=== PATIENT | female | born 1975 | race Caucasian/White ===

== ENCOUNTER 2022-09-03 08:05 | Outpatient (OUT) | payer BC, SELFPAY ==
[2022-09-03 10:10] LABS: Alanine Aminotransferase 31 U/L (14-59); Albumin Globulin Ratio 1.3; Albumin Level 4.2 g/dL (3.4-5.0); Alkaline Phosphatase 63 U/L (46-116); Anion Gap 9.4; Aspartate Amino Transferase 16 U/L (15-37); BUN Creatinine Ratio 23.2; Bilirubin Total 0.4 mg/dL (0.2-1.0); Calcium 9.5 mg/dL (8.5-10.1); Carbon Dioxide 31.5 mmol/L (21.0-32.0); Chloride 104 mmol/L (98-107); Chol HDL Ratio 3.8; Cholesterol 158 mg/dL (<=200); Estimated GFR (African America >60 (>=60); Estimated GFR (Non-African Ame >60 (>=60); Globulin 3.3 g/dL; Glucose 113 mg/dL (74-106); HDL Cholesterol 42 mg/dL (40-60); Potassium 3.9 mmol/L (3.5-5.1); Sodium 141 mmol/L (136-145); Total Protein 7.5 g/dL (6.4-8.2); Triglycerides 85 mg/dL (<=150)
[2022-09-08 22:06] LABS: Free Testosterone(Direct) 1.3 pg/mL (0.0-4.2); Testosterone 22 ng/dL (4-50)
== END 2022-09-03 08:06 | disposition home or self-care (01) ==
PROVIDERS: PCP Nurse Practitioner; Visit Provider Nurse Practitioner
DX: E28.39 Other primary ovarian failure (principal); E78.5 Hyperlipidemia, unspecified; R79.89 Other specified abnormal findings of blood chemistry
CPT/HCPCS: 36415; 80053; 80061; 82306; 82533; 82627; 84402; 84403

== ENCOUNTER 2023-05-12 07:32 | Outpatient (OUT) | payer BC, SELFPAY ==
--- NOTE | 2023-05-12 07:36 | MM_ITS ---
Patient Name: AUDREY MUÑOZ MR#: [id number] : 1975 Exam Date: 05/12/2023 Ordering Doctor: VANCE Nickerson CNP RADIOLOGY REPORT PROCEDURE: MM TOMOSYNTHESIS SCREENING BI COMPARISON: MG MAMM RT DIAG FU, 04/08/2016. MG MAMM SCREEN 3D DIEGO CAD, 01/11/2022. INDICATIONS: Screening Calculator Name NCI Breast Cancer Risk Assessment Tool 5 Year Breast Cancer Risk 1.50% Lifetime Breast Cancer Risk 11.70% Personal Breast Cancer No Personal Ovarian Cancer No Treatments None Family Cancers Grandmother-maternal with breast cancer at age ~78; Grandfather-maternal with brain cancer at age ~55; Grandmother-paternal with leukemia cancer at age ~72. LOCATION: [facility] BREAST COMPOSITION: Heterogeneously dense,which may obscure small masses. FINDINGS: DIAGNOSTIC CATEGORY 2--BENIGN FINDING. NO CHANGE FROM COMPARISON. Scattered benign-appearing nodules are present. Scattered benign-appearing calcifications are present. Scattered benign-appearing lymph nodes are present. RIGHT BREAST: No significant suspicious finding. LEFT BREAST: No significant suspicious finding. RECOMMENDATIONS: ROUTINE MAMMOGRAM AND CLINICAL EVALUATION IN 12 MONTHS. PLEASE NOTE: A NORMAL MAMMOGRAM DOES NOT EXCLUDE THE POSSIBILITY OF BREAST CANCER. A CLINICALLY SUSPICIOUS PALPABLE LUMP SHOULD BE BIOPSIED. Dictated by: Gabe Gutierrez MD on 05/12/2023 at 08:45 Approved by: Gabe Gutierrez MD on 05/12/2023 at 08:48
[2023-05-13 04:07] LABS: Estradiol 5.7 pg/mL (.); Progesterone 0.2 ng/mL (.)
[2023-05-14 21:08] LABS: Free Testosterone(Direct) 0.6 pg/mL (0.0-4.2); Testosterone 10 ng/dL (4-50)
[2023-05-17 16:09] LABS: Estrogens, Total 70 pg/mL (.)
== END 2023-05-12 07:33 | disposition home or self-care (01) ==
LOC: MAMMO 07:32
PROVIDERS: PCP Nurse Practitioner; Visit Provider Nurse Practitioner
DX: Z12.31 Encounter for screening mammogram for malignant neoplasm of breast (principal); Z78.0 Asymptomatic menopausal state; Z80.3 Family history of malignant neoplasm of breast; Z80.6 Family history of leukemia; Z80.8 Family history of malignant neoplasm of other organs or systems
CPT/HCPCS: 36415; 77063; 77067; 82306; 82627; 82670; 82672; 84140; 84144; 84402; 84403

== ENCOUNTER 2023-08-19 08:04 | Outpatient (OUT) | payer BC, SELFPAY ==
--- NOTE | 2023-08-19 08:11 | VEIN_ITS ---
Patient Name: AUDREY MUÑOZ MR#: [id number] : 1975 Exam Date: 08/19/2023 Ordering Doctor: VANCE TAYLOR CNP RADIOLOGY REPORT PROCEDURE: [facility] - OFFICE VISIT INITIAL COMPARISON: None. PROGRESS NOTES: [age] year old female who presents with a 1 year history of bilateral leg pain, spasm, and edema. The patient's leg symptoms are symmetric bilaterally. There has been a progression of symptoms over time. This increases with prolonged leg dependency. The patient describes an improvement with rest, elevation, and exercise. The patient denies any signs and symptoms to suggest arterial ischemia. The patient describes a family history varicose veins on maternal and paternal side. The patient has drinking and smoking history of occasional alcohol consumption; daily smoker. Patient has a past medical history significant for hypertension, hypercholesterolemia, endometriosis. The patient denies a history of deep venous thrombus or pulmonary embolus. See separate history and physical for medication list. No prior treatment for varicose or spider veins. Current use of compression stockings. After review of nurse notes, history and physical exam I discussed at length the pathophysiology of venous hypertension and possible treatments, therapies and strategies available. We discussed at length the importance of elevating the lower extremities above the level of the heart, increased physical activity and compression stocking use. Ultrasound venous reflux study performed today was discussed at length with the patient. The report demonstrates abnormally dilated and incompetent right great saphenous vein with associated branch saphenous varicosities. PHYSICAL EXAM: The right leg demonstrates a few varicosities, multiple reticular and spider spider veins, no ulceration, mild edema, no skin discoloration. The left leg demonstrates no significant varicosities, multiple reticular and spider veins, no ulceration, mild edema, no skin discoloration. Both thighs, legs and feet were symmetrically warm to the touch. Good posterior tibial and dorsalis pedis pulses were present bilaterally. VEIN/VC Facility EST Comprehensive IMPRESSION: 1. Right greater than left lower extremity venous insufficiency 2. Right lower extremity varicose veins 3. Mild bilateral lower extremity subcutaneous edema 4. No flow significant arterial disease 5. CEAP: C3, EC, , LA PLAN: 1. Continued use of compression stockings 2. Elevated legs and increased physical activity symptomatic relief 3. Endovenous laser ablation of right great saphenous vein. 4. Microfoam chemical ablation of lower extremity incompetent branch saphenous varicosities. 5. Sclerotherapy of multiple reticular and spider veins of lower extremities. Nurse notes, history and physical were reviewed and confirmed, see attached forms. The nurse was present throughout the physical exam and consultation Dictated by: Ben Hollingsworth M.D. on 08/19/2023 at 12:43 Approved by: Ben Hollingsworth M.D. on 08/19/2023 at 12:51
--- NOTE | 2023-08-19 08:11 | VEIN_ITS ---
Patient Name: AUDREY MUÑOZ MR#: [id number] : 1975 Exam Date: 08/19/2023 Ordering Doctor: VANCE TAYLOR CNP RADIOLOGY REPORT PROCEDURE: VC EXT VENOUS REFLUX DIEGO LMTD COMPARISON: None. INDICATIONS: Pain due to varicose veins of bilateral legs I83.813 TECHNIQUE: Duplex imaging of the lower extremity to assess the deep and superficial venous system for the presence of deep or superficial venous incompetence and to document the location and severity of disease. The study includes evaluation of the great saphenous vein (GSV), anterior accessory saphenous vein (AASV) and small saphenous vein (SSV). Patient scanned in reverse Trendelenburg and standing. FINDINGS: RIGHT LOWER EXTREMITY: Saphenofemoral Junction Reflux: Yes 11.0mm 1.8 sec GSV: Diam (mm) Reflux/ Time (sec) Proximal Thigh 7.8 Yes 1.9 Mid Thigh 5.4 Yes 1.5 Distal Thigh 4.3 No Prox Calf 3.6 Yes 0.9 Mid Calf 3.8 No Saphenopopliteal Junction Reflux: 3.5mm Yes 0.5 SSV: Proximal Calf 2.4 No Mid Calf N/A AASV: Proximal Thigh 4.2 Yes 0.6 Mid Thigh 3.3 No Distal Thigh Thrombi: No acute or chronic thrombus visualized Compressibility: Normal Flow: Normal Preforator: Dist/med calf 3.2mm with 1.0s reflux. Tech Note: Incompetent GSV. Patent varicose vein dist/med calf 3.8mm with 2.0s reflux. Patent varicose vein mid/med calf 3.7mm with 0.7s reflux. Patent varicose vein mid/med thigh 4.7mm with 1.2s reflux. LEFT LOWER EXTREMITY: Saphenofemoral Junction Reflux: Yes 7.9 mm 2.8 sec GSV: Diam (mm) Reflux/Time (sec) Proximal Thigh 5.6 Yes 2.1 Mid Thigh 1.4 No Distal Thigh 1.5 No Prox Calf 1.2 No Mid Calf 1.2 No Saphenopopliteal Junction Relux: 4.3 mm Yes 0.6 SSV: Proximal Calf 4.5 No Mid Calf 2.4 No AASV: Proximal Thigh 3.7 No Mid Thigh 1.8 No Distal Thigh Thrombi: No acute or chronic thrombus visualized Compressibility: Normal Flow: Normal [employer]: Dist/med calf 2.3mm with 0s reflux. Tech Note: Incompetent GSV. GSV is extrafascial from mid thigh to mid calf. No varicose veins visualized. CONCLUSION: 1. Abnormally dilated and incompetent right great saphenous vein with associated incompetent branch saphenous varicosities. Dictated by: Ben Hollingsworth M.D. on 08/19/2023 at 09:36 Approved by: Ben Hollingsworth M.D. on 08/19/2023 at 09:45
--- NOTE | 2023-08-19 08:27 | VEINCLINIC_ITS ---
Vital Signs 3 08/19/23 08:58 Height 5 ft 9 in Weight 103.419 kg BMI 33.7 BP 104/72 BP Location Right Brachial BP Position Supine BP Cuff Size Adult BP Source Manual Cuff Respiration 16 Pulse 53 L Pulse Oximetry (%) 98 Varicose Veins Patient states symptoms in legs are equal bilaterally. thigh: bilateral, knee: bilateral, calf: bilateral, ankle: bilateral and simmons: bilateral aching, cramping, sharp and intermittent 8 1 year Worsened in recent months: Yes other (denies) other (daily anti-inflammatory) Reports muscle spasms of leg, limb pain and leg edema (pitting) History of lower extremity trauma: No Superficial thrombophlebitis: No Family history of varicose veins: yes (mother and father) Has patient had previous lower extremity venous surgery: No Patient has previously received the following treatment(s) for lower extremity varicose veins: Reports none Does patient have a history of : yes (grav 3 para 2) Does patient intend to have future pregnancies: no Has patient had lower extremity venous scan with relux testing: Yes Support hose used: Yes (6 months) Prescribed by provider: No Problems walking or doing physical activity: No Do you walk much: Yes Do you stand much: Yes Medication compliance: good Large amounts of Vitamin K: No Review of Systems 2 ROS0 Narrative I,Ben Hollingsworth MD personally performed the services described in this documentation, as scribed by Kelsi Sal RN in my presence and it is both accurate and complete. IKelsi RN, am scribing for, and in the presence of, Dr. Ben Hollingsworth and in the presence of the patient. 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 - Non-Hodgkin lymphoma, unspecified, lymph nodes of axilla and upper limb (ICD-10) Hemorrhage following tonsillectomy and adenoidectomy ?J95.830 - Postprocedural hemorrhage of a respiratory system organ or structure following a respiratory system procedure (ICD-10) Encounter for cholecystectomy ?Z76.89 - Persons encountering health services in other specified circumstances (ICD-10) Lymphedema ?I89.0 - Lymphedema, not elsewhere classified (ICD-10) Migraines ?G43.909 - Migraine, unspecified, not intractable, without status migrainosus (ICD-10) Gastroesophageal reflux ?K21.9 - Gastro-esophageal reflux disease without esophagitis (ICD-10) Varicose veins of bilateral lower extremities with pain ?I83.813 - Varicose veins of bilateral lower extremities with pain (ICD-10) Hypertension ?I10 - Essential (primary) hypertension (ICD-10) Hypercholesteremia ?E78.00 - Pure hypercholesterolemia, unspecified (ICD-10) Endometriosis ?N80.9 - Endometriosis, unspecified (ICD-10) Surgical History (Updated 08/19/23 @ 10:02 by Kelsi Sal RN) H/O hernia repair ?Z98.890 - Other specified postprocedural states (ICD-10) ?Z87.19 - Personal history of other diseases of the digestive system (ICD-10) H/O arthroscopy of knee ?Z98.890 - Other specified postprocedural states (ICD-10) H/O: hysterectomy ?Z90.710 - Acquired absence of both cervix and uterus (ICD-10) Family History (Updated 08/19/23 @ 10:03 by Kelsi Sal, RN) Mother Family history of cancer Varicose veins of bilateral lower extremities with pain Grandmother Family history of diabetes mellitus Father Family history of hypertension Varicose veins of bilateral lower extremities with pain Son Family history of hypertension Grandfather Family history of stroke Social History (Updated 08/19/23 @ 08:47 by Kelsi Sal, RN) Within the past year, how often did you have a drink containing alcohol: monthly or less Smoking status: Current every day smoker Do you use any of these nicotine containing products: vaping products Non-prescribed substance use: denies use Meds Home Medications and Allergies Home Medications ?Medication ?Instructions ?Recorded ?Confirmed ?Type alprazolam 0.25 mg tablet (Xanax) 0.25 mg PO PRN 08/19/23 08/19/23 History atorvastatin 10 mg tablet 10 mg PO QPM 08/19/23 08/19/23 History hormonal cream 08/19/23 History hydrochlorothiazide 12.5 mg tablet 25 mg PO DAILY 08/19/23 08/19/23 History meloxicam 15 mg tablet 15 mg PO DAILY 08/19/23 08/19/23 History omeprazole 20 mg capsule,delayed 20 mg PO DAILY 08/19/23 08/19/23 History release Allergies Allergy/AdvReac Type Severity Reaction Status Date / Time rofecoxib [From Vioxx] Allergy Unknown Unknown Unverified 08/19/23 08:53 amoxicillin Allergy rash Unverified 08/19/23 08:53 iodine Allergy Rash Unverified 08/19/23 09:58 methylprednisolone Allergy itching Unverified 08/19/23 10:18 paroxetine [From Paxil] Allergy Unknown Unverified 08/19/23 08:53 sertraline [From Zoloft] Allergy Unknown Unverified 08/19/23 08:53 Exam Narrative Exam Narrative: IBen MD personally performed the services described in this documentation, as scribed by Kelsi Sal RN in my presence and it is both accurate and complete. Kelsi Zeng RN, am scribing for, and in the presence of, Dr. Ben Hollingsworth and in the presence of the patient. Constitutional Documenting provider has reviewed patient's vital signs: yes Common normals: oriented x3 Nutritional appearance: overweight Lymph Lymphatic: no lymphedema noted Cardio Peripheral pulses: posterior tibial pulses present and dorsalis pedis pulses present Extremity General: calf tenderness, edema and other findings (thigh cramps) Right lower extremity: lower leg Right lower leg: inspection (varicose veins visualized) and palpation (mild edema ) Left lower extremity: lower leg Left lower leg: inspection (varicose veins visualized) and palpation (mild edema) Extremity image (front): 2 1. variose veins 2. varicose veins Extremity image (back): 2 1. spider veins 2. spider veins Neuro Common normals: oriented x3 Results Imaging Venous US: Radiologist's impression: Incompetent right side GSV with mild varicosities Assessment and Plan Assessment and Plan (1) Varicose veins of bilateral lower extremities with pain: Plan Explained vein anatomy and physiology to patient. Explained the development of varicose veins to patient.? Explained varicose vein treatments to patient, including laser ablation, microfoam chemical ablation (Varithena), injection sclerotherapy and microphlebectomy.? Explained potential risks and benefits of varicose vein treatments.? Patient verbalizes understanding and wants to pursue varicose vein treatment.? Dr. Hollingsworth examines patient and reviews results of bilateral leg reflux u/s.?Dr. Hollingsworth and patient create plan of care. Patient also agrees to purchase bilateral thigh high compression stockings and wear them as educated.? Patient also educated on exercise and rest elevation of bilateral legs. Plan is for EVLT of right GSV, right varithena and right sclerotherapy. IBen MD personally performed the services described in this documentation, as scribed by Kelsi Sal RN in my presence and it is both accurate and complete. IKelsi RN, am scribing for, and in the presence of, Dr. Ben Hollingsworth and in the presence of the patient.
[2023-08-19 08:58] VITALS: BP 104/72; PULSE 53; O2SAT 98; BMI 33.7
--- NOTE | 2023-08-19 10:24 | W.VEIN ---
Discharge Plan Discharge Disposition: Home, Self-Care Outpatient Diagnostics: VC Endovenous Ablation 1VeinRT (Routine) Timeframe: 20231019 Facility: [facility] - Location: [facility] Ordered By: Ben Hollingsworth Follow Up Appointments: Patient will call in the fall to schedule. Patient Instructions: Venous Insufficiency (GEN) Print Language: Frisian Discharge Date/Time: 08/19/23 10:26
--- NOTE | 2023-08-19 14:16 | V.VEINS.HP ---
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 - Non-Hodgkin lymphoma, unspecified, lymph nodes of axilla and upper limb (ICD-10) Hemorrhage following tonsillectomy and adenoidectomy ?J95.830 - Postprocedural hemorrhage of a respiratory system organ or structure following a respiratory system procedure (ICD-10) Encounter for cholecystectomy ?Z76.89 - Persons encountering health services in other specified circumstances (ICD-10) Lymphedema ?I89.0 - Lymphedema, not elsewhere classified (ICD-10) Migraines ?G43.909 - Migraine, unspecified, not intractable, without status migrainosus (ICD-10) Gastroesophageal reflux ?K21.9 - Gastro-esophageal reflux disease without esophagitis (ICD-10) Varicose veins of bilateral lower extremities with pain ?I83.813 - Varicose veins of bilateral lower extremities with pain (ICD-10) Hypertension ?I10 - Essential (primary) hypertension (ICD-10) Hypercholesteremia ?E78.00 - Pure hypercholesterolemia, unspecified (ICD-10) Endometriosis ?N80.9 - Endometriosis, unspecified (ICD-10) Surgical History (Updated 08/19/23 @ 10:02 by Kelsi Sal RN) H/O hernia repair ?Z98.890 - Other specified postprocedural states (ICD-10) ?Z87.19 - Personal history of other diseases of the digestive system (ICD-10) H/O arthroscopy of knee ?Z98.890 - Other specified postprocedural states (ICD-10) H/O: hysterectomy ?Z90.710 - Acquired absence of both cervix and uterus (ICD-10) Family History (Updated 08/19/23 @ 10:03 by Kelsi Sal, RN) Mother Family history of cancer Varicose veins of bilateral lower extremities with pain Grandmother Family history of diabetes mellitus Father Family history of hypertension Varicose veins of bilateral lower extremities with pain Son Family history of hypertension Grandfather Family history of stroke Social History (Updated 08/19/23 @ 08:47 by Kelsi Sal RN) Within the past year, how often did you have a drink containing alcohol: monthly or less Smoking status: Current every day smoker Do you use any of these nicotine containing products: vaping products Non-prescribed substance use: denies use Meds Home Medications and Allergies Home Medications ?Medication ?Instructions ?Recorded ?Confirmed ?Type alprazolam 0.25 mg tablet (Xanax) 0.25 mg PO PRN 08/19/23 08/19/23 History atorvastatin 10 mg tablet 10 mg PO QPM 08/19/23 08/19/23 History hormonal cream 08/19/23 History hydrochlorothiazide 12.5 mg tablet 25 mg PO DAILY 08/19/23 08/19/23 History meloxicam 15 mg tablet 15 mg PO DAILY 08/19/23 08/19/23 History omeprazole 20 mg capsule,delayed 20 mg PO DAILY 08/19/23 08/19/23 History release Allergies Allergy/AdvReac Type Severity Reaction Status Date / Time rofecoxib [From Vioxx] Allergy Unknown Unknown Unverified 08/19/23 08:53 amoxicillin Allergy rash Unverified 08/19/23 08:53 iodine Allergy Rash Unverified 08/19/23 09:58 methylprednisolone Allergy itching Unverified 08/19/23 10:18 paroxetine [From Paxil] Allergy Unknown Unverified 08/19/23 08:53 sertraline [From Zoloft] Allergy Unknown Unverified 08/19/23 08:53 Exam Constitutional Vital Signs, click to edit/add: Last Vital Signs Pulse 53 L 08/19/23 08:58 Resp 16 08/19/23 08:58 BP 104/72 08/19/23 08:58 Pulse Ox 98 08/19/23 08:58 Assessment and Plan Assessment and Plan Plan Explained vein anatomy and physiology to patient. Explained the development of varicose veins to patient.? Explained varicose vein treatments to patient, including laser ablation, microfoam chemical ablation (Varithena), injection sclerotherapy and microphlebectomy.? Explained potential risks and benefits of varicose vein treatments.? Patient verbalizes understanding and wants to pursue varicose vein treatment.? Dr. Hollingsworth examines patient and reviews results of bilateral leg reflux u/s.?Dr. Hollingsworth and patient create plan of care. Patient also agrees to purchase bilateral thigh high compression stockings and wear them as educated.? Patient also educated on exercise and rest elevation of bilateral legs. Plan is for EVLT of right GSV, right varithena and right sclerotherapy. IBen MD personally performed the services described in this documentation, as scribed by Kelsi Sal RN in my presence and it is both accurate and complete. I, Kelsi Sal RN, am scribing for, and in the presence of, Dr. Ben Hollingsworth and in the presence of the patient.
--- NOTE | 2023-08-19 14:44 | VEINCLINIC_ITS ---
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 - Non-Hodgkin lymphoma, unspecified, lymph nodes of axilla and upper limb (ICD-10) Hemorrhage following tonsillectomy and adenoidectomy ?J95.830 - Postprocedural hemorrhage of a respiratory system organ or struct ure following a respiratory system procedure (ICD-10) Encounter for cholecystectomy ?Z76.89 - Persons encountering health services in other specified circumstances (ICD-10) Lymphedema ?I89.0 - Lymphedema, not elsewhere classified (ICD-10) Migraines ?G43.909 - Migraine, unspecified, not intractable, without status migrainosus (ICD-10) Gastroesophageal reflux ?K21.9 - Gastro-esophageal reflux disease without esophagitis (ICD-10) Varicose veins of bilateral lower extremities with pain ?I83.813 - Varicose veins of bilateral lower extremities with pain (ICD-10) Hypertension ?I10 - Essential (primary) hypertension (ICD-10) Hypercholesteremia ?E78.00 - Pure hypercholesterolemia, unspecified (ICD-10) Endometriosis ?N80.9 - Endometriosis, unspecified (ICD-10) Surgical History (Updated 08/19/23 @ 10:02 by Kelsi Sal RN) H/O hernia repair ?Z98.890 - Other specified postprocedural states (ICD-10) ?Z87.19 - Personal history of other diseases of the digestive system (ICD-10) H/O arthroscopy of knee ?Z98.890 - Other specified postprocedural states (ICD-10) H/O: hysterectomy ?Z90.710 - Acquired absence of both cervix and uterus (ICD-10) Family History (Updated 08/19/23 @ 10:03 by Kelsi Sal, RN) Mother Family history of cancer Varicose veins of bilateral lower extremities with pain Grandmother Family history of diabetes mellitus Father Family history of hypertension Varicose veins of bilateral lower extremities with pain Son Family history of hypertension Grandfather Family history of stroke Social History (Updated 08/19/23 @ 08:47 by Kelsi Sal RN) Within the past year, how often did you have a drink containing alcohol: monthly or less Smoking status: Current every day smoker Do you use any of these nicotine containing products: vaping products Non-prescribed substance use: denies use Meds Home Medications and Allergies Home Medications ?Medication ?Instructions ?Recorded ?Confirmed ?Type alprazolam 0.25 mg tablet (Xanax) 0.25 mg PO PRN 08/19/23 08/19/23 History atorvastatin 10 mg tablet 10 mg PO QPM 08/19/23 08/19/23 History hormonal cream 08/19/23 History hydrochlorothiazide 12.5 mg tablet 25 mg PO DAILY 08/19/23 08/19/23 History meloxicam 15 mg tablet 15 mg PO DAILY 08/19/23 08/19/23 History omeprazole 20 mg capsule,delayed 20 mg PO DAILY 08/19/23 08/19/23 History release Allergies Allergy/AdvReac Type Severity Reaction Status Date / Time rofecoxib [From Vioxx] Allergy Unknown Unknown Unverified 08/19/23 08:53 amoxicillin Allergy rash Unverified 08/19/23 08:53 iodine Allergy Rash Unverified 08/19/23 09:58 methylprednisolone Allergy itching Unverified 08/19/23 10:18 paroxetine [From Paxil] Allergy Unknown Unverified 08/19/23 08:53 sertraline [From Zoloft] Allergy Unknown Unverified 08/19/23 08:53 Exam Constitutional Vital Signs, click to edit/add: Last Vital Signs Pulse 53 L 08/19/23 08:58 Resp 16 08/19/23 08:58 BP 104/72 08/19/23 08:58 Pulse Ox 98 08/19/23 08:58 Assessment and Plan Assessment and Plan (1) Varicose veins of bilateral lower extremities with pain: Plan Explained vein anatomy and physiology to patient. Explained the development of varicose veins to patient.? Explained varicose vein treatments to patient, including laser ablation, microfoam chemical ablation (Varithena), injection sclerotherapy and microphlebectomy.? Explained potential risks and benefits of varicose vein treatments.? Patient verbalizes understanding and wants to pursue varicose vein treatment.? Dr. Hollingsworth examines patient and reviews results of bilateral leg reflux u/s.?Dr. Hollingsworth and patient create plan of care. Patient also agrees to purchase bilateral thigh high compression stockings and wear them as educated.? Patient also educated on exercise and rest elevation of bilateral legs. Plan is for EVLT of right GSV, right varithena and right sclerotherapy. IBen MD personally performed the services described in this documentation, as scribed by Kelsi Sal RN in my presence and it is both accurate and complete. I, Kelsi Sal RN, am scribing for, and in the presence of, Dr. Ben Hollingsworth and in the presence of the patient.
== END 2023-08-19 10:26 | disposition home or self-care (01) ==
PROVIDERS: PCP Nurse Practitioner; Visit Provider Nurse Practitioner
DX: I83.813 Varicose veins of bilateral lower extremities with pain (principal); R60.0 Localized edema
CPT/HCPCS: 93970; G0463

== ENCOUNTER 2023-10-09 13:14 | Outpatient (OUT) | payer BC, SELFPAY ==
--- NOTE | 2023-10-09 13:39 | MR_ITS ---
The [address] [address] Patient Name: AUDREY MUÑOZ MRN: [id number] date: 1975 Sex: F Assigned Patient Location: MRI Current Patient Location: MRI Accession/Order Number: [id number] Exam Date: 10/09/2023 13:50 Report Date: 10/09/2023 15:32 At the request of: MARCELLUS TAYLOR Procedure: MR head/brain wo con EXAM: MR head/brain wo con HISTORY: Dizziness R42 COMPARISON: None. TECHNIQUE: MRI of the brain was performed without contrast. FINDINGS: There is no restricted diffusion to suggest acute infarct. There is no midline shift, mass effect, or abnormal extraaxial fluid collections. The cortical sulci and ventricular system are within normal limits. There are a few nonspecific scattered foci of T2/FLAIR signal abnormality in the subcortical and periventricular white matter, likely reflect chronic microvascular ischemic changes. The major intracranial flow voids are visualized. The cerebellar tonsils are normal in position. The orbits are unremarkable. The paranasal sinuses show no air-fluid level. The mastoid air cells are clear. The calvarium and extracranial soft tissues are unremarkable. MR/MR head/brain wo con IMPRESSION: No acute intracranial abnormality. Mild T2/FLAIR signal abnormality in the supratentorial white matter, likely based on chronic microvascular ischemia or migraine headaches. Additional differential considerations include prior trauma, demyelination, vasculitis or Lyme disease. Recommend clinical correlation. Electronically authenticated by: JANNETH PRATER Date: 10/09/2023 15:32
== END 2023-10-09 13:15 | disposition home or self-care (01) ==
LOC: MRI 13:15
PROVIDERS: PCP Nurse Practitioner; Visit Provider Nurse Practitioner
DX: R00.2 Palpitations (principal); R42 Dizziness and giddiness
CPT/HCPCS: 70551; 93242

== ENCOUNTER 2023-10-10 07:32 | Outpatient (OUT) | payer BC, SELFPAY ==
--- OUTSIDE RECORDS SUMMARY | 2023-10-10 07:34 | XMS_ITS | CCD ---
Author Organization [facility] Care Team Providers Care Card Table Attendant Name Role Phone YESICA NICKERSON Primary Care Physician [phone] AICHHOLZ, WOOD HEEL FINISHER YESICA Primary Care Unavailable AICHHOLZ, WOOD HEEL FINISHER YESICA Admitting Unavailable DR DOUGLAS SOLANO V Consulting Unavailable AICHHOLZ, WOOD HEEL FINISHER YESICA Attending Unavailable AICHHOLZ, WOOD HEEL FINISHER YESICA Consulting Unavailable AICHHOLZ, WOOD HEEL FINISHER YESICA Attending Unavailable AICHHOLZ, WOOD HEEL FINISHER YESICA Consulting Unavailable AICHHOLZ, WOOD HEEL FINISHER YESICA Primary Care Unavailable AICHHOLZ, WOOD HEEL FINISHER YESICA Admitting Unavailable AICHHOLZ, WOOD HEEL FINISHER YESICA Attending Unavailable AICHHOLZ, WOOD HEEL FINISHER YESICA Consulting Unavailable AICHHOLZ, WOOD HEEL FINISHER YESICA Primary Care Unavailable AICHHOLZ, WOOD HEEL FINISHER YESICA Admitting Unavailable AICHHOLZ, WOOD HEEL FINISHER YESICA Attending Unavailable AICHHOLZ, WOOD HEEL FINISHER YESICA Consulting Unavailable AICHHOLZ, WOOD HEEL FINISHER YESICA Primary Care Unavailable AICHHOLZ, WOOD HEEL FINISHER YESICA Admitting Unavailable DR BEN HOLLINGSWORTH Consulting Unavailable AICHHOLZ, WOOD HEEL FINISHER YESICA Consulting Unavailable AICHHOLZ, WOOD HEEL FINISHER YESICA Primary Care Unavailable AICHHOLZ, WOOD HEEL FINISHER YESICA Admitting Unavailable AICHHOLZ, WOOD HEEL FINISHER YESICA Attending Unavailable Elise Stone Unavailable MD Gopal Potter Attending Provider Yesica Nickerson Primary Care Provider Gopal Potter Attending Unavailable Gopal Potter Admitting Unavailable Yesica Nickerson Primary Care Unavailable Tika Otero Unavailable Boby Cevallos Attending Unavailable CASIEHULISSES, YESICA Attending Unavailable ZEESHAN BENSON Referring Unavailable ZEESHAN BENSON Attending Unavailable CASIEHULISSESYESICA Attending Unavailable YESICA NICKERSON Attending Unavailable SUNNI MATHEW Attending Unavailable YESICA NICKERSON Referring Unavailable Boby Cevallos Attending Unavailable Allergies Allergy Classification Reported Allergen(s) Allergy Type Date of Onset Reaction(s) Facility (9 sources) Amoxicillin; Translations: [amoxicillin] Drug Allergy 3 Unknown (qualifier value) [facility] (6 sources) Iodine; Translations: [iodine containing compounds] Drug allergy Eruption of skin (disorder) [facility] (7 sources) PARoxetine; Translations: [paroxetine] Drug Allergy 3 Unknown (qualifier value) [facility] (7 sources) Povidone-Iodine; Translations: [povidone iodine topical] Drug Allergy 3 Unknown (qualifier value) [facility] (7 sources) rofecoxib; Translations: [rofecoxib] Drug Allergy 3 Unknown (qualifier value) [facility] (7 sources) Sertraline; Translations: [sertraline] Drug Allergy 3 Unknown (qualifier value) [facility] (1 source) Adhesive agent Drug allergy (disorder) [facility] (4 sources) Iodine Drug Allergy 3 burning sensation, Redness of Skin [facility] (1 source) Latex Drug allergy (disorder) [facility] (2 sources) Cortisone; Translations: [cortisone] Drug Allergy 3 Itching [facility] (1 source) Amoxicillin Drug Allergy 3 [facility] (1 source) Iodine Drug Allergy 3 [facility] (1 source) PARoxetine Drug Allergy 3 [facility] (1 source) Povidone-Iodine Drug Allergy 3 [facility] (1 source) rofecoxib Drug Allergy 3 [facility] (1 source) Sertraline Drug Allergy 3 [facility] Medications Current Medications Medication Drug Class(es) Dates Sig (Normalized) Sig (Original) ALPRAZolam 0.25 mg oral tablet (4 sources) Benzodiazepine Start: 09-14-19 alprazolam 0.25 mg Tab 30 tab(s), Refills(s) 0 Start Date: 09/13/21 Status: Ordered atorvastatin 10 mg oral tablet (1 source) HMG-CoA Reductase Inhibitor Atorvastatin Calcium 10 MG Oral for 90 Days Active DHEA 10 MG (1 source) DHEA 10 MG as di rected Orally Active hydroCHLOROthiazide 25 mg oral tablet (2 sources) Thiazide Diuretic take 1 tablet by mouth every twenty-four hours hydroCHLOROthiazide 25 MG 1 capsule in the morning Orally Once a day Active hydroCHLOROthiaz gerson Active meloxicam 15 mg oral tablet (2 sources) Nonsteroidal Anti-inflammatory Drug take 1 tablet by mouth every twenty-four hours Meloxicam 15 MG 1 tablet Orally Once a day Active Meloxicam Active metaxalone 800 mg oral table t (4 sources) Start: 11-13-2021 metaxalone 800 mg Tab Refills(s) 0 Start Date: 11/13/21 Status: Ordered Completed/Discontinued Medications Medication Drug Class(es) Dates Sig (Normalized) Sig (Original) omeprazole 40 mg delayed release oral capsule (6 sources) Proton Pump Inhibitor Start: 09-13-2021 take 1 capsule by mouth once daily omeprazole 40 mg Cap-DR 30 EA, TAKE 1 CAPSULE BY MOUTH EVERY DAY, Refills(s) 0 Start Date: 09/13/21 Status: Ordered Omeprazole Activ e Problems Active Problems Problem Classification Problem Date Documented Da te Episodic/Chronic Conditions associated with dizziness or vertigo (1 source) Dizziness and giddiness; Translations: [Dizziness and giddiness] Onset: 09-23-2023 Episodic Malaise and fatigue (1 source) Asthenia; Translations: [Weakness] Onset: 09-23-2023 Episodic Menopausal disorders (4 sources) Menopausal and female climacteric states; Translations: [MENOPAUSAL FE CLIMACTERIC STATES] Onset: 04-19-2022 Chronic Menstrual disorders (2 sources) Amenorrhea; Translations: [Amenorrhea, unspecified] Chronic Other endocrine disorders (1 source) Other specified disorders of adrenal gland; Translations: [OTHER SPEC DISORDERS ADRENAL GLAND] Onset: 04-22-2022 Chronic Other nervous system disorders (1 source) Other chronic pain; Translations: [OTHER CHRONIC PAIN] Onset: 06-19-2021 Chronic Other nutritional; endocrine; and metabolic disorders (1 source) Obesity, unspecified; Translations: [OBESITY UNSPECIFIED] Onset: 04-22-2022 Chronic Other nutritional; endocrine; and metabolic disorders (1 source) Body mass index (BMI) 30.0-30.9, adult; Translations: [BODY MASS INDEX BMI 30.0-30.9 ADULT] Onset: 06-20-2021 Chronic Other upper respiratory disease (2 sources) Seasonal allergic rhinitis; Translations: [Other seasonal allergic rhinitis] Chronic Other upper respiratory disease (1 source) Other seasonal allergic rhinitis Chronic Other upper respiratory infections (1 source) Acute pharyngitis, unspecified Episodic Residual codes; unclassified (4 sources) Localized edema; Translations: [LOCALIZED EDEMA] Onset: 05-18-2022 Episodic Thyroid disorders (1 source) Nontoxic goiter, unspecified; Translations: [NONTOXIC GOITER UNSPECIFIED] Onset: 04-22-2022 Chronic Past or Other Problems Problem Classification Problem Date Documented Da te Episodic/Chronic Other connective tissue disease (4 sources) Fibromyalgia; Translations: [FIBROMYALGIA] Onset: 06-15-2021 Episodic Other non-traumatic joint disorders (4 sources) Pain in right knee; Translations: [PAIN IN RIGHT KNEE] Onset: 06-14-2021 Episodic Other non-traumatic joint disorders (1 source) Pain in left knee; Translations: [PAIN IN LEFT KNEE] Onset: 06-19-2021 Episodic Other screening for suspected conditions (not mental disorders or infectious disease) (4 sources) Encounter for screening mammogram for malignant neoplasm of breast; Translations: [ENC SCR MAMMO MALIG NEOPLASM BREAST] Onset: 01-11-2022 Episodic Residual codes; unclassified (1 source) Family history of malignant neoplasm of breast; Translations: [FAMILY HX MALIG NEOPLASM OF BREAST] Onset: 01-16-2022 Episodic Residual codes; unclassified (1 source) Family history of leukemia; Translations: [FAMILY HISTORY OF LEUKEMIA] Onset: 01-16-2022 Episodic Residual codes; unclassified (1 source) Family history of malignant neoplasm of other organs or systems; Translations: [FAM HX MALIG NEOPLASM OTH ORGN/SYS] Onset: 01-16-2022 Episodic Unclassified (1 source) Exposure to 2019 novel coronavirus; Translations: [Contact with and (suspected) exposure to COVID19] Unclassified (1 source) Suspected COVID-19 virus infection Z20.822 Viral infection (1 source) COVID-19 Results Test Name Value Interpretation Reference Range Facility ED Note-Physicianon 09-29-19 ED Note-Physician ED Note-Physician Basic Information Time Seen: Darius LOMAXFadi 09/23/2023 11:00 Chief Complaint felt off since yesterday but today feels different. dizzy started around 0800. htn History of Present Illness 48-year-old female comes to the ED for evaluation of generalized illness. Patient started feeling unwell yesterday. She states that she feels shaky and lightheaded. She feels foggy at times. She has had some palpitations. No acute headache or visual changes. No vertiginous symptoms or ataxia. No acute chest pain or shortness of breath. No abdominal pain vomiting or diarrhea. She does state that her son got this weekend and she questions if she overdid it with activities, not eating and drinking normally and not resting. No trauma. She did notice that her blood pressure was elevated at home today. She does have a history of high blood pressure, states she has been compliant with her medications. Review of Systems A 10 point review of systems is negative except as noted above. Medical and Surgical History: Reviewed and noted Social history: Lives at home Tobacco: Denies Physical Exam Vitals & Measurements T: 37 ?C(Oral) HR: 84(Peripheral) RR: 18 BP: 140/96 BP: 136/95(Standing) BP: 135/85(Supine) SpO2: 99% HT: 175.26 cm WT: 104.3 kg BMI: 33.96 Nurses notes and vital signs reviewed and patient is not hypoxic. General: The patient appears well and in no significant distress Patient is resting comfortably on the exam bed. Skin: Warm, dry, no pallor noted. Head: Atraumatic. Neck: No JVD. Eye: Normal conjunctiva. Ears, Nose, Mouth, and Throat: Moist mucous membranes Cardiovascular: Strong distal pulses. Normal rate. No peripheral edema Chest wall: Respiratory: Respirations are nonlabored. Back: Normal range of motion, no CVA tenderness. Musculoskeletal: Normal ROM with no gross deformity. Gastrointestinal: Soft and nontender. Urological: Neurological: Awake and alert. No focal deficits. Follows commands. GCS 15. NIHSS 0 performed at 1100 Psychiatric: Cooperative. Medical Decision Making Patient resents with generalized illness. She states she feels foggy weak and lightheaded. She is awake and alert on examination. Her symptoms started 24 hours ago. NIHSS 0. She is not a thrombolytic candidate. Laboratory studies reviewed and noted. EKG without ischemic changes. She did have some mild elevation of her blood pressure that has normalized with her ED stay. CT of the brain is negative per radiologist. With serial examination she continues to be overall well-appearing without acute chest pain, headache, or neurological deficits. Suspect her symptoms are more related to stress and fatigue from her busy weekend, rather than acute medical etiology. Overall her workup is reassuring, this is discussed with her, and she is discharged home to follow-up with her PCP. Patient was encouraged to return to the ED if symptoms worsen or change. Assessment/Plan Dizziness (R42: Dizziness and giddiness) Weakness (R53.1: Weakness) Orders: BB Draw & Hold Cardiac Monitoring CBC w/ Auto Diff Communication Order Communication Order Comprehensive Metabolic Panel Continuous Pulse Oximetry CT Head or Brain w/o Contrast Dysphagia Screen eGFR Extra Dan Tube Extra SST Tube Oxygen Protocol PT & PTT Rapid Response Form Routine Capillary Glucose POC Stroke Quality Measures Troponin 0 Hr. UA with Cult Rflx XR Chest Single View Disposition Plan Patient Discharge Condition Disposition: Discharged home Condition: Improved and stable Counseled: Patient and/or family were counseled to workup, results, treatment plan and follow-up recommendations Discharge Prescription List Prescriptions No active prescription medications Follow-up With When Contact Information YESICA BRANDON In 3 days 09/26/2023 EDT [address] [place] [address] [phone] Business (1) Additional Instructions: Patient Education Dizziness Attestation I performed a substantive part of the MDM during the patient?s E/M visit. I personally made or approved the documented management plan and acknowledge its risk of complications. (Independent Interpretation) My (EKG/X-Ray/US/CT) interpretation as above. (Discussion) Management/test interpretation discussed with APC. This report was transcribed using voice recognition software. Every effort was made to ensure accuracy, however, inadvertently computerized drafter (cad) electrical mistakes may be present. Appropriate healthcare PPE was used in evaluating this patient. Problem List/Past Medical History Ongoing No qualifying data Historical No qualifying data Medications Inpatient No active inpatient medications Home alprazolam 0.25 mg Tab metaxalone 800 mg Tab omeprazole 40 mg Cap-DR Allergies Betadine (Unknown) Paxil (Unknown) Vioxx (Unknown) Zoloft (Unknown) amoxicillin (Unknown) iodine containing compounds (Rash) (more content not included)... Normal [facility] Comment on above: Result Comment: Elec tronically Signed By: Fadi Mccoy PA-C\.br\Date and Time Signed: 09/23/23 12:54 EDT\.br\Electronically Co-Signed By: Boby Cevallos DO\.br\Date and Time Co-Signed: 09/29/23 09:31 EDT BB Draw & Holdon 09-23-2023 BB D&H Sample drawn for Blood Ba Normal [facility] Comment on above: Performed By: #### 1 [id number] #### [facility] [address] [place] [address] CBC w/ Auto Diffon 4 Basophils/100 WBC (Bld) 0.6 % Normal 0.0-2.0 [facility] Comment on above: Performed By: #### 2 [id number] #### [facility] [address] [place] [address] Basophils/Leukocytes Auto (Bld) [Pure # fraction] 0.0 E9/L Normal 0.0-0.2 [facility] Comment on above: Performed By: #### 2 [id number] #### [facility] [address] [place] [address] Eosinophils (Bld) [#/Vol] 0.0 E9/L Normal 0.0-0.5 [facility] Comment on above: Performed By: #### 2 [id number] #### [facility] [address] [place] [address] Eosinophils/100 WBC (Bld) 0.6 % Normal 0.0-8.0 [facility] Comment on above: Performed By: #### 2 [id number] #### [facility] [address] [place] [address] Erythrocyte distribution width (RBC) [Ratio] 12.8 % Normal 10.9-14.2 [facility] Comment on above: Performed By: #### 2 [id number] #### [facility] [address] [place] [address] Hematocrit (Bld) [Volume fraction] 42.7 % Normal 34.0-46.0 [facility] Comment on above: Performed By: #### 2 [id number] #### [facility] [address] [place] [address] Hemoglobin (Bld) [Mass/Vol] 14.7 g/dL Normal 12.0-16.0 [facility] Comment on above: Performed By: #### 2 [id number] #### [facility] [address] [place] [address] Lymphocytes (Bld) [#/Vol] 1.8 E9/L Normal 1.0-4.0 [facility] Comment on above: Performed By: #### 2 [id number] #### [facility] [address] [place] [address] Lymphocytes/100 WBC (Bld) 30.1 % Normal 14.0-50.0 [facility] Comment on above: Performed By: #### 2 [id number] #### [facility] [address] [place] [address] MCH (RBC) [Entitic mass] 29.9 pg Normal 27.0-34.0 [facility] Comment on above: Performed By: #### 2 [id number] #### [facility] [address] [place] [address] MCHC (RBC) [Mass/Vol] 34.4 g/dL Normal 31.4-36.0 [facility] Comment on above: Performed By: #### 2 [id number] #### [facility] [address] [place] [address] MCV (RBC) [Entitic vol] 86.8 fL Normal 80.0-100.0 [facility] Comment on above: Performed By: #### 2 [id number] #### [facility] [address] [place] [address] Monocytes (Bld) [#/Vol] 0.4 E9/L Normal 0.2-1.0 [facility] Comment on above: Performed By: #### 2 [id number] #### [facility] [address] [place] [address] Neutrophils (Bld) [#/Vol] 3.7 E9/L Normal 2.0-7.5 [facility] Comment on above: Performed By: #### 2 [id number] #### [facility] [address] [place] [address] Neutrophils/100 WBC (Bld) 61.2 % Normal 36.0-75.0 [facility] Comment on above: Performed By: #### 2 [id number] #### [facility] [address] [place] [address] Platelet mean volume (Bld) [Entitic vol] 9.4 fL Normal 6.4-10.8 [facility] Comment on above: Performed By: #### 2 [id number] #### [facility] [address] [place] [address] Platelets (Bld) [#/Vol] 184.0 E9/L Normal 150.0-500.0 [facility] Comment on above: Performed By: #### 2 [id number] #### [facility] [address] [place] [address] RBC (Bld) [#/Vol] 4.9 E12/L Normal 4.3-5.9 [facility] Comment on above: Performed By: #### 2 [id number] #### [facility] [address] [place] [address] WBC corrected for nucl RBC Auto (Bld) [#/Vol] 6.0 E9/L Normal 4.0-11.0 [facility] Comment on above: Performed By: #### 2 [id number] #### [facility] [address] [place] [address] CHEMISTRYOrdered By: SYSTEM SYSTEM on 09-23-2023 Albumin [Mass/Vol] 4.7 g/dL Normal 3.3 - 5.0 gm/dL [facility] Albumin/Globulin [Mass ratio] 2.0 {ratio} Normal 1.1 - 2.2 [facility] ALP [Catalytic activity/Vol] 47 [iU]/d Normal 21 - 98 Int._Unit/L [facility] ALT No additional P-5'-P [Catalytic activity/Vol] 22 [iU]/d Normal 6 - 46 Int._Unit/L [facility] Anion gap [Moles/Vol] 10 mmol/L Normal 6 - 16 mEq/L R emisol Chem AST [Catalytic activity/Vol] 19 [iU]/d Normal 5 - 43 Int._Unit/L [facility] Bilirubin [Mass/Vol] 0.4 mg/dL Normal 0.0 - 1 .1 mg/dL [facility] Calcium [Mass/Vol] 9.9 mg/dL Normal 8.9 - 11. 1 mg/dL [facility] Chloride [Moles/Vol] 104 mmol/L Normal 101 - 1 11 mmol/L [facility] CO2 [Moles/Vol] 31 mmol/L Normal 21 - 31 mmol/L [facility] Creatinine [Mass/Vol] 0.9 mg/dL Normal 0.5 - 1.3 mg/dL [facility] eGFR 79 mL/min/1.73 m2 Normal >=59mL/min /1 .73 m2 [facility] Globulin (S) [Mass/Vol] 2.4 g/dL Normal 1.4 - 4.0 gm/dL [facility] Glucose [Mass/Vol] 101 mg/dL Normal 55 - 199 mg/dL [facility] Potassium [Moles/Vol] 3.5 mmol/L Normal 3.5 - 5.3 mmol/L [facility] Protein [Mass/Vol] 7.1 g/dL Normal 6.0 - 7.8 gm/dL [facility] Sodium [Moles/Vol] 141 mmol/L Normal 135 - 145 mmol/L [facility] Troponin HS pg/mL Low 10.10 - 27.10 pg/mL [facility] Comment on above: Interpretive Data: T he 95% CI (Confidence Interval) PPV (Positive Predictive Value) for myocardial infarction in females is 38 pg/mL, in males 51 pg/mL. The results should be used in conjunction with clinical conditions of myocardial infarction. (Access High Sensitivity Troponin I Instructions For Use, Angel Ivette, September 2017) Urea nitrogen [Mass/Vol] 24 mg/dL High 5 - 21 mg/dL [facility] Urea nitrogen/Creatinine [Mass ratio] 27 mg/mg High 10 - 20 [facility] CHEMISTRYOrdered By: Lab ROP User on 09-23-2023 Glucose [Mass/Vol] 89 mg/dL Normal 55 - 99 mg/dL [facility] POC Subsection Comment on above: Result Comment: Trixie dominique Meter POC Device SN [id number] Invalid Interpretation Code [facility] POC Subsection POC User ID [id number] Invalid Interpretation Code [facility] POC Subsection POC Username SANG HEBERT Invalid Interpretation Code [facility] POC Subsection CMPon 09-23-2023 Albumin [Mass/Vol] 4.7 g/dL Normal 3.3-5.0 [facility] Comment on above: Performed By: #### 2 [id number] #### [facility] [address] [place] [address] Albumin/Globulin (S) [Mass conc ratio] 2.0 Normal 1.1-2.2 [facility] Comment on above: Performed By: #### 2 [id number] #### [facility] [address] [place] [address] ALP [Catalytic activity/Vol] 47 Int._Unit/L Normal 21-98 [facility] Comment on above: Performed By: #### 2 [id number] #### [facility] [address] [place] [address] ALT No additional P-5'-P [Catalytic activity/Vol] 22 Int._Unit/L Normal 6-46 [facility] Comment on above: Performed By: #### 2 [id number] #### [facility] [address] [place] [address] Anion gap [Moles/Vol] 10 mmol/L Normal 6-16 [facility] Comment on above: Performed By: #### 2 [id number] #### [facility] [address] [place] [address] AST [Catalytic activity/Vol] 19 Int._Unit/L Normal 5-43 [facility] Comment on above: Performed By: #### 2 [id number] #### [facility] [address] [place] [address] Bilirubin [Mass/Vol] 0.4 mg/dL Normal 0.0-1.1 [facility] Comment on above: Performed By: #### 2 [id number] #### [facility] [address] [place] [address] Calcium [Mass/Vol] 9.9 mg/dL Normal 8.9-11.1 [facility] Comment on above: Performed By: #### 2 [id number] #### [facility] [address] [place] [address] Chloride [Moles/Vol] 104 mmol/L Normal 101-111 [facility] Comment on above: Performed By: #### 2 [id number] #### [facility] [address] [place] [address] CO2 [Moles/Vol] 31 mmol/L Normal 21-31 [facility] Comment on above: Performed By: #### 2 [id number] #### [facility] [address] [place] [address] Creatinine [Mass/Vol] 0.9 mg/dL Normal 0.5-1.3 [facility] Comment on above: Performed By: #### 2 [id number] #### [facility] [address] [place] [address] Globulin (S) [Mass/Vol] 2.4 g/dL Normal 1.4-4.0 [facility] Comment on above: Performed By: #### 2 [id number] #### [facility] [address] [place] [address] Glucose [Mass/Vol] 101 mg/dL Normal 55-199 [facility] Comment on above: Performed By: #### 2 [id number] #### [facility] [address] [place] [address] Potassium [Moles/Vol] 3.5 mmol/L Normal 3.5-5.3 [facility] Comment on above: Performed By: #### 2 [id number] #### [facility] [address] [place] [address] Protein [Mass/Vol] 7.1 g/dL Normal 6.0-7.8 [facility] Comment on above: Performed By: #### 2 [id number] #### [facility] [address] [place] [address] Sodium [Moles/Vol] 141 mmol/L Normal 135-145 [facility] Comment on above: Performed By: #### 2 [id number] #### [facility] [address] [place] [address] Urea nitrogen [Mass/Vol] 24 mg/dL High 5-21 [facility] Comment on above: Performed By: #### 2 [id number] #### [facility] [address] [place] [address] Urea nitrogen/Creatinine [Mass ratio] 27 No Units High 10-20 [facility] Comment on above: Performed By: #### 2 [id number] #### [facility] [address] [place] [address] COAGULATIONOrdered By: Abigail Robles on 09-23-2023 aPTT Coag (PPP) [Time] 35.1 s Normal 25.1 - 36.5 second(s) [facility] Comment on above: Interpretive Data: P heather 15 days - 4 weeks 1 - 5 months 6 - 11 months 1 - 5 years 6 - 10 years 11 - 17 years PTT Mean: 35.4 (27.6-45.6) Mean: 33.5 (24.8-40.7) Mean: 32.4 (25.1-40.7) Mean: 31.6 (24.0-39.2) Mean: 31.6 (26.9-38.7) Mean: 31.0 (24.6-38.4) Pediatric Reference ranges were obtained from a study by jory Mejía prepared from 1437 samples obtained at 7 different centers using the same coagulation reagent and instrumentation as [facility]. Currently there are no coagulation studies available worldwide for children to 14 days, and no normal ranges. Heparin therapeutic range (represented by Anti-Factor Xa activity of 0.2 - 0.4 U/mL) corresponds to PTT of 56.6 - 109.0 sec. INR Coag (PPP) [Relative time] 1.01 {INR} Invalid Interpretation Code [facility] Comment on above: Interpretive Data: I NR results are specifically intended to assess patients stabilized on long-term Anticoagulation therapy suggested INR s Less Intensive Anticoagulation 2.0 3.0 Conventional Range 3.0 4.5 PT Coag (PPP) [Time] 11.3 s Normal 9.4 - 1 2.5 second(s) [facility] Auto Coag Comment on above: Interpretive Data: 1 5 days - 4 weeks 1 - 5 months 6 -11 months 1 5 years 6 10 years 11 -17 years Mean: 11.2 (9.5 12.6) Mean: 11.0 (9.7 12.8) Mean: 11.0 (9.8 13.0) Mean: 11.3 (9.9 13.4) Mean: 11.7 (10.0 14.6) Mean: 11.8 (10.0 - 14.1) Pediatric Reference ranges were obtained from a study by Adonis Beyer et al. prepared from 1437 samples obtained at 7 different centers using the same coagulation reagent and instrumentation as [facility]. Currently there are no coagulation studies available worldwide for children to 14 days, and no normal ranges. CT Head or Brain w/o Contras ton 09-23-2023 CT Head or Brain w/o Contrast Exam Date/Time: 09/23/2023 11:13 EDT Reason for Exam: Neuro deficit, acute, stroke suspected;Stroke Report IMPRESSION: NEGATIVE CT SCAN OF THE BRAIN. CLINICAL HISTORY: Stroke, Neuro deficit, acute, stroke suspected. Dizziness. COMMENT: Unenhanced images were obtained. The ventricles and basal cisterns and cortical sulci appear normal. There is no mass effect nor midline shift. No abnormal attenuation within the brain is noted. There is no evidence of intracranial hemorrhage nor extra-axial hematoma. No mass lesion is evident. No skull fracture is noted. All CT scans at this facility use dose modulation, iterative reconstruction, and/or weight based dosing when appropriate to reduce radiation dose to as low as reasonably achievable. Ordering Provider: Fadi Mccoy FINAL REPORT Dictated: 09/23/2023 11:17 am Eliu Zhao M.D. Signed (Electronic Signature): 09/23/2023 11:17 am Signed by: Eliu Zhao M.D. Transcribed by: CALIN Technologist: CASI Quiñones Read 09/23/2023 11:15 am EDT, Eliu Zhao M.D. neg for bleed. Normal [facility] Capillary Glucose POCon Glucose [Mass/Vol] 89 mg/dL Normal 55-99 [facility] Comment on above: Result Comment: Trixie fox Meter Performed By: #### 2 [id number] #### [facility] [address] [place], [place] [id number] ED Clinical Summaryon 2023 ED Clinical Summary ED Clinical Summary [address] [address] ED Clinical Summary Person Information Name: AUDREY MUÑOZ [facility] Age: 48 Years : 1975 Sex: Female Language: Slovenian PCP: YESICA NICKERSON CNP Marital Status: Visit Id: Visit Reason: Dizziness; DIZZY, HIGH BLOOD PRESSURE Speciality: Acuity: 2 Enc Type: Emergency Med Service: Emergency Arrival: 09/23/2023 10:54:19 Discharge: 09/23/2023 13:01:21 LOS: 000 02:07 Checkin: 09/23/2023 10:54:19 Checkout: 09/23/2023 13:01:21 Dispo Type: Home (Routine DC) EVENTS: Event Name Event Status Request Date/Time Start Date/Time Complete Date/Time Arrive Complete 09/23/2023 10:54:19 09/23/2023 10:54:19 09/23/2023 10:54:19 Document Home Meds Request 09/23/2023 10:54:19 Triage Complete 09/23/2023 10:54:19 09/23/2023 11:03:49 09/23/2023 11:03:49 Registration Complete 09/23/2023 10:56:52 09/23/2023 10:56:52 09/23/2023 10:56:52 Reg Complete Request 09/23/2023 10:56:52 Reg Bed Request Complete 09/23/2023 10:56:52 09/23/2023 10:56:52 09/23/2023 10:56:52 Bed Assign Complete 09/23/2023 10:57:11 09/23/2023 10:57:11 09/23/2023 10:57:11 Dr Exam Complete 09/23/2023 10:57:11 09/23/2023 11:00:22 09/23/2023 11:00:22 RN Exam Complete 09/23/2023 10:57:11 09/23/2023 12:57:10 09/23/2023 12:57:10 Registration Request 09/23/2023 11:00:22 Dr Exam Complete 09/23/2023 11:01:28 09/23/2023 11:01:28 09/23/2023 11:01:28 EKG Complete 09/23/2023 11:01:44 09/23/2023 11:24:26 Pending Labs Complete 09/23/2023 11:03:42 09/23/2023 11:03:42 09/23/2023 11:03:42 Pending Labs Complete 09/23/2023 11:04:38 09/23/2023 12:35:51 Blood Collect Request 09/23/2023 11:04:38 Lab Complete 09/23/2023 11:04:38 09/23/2023 11:39:27 Patient Care Request 09/23/2023 11:04:38 CT Complete 09/23/2023 11:04:38 09/23/2023 11:05:17 09/23/2023 11:13:19 X-Ray Complete 09/23/2023 11:04:38 09/23/2023 11:18:13 09/23/2023 11:31:02 RT Request 09/23/2023 11:04:38 Pending Labs Complete 09/23/2023 11:15:34 09/23/2023 11:15:34 09/23/2023 11:39:27 Lab Complete 09/23/2023 11:15:34 09/23/2023 11:15:34 09/23/2023 11:39:27 Pending Labs Complete 09/23/2023 11:18:53 09/23/2023 11:18:53 09/23/2023 11:18:53 Wet Read Complete 09/23/2023 11:31:02 09/23/2023 12:13:16 09/23/2023 12:13:16 RR Stroke Request 09/23/2023 11:53:47 Discharge Complete 09/23/2023 12:52:50 09/23/2023 13:01:25 09/23/2023 13:01:25 RR Stroke Request 09/23/2023 12:57:10 Transfer Complete 09/23/2023 13:01:25 09/23/2023 13:01:25 09/23/2023 13:01:25 ADDRESS: [address] [place] [phone] PHYS DOC NOTES: MEDICAL INFORMATION: Prescriptions Given: Medications to Continue with No Changes Other Medications alprazolam (alprazolam 0.25 mg Tab) 30 tab(s). metaxalone (metaxalone 800 mg Tab) omeprazole (omeprazole 40 mg Cap-DR) 30 EA, TAKE 1 CAPSULE BY MOUTH EVERY DAY. PATIENT EDUCATION INFORMATION: Instructions: Dizziness Follow up: With: Address: When: YESICA NICKERSON [address], [place] [id number] [phone] Business (1) In 3 days 09/26/2023 DIAGNOSIS: Dizziness; Weakness Normal [facility] ED Patient Summaryon ED Patient Summary ED Patient Summary [address] [address] Patient Discharge Instructions Person Information Name: AUDREY MUÑOZ Age: 48 Years Arrival Date: 09/23/2023 10:54:19 Discharge Diagnosis: Dizziness; Weakness Primary Care Physician: YESICA NICKERSON CNP Provider Information Primary Provider: Boby Cevallos DO [employer] Man:Fadi Mccoy PA-C The exam and treatment you received in the Emergency Department were for an urgent problem and are not intended as complete care. It is important that you follow up with a doctor, nurse practitioner, or physician?s assistant director for ongoing care. If your symptoms become worse or you do not improve as expected and you are unable to reach your usual health care provider, you should return to the Emergency Department. We are available 24 hours a day. AUDREY MUÑOZ has been given the following list of patient education materials, prescriptions and follow-up instructions: Follow-up Instructions: With: Address: When: YESICA NICKERSON [address], [place] [phone] Business (1) In 3 days 09/26/2023 In the event that this physician does not participate in your insurance network, please consult with your insurance company to find a nearby participating provider. Patient Education Materials: Dizziness A MESSAGE TO ALL PATIENTS REGARDING OPIOIDS PRESCRIPTION OPIOIDS: WHAT YOU NEED TO KNOW Prescription opioids can be used to help relieve fpynidft-nj-srgmdp pain and are often prescribed following a surgery or injury, or for certain health conditions. These medications can be an important part of the treatment but also come with serious risks. It is important to work with your healthcare provider to make sure you are getting the safest, most effective care. WHAT ARE THE RISKS AND SIDE EFFECTS OF OPIOID USE? Prescription opioids carry serious risks of addiction and overdose, especially with prolonged use. An opioid overdose, often marked by slowed breathing, can cause sudden . The use of prescription opioids can have a number of side effects as well, even when taken as directed: ? Tolerance?meaning you might need to take more of the medication for the same pain relief ? Physical dependence?meaning you have symptoms of withdrawal when a medication is stopped ? Increased sensitivity to pain ? Constipation ? Nausea, vomiting, and dry mouth ? Sleepiness and dizziness ? Confusion ? Depression ? Low levels of testosterone that can result in lower sex drive, energy, and strength ? Itching and sweating RISKS ARE GREATER WITH: ? History of drug misuse, substance use disorder, or overdose ? Mental health conditions (such as depression or anxiety) ? Sleep apnea ? Older age (65 years and older) ? Avoid alcohol while taking prescription opioids. Also, unless specifically advised by your health care provider, medications to avoid include: ? Benzodiazepines (such as Xanax or Valium) ? Muscle relaxants (such as Soma or Flexeril) ? Hypnotics (such as Ambien or Lunesta) ? Other prescription opioids KNOW YOUR OPTIONS Talk to your health care provider about ways to manage your pain that don?t involve prescription opioids. Some of these options may actually work better and have fewer risks and side effects. Options may include: ? Pain relievers such as acetaminophen, ibuprofen, and naproxen ? Some medication that are also used for depression or seizures ? Physical therapy and exercise ? Cognitive behavioral therapy, a psychological, goal-directed approach, in which patients learn how to modify physical, behavioral, and emotional triggers of pain and stress. IF YOU ARE PRESCRIBED OPIOIDS FOR PAIN: ? Never take opioids in greater amounts or more often than prescribed. ? Follow up with your primary health care provider. o Work together to create a plan on how to manage your pain. o Talk about ways to help manage your pain that don?t involve prescription opioids. o Talk about any and all concerns and side effects. ? Help prevent misuse and abuse o Never sell or share prescription opioids. o Never use another person?s prescription opioids. ? Store prescription opioids in a secure place and out of reach of others (this may include visitors, children, friends, and family). ? Safely dispose of unused prescription opioids: Find your community drug take-back program or your pharmacy mail-back program, or flush them down the toilet, following guidance from the Food and Drug Administration (www.fda.gov/Drugs/ ResourcesForYou). ? Visit www.cdc.gov/drugove rdose to learn about the risks of opioids abuse and overdose. ? If you believe you may be struggling with addiction, tell your health career development director and ask for guidance or call [facility] National Helpline at 7-705-677-XFJ (more content not included)... Normal [facility] HEMATOLOGYOrdered By: Siobhan Robles on 09-23-2023 Basophils/100 WBC (Bld) 0.6 % Normal 0.0 - 2.0 % Remisol Heme Basophils/Leukocytes Auto (Bld) [Pure # fraction] 0.0 E9/L Normal 0.0 - 0.2 E9/L Remisol Heme Eosinophils (Bld) [#/Vol] 0.0 E9/L Normal 0.0 - 0.5 E9/L Remisol Heme Eosinophils/100 WBC (Bld) 0.6 % Normal 0.0 - 8.0 % Remisol Heme Erythrocyte distribution width (RBC) [Ratio] 12.8 % Normal 10.9 - 14.2 % Remisol Heme Hematocrit (Bld) [Volume fraction] 42.7 % Normal 34.0 - 46.0 % Remisol Heme Hemoglobin (Bld) [Mass/Vol] 14.7 g/dL Normal 12.0 - 16.0 gm/dL Rem[facility] Heme Lymphocytes (Bld) [#/Vol] 1.8 E9/L Normal 1.0 - 4.0 E9/L [facility] Heme Lymphocytes/100 WBC (Bld) 30.1 % Normal 14.0 - 50.0 % Remisol Heme MCH (RBC) [Entitic mass] 29.9 pg Normal 27.0 - 34.0 pg Remisol Heme MCHC (RBC) [Mass/Vol] 34.4 g/dL Normal 31.4 - 36.0 gm/dL Remisol Heme MCV (RBC) [Entitic vol] 86.8 fL Normal 80.0 - 100.0 fL Remisol Heme Monocytes (Bld) [#/Vol] 0.4 E9/L Normal 0.2 - 1.0 E9/L Remisol Heme Monocytes/100 WBC (Bld) 7.5 % Normal 4.0 - 14.0 % Remisol Heme Neutrophils (Bld) [#/Vol] 3.7 E9/L Normal 2.0 - 7.5 E9/L Rem[facility] Heme Neutrophils/100 WBC (Bld) 61.2 % Normal 36.0 - 75.0 % [facility]e Platelet mean volume (Bld) [Entitic vol] 9.4 fL Normal 6.4 - 10.8 fL Rem[facility] Heme Platelets (Bld) [#/Vol] 184.0 E9/L Normal 150.0 - 500.0 E9/L Remisol Heme RBC (Bld) [#/Vol] 4.9 E12/L Normal 4.3 - 5.9 E12/L [facility] WBC corrected for nucl RBC Auto (Bld) [#/Vol] 6.0 E9/L Normal 4.0 - 11.0 E9/L [facility] Heme PT & PTTon 09-23-2023 aPTT Coag (PPP) [Time] 35.1 second(s) Normal 25.1-36.5 [facility] Comment on above: Result Comment: Para meter 15 days - 4 weeks 1 - 5 months 6 - 11 months 1 - 5 years 6 - 10 years 11 - 17 years PTT Mean: 35.4 (27.6-45.6) Mean: 33.5 (24.8-40.7) Mean: 32.4 (25.1-40.7) Mean: 31.6 (24.0-39.2) Mean: 31.6 (26.9-38.7) Mean: 31.0 (24.6-38.4) Pediatric Reference ranges were obtained from a study by Adonis Beyer et al. prepared from 1437 samples obtained at 7 different centers using the same coagulation reagent and instrumentation as [facility]. Currently there are no coagulation studies available worldwide for children to 14 days, and no normal ranges. Heparin therapeutic range (represented by Anti-Factor Xa activity of 0.2 - 0.4 U/mL) corresponds to PTT of 56.6 - 109.0 sec. Performed By: #### 1 [id number] #### [facility] [address] [place] [address] INR Coag (PPP) [Relative time] 1.01 {INR} Invalid Interpretation Code [facility] Comment on above: Result Comment: INR results are specifically intended to assess patients stabilized on long-term Anticoagulation therapy suggested INR?s ?Less Intensive Anticoagulation? 2.0 ? 3.0 Conventional Range 3.0 ? 4.5 Performed By: #### 1 [id number] #### [facility] [address] [place] [address] PT Coag (PPP) [Time] 11.3 second(s) Normal 9.4-12.5 [facility] Comment on above: Result Comment: 15 d ays - 4 weeks 1 - 5 months 6 -11 months 1 ? 5 years 6 ? 10 years 11 -17 years Mean: 11.2 (9.5 ? 12.6) Mean: 11.0 (9.7 ? 12.8) Mean: 11.0 (9.8 ? 13.0) Mean: 11.3 (9.9 ? 13.4) Mean: 11.7 (10.0 ? 14.6) Mean: 11.8 (10.0 - 14.1) Pediatric Reference ranges were obtained from a study by Adonis Beyer et al. prepared from 1437 samples obtained at 7 different centers using the same coagulation reagent and instrumentation as [facility]. Currently there are no coagulation studies available worldwide for children to 14 days, and no normal ranges. Performed By: #### 1 [id number] #### [facility] [address] [place] [address] Troponin 0 Hr.on 09-23-2023 Troponin HS <2.30 Low 10.10-27.10 [facility] Comment on above: Result Comment: The 95% CI (Confidence Interval) PPV (Positive Predictive Value) for myocardial infarction in females is 38 pg/mL, in males 51 pg/mL. The results should be used in conjunction with clinical conditions of myocardial infarction. (Access High Sensitivity Troponin I Instructions For Use, Angel Teak, September 2017) Performed By: #### 1 [id number] #### [facility] [address] [place] [address] UA with Cult Rflxon 09-23-19 24 Bilirubin Ql (U) Negative Normal Negative [facility] Comment on above: Performed By: #### 4 [id number] #### [facility] [address] [place] [address] Clarity (U) Clear Normal Clear [facility] Comment on above: Performed By: #### 4 [id number] #### [facility] [address] [place] [address] Color (U) Light-Yellow Normal Yellow [facility] Comment on above: Result Comment: Micr oscopic readings are only performed on those samples that meet specific criteria set forth by [facility]. Performed By: #### 4 [id number] #### [facility] [address] [place] [address] Glucose Ql (U) Negative Normal Negative [facility] Comment on above: Performed By: #### 4 [id number] #### [facility] [address] [place] [address] Hemoglobin Auto test strip (U) [Mass/Vol] Negative Normal Negative [facility] Comment on above: Performed By: #### 4 [id number] #### [facility] [address] [place] [address] Ketones Auto test strip Ql (U) Negative Normal Negative [facility] Comment on above: Performed By: #### 4 [id number] #### [facility] [address] [place] [address] Leukocyte esterase Auto test strip Ql (U) Negative Normal Negative [facility] Comment on above: Performed By: #### 4 [id number] #### [facility] [address] [place] [address] Nitrite Auto test strip Ql (U) Negative Normal Negative [facility] Comment on above: Performed By: #### 4 [id number] #### [facility] [address] [place] [address] pH (U) 5.5 [pH] Invalid Interpretation Code 5.0-9.0 [facility] Comment on above: Performed By: #### 4 [id number] #### [facility] [address] [place] [address] Protein Ql (U) Negative Normal Negative [facility] Comment on above: Performed By: #### 4 [id number] #### [facility] [address] [place] [address] Specific gravity (U) [Rel density] 1.023 Invalid Interpretation Code 1.005-1.030 [facility] Comment on above: Performed By: #### 4 [id number] #### [facility] [address] [place] [address] Urobilinogen (U) [Mass/Vol] Negative Normal Negative [facility] Comment on above: Performed By: #### 4 [id number] #### [facility] [address] [place] [address] Type of Urine collection method Clean Catch Normal [facility] Comment on above: Performed By: #### 4 [id number] #### [facility] [address] [place] [address] URINALYSISOrdered By: SYSTEM SYSTEM on 09-23-2023 Bilirubin Ql (U) Negative Normal Negativemg/ d L [facility] UA Auto SS Clarity (U) Clear (09/23/23 12:16 PM) Normal Clear [facility] UA Auto SS Color (U) Light-Yellow 1 (09/23/23 12:16 PM) Normal Yellow [facility] UA Auto SS Comment on above: Interpretive Data: M icroscopic readings are only performed on those samples that meet specific criteria set forth by [facility]. Glucose Ql (U) Negative Normal Negativemg/d L [facility] UA Auto SS Hemoglobin Auto test strip (U) [Mass/Vol] Negative Normal Negativemg/d L [facility] UA Auto SS Ketones Auto test strip Ql (U) Negative Normal Negativemg/d L [facility] UA Auto SS Leukocyte esterase Auto test strip Ql (U) Negative Normal NegativeLeu/ uL [facility] UA Auto SS Nitrite Auto test strip Ql (U) Negative Normal Negativemg/d L [facility] UA Auto SS pH (U) 5.5 *NA* (09/23/23 12:16 PM) Invalid Interpretation Code 5.0 - 9.0 FT UA Auto SS Protein Ql (U) Negative Normal Negativemg/d L [facility] UA Auto SS Specific gravity (U) [Rel density] 1.023 *NA* (09/23/23 12:16 PM) Invalid Interpretation Code 1.005 - 1.030 [facility] UA Auto SS Urobilinogen (U) [Mass/Vol] Negative Normal Negativemg/d L [facility] UA Auto SS URINALYSISOrdered By: Fadi Mccoy on 09-23-2023 UA Spec Desc Clean Catch (09/23/23 12:16 PM) Normal [facility] UA Auto SS XR Chest Single Viewon 09-22 XR Chest Single View Exam Date/Time: 09/23/2023 11:31 EDT Reason for Exam: Chest pain Report IMPRESSION: NO EVIDENCE OF ACTIVE CHEST DISEASE. CLINICAL HISTORY: Chest pain. Dizziness. COMPARISON: 08/17/2021. COMMENT: AP portable. The heart is normal in size. The mediastinum is unremarkable. The lungs appear clear. No infiltration nor pleural effusion is evident. No significant change is noted when compared to the prior exam. Ordering Provider: Fadi Mccoy FINAL REPORT Dictated: 09/23/2023 11:55 am Eliu Zhao M.D. Signed (Electronic Signature): 09/23/2023 11:55 am Signed by: Eliu Zhao M.D. Transcribed by: CALIN Technologist: RAQUEL, Technical Comments Radiation Dose: Ka,r in mGy = na DAP = na Normal [facility] eGFRon 09-23-2023 eGFR 79 mL/min/1.73 m2 Normal >=59 [facility] Comment on above: Order Comment: Order added by Discern Expert. Performed By: #### 1 [id number] #### [facility] [address] [place] [address] COVID Quick Testingon 2022 Result Positive agreement24 [email or web address] Other Cortisol, ACTH Stimulationon 06-28-2022 Cortisol, ACTH Stimulation Normal [facility] Comment on above: Result Comment: [employer] 11.4 Col: 06/28/22 1000 [place] 30Min 20.6 Col: 06/28/22 1050 [place] 60Min 23.2 Col: 06/28/22 1120 PERFORMED BY: [place] [address] PATHOLOGIST [employer] LYDIA JACKSON M.D. Performed By: #### C ORT STIMULAT #### [address] No Panel InformationOrdered By: Gopal Potter on 06-28-2022 Cortisol Response to Stimulation See comment [facility] Comment on above: [employer] 11.4 Col: 06/28/22 1000 [place] 30Min 20.6 Col: 06/28/22 1050 [place] 60Min 23.2 Col: 06/28/22 1120 Quick Strepon 06-11-2022 S. pyogenes Org specific cx Ql (Throat) Negative agreement24 avtal24 Other Quick Strep agreement24 avtal24 Other PROF CHEM 8 (BAS METB)on Anion gap [Moles/Vol] 10.7 mmol/L Normal [facility] Comment on above: Performed By: #### B MP #### [facility] [address] [address] [address] Brandon Hodges Calcium [Mass/Vol] 9.3 mg/dL Normal 8.5-10.1 [facility] Comment on above: Performed By: #### B MP #### [facility] [address] [address] [address] Brandon Hodges Chloride [Moles/Vol] 103 mmol/L Normal 98-107 [facility] Comment on above: Performed By: #### B MP #### [facility] [address] [address] [address] Brandon Hodges CO2 [Moles/Vol] 31.5 mmol/L Normal 21.0-32.0 [facility] Comment on above: Performed By: #### B MP #### [facility] [address] [address] [address] Brandon Hodges Creatinine [Mass/Vol] 0.76 mg/dL Normal 0.55-1.02 [facility] Comment on above: Performed By: #### B MP #### [facility] [address] [address] [address] Brandon Hodges EGFR-AF PARAGUAYAN >60 Normal >=60 [facility] Comment on above: Performed By: #### B MP #### [facility] [address] [address] [address] Brandon Hodges EGFR-NON AF PARAGUAYAN >60 Normal >=60 [facility] Comment on above: Performed By: #### B MP #### [facility] [address] [address] [address] Brandon Hodges Glucose [Mass/Vol] 124 mg/dL Critically high 74-106 [facility] Comment on above: Performed By: #### B MP #### [facility] [address] [address] [address] Brandon Hodges Potassium [Moles/Vol] 4.2 mmol/L Normal 3.5-5.1 [facility] Comment on above: Performed By: #### B MP #### [facility] [address] [address] [address] Brandon Hodges Sodium [Moles/Vol] 141 mmol/L Normal 136-145 [facility] Comment on above: Performed By: #### B MP #### [facility] [address] [address] [address] Brandon Hodges Urea nitrogen [Mass/Vol] 19.0 mg/dL Critically high 7.0-18.0 [facility] Comment on above: Performed By: #### B MP #### [facility] [address] [address] [address] Brandon Hodges Urea nitrogen/Creatinine [Mass ratio] 25.0 mg/mg Normal [facility] Comment on above: Performed By: #### B MP #### [facility] [address] [address] [address] Brandon Hodges TESTOSTERONE, FREE,DIRECT, T OTALon 04-25-2022 Free Testosterone(Direct) <0.2 Normal 0.0-4.2 [facility] Comment on above: Result Comment: Perf ormed at: BN Performed By: #### I NSULIN #### [facility] [address] [address] [address] Brandon Hodges Testosterone [Mass/Vol] 3 ng/dL Critically low 4-50 [facility] Comment on above: Result Comment: Perf ormed at: CB Performed By: #### I NSULIN #### [facility] [address] [address] [address] Brandon Hodges ESTRONEon 04-23-2022 Estrone, Serum 20 pg/mL Normal [facility] Comment on above: Result Comment: Rang e Adult (Premenopausal) 27 - 231 Menstrual Cycle (1-10 days) 19 - 149 Menstrual Cycle (11-20 days) 32 - 176 Menstrual Cycle (21-30 days) 37 - 200 Adult (Postmenopausal) 0 - 125 Performed By: #### I NSULIN #### [facility] [address] [address] [address] Brandon Hodges REVERSE T3on 04-23-2022 Reverse T3, Serum 36.8 ng/dL Critically high 9.2-24.1 Th e [facility] Comment on above: Result Comment: This test was developed and its performance characteristics determined by [facility]. It has not been cleared or approved by the Food and Drug Administration. Performed By: #### B MP #### [facility] [address] [place] [address] Dr. Brandon Hodges CORTISOLon 04-20-2022 Cortisol 1.0 ug/dL Normal [facility] Comment on above: Result Comment: [place] isol AM 6.2 - 19.4 Cortisol PM 2.3 - 11.9 Performed By: #### C ORTISO #### [facility] [address] [place] [address] Dr. Brandon Hodges DHEA-SULFATEon 04-20-2022 DHEA-Sulfate 55.9 ug/dL Normal 41.2-243.7 [facility] Comment on above: Performed By: #### I NSULIN #### [facility] [address] [place] [address] Dr. Brandon Hodges ESTRADIOLon 04-20-2022 Estradiol 25.1 pg/mL Normal [facility] Comment on above: Result Comment: Adul t Female: Follicular phase 12.5 - 166.0 Ovulation phase 85.8 - 498.0 Luteal phase 43.8 - 211.0 Postmenopausal <6.0 - 54.7 1st trimester 215.0 - >4300.0 Jason ECLIA methodology Performed By: #### B MP #### [facility] [address] [place] [address] Dr. Brandon Hodges INSULINon 04-20-2022 Insulin 30.0 uIU/mL Critically high 2.6-24.9 [facility] Comment on above: Performed By: #### I NSULIN #### [facility] [address] [place] [address] Dr. Brandon Hodges PROGESTERONEon 04-20-2022 Progesterone <0.1 Normal [facility] Comment on above: Result Comment: Foll icular phase 0.1 - 0.9 Luteal phase 1.8 - 23.9 Ovulation phase 0.1 - 12.0 First trimester 11.0 - 44.3 Second trimester 25.4 - 83.3 Third trimester 58.7 - 214.0 Postmenopausal 0.0 - 0.1 Performed By: #### B MP #### [facility] [address] [place] [address] Dr. Brandon Hodges SEX HORMONE-BINDING GLOBULIN on 04-20-2022 Sex Horm Binding Glob, Serum 30.3 nmol/L Normal 24.6-122.0 [facility] Comment on above: Performed By: #### B MP #### [facility] [address] [place] [address] Dr. Brandon Hodges FERRITINon 04-19-2022 Ferritin [Mass/Vol] 53.0 ng/mL Normal 6.2-137.0 [facility] Comment on above: Performed By: #### B MP #### [facility] [address] [place] [address] Dr. Brandon Hodges FREE T3on 04-19-2022 FREE T3 2.34 pg/mlL Normal 2.18-3.98 [facility] Comment on above: Performed By: #### T SH, T4, FT3, BMP, LIPID, LIVER #### [facility] [address] [place] [address] Dr. Brandon Hodges FREE T4on 04-19-2022 Free T4 [Mass/Vol] 0.92 ng/dL Normal 0.76-1.46 [facility] Comment on above: Performed By: #### B MP #### [facility] [address] [place] [address] Dr. Brandon Hodges GLYCOHEMOGLOBIN A1Con 2022 ADA RECOMMENDATION SEE BELOW Normal [facility] Comment on above: Result Comment: ADA RECOMMENDED LIMIT 4.0 - 6.0 ADA THERAPEUTIC TARGET < 7.0 ACTION SUGGESTED > 7.0 Performed By: #### A 1C #### [facility] [address] [place] [address] Dr. Brandon Hodges Glucose [Mass/Vol] 105 mg/dL Normal [facility] Comment on above: Performed By: #### A 1C #### [facility] [address] [address] [address] Brandon Hodges HbA1c (Bld) [Mass fraction] 5.3 % Normal 4.5-6.2 [facility] Comment on above: Performed By: #### A 1C #### [facility] [address] [address] [address] Brandon Hodges LIPID PROFILEon 04-19-2022 CHOL-HDL RATIO NORM SEE BELOW Normal [facility] Comment on above: Result Comment: 3.3 - 4.4 LOW RISK 4.4 - 7.1 AVERAGE RISK 7.1 - 11.0 MODERATE RISK >11.0 HIGH RISK Performed By: #### T SH, T4, FT3, BMP, LIPID, LIVER #### [facility] [address] [place] [address] Dr. Brandon Hodges Cholesterol [Mass/Vol] 258 mg/dL Critically high <=200 [facility] Comment on above: Performed By: #### T SH, T4, FT3, BMP, LIPID, LIVER #### [facility] [address] [address] [address] Brandon Hodges Cholesterol in HDL [Mass/Vol] 47 mg/dL Normal 40-60 [facility] Comment on above: Performed By: #### T SH, T4, FT3, BMP, LIPID, LIVER #### [facility] [address] [address] [address] Brandon Hodges Cholesterol in LDL [Mass/Vol] 199.0 mg/dL Normal [facility] Comment on above: Performed By: #### T SH, T4, FT3, BMP, LIPID, LIVER #### [facility] [address] [place] [address] Dr. Brandon Hodges Cholesterol.total/Chol esterol in HDL [Mass ratio] 5.5 {ratio} Normal [facility] Comment on above: Performed By: #### T SH, T4, FT3, BMP, LIPID, LIVER #### [facility] [address] [place] [address] Dr. Brandon Hodges HDL NORMAL > or = 60 mg/dl - LOW CARDIOVASCULAR RISK <40 mg/dl - HIGH CARDIOVASCULAR RISK Normal [facility] Comment on above: Performed By: #### T SH, T4, FT3, BMP, LIPID, LIVER #### [facility] [address] [place] [address] Dr. Brandon Hodges LDL CALC NORMAL SEE BELOW Normal [facility] Comment on above: Result Comment: <100 mg/dl OPTIMAL 100 - 129 mg/dl NEAR OR ABOVE OPTIMAL 130 - 159 mg/dl BORDERLINE HIGH 160 - 189 mg/dl HIGH >190 mg/dl VERY HIGH Performed By: #### T SH, T4, FT3, BMP, LIPID, LIVER #### [facility] [address] [address] [address] Brandon Hodges Triglyceride [Mass/Vol] 60 mg/dL Normal <=150 [facility] Comment on above: Performed By: #### T SH, T4, FT3, BMP, LIPID, LIVER #### [facility] [address] [address] [address] Brandon Hodges VLDL CALC 12.0 mg/dL Normal [facility] Comment on above: Performed By: #### T SH, T4, FT3, BMP, LIPID, LIVER #### [facility] [address] [address] [address] Brandon Hodges LIVER PROFILEon 04-19-2022 Albumin [Mass/Vol] 4.3 g/dL Normal 3.4-5.0 [facility] Comment on above: Performed By: #### T SH, T4, FT3, BMP, LIPID, LIVER #### [facility] [address] [place] [address] Dr. Brandon Hodges Albumin/Globulin [Mass ratio] 1.3 {ratio} Normal [facility] Comment on above: Performed By: #### T SH, T4, FT3, BMP, LIPID, LIVER #### [facility] [address] [place] [address] Dr. Brandon Hodges ALP [Catalytic activity/Vol] 86 U/L Normal 46-116 [facility] Comment on above: Performed By: #### T SH, T4, FT3, BMP, LIPID, LIVER #### [facility] [address] [place] [address] Dr. Brandon Hodges ALT [Catalytic activity/Vol] 31 U/L Normal 14-59 [facility] Comment on above: Performed By: #### T SH, T4, FT3, BMP, LIPID, LIVER #### [facility] [address] [place] [address] Dr. Brandon Hodges AST [Catalytic activity/Vol] 18 U/L Normal 15-37 [facility] Comment on above: Performed By: #### T SH, T4, FT3, BMP, LIPID, LIVER #### [facility] [address] [place] [address] Dr. Brandon Hodges BILI, CONJUGATED <0.1 Normal 0.0-0.2 [facility] Comment on above: Performed By: #### T SH, T4, FT3, BMP, LIPID, LIVER #### [facility] [address] [place] [address] Dr. Brandon Hodges Bilirubin [Mass/Vol] 0.3 mg/dL Normal 0.2-1.0 [facility] Comment on above: Performed By: #### T SH, T4, FT3, BMP, LIPID, LIVER #### [facility] [address] [place] [address] Dr. Brandon Hodges Globulin (S) [Mass/Vol] 3.4 g/dL Normal [facility] Comment on above: Performed By: #### T SH, T4, FT3, BMP, LIPID, LIVER #### [facility] [address] [place] [address] Dr. Brandon Hodges Protein [Mass/Vol] 7.7 g/dL Normal 6.4-8.2 [facility] Comment on above: Performed By: #### T SH, T4, FT3, BMP, LIPID, LIVER #### [facility] [address] [place] [address] Dr. Brandon Hodges PROF CHEM 8 (BAS METB)on Anion gap [Moles/Vol] 14.5 mmol/L Normal [facility] Comment on above: Performed By: #### T SH, T4, FT3, BMP, LIPID, LIVER #### [facility] [address] [address] [address] Brandon Hodges Calcium [Mass/Vol] 9.6 mg/dL Normal 8.5-10.1 [facility] Comment on above: Performed By: #### T SH, T4, FT3, BMP, LIPID, LIVER #### [facility] [address] [place] [address] Dr. Brandon Hodges Chloride [Moles/Vol] 108 mmol/L Critically high 98-107 [facility] Comment on above: Performed By: #### T SH, T4, FT3, BMP, LIPID, LIVER #### [facility] [address] [place] [address] Dr. Brandon Hodges CO2 [Moles/Vol] 26.1 mmol/L Normal 21.0-32.0 [facility] Comment on above: Performed By: #### T SH, T4, FT3, BMP, LIPID, LIVER #### [facility] [address] [place] [address] Dr. Brandon Hodges Creatinine [Mass/Vol] 0.75 mg/dL Normal 0.55-1.02 [facility] Comment on above: Performed By: #### T SH, T4, FT3, BMP, LIPID, LIVER #### [facility] [address] [place] [address] Dr. Brandon Hodges EGFR-AF PARAGUAYAN >60 Normal >=60 [facility] Comment on above: Performed By: #### T SH, T4, FT3, BMP, LIPID, LIVER #### [facility] [address] [place] [address] Dr. Brandon Hodges EGFR-NON AF PARAGUAYAN >60 Normal >=60 [facility] Comment on above: Performed By: #### T SH, T4, FT3, BMP, LIPID, LIVER #### [facility] [address] [place] [address] Dr. Brandon Hodges Glucose [Mass/Vol] 122 mg/dL Critically high 74-106 [facility] Comment on above: Performed By: #### T SH, T4, FT3, BMP, LIPID, LIVER #### [facility] [address] [place] [address] Dr. Brandon Hodges Potassium [Moles/Vol] 4.6 mmol/L Normal 3.5-5.1 [facility] Comment on above: Performed By: #### T SH, T4, FT3, BMP, LIPID, LIVER #### [facility] [address] [address] [address] Brandon Hodges Sodium [Moles/Vol] 144 mmol/L Normal 136-145 [facility] Comment on above: Performed By: #### T SH, T4, FT3, BMP, LIPID, LIVER #### [facility] [address] [place] [address] Dr. Brandon Hodges Urea nitrogen [Mass/Vol] 13.0 mg/dL Normal 7.0-18.0 [facility] Comment on above: Performed By: #### T SH, T4, FT3, BMP, LIPID, LIVER #### [facility] [address] [place] [address] Dr. Brandon Hodges Urea nitrogen/Creatinine [Mass ratio] 17.3 mg/mg Normal [facility] Comment on above: Performed By: #### T SH, T4, FT3, BMP, LIPID, LIVER #### [facility] [address] [place] [address] Dr. Brandon Hodges T4on 04-19-2022 T4 [Mass/Vol] 9.00 ug/dL Normal 4.80-13.90 [facility] Comment on above: Performed By: #### T SH, T4, FT3, BMP, LIPID, LIVER #### [facility] [address] [place] [address] Dr. Brandon Hodges TSHon 04-19-2022 TSH 0.335 uIU/mL Critically low 0.358-3.740 [facility] Comment on above: Performed By: #### T SH, T4, FT3, BMP, LIPID, LIVER #### [facility] [address] [place] [address] Dr. Brandon Hodges VITAMIN D 25 OHon 04-19-2022 VIT D 25-OH 29.4 ng/mL Normal [facility] Comment on above: Performed By: #### B MP #### [facility] [address] [place], [place] [address] Dr. Brandon Hodges VIT D RANGES SEE BELOW Normal [facility] Comment on above: Result Comment: <20 ng/mL Vit D deficient 20 - <30 ng/mL Vit D insufficient 30 - 100 ng/mL Vit D sufficient >100 ng/mL Potential Toxicity Performed By: #### B MP #### [facility] [address] [place], [place] [address] Dr. Brandon Hodges MG MAMM SCREEN 3D DIEGO CADon 01-11-2022 MG MAMM SCREEN 3D DIEGO CAD Patient: AUDREY MUÑOZ Exam Date: 01/11/2022 : 1975 Gender:F Ordering : [facility] Admission #: [id number] Family : Order #: [id number] CLICK HERE TO VIEW EXAM RADIOLOGY REPORT PROCEDURE: MAMMOGRAM SCREENING 3D BILATERAL CAD COMPARISON: MG MAMM RT DIAG FU, 04/08/2016. MG MAMM SCREEN DIEGO W CAD, 03/28/2016. INDICATIONS: Screening mammography Calculator Name NCI Breast Cancer Risk Assessment Tool 5 Year Breast Cancer Risk 1.70% Lifetime Breast Cancer Risk 12.00% Personal Breast Cancer No Personal Ovarian Cancer No Treatments None Family Cancers Grandmother-materna l with breast cancer at age 78; Grandfather-materna l with brain cancer at age 55; Grandmother-paterna l with leukemia cancer at age 72. LOCATION: [facility] BREAST COMPOSITION: Heterogeneously dense,which may obscure small masses. FINDINGS: DIAGNOSTIC CATEGORY 2--BENIGN FINDING: RIGHT BREAST: No significant suspicious finding. Scattered benign-appearing lymph nodes are present. No significant change has occurred. LEFT BREAST: No significant suspicious finding. Scattered benign-appearing calcifications are present. RECOMMENDATIONS: ROUTINE MAMMOGRAM AND CLINICAL EVALUATION IN 12 MONTHS. PLEASE NOTE: A NORMAL MAMMOGRAM DOES NOT EXCLUDE THE POSSIBILITY OF BREAST CANCER. A CLINICALLY SUSPICIOUS PALPABLE LUMP SHOULD BE BIOPSIED. Dictated by: Ben Hollingsworth M.D. on 01/15/2022 at 11:59 Approved by: Ben Hollingsworth M.D. on 01/15/2022 at 12:03 Normal [facility] CHEMISTRYOrdered By: SYSTEM SYSTEM on 08-17-2021 Anion gap [Moles/Vol] 9 mmol/L Normal 6 - 16 mEq/L F C Remisol Calcium [Mass/Vol] 9.2 mg/dL Normal 8.9 - 11. 1 mg/dL [facility] Chloride [Moles/Vol] 107 mmol/L Normal 101 - 1 11 mmol/L [facility] CO2 [Moles/Vol] 27 mmol/L Normal 21 - 31 mmol/L [facility] Creatinine [Mass/Vol] 0.8 mg/dL Normal 0.5 - 1.3 mg/dL [facility] GFR/1.73 sq M.predicted among blacks MDRD (S/P/Bld) [Vol rate/Area] mL/min/1.73 m2 Normal >=59mL/min/1 .73 m2 [facility] Chem S GFR/1.73 sq M.predicted among non-blacks MDRD (S/P/Bld) [Vol rate/Area] mL/min/1.73 m2 Normal >=59mL/min/1 .73 m2 [facility] Chem S Glucose [Mass/Vol] 96 mg/dL Normal 55 - 199 mg/dL [facility] Potassium [Moles/Vol] 3.8 mmol/L Normal 3.5 - 5.3 mmol/L [facility] Sodium [Moles/Vol] 139 mmol/L Normal 135 - 145 mmol/L [facility] Urea nitrogen [Mass/Vol] 18 mg/dL Normal 5 - 21 mg/dL [facility] Urea nitrogen/Creatinine [Mass ratio] 22 mg/mg High 10 - 20 [facility] HEMATOLOGYOrdered By: Alana Hill on 08-17-2021 Erythrocyte distribution width (RBC) [Ratio] 12.9 % Normal 10.9 - 14.2 % [facility] Hematocrit (Bld) [Volume fraction] 41.2 % Normal 34.0 - 46.0 % [facility] Hemoglobin (Bld) [Mass/Vol] 14.2 g/dL Normal 12.0 - 16.0 gm/dL [facility] MCH (RBC) [Entitic mass] 29.6 pg Normal 27.0 - 34.0 pg [facility] MCHC (RBC) [Mass/Vol] 34.5 g/dL Normal 31.4 - 36.0 gm/dL [facility] MCV (RBC) [Entitic vol] 85.8 fL Normal 80.0 - 100.0 fL [facility] Platelet mean volume (Bld) [Entitic vol] 8.7 fL Normal 6.4 - 10.8 fL [facility] Platelets (Bld) [#/Vol] 179.0 E9/L Normal 150.0 - 500.0 E9/L [facility] RBC (Bld) [#/Vol] 4.8 E12/L Normal 4.3 - 5.9 E12/L [facility] WBC corrected for nucl RBC Auto (Bld) [#/Vol] 5.1 E9/L Normal 4.0 - 11.0 E9/L [facility]SS MRI Knee w/o Righton 022 MRI Knee w/o Right HISTORY: Right knee pain and swelling for a year. Decreased range of motion. Concern for medial meniscal tear. TECHNIQUE: Routine non-contrast MRI of the right knee COMPARISON: None RESULT: MENISCI: Medial Meniscus: Horizontal tearing near junction of the posterior horn and body, contacting the inferior articular surface without significant meniscal displacement. Lateral Meniscus: Intact LIGAMENTS: ACL, PCL, MCL, LCL Complex: Intact CARTILAGE: Small areas of low-grade partial-thickness chondral loss or fissuring involving the patella. TENDONS: Distal quadriceps intact. Patellar tendon intact. Popliteus tendon intact. BONES AND MARROW: No evidence of fracture or bone marrow replacing process. MUSCLES: Muscle bulk and signal intensity are normal. JOINT FLUID AND SYNOVIUM: Small joint effusion. No synovitis. No Palencia's cyst. OTHER: Subcutaneous edema, especially anteriorly. IMPRESSION: Medial meniscal tear. Report reported and signed by Colt Silvestre on 08/01/2021 1109 Normal [facility] THYROGLOBULINon 06-24-2021 Thyroglobulin 3.9 ng/mL Normal [facility] Comment on above: Result Comment: This test was developed and its performance characteristics determined by [facility]. It has not been cleared or approved by the Food and Drug Administration. Reference Range: Pubertal Children and Adults: <40 According to the National Academy of Clinical Biochemistry, the reference interval for Thyroglobulin (TG) should be related to euthyroid patients and not for patients who underwent thyroidectomy. TG reference intervals for these patients depend on the residual mass of the thyroid tissue left after surgery. Establishing a post-operative baseline is recommended. The assay quantitation limit is 2.0 ng/mL. Performed By: #### B MP #### [facility] [address] [place] [address] Dr. Brandon Hodges RENITA by IFAon 06-18-2021 Antinuclear Antibodies, IFA Negative Normal [facility] Comment on above: Result Comment: Nega tive <1:80 Borderline 1:80 Positive >1:80 ICAP nomenclature: AC-0 For more information about Hep-2 cell patterns use ANApatterns.org, the official website for the International Consensus on Antinuclear Antibody (RENITA) Patterns (ICAP). Performed By: #### I NSULIN #### [facility] [address] [place] [address] Dr. Brandon Hodges ANTISTREPTOLYSIN O AB (ASO)o n 06-16-2021 Antistreptolysin O Ab 108.1 IU/mL Normal 0.0-200.0 [facility] Comment on above: Performed By: #### I NSULIN #### [facility] [address] [place] [address] Dr. Brandon Hodges RHEUMATOID FACTORon 06-17-19 RA Latex Turbid. 11.1 IU/mL Normal <14.0 [facility] Comment on above: Performed By: #### I NSULIN #### [facility] [address] [place] [address] Dr. Brandon Hodges CBC AUTO DIFFon 06-15-2021 BASO # 0.0 103/ul Normal 0.0-0.1 [facility] Comment on above: Performed By: #### I NSULIN #### [facility] [address] [place] [address] Dr. Brandon Hodges Basophils/100 WBC (Bld) 0.4 % Normal 0.2-2.0 [facility] Comment on above: Performed By: #### I NSULIN #### [facility] [address] [place] [address] Dr. Brandon Hodges EO # 0.0 103/ul Normal 0.0-0.7 [facility] Comment on above: Performed By: #### I NSULIN #### [facility] [address] [place] [address] Dr. Brandon Hodges Eosinophils/100 WBC (Bld) 0.7 % Critically low 0.9-7.0 [facility] Comment on above: Performed By: #### I NSULIN #### [facility] [address] [place] [address] Dr. Brandon Hodges Erythrocyte distribution width (RBC) [Ratio] 12.8 % Normal 11.0-15.0 [facility] Comment on above: Performed By: #### I NSULIN #### [facility] [address] [place] [address] Dr. Brandon Hodges Hematocrit (Bld) [Volume fraction] 43.3 % Normal 36.0-48.0 [facility] Comment on above: Performed By: #### I NSULIN #### [facility] [address] [place] [address] Dr. Brandon Hodges Hemoglobin (Bld) [Mass/Vol] 14.1 g/dL Normal 12.0-16.0 [facility] Comment on above: Performed By: #### I NSULIN #### [facility] [address] [place] [address] Dr. Brandon Hodges IG # 0.00 10e3/ul Normal 0.00-0.03 [facility] Comment on above: Performed By: #### I NSULIN #### [facility] [address] [place] [address] Dr. Brandon Hodges IG % 0.0 % Normal 0.0-0.5 [facility] Comment on above: Performed By: #### I NSULIN #### [facility] [address] [place] [address] Dr. Brandon Hodges LYMPH # 1.6 103/ul Normal 1.2-3.8 [facility] Comment on above: Performed By: #### I NSULIN #### [facility] [address] [place] [address] Dr. Brandon Hodges Lymphocytes/100 WBC (Bld) 35.1 % Normal 20.5-60.0 [facility] Comment on above: Performed By: #### I NSULIN #### [facility] [address] [place] [address] Dr. Brandon Hodges MANUAL DIFF REQ NO Normal [facility] Comment on above: Performed By: #### I NSULIN #### [facility] [address] [place] [address] Dr. Brandon Hodges MCH (RBC) [Entitic mass] 29.4 pg Normal 26.7-34.0 [facility] Comment on above: Performed By: #### I NSULIN #### [facility] [address] [place] [address] Dr. Brandon Hodges MCHC (RBC) [Mass/Vol] 32.6 g/dL Normal 29.9-35.2 [facility] Comment on above: Performed By: #### I NSULIN #### [facility] [address] [place] [address] Dr. Brandon Hodges MCV (RBC) [Entitic vol] 90.2 fL Normal 81.0-99.0 [facility] Comment on above: Performed By: #### I NSULIN #### [facility] [address] [place] [address] Dr. Brandon Hodges MONO # 0.3 103/ul Normal 0.3-0.8 [facility] Comment on above: Performed By: #### I NSULIN #### [facility] [address] [place] [address] Dr. Brandon Hodges Monocytes/100 WBC (Bld) 6.8 % Normal 1.7-12.0 [facility] Comment on above: Performed By: #### I NSULIN #### [facility] [address] [place] [address] Dr. Brandon Hodges NEUT # 2.6 103/ul Normal 1.4-6.5 [facility] Comment on above: Performed By: #### I NSULIN #### [facility] [address] [place] [address] Dr. Brandon Hodges Neutrophils/100 WBC (Bld) 57.0 % Normal 43.0-75.0 [facility] Comment on above: Performed By: #### I NSULIN #### [facility] [address] [place] [address] Dr. Brandon Hodges Platelet mean volume (Bld) [Entitic vol] 10.8 fL Normal 9.5-13.5 [facility] Comment on above: Performed By: #### I NSULIN #### [facility] [address] [place] [address] Dr. Brandon Hodges PLT 220 103/ul Normal 150-450 [facility] Comment on above: Performed By: #### I NSULIN #### [facility] [address] [place] [address] Dr. Brandon Hodges RBC 4.80 106/ul Normal 4.20-5.40 [facility] Comment on above: Performed By: #### I NSULIN #### [facility] [address] [place] [address] Dr. Brandon Hodges WBC 4.6 103/ul Normal 4.0-11.0 [facility] Comment on above: Performed By: #### I NSULIN #### [facility] [address] [place] [address] Dr. Brandon Hodges CRPon 06-15-2021 CRP [Mass/Vol] mg/L Normal <=1.0 [facility] Comment on above: Performed By: #### T SH, T4, FT3, BMP, LIPID, LIVER #### [facility] [address] [place] [address] Dr. Brandon Hodges FREE T4on 06-15-2021 Free T4 [Mass/Vol] 0.86 ng/dL Normal 0.76-1.46 [facility] Comment on above: Performed By: #### I NSULIN #### [facility] [address] [place] [address] Dr. Branodn Hodges LIPID PROFILEon 06-15-2021 CHOL-HDL RATIO NORM SEE BELOW Normal [facility] Comment on above: Result Comment: 3.3 - 4.4 LOW RISK 4.4 - 7.1 AVERAGE RISK 7.1 - 11.0 MODERATE RISK >11.0 HIGH RISK Performed By: #### T SH, T4, FT3, BMP, LIPID, LIVER #### [facility] [address] [address] [address] Brandon Hodges Cholesterol [Mass/Vol] 211 mg/dL Critically high <=200 [facility] Comment on above: Performed By: #### T SH, T4, FT3, BMP, LIPID, LIVER #### [facility] [address] [address] [address] Brandon Hodges Cholesterol in HDL [Mass/Vol] 37 mg/dL Critically low 40-60 [facility] Comment on above: Performed By: #### T SH, T4, FT3, BMP, LIPID, LIVER #### [facility] [address] [place] [address] Dr. Brandon Hodges Cholesterol in LDL [Mass/Vol] 151.4 mg/dL Normal [facility] Comment on above: Performed By: #### T SH, T4, FT3, BMP, LIPID, LIVER #### [facility] [address] [place] [address] Dr. Brandon Hodges Cholesterol.total/Chol esterol in HDL [Mass ratio] 5.7 {ratio} Normal [facility] Comment on above: Performed By: #### T SH, T4, FT3, BMP, LIPID, LIVER #### [facility] [address] [place] [address] Dr. Brandon Hodges HDL NORMAL > or = 60 mg/dl - LOW CARDIOVASCULAR RISK <40 mg/dl - HIGH CARDIOVASCULAR RISK Normal [facility] Comment on above: Performed By: #### T SH, T4, FT3, BMP, LIPID, LIVER #### [facility] [address] [place] [address] Dr. Brandon Hodges LDL CALC NORMAL SEE BELOW Normal [facility] Comment on above: Result Comment: <100 mg/dl OPTIMAL 100 - 129 mg/dl NEAR OR ABOVE OPTIMAL 130 - 159 mg/dl BORDERLINE HIGH 160 - 189 mg/dl HIGH >190 mg/dl VERY HIGH Performed By: #### T SH, T4, FT3, BMP, LIPID, LIVER #### [facility] [address] [place] [address] Dr. Brandon Hodges Triglyceride [Mass/Vol] 113 mg/dL Normal <=150 [facility] Comment on above: Performed By: #### T SH, T4, FT3, BMP, LIPID, LIVER #### [facility] [address] [place] [address] Dr. Brandon Hodges VLDL CALC 22.6 mg/dL Normal [facility] Comment on above: Performed By: #### T SH, T4, FT3, BMP, LIPID, LIVER #### [facility] [address] [place] [address] Dr. Brandon Hodges PROF 14(COMP METB)on 022 Albumin [Mass/Vol] 3.8 g/dL Normal 3.4-5.0 [facility] Comment on above: Performed By: #### T SH, T4, FT3, BMP, LIPID, LIVER #### [facility] [address] [place] [address] Dr. Brandon Hodges Albumin/Globulin [Mass ratio] 1.2 {ratio} Normal [facility] Comment on above: Performed By: #### T SH, T4, FT3, BMP, LIPID, LIVER #### [facility] [address] [place] [address] Dr. Brandon Hodges ALP [Catalytic activity/Vol] 75 U/L Normal 46-116 [facility] Comment on above: Performed By: #### T SH, T4, FT3, BMP, LIPID, LIVER #### [facility] [address] [place] [address] Dr. Brandon Hodges ALT [Catalytic activity/Vol] 26 U/L Normal 14-59 [facility] Comment on above: Performed By: #### T SH, T4, FT3, BMP, LIPID, LIVER #### [facility] [address] [place] [address] Dr. Brandon Hodges Anion gap [Moles/Vol] 10.2 mmol/L Normal [facility] Comment on above: Performed By: #### T SH, T4, FT3, BMP, LIPID, LIVER #### [facility] [address] [place] [address] Dr. Brandon Hodges AST [Catalytic activity/Vol] 10 U/L Critically low 15-37 [facility] Comment on above: Performed By: #### T SH, T4, FT3, BMP, LIPID, LIVER #### [facility] [address] [place] [address] Dr. Brandon Hodges Bilirubin [Mass/Vol] 0.4 mg/dL Normal 0.2-1.0 [facility] Comment on above: Performed By: #### T SH, T4, FT3, BMP, LIPID, LIVER #### [facility] [address] [place] [address] Dr. Brandon Hodges Calcium [Mass/Vol] 8.3 mg/dL Critically low 8.5-10.1 [facility] Comment on above: Performed By: #### T SH, T4, FT3, BMP, LIPID, LIVER #### [facility] [address] [place] [address] Dr. Brandon Hodges Chloride [Moles/Vol] 103 mmol/L Normal 98-107 [facility] Comment on above: Performed By: #### T SH, T4, FT3, BMP, LIPID, LIVER #### [facility] [address] [place] [address] Dr. Brandon Hodges CO2 [Moles/Vol] 28.8 mmol/L Normal 21.0-32.0 [facility] Comment on above: Performed By: #### T SH, T4, FT3, BMP, LIPID, LIVER #### [facility] [address] [place] [address] Dr. Brandon Hodges Creatinine [Mass/Vol] 0.81 mg/dL Normal 0.55-1.02 [facility] Comment on above: Performed By: #### T SH, T4, FT3, BMP, LIPID, LIVER #### [facility] [address] [place] [address] Dr. Brandon Hodges EGFR-AF PARAGUAYAN >60 Normal >=60 [facility] Comment on above: Performed By: #### T SH, T4, FT3, BMP, LIPID, LIVER #### [facility] [address] [address] [address] Brandon Hodges EGFR-NON AF PARAGUAYAN >60 Normal >=60 [facility] Comment on above: Performed By: #### T SH, T4, FT3, BMP, LIPID, LIVER #### [facility] [address] [place] [address] Dr. Brandon Hodges Globulin (S) [Mass/Vol] 3.1 g/dL Normal [facility] Comment on above: Performed By: #### T SH, T4, FT3, BMP, LIPID, LIVER #### [facility] [address] [place] [address] Dr. Brandon Hodges Glucose [Mass/Vol] 95 mg/dL Normal 74-106 [facility] Comment on above: Performed By: #### T SH, T4, FT3, BMP, LIPID, LIVER #### [facility] [address] [place] [address] Dr. Brandon Hodges Potassium [Moles/Vol] 3.9 mmol/L Normal 3.5-5.1 [facility] Comment on above: Performed By: #### T SH, T4, FT3, BMP, LIPID, LIVER #### [facility] [address] [place] [address] Dr. Brandon Hodges Protein [Mass/Vol] 6.9 g/dL Normal 6.1-8.2 [facility] Comment on above: Performed By: #### T SH, T4, FT3, BMP, LIPID, LIVER #### [facility] [address] [place] [address] Dr. Brandon Hodges Sodium [Moles/Vol] 138 mmol/L Normal 136-145 [facility] Comment on above: Performed By: #### T SH, T4, FT3, BMP, LIPID, LIVER #### [facility] [address] [place] [address] Dr. Brandon Hodges Urea nitrogen [Mass/Vol] 20.0 mg/dL Critically high 7.0-18.0 [facility] Comment on above: Performed By: #### T SH, T4, FT3, BMP, LIPID, LIVER #### [facility] [address] [place] [address] Dr. Brandon Hodges Urea nitrogen/Creatinine [Mass ratio] 24.7 mg/mg Normal [facility] Comment on above: Performed By: #### T SH, T4, FT3, BMP, LIPID, LIVER #### [facility] [address] [place] [address] Dr. Brandon Hodges [facility] SED RATE <1 Normal <=20 [facility] Comment on above: Performed By: #### B MP #### [facility] [address] [place] [address] Dr. Brandon Hodges TSHon 06-15-2021 TSH 1.006 uIU/mL Normal 0.470-4.680 [facility] Comment on above: Performed By: #### T SH, T4, FT3, BMP, LIPID, LIVER #### [facility] [address] [place] [address] Dr. Brandon Hodges TSH RANGE SEE BELOW Normal [facility] Comment on above: Result Comment: <0.3 4 UIU/ml HYPERTHYROID 0.34-5.60 UIU/ml EUTHYROID >5.60 UIU/ml HYPOTHYROID Performed By: #### T SH, T4, FT3, BMP, LIPID, LIVER #### [facility] [address] [place] [address] Dr. Brandon Hodges URIC ACID SERUMon 06-15-2021 Urate [Mass/Vol] 4.2 mg/dL Normal 2.5-6.2 [facility] Comment on above: Performed By: #### T SH, T4, FT3, BMP, LIPID, LIVER #### [facility] [address] [place] [address] Dr. Brandon Hodges VITAMIN D 25 OHon 06-15-2021 VIT D 25-OH 47.6 ng/mL Normal [facility] Comment on above: Performed By: #### B MP #### [facility] [address] [place] [address] Dr. Brandon Hodges VIT D RANGES SEE BELOW Normal [facility] Comment on above: Result Comment: <20 ng/mL Vit D deficient 20 - <30 ng/mL Vit D insufficient 30 - 100 ng/mL Vit D sufficient >100 ng/mL Potential Toxicity Performed By: #### B #### [facility] [address] [place] [address] Dr. Brandon Hodges XR KNEE DIEGO 3 Von 06-14-2021 XR KNEE DIEGO 3 V EXAMINATION: XR KNEE DIEGO 3 V HISTORY: Pain of right knee joint COMPARISON: No relevant comparison available. FINDINGS: RIGHT FINDINGS: BONES: Normal. No significant arthropathy or acute abnormality. SOFT TISSUES: Negative. No visible soft tissue swelling. OTHER: Negative. LEFT FINDINGS: BONES: Normal. No significant arthropathy or acute abnormality. SOFT TISSUES: Negative. No visible soft tissue swelling. OTHER: Negative. IMPRESSION: RIGHT CONCLUSION: No acute abnormality LEFT CONCLUSION: No acute abnormality Electronically authenticated by: DOUGLAS SOLANO Date: 2021-06-14 13:35 Normal [facility] Vital Signs Date Time Vital Sign Value Performing Clinician Debra tolentino 09-23-2023 13:00-0400 Diastolic blood pressure 85 mm[Hg] Boby Ballesterose [facility] 09-23-2023 13:00-0400 Heart rate 69 /min Boby Ballesterose [facility] 09-23-2023 13:00-0400 Mean blood pressure 99 mm[Hg] Boby Ballesterose [facility] 09-23-2023 13:00-0400 Respiratory rate 16 /min Boby Cevallos [facility] 09-23-2023 13:00-0400 SaO2% (BldA) [Mass fraction] 98 % Boby Ballesterose [facility] 09-23-2023 13:00-0400 Systolic blood pressure 127 mm[Hg] Boby Ballesterose [facility] 09-23-2023 12:00-0400 Diastolic blood pressure 82 mm[Hg] Boby Ballesterose [facility] 09-23-2023 12:00-0400 Heart rate 68 /min Boby Ballesterose [facility] 09-23-2023 12:00-0400 Mean blood pressure 94 mm[Hg] Boby Ballesterose [facility] 09-23-2023 12:00-0400 SaO2% (BldA) [Mass fraction] 96 % Boby Ballesterose [facility] 09-23-2023 12:00-0400 Systolic blood pressure 119 mm[Hg] Boby Ballesterose [facility] 09-23-2023 11:05-0400 gluc 89 mg/dL Boby Ballesterose [facility] 09-23-2023 11:05-0400 gluc Boby Ballesterose [facility] 09-23-2023 10:59-0400 Body temperature 98.6 [degF] Boby Ballesterose [facility] 09-23-2023 10:59-0400 Diastolic blood pressure 96 mm[Hg] oBby Ballesterose [facility] 09-23-2023 10:59-0400 Heart rate 84 /min Boby Ballesterose [facility] 09-23-2023 10:59-0400 Respiratory rate 18 /min Boby Ballesterose [facility] 09-23-2023 10:59-0400 SaO2% (BldA) [Mass fraction] 99 % Boby Ballesterose [facility] 09-23-2023 10:59-0400 Systolic blood pressure 140 mm[Hg] Boby Ballesterose [facility] 01-20-2023 17:00-0500 Body height 176.53 cm Tika Otero Other [email or web address] Other 01-20-2023 17:00-0500 Body mass index (BMI) [Ratio] 33.85 kg/m2 Tika Otero Other [email or web address] Other 01-20-2023 17:00-0500 Body temperature 98 [degF] Tika Otero Other [email or web address] Other 01-20-2023 17:00-0500 Body weight 105.51 kg Tika Otero Other [email or web address] Other 01-20-2023 17:00-0500 Respiratory rate 18 /min Tika Otero Other [email or web address] Other 01-20-2023 17:00-0500 SaO2% (BldA) [Mass fraction] 99 % Tika Otero Other [email or web address] Other 06-11-2022 15:50-0400 Body height 176.53 cm Elise Stone Other [email or web address] Other 06-11-2022 15:50-0400 Body mass index (BMI) [Ratio] 36.39 kg/m2 Elise Stone Other [email or web address] Other 06-11-2022 15:50-0400 Body temperature 97.3 [degF] Elise Stone Other [email or web address] Other 06-11-2022 15:50-0400 Body weight 113.4 kg Elise Stone Other [email or web address] Other 06-11-2022 15:50-0400 Respiratory rate 18 /min Elise Stone Other [facility] Other 06-11-2022 15:50-0400 SaO2% (BldA) [Mass fraction] 99 % Elise Stone Other [facility] Other 02-28-2022 15:11-0500 Blood Pressure Location Juancarlos Christofferson [facility] 02-28-2022 15:11-0500 Diastolic blood pressure 80 mm[Hg] Juancarlos Christofferson [facility] 02-28-2022 15:11-0500 Heart rate 84 /min Juancarlos Christofferson [facility] 02-28-2022 15:11-0500 Respiratory rate 18 /min Juancarlos Christofferson [facility] 02-28-2022 15:11-0500 SaO2% (BldA) [Mass fraction] 96 % Juancarlos Christofferson [facility] 02-28-2022 15:11-0500 Systolic blood pressure 140 mm[Hg] Juancarlos Christofferson [facility] 11-19-2021 15:13-0400 Blood Pressure Location Juancarlos Christofferson [facility] 11-19-2021 15:13-0400 Diastolic blood pressure 75 mm[Hg] Juancarlos Christofferson [facility] 11-19-2021 15:13-0400 Heart rate 86 /min Juancarlos Christofferson [facility] 11-19-2021 15:13-0400 Respiratory rate 18 /min Juancarlos Christofferson [facility] 11-19-2021 15:13-0400 SaO2% (BldA) [Mass fraction] 96 % Juancarlos Christofferson [facility] 11-19-2021 15:13-0400 Systolic blood pressure 126 mm[Hg] Juancarlos Giraldo [facility] Encounters Encounter Date Encounter Type Care Provider Facility Start: 09-25-2023 End: 09-25-2023 ambulatory SUNNI MATHEW Not Available Start: 09-24-2023 End: 09-24-2023 ambulatory YESICA AICHHOLZ Not Available Start: 09-23-2023 End: 09-23-2023 Emergency department patient visit Boby Cevallos [facility] Start: 08-05-2023 End: 08-05-2023 ambulatory YESICA AICHHOLZ Not Available Start: 05-27-2023 End: 05-27-2023 ambulatory ZEESHAN BENSON Not Available Start: 04-29-2023 End: 04-29-2023 ambulatory YESICA AICHHOLZ Not Available Start: 01-20-2023 End: 01-20-2023 ambulatory Tika Otero Other [email or web address] Other Start: 01-20-2023 Office outpatient vi sit 15 minutes Tika Otero [facility] Start: 06-28-2022 End: 06-28-2022 ambulatory Sageshruthi Mendozagh Facility:[facility] Start: 06-28-2022 End: 06-28-2022 ambulatory Yesica J Aichholz Work Phone: [facility] Work Phone: Start: 06-28-2022 End: 06-28-2022 Discharged Recurring Yesica Aichholz Work Phone: [facility] Work Phone: Start: 06-11-2022 End: 06-11-2022 ambulatory Elise Stone Other [email or web address] Other Start: 06-11-2022 Office outpatient ne w 30 minutes Elise Stone [facility] Start: 05-18-2022 End: 05-19-2022 ambulatory VANCE NICKERSON Facility:[facility] Start: 04-19-2022 End: 04-20-2022 ambulatory [employer] YESICA NICKERSON Facility:[facility] Start: 02-28-2022 End: 02-28-2022 Patient encounter procedure Juancarlos Giraldo [facility] Start: 01-11-2022 End: 01-12-2022 ambulatory VANCE NICKERSON Facility:[facility] Start: 11-29-2021 End: 03-03-2022 Preprocedural examination done Zeeshan Benson [facility] Start: 11-29-2021 End: 03-03-2022 Recurring Zeeshan Benson [facility] Start: 11-19-2021 End: 11-19-2021 Patient encounter procedure Juancarlos Giraldo [facility] Start: 08-17-2021 End: 08-17-2021 Patient encounter procedure Zeeshan Benson [facility] Start: 06-15-2021 End: 06-16-2021 ambulatory VANCE NICKERSON Facility:[facility] Start: 06-14-2021 End: 06-15-2021 ambulatory VANCE NICKERSON Facility:[facility] Payers Date Payer Category Payer Self-pay [id number] 1975 Unknown [id number] 1975 Unknown [id number] 1975 Unknown [id number] 1975 Unknown [id number] 1975 Unknown [id number] 1975 Unknown [id number] 1975 Unknown [id number] [id number] 1975 Unknown [id number] [id number] 1975 Unknown [id number] [id number] 1975 Unknown [id number] 1975 Unknown [id number] [id number] 1975 Unknown [id number] [id number] 1975 Unknown [id number] 1959 Unknown [id number] Private Health Insurance [employer] [id number] Unknown [id number] Social History Date Type Detail Facility Tobacco smoking status No Smokin g Status Entered [facility] Sex Assigned At Female [facility] Start: 02-28-2022 Tobacco smoking status Light t obacco smoker (finding) [facility] Start: 1975 Sex Assigned At Female F [facility] Functional Status Date Assessment Result Facility 09-23-2023 Functional Status N/A [facility] 02-28-2022 Functional Status No [facility] 11-19-2021 Functional Status N/A [facility] Clinical Notes 06-11-2022 to 09-23-2023 Note Date & Type Note Facility 09-23-2023 Hospital Discharg e instructions Patient Education 09/23/2023 13:01:25 Dizziness Dizziness Dizziness is a common problem. It is a feeling of unsteadiness or light-headedness. You may feel like you are about to faint. Dizziness can lead to injury if you stumble or fall. Anyone can become dizzy, but dizziness is more common in older adults. This condition can be caused by a number of things, including medicines, dehydration, or illness. Follow these instructions at home: Eating and drinking Drink enough fluid to keep your urine pale yellow. This helps to keep you from becoming dehydrated. Try to drink more clear fluids, such as water. Do not drink alcohol. Limit your caffeine intake if told to do so by your health care provider. Check ingredients and nutrition facts to see if a food or beverage contains caffeine. Limit your salt (sodium) intake if told to do so by your health care provider. Check ingredients and nutrition facts to see if a food or beverage contains sodium. Activity Avoid making quick movements. ?Rise slowly from chairs and steady yourself until you feel okay. ?In the morning, first sit up on the side of the bed. When you feel okay, stand slowly while you hold onto something until you know that your balance is good. If you need to motor carrier inspector one place for a long time, move your legs often. Tighten and relax the muscles in your legs while you are standing. Do not drive or use machinery if you feel dizzy. Avoid bending down if you feel dizzy. Place items in your home so that they are easy for you to reach without leaning over. Lifestyle Do not use any products that contain nicotine or tobacco. These products include cigarettes, chewing tobacco, and vaping devices, such as e-cigarettes. If you need help quitting, ask your health care provider. Try to reduce your stress level by using methods such as yoga or meditation. Talk with your health care provider if you need help to manage your stress. General instructions Watch your dizziness for any changes. Take iofm-ayl-ryvysys and prescription medicines only as told by your health care provider. Talk with your health care provider if you think that your dizziness is caused by a medicine that you are taking. Tell a friend or a family member that you are feeling dizzy. If he or she notices any changes in your behavior, have this person call your health care provider. Keep all follow-up visits. This is important. Contact a health care provider if: Your dizziness does not go away or you have new symptoms. Your dizziness or light-headedness gets worse. You feel nauseous. You have reduced hearing. You have a fever. You have neck pain or a stiff neck. Your dizziness leads to an injury or a fall. Get help right away if: You vomit or have diarrhea and are unable to eat or drink anything. You have problems talking, walking, swallowing, or using your arms, hands, or legs. You feel generally weak. You have any bleeding. You are not thinking clearly or you have trouble forming sentences. It may take a friend or family member to notice this. You have chest pain, abdominal pain, shortness of breath, or sweating. Your vision changes or you develop a severe headache. These symptoms may represent a serious problem that is an emergency. Do not wait to see if the symptoms will go away. Get medical help right away. Call your local emergency services (911 in the [place] Do not drive yourself to the hospital. Summary Dizziness is a feeling of unsteadiness or light-headedness. This condition can be caused by a number of things, including medicines, dehydration, or illness. Anyone can become dizzy, but dizziness is more common in older adults. Drink enough fluid to keep your urine pale yellow. Do not drink alcohol. Avoid making quick movements if you feel dizzy. Monitor your dizziness for any changes. This information is not intended to replace advice given to you by your health care provider. Make sure you discuss any questions you have with your health care provider. Document Revised: 01/08/2021 Document Reviewed: 01/08/2021 [employer] Patient Education 2022 [employer]. Follow Up Care 09/23/2023 10:55:56 With:YESICA NICKERSON Address: [address] [place] [phone] Business (1) When:09/26/2023 12:52:48 [facility] 09-23-2023 Note ED Patient Education Note Neurology Dizziness Dizziness is a common problem. It is a feeling of unsteadiness or light-headedness. You may feel like you are about to faint. Dizziness can lead to injury if you stumble or fall. Anyone can become dizzy, but dizziness is more common in older adults. This condition can be caused by a number of things, including medicines, dehydration, or illness. Follow these instructions at home: Eating and drinking ? Drink enough fluid to keep your urine pale yellow. This helps to keep you from becoming dehydrated. Try to drink more clear fluids, such as water. ? Do not drink alcohol. ? Limit your caffeine intake if told to do so by your health care provider. Check ingredients and nutrition facts to see if a food or beverage contains caffeine. ? Limit your salt (sodium) intake if told to do so by your health care provider. Check ingredients and nutrition facts to see if a food or beverage contains sodium. Activity ? Avoid making quick movements. ? Rise slowly from chairs and steady yourself until you feel okay. ? In the morning, first sit up on the side of the bed. When you feel okay, stand slowly while you hold onto something until you know that your balance is good. ? If you need to motor carrier inspector one place for a long time, move your legs often. Tighten and relax the muscles in your legs while you are standing. ? Do not drive or use machinery if you feel dizzy. ? Avoid bending down if you feel dizzy. Place items in your home so that they are easy for you to reach without leaning over. Lifestyle ? Do not use any products that contain nicotine or tobacco. These products include cigarettes, chewing tobacco, and vaping devices, such as e-cigarettes. If you need help quitting, ask your health care provider. ? Try to reduce your stress level by using methods such as yoga or meditation. Talk with your health care provider if you need help to manage your stress. General instructions ? Watch your dizziness for any changes. ? Take okcv-idg-gtkoaop and prescription medicines only as told by your health care provider. Talk with your health care provider if you think that your dizziness is caused by a medicine that you are taking. ? Tell a friend or a family member that you are feeling dizzy. If he or she notices any changes in your behavior, have this person call your health care provider. ? Keep all follow-up visits. This is important. Contact a health care provider if: ? Your dizziness does not go away or you have new symptoms. ? Your dizziness or light-headedness gets worse. ? You feel nauseous. ? You have reduced hearing. ? You have a fever. ? You have neck pain or a stiff neck. ? Your dizziness leads to an injury or a fall. Get help right away if: ? You vomit or have diarrhea and are unable to eat or drink anything. ? You have problems talking, walking, swallowing, or using your arms, hands, or legs. ? You feel generally weak. ? You have any bleeding. ? You are not thinking clearly or you have trouble forming sentences. It may take a friend or family member to notice this. ? You have chest pain, abdominal pain, shortness of breath, or sweating. ? Your vision changes or you develop a severe headache. These symptoms may represent a serious problem that is an emergency. Do not wait to see if the symptoms will go away. Get medical help right away. Call your local emergency services (911 in the [place] Do not drive yourself to the hospital. Summary ? Dizziness is a feeling of unsteadiness or light-headedness. This condition can be caused by a number of things, including medicines, dehydration, or illness. ? Anyone can become dizzy, but dizziness is more common in older adults. ? Drink enough fluid to keep your urine pale yellow. Do not drink alcohol. ? Avoid making quick movements if you feel dizzy. Monitor your dizziness for any changes. This information is not intended to replace advice given to you by your health care provider. Make sure you discuss any questions you have with your health care provider. Document Revised: 01/08/2021 Document Reviewed: 01/08/2021 [employer] Patient Education ? 2022 [employer] [facility] 01-20-2023 Evaluation note Encounter Date Diagnosis Assessment Notes Jan, Suspected COVID-19 virus infection (ICD-10 - Z20.822) Jan, COVID-19 (ICD-10 - U07.1) Discharge Instructions for COVID-19 (Suspected or Confirmed ) material was printed Drink plenty fluids, get plenty of rest. Take Tylenol or Motrin as needed for aches pains or fevers. Continue home medications as prescribed. You must quarantine for 5 days after the onset of your symptoms of COVID. Follow-up with your family physician if no improvement in 2 to 3 days [email or web address] Other 04-25-2023 Evaluation note* Encounter Date Diagnosis Assessment Notes Treatment Notes Treatment Clinical Notes May, Sore throat (ICD-10 - J02.9) May, Seasonal allergic rhinitis, unspecified trigger (ICD-10 - J30.2) Advised patient that rapid strep test was negative today in office. Discussed diagnosis with patient. Advised that physical exam and duration of symptoms are consistent with allergic rhinitis. Encouraged use of OTC Zyrtec/Claritin and Flonase for relief of symptoms. Encouraged supportive care as directed Tylenol/Motrin as needed, coolmist humidification, throat lozenges, salt water gargles. Patient to follow-up with PCP if symptoms do not improve or worsen. Immediate evaluation in ER for signs/symptoms as discussed. Patient verbalizes understanding and is agreeable with treatment plan. [email or web address] Other Evaluation + Plan note No data available for this section [facility] Future Appointments Appointment Date:02/28/2022 03:15:00 PM Scheduled Provider:Enzo LEE, Juancarlos Kumar Location[facility] Appointment Type:Cardiology Follow Up (FT) [facility] note[facility] assessment information available [facility] Work Phone: History general Narrative - Reported* Type Description Date Medical History Anxiety Medical History History of muscle spasm Medical History acid reflux Surgical History tonsillectomy Surgical History hernia Surgical History cholecystectomy Surgical History oophorectomy Surgical History Tummy Tuck Surgical History lymph node resection left axill vianney Surgical History hysterectomy 04/2019 Surgical History knee surgery 10/2021 Hospitalization History see above [email or web address] Other History general Narrative - Reported* Type Description Date Medical History Anxiety Medical History History of muscle spasm Medical History acid reflux Medical History high cholesterol Surgical History tonsillectomy Surgical History hernia Surgical History cholecystectomy Surgical History oophorectomy Surgical History Tummy Tuck Surgical History lymph node resection left axill vianney Surgical History hysterectomy 04/2019 Surgical History knee surgery 10/2021 Hospitalization History see above [email or web address] Other Hospital Discharge instructions No data available for this section [facility] No data available for this section [facility] Summary Purpose Family History No Family History Records FoundNo Family History Records FoundNo Family History Records Found No data available for this section No Family History Records FoundNo Family History Records FoundNo Family History Records FoundNo Family History Records FoundNo Family History Records FoundNo Family History Records FoundNo Family History Records FoundNo Family History Records FoundNo Family History Records FoundNo Family History Records Found Advance Directives No Advanced Directives Records Found Advance Directive Response Recorded Date/ Time Advance Directives No March 8:22pm Chief Complaint and Reason for Visit Chief Complaint Thyroid Additional Source Comments INFORMATION SOURCE (unrecogn ized section and content) DATE CREATED AUTHOR 08/02/2021 [facility] dical Specialist DATE CREATED AUTHOR AUTHOR'S ORGANIZ ATION 05/25/2022 [facility] DATE CREATED AUTHOR AUTHOR'S ORGANIZ ATION 07/01/2022 [facility] DATE CREATED AUTHOR AUTHOR'S ORGANIZ ATION 09/25/2023 [facility] DATE CREATED AUTHOR AUTHOR'S ORGANIZ ATION 09/26/2023 [facility] dical Specialists [facility] DATE CREATED AUTHOR AUTHOR'S ORGANIZ ATION 09/30/2023 [facility] Care Team (unrecognized sect ion and content) Team Status: Active Member Role Status Dates Yesica Nickerson Primary Care Provider Active Team Status: Inactive Member Role Status Dates Gopal Potter MD Attending Provider Active Yesica Nickerson Primary Care Provider Active REASON FOR VISIT (unrecogniz ed section and content) SORE THROAT, SINUS CONGESTIO N, COUGHCOVID TEST, TESTED POSITIVE AT HOME, NEEDS TO TEST AGAIN TO SEE WHEN SHE CAN GO BACK TO WORK Goals (unrecognized section and content) Goals may be documented in a n alternate section FOR RECORDS PERTAINING TO PATIENTS WHO ARE OR HAVE BEEN ENROLLED IN A CHEMICAL DEPENDENCY/SUBSTANCEABUSE PROGRAM, SOME INFORMATION MAY BE OMITTED. This clinical summary was aggregated from multiple sources. Caution should be exercised in using it in the provision of clinical care. This summary normalizes information from multiple sources, and as a consequence, information in this document may materially change the coding, format and clinical context of patient data. In addition, data may be omitted in some cases. CLINICAL DECISIONS SHOULD BE BASED ON THE PRIMARY CLINICAL RECORDS. [facility] provides no warranty or guarantee of the accuracy or completeness of information in this document.
[2023-10-10 07:52] LABS: Basophils Percent Auto 0.3 % (0.2-2.0); Eosinophils Absolute Auto 0.1 10^3/uL (0.0-0.7); Eosinophils Percent Auto 0.9 % (0.9-7.0); Hemoglobin 14.2 g/dL (12.0-16.0); Immature Granulocytes Abs Auto 0.01 10^3/uL (0.00-0.03); Immature Granulocytes Pct Auto 0.2 % (0.0-0.5); Lymphocytes Absolute Auto 1.9 10^3/uL (1.2-3.8); Lymphocytes Percent Auto 28.9 % (20.5-60.0); Mean Corpuscular HGB Conc 33.8 g/dL (29.9-35.2); Mean Corpuscular Hemoglobin 29.9 pg (26.7-34.0); Mean Corpuscular Volume 88.4 fL (81.0-99.0); Mean Platelet Volume 10.5 fL (9.5-13.5); Monocytes Absolute Auto 0.6 10^3/uL (0.3-0.8); Monocytes Percent Auto 8.5 % (1.7-12.0); Neutrophils Percent Auto 61.2 % (43.0-75.0); Platelet Count 213 10^3/uL (150-450); Red Blood Count 4.75 10^6/uL (4.20-5.40); Red Cell Distribution Width 12.2 % (11.0-15.0); White Blood Count 6.5 10^3/uL (4.0-11.0)
[2023-10-10 07:54] LABS: Bilirubin Urine NEGATIVE (NEGATIVE); Blood Urine NEGATIVE (NEGATIVE); Clarity Urine SL CLOUDY (CLEAR); Color Urine YELLOW (YELLOW); Glucose Urine UA NEGATIVE (NEGATIVE); Ketones Urine NEGATIVE (NEGATIVE); Leukocyte Esterase Urine NEGATIVE (NEGATIVE); Nitrite Urine NEGATIVE (NEGATIVE); Protein Urine NEGATIVE (NEG/TRACE); Specific Gravity Urine >=1.030 (1.005-1.025)
[2023-10-10 08:00] LABS: Urine Microscopic Indicated NO
[2023-10-10 08:02] LABS: Creatinine Urine Random 322.15 mg/dL (20.00-300.00); Microalbum Creatinine Ratio Ur 4.3 mg/g (0.0-29.9); Microalbumin Urine Random 1.4 mg/dL (<=30.0)
[2023-10-10 08:23] LABS: Alanine Aminotransferase 30 U/L (14-59); Albumin Globulin Ratio 1.3; Albumin Level 3.7 g/dL (3.4-5.0); Alkaline Phosphatase 53 U/L (46-116); Anion Gap 10.1; Aspartate Amino Transferase 13 U/L (15-37); Bilirubin Total 0.4 mg/dL (0.2-1.0); Calcium 9.1 mg/dL (8.5-10.1); Carbon Dioxide 32.2 mmol/L (21.0-32.0); Chloride 103 mmol/L (98-107); Chol HDL Ratio 3.4; Cholesterol 174 mg/dL (<=200); Estimated GFR (African America >60 (>=60); Estimated GFR (Non-African Ame >60 (>=60); Globulin 2.9 g/dL; Glucose 98 mg/dL (74-106); HDL Cholesterol 51 mg/dL (40-60); Potassium 3.3 mmol/L (3.5-5.1); Sodium 142 mmol/L (136-145); Total Protein 6.6 g/dL (6.4-8.2); Triglycerides 65 mg/dL (<=150)
== END 2023-10-10 07:33 | disposition home or self-care (01) ==
LOC: LAB 07:32
PROVIDERS: PCP Nurse Practitioner; Visit Provider Nurse Practitioner
DX: Z78.9 Other specified health status (principal)
CPT/HCPCS: 36415; 80053; 80061; 81003; 82043; 82570; 85025

== ENCOUNTER 2023-10-31 10:46 | Outpatient (OUT) | payer BC, SELFPAY ==
[2023-10-31 11:27] LABS: Erythrocyte Sedimentation Rate 12 mm/hr (<=20)
[2023-10-31 12:25] LABS: Free T4 0.89 ng/dL (0.76-1.46)
[2023-10-31 12:29] LABS: BUN Creatinine Ratio 28.4; C Reactive Protein <0.50 mg/dL (<=0.50); Calcium 8.6 mg/dL (8.5-10.1); Carbon Dioxide 28.9 mmol/L (21.0-32.0); Chloride 105 mmol/L (98-107); Estimated GFR (African America >60 (>=60); Estimated GFR (Non-African Ame >60 (>=60); Glucose 74 mg/dL (74-106); Magnesium 1.9 mg/dL (1.8-2.4); Potassium 3.9 mmol/L (3.5-5.1); Sodium 139 mmol/L (136-145)
[2023-11-01 04:10] LABS: DHEA-Sulfate 82.5 ug/dL (41.2-243.7); Estradiol 11.1 pg/mL (.); Progesterone 0.1 ng/mL (.)
[2023-11-03 14:08] LABS: Antinuclear Antibodies, IFA Positive (.)
[2023-11-03 16:09] LABS: Thyroglobulin Antibody <1.0 IU/mL (0.0-0.9); Thyroid Peroxidase (TPO) Ab <9 IU/mL (0-34)
[2023-11-05 17:11] LABS: Estrogens, Total 103 pg/mL (.)
[2023-11-06 03:07] LABS: Free Testosterone(Direct) <0.2 pg/mL (0.0-4.2); Testosterone 3 ng/dL (4-50)
== END 2023-10-31 10:47 | disposition home or self-care (01) ==
LOC: LAB 10:47
PROVIDERS: PCP Nurse Practitioner; Visit Provider Nurse Practitioner
DX: E87.6 Hypokalemia (principal); R53.83 Other fatigue; N95.1 Menopausal and female climacteric states
CPT/HCPCS: 36415; 80048; 82627; 82670; 82672; 83735; 84140; 84144; 84402; 84403; 84439; 84443; 85652; 86038; 86140; 86376; 86800

== ENCOUNTER 2023-11-27 07:52 | Outpatient (OUT) | payer BC, SELFPAY ==
--- NOTE | 2023-11-27 07:27 | V.VEINS.HP ---
Vital Signs 11/27/23 09:03 BP 132/70 BP Location Left Brachial BP Position Sitting BP Cuff Size Adult BP Source Manual Cuff Respiration 16 Pulse 72 Pulse Source Monitor Pulse Oximetry (%) 100 Oxygen Delivery Method Room Air Comment The patient's blood pressure is elevated. Varicose Veins Patient in this day for EVLT of right GSV. Ben Zeng MD personally performed the services described in this documentation, as scribed by Kelis Sal RN in my presence and it is both accurate and complete. Kelsi Zeng RN, am scribing for, and in the presence of, Dr. Ben Hollingsworth and in the presence of the patient. thigh: bilateral, knee: bilateral, calf: bilateral, ankle: bilateral and simmons: bilateral aching, cramping, sharp and intermittent 8 1 year Worsened in recent months: Yes other (denies) other (daily anti-inflammatory) Reports muscle spasms of leg, limb pain and leg edema (pitting) History of lower extremity trauma: No Superficial thrombophlebitis: No Family history of varicose veins: yes (mother and father) Has patient had previous lower extremity venous surgery: No Patient has previously received the following treatment(s) for lower extremity varicose veins: Reports none Does patient have a history of : yes (grav 3 para 2) Does patient intend to have future pregnancies: no Has patient had lower extremity venous scan with relux testing: Yes Support hose used: Yes (6 months) Prescribed by provider: No Problems walking or doing physical activity: No Do you walk much: Yes Do you stand much: Yes Medication compliance: good Large amounts of Vitamin K: No Review of Systems ROS Narrative Ben Zeng MD personally performed the services described in this documentation, as scribed by Kelsi Sal RN in my presence and it is both accurate and complete. Kelsi Zeng RN, am scribing for, and in the presence of, Dr. Ben Hollingsworth and in the presence of the patient. Status of ROS 10 or more systems reviewed and unremarkable except as noted in history and below Cardiovascular Reports: edema; Denies: swelling of feet/ankles Musculoskeletal Reports: extremity pain, extremity swelling, joint pain, joint swelling, muscle cramps and muscle weakness Integumentary/Breast Reports: skin pain, skin tenderness and skin swelling [facility] Medical History (Updated 11/27/23 @ 07:32 by Kelsi Sal, RN) Phlebitis and thrombophlebitis of superficial vessels of right lower extremity ?I80.01 - Phlebitis and thrombophlebitis of superficial vessels of right lower extremity (ICD-10) Lymphoma of lymph nodes of axilla ?C85.94 - Non-Hodgkin lymphoma, unspecified, lymph nodes of axilla and upper limb (ICD-10) Hemorrhage following tonsillectomy and adenoidectomy ?J95.830 - Postprocedural hemorrhage of a respiratory system organ or structure following a respiratory system procedure (ICD-10) Encounter for cholecystectomy ?Z76.89 - Persons encountering health services in other specified circumstances (ICD-10) Lymphedema ?I89.0 - Lymphedema, not elsewhere classified (ICD-10) Migraines ?G43.909 - Migraine, unspecified, not intractable, without status migrainosus (ICD-10) Gastroesophageal reflux ?K21.9 - Gastro-esophageal reflux disease without esophagitis (ICD-10) Varicose veins of bilateral lower extremities with pain ?I83.813 - Varicose veins of bilateral lower extremities with pain (ICD-10) Hypertension ?I10 - Essential (primary) hypertension (ICD-10) Hypercholesteremia ?E78.00 - Pure hypercholesterolemia, unspecified (ICD-10) Endometriosis ?N80.9 - Endometriosis, unspecified (ICD-10) Surgical History (Updated 08/19/23 @ 10:02 by Kelsi Sal RN) H/O hernia repair ?Z98.890 - Other specified postprocedural states (ICD-10) ?Z87.19 - Personal history of other diseases of the digestive system (ICD-10) H/O arthroscopy of knee ?Z98.890 - Other specified postprocedural states (ICD-10) H/O: hysterectomy ?Z90.710 - Acquired absence of both cervix and uterus (ICD-10) Family History (Updated 08/19/23 @ 10:03 by Kelsi Sal, RN) Mother Family history of cancer Varicose veins of bilateral lower extremities with pain Grandmother Family history of diabetes mellitus Father Family history of hypertension Varicose veins of bilateral lower extremities with pain Son Family history of hypertension Grandfather Family history of stroke Social History (Updated 08/19/23 @ 08:47 by Kelsi Sal RN) Within the past year, how often did you have a drink containing alcohol: monthly or less Smoking status: Current every day smoker Do you use any of these nicotine containing products: vaping products Non-prescribed substance use: denies use Meds Home Medications and Allergies Home Medications ?Medication ?Instructions ?Recorded ?Confirmed ?Type alprazolam 0.25 mg tablet (Xanax) 0.25 mg PO PRN 08/19/23 08/19/23 History atorvastatin 10 mg tablet 10 mg PO QPM 08/19/23 08/19/23 History hormonal cream 08/19/23 History hydrochlorothiazide 12.5 mg tablet 25 mg PO DAILY 08/19/23 08/19/23 History meloxicam 15 mg tablet 15 mg PO DAILY 08/19/23 08/19/23 History omeprazole 20 mg capsule,delayed 20 mg PO DAILY 08/19/23 08/19/23 History release Allergies Allergy/AdvReac Type Severity Reaction Status Date / Time rofecoxib (From Vioxx) Allergy Unknown Unknown Unverified 08/19/23 08:53 amoxicillin Allergy rash Unverified 08/19/23 08:53 iodine Allergy Rash Unverified 08/19/23 09:58 methylprednisolone Allergy itching Unverified 08/19/23 10:18 paroxetine (From Paxil) Allergy Unknown Unverified 08/19/23 08:53 sertraline (From Zoloft) Allergy Unknown Unverified 08/19/23 08:53 Exam Narrative Exam Narrative: IBen MD personally performed the services described in this documentation, as scribed by Kelsi Sal RN in my presence and it is both accurate and complete. IKelsi RN, am scribing for, and in the presence of, Dr. Ben Hollingsworth and in the presence of the patient. Constitutional Vital Signs, click to edit/add: Last Vital Signs Pulse 53 L 08/19/23 08:58 Resp 16 08/19/23 08:58 BP 104/72 08/19/23 08:58 Pulse Ox 98 08/19/23 08:58 Documenting provider has reviewed patient's vital signs: yes Common normals: oriented x3 Nutritional appearance: overweight Lymph Lymphatic: no lymphedema noted Cardio Peripheral pulses: posterior tibial pulses present and dorsalis pedis pulses present Extremity General: calf tenderness, edema and other findings Right lower extremity: lower leg Right lower leg: inspection and palpation Left lower extremity: lower leg Left lower leg: inspection and palpation Neuro Common normals: oriented x3 Assessment and Plan Assessment and Plan (1) Varicose veins of bilateral lower extremities with pain: Plan Plan of care: Risks and benefits of the procedure were discussed at length and informed written consent was obtained.? Time-out completed for verification of correct patient, procedure and site.? Staff present during time-out: Kelsi Sal RN,? Ben Hollingsworth MD, Heather Hartley RDMS,RVT. Time Out Time___826____ Patient prepped and procedure performed in usual sterile fashion. Risk of injury related to use of Diode laser and/or laser devices? __AG___ ? Serial number of laser used :? [id number] Control panel self test performed, electrical cords in good condition, floor is dry, basin of water available, fire extinguisher in close proximity_AG__ Polycarbonate goggles available and Laser warning signs outside of doors___AG___ Eye protection provided to patient and staff in room_AG___ Use of laser retardant drapes and dull blackened instruments as directed__AG___ Use of nonflammable prep solutions and use of saline soaked sponges to protect tissues as indicated _AG___ Length 56___ cm Laser operated by ____Dr. Hollingsworth Physician verbal confirmation laser locked in place__AG__ Laser start time (date and time) _11/27/23@0843 Laser stop time(date and time) __11/27/23@0854 Small _8.0___ Average laser use ___3124____Joules Average laser use____391____seconds Pulse continuous ___AG_? Pulse intermittent ___ Amount of Tumescent used ___300___ Evaluated patient for signs and symptoms of electrical injury __AG___ ? Skin clear at insertion site __AG___ Patient tolerated procedure well.? Right leg Coban dressing applied to access site.? Applied Right thigh high leg compression stocking. Will return on 12/03/23 for Right leg limited venous ultrasound and exam. IBen MD personally performed the services described in this documentation, as scribed by Kelsi Sal RN in my presence and it is both accurate and complete. I, Kelsi Sal RN, am scribing for, and in the presence of, Dr. Ben Hollingsworth and in the presence of the patient.
--- NOTE | 2023-11-27 07:31 | W.VEIN ---
Discharge Plan Discharge Disposition: Home, Self-Care Outpatient Diagnostics: VC Facility EST LMTD (Routine) Timeframe: 2 Weeks Facility: [facility] - Location: [facility] Ordered By: Ben Hollingsworth VC EXT Venous RT LMTD (Routine) Timeframe: 2 Weeks Facility: [facility] - Location: [facility] Ordered By: Ben Hollingsworth Follow Up Appointments: 12/02 Patient Instructions: Endovenous Ablation (DC) Print Language: Macedonian Discharge Date/Time: 11/27/23 09:07
--- NOTE | 2023-11-27 07:57 | VEIN_ITS ---
[address] [address] Patient Name: AUDREY MUÑOZ MRN: [id number] date: 1975 Sex: F Assigned Patient Location: Current Patient Location: Accession/Order Number: [id number] Exam Date: 11/27/2023 08:05 Report Date: 11/27/2023 10:11 At the request of: JONATHAN AMS Procedure: VC Endovenous Ablation 1VeinRT EXAMINATION: VC Endovenous Ablation 1VeinRT HISTORY: I83.813 - Varicose veins of bilateral lower extremities w... The risks and benefits of the procedure had been previously discussed, and were rediscussed at length. Informed written consent was obtained. Kelsi Sal RN and Heather Hartley RDMS, RVT assisted. Time out procedure was performed. The right lower extremity was prepared and draped in the usual sterile fashion to allow knee flexion in the sterile field. Duplex ultrasound probe was draped in a sterile cover, sterile transmission gel was used. Venous mapping was performed with the areas of dilation and large tributaries marked. The total length was 56 cm from the entry mid-distal calf to 3 cm below the Saphenofemoral junction. The diameter of the right great saphenous vein ranged from 7.8 mm. A 30 gauge needle and 1% buffered lidocaine was used to anesthetize the entry site. A 4 mm incision was made with a scalpel and the saphenous vein was entered percutaneously under direct ultrasound guidance with a micropuncture set, a single stick was successful in gaining access. A micro-guide wire was inserted and the needle removed. A micro-set including a dilator was inserted over the microwire and the needle and dilator were removed. A guide wire was inserted through the micro-set and guided through the saphenous vein to the saphenofemoral junction. The dilator was removed and an introducer sheath was inserted over the wire until the end of the sheath entered the saphenofemoral junction. The dilator and wire were removed and the 600 micron fiber was introduced and placed and positioned so that it extended beyond the sheath and was 3 cm distal to the saphenofemoral or saphenopopliteal junction. Final position of the fiber was determined by ultrasound guidance and duplex imaging. Tumescent anesthetic was delivered by ultrasound guidance. 300 cc of fluid was delivered along the entire course of the saphenous vein. The solution consisted of 1000 cc of normal saline with 40 mL of 1% lidocaine and 20 mL of sodium bicarbonate. A final positioning check was made. The energy source was turned on by means of the foot pedal and the fiber and sheath were withdrawn. The total number of Joules delivered was 3124. The laser was active for 391 seconds under continuous pulse, average laser use of 8 J. Laser start time: 8:43 AM Laser stop time: 8:54 AM Date: 11/27/2023. A duplex ultrasound revealed compressibility and flow at the saphenofemoral junction immediately after the procedure. Hemostasis at the access site was achieved. The skin incision of the saphenous vein was closed with a 4 x 4. A compression stocking was applied. Postop instructions were given. A follow up appointment was recommended and scheduled. The patient tolerated the procedure well. Electronically authenticated by: JONATHAN MAS Date: 11/27/2023 10:11
--- OUTSIDE RECORDS SUMMARY | 2023-11-27 07:59 | XMS_ITS | CCD ---
Author Organization [facility] Care Team Providers Care Tuna Purse Seiner Name Role Phone YESICA NICKERSON Primary Care Physician AICHHOLZ, SENIOR NATIONAL ACCOUNT MANAGER YESICA Primary Care Unavailable AICHHOLZ, SENIOR NATIONAL ACCOUNT MANAGER YESICA Admitting Unavailable DR DOUGLAS SOLANO V Consulting Unavailable AICHHOLZ, SENIOR NATIONAL ACCOUNT MANAGER YESICA Attending Unavailable AICHHOLZ, SENIOR NATIONAL ACCOUNT MANAGER YESICA Consulting Unavailable AICHHOLZ, SENIOR NATIONAL ACCOUNT MANAGER YESICA Attending Unavailable AICHHOLZ, SENIOR NATIONAL ACCOUNT MANAGER YESICA Consulting Unavailable AICHHOLZ, SENIOR NATIONAL ACCOUNT MANAGER YESICA Primary Care Unavailable AICHHOLZ, SENIOR NATIONAL ACCOUNT MANAGER YESICA Admitting Unavailable AICHHOLZ, SENIOR NATIONAL ACCOUNT MANAGER YESICA Attending Unavailable AICHHOLZ, SENIOR NATIONAL ACCOUNT MANAGER YESICA Consulting Unavailable AICHHOLZ, SENIOR NATIONAL ACCOUNT MANAGER YESICA Primary Care Unavailable AICHHOLZ, SENIOR NATIONAL ACCOUNT MANAGER YESICA Admitting Unavailable AICHHOLZ, SENIOR NATIONAL ACCOUNT MANAGER YESICA Attending Unavailable AICHHOLZ, SENIOR NATIONAL ACCOUNT MANAGER YESICA Consulting Unavailable AICHHOLZ, SENIOR NATIONAL ACCOUNT MANAGER YESICA Primary Care Unavailable AICHHOLZ, SENIOR NATIONAL ACCOUNT MANAGER YESICA Admitting Unavailable DR BEN HOLLINGSWORTH Consulting Unavailable AICHHOLZ, SENIOR NATIONAL ACCOUNT MANAGER YESICA Consulting Unavailable AICHHOLZ, SENIOR NATIONAL ACCOUNT MANAGER YESICA Primary Care Unavailable AICHHOLZ, SENIOR NATIONAL ACCOUNT MANAGER YESICA Admitting Unavailable AICHHOLZ, SENIOR NATIONAL ACCOUNT MANAGER YESICA Attending Unavailable Elise Stone Unavailable MD Gopal Potter Attending Provider [phone] Yesica Nickerson Primary Care Provider [phone] Gopal Potter Attending Unavailable Gopal Potter Admitting Unavailable Yesica Nickerson Primary Care Unavailable Tika Otero Unavailable Boby Cevallos Attending Unavailable Boby Cevallos Attending Unavailable YESICA NICKERSON Attending Unavailable ZEESHAN BENSON Referring Unavailable ZEESHAN BENSON Attending Unavailable YESICA NICKERSON Attending Unavailable YESICA NICKERSON Attending Unavailable SUNNI MATHEW Attending Unavailable YESICA NICKERSON Referring Unavailable NABEEL MENDENHALL Attending Unavailable YESICA NICKERSON Attending Unavailable Allergies Allergy Classification Reported Allergen(s) Allergy Type Date of Onset Reaction(s) Facility (9 sources) Amoxicillin; Translations: [amoxicillin] Drug Allergy 3 Unknown (qualifier value) [facility] (6 sources) Iodine; Translations: [iodine containing compounds] Drug allergy Eruption of skin (disorder) [facility] (7 sources) PARoxetine; Translations: [paroxetine] Drug Allergy 3 Unknown (qualifier value) [facility] (7 sources) Povidone-Iodine; Translations: [povidone iodine topical] Drug Allergy 3 Unknown (qualifier value) [facility] (7 sources) rofecoxib; Translations: [rofecoxib] Drug Allergy 3 Unknown (qualifier value) [facility] (7 sources) Sertraline; Translations: [sertraline] Drug Allergy 3 Unknown (qualifier value) [facility] (1 source) Adhesive agent Drug allergy (disorder) [facility] (4 sources) Iodine Drug Allergy 3 burning sensation, Redness of Skin [facility] (1 source) Latex Drug allergy (disorder) [facility] (2 sources) Cortisone; Translations: [cortisone] Drug Allergy 3 Itching [facility] (1 source) Amoxicillin Drug Allergy 3 [facility] (1 source) Iodine Drug Allergy 3 [facility] (1 source) PARoxetine Drug Allergy 3 [facility] (1 source) Povidone-Iodine Drug Allergy 3 [facility] (1 source) rofecoxib Drug Allergy 3 [facility] (1 source) Sertraline Drug Allergy 3 [facility] Medications Current Medications Medication Drug Class(es) [...] ED Note-Physician Basic Information Time Seen: Darius LOMAX Fadi 09/23/2023 11:00 Chief Complaint felt off since [...] In 3 days 09/26/2023 EDT [address] [place] [address] [phone] Business (1) Additional Instructions: Patient Education Dizziness [...] made to ensure accuracy, however, inadvertently computerized overedge machine operator mistakes may be present. Appropriate healthcare PPE [...] compounds (Rash) (more content not included)... Normal [facility] Comment on above: Result Comment: Elec tronically Signed By: Fadi Mccoy PA-C\.br\Date and Time Signed: 09/23/23 12:54 EDT\.br\Electronically Co-Signed By: Boby Cevallos DO\.br\Date and Time Co-Signed: 09/29/23 09:31 EDT BB Draw & Holdon 09-23-2023 BB D&H Sample drawn for Blood Ba Normal [facility] Comment on above: Performed By: #### 1 [id number] #### [facility] [address] [place] [address] CBC w/ Auto Diffon 4 Basophils/100 WBC (Bld) 0.6 % Normal 0.0-2.0 [facility] Comment on above: Performed By: #### 2 [id number] #### [facility] [address] [place] [address] Basophils/Leukocytes Auto (Bld) [Pure # fraction] 0.0 E9/L Normal 0.0-0.2 [facility] Comment on above: Performed By: #### 2 [id number] #### [facility] [address] [place] [address] Eosinophils (Bld) [#/Vol] 0.0 E9/L Normal 0.0-0.5 [facility] Comment on above: Performed By: #### 2 [id number] #### [facility] [address] [place] [address] Eosinophils/100 WBC (Bld) 0.6 % Normal 0.0-8.0 [facility] Comment on above: Performed By: #### 2 [id number] #### [facility] [address] [place] [address] Erythrocyte distribution width (RBC) [Ratio] 12.8 % Normal 10.9-14.2 [facility] Comment on above: Performed By: #### 2 [id number] #### [facility] [address] [place] [address] Hematocrit (Bld) [Volume fraction] 42.7 % Normal 34.0-46.0 [facility] Comment on above: Performed By: #### 2 [id number] #### [facility] [address] [place] [address] Hemoglobin (Bld) [Mass/Vol] 14.7 g/dL Normal 12.0-16.0 [facility] Comment on above: Performed By: #### 2 [id number] #### [facility] [address] [place] [address] Lymphocytes (Bld) [#/Vol] 1.8 E9/L Normal 1.0-4.0 [facility] Comment on above: Performed By: #### 2 [id number] #### [facility] [address] [place] [address] Lymphocytes/100 WBC (Bld) 30.1 % Normal 14.0-50.0 [facility] Comment on above: Performed By: #### 2 [id number] #### [facility] [address] [place] [address] MCH (RBC) [Entitic mass] 29.9 pg Normal 27.0-34.0 [facility] Comment on above: Performed By: #### 2 [id number] #### [facility] [address] [place] [address] MCHC (RBC) [Mass/Vol] 34.4 g/dL Normal 31.4-36.0 [facility] Comment on above: Performed By: #### 2 [id number] #### [facility] [address] [place] [address] MCV (RBC) [Entitic vol] 86.8 fL Normal 80.0-100.0 [facility] Comment on above: Performed By: #### 2 [id number] #### [facility] [address] [place] [address] Monocytes (Bld) [#/Vol] 0.4 E9/L Normal 0.2-1.0 [facility] Comment on above: Performed By: #### 2 [id number] #### [facility] [address] [place] [address] Neutrophils (Bld) [#/Vol] 3.7 E9/L Normal 2.0-7.5 [facility] Comment on above: Performed By: #### 2 [id number] #### [facility] [address] [place] [address] Neutrophils/100 WBC (Bld) 61.2 % Normal 36.0-75.0 [facility] Comment on above: Performed By: #### 2 [id number] #### [facility] [address] [place] [address] Platelet mean volume (Bld) [Entitic vol] 9.4 fL Normal 6.4-10.8 [facility] Comment on above: Performed By: #### 2 [id number] #### [facility] [address] [place] [address] Platelets (Bld) [#/Vol] 184.0 E9/L Normal 150.0-500.0 [facility] Comment on above: Performed By: #### 2 [id number] #### [facility] [address] [place] [address] RBC (Bld) [#/Vol] 4.9 E12/L Normal 4.3-5.9 [facility] Comment on above: Performed By: #### 2 [id number] #### [facility] [address] [place] [address] WBC corrected for nucl RBC Auto (Bld) [#/Vol] 6.0 E9/L Normal 4.0-11.0 [facility] Comment on above: Performed By: #### 2 [id number] #### [facility] [address] [place] [address] CHEMISTRYOrdered By: SYSTEM SYSTEM on 09-23-2023 Albumin [...] Sensitivity Troponin I Instructions For Use, [place], September 2017) Urea nitrogen [Mass/Vol] 24 mg/dL High 5 - 21 mg/dL Remisol Chem Urea nitrogen/Creatinine [Mass ratio] 27 mg/mg High 10 - 20 Remisol Chem CHEMISTRYOrdered By: Lab ROP User on 09-23-2023 Glucose [Mass/Vol] 89 mg/dL Normal 55 - 99 mg/dL [facility] POC Subsection Comment on above: Result Comment: Trixie dominique Meter POC Device SN [id number] Invalid Interpretation Code [facility] POC Subsection POC User ID [id number] Invalid Interpretation Code [facility] POC Subsection POC Username SANG HEBERT Invalid Interpretation Code [facility] POC Subsection CMPon 09-23-2023 Albumin [Mass/Vol] 4.7 g/dL Normal 3.3-5.0 [facility] Comment on above: Performed By: #### 2 [id number] #### [facility] [address] [place] [address] Albumin/Globulin (S) [Mass conc ratio] 2.0 Normal 1.1-2.2 [facility] Comment on above: Performed By: #### 2 [id number] #### [facility] [address] [place] [address] ALP [Catalytic activity/Vol] 47 Int._Unit/L Normal 21-98 [facility] Comment on above: Performed By: #### 2 [id number] #### [facility] [address] [place] [address] ALT No additional P-5'-P [Catalytic activity/Vol] 22 Int._Unit/L Normal 6-46 [facility] Comment on above: Performed By: #### 2 313285 #### [facility] [address] [place] [address] Anion gap [Moles/Vol] 10 mmol/L Normal 6-16 [facility] Comment on above: Performed By: #### 2 [id number] #### [facility] [address] [place] [address] AST [Catalytic activity/Vol] 19 Int._Unit/L Normal 5-43 [facility] Comment on above: Performed By: #### 2 [id number] #### [facility] [address] [place] [address] Bilirubin [Mass/Vol] 0.4 mg/dL Normal 0.0-1.1 [facility] Comment on above: Performed By: #### 2 709762 #### [facility] [address] [place] [address] Calcium [Mass/Vol] 9.9 mg/dL Normal 8.9-11.1 [facility] Comment on above: Performed By: #### 2 850443 #### [facility] [address] [place] [address] Chloride [Moles/Vol] 104 mmol/L Normal 101-111 [facility] Comment on above: Performed By: #### 2 290692 #### [facility] [address] [place] [address] CO2 [Moles/Vol] 31 mmol/L Normal 21-31 [facility] Comment on above: Performed By: #### 2 533812 #### [facility] [address] [place] [address] Creatinine [Mass/Vol] 0.9 mg/dL Normal 0.5-1.3 [facility] Comment on above: Performed By: #### 2 386252 #### [facility] [address] [place] [address] Globulin (S) [Mass/Vol] 2.4 g/dL Normal 1.4-4.0 [facility] Comment on above: Performed By: #### 2 639420 #### [facility] [address] [place] [address] Glucose [Mass/Vol] 101 mg/dL Normal 55-199 [facility] Comment on above: Performed By: #### 2 015590 #### [facility] [address] [place] [address] Potassium [Moles/Vol] 3.5 mmol/L Normal 3.5-5.3 [facility] Comment on above: Performed By: #### 2 747174 #### [facility] [address] [place] [address] Protein [Mass/Vol] 7.1 g/dL Normal 6.0-7.8 [facility] Comment on above: Performed By: #### 2 702934 #### [facility] [address] [place] [address] Sodium [Moles/Vol] 141 mmol/L Normal 135-145 [facility] Comment on above: Performed By: #### 2 902106 #### [facility] [address] [place] [address] Urea nitrogen [Mass/Vol] 24 mg/dL High 5-21 [facility] Comment on above: Performed By: #### 2 144829 #### [facility] [address] [place] [address] Urea nitrogen/Creatinine [Mass ratio] 27 No Units High 10-20 [facility] Comment on above: Performed By: #### 2 [id number] #### [facility] [address] [place] [address] COAGULATIONOrdered By: Abigail Robles on 09-23-2023 aPTT Coag (PPP) [Time] 35.1 s Normal 25.1 - 36.5 second(s) [facility] Auto Coag Comment on above: Interpretive Data: P arameter 15 days - 4 weeks 1 - 5 months 6 - 11 months 1 - 5 years 6 - 10 years 11 - 17 years PTT Mean: 35.4 (27.6-45.6) Mean: 33.5 (24.8-40.7) Mean: 32.4 (25.1-40.7) Mean: 31.6 (24.0-39.2) Mean: 31.6 (26.9-38.7) Mean: 31.0 (24.6-38.4) Pediatric Reference ranges were obtained from a study by jim Mejaí al. prepared from 1437 samples obtained at 7 different centers using the same coagulation reagent and instrumentation as [facility]. Currently there are no coagulation studies available worldwide for children to 14 days, and no normal ranges. Heparin therapeutic range (represented by Anti-Factor Xa activity of 0.2 - 0.4 U/mL) corresponds to PTT of 56.6 - 109.0 sec. INR Coag (PPP) [Relative time] 1.01 {INR} Invalid Interpretation Code [facility] Auto Coag Comment on above: Interpretive Data: I NR results are specifically intended to assess patients stabilized on long-term Anticoagulation therapy suggested INR s Less Intensive Anticoagulation 2.0 3.0 Conventional Range 3.0 4.5 PT Coag (PPP) [Time] 11.3 s Normal 9.4 - 1 2.5 second(s) [facility] Auto Coag Comment on above: Interpretive Data: 1 5 days - 4 weeks 1 - 5 months 6 -11 months 1 5 years 6 10 years 11 -17 years Mean: 11.2 (9.5 12.6) Mean: 11.0 (9.7 12.8) Mean: 11.0 (9.8 13.0) Mean: 11.3 (9.9 13.4) Mean: 11.7 (10.0 14.6) Mean: 11.8 (10.0 - 14.1) Pediatric Reference ranges were obtained from a study by jim Mejía al. prepared from 1437 samples obtained at 7 different centers using the same coagulation reagent and instrumentation as [facility]. Currently there are no coagulation studies available [...] Eliu Zhao M.D. neg for bleed. Normal [facility] Capillary Glucose POCon Glucose [Mass/Vol] 89 mg/dL Normal 55-99 [facility] Comment on above: Result Comment: Trixie fox Meter Performed By: #### 2 [id number] #### [facility] [address] [place], [place] [id number] ED Clinical Summaryon 2023 ED Clinical Summary ED Clinical Summary [address] [address] ED Clinical Summary Person Information Name: AUDREY MUÑOZ [facility] Age: 48 Years : 1975 Sex: Female Language: Yi PCP: YESICA NICKERSON CNP Marital Status: Visit [...] 09/23/2023 13:01:25 09/23/2023 13:01:25 09/23/2023 13:01:25 ADDRESS: [address] [place] [phone] PHYS DOC NOTES: MEDICAL INFORMATION: Prescriptions Given: Medications to Continue with No Changes Other Medications alprazolam (alprazolam 0.25 mg Tab) 30 tab(s). metaxalone (metaxalone 800 mg Tab) omeprazole (omeprazole 40 mg Cap-DR) 30 EA, TAKE 1 CAPSULE BY MOUTH EVERY DAY. PATIENT EDUCATION INFORMATION: Instructions: Dizziness Follow up: With: Address: When: YESICA NICKERSON [address] [place], [place] [phone] Business (1) In 3 days 09/26/2023 DIAGNOSIS: Dizziness; Weakness Normal [facility] ED Patient Summaryon ED Patient Summary ED Patient Summary [address] [address] Patient Discharge Instructions Person Information Name: AUDREY MUÑOZ Age: 48 Years Arrival Date: 09/23/2023 10:54:19 Discharge Diagnosis: Dizziness; Weakness Primary Care Physician: YESICA NICKERSON CNP Provider Information Primary Provider: Boby Cevallos DO Advanced Laborer Operator:Fadi Mccoy PA-C The exam and treatment you received in the Emergency Department were for an urgent problem and are not intended as complete care. It is important that you follow up with a doctor, nurse practitioner, or physician?s assistant boys track coach for ongoing care. If your symptoms become [...] With: Address: When: YESICA NICKERSON [address] [place], [place] [phone] Business (1) In 3 days 09/26/2023 In the event that this physician does not participate in your insurance network, please consult with your insurance company to find a nearby participating provider. Patient Education Materials: Dizziness A MESSAGE TO ALL PATIENTS REGARDING OPIOIDS PRESCRIPTION OPIOIDS: WHAT YOU NEED TO KNOW Prescription opioids can be used to help relieve jduljmnd-pt-eqrowt pain and are often prescribed following a [...] be struggling with addiction, tell your health caregiver assisted living and ask for guidance or call [facility] National Helpline at 8-388-048-SNM (more content not included)... Normal [facility] HEMATOLOGYOrdered By: Siobhan Robles on 09-23-2023 [...] Coag (PPP) [Time] 35.1 second(s) Normal 25.1-36.5 [facility] Comment on above: Result Comment: Para [...] the same coagulation reagent and instrumentation as [facility]. Currently there are no coagulation studies available worldwide for children to 14 days, and no normal ranges. Heparin therapeutic range (represented by Anti-Factor Xa activity of 0.2 - 0.4 U/mL) corresponds to PTT of 56.6 - 109.0 sec. Performed By: #### 1 [id number] #### [facility] [address] [place] [address] INR Coag (PPP) [Relative time] 1.01 {INR} Invalid Interpretation Code [facility] Comment on above: Result Comment: INR results are specifically intended to assess patients stabilized on long-term Anticoagulation therapy suggested INR?s ?Less Intensive Anticoagulation? 2.0 ? 3.0 Conventional Range 3.0 ? 4.5 Performed By: #### 1 [id number] #### [facility] [address] [place] [address] PT Coag (PPP) [Time] 11.3 second(s) Normal 9.4-12.5 [facility] Comment on above: Result Comment: 15 [...] the same coagulation reagent and instrumentation as [facility]. Currently there are no coagulation studies available worldwide for children to 14 days, and no normal ranges. Performed By: #### 1 [id number] #### [facility] [address] [place] [address] Troponin 0 Hr.on 09-23-2023 Troponin HS <2.30 Low 10.10-27.10 [facility] Comment on above: Result Comment: The 95% CI (Confidence Interval) PPV (Positive Predictive Value) for myocardial infarction in females is 38 pg/mL, in males 51 pg/mL. The results should be used in conjunction with clinical conditions of myocardial infarction. (Access High Sensitivity Troponin I Instructions For Use, [place], September 2017) Performed By: #### 1 [id number] #### [facility] [address] [place] [address] UA with Cult Rflxon 09-23-19 24 Bilirubin Ql (U) Negative Normal Negative [facility] Comment on above: Performed By: #### 4 [id number] #### [facility] [address] [place] [address] Clarity (U) Clear Normal Clear [facility] Comment on above: Performed By: #### 4 [id number] #### [facility] [address] [place] [address] Color (U) Light-Yellow Normal Yellow [facility] Comment on above: Result Comment: Micr oscopic readings are only performed on those samples that meet specific criteria set forth by [facility]. Performed By: #### 4 [id number] #### [facility] [address] [place] [address] Glucose Ql (U) Negative Normal Negative [facility] Comment on above: Performed By: #### 4 [id number] #### [facility] [address] [place] [address] Hemoglobin Auto test strip (U) [Mass/Vol] Negative Normal Negative [facility] Comment on above: Performed By: #### 4 [id number] #### [facility] [address] [place] [address] Ketones Auto test strip Ql (U) Negative Normal Negative [facility] Comment on above: Performed By: #### 4 [id number] #### [facility] [address] [place] [address] Leukocyte esterase Auto test strip Ql (U) Negative Normal Negative [facility] Comment on above: Performed By: #### 4 [id number] #### [facility] [address] [place] [address] Nitrite Auto test strip Ql (U) Negative Normal Negative [facility] Comment on above: Performed By: #### 4 [id number] #### [facility] [address] [place] [address] pH (U) 5.5 [pH] Invalid Interpretation Code 5.0-9.0 [facility] Comment on above: Performed By: #### 4 [id number] #### [facility] [address] [place] [address] Protein Ql (U) Negative Normal Negative [facility] Comment on above: Performed By: #### 4 [id number] #### [facility] [address] [place] [address] Specific gravity (U) [Rel density] 1.023 Invalid Interpretation Code 1.005-1.030 [facility] Comment on above: Performed By: #### 4 [id number] #### [facility] [address] [place] [address] Urobilinogen (U) [Mass/Vol] Negative Normal Negative [facility] Comment on above: Performed By: #### 4 [id number] #### [facility] [address] [place] [address] Type of Urine collection method Clean Catch Normal [facility] Comment on above: Performed By: #### 4 [id number] #### [facility] [address] [place] [address] URINALYSISOrdered By: SYSTEM SYSTEM on 09-23-2023 Bilirubin Ql (U) Negative Normal Negativemg/ d L [facility] UA Auto SS Clarity (U) Clear (09/23/23 12:16 PM) Normal Clear [facility] UA Auto SS Color (U) Light-Yellow 1 (09/23/23 12:16 PM) Normal Yellow [facility] UA Auto SS Comment on above: Interpretive Data: M icroscopic readings are only performed on those samples that meet specific criteria set forth by [facility]. Glucose Ql (U) Negative Normal Negativemg/d L [facility] UA Auto SS Hemoglobin Auto test strip (U) [Mass/Vol] Negative Normal Negativemg/d L [facility] UA Auto SS Ketones Auto test strip Ql (U) Negative Normal Negativemg/d L [facility] UA Auto SS Leukocyte esterase Auto test strip Ql (U) Negative Normal NegativeLeu/ uL [facility] UA Auto SS Nitrite Auto test strip Ql (U) Negative Normal Negativemg/d L [facility] UA Auto SS pH (U) 5.5 *NA* (09/23/23 12:16 PM) Invalid Interpretation Code 5.0 - 9.0 [facility] UA Auto SS Protein Ql (U) Negative Normal Negativemg/d L [facility] UA Auto SS Specific gravity (U) [Rel density] 1.023 *NA* (09/23/23 12:16 PM) Invalid Interpretation Code 1.005 - 1.030 [facility] UA Auto SS Urobilinogen (U) [Mass/Vol] Negative Normal Negativemg/d L [facility] UA Auto SS URINALYSISOrdered By: Fadi Mccoy on 09-23-2023 UA Spec Desc Clean Catch (09/23/23 12:16 PM) Normal [facility]A Auto SS XR Chest Single Viewon [...] mGy = na DAP = na Normal [facility] eGFRon 09-23-2023 eGFR 79 mL/min/1.73 m2 Normal >=59 [facility] Comment on above: Order Comment: Order added by Discern Expert. Performed By: #### 1 [id number] #### [facility] [address] [id number] COVID Quick Testingon 2022 Result Positive [employer] Other Cortisol, ACTH Stimulationon 06-28-2022 Cortisol, ACTH Stimulation Normal [facility] Comment on above: Result Comment: [employer] 11.4 Col: 06/28/22 1000 [place] 30Min 20.6 Col: 06/28/22 1050 [place] 60Min 23.2 Col: 06/28/22 1120 PERFORMED BY: [place] [address] PATHOLOGIST [employer]CTORIAN LITERATURE PROFESSOR LYDIA JACKSON M.D. Performed By: #### C ORT STIMULAT #### [address] No Panel InformationOrdered By: Gopal Potter on 06-28-2022 Cortisol Response to Stimulation See comment [facility] Comment on above: [employer] 11.4 Col: 06/28/22 1000 [place] 30Min 20.6 Col: 06/28/22 1050 [place] 60Min 23.2 Col: 06/28/22 1120 Quick Strepon 06-11-2022 S. pyogenes Org specific cx Ql (Throat) Negative [facility] [employer] Other Quick Strep [facility] [employer] Other PROF CHEM 8 (BAS METB)on Anion gap [Moles/Vol] 10.7 mmol/L Normal [facility] Comment on above: Performed By: #### B MP #### [facility] [address] [address] [address] Brandon Hodges Calcium [Mass/Vol] 9.3 mg/dL Normal 8.5-10.1 [facility] Comment on above: Performed By: #### B MP #### [facility] [address] [address] [address] Brandon Hodges Chloride [Moles/Vol] 103 mmol/L Normal 98-107 [facility] Comment on above: Performed By: #### B MP #### [facility] [address] [address] [address] Brandon Hodges CO2 [Moles/Vol] 31.5 mmol/L Normal 21.0-32.0 [facility] Comment on above: Performed By: #### B MP #### [facility] [address] [place] [address] Dr. Brandon Hodges Creatinine [Mass/Vol] 0.76 mg/dL Normal 0.55-1.02 [facility] Comment on above: Performed By: #### B MP #### [facility] [address] [address] [address] Brandon Hodges EGFR-AF PALAUAN >60 Normal >=60 [facility] Comment on above: Performed By: #### B MP #### [facility] [address] [address] [address] Brandon Hodges EGFR-NON AF PALAUAN >60 Normal >=60 [facility] Comment on above: Performed By: #### B MP #### [facility] [address] [place] [address] Dr. Brandon Hodges Glucose [Mass/Vol] 124 mg/dL Critically high 74-106 [facility] Comment on above: Performed By: #### B MP #### [facility] [address] [address] [address] Brandon Hodges Potassium [Moles/Vol] 4.2 mmol/L Normal 3.5-5.1 [facility] Comment on above: Performed By: #### B MP #### [facility] [address] [address] [address] Brandon Hodges Sodium [Moles/Vol] 141 mmol/L Normal 136-145 [facility] Comment on above: Performed By: #### B MP #### [facility] [address] [address] [address] Brandon Hodges Urea nitrogen [Mass/Vol] 19.0 mg/dL Critically high 7.0-18.0 [facility] Comment on above: Performed By: #### B MP #### [facility] [address] [address] [address] Brandon Hodges Urea nitrogen/Creatinine [Mass ratio] 25.0 mg/mg Normal [facility] Comment on above: Performed By: #### B MP #### [facility] [address] [address] [address] Brandon Hodges TESTOSTERONE, FREE,DIRECT, T OTALon 04-25-2022 Free Testosterone(Direct) <0.2 Normal 0.0-4.2 [facility] Comment on above: Result Comment: Perf ormed at: BN Performed By: #### I NSULIN #### [facility] [address] [address] [address] Brandon Hodges Testosterone [Mass/Vol] 3 ng/dL Critically low 4-50 [facility] Comment on above: Result Comment: Perf ormed at: CB Performed By: #### I NSULIN #### [facility] [address] [place] [address] Dr. Brandon Hodges ESTRONEon 04-23-2022 Estrone, Serum 20 pg/mL Normal [facility] Comment on above: Result Comment: Rang e Adult (Premenopausal) 27 - 231 Menstrual Cycle (1-10 days) 19 - 149 Menstrual Cycle (11-20 days) 32 - 176 Menstrual Cycle (21-30 days) 37 - 200 Adult (Postmenopausal) 0 - 125 Performed By: #### I NSULIN #### [facility] [address] [place] [address] Dr. Brandon Hodges REVERSE T3on 04-23-2022 Reverse T3, Serum 36.8 ng/dL Critically high 9.2-24.1 [facility] Comment on above: Result Comment: This test was developed and its performance characteristics determined by [employer]. It has not been cleared or approved by the Food and Drug Administration. Performed By: #### B MP #### [facility] [address] [place] [address] Dr. Brandon Hodges CORTISOLon 04-20-2022 Cortisol 1.0 ug/dL Normal [facility] Comment on above: Result Comment: [place] isol AM 6.2 - 19.4 Cortisol PM 2.3 - 11.9 Performed By: #### C ORTISO #### [facility] [address] [place] [address] Dr. Brandon Hodges DHEA-SULFATEon 04-20-2022 DHEA-Sulfate 55.9 ug/dL Normal 41.2-243.7 [facility] Comment on above: Performed By: #### I NSULIN #### [facility] [address] [place] [address] Dr. Brandon Hodges ESTRADIOLon 04-20-2022 Estradiol 25.1 pg/mL Normal [facility] Comment on above: Result Comment: Adul t Female: Follicular phase 12.5 - 166.0 Ovulation phase 85.8 - 498.0 Luteal phase 43.8 - 211.0 Postmenopausal <6.0 - 54.7 1st trimester 215.0 - >4300.0 Jason ECLIA methodology Performed By: #### B MP #### [facility] [address] [place] [address] Dr. Brandon Hodges INSULINon 04-20-2022 Insulin 30.0 uIU/mL Critically high 2.6-24.9 [facility] Comment on above: Performed By: #### I NSULIN #### [facility] [address] [place] [address] Dr. Brandon Hodges PROGESTERONEon 04-20-2022 Progesterone <0.1 Normal [facility] Comment on above: Result Comment: Foll icular phase 0.1 - 0.9 Luteal phase 1.8 - 23.9 Ovulation phase 0.1 - 12.0 First trimester 11.0 - 44.3 Second trimester 25.4 - 83.3 Third trimester 58.7 - 214.0 Postmenopausal 0.0 - 0.1 Performed By: #### B MP #### [facility] [address] [place] [address] Dr. Brandon Hodges SEX HORMONE-BINDING GLOBULIN on 04-20-2022 Sex Horm Binding Glob, Serum 30.3 nmol/L Normal 24.6-122.0 [facility] Comment on above: Performed By: #### B MP #### [facility] [address] [place] [address] Dr. Brandon Hodges FERRITINon 04-19-2022 Ferritin [Mass/Vol] 53.0 ng/mL Normal 6.2-137.0 [facility] Comment on above: Performed By: #### B MP #### [facility] [address] [place] [address] Dr. Brandon Hodges FREE T3on 04-19-2022 FREE T3 2.34 pg/mlL Normal 2.18-3.98 [facility] Comment on above: Performed By: #### T SH, T4, FT3, BMP, LIPID, LIVER #### [facility] [address] [place] [address] Dr. Brandon Hodges FREE T4on 04-19-2022 Free T4 [Mass/Vol] 0.92 ng/dL Normal 0.76-1.46 [facility] Comment on above: Performed By: #### B MP #### [facility] [address] [place] [address] Dr. Brandon Hodges GLYCOHEMOGLOBIN A1Con 2022 ADA RECOMMENDATION SEE BELOW Normal [facility] Comment on above: Result Comment: ADA RECOMMENDED LIMIT 4.0 - 6.0 ADA THERAPEUTIC TARGET < 7.0 ACTION SUGGESTED > 7.0 Performed By: #### A 1C #### [facility] [address] [place] [address] Dr. Brandon Hodges Glucose [Mass/Vol] 105 mg/dL Normal [facility] Comment on above: Performed By: #### A 1C #### [facility] [address] [address] [address] Brandon Hodges HbA1c (Bld) [Mass fraction] 5.3 % Normal 4.5-6.2 [facility] Comment on above: Performed By: #### A 1C #### [facility] [address] [address] [address] Brandon Hodges LIPID PROFILEon 04-19-2022 CHOL-HDL RATIO NORM SEE BELOW Normal [facility] Comment on above: Result Comment: 3.3 - 4.4 LOW RISK 4.4 - 7.1 AVERAGE RISK 7.1 - 11.0 MODERATE RISK >11.0 HIGH RISK Performed By: #### T SH, T4, FT3, BMP, LIPID, LIVER #### [facility] [address] [place] [address] Dr. Brandon Hodges Cholesterol [Mass/Vol] 258 mg/dL Critically high <=200 [facility] Comment on above: Performed By: #### T SH, T4, FT3, BMP, LIPID, LIVER #### [facility] [address] [place] [address] Dr. Brandon Hodges Cholesterol in HDL [Mass/Vol] 47 mg/dL Normal 40-60 [facility] Comment on above: Performed By: #### T SH, T4, FT3, BMP, LIPID, LIVER #### [facility] [address] [place] [address] Dr. Brandon Hodges Cholesterol in LDL [Mass/Vol] 199.0 mg/dL Normal [facility] Comment on above: Performed By: #### T SH, T4, FT3, BMP, LIPID, LIVER #### [facility] [address] [place] [address] Dr. Brandon Hodges Cholesterol.total/Chol esterol in HDL [Mass ratio] 5.5 {ratio} Normal [facility] Comment on above: Performed By: #### T SH, T4, FT3, BMP, LIPID, LIVER #### [facility] [address] [address] [address] Brandon Hodges HDL NORMAL > or = 60 mg/dl - LOW CARDIOVASCULAR RISK <40 mg/dl - HIGH CARDIOVASCULAR RISK Normal [facility] Comment on above: Performed By: #### T SH, T4, FT3, BMP, LIPID, LIVER #### [facility] [address] [address] [address] Brandon Hodges LDL CALC NORMAL SEE BELOW Normal [facility] Comment on above: Result Comment: <100 mg/dl OPTIMAL 100 - 129 mg/dl NEAR OR ABOVE OPTIMAL 130 - 159 mg/dl BORDERLINE HIGH 160 - 189 mg/dl HIGH >190 mg/dl VERY HIGH Performed By: #### T SH, T4, FT3, BMP, LIPID, LIVER #### [facility] [address] [address] [address] Brandon Hodges Triglyceride [Mass/Vol] 60 mg/dL Normal <=150 [facility] Comment on above: Performed By: #### T SH, T4, FT3, BMP, LIPID, LIVER #### [facility] [address] [place] [address] Dr. Brandon Hodges VLDL CALC 12.0 mg/dL Normal [facility] Comment on above: Performed By: #### T SH, T4, FT3, BMP, LIPID, LIVER #### [facility] [address] [address] [address] Brandon Hodges LIVER PROFILEon 04-19-2022 Albumin [Mass/Vol] 4.3 g/dL Normal 3.4-5.0 [facility] Comment on above: Performed By: #### T SH, T4, FT3, BMP, LIPID, LIVER #### [facility] [address] [address] [address] Brandon Hodges Albumin/Globulin [Mass ratio] 1.3 {ratio} Normal [facility] Comment on above: Performed By: #### T SH, T4, FT3, BMP, LIPID, LIVER #### [facility] [address] [address] [address] Brandon Hodges ALP [Catalytic activity/Vol] 86 U/L Normal 46-116 [facility] Comment on above: Performed By: #### T SH, T4, FT3, BMP, LIPID, LIVER #### [facility] [address] [place] [address] Dr. Brandon Hodges ALT [Catalytic activity/Vol] 31 U/L Normal 14-59 [facility] Comment on above: Performed By: #### T SH, T4, FT3, BMP, LIPID, LIVER #### [facility] [address] [place] [address] Dr. Brandon Hodges AST [Catalytic activity/Vol] 18 U/L Normal 15-37 [facility] Comment on above: Performed By: #### T SH, T4, FT3, BMP, LIPID, LIVER #### [facility] [address] [place] [address] Dr. Brandon Hodges BILI, CONJUGATED <0.1 Normal 0.0-0.2 [facility] Comment on above: Performed By: #### T SH, T4, FT3, BMP, LIPID, LIVER #### [facility] [address] [place] [address] Dr. Brandon Hodges Bilirubin [Mass/Vol] 0.3 mg/dL Normal 0.2-1.0 [facility] Comment on above: Performed By: #### T SH, T4, FT3, BMP, LIPID, LIVER #### [facility] [address] [place] [address] Dr. Brandon Hodges Globulin (S) [Mass/Vol] 3.4 g/dL Normal [facility] Comment on above: Performed By: #### T SH, T4, FT3, BMP, LIPID, LIVER #### [facility] [address] [place] [address] Dr. Brandon Hodges Protein [Mass/Vol] 7.7 g/dL Normal 6.4-8.2 [facility] Comment on above: Performed By: #### T SH, T4, FT3, BMP, LIPID, LIVER #### [facility] [address] [place] [address] Dr. Brandon Hodgse PROF CHEM 8 (BAS METB)on Anion gap [Moles/Vol] 14.5 mmol/L Normal [facility] Comment on above: Performed By: #### T SH, T4, FT3, BMP, LIPID, LIVER #### [facility] [address] [address] [address] Brandon Hodges Calcium [Mass/Vol] 9.6 mg/dL Normal 8.5-10.1 [facility] Comment on above: Performed By: #### T SH, T4, FT3, BMP, LIPID, LIVER #### [facility] [address] [address] [address] Brandon Hodges Chloride [Moles/Vol] 108 mmol/L Critically high 98-107 [facility] Comment on above: Performed By: #### T SH, T4, FT3, BMP, LIPID, LIVER #### [facility] [address] [place] [address] Dr. Brandon Hodges CO2 [Moles/Vol] 26.1 mmol/L Normal 21.0-32.0 [facility] Comment on above: Performed By: #### T SH, T4, FT3, BMP, LIPID, LIVER #### [facility] [address] [place] [address] Dr. Brandon Hodges Creatinine [Mass/Vol] 0.75 mg/dL Normal 0.55-1.02 [facility] Comment on above: Performed By: #### T SH, T4, FT3, BMP, LIPID, LIVER #### [facility] [address] [place] [address] Dr. Brandon Hodges EGFR-AF PALAUAN >60 Normal >=60 [facility] Comment on above: Performed By: #### T SH, T4, FT3, BMP, LIPID, LIVER #### [facility] [address] [place] [address] Dr. Brandon Hodges EGFR-NON AF PALAUAN >60 Normal >=60 [facility] Comment on above: Performed By: #### T SH, T4, FT3, BMP, LIPID, LIVER #### [facility] [address] [place] [address] Dr. Brandon Hodges Glucose [Mass/Vol] 122 mg/dL Critically high 74-106 [facility] Comment on above: Performed By: #### T SH, T4, FT3, BMP, LIPID, LIVER #### [facility] [address] [place] [address] Dr. Brandon Hodges Potassium [Moles/Vol] 4.6 mmol/L Normal 3.5-5.1 [facility] Comment on above: Performed By: #### T SH, T4, FT3, BMP, LIPID, LIVER #### [facility] [address] [place] [address] Dr. Brandon Hodges Sodium [Moles/Vol] 144 mmol/L Normal 136-145 [facility] Comment on above: Performed By: #### T SH, T4, FT3, BMP, LIPID, LIVER #### [facility] [address] [place] [address] Dr. Brandon Hodges Urea nitrogen [Mass/Vol] 13.0 mg/dL Normal 7.0-18.0 [facility] Comment on above: Performed By: #### T SH, T4, FT3, BMP, LIPID, LIVER #### [facility] [address] [place] [address] Dr. Brandon Hodges Urea nitrogen/Creatinine [Mass ratio] 17.3 mg/mg Normal [facility] Comment on above: Performed By: #### T SH, T4, FT3, BMP, LIPID, LIVER #### [facility] [address] [place] [address] Dr. Brandon Hodges T4on 04-19-2022 T4 [Mass/Vol] 9.00 ug/dL Normal 4.80-13.90 [facility] Comment on above: Performed By: #### T SH, T4, FT3, BMP, LIPID, LIVER #### [facility] [address] [place] [address] Dr. Brandon Hodges TSHon 04-19-2022 TSH 0.335 uIU/mL Critically low 0.358-3.740 [facility] Comment on above: Performed By: #### T SH, T4, FT3, BMP, LIPID, LIVER #### [facility] [address] [place] [address] Dr. Brandon Hodges VITAMIN D 25 OHon 04-19-2022 VIT D 25-OH 29.4 ng/mL Normal [facility] Comment on above: Performed By: #### B MP #### [facility] [address] [address] [address] Brandon Hodges VIT D RANGES SEE BELOW Normal [facility] Comment on above: Result Comment: <20 ng/mL Vit D deficient 20 - <30 ng/mL Vit D insufficient 30 - 100 ng/mL Vit D sufficient >100 ng/mL Potential Toxicity Performed By: #### B MP #### [facility] [address] [address] [address] Brandon Hodges MG MAMM SCREEN 3D DIEGO CADon 01-11-2022 MG MAMM SCREEN 3D DIEGO CAD Patient: AUDREY MUÑOZ Exam Date: 01/11/2022 : 1975 Gender:F Ordering : [facility] NICKERSON [facility] Admission #: [id number] Family : Order #: [id number] CLICK HERE TO VIEW EXAM RADIOLOGY REPORT [...] leukemia cancer at age 72. LOCATION: [facility] BREAST COMPOSITION: Heterogeneously dense,which may obscure [...] Hollingsworth M.D. on 01/15/2022 at 12:03 Normal [facility] CHEMISTRYOrdered By: SYSTEM SYSTEM on 08-17-2021 Anion gap [Moles/Vol] 9 mmol/L Normal 6 - 16 mEq/L F [facility] Remisol Calcium [Mass/Vol] 9.2 mg/dL Normal 8.9 - 11. 1 mg/dL [facility] Chloride [Moles/Vol] 107 mmol/L Normal 101 - 1 11 mmol/L [facility] Remisol CO2 [Moles/Vol] 27 mmol/L Normal 21 - 31 mmol/L [facility] Remisol Creatinine [Mass/Vol] 0.8 mg/dL Normal 0.5 - 1.3 mg/dL [facility] Remisol GFR/1.73 sq M.predicted among blacks MDRD (S/P/Bld) [Vol rate/Area] mL/min/1.73 m2 Normal >=59mL/min/1 .73 m2 [facility] Chem S GFR/1.73 sq M.predicted among non-blacks MDRD (S/P/Bld) [Vol rate/Area] mL/min/1.73 m2 Normal >=59mL/min/1 .73 m2 [facility] Chem S Glucose [Mass/Vol] 96 mg/dL Normal 55 - 199 mg/dL [facility] Potassium [Moles/Vol] 3.8 mmol/L Normal 3.5 - 5.3 mmol/L [facility] Sodium [Moles/Vol] 139 mmol/L Normal 135 - 145 mmol/L [facility] Remisol Urea nitrogen [Mass/Vol] 18 mg/dL Normal 5 - 21 mg/dL [facility] Urea nitrogen/Creatinine [Mass ratio] 22 mg/mg High 10 - 20 [facility] Remisol HEMATOLOGYOrdered By: Alana Hill on 08-17-2021 [...] 4.8 E12/L Normal 4.3 - 5.9 E12/L [facility] HemeAutoSS WBC corrected for nucl RBC Auto [...] by Colt Silvestre on 08/01/2021 1109 Normal [facility] [employer] THYROGLOBULINon 06-24-2021 Thyroglobulin 3.9 ng/mL Normal [facility] Comment on above: Result Comment: This [...] ng/mL. Performed By: #### B MP #### [facility] [address] [place] [address] Dr. Brandon Hodges RENITA by IFAon 06-18-2021 Antinuclear Antibodies, IFA Negative Normal [facility] Comment on above: Result Comment: Nega tive <1:80 Borderline 1:80 Positive >1:80 ICAP nomenclature: AC-0 For more information about Hep-2 cell patterns use ANApatterns.org, the official website for the International Consensus on Antinuclear Antibody (RENITA) Patterns (ICAP). Performed By: #### I NSULIN #### [facility] [address] [place] [address] Dr. Brandon Hodges ANTISTREPTOLYSIN O AB (ASO)o n 06-16-2021 Antistreptolysin O Ab 108.1 IU/mL Normal 0.0-200.0 [facility] Comment on above: Performed By: #### I NSULIN #### [facility] [address] [place] [address] Dr. Brandon Hodges RHEUMATOID FACTORon 06-17-19 RA Latex Turbid. 11.1 IU/mL Normal <14.0 [facility] Comment on above: Performed By: #### I NSULIN #### [facility] [address] [place] [address] Dr. Brandon Hodges CBC AUTO DIFFon 06-15-2021 BASO # 0.0 103/ul Normal 0.0-0.1 [facility] Comment on above: Performed By: #### I NSULIN #### [facility] [address] [place] [address] Dr. Brandon Hodges Basophils/100 WBC (Bld) 0.4 % Normal 0.2-2.0 [facility] Comment on above: Performed By: #### I NSULIN #### [facility] [address] [place] [address] Dr. Brandon Hodges EO # 0.0 103/ul Normal 0.0-0.7 [facility] Comment on above: Performed By: #### I NSULIN #### [facility] [address] [place] [address] Dr. Brandon Hodges Eosinophils/100 WBC (Bld) 0.7 % Critically low 0.9-7.0 [facility] Comment on above: Performed By: #### I NSULIN #### [facility] [address] [place] [address] Dr. Brandon Hodges Erythrocyte distribution width (RBC) [Ratio] 12.8 % Normal 11.0-15.0 [facility] Comment on above: Performed By: #### I NSULIN #### [facility] [address] [place] [address] Dr. Brandon Hodges Hematocrit (Bld) [Volume fraction] 43.3 % Normal 36.0-48.0 [facility] Comment on above: Performed By: #### I NSULIN #### [facility] [address] [place] [address] Dr. Brandon Hodges Hemoglobin (Bld) [Mass/Vol] 14.1 g/dL Normal 12.0-16.0 [facility] Comment on above: Performed By: #### I NSULIN #### [facility] [address] [place] [address] Dr. Brandon Hodges IG # 0.00 10e3/ul Normal 0.00-0.03 [facility] Comment on above: Performed By: #### I NSULIN #### [facility] [address] [place] [address] Dr. Brandon Hodges IG % 0.0 % Normal 0.0-0.5 [facility] Comment on above: Performed By: #### I NSULIN #### [facility] [address] [place] [address] Dr. Brandon Hodges LYMPH # 1.6 103/ul Normal 1.2-3.8 [facility] Comment on above: Performed By: #### I NSULIN #### [facility] [address] [address] [address] Brandon Hodges Lymphocytes/100 WBC (Bld) 35.1 % Normal 20.5-60.0 [facility] Comment on above: Performed By: #### I NSULIN #### [facility] [address] [place] [address] Dr. Brandon Hodges MANUAL DIFF REQ NO Normal [facility] Comment on above: Performed By: #### I NSULIN #### [facility] [address] [place] [address] Dr. Brandon Hodges MCH (RBC) [Entitic mass] 29.4 pg Normal 26.7-34.0 [facility] Comment on above: Performed By: #### I NSULIN #### [facility] [address] [place] [address] Dr. Brandon Hodges MCHC (RBC) [Mass/Vol] 32.6 g/dL Normal 29.9-35.2 [facility] Comment on above: Performed By: #### I NSULIN #### [facility] [address] [place] [address] Dr. Brandon Hodges MCV (RBC) [Entitic vol] 90.2 fL Normal 81.0-99.0 [facility] Comment on above: Performed By: #### I NSULIN #### [facility] [address] [place] [address] Dr. Brandon Hodges MONO # 0.3 103/ul Normal 0.3-0.8 [facility] Comment on above: Performed By: #### I NSULIN #### [facility] [address] [place] [address] Dr. Brandon Hodges Monocytes/100 WBC (Bld) 6.8 % Normal 1.7-12.0 [facility] Comment on above: Performed By: #### I NSULIN #### [facility] [address] [place] [address] Dr. Brandon Hodges NEUT # 2.6 103/ul Normal 1.4-6.5 [facility] Comment on above: Performed By: #### I NSULIN #### [facility] [address] [address] [address] Brandon Hodges Neutrophils/100 WBC (Bld) 57.0 % Normal 43.0-75.0 [facility] Comment on above: Performed By: #### I NSULIN #### [facility] [address] [address] [address] Brandon Hodges Platelet mean volume (Bld) [Entitic vol] 10.8 fL Normal 9.5-13.5 [facility] Comment on above: Performed By: #### I NSULIN #### [facility] [address] [address] [address] Brandon Hodges PLT 220 103/ul Normal 150-450 [facility] Comment on above: Performed By: #### I NSULIN #### [facility] [address] [place] [address] Dr. Brandon Hodges RBC 4.80 106/ul Normal 4.20-5.40 [facility] Comment on above: Performed By: #### I NSULIN #### [facility] [address] [place] [address] Dr. Brandon Hodges WBC 4.6 103/ul Normal 4.0-11.0 [facility] Comment on above: Performed By: #### I NSULIN #### [facility] [address] [place] [address] Dr. Brandon Hodges CRPon 06-15-2021 CRP [Mass/Vol] mg/L Normal <=1.0 [facility] Comment on above: Performed By: #### T SH, T4, FT3, BMP, LIPID, LIVER #### [facility] [address] [place] [address] Dr. Brandon Hodges FREE T4on 06-15-2021 Free T4 [Mass/Vol] 0.86 ng/dL Normal 0.76-1.46 [facility] Comment on above: Performed By: #### I NSULIN #### [facility] [address] [place] [address] Dr. Brandon Hodges LIPID PROFILEon 06-15-2021 CHOL-HDL RATIO NORM SEE BELOW Normal [facility] Comment on above: Result Comment: 3.3 - 4.4 LOW RISK 4.4 - 7.1 AVERAGE RISK 7.1 - 11.0 MODERATE RISK >11.0 HIGH RISK Performed By: #### T SH, T4, FT3, BMP, LIPID, LIVER #### [facility] [address] [address] [address] Brandon Hodges Cholesterol [Mass/Vol] 211 mg/dL Critically high <=200 [facility] Comment on above: Performed By: #### T SH, T4, FT3, BMP, LIPID, LIVER #### [facility] [address] [address] [address] Brandon Hodges Cholesterol in HDL [Mass/Vol] 37 mg/dL Critically low 40-60 [facility] Comment on above: Performed By: #### T SH, T4, FT3, BMP, LIPID, LIVER #### [facility] [address] [place] [address] Dr. Brandon Hodges Cholesterol in LDL [Mass/Vol] 151.4 mg/dL Normal [facility] Comment on above: Performed By: #### T SH, T4, FT3, BMP, LIPID, LIVER #### [facility] [address] [address] [address] Brandon Hodges Cholesterol.total/Chol esterol in HDL [Mass ratio] 5.7 {ratio} Normal [facility] Comment on above: Performed By: #### T SH, T4, FT3, BMP, LIPID, LIVER #### [facility] [address] [place] [address] Dr. Brandon Hodges HDL NORMAL > or = 60 mg/dl - LOW CARDIOVASCULAR RISK <40 mg/dl - HIGH CARDIOVASCULAR RISK Normal [facility] Comment on above: Performed By: #### T SH, T4, FT3, BMP, LIPID, LIVER #### [facility] [address] [place] [address] Dr. Brandon Hdoges LDL CALC NORMAL SEE BELOW Normal [facility] Comment on above: Result Comment: <100 mg/dl OPTIMAL 100 - 129 mg/dl NEAR OR ABOVE OPTIMAL 130 - 159 mg/dl BORDERLINE HIGH 160 - 189 mg/dl HIGH >190 mg/dl VERY HIGH Performed By: #### T SH, T4, FT3, BMP, LIPID, LIVER #### [facility] [address] [address] [address] Brandon Hodges Triglyceride [Mass/Vol] 113 mg/dL Normal <=150 [facility] Comment on above: Performed By: #### T SH, T4, FT3, BMP, LIPID, LIVER #### [facility] [address] [address] [address] Brandon Hodges VLDL CALC 22.6 mg/dL Normal [facility] Comment on above: Performed By: #### T SH, T4, FT3, BMP, LIPID, LIVER #### [facility] [address] [place] [address] Dr. Brandon Hodges PROF 14(COMP METB)on 022 Albumin [Mass/Vol] 3.8 g/dL Normal 3.4-5.0 [facility] Comment on above: Performed By: #### T SH, T4, FT3, BMP, LIPID, LIVER #### [facility] [address] [place] [address] Dr. Brandon Hodges Albumin/Globulin [Mass ratio] 1.2 {ratio} Normal [facility] Comment on above: Performed By: #### T SH, T4, FT3, BMP, LIPID, LIVER #### [facility] [address] [place] [address] Dr. Brandon Hodges ALP [Catalytic activity/Vol] 75 U/L Normal 46-116 [facility] Comment on above: Performed By: #### T SH, T4, FT3, BMP, LIPID, LIVER #### [facility] [address] [place] [address] Dr. Brandon Hodges ALT [Catalytic activity/Vol] 26 U/L Normal 14-59 [facility] Comment on above: Performed By: #### T SH, T4, FT3, BMP, LIPID, LIVER #### [facility] [address] [place] [address] Dr. Brandon Hodges Anion gap [Moles/Vol] 10.2 mmol/L Normal [facility] Comment on above: Performed By: #### T SH, T4, FT3, BMP, LIPID, LIVER #### [facility] [address] [place] [address] Dr. Brandon Hodges AST [Catalytic activity/Vol] 10 U/L Critically low 15-37 [facility] Comment on above: Performed By: #### T SH, T4, FT3, BMP, LIPID, LIVER #### [facility] [address] [place] [address] Dr. Brandon Hodges Bilirubin [Mass/Vol] 0.4 mg/dL Normal 0.2-1.0 [facility] Comment on above: Performed By: #### T SH, T4, FT3, BMP, LIPID, LIVER #### [facility] [address] [place] [address] Dr. Brandon Hodges Calcium [Mass/Vol] 8.3 mg/dL Critically low 8.5-10.1 [facility] Comment on above: Performed By: #### T SH, T4, FT3, BMP, LIPID, LIVER #### [facility] [address] [place] [address] Dr. Brandon Hodges Chloride [Moles/Vol] 103 mmol/L Normal 98-107 [facility] Comment on above: Performed By: #### T SH, T4, FT3, BMP, LIPID, LIVER #### [facility] [address] [place] [address] Dr. Brandon Hodges CO2 [Moles/Vol] 28.8 mmol/L Normal 21.0-32.0 [facility] Comment on above: Performed By: #### T SH, T4, FT3, BMP, LIPID, LIVER #### [facility] [address] [place] [address] Dr. Brandon Hodges Creatinine [Mass/Vol] 0.81 mg/dL Normal 0.55-1.02 [facility] Comment on above: Performed By: #### T SH, T4, FT3, BMP, LIPID, LIVER #### [facility] [address] [place] [address] Dr. Brandon Hodges EGFR-AF PALAUAN >60 Normal >=60 [facility] Comment on above: Performed By: #### T SH, T4, FT3, BMP, LIPID, LIVER #### [facility] [address] [address] [address] Brandon Hodges EGFR-NON AF PALAUAN >60 Normal >=60 [facility] Comment on above: Performed By: #### T SH, T4, FT3, BMP, LIPID, LIVER #### [facility] [address] [place] [address] Dr. Brandon Hodges Globulin (S) [Mass/Vol] 3.1 g/dL Normal [facility] Comment on above: Performed By: #### T SH, T4, FT3, BMP, LIPID, LIVER #### [facility] [address] [place] [address] Dr. Brandon Hodges Glucose [Mass/Vol] 95 mg/dL Normal 74-106 [facility] Comment on above: Performed By: #### T SH, T4, FT3, BMP, LIPID, LIVER #### [facility] [address] [place] [address] Dr. Brandon Hodges Potassium [Moles/Vol] 3.9 mmol/L Normal 3.5-5.1 [facility] Comment on above: Performed By: #### T SH, T4, FT3, BMP, LIPID, LIVER #### [facility] [address] [place] [address] Dr. Brandon Hodges Protein [Mass/Vol] 6.9 g/dL Normal 6.1-8.2 [facility] Comment on above: Performed By: #### T SH, T4, FT3, BMP, LIPID, LIVER #### [facility] [address] [place] [address] Dr. Brandon Hodges Sodium [Moles/Vol] 138 mmol/L Normal 136-145 [facility] Comment on above: Performed By: #### T SH, T4, FT3, BMP, LIPID, LIVER #### [facility] [address] [place] [address] Dr. Brandon Hodges Urea nitrogen [Mass/Vol] 20.0 mg/dL Critically high 7.0-18.0 [facility] Comment on above: Performed By: #### T SH, T4, FT3, BMP, LIPID, LIVER #### [facility] [address] [place] [address] Dr. Brandon Hodges Urea nitrogen/Creatinine [Mass ratio] 24.7 mg/mg Normal [facility] Comment on above: Performed By: #### T SH, T4, FT3, BMP, LIPID, LIVER #### [facility] [address] [place] [address] Dr. Brandon Hodges [facility] SED RATE <1 Normal <=20 [facility] Comment on above: Performed By: #### B MP #### [facility] [address] [place] [address] Dr. Brandon Hodges TSHon 06-15-2021 TSH 1.006 uIU/mL Normal 0.470-4.680 [facility] Comment on above: Performed By: #### T SH, T4, FT3, BMP, LIPID, LIVER #### [facility] [address] [place] [address] Dr. Brandon Hodges TSH RANGE SEE BELOW Normal [facility] Comment on above: Result Comment: <0.3 4 UIU/ml HYPERTHYROID 0.34-5.60 UIU/ml EUTHYROID >5.60 UIU/ml HYPOTHYROID Performed By: #### T SH, T4, FT3, BMP, LIPID, LIVER #### [facility] [address] [place] [address] Dr. Brandon Hodges URIC ACID SERUMon 06-15-2021 Urate [Mass/Vol] 4.2 mg/dL Normal 2.5-6.2 [facility] Comment on above: Performed By: #### T SH, T4, FT3, BMP, LIPID, LIVER #### [facility] [address] [place] [address] Dr. Brandon Hodges VITAMIN D 25 OHon 06-15-2021 VIT D 25-OH 47.6 ng/mL Normal [facility] Comment on above: Performed By: #### B MP #### [facility] [address] [place] [address] Dr. Brandon oHdges VIT D RANGES SEE BELOW Normal [facility] Comment on above: Result Comment: <20 ng/mL Vit D deficient 20 - <30 ng/mL Vit D insufficient 30 - 100 ng/mL Vit D sufficient >100 ng/mL Potential Toxicity Performed By: #### B #### [facility] [address] [place] [address] Dr. Brandon Hodges XR KNEE DIEGO 3 [...] DOUGLAS SOLANO Date: 2021-06-14 13:35 Normal [facility] Vital Signs Date Time Vital Sign Value Performing Clinician Debra tolentino 09-23-2023 13:00-0400 Diastolic blood pressure 85 mm[Hg] [facility] 09-23-2023 13:00-0400 Heart rate 69 /min [facility] 09-23-2023 13:00-0400 Mean blood pressure 99 mm[Hg] [facility] 09-23-2023 13:00-0400 Respiratory rate 16 /min [facility] 09-23-2023 13:00-0400 SaO2% (BldA) [Mass fraction] 98 % [facility] 09-23-2023 13:00-0400 Systolic blood pressure 127 mm[Hg] [facility] 09-23-2023 12:00-0400 Diastolic blood pressure 82 mm[Hg] [facility] 09-23-2023 12:00-0400 Heart rate 68 /min [facility] 09-23-2023 12:00-0400 Mean blood pressure 94 mm[Hg] [facility] 09-23-2023 12:00-0400 SaO2% (BldA) [Mass fraction] 96 % [facility] 09-23-2023 12:00-0400 Systolic blood pressure 119 mm[Hg] [facility] 09-23-2023 11:05-0400 gluc 89 mg/dL [facility] 09-23-2023 11:05-0400 gluc [facility] 09-23-2023 10:59-0400 Body temperature 98.6 [degF] [facility] 09-23-2023 10:59-0400 Diastolic blood pressure 96 mm[Hg] [facility] 09-23-2023 10:59-0400 Heart rate 84 /min [facility] 09-23-2023 10:59-0400 Respiratory rate 18 /min [facility] 09-23-2023 10:59-0400 SaO2% (BldA) [Mass fraction] 99 % [facility] 09-23-2023 10:59-0400 Systolic blood pressure 140 mm[Hg] [facility] 01-20-2023 17:00-0500 Body height 176.53 cm Tika Otero Other [facility] Other 01-20-2023 17:00-0500 Body mass index (BMI) [Ratio] 33.85 kg/m2 Tika Otero Other [facility] Other 01-20-2023 17:00-0500 Body temperature 98 [degF] Tika Otero Other [facility] Other 01-20-2023 17:00-0500 Body weight 105.51 kg Tika Otero Other [facility] Other 01-20-2023 17:00-0500 Respiratory rate 18 /min Tika Otero Other [facility] Other 01-20-2023 17:00-0500 SaO2% (BldA) [Mass fraction] 99 % Tika Otero Other [facility] Other 06-11-2022 15:50-0400 Body height 176.53 cm Elise Stone Other [facility] Other 06-11-2022 15:50-0400 Body mass index (BMI) [Ratio] 36.39 kg/m2 Elise Stone Other [facility] Other 06-11-2022 15:50-0400 Body temperature 97.3 [degF] Elise Stone Other [facility] Other 06-11-2022 15:50-0400 Body weight 113.4 kg Elise Stone Other [facility] Other 06-11-2022 15:50-0400 Respiratory rate 18 /min Elise Stone Other [facility] [employer] Other 06-11-2022 15:50-0400 SaO2% (BldA) [Mass fraction] 99 % Elise Stone Other [facility] Other 02-28-2022 15:11-0500 Blood Pressure Location [facility] 02-28-2022 15:11-0500 Diastolic blood pressure 80 mm[Hg] [facility] 02-28-2022 15:11-0500 Heart rate 84 /min [facility] 02-28-2022 15:11-0500 Respiratory rate 18 /min [facility] 02-28-2022 15:11-0500 SaO2% (BldA) [Mass fraction] 96 % [facility] 02-28-2022 15:11-0500 Systolic blood pressure 140 mm[Hg] [facility] 11-19-2021 15:13-0400 Blood Pressure Location [facility] 11-19-2021 15:13-0400 Diastolic blood pressure 75 mm[Hg] [facility] 11-19-2021 15:13-0400 Heart rate 86 /min [facility] 11-19-2021 15:13-0400 Respiratory rate 18 /min [facility] 11-19-2021 15:13-0400 SaO2% (BldA) [Mass fraction] 96 % [facility] 11-19-2021 15:13-0400 Systolic blood pressure 126 mm[Hg] [facility] Encounters Encounter Date Encounter Type Care Provider Facility Start: 10-30-2023 End: 10-30-2023 ambulatory YESICA AICHHOLZ Not Available Start: 10-16-2023 End: 10-16-2023 ambulatory NABEEL MENDENHALL Not Available Start: 09-25-2023 End: 09-25-2023 ambulatory SUNNI VELARDEKarri Not Available Start: 09-24-2023 End: 09-24-2023 ambulatory YESICA AICHHOLZ Not Available Start: 09-23-2023 End: 09-23-2023 Emergency department patient visit [facility] Start: 08-05-2023 End: 08-05-2023 ambulatory YESICA AICHHOLZ Not Available Start: 05-27-2023 End: 05-27-2023 ambulatory ZEESHAN BENSON Not Available Start: 04-29-2023 End: 04-29-2023 ambulatory YESICA AICHHOLZ Not Available Start: 01-20-2023 End: 01-20-2023 ambulatory Tika Otero Other [facility] [employer] Other Start: 01-20-2023 Office outpatient vi sit 15 minutes Tika Otero [facility] [place] Start: 06-28-2022 End: 06-28-2022 ambulatory Ahmad Abbey Facility:[facility] Start: 06-28-2022 End: 06-28-2022 ambulatory Yesica J Devonhstephz Work Phone: [facility] Work Phone: Start: 06-28-2022 End: 06-28-2022 Discharged Recurring Yesica Victorianoholz Work Phone: [facility] Work Phone: Start: 06-11-2022 End: 06-11-2022 ambulatory Elise Stone Other [employer] Other Start: 06-11-2022 Office outpatient ne w 30 minutes Elise Stone [facility] [place] Start: 05-18-2022 End: 05-19-2022 ambulatory SENIOR NATIONAL ACCOUNT MANAGER YESICAWilner NICKERSON Facility:[facility] Start: 04-19-2022 End: 04-20-2022 ambulatory SENIOR NATIONAL ACCOUNT MANAGER YESICA BRANDON Facility:[facility] Start: 02-28-2022 End: 02-28-2022 Patient encounter procedure [facility] Start: 01-11-2022 End: 01-12-2022 ambulatory SENIOR NATIONAL ACCOUNT MANAGER YESICA NICKERSON Facility:[facility] Start: 11-29-2021 End: 03-03-2022 Preprocedural examination done [facility] Start: 11-29-2021 End: 03-03-2022 Recurring [facility] Start: 11-19-2021 End: 11-19-2021 Patient encounter procedure [facility] Start: 08-17-2021 End: 08-17-2021 Patient encounter procedure [facility] Start: 06-15-2021 End: 06-16-2021 ambulatory SENIOR NATIONAL ACCOUNT MANAGER YESICA NICKERSON Facility:[facility] Start: 06-14-2021 End: 06-15-2021 ambulatory SENIOR NATIONAL ACCOUNT MANAGER YESICA BRANDON Facility:[facility] Payers Date Payer Category Payer Self-pay [id number] 1975 Unknown [id number] 1975 Unknown [id number] 1975 Unknown [id number] [id number] 1975 Unknown [id number] 2.16.840.1.412979.3.579.2.59 1975 Unknown [id number] [id number] 1975 Unknown [id number] [id number] 1975 Unknown [id number] [id number] 1975 Unknown [id number] 2.16.840.1.722801.3.579.2.1258 1975 Unknown [id number] 2.16.840.1.934721.3.579.2.125 1975 Unknown [id number] 2.16.840.1.900933.3.579.2.1258 1975 Unknown [id number] 2.16.840.1.106291.3.579.2.1258 1975 Unknown [id number] 2.16.840.1.638473.3.579.2.1258 1975 Unknown [id number] 2.16.840.1.553944.3.579.2.1258 1975 Unknown [id number] 2.16.840.1.984000.3.579.2.1258 1975 Unknown [id number] 2.16.840.1.900508.3.579.2.1259 1959 Unknown [id number] Private Health Insurance [employer] [id number] Unknown [id number] Social History Date Type Detail Facility Tobacco smoking status No Smokin g Status Entered [facility] Sex Assigned At Female [facility] Start: 02-28-2022 Tobacco smoking status Light t obacco smoker (finding) [facility] Start: 1975 Sex Assigned At Female [facility] Functional Status Date Assessment Result Facility 09-23-2023 Functional Status N/A [facility] 02-28-2022 Functional Status No [facility] 11-19-2021 Functional Status N/A [facility] Clinical Notes 06-11-2022 to 09-23-2023 Note Date [...] balance is good. 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 Take [id number] and prescription medicines only as told by [...] provider. Document Revised: 01/08/2021 Document Reviewed: 01/08/2021 [employer] Patient Education 2022 [employer] Follow Up Care 09/23/2023 10:55:56 With:YESICAWilner NICKERSON Address: [address] [place] [id number] [phone] Business (1) When:09/26/2023 12:52:48 [facility] 09-23-2023 Note ED Patient Education Note Neurology [...] is good. ? 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 ? Take [id number] and prescription medicines only as told by [...] provider. Document Revised: 01/08/2021 Document Reviewed: 01/08/2021 [facility] Patient Education ? 2022 [employer] [facility] 01-20-2023 Evaluation note Encounter Date Diagnosis [...] no improvement in 2 to 3 days [facility] Other 04-25-2023 Evaluation note* Encounter Date Diagnosis [...] understanding and is agreeable with treatment plan. [facility] Other Evaluation + Plan note No data available for this section [facility] Future Appointments Appointment Date:02/28/2022 03:15:00 PM Scheduled Provider:Juancarlos Giraldo MD Location:.[facility] Appointment Type:Cardiology [facility] (FT) [facility] assessment information available [facility] Work Phone: [facility] general Narrative - Reported* Type Description Date Medical History Anxiety Medical History History of muscle spasm Medical History acid reflux Surgical History tonsillectomy Surgical History hernia Surgical History cholecystectomy Surgical History oophorectomy Surgical History Tummy Tuck Surgical History lymph node resection left axill vianney Surgical History hysterectomy 04/2019 Surgical History knee surgery 10/2021 Hospitalization History see above [facility] Other [facility] general Narrative - Reported* Type Description Date Medical History Anxiety Medical History History of muscle spasm Medical History acid reflux Medical History high cholesterol Surgical History tonsillectomy Surgical History hernia Surgical History cholecystectomy Surgical History oophorectomy Surgical History Tummy Tuck Surgical History lymph node resection left axill vianney Surgical History hysterectomy 04/2019 Surgical History knee surgery 10/2021 Hospitalization History see above [facility] Other Hospital Discharge instructions No data available for this section [facility] No data available for this section [facility] Summary Purpose Family History No Family History [...] section and content) DATE CREATED AUTHOR 08/02/[address] [facility] dical Specialist DATE CREATED AUTHOR AUTHOR'S ORGANIZ ATION 05/25/2022 [facility] DATE CREATED AUTHOR AUTHOR'S ORGANIZ ATION 07/01/2022 [facility] DATE CREATED AUTHOR AUTHOR'S ORGANIZ ATION 09/25/2023 [facility] DATE CREATED AUTHOR AUTHOR'S ORGANIZ ATION 09/30/2023 [facility] DATE CREATED AUTHOR AUTHOR'S ORGANIZ ATION 11/01/[address] [facility] dical Specialists EPIC Care Team (unrecognized sect ion and content) [...] BE BASED ON THE PRIMARY CLINICAL RECORDS. [employer] provides no warranty or guarantee of the accuracy or completeness of information in this document.
[2023-11-27] MEDS: LIDOCAINE HCL 1% 100 MG/10 ML MDV INJ (08:11)
[2023-11-27] MEDS: 0.9 % SODIUM CHLORIDE 500 ML, LIDOCAINE HCL 20 ML, SODIUM BICARBONATE 10 MEQ INJ (08:12)
[2023-11-27 09:03] VITALS: BP 132/70; PULSE 72; O2SAT 100
== END 2023-11-27 09:07 | disposition home or self-care (01) ==
LOC: VC 07:56
PROVIDERS: PCP Radiology Diagnostic Radiology; Visit Provider Radiology Diagnostic Radiology
DX: I83.813 Varicose veins of bilateral lower extremities with pain (principal)
CPT/HCPCS: 36478

== ENCOUNTER 2023-12-03 08:29 | Outpatient (OUT) | payer BC, SELFPAY ==
[2023-12-03 08:18] VITALS: BMI 33.7
--- NOTE | 2023-12-03 08:18 | VEINCLINIC_ITS ---
Vital Signs 12/03/23 08:18 Height 5 ft 9 in Weight 103.4 kg BMI 33.7 Varicose Veins Patient in today for follow up ultrasound of right lower extremity following EVLT of right GSV completed on 11/27/23. Gabe Zeng MD personally performed the services described in this documentation, as scribed by Nguyen Craven RDMS in my presence and it is both accurate and complete. Nguyen Zeng RDMS, am scribing for, and in the presence of, Dr. Gabe Gutierrez and in the presence of the patient. thigh: bilateral, knee: bilateral, calf: bilateral, ankle: bilateral and simmons: bilateral aching, cramping, sharp and intermittent 8 1 year Worsened in recent months: Yes other (denies) other (daily anti-inflammatory) Reports muscle spasms of leg, limb pain and leg edema (pitting) History of lower extremity trauma: No Superficial thrombophlebitis: No Family history of varicose veins: yes (mother and father) Has patient had previous lower extremity venous surgery: No Patient has previously received the following treatment(s) for lower extremity varicose veins: Reports none Does patient have a history of : yes (grav 3 para 2) Does patient intend to have future pregnancies: no Has patient had lower extremity venous scan with relux testing: Yes Support hose used: Yes (6 months) Prescribed by provider: No Problems walking or doing physical activity: No Do you walk much: Yes Do you stand much: Yes Medication compliance: good Large amounts of Vitamin K: No Review of Systems ROS Narrative Gabe Zeng MD personally performed the services described in this documentation, as scribed by Nguyen Craven RDMS in my presence and it is both accurate and complete. Nguyen Zeng RDMS, am scribing for, and in the presence of, Dr. Gabe Gutierrez and in the presence of the patient. Status of ROS 10 or more systems reviewed and unremark able except as noted in history and below Cardiovascular Reports: edema; Denies: swelling of feet/ankles Musculoskeletal Reports: extremity pain, extremity swelling, joint pain, joint swelling, muscle cramps and muscle weakness Integumentary/Breast Reports: skin pain, skin tenderness and skin swelling [facility] (Updated 11/27/23 @ 07:32 by Kelsi Sal, RN) Phlebitis and thrombophlebitis of superficial vessels of right lower extremity ?I80.01 - Phlebitis and thrombophlebitis of superficial vessels of right lower extremity (ICD-10) Lymphoma of lymph nodes of axilla ?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 - Non-Hodgkin lymphoma, unspecified, lymph nodes of axilla and upper limb (ICD-10) Hemorrhage following tonsillectomy and adenoidectomy ?J95.830 - Postprocedural hemorrhage of a respiratory system organ or structure following a respiratory system procedure (ICD-10) Encounter for cholecystectomy ?Z76.89 - Persons encountering health services in other specified circumstances (ICD-10) Lymphedema ?I89.0 - Lymphedema, not elsewhere classified (ICD-10) Migraines ?G43.909 - Migraine, unspecified, not intractable, without status migrainosus (ICD-10) Gastroesophageal reflux ?K21.9 - Gastro-esophageal reflux disease without esophagitis (ICD-10) Varicose veins of bilateral lower extremities with pain ?I83.813 - Varicose veins of bilateral lower extremities with pain (ICD-10) Hypertension ?I10 - Essential (primary) hypertension (ICD-10) Hypercholesteremia ?E78.00 - Pure hypercholesterolemia, unspecified (ICD-10) Endometriosis ?N80.9 - Endometriosis, unspecified (ICD-10) Surgical History (Updated 08/19/23 @ 10:02 by Kelsi Sal RN) H/O hernia repair ?Z98.890 - Other specified postprocedural states (ICD-10) ?Z87.19 - Personal history of other diseases of the digestive system (ICD-10) H/O arthroscopy of knee ?Z98.890 - Other specified postprocedural states (ICD-10) H/O: hysterectomy ?Z90.710 - Acquired absence of both cervix and uterus (ICD-10) Family History (Updated 08/19/23 @ 10:03 by Kelsi Sal, FERMIN) Mother Family history of cancer Varicose veins of bilateral lower extremities with pain Grandmother Family history of diabetes mellitus Father Family history of hypertension Varicose veins of bilateral lower extremities with pain Son Family history of hypertension Grandfather Family history of stroke Social History (Updated 08/19/23 @ 08:47 by Kelsi Sal, RN) Within the past year, how often did you have a drink containing alcohol: monthly or less Smoking status: Current every day smoker Do you use any of these nicotine containing products: vaping products Non-prescribed substance use: denies use Meds Home Medications and Allergies Home Medications ?Medication ?Instructions ?Recorded ?Confirmed ?Type alprazolam 0.25 mg tablet (Xanax) 0.25 mg PO PRN 08/19/23 08/19/23 History atorvastatin 10 mg tablet 10 mg PO QPM 08/19/23 08/19/23 History hormonal cream 08/19/23 History hydrochlorothiazide 12.5 mg tablet 25 mg PO DAILY 08/19/23 08/19/23 History meloxicam 15 mg tablet 15 mg PO DAILY 08/19/23 08/19/23 History omeprazole 20 mg capsule,delayed 20 mg PO DAILY 08/19/23 08/19/23 History release Allergies Allergy/AdvReac Type Severity Reaction Status Date / Time rofecoxib (From Vioxx) Allergy Unknown Unknown Unverified 08/19/23 08:53 amoxicillin Allergy rash Unverified 08/19/23 08:53 iodine Allergy Rash Unverified 08/19/23 09:58 methylprednisolone Allergy itching Unverified 08/19/23 10:18 paroxetine (From Paxil) Allergy Unknown Unverified 08/19/23 08:53 sertraline (From Zoloft) Allergy Unknown Unverified 08/19/23 08:53 Exam Narrative Exam Narrative: IGabe MD personally performed the services described in this documentation, as scribed by Nguyen Craven RDMS in my presence and it is both accurate and complete. I, Nguyen Craven RDMS, am scribing for, and in the presence of, Dr. Gabe Gutierrez and in the presence of the patient. Constitutional Vital Signs, click to edit/add: Last Vital Signs Pulse 53 L 08/19/23 08:58 Resp 16 08/19/23 08:58 BP 104/72 08/19/23 08:58 Pulse Ox 98 08/19/23 08:58 Documenting provider has reviewed patient's vital signs: yes Common normals: oriented x3 Nutritional appearance: overweight Lymph Lymphatic: no lymphedema noted Cardio Peripheral pulses: posterior tibial pulses present and dorsalis pedis pulses present Extremity General: calf tenderness, edema and other findings Right lower extremity: lower leg Right lower leg: inspection and palpation Left lower extremity: lower leg Left lower leg: inspection and palpation Neuro Common normals: oriented x3 Results Imaging Venous US: Radiologist's impression: Heat induced thrombus in right GSV 1.1 cm from SFJ and extends to mid calf. Gabe Zeng MD personally performed the services described in this documentation, as scribed by Nguyen Craven RDMS in my presence and it is both accurate and complete. Nguyen Zeng RDMS, am scribing for, and in the presence of, Dr. Gabe Gutierrez and in the presence of the patient. Assessment and Plan Assessment and Plan (1) Phlebitis and thrombophlebitis of superficial vessels of right lower extremity: Plan Plan is for patient to return for Varithena/microfoam of right leg on 12/11/23. Gabe Zeng MD personally performed the services described in this documentation, as scribed by Nguyen Craven RDMS in my presence and it is both accurate and complete. Nguyen Zeng RDMS, am scribing for, and in the presence of, Dr. Gabe Gutierrez and in the presence of the patient.
--- NOTE | 2023-12-03 08:29 | VEIN_ITS ---
Patient Name: AUDREY MUÑOZ MR#: [id number] : 1975 Exam Date: 12/03/2023 Ordering Doctor: DR JONATHAN MAS M.D. RADIOLOGY REPORT PROCEDURE: VC EXT VENOUS RT LMTD COMPARISON: None. INDICATIONS: I80.01 - Phlebitis and thrombophlebitis of superficial veins right leg TECHNIQUE: Lower extremity carver scale and Duplex Doppler evaluation of the deep venous system from the inguinal ligament through the calf veins. FINDINGS: REGION: Right lower extremity. THROMBI: Negative for DVT. Heat induced thrombus in right GSV 1.1 cm to mid lower leg. COMPRESSIBILITY: Non-compressible segments corresponding to thrombus FLOW: Areas of no flow corresponding to thrombus CONCLUSION: Post ablation occlusion of the right great saphenous vein with heat induced thrombus 1.1 cm from the saphenofemoral junction Dictated by: Gabe Gutierrez MD on 12/03/2023 at 08:58 Approved by: Gabe Gutierrez MD on 12/03/2023 at 08:58
--- NOTE | 2023-12-03 08:29 | VEIN_ITS ---
Patient Name: AUDREY MUÑOZ MR#: [id number] : 1975 Exam Date: 12/03/2023 Ordering Doctor: DR JONATHAN MAS M.D. RADIOLOGY REPORT PROCEDURE: FACILITY EST [facility] - OFFICE VISIT FOLLOW UP COMPARISON: None. PROGRESS NOTES: The patient reports mild discomfort of the medial right thigh following right great saphenous vein intravenous laser ablation. The patient has worn a compression stocking. The patient did oral analgesics. The patient has tried exercise. Physical exam demonstrates 3 areas of bruising in the medial right thigh likely related to tumescence injection measuring to 2 cm in diameter. The incision is healed. No erythema warmth to suggest cellulitis or thrombophlebitis. No active ulceration Review of the ultrasound performed the same day demonstrates occlusive thrombus extending throughout the treated right great saphenous vein with heat induced thrombus 1.1 cm from the saphenofemoral junction. The patient expressed a desire to proceed with treatment of incompetent right leg varicose veins with micro foam chemical ablation. VEIN/ Facility EST TD IMPRESSION: 1. Successful ablation of the right great saphenous vein 2. Persistent incompetent right leg varicose veins. PLAN: Micro foam chemical ablation right incompetent varicose veins Nurse notes, history and physical were reviewed and confirmed, see attached forms. The nurse was present throughout the physical exam and consultation Dictated by: Gabe Gutierrez MD on 12/03/2023 at 09:06 Approved by: Gabe Gutierrez MD on 12/03/2023 at 09:07
--- OUTSIDE RECORDS SUMMARY | 2023-12-03 08:31 | XMS_ITS | CCD ---
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 Name Role Phone YESICA NICKERSON Primary Care Physician AICHHOLZ, LIFE AGENT YESICA Primary Care Unavailable AICHHOLZ, LIFE AGENT YESICA Admitting Unavailable DR DOUGLAS SOLANO V Consulting Unavailable AICHHOLZ, LIFE AGENT YESICA Attending Unavailable AICHHOLZ, LIFE AGENT YESICA Consulting Unavailable AICHHOLZ, LIFE AGENT YESICA Attending Unavailable AICHHOLZ, LIFE AGENT YESICA Consulting Unavailable AICHHOLZ, LIFE AGENT YESICA Primary Care Unavailable AICHHOLZ, LIFE AGENT YESICA Admitting Unavailable AICHHOLZ, LIFE AGENT YESICA Attending Unavailable AICHHOLZ, LIFE AGENT YESICA Consulting Unavailable AICHHOLZ, LIFE AGENT YESICA Primary Care Unavailable AICHHOLZ, LIFE AGENT YESICA Admitting Unavailable AICHHOLZ, LIFE AGENT YESICA Attending Unavailable AICHHOLZ, LIFE AGENT YESICA Consulting Unavailable AICHHOLZ, LIFE AGENT YESICA Primary Care Unavailable AICHHOLZ, LIFE AGENT YESICA Admitting Unavailable DR BEN HOLLINGSWORTH Consulting Unavailable AICHHOLZ, LIFE AGENT YESICA Consulting Unavailable AICHHOLZ, LIFE AGENT YESICA Primary Care Unavailable AICHHOLZ, LIFE AGENT YESICA Admitting Unavailable AICHHOLZ, LIFE AGENT YESICA Attending Unavailable Elise Stone Unavailable MD [...] [amoxicillin] Drug Allergy 3 Unknown (qualifier value) [facility] (6 sources) Iodine; Translations: [iodine containing compounds] Drug allergy Eruption of skin (disorder) [facility] (7 sources) PARoxetine; Translations: [paroxetine] Drug Allergy 3 Unknown (qualifier value) [facility] (7 sources) Povidone-Iodine; Translations: [povidone iodine topical] Drug Allergy 3 Unknown (qualifier value) [facility] (7 sources) rofecoxib; Translations: [rofecoxib] Drug Allergy 3 Unknown (qualifier value) [facility] (7 sources) Sertraline; Translations: [sertraline] Drug Allergy 3 Unknown (qualifier value) [facility] (1 source) Adhesive agent Drug allergy (disorder) [facility] (4 sources) Iodine Drug Allergy 3 burning sensation, Redness of Skin [facility] (1 source) Latex Drug allergy (disorder) [facility] (2 sources) Cortisone; Translations: [cortisone] Drug Allergy 3 Itching [facility] (1 source) Amoxicillin Drug Allergy 3 [facility] (1 source) Iodine Drug Allergy 3 [facility] (1 source) PARoxetine Drug Allergy 3 [facility] (1 source) Povidone-Iodine Drug Allergy 3 [facility] (1 source) rofecoxib Drug Allergy 3 [facility] (1 source) Sertraline Drug Allergy 3 [facility] Medications Current Medications Medication [...] In 3 days 09/26/2023 EDT [address] [place] [address] [phone] Business (1) Additional Instructions: Patient Education Dizziness [...] made to ensure accuracy, however, inadvertently computerized storage center manager mistakes may be present. Appropriate healthcare PPE [...] compounds (Rash) (more content not included)... Normal [facility] Comment on above: Result Comment: Elec tronically Signed By: Fadi Mccoy PA-C\.br\Date and Time Signed: 09/23/23 12:54 EDT\.br\Electronically Co-Signed By: Boby Cevallos DO\.br\Date and Time Co-Signed: 09/29/23 09:31 EDT BB Draw & Holdon 09-23-2023 BB D&H Sample drawn for Blood Ba Normal [facility] Comment on above: Performed By: #### 1 [id number] #### [facility] [address] [place] [address] CBC w/ Auto Diffon 4 Basophils/100 WBC (Bld) 0.6 % Normal 0.0-2.0 [facility] Comment on above: Performed By: #### 2 [id number] #### [facility] [address] [place] [address] Basophils/Leukocytes Auto (Bld) [Pure # fraction] 0.0 E9/L Normal 0.0-0.2 [facility] Comment on above: Performed By: #### 2 [id number] #### [facility] [address] [place] [address] Eosinophils (Bld) [#/Vol] 0.0 E9/L Normal 0.0-0.5 [facility] Comment on above: Performed By: #### 2 [id number] #### [facility] [address] [place] [address] Eosinophils/100 WBC (Bld) 0.6 % Normal 0.0-8.0 [facility] Comment on above: Performed By: #### 2 [id number] #### [facility] [address] [place] [address] Erythrocyte distribution width (RBC) [Ratio] 12.8 % Normal 10.9-14.2 [facility] Comment on above: Performed By: #### 2 [id number] #### [facility] [address] [place] [address] Hematocrit (Bld) [Volume fraction] 42.7 % Normal 34.0-46.0 [facility] Comment on above: Performed By: #### 2 [id number] #### [facility] [address] [place] [address] Hemoglobin (Bld) [Mass/Vol] 14.7 g/dL Normal 12.0-16.0 [facility] Comment on above: Performed By: #### 2 [id number] #### [facility] [address] [place] [address] Lymphocytes (Bld) [#/Vol] 1.8 E9/L Normal 1.0-4.0 [facility] Comment on above: Performed By: #### 2 [id number] #### [facility] [address] [place] [address] Lymphocytes/100 WBC (Bld) 30.1 % Normal 14.0-50.0 [facility] Comment on above: Performed By: #### 2 [id number] #### [facility] [address] [place] [address] MCH (RBC) [Entitic mass] 29.9 pg Normal 27.0-34.0 [facility] Comment on above: Performed By: #### 2 [id number] #### [facility] [address] [place] [address] MCHC (RBC) [Mass/Vol] 34.4 g/dL Normal 31.4-36.0 [facility] Comment on above: Performed By: #### 2 [id number] #### [facility] [address] [place] [address] MCV (RBC) [Entitic vol] 86.8 fL Normal 80.0-100.0 [facility] Comment on above: Performed By: #### 2 [id number] #### [facility] [address] [place] [address] Monocytes (Bld) [#/Vol] 0.4 E9/L Normal 0.2-1.0 [facility] Comment on above: Performed By: #### 2 [id number] #### [facility] [address] [place] [address] Neutrophils (Bld) [#/Vol] 3.7 E9/L Normal 2.0-7.5 [facility] Comment on above: Performed By: #### 2 [id number] #### [facility] [address] [place] [address] Neutrophils/100 WBC (Bld) 61.2 % Normal 36.0-75.0 [facility] Comment on above: Performed By: #### 2 [id number] #### [facility] [address] [place] [address] Platelet mean volume (Bld) [Entitic vol] 9.4 fL Normal 6.4-10.8 [facility] Comment on above: Performed By: #### 2 [id number] #### [facility] [address] [place] [address] Platelets (Bld) [#/Vol] 184.0 E9/L Normal 150.0-500.0 [facility] Comment on above: Performed By: #### 2 [id number] #### [facility] [address] [place] [address] RBC (Bld) [#/Vol] 4.9 E12/L Normal 4.3-5.9 [facility] Comment on above: Performed By: #### 2 [id number] #### [facility] [address] [place] [address] WBC corrected for nucl RBC Auto (Bld) [#/Vol] 6.0 E9/L Normal 4.0-11.0 [facility] Comment on above: Performed By: #### 2 [id number] #### [facility] [address] [place] [address] CHEMISTRYOrdered By: SYSTEM SYSTEM on 09-23-2023 Albumin [...] Sensitivity Troponin I Instructions For Use, Angel Trenton, September 2017) Urea nitrogen [Mass/Vol] 24 mg/dL High 5 - 21 mg/dL Remisol Chem Urea nitrogen/Creatinine [Mass ratio] 27 mg/mg High 10 - 20 Remisol Chem CHEMISTRYOrdered By: Lab ROP User on 09-23-2023 Glucose [Mass/Vol] 89 mg/dL Normal 55 - 99 mg/dL [facility] POC Subsection Comment on above: Result Comment: Trixie dominique Meter POC Device SN [id number] Invalid Interpretation Code [facility] POC Subsection POC User ID [id number] 1 Invalid Interpretation Code [facility] POC Subsection POC Username SANG HEBERT Invalid Interpretation Code [facility] POC Subsection CMPon 09-23-2023 Albumin [Mass/Vol] 4.7 g/dL Normal 3.3-5.0 [facility] Comment on above: Performed By: #### 2 [id number] #### [facility] [address] [place] [address] Albumin/Globulin (S) [Mass conc ratio] 2.0 Normal 1.1-2.2 [facility] Comment on above: Performed By: #### 2 [id number] #### [facility] [address] [place] [address] ALP [Catalytic activity/Vol] 47 Int._Unit/L Normal 21-98 [facility] Comment on above: Performed By: #### 2 [id number] #### [facility] [address] [place] [address] ALT No additional P-5'-P [Catalytic activity/Vol] 22 Int._Unit/L Normal 6-46 [facility] Comment on above: Performed By: #### 2 [id number] #### [facility] [address] [place] [address] Anion gap [Moles/Vol] 10 mmol/L Normal 6-16 [facility] Comment on above: Performed By: #### 2 068010 #### [facility] [address] [place] [address] AST [Catalytic activity/Vol] 19 Int._Unit/L Normal 5-43 [facility] Comment on above: Performed By: #### 2 [id number] #### [facility] [address] [place] [address] Bilirubin [Mass/Vol] 0.4 mg/dL Normal 0.0-1.1 [facility] Comment on above: Performed By: #### 2 [id number] #### [facility] [address] [place] [address] Calcium [Mass/Vol] 9.9 mg/dL Normal 8.9-11.1 [facility] Comment on above: Performed By: #### 2 426256 #### [facility] [address] [place] [address] Chloride [Moles/Vol] 104 mmol/L Normal 101-111 [facility] Comment on above: Performed By: #### 2 [id number] #### [facility] [address] [place] [address] CO2 [Moles/Vol] 31 mmol/L Normal 21-31 [facility] Comment on above: Performed By: #### 2 003805 #### [facility] [address] [place] [address] Creatinine [Mass/Vol] 0.9 mg/dL Normal 0.5-1.3 [facility] Comment on above: Performed By: #### 2 806292 #### [facility] [address] [place] [address] Globulin (S) [Mass/Vol] 2.4 g/dL Normal 1.4-4.0 [facility] Comment on above: Performed By: #### 2 988873 #### [facility] [address] [place] [address] Glucose [Mass/Vol] 101 mg/dL Normal 55-199 [facility] Comment on above: Performed By: #### 2 712843 #### [facility] [address] [place] [address] Potassium [Moles/Vol] 3.5 mmol/L Normal 3.5-5.3 [facility] Comment on above: Performed By: #### 2 963511 #### [facility] [address] [place] [address] Protein [Mass/Vol] 7.1 g/dL Normal 6.0-7.8 [facility] Comment on above: Performed By: #### 2 978405 #### [facility] [address] [place] [address] Sodium [Moles/Vol] 141 mmol/L Normal 135-145 [facility] Comment on above: Performed By: #### 2 630567 #### [facility] [address] [place] [address] Urea nitrogen [Mass/Vol] 24 mg/dL High 5-21 [facility] Comment on above: Performed By: #### 2 259856 #### [facility] [address] [place] [address] Urea nitrogen/Creatinine [Mass ratio] 27 No Units High 10-20 [facility] Comment on above: Performed By: #### 2 [id number] #### [facility] [address] [place] [address] COAGULATIONOrdered By: Abigail Robles on 09-23-2023 aPTT Coag (PPP) [Time] 35.1 s Normal 25.1 - 36.5 second(s) [facility] Auto Coag Comment on above: Interpretive Data: [...] the same coagulation reagent and instrumentation as [facility]. Currently there are no coagulation studies available worldwide for children to 14 days, and no normal ranges. Heparin therapeutic range (represented by Anti-Factor Xa activity of 0.2 - 0.4 U/mL) corresponds to PTT of 56.6 - 109.0 sec. INR Coag (PPP) [Relative time] 1.01 {INR} Invalid Interpretation Code [facility] Auto Coag Comment on above: Interpretive Data: I NR results are specifically intended to assess patients stabilized on long-term Anticoagulation therapy suggested INR s Less Intensive Anticoagulation 2.0 3.0 Conventional Range 3.0 4.5 PT Coag (PPP) [Time] 11.3 s Normal 9.4 - 1 2.5 second(s) [facility] Auto Coag Comment on above: Interpretive Data: [...] the same coagulation reagent and instrumentation as [facility]. Currently there are no coagulation studies available [...] Eliu Zhao M.D. neg for bleed. Normal [facility] Capillary Glucose POCon Glucose [Mass/Vol] 89 mg/dL Normal 55-99 [facility] Comment on above: Result Comment: Trixie fox Meter Performed By: #### 2 [id number] #### [facility] [address] [place], [place] [id number] ED Clinical Summaryon 2023 ED Clinical Summary ED Clinical Summary [address] [address] ED Clinical Summary Person Information Name: AUDREY MUÑOZ Mari[facility] Age: 48 Years : 1975 Sex: Female Language: Turkmen PCP: YESICA NICKERSON CNP Marital Status: Visit [...] 09/23/2023 13:01:25 09/23/2023 13:01:25 09/23/2023 13:01:25 ADDRESS: [address] [place] [phone] PHYS DOC NOTES: MEDICAL INFORMATION: Prescriptions Given: Medications to Continue with No Changes Other Medications alprazolam (alprazolam 0.25 mg Tab) 30 tab(s). metaxalone (metaxalone 800 mg Tab) omeprazole (omeprazole 40 mg Cap-DR) 30 EA, TAKE 1 CAPSULE BY MOUTH EVERY DAY. PATIENT EDUCATION INFORMATION: Instructions: Dizziness Follow up: With: Address: When: YESICA NICKERSON [address] [place], [place] [phone] Business (1) In 3 days 09/26/2023 DIAGNOSIS: Dizziness; Weakness Normal [facility] ED Patient Summaryon ED Patient Summary ED Patient Summary [address] [address] Patient Discharge Instructions Person Information Name: AUDREY MUÑOZ Age: 48 Years Arrival Date: 09/23/2023 10:54:19 Discharge Diagnosis: Dizziness; Weakness Primary Care Physician: YESICA NICKERSON CNP Provider Information Primary Provider: Boby Cevallos DO [facility] Rn:Fadi Mccoy PA-C The exam and treatment you received in the Emergency Department were for an urgent problem and are not intended as complete care. It is important that you follow up with a doctor, nurse practitioner, or physician?s public health training assistant for ongoing care. If your symptoms become [...] With: Address: When: YESICA NICKERSON [address] [place], [place] [phone] Business (1) In 3 days 09/26/2023 In the event that this physician does not participate in your insurance network, please consult with your insurance company to find a nearby participating provider. Patient Education Materials: Dizziness A MESSAGE TO ALL PATIENTS REGARDING OPIOIDS PRESCRIPTION OPIOIDS: WHAT YOU NEED TO KNOW Prescription opioids can be used to help relieve sijtppyo-db-hlyxip pain and are often prescribed following a [...] be struggling with addiction, tell your health care associate and ask for guidance or call [facility] National Helpline at 0-588-611-AKE (more content not included)... Normal [facility] HEMATOLOGYOrdered By: Siobhan Robles on 09-23-2023 Basophils/100 [...] Coag (PPP) [Time] 35.1 second(s) Normal 25.1-36.5 [facility] Comment on above: Result Comment: Para meter [...] the same coagulation reagent and instrumentation as [facility]. Currently there are no coagulation studies available worldwide for children to 14 days, and no normal ranges. Heparin therapeutic range (represented by Anti-Factor Xa activity of 0.2 - 0.4 U/mL) corresponds to PTT of 56.6 - 109.0 sec. Performed By: #### 1 [id number] #### [facility] [address] [place] [address] INR Coag (PPP) [Relative time] 1.01 {INR} Invalid Interpretation Code [facility] Comment on above: Result Comment: INR results are specifically intended to assess patients stabilized on long-term Anticoagulation therapy suggested INR?s ?Less Intensive Anticoagulation? 2.0 ? 3.0 Conventional Range 3.0 ? 4.5 Performed By: #### 1 [id number] #### [facility] [address] [place] [address] PT Coag (PPP) [Time] 11.3 second(s) Normal 9.4-12.5 [facility] Comment on above: Result Comment: 15 d [...] the same coagulation reagent and instrumentation as [facility]. Currently there are no coagulation studies available worldwide for children to 14 days, and no normal ranges. Performed By: #### 1 [id number] #### [facility] [address] [place] [address] Troponin 0 Hr.on 09-23-2023 Troponin HS <2.30 Low 10.10-27.10 [facility] Comment on above: Result Comment: The 95% CI (Confidence Interval) PPV (Positive Predictive Value) for myocardial infarction in females is 38 pg/mL, in males 51 pg/mL. The results should be used in conjunction with clinical conditions of myocardial infarction. (Access High Sensitivity Troponin I Instructions For Use, Angel Trenton, September 2017) Performed By: #### 1 [id number] #### [facility] [address] [place] [address] UA with Cult Rflxon 09-23-19 24 Bilirubin Ql (U) Negative Normal Negative [facility] Comment on above: Performed By: #### 4 [id number] #### [facility] [address] [place] [address] Clarity (U) Clear Normal Clear [facility] Comment on above: Performed By: #### 4 [id number] #### [facility] [address] [place] [address] Color (U) Light-Yellow Normal Yellow [facility] Comment on above: Result Comment: Micr oscopic readings are only performed on those samples that meet specific criteria set forth by [facility]. Performed By: #### 4 [id number] #### [facility] [address] [place] [address] Glucose Ql (U) Negative Normal Negative [facility] Comment on above: Performed By: #### 4 [id number] #### [facility] [address] [place] [address] Hemoglobin Auto test strip (U) [Mass/Vol] Negative Normal Negative [facility] Comment on above: Performed By: #### 4 [id number] #### [facility] [address] [place] [address] Ketones Auto test strip Ql (U) Negative Normal Negative [facility] Comment on above: Performed By: #### 4 [id number] #### [facility] [address] [place] [address] Leukocyte esterase Auto test strip Ql (U) Negative Normal Negative [facility] Comment on above: Performed By: #### 4 [id number] #### [facility] [address] [place] [address] Nitrite Auto test strip Ql (U) Negative Normal Negative [facility] Comment on above: Performed By: #### 4 [id number] #### [facility] [address] [place] [address] pH (U) 5.5 [pH] Invalid Interpretation Code 5.0-9.0 [facility] Comment on above: Performed By: #### 4 [id number] #### [facility] [address] [place] [address] Protein Ql (U) Negative Normal Negative [facility] Comment on above: Performed By: #### 4 [id number] #### [facility] [address] [place] [address] Specific gravity (U) [Rel density] 1.023 Invalid Interpretation Code 1.005-1.030 [facility] Comment on above: Performed By: #### 4 [id number] #### [facility] [address] [place] [address] Urobilinogen (U) [Mass/Vol] Negative Normal Negative [facility] Comment on above: Performed By: #### 4 [id number] #### [facility] [address] [place] [address] Type of Urine collection method Clean Catch Normal [facility] Comment on above: Performed By: #### 4 [id number] #### [facility] [address] [place] [address] URINALYSISOrdered By: SYSTEM SYSTEM on 09-23-2023 Bilirubin Ql (U) Negative Normal Negativemg/ d L FT UA Auto SS Clarity (U) Clear (09/23/23 12:16 PM) Normal Clear [facility] UA Auto SS Color (U) Light-Yellow 1 (09/23/23 12:16 PM) Normal Yellow [facility] UA Auto SS Comment on above: Interpretive Data: M icroscopic readings are only performed on those samples that meet specific criteria set forth by [facility]. Glucose Ql (U) Negative Normal Negativemg/d [...] mGy = na DAP = na Normal [facility] eGFRon 09-23-2023 eGFR 79 mL/min/1.73 m2 Normal >=59 [facility] Comment on above: Order Comment: Order added by Discern Expert. Performed By: #### 1 [id number] #### [facility] [address] [id number] COVID Quick Testingon 2022 Result Positive Powered Other Cortisol, ACTH Stimulationon 06-28-2022 Cortisol, ACTH Stimulation Normal [facility] Comment on above: Result Comment: [employer] 11.4 Col: 06/28/22 1000 [employer] 30Min 20.6 Col: 06/28/22 1050 [place] 60Min 23.2 Col: 06/28/22 1120 PERFORMED BY: [place] [address] PATHOLOGIST MILANESE KNITTING MACHINE OPERATOR LYDIA JACKSNO M.D. Performed By: #### C ORT STIMULAT #### [address] No Panel InformationOrdered By: Gopal Potter on 06-28-2022 Cortisol Response to Stimulation See comment [facility] Comment on above: [employer] 11.4 Col: 06/28/22 1000 [place] 30Min 20.6 Col: 06/28/22 1050 [place] 60Min 23.2 Col: 06/28/22 1120 Quick Strepon 06-11-2022 S. pyogenes Org specific cx Ql (Throat) Negative [facility] [employer] Other Quick Strep [facility]free [facility] [employer] Other PROF CHEM 8 (BAS METB)on Anion gap [Moles/Vol] 10.7 mmol/L Normal [facility] Comment on above: Performed By: #### B MP #### [facility] [address] [address] [address] Brandon Hodges Calcium [Mass/Vol] 9.3 mg/dL Normal 8.5-10.1 [facility] Comment on above: Performed By: #### B MP #### [facility] [address] [address] [address] Brandon Hodges Chloride [Moles/Vol] 103 mmol/L Normal 98-107 [facility] Comment on above: Performed By: #### B MP #### [facility] [address] [address] [address] Brandon Hodges CO2 [Moles/Vol] 31.5 mmol/L Normal 21.0-32.0 [facility] Comment on above: Performed By: #### B MP #### [facility] [address] [place] [address] Dr. Brandon Hodges Creatinine [Mass/Vol] 0.76 mg/dL Normal 0.55-1.02 [facility] Comment on above: Performed By: #### B MP #### [facility] [address] [address] [address] Brandon Hodges EGFR-AF SALVADOREAN >60 Normal >=60 [facility] Comment on above: Performed By: #### B MP #### [facility] [address] [address] [address] Brandon Hodges EGFR-NON AF SALVADOREAN >60 Normal >=60 [facility] Comment on above: Performed By: #### B MP #### [facility] [address] [place] [address] Dr. Brandon Hodges Glucose [Mass/Vol] 124 mg/dL Critically high 74-106 [facility] Comment on above: Performed By: #### B MP #### [facility] [address] [address] [address] Brandon Hodges Potassium [Moles/Vol] 4.2 mmol/L Normal 3.5-5.1 [facility] Comment on above: Performed By: #### B MP #### [facility] [address] [address] [address] Brandon Hodges Sodium [Moles/Vol] 141 mmol/L Normal 136-145 [facility] Comment on above: Performed By: #### B MP #### [facility] [address] [address] [address] Brandon Hodges Urea nitrogen [Mass/Vol] 19.0 mg/dL Critically high 7.0-18.0 [facility] Comment on above: Performed By: #### B MP #### [facility] [address] [address] [address] Brandon Hodges Urea nitrogen/Creatinine [Mass ratio] 25.0 mg/mg Normal [facility] Comment on above: Performed By: #### B MP #### [facility] [address] [address] [address] Brandon Hodges TESTOSTERONE, FREE,DIRECT, T OTALon 04-25-2022 Free Testosterone(Direct) <0.2 Normal 0.0-4.2 [facility] Comment on above: Result Comment: Perf ormed at: BN Performed By: #### I NSULIN #### [facility] [address] [address] [address] Brandon Hodges Testosterone [Mass/Vol] 3 ng/dL Critically low 4-50 [facility] Comment on above: Result Comment: Perf ormed at: CB Performed By: #### I NSULIN #### [facility] [address] [place] [address] Dr. Brandon Hodges ESTRONEon 04-23-2022 Estrone, Serum 20 pg/mL Normal [facility] Comment on above: Result Comment: Rang e Adult (Premenopausal) 27 - 231 Menstrual Cycle (1-10 days) 19 - 149 Menstrual Cycle (11-20 days) 32 - 176 Menstrual Cycle (21-30 days) 37 - 200 Adult (Postmenopausal) 0 - 125 Performed By: #### I NSULIN #### [facility] [address] [place] [address] Dr. Brandon Hodges REVERSE T3on 04-23-2022 Reverse T3, Serum 36.8 ng/dL Critically high 9.2-24.1 Th e [facility] Comment on above: Result Comment: This test was developed and its performance characteristics determined by [employer]. It has not been cleared or approved by the Food and Drug Administration. Performed By: #### B MP #### [facility] [address] [place] [address] Dr. Brandon Hodges CORTISOLon 04-20-2022 Cortisol 1.0 ug/dL Normal [facility] Comment on above: Result Comment: [place] isol AM 6.2 - 19.4 Cortisol PM 2.3 - 11.9 Performed By: #### C ORTISO #### [facility] [address] [place] [address] Dr. Brandon Hodges DHEA-SULFATEon 04-20-2022 DHEA-Sulfate 55.9 ug/dL Normal 41.2-243.7 [facility] Comment on above: Performed By: #### I NSULIN #### [facility] [address] [place] [address] Dr. Brandon Hodges ESTRADIOLon 04-20-2022 Estradiol 25.1 pg/mL Normal [facility] Comment on above: Result Comment: Adul t Female: Follicular phase 12.5 - 166.0 Ovulation phase 85.8 - 498.0 Luteal phase 43.8 - 211.0 Postmenopausal <6.0 - 54.7 1st trimester 215.0 - >4300.0 Jason ECLIA methodology Performed By: #### B MP #### [facility] [address] [place] [address] Dr. Brandon Hodges INSULINon 04-20-2022 Insulin 30.0 uIU/mL Critically high 2.6-24.9 [facility] Comment on above: Performed By: #### I NSULIN #### [facility] [address] [place] [address] Dr. Brandon Hodges PROGESTERONEon 04-20-2022 Progesterone <0.1 Normal [facility] Comment on above: Result Comment: Foll icular phase 0.1 - 0.9 Luteal phase 1.8 - 23.9 Ovulation phase 0.1 - 12.0 First trimester 11.0 - 44.3 Second trimester 25.4 - 83.3 Third trimester 58.7 - 214.0 Postmenopausal 0.0 - 0.1 Performed By: #### B MP #### [facility] [address] [place] [address] Dr. Brandon Hodges SEX HORMONE-BINDING GLOBULIN on 04-20-2022 Sex Horm Binding Glob, Serum 30.3 nmol/L Normal 24.6-122.0 [facility] Comment on above: Performed By: #### B MP #### [facility] [address] [place] [address] Dr. Brandon Hodges FERRITINon 04-19-2022 Ferritin [Mass/Vol] 53.0 ng/mL Normal 6.2-137.0 [facility] Comment on above: Performed By: #### B MP #### [facility] [address] [place] [address] Dr. Brandon Hodges FREE T3on 04-19-2022 FREE T3 2.34 pg/mlL Normal 2.18-3.98 [facility] Comment on above: Performed By: #### T SH, T4, FT3, BMP, LIPID, LIVER #### [facility] [address] [place] [address] Dr. Brandon Hodges FREE T4on 04-19-2022 Free T4 [Mass/Vol] 0.92 ng/dL Normal 0.76-1.46 [facility] Comment on above: Performed By: #### B MP #### [facility] [address] [place] [address] Dr. Brandon Hodges GLYCOHEMOGLOBIN A1Con 2022 ADA RECOMMENDATION SEE BELOW Normal [facility] Comment on above: Result Comment: ADA RECOMMENDED LIMIT 4.0 - 6.0 ADA THERAPEUTIC TARGET < 7.0 ACTION SUGGESTED > 7.0 Performed By: #### A 1C #### [facility] [address] [place] [address] Dr. Brandon Hodges Glucose [Mass/Vol] 105 mg/dL Normal [facility] Comment on above: Performed By: #### A 1C #### [facility] [address] [address] [address] Brandon Hodges HbA1c (Bld) [Mass fraction] 5.3 % Normal 4.5-6.2 [facility] Comment on above: Performed By: #### A 1C #### [facility] [address] [address] [address] Brandon Hodges LIPID PROFILEon 04-19-2022 CHOL-HDL RATIO NORM SEE BELOW Normal [facility] Comment on above: Result Comment: 3.3 - 4.4 LOW RISK 4.4 - 7.1 AVERAGE RISK 7.1 - 11.0 MODERATE RISK >11.0 HIGH RISK Performed By: #### T SH, T4, FT3, BMP, LIPID, LIVER #### [facility] [address] [place] [address] Dr. Brandon Hodges Cholesterol [Mass/Vol] 258 mg/dL Critically high <=200 [facility] Comment on above: Performed By: #### T SH, T4, FT3, BMP, LIPID, LIVER #### [facility] [address] [place] [address] Dr. Brandon Hodges Cholesterol in HDL [Mass/Vol] 47 mg/dL Normal 40-60 [facility] Comment on above: Performed By: #### T SH, T4, FT3, BMP, LIPID, LIVER #### [facility] [address] [place] [address] Dr. Brandon Hodges Cholesterol in LDL [Mass/Vol] 199.0 mg/dL Normal [facility] Comment on above: Performed By: #### T SH, T4, FT3, BMP, LIPID, LIVER #### [facility] [address] [place] [address] Dr. Brandon Hodges Cholesterol.total/Chol esterol in HDL [Mass ratio] 5.5 {ratio} Normal [facility] Comment on above: Performed By: #### T SH, T4, FT3, BMP, LIPID, LIVER #### [facility] [address] [address] [address] Brandon Hodges HDL NORMAL > or = 60 mg/dl - LOW CARDIOVASCULAR RISK <40 mg/dl - HIGH CARDIOVASCULAR RISK Normal [facility] Comment on above: Performed By: #### T SH, T4, FT3, BMP, LIPID, LIVER #### [facility] [address] [address] [address] Brandon Hodges LDL CALC NORMAL SEE BELOW Normal [facility] Comment on above: Result Comment: <100 mg/dl OPTIMAL 100 - 129 mg/dl NEAR OR ABOVE OPTIMAL 130 - 159 mg/dl BORDERLINE HIGH 160 - 189 mg/dl HIGH >190 mg/dl VERY HIGH Performed By: #### T SH, T4, FT3, BMP, LIPID, LIVER #### [facility] [address] [address] [address] Brandon Hodges Triglyceride [Mass/Vol] 60 mg/dL Normal <=150 [facility] Comment on above: Performed By: #### T SH, T4, FT3, BMP, LIPID, LIVER #### [facility] [address] [place] [address] Dr. Brandon Hodges VLDL CALC 12.0 mg/dL Normal [facility] Comment on above: Performed By: #### T SH, T4, FT3, BMP, LIPID, LIVER #### [facility] [address] [address] [address] Brandon Hodges LIVER PROFILEon 04-19-2022 Albumin [Mass/Vol] 4.3 g/dL Normal 3.4-5.0 [facility] Comment on above: Performed By: #### T SH, T4, FT3, BMP, LIPID, LIVER #### [facility] [address] [address] [address] Brandon Hodges Albumin/Globulin [Mass ratio] 1.3 {ratio} Normal [facility] Comment on above: Performed By: #### T SH, T4, FT3, BMP, LIPID, LIVER #### [facility] [address] [address] [address] Brandon Hodges ALP [Catalytic activity/Vol] 86 U/L Normal 46-116 [facility] Comment on above: Performed By: #### T SH, T4, FT3, BMP, LIPID, LIVER #### [facility] [address] [place] [address] Dr. Brandon Hodges ALT [Catalytic activity/Vol] 31 U/L Normal 14-59 [facility] Comment on above: Performed By: #### T SH, T4, FT3, BMP, LIPID, LIVER #### [facility] [address] [place] [address] Dr. Brandon Hodges AST [Catalytic activity/Vol] 18 U/L Normal 15-37 [facility] Comment on above: Performed By: #### T SH, T4, FT3, BMP, LIPID, LIVER #### [facility] [address] [place] [address] Dr. Brandon Hodges BILI, CONJUGATED <0.1 Normal 0.0-0.2 [facility] Comment on above: Performed By: #### T SH, T4, FT3, BMP, LIPID, LIVER #### [facility] [address] [place] [address] Dr. Brandon Hodges Bilirubin [Mass/Vol] 0.3 mg/dL Normal 0.2-1.0 [facility] Comment on above: Performed By: #### T SH, T4, FT3, BMP, LIPID, LIVER #### [facility] [address] [place] [address] Dr. Brandon Hodges Globulin (S) [Mass/Vol] 3.4 g/dL Normal [facility] Comment on above: Performed By: #### T SH, T4, FT3, BMP, LIPID, LIVER #### [facility] [address] [place] [address] Dr. Brandon Hodges Protein [Mass/Vol] 7.7 g/dL Normal 6.4-8.2 [facility] Comment on above: Performed By: #### T SH, T4, FT3, BMP, LIPID, LIVER #### [facility] [address] [place] [address] Dr. Brandon Hodges PROF CHEM 8 (BAS METB)on Anion gap [Moles/Vol] 14.5 mmol/L Normal [facility] Comment on above: Performed By: #### T SH, T4, FT3, BMP, LIPID, LIVER #### [facility] [address] [address] [address] Brandon Hodges Calcium [Mass/Vol] 9.6 mg/dL Normal 8.5-10.1 [facility] Comment on above: Performed By: #### T SH, T4, FT3, BMP, LIPID, LIVER #### [facility] [address] [address] [address] Brandon Hodges Chloride [Moles/Vol] 108 mmol/L Critically high 98-107 [facility] Comment on above: Performed By: #### T SH, T4, FT3, BMP, LIPID, LIVER #### [facility] [address] [place] [address] Dr. Brandon Hodges CO2 [Moles/Vol] 26.1 mmol/L Normal 21.0-32.0 [facility] Comment on above: Performed By: #### T SH, T4, FT3, BMP, LIPID, LIVER #### [facility] [address] [place] [address] Dr. Brandon Hodges Creatinine [Mass/Vol] 0.75 mg/dL Normal 0.55-1.02 [facility] Comment on above: Performed By: #### T SH, T4, FT3, BMP, LIPID, LIVER #### [facility] [address] [place] [address] Dr. Brandon Hodges EGFR-AF SALVADOREAN >60 Normal >=60 [facility] Comment on above: Performed By: #### T SH, T4, FT3, BMP, LIPID, LIVER #### [facility] [address] [place] [address] Dr. Brandon Hodges EGFR-NON AF SALVADOREAN >60 Normal >=60 [facility] Comment on above: Performed By: #### T SH, T4, FT3, BMP, LIPID, LIVER #### [facility] [address] [place] [address] Dr. Brandon Hodges Glucose [Mass/Vol] 122 mg/dL Critically high 74-106 [facility] Comment on above: Performed By: #### T SH, T4, FT3, BMP, LIPID, LIVER #### [facility] [address] [place] [address] Dr. Brandon Hodges Potassium [Moles/Vol] 4.6 mmol/L Normal 3.5-5.1 [facility] Comment on above: Performed By: #### T SH, T4, FT3, BMP, LIPID, LIVER #### [facility] [address] [place] [address] Dr. Brandon Hodges Sodium [Moles/Vol] 144 mmol/L Normal 136-145 [facility] Comment on above: Performed By: #### T SH, T4, FT3, BMP, LIPID, LIVER #### [facility] [address] [place] [address] Dr. Brandon Hodges Urea nitrogen [Mass/Vol] 13.0 mg/dL Normal 7.0-18.0 [facility] Comment on above: Performed By: #### T SH, T4, FT3, BMP, LIPID, LIVER #### [facility] [address] [place] [address] Dr. Brandon Hodges Urea nitrogen/Creatinine [Mass ratio] 17.3 mg/mg Normal [facility] Comment on above: Performed By: #### T SH, T4, FT3, BMP, LIPID, LIVER #### [facility] [address] [place] [address] Dr. Brandon Hodges T4on 04-19-2022 T4 [Mass/Vol] 9.00 ug/dL Normal 4.80-13.90 [facility] Comment on above: Performed By: #### T SH, T4, FT3, BMP, LIPID, LIVER #### [facility] [address] [place] [address] Dr. Brandon Hodges TSHon 04-19-2022 TSH 0.335 uIU/mL Critically low 0.358-3.740 [facility] Comment on above: Performed By: #### T SH, T4, FT3, BMP, LIPID, LIVER #### [facility] [address] [place] [address] Dr. Brandon Hodges VITAMIN D 25 OHon 04-19-2022 VIT D 25-OH 29.4 ng/mL Normal [facility] Comment on above: Performed By: #### B MP #### [facility] [address] [address] [address] Brandon Hodges VIT D RANGES SEE BELOW Normal [facility] Comment on above: Result Comment: <20 ng/mL Vit D deficient 20 - <30 ng/mL Vit D insufficient 30 - 100 ng/mL Vit D sufficient >100 ng/mL Potential Toxicity Performed By: #### B MP #### [facility] [address] [address] [address] Brandon Hodges MG MAMM SCREEN 3D DIEGO CADon 01-11-2022 MG MAMM SCREEN 3D DIEGO CAD Patient: AUDREY MUÑOZ Exam Date: 01/11/2022 : 1975 Gender:F [facility] #: [id number] Family : Order #: [id number] CLICK HERE TO VIEW EXAM RADIOLOGY REPORT [...] leukemia cancer at age 72. LOCATION: [facility] BREAST COMPOSITION: Heterogeneously dense,which may obscure small [...] Hollingsworth M.D. 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 Performed By: #### B MP #### [facility] [address] [place] [address] Dr. Brandon Hodges RENITA by IFAon 06-18-2021 Antinuclear Antibodies, IFA Negative Normal [facility] Comment on above: Result Comment: Nega tive <1:80 Borderline 1:80 Positive >1:80 ICAP nomenclature: AC-0 For more information about Hep-2 cell patterns use ANApatterns.org, the official website for the International Consensus on Antinuclear Antibody (RENTIA) Patterns (ICAP). Performed By: #### I NSULIN #### [facility] [address] [place] [address] Dr. Brandon Hodges ANTISTREPTOLYSIN O AB (ASO)o n 06-16-2021 Antistreptolysin O Ab 108.1 IU/mL Normal 0.0-200.0 Th e [facility] Comment on above: Performed By: #### I NSULIN #### [facility] [address] [place] [address] Dr. Brandon Hodges RHEUMATOID FACTORon 06-17-19 RA Latex Turbid. 11.1 IU/mL Normal <14.0 [facility] Comment on above: Performed By: #### I NSULIN #### [facility] [address] [place] [address] Dr. Brandon Hodges CBC AUTO DIFFon 06-15-2021 BASO # 0.0 103/ul Normal 0.0-0.1 [facility] Comment on above: Performed By: #### I NSULIN #### [facility] [address] [place] [address] Dr. Brandon Hodges Basophils/100 WBC (Bld) 0.4 % Normal 0.2-2.0 [facility] Comment on above: Performed By: #### I NSULIN #### [facility] [address] [place] [address] Dr. Brandon Hodges EO # 0.0 103/ul Normal 0.0-0.7 [facility] Comment on above: Performed By: #### I NSULIN #### [facility] [address] [place] [address] Dr. Brandon Hodges Eosinophils/100 WBC (Bld) 0.7 % Critically low 0.9-7.0 [facility] Comment on above: Performed By: #### I NSULIN #### [facility] [address] [place] [address] Dr. Brandon Hodges Erythrocyte distribution width (RBC) [Ratio] 12.8 % Normal 11.0-15.0 [facility] Comment on above: Performed By: #### I NSULIN #### [facility] [address] [place] [address] Dr. Brandon Hodges Hematocrit (Bld) [Volume fraction] 43.3 % Normal 36.0-48.0 [facility] Comment on above: Performed By: #### I NSULIN #### [facility] [address] [place] [address] Dr. Brandon Hodges Hemoglobin (Bld) [Mass/Vol] 14.1 g/dL Normal 12.0-16.0 [facility] Comment on above: Performed By: #### I NSULIN #### [facility] [address] [place] [address] Dr. Brandon Hodges IG # 0.00 10e3/ul Normal 0.00-0.03 [facility] Comment on above: Performed By: #### I NSULIN #### [facility] [address] [place] [address] Dr. Brandon Hodges IG % 0.0 % Normal 0.0-0.5 [facility] Comment on above: Performed By: #### I NSULIN #### [facility] [address] [place] [address] Dr. Brandon Hodges LYMPH # 1.6 103/ul Normal 1.2-3.8 [facility] Comment on above: Performed By: #### I NSULIN #### [facility] [address] [address] [address] Brandon Hodges Lymphocytes/100 WBC (Bld) 35.1 % Normal 20.5-60.0 [facility] Comment on above: Performed By: #### I NSULIN #### [facility] [address] [place] [address] Dr. Brandon Hodges MANUAL DIFF REQ NO Normal [facility] Comment on above: Performed By: #### I NSULIN #### [facility] [address] [place] [address] Dr. Brandon Hodges MCH (RBC) [Entitic mass] 29.4 pg Normal 26.7-34.0 [facility] Comment on above: Performed By: #### I NSULIN #### [facility] [address] [place] [address] Dr. Brandon Hodges MCHC (RBC) [Mass/Vol] 32.6 g/dL Normal 29.9-35.2 [facility] Comment on above: Performed By: #### I NSULIN #### [facility] [address] [place] [address] Dr. Brandon Hodges MCV (RBC) [Entitic vol] 90.2 fL Normal 81.0-99.0 [facility] Comment on above: Performed By: #### I NSULIN #### [facility] [address] [place] [address] Dr. Brandon Hodges MONO # 0.3 103/ul Normal 0.3-0.8 [facility] Comment on above: Performed By: #### I NSULIN #### [facility] [address] [place] [address] Dr. Brandon Hodges Monocytes/100 WBC (Bld) 6.8 % Normal 1.7-12.0 [facility] Comment on above: Performed By: #### I NSULIN #### [facility] [address] [place] [address] Dr. Brandon Hodges NEUT # 2.6 103/ul Normal 1.4-6.5 [facility] Comment on above: Performed By: #### I NSULIN #### [facility] [address] [address] [address] Brandon Hodges Neutrophils/100 WBC (Bld) 57.0 % Normal 43.0-75.0 [facility] Comment on above: Performed By: #### I NSULIN #### [facility] [address] [address] [address] Brandon Hodges Platelet mean volume (Bld) [Entitic vol] 10.8 fL Normal 9.5-13.5 [facility] Comment on above: Performed By: #### I NSULIN #### [facility] [address] [address] [address] Brandon Hodges PLT 220 103/ul Normal 150-450 [facility] Comment on above: Performed By: #### I NSULIN #### [facility] [address] [place] [address] Dr. Brandon Hodges RBC 4.80 106/ul Normal 4.20-5.40 [facility] Comment on above: Performed By: #### I NSULIN #### [facility] [address] [place] [address] Dr. Brandon Hodges WBC 4.6 103/ul Normal 4.0-11.0 [facility] Comment on above: Performed By: #### I NSULIN #### [facility] [address] [place] [address] Dr. Brandon Hodges CRPon 06-15-2021 CRP [Mass/Vol] mg/L Normal <=1.0 [facility] Comment on above: Performed By: #### T SH, T4, FT3, BMP, LIPID, LIVER #### [facility] [address] [place] [address] Dr. Brandon Hodges FREE T4on 06-15-2021 Free T4 [Mass/Vol] 0.86 ng/dL Normal 0.76-1.46 [facility] Comment on above: Performed By: #### I NSULIN #### [facility] [address] [place] [address] Dr. Brandon Hodges LIPID PROFILEon 06-15-2021 CHOL-HDL RATIO NORM SEE BELOW Normal [facility] Comment on above: Result Comment: 3.3 - 4.4 LOW RISK 4.4 - 7.1 AVERAGE RISK 7.1 - 11.0 MODERATE RISK >11.0 HIGH RISK Performed By: #### T SH, T4, FT3, BMP, LIPID, LIVER #### [facility] [address] [address] [address] Brandon Hodges Cholesterol [Mass/Vol] 211 mg/dL Critically high <=200 [facility] Comment on above: Performed By: #### T SH, T4, FT3, BMP, LIPID, LIVER #### [facility] [address] [address] [address] Brandon Hodges Cholesterol in HDL [Mass/Vol] 37 mg/dL Critically low 40-60 [facility] Comment on above: Performed By: #### T SH, T4, FT3, BMP, LIPID, LIVER #### [facility] [address] [place] [address] Dr. Brandon Hodges Cholesterol in LDL [Mass/Vol] 151.4 mg/dL Normal [facility] Comment on above: Performed By: #### T SH, T4, FT3, BMP, LIPID, LIVER #### [facility] [address] [address] [address] Brandon Hodges Cholesterol.total/Chol esterol in HDL [Mass ratio] 5.7 {ratio} Normal [facility] Comment on above: Performed By: #### T SH, T4, FT3, BMP, LIPID, LIVER #### [facility] [address] [place] [address] Dr. Brandon Hodges HDL NORMAL > or = 60 mg/dl - LOW CARDIOVASCULAR RISK <40 mg/dl - HIGH CARDIOVASCULAR RISK Normal [facility] Comment on above: Performed By: #### T SH, T4, FT3, BMP, LIPID, LIVER #### [facility] [address] [place] [address] Dr. Brandon Hodges LDL CALC NORMAL SEE BELOW Normal [facility] Comment on above: Result Comment: <100 mg/dl OPTIMAL 100 - 129 mg/dl NEAR OR ABOVE OPTIMAL 130 - 159 mg/dl BORDERLINE HIGH 160 - 189 mg/dl HIGH >190 mg/dl VERY HIGH Performed By: #### T SH, T4, FT3, BMP, LIPID, LIVER #### [facility] [address] [address] [address] Brandon Hodges Triglyceride [Mass/Vol] 113 mg/dL Normal <=150 [facility] Comment on above: Performed By: #### T SH, T4, FT3, BMP, LIPID, LIVER #### [facility] [address] [address] [address] Brandon Hodges VLDL CALC 22.6 mg/dL Normal [facility] Comment on above: Performed By: #### T SH, T4, FT3, BMP, LIPID, LIVER #### [facility] [address] [place] [address] Dr. Brandon Hodges PROF 14(COMP METB)on 022 Albumin [Mass/Vol] 3.8 g/dL Normal 3.4-5.0 [facility] Comment on above: Performed By: #### T SH, T4, FT3, BMP, LIPID, LIVER #### [facility] [address] [place] [address] Dr. Brandon Hodges Albumin/Globulin [Mass ratio] 1.2 {ratio} Normal [facility] Comment on above: Performed By: #### T SH, T4, FT3, BMP, LIPID, LIVER #### [facility] [address] [place] [address] Dr. Brandon Hodges ALP [Catalytic activity/Vol] 75 U/L Normal 46-116 [facility] Comment on above: Performed By: #### T SH, T4, FT3, BMP, LIPID, LIVER #### [facility] [address] [place] [address] Dr. Brandon Hodges ALT [Catalytic activity/Vol] 26 U/L Normal 14-59 [facility] Comment on above: Performed By: #### T SH, T4, FT3, BMP, LIPID, LIVER #### [facility] [address] [place] [address] Dr. Brandon Hodges Anion gap [Moles/Vol] 10.2 mmol/L Normal [facility] Comment on above: Performed By: #### T SH, T4, FT3, BMP, LIPID, LIVER #### [facility] [address] [place] [address] Dr. Brandon Hodges AST [Catalytic activity/Vol] 10 U/L Critically low 15-37 [facility] Comment on above: Performed By: #### T SH, T4, FT3, BMP, LIPID, LIVER #### [facility] [address] [place] [address] Dr. Brandon Hodges Bilirubin [Mass/Vol] 0.4 mg/dL Normal 0.2-1.0 [facility] Comment on above: Performed By: #### T SH, T4, FT3, BMP, LIPID, LIVER #### [facility] [address] [place] [address] Dr. Brandon Hodges Calcium [Mass/Vol] 8.3 mg/dL Critically low 8.5-10.1 [facility] e [facility] Comment on above: Performed By: #### T SH, T4, FT3, BMP, LIPID, LIVER #### [facility] [address] [place] [address] Dr. Brandon Hodges Chloride [Moles/Vol] 103 mmol/L Normal 98-107 [facility] Comment on above: Performed By: #### T SH, T4, FT3, BMP, LIPID, LIVER #### [facility] [address] [place] [address] Dr. Brandon Hodges CO2 [Moles/Vol] 28.8 mmol/L Normal 21.0-32.0 [facility] Comment on above: Performed By: #### T SH, T4, FT3, BMP, LIPID, LIVER #### [facility] [address] [place] [address] Dr. Brandon Hodges Creatinine [Mass/Vol] 0.81 mg/dL Normal 0.55-1.02 [facility] Comment on above: Performed By: #### T SH, T4, FT3, BMP, LIPID, LIVER #### [facility] [address] [place] [address] Dr. Brandon Hodges EGFR-AF SALVADOREAN >60 Normal >=60 [facility] Comment on above: Performed By: #### T SH, T4, FT3, BMP, LIPID, LIVER #### [facility] [address] [address] [address] Brandon Hodges EGFR-NON AF SALVADOREAN >60 Normal >=60 [facility] Comment on above: Performed By: #### T SH, T4, FT3, BMP, LIPID, LIVER #### [facility] [address] [place] [address] Dr. Brandon Hodges Globulin (S) [Mass/Vol] 3.1 g/dL Normal [facility] Comment on above: Performed By: #### T SH, T4, FT3, BMP, LIPID, LIVER #### [facility] [address] [place] [address] Dr. Brandon Hodges Glucose [Mass/Vol] 95 mg/dL Normal 74-106 [facility] Comment on above: Performed By: #### T SH, T4, FT3, BMP, LIPID, LIVER #### [facility] [address] [place] [address] Dr. Brandon Hodges Potassium [Moles/Vol] 3.9 mmol/L Normal 3.5-5.1 [facility] Comment on above: Performed By: #### T SH, T4, FT3, BMP, LIPID, LIVER #### [facility] [address] [place] [address] Dr. Brandon Hodges Protein [Mass/Vol] 6.9 g/dL Normal 6.1-8.2 [facility] Comment on above: Performed By: #### T SH, T4, FT3, BMP, LIPID, LIVER #### [facility] [address] [place] [address] Dr. Brandon Hodges Sodium [Moles/Vol] 138 mmol/L Normal 136-145 [facility] Comment on above: Performed By: #### T SH, T4, FT3, BMP, LIPID, LIVER #### [facility] [address] [place] [address] Dr. Brandon Hodges Urea nitrogen [Mass/Vol] 20.0 mg/dL Critically high 7.0-18.0 [facility] Comment on above: Performed By: #### T SH, T4, FT3, BMP, LIPID, LIVER #### [facility] [address] [place] [address] Dr. Brandon Hodges Urea nitrogen/Creatinine [Mass ratio] 24.7 mg/mg Normal [facility] Comment on above: Performed By: #### T SH, T4, FT3, BMP, LIPID, LIVER #### [facility] [address] [place] [address] Dr. Brandon Hodges [facility] SED RATE <1 Normal <=20 [facility] Comment on above: Performed By: #### B MP #### [facility] [address] [place] [address] Dr. Brandon Hodges TSHon 06-15-2021 TSH 1.006 uIU/mL Normal 0.470-4.680 [facility] Comment on above: Performed By: #### T SH, T4, FT3, BMP, LIPID, LIVER #### [facility] [address] [place] [address] Dr. Brandon Hodges TSH RANGE SEE BELOW Normal [facility] Comment on above: Result Comment: <0.3 4 UIU/ml HYPERTHYROID 0.34-5.60 UIU/ml EUTHYROID >5.60 UIU/ml HYPOTHYROID Performed By: #### T SH, T4, FT3, BMP, LIPID, LIVER #### [facility] [address] [place] [address] Dr. Brandon Hodges URIC ACID SERUMon 06-15-2021 Urate [Mass/Vol] 4.2 mg/dL Normal 2.5-6.2 [facility] Comment on above: Performed By: #### T SH, T4, FT3, BMP, LIPID, LIVER #### [facility] [address] [place] [address] Dr. Brandon Hodges VITAMIN D 25 OHon 06-15-2021 VIT D 25-OH 47.6 ng/mL Normal [facility] Comment on above: Performed By: #### B MP #### [facility] [address] [place] [address] Dr. Brandon Hodges VIT D RANGES SEE BELOW Normal [facility] Comment on above: Result Comment: <20 ng/mL Vit D deficient 20 - <30 ng/mL Vit D insufficient 30 - 100 ng/mL Vit D sufficient >100 ng/mL Potential Toxicity Performed By: #### B #### [facility] [address] [place] [address] Dr. Brandon Hodges XR KNEE DIEGO 3 [...] DOUGLAS SOLANO Date: 2021-06-14 13:35 Normal [facility] Vital Signs Date Time Vital Sign Value Performing Clinician Debra tolentino 09-23-2023 13:00-0400 Diastolic blood pressure 85 mm[Hg] Boby Ballesterose [facility] 09-23-2023 13:00-0400 Heart rate 69 /min Boby Ballesterose [facility] 09-23-2023 13:00-0400 Mean blood pressure 99 mm[Hg] Boby Ballesterose [facility] 09-23-2023 13:00-0400 Respiratory rate 16 /min Boby Ballesterose [facility] 09-23-2023 13:00-0400 SaO2% (BldA) [Mass fraction] 98 % Boby Ballesterose [facility] 09-23-2023 13:00-0400 Systolic blood pressure 127 mm[Hg] Boby Ballesterose [facility] 09-23-2023 12:00-0400 Diastolic blood pressure 82 mm[Hg] Boby Ballesterose [facility] 09-23-2023 12:00-0400 Heart rate 68 /min Boby Ballesterose [facility] 09-23-2023 12:00-0400 Mean blood pressure 94 mm[Hg] Boby Ballesterose [facility] 09-23-2023 12:00-0400 SaO2% (BldA) [Mass fraction] 96 % Boby Ballesterose [facility] 09-23-2023 12:00-0400 Systolic blood pressure 119 mm[Hg] Boby Ballesterose [facility] 09-23-2023 11:05-0400 gluc 89 mg/dL Boby Ballesterose [facility] 09-23-2023 11:05-0400 gluc Boby Cevallos [facility] 09-23-2023 10:59-0400 Body temperature 98.6 [degF] Boby Ballesterose [facility] 09-23-2023 10:59-0400 Diastolic blood pressure 96 mm[Hg] Boby Ballesterose [facility] 09-23-2023 10:59-0400 Heart rate 84 /min Boby Ballesterose [facility] 09-23-2023 10:59-0400 Respiratory rate 18 /min Boby Ballesterose [facility] 09-23-2023 10:59-0400 SaO2% (BldA) [Mass fraction] 99 % Boby Ballesterose [facility] 09-23-2023 10:59-0400 Systolic blood pressure 140 mm[Hg] Boby Ballesterose [facility] 01-20-2023 17:00-0500 Body height 176.53 cm Tika Otero Other [employer] Other 01-20-2023 17:00-0500 Body mass index (BMI) [Ratio] 33.85 kg/m2 Tika Otero Other [employer] Other 01-20-2023 17:00-0500 Body temperature 98 [degF] Tika Otero Other [employer] Other 01-20-2023 17:00-0500 Body weight 105.51 kg Tika Otero Other [employer] Other 01-20-2023 17:00-0500 Respiratory rate 18 /min Tika Otero Other [employer] Other 01-20-2023 17:00-0500 SaO2% (BldA) [Mass fraction] 99 % Tika Otero Other [employer] Other 06-11-2022 15:50-0400 Body height 176.53 cm Elise Stone Other [employer] Other 06-11-2022 15:50-0400 Body mass index (BMI) [Ratio] 36.39 kg/m2 Elise Stone Other [employer] Other 06-11-2022 15:50-0400 Body temperature 97.3 [degF] Elise Stone Other [employer] Other 06-11-2022 15:50-0400 Body weight 113.4 kg Elise Stone Other [employer] Other 06-11-2022 15:50-0400 Respiratory rate 18 /min Elise Stone Other [facility] [employer] Other 06-11-2022 15:50-0400 SaO2% (BldA) [Mass fraction] 99 % Elise Stone Other [facility] [employer] Other 02-28-2022 15:11-0500 Blood Pressure Location Juancarlos Christofferson [facility] 02-28-2022 15:11-0500 Diastolic blood pressure 80 mm[Hg] Juancarlos Christofferson [facility] 02-28-2022 15:11-0500 Heart rate 84 /min Juancarlos Christofferson [facility] 02-28-2022 15:11-0500 Respiratory rate 18 /min Juancarlos Christofferson [facility] 02-28-2022 15:11-0500 SaO2% (BldA) [Mass fraction] 96 % Juancarlos Christofferson [facility] 02-28-2022 15:11-0500 Systolic blood pressure 140 mm[Hg] Juancarlos Christofferson [facility] 11-19-2021 15:13-0400 Blood Pressure Location Juancarlos Christofferson [facility] 11-19-2021 15:13-0400 Diastolic blood pressure 75 mm[Hg] Juancarlos Christofferson [facility] 11-19-2021 15:13-0400 Heart rate 86 /min Juancarlos Christofferson [facility] 11-19-2021 15:13-0400 Respiratory rate 18 /min Juancarlos Christofferson [facility] 11-19-2021 15:13-0400 SaO2% (BldA) [Mass fraction] 96 % Juancarlos Christofferson [facility] 11-19-2021 15:13-0400 Systolic blood pressure 126 mm[Hg] Juancarlos Lonniestephaniechristie [facility] Encounters Encounter Date Encounter Type Care Provider Facility Start: 10-30-2023 End: 10-30-2023 ambulatory YESICA AICHHOLZ Not Available Start: 10-16-2023 End: 10-16-2023 ambulatory NABEEL MENDENHALL Not Available Start: 09-25-2023 End: 09-25-2023 ambulatory SUNNI VELARDEKarri Not Available Start: 09-24-2023 End: 09-24-2023 ambulatory YESICA AICHHOLZ Not Available Start: 09-23-2023 End: 09-23-2023 Emergency department patient visit Boby Cevallos [facility] Start: 08-05-2023 End: 08-05-2023 ambulatory YESICA AICHHOLZ Not Available Start: 05-27-2023 End: 05-27-2023 ambulatory ZEESHAN BENSON Not Available Start: 04-29-2023 End: 04-29-2023 ambulatory YESICA AICHHOLZ Not Available Start: 01-20-2023 End: 01-20-2023 ambulatory Tika Otero Other [facility] [employer] Other Start: 01-20-2023 Office outpatient vi sit 15 minutes Tika Otero [facility] [place] Start: 06-28-2022 End: 06-28-2022 ambulatory Ahmad Abbey Facility:[facility] Start: 06-28-2022 End: 06-28-2022 ambulatory Yesica J Devonhstephz Work Phone: [facility] Work Phone: Start: 06-28-2022 End: 06-28-2022 Discharged Recurring Yesica Victorianoholz Work Phone: [facility] Work Phone: Start: 06-11-2022 End: 06-11-2022 ambulatory Elise Stone Other [place] [employer] Other Start: 06-11-2022 Office outpatient ne w 30 minutes Elise Stone [facility] [place] Start: 05-18-2022 End: 05-19-2022 ambulatory [employer] YESICAWilner NICKERSON Facility:[facility] Start: 04-19-2022 End: 04-20-2022 ambulatory LIFE AGENT YESICA BRANDON Facility:[facility] Start: 02-28-2022 End: 02-28-2022 Patient encounter procedure Juancarlos Giraldo [facility] Start: 01-11-2022 End: 01-12-2022 ambulatory LIFE [employer]ENT YESICA NICKERSON Facility:[facility] Start: 11-29-2021 End: 03-03-2022 Preprocedural examination done Zeeshan Benson [facility] Start: 11-29-2021 End: 03-03-2022 Recurring Zeeshan Benson [facility] Start: 11-19-2021 End: 11-19-2021 Patient encounter procedure Juancarlos Giraldo [facility] Start: 08-17-2021 End: 08-17-2021 Patient encounter procedure Zeeshan Benson [facility] Start: 06-15-2021 End: 06-16-2021 ambulatory LIFE [employer]ENT YESICA NICKERSON Facility:[facility] Start: 06-14-2021 End: 06-15-2021 ambulatory LIFE AGENT YESICA BRANDON Facility:[facility] Payers Date Payer Category Payer Self-pay [id number] 1975 Unknown [id number] 1975 Unknown [id number] 1975 Unknown [id number] 1975 Unknown [id number] [id number] 1975 Unknown [id number] [id number] 1975 Unknown [id number] [id number] 1975 Unknown [id number] [id number] 1975 Unknown [id number] [id number] 1975 Unknown [id number] 2.16.840.1.853529.3.579.2.125 1975 Unknown [id number] 2.16.840.1.753671.3.579.2.1258 1975 Unknown [id number] 2.16.840.1.999279.3.579.2.1258 1975 Unknown [id number] 2.16.840.1.589568.3.579.2.1258 1975 Unknown [id number] 2.16.840.1.112892.3.579.2.1258 1975 Unknown [id number] 2.16.840.1.693604.3.579.2.1258 1975 Unknown [id number] [id number] 1959 Unknown [id number] Private Health Insurance [employer] [id number] Unknown [id number] Social History Date Type Detail Facility Tobacco smoking status No Smokin g Status Entered [facility] Sex Assigned At Female [facility] Start: 02-28-2022 Tobacco smoking status Light t obacco smoker (finding) [facility] Start: 1975 Sex Assigned At Female [facility] Functional Status Date Assessment Result Facility 09-23-2023 Functional Status N/A [facility] 02-28-2022 Functional Status No [facility] 11-19-2021 Functional Status N/A [facility] Clinical Notes 06-11-2022 to 09-23-2023 Note Date [...] balance is good. 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 Take [id number] and prescription medicines only as told by [...] provider. Document Revised: 01/08/2021 Document Reviewed: 01/08/2021 [employer] Patient Education 2022 [employer]. Follow Up Care 09/23/2023 10:55:56 With:YESICAWilner NICKERSON Address: [address] [place] [phone] Business (1) When:09/26/2023 12:52:48 [facility] 09-23-2023 Note ED Patient Education Note [...] is good. ? 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 ? Take [id number] and prescription medicines only as told by [...] provider. Document Revised: 01/08/2021 Document Reviewed: 01/08/2021 [employer] Patient Education ? 2022 [employer]. [facility] 01-20-2023 Evaluation note Encounter Date Diagnosis Assessment [...] no improvement in 2 to 3 days [employer] Other 04-25-2023 Evaluation note* Encounter Date Diagnosis [...] understanding and is agreeable with treatment plan. [employer] Other Evaluation + Plan note No data available for this section [facility] Future Appointments Appointment Date:02/28/2022 03:15:00 PM Scheduled Provider:Juancarlos Giraldo MD Location:.[facility]iology Clinic Appointment Type:Cardiology Follow [facility] (FT) [facility] note[facility] assessment information available [facility] Work Phone: [facility] Narrative - Reported* Type Description Date Medical History Anxiety Medical History History of muscle spasm Medical History acid reflux Surgical History tonsillectomy Surgical History hernia Surgical History cholecystectomy Surgical History oophorectomy Surgical History Tummy Tuck Surgical History lymph node resection left axill vianney Surgical History hysterectomy 04/2019 Surgical History knee surgery 10/2021 Hospitalization History see above [facility] Other [facility] Narrative - Reported* Type Description Date Medical History Anxiety Medical History History of muscle spasm Medical History acid reflux Medical History high cholesterol Surgical History tonsillectomy Surgical History hernia Surgical History cholecystectomy Surgical History oophorectomy Surgical History Tummy Tuck Surgical History lymph node resection left axill vianney Surgical History hysterectomy 04/2019 Surgical History knee surgery 10/2021 Hospitalization History see above [facility] Other Hospital Discharge instructions No data available for this section [facility] No data available for this section [facility] Summary Purpose Family History No Family [...] section and content) DATE CREATED AUTHOR 08/02/2021 [facility] dical Specialist DATE CREATED AUTHOR AUTHOR'S ORGANIZ ATION 05/25/2022 [facility] DATE CREATED AUTHOR AUTHOR'S ORGANIZ ATION 07/01/2022 [facility] DATE CREATED AUTHOR AUTHOR'S ORGANIZ ATION 09/25/2023 [facility] DATE CREATED AUTHOR AUTHOR'S ORGANIZ ATION 09/30/2023 [facility] DATE CREATED AUTHOR AUTHOR'S ORGANIZ ATION 11/01/2023 [facility] dical Specialists EPIC Care Team (unrecognized sect [...] BE BASED ON THE PRIMARY CLINICAL RECORDS. [employer] provides no warranty or guarantee of the accuracy or completeness of information in this document.
--- NOTE | 2023-12-03 09:14 | P.DS_ITS ---
Discharge Plan Discharge Disposition: Home, Self-Care Outpatient Diagnostics: VC INJ Foam Sclerosant WUS CREDIT RISK ANALYST (Routine) Timeframe: 1 Month Facility: [facility] - Location: [facility] Ordered By: Gabe Gutierrez Follow Up Appointments: 12/11/23 Plan of Treatment: Varithena/microfoam of right leg Print Language: Turkmen Discharge Date/Time: 12/03/23 09:15
--- NOTE | 2023-12-03 09:14 | W.VEIN ---
Discharge Plan Discharge Disposition: Home, Self-Care Outpatient Diagnostics: VC INJ Foam Sclerosant WUS SILO TENDER (Routine) Timeframe: 1 Month Facility: [facility] - Location: [facility] Ordered By: Gabe Gutierrez Follow Up Appointments: 12/11/23 Plan of Treatment: Varithena/microfoam of right leg Print Language: Spanish Discharge Date/Time: 12/03/23 09:15
== END 2023-12-03 09:15 | disposition home or self-care (01) ==
PROVIDERS: PCP Radiology Diagnostic Radiology; Visit Provider Radiology Diagnostic Radiology
DX: I80.01 Phlebitis and thrombophlebitis of superficial vessels of right lower extremity (principal)
CPT/HCPCS: 93971; G0463

== ENCOUNTER 2023-12-11 07:25 | Outpatient (OUT) | payer BC, SELFPAY ==
--- NOTE | 2023-12-11 07:17 | VEINCLINIC_ITS ---
Vital Signs 12/11/23 09:06 BP 122/74 BP Location Right Brachial BP Position Sitting BP Cuff Size Adult BP Source Manual Cuff Respiration 16 Pulse 72 Pulse Source Monitor Pulse Oximetry (%) 97 Oxygen Delivery Method Room Air Comment The patient's blood pressure is elevated. Varicose Veins Patient in today for microfoam chemical ablation right leg Ben Zeng MD personally performed the services described in this documentation, as scribed by Abel Tineo RN in my presence and it is both accurate and complete. IAbel RN, am scribing for, and in the presence of, Dr. Ben Hollingsworth and in the presence of the patient. thigh: bilateral, knee: bilateral, calf: bilateral, ankle: bilateral and simmons: bilateral aching, cramping, sharp and intermittent 8 1 year Worsened in recent months: Yes other (denies) other (daily anti-inflammatory) Reports muscle spasms of leg, limb pain and leg edema (pitting) History of lower extremity trauma: No Superficial thrombophlebitis: No Family history of varicose veins: yes (mother and father) Has patient had previous lower extremity venous surgery: No Patient has previously received the following treatment(s) for lower extremity varicose veins: Reports none Does patient have a history of : yes (grav 3 para 2) Does patient intend to have future pregnancies: no Has patient had lower extremity venous scan with relux testing: Yes Support hose used: Yes (6 months) Prescribed by provider: No Problems walking or doing physical activity: No Do you walk much: Yes Do you stand much: Yes Medication compliance: good Large amounts of Vitamin K: No Review of Systems ROS Narrative Ben Zeng MD personally performed the services described in this documentation, as scribed by Abel Tineo RN in my presence and it is both accurate and complete. Abel Zeng RN, am scribing for, and in the presence of, Dr. Ben Hollingsworth and in the presence of the patient. Status of ROS 10 or more systems reviewed and unremark able except as noted in history and below Cardiovascular Reports: edema; Denies: swelling of feet/ankles Musculoskeletal Reports: extremity pain, extremity swelling, joint pain, joint swelling, muscle cramps and muscle weakness Integumentary/Breast Reports: skin pain, skin tenderness and skin swelling PFSH PFS Medical History (Updated 11/27/23 @ 07:32 by Kelsi Sal RN) Phlebitis and thrombophlebitis of superficial vessels of right lower extremity ?I80.01 - Phlebitis and thrombophlebitis of superficial vessels of right lower extremity (ICD-10) Lymphoma of lymph nodes of axilla ?C85.94 - Non-Hodgkin lymphoma, unspecified, lymph nodes of axilla and upper limb (ICD-10) Hemorrhage following tonsillectomy and adenoidectomy ?J95.830 - Postprocedural hemorrhage of a respiratory system organ or structure following a respiratory system procedure (ICD-10) Encounter for cholecystectomy ?Z76.89 - Persons encountering health services in other specified circumstances (ICD-10) Lymphedema ?I89.0 - Lymphedema, not elsewhere classified (ICD-10) Migraines ?G43.909 - Migraine, unspecified, not intractable, without status migrainosus (ICD-10) Gastroesophageal reflux ?K21.9 - Gastro-esophageal reflux disease without esophagitis (ICD-10) Varicose veins of bilateral lower extremities with pain ?I83.813 - Varicose veins of bilateral lower extremities with pain (ICD-10) Hypertension ?I10 - Essential (primary) hypertension (ICD-10) Hypercholesteremia ?E78.00 - Pure hypercholesterolemia, unspecified (ICD-10) Endometriosis ?N80.9 - Endometriosis, unspecified (ICD-10) Surgical History (Updated 12/11/23 @ 09:50 by Abel Tineo) S/P sclerotherapy of varicose veins ?Z98.890 - Other specified postprocedural states (ICD-10) ?Z86.79 - Personal history of other diseases of the circulatory system (ICD- 10) H/O hernia repair ?Z98.890 - Other specified postprocedural states (ICD-10) ?Z87.19 - Personal history of other diseases of the digestive system (ICD-10) H/O arthroscopy of knee ?Z98.890 - Other specified postprocedural states (ICD-10) H/O: hysterectomy ?Z90.710 - Acquired absence of both cervix and uterus (ICD-10) Family History (Updated 08/19/23 @ 10:03 by Kelsi Sal RN) Mother Family history of cancer Varicose veins of bilateral lower extremities with pain Grandmother Family history of diabetes mellitus Father Family history of hypertension Varicose veins of bilateral lower extremities with pain Son Family history of hypertension Grandfather Family history of stroke Social History (Updated 08/19/23 @ 08:47 by Kelsi Sal RN) Within the past year, how often did you have a drink containing alcohol: monthly or less Smoking status: Current every day smoker Do you use any of these nicotine containing products: vaping products Non-prescribed substance use: denies use Meds Home Medications and Allergies Home Medications ?Medication ?Instructions ?Recorded ?Confirmed ?Type alprazolam 0.25 mg tablet (Xanax) 0.25 mg PO PRN 08/19/23 08/19/23 History atorvastatin 10 mg tablet 10 mg PO QPM 08/19/23 08/19/23 History hormonal cream 08/19/23 History hydrochlorothiazide 12.5 mg tablet 25 mg PO DAILY 08/19/23 08/19/23 History meloxicam 15 mg tablet 15 mg PO DAILY 08/19/23 08/19/23 History omeprazole 20 mg capsule,delayed 20 mg PO DAILY 08/19/23 08/19/23 History release Allergies Allergy/AdvReac Type Severity Reaction Status Date / Time rofecoxib (From Vioxx) Allergy Unknown Unknown Unverified 08/19/23 08:53 amoxicillin Allergy rash Unverified 08/19/23 08:53 iodine Allergy Rash Unverified 08/19/23 09:58 methylprednisolone Allergy itching Unverified 08/19/23 10:18 paroxetine (From Paxil) Allergy Unknown Unverified 08/19/23 08:53 sertraline (From Zoloft) Allergy Unknown Unverified 08/19/23 08:53 Exam Narrative Exam Narrative: IBen MD personally performed the services described in this documentation, as scribed by Abel Tineo RN in my presence and it is both accurate and complete. I, Abel Tineo RN, am scribing for, and in the presence of, Dr. Ben Hollingsworth and in the presence of the patient. Constitutional Vital Signs, click to edit/add: Last Vital Signs Pulse 53 L 08/19/23 08:58 Resp 16 08/19/23 08:58 BP 104/72 08/19/23 08:58 Pulse Ox 98 08/19/23 08:58 Documenting provider has reviewed patient's vital signs: yes Common normals: oriented x3 Nutritional appearance: overweight Lymph Lymphatic: no lymphedema noted Cardio Peripheral pulses: posterior tibial pulses present and dorsalis pedis pulses present Extremity General: calf tenderness, edema and other findings Right lower extremity: lower leg Right lower leg: inspection and palpation Left lower extremity: lower leg Left lower leg: inspection and palpation Neuro Common normals: oriented x3 Assessment and Plan Assessment and Plan (1) Varicose veins of bilateral lower extremities with pain: (2) S/P sclerotherapy of varicose veins: Plan f/u evaluation with physician along with right leg Ben Zeng MD personally performed the services described in this documentation, as scribed by Abel Tineo RN in my presence and it is both accurate and complete. Abel Zeng RN, am scribing for, and in the presence of, Dr. Ben Hollingsworth and in the presence of the patient. Procedures Procedure Instructions Procedures leg microfoam chemical ablation/Varithena: Risks and benefits of the procedure were discussed at length and informed written consent was obtained.? Time-out procedure was performed and the correct patient and procedure were confirmed.? Staff present during time-out: Abel Tineo RN and Ben Hollingsworth MD.? Patient prepped and procedure performed in usual sterile fashion.? Patient was placed in Trendelenburg prior to Polidocanol/Ni ithena injections. Sclerosing Agent:??14 cc 1% Polidocanol/Varithena Site Injected: right lecc varithena administered in to a 3mm varicose vein right medial lower leg 4cc varithena administered in to a 3mm varicose vein mid medial uplper right leg 5cc varithena administered into a 3mm varicose vein proximal anterior upper right leg Number of Injections:? 3 The patient tolerated the procedure well without complication.? Hemostasis was obtained and thigh-high compression stocking was applied with foam pads.? Instructed patient to wear stocking for at least 96 hours and sleep with it and only remove for showering.? The patient was instructed to? wear stocking for 2 weeks.? Patient verbalizes understanding and states they will comply.? Patient was given post-procedure instructions. Patient was discharged in good condition.? Scheduled to undergo limited venous ultrasound and? exam on 12/17/2023. I, Ben Hollingsworth MD personally performed the services described in this documentation, as scribed by Abel Tineo RN in my presence and it is both accurate and complete. I, Abel Tineo RN, am scribing for, and in the presence of, Dr. Ben Hollingsworth and in the presence of the patient.
--- NOTE | 2023-12-11 07:20 | P.DS_ITS ---
Discharge Plan Discharge Disposition: Home, Self-Care Outpatient Diagnostics: [facility] Facility EST LMTD (Routine) Timeframe: 2 Weeks Facility: [facility] - Location: [facility] Ordered By: Ben Hollingsworth VC EXT Venous RT LMTD (Routine) Timeframe: 2 Weeks Facility: [facility] - Location: Vein Center Ordered By: Ben Hollingsworth Follow Up Appointments: 12/17/2023 Plan of Treatment: f/u evaluation with physician along with right leg limited u/s Patient Instructions: Polidocanol (By injection) (Asclera, Varithena) Print Language: Bengali Discharge Date/Time: 12/11/23 09:53
--- NOTE | 2023-12-11 07:33 | VEIN_ITS ---
[address] [address] Patient Name: AUDREY MUÑOZ MRN: [id number] date: 1975 Sex: F Assigned Patient Location: Current Patient Location: Accession/Order Number: [id number] Exam Date: 12/11/2023 07:33 Report Date: 12/11/2023 08:51 At the request of: DOUGLAS SOLANO Procedure: VC INJ Foam Sclerosant WUS FOAM CASTER PROCEDURE: VC INJ Foam Sclerosant WUS FOAM CASTER HISTORY: I83.813 - Varicose veins of bilateral lower extremities w... Pre-operative Diagnosis: CEAP class C3 venous insufficiency with pain, tenderness, edema and incompetent branch saphenous vein(s), chronic venous insufficiency right leg secondary to venous incompetence Post-operative Diagnosis: CEAP class C3 venous insufficiency with pain, tenderness, edema and incompetent branch saphenous vein(s), chronic venous insufficiency right leg secondary to venous incompetence Procedure Performed: 1. Ultrasound-guided microfoam chemical ablation with Varithenaregistered 2. Intraoperative ultrasound guidance Physician: Ben Hollingsworth M.D. Anesthesia: None Indications for Procedure: 48 year old female. Symptoms including lower extremity pain, swelling, dilated bulging veins for many years despite conservative medical therapy including medical compression stockings, exercise and analgesics. Prior procedures include endovenous laser ablation. Multiple incompetent varicosities of the right leg. Duplex scan showed reflux and enlarged diameters up to 4 mm. The patient underwent informed consent including management options where the complications of infection, bleeding, pain, and skin injury were discussed. Particular attention was spent discussing thrombus extension and deep vein thrombosis as well as the possibility of pulmonary embolus and treatment with oral or injectable blood thinners. Procedure: The patient walked to the procedure room. All applicable staff donned appropriate apparel. A procedure timeout was performed to confirm correct patient, correct extremity, correct procedure, and correct room set-up including presence of all applicable supplies, devices, and drugs. A duplex ultrasound, performed by myself confirmed the location and incompetence of branch saphenous varicosities and their course was marked on the skin together with the dilated tributaries. The extent of treatment of the vein and the associated varicosities was determined through ultrasound mapping. The skin was prepped and then punctured with a butterfly needle and advanced under ultrasound guidance. The Varithenaregistered canister was activated and the canister was primed and purged as required in the instructions for use. Varithenaregistered was drawn into a sterile syringe. Varithenaregistered was slowly administered at 0.5-1.0 cc/second with close observation by ultrasound of its course in the vessels. Total volume utilized was: 14 mL (5 mL into a 4 mm varicosity distal medial lower right leg; 4 mL into a 4 mm varicosity mid medial upper right leg; 5 mL into a 4 mm varicosity proximal anterior upper right leg). Following administration of Varithenaregistered the leg was elevated and the patient was asked to repeatedly dorsiflex the ankle to limit flow of Varithenaregistered into perforating veins. Once appropriate spasm had been confirmed in the treated veins, the vascular catheter was removed from the leg and light pressure was applied over the puncture site for hemostasis. The common femoral and deep superficial veins were then evaluated for flow and compressibility prior to dressing placement. The lower extremity was kept elevated at 45 degrees above the horizontal and cording material was applied over the saphenous segments and tributaries to allow for eccentric compression over the target vessels including the targeted saphenous vein(s). A multilayer dressing was applied consisting of foam pads, coban and thigh-high 20-30 mm Hg compression elastic support hose were placed on the patient. The leg was lowered only after compression had been applied and the patient was immediately ambulatory. The patient ambulated 10 minutes under supervision and was without apparent concerns at time of release. Post-care instructions include advising patient to keep post-treatment bandages in place and dry for 48 hours, avoid extended periods of inactivity, avoid heavy exercise for one week, wear compression stockings on the treated leg continuously for two weeks, to walk daily for 10 minutes over the next month. The patient was instructed to take an anti-inflammatory medicine as needed and to follow up for color duplex scan of the Saphenous veins, the treated branch saphenous varicosities, the adjacent deep veins, and additional treatment within 7 days. PERSONNEL: Abel Tineo RN Electronically authenticated by: BEN HOLLINGSWORTH Date: 12/11/2023 08:51
--- OUTSIDE RECORDS SUMMARY | 2023-12-11 07:49 | XMS_ITS | CCD ---
Author Organization [facility] Care Team Providers Care Powder Guard Name Role Phone YESICA NICKERSON Primary Care Physician AICHHOLZ, HOG GRADER YESICA Primary Care Unavailable AICHHOLZ, HOG GRADER YESICA Admitting Unavailable DR DOUGLAS SOLANO V Consulting Unavailable AICHHOLZ, HOG GRADER YESICA Attending Unavailable AICHHOLZ, HOG GRADER YESICA Consulting Unavailable AICHHOLZ, HOG GRADER YESICA Attending Unavailable AICHHOLZ, HOG GRADER YESICA Consulting Unavailable AICHHOLZ, HOG GRADER YESICA Primary Care Unavailable AICHHOLZ, HOG GRADER YESICA Admitting Unavailable AICHHOLZ, HOG GRADER YESICA Attending Unavailable AICHHOLZ, HOG GRADER YESICA Consulting Unavailable AICHHOLZ, HOG GRADER YESICA Primary Care Unavailable AICHHOLZ, HOG GRADER YESICA Admitting Unavailable AICHHOLZ, HOG GRADER YESICA Attending Unavailable AICHHOLZ, HOG GRADER YESICA Consulting Unavailable AICHHOLZ, HOG GRADER YESICA Primary Care Unavailable AICHHOLZ, HOG GRADER YESICA Admitting Unavailable DR JONATHAN HOLLINGSWORTH Consulting Unavailable AICHHOLZ, HOG GRADER YESICA Consulting Unavailable AICHHOLZ, HOG GRADER YESICA Primary Care Unavailable AICHHOLZ, HOG GRADER YESICA Admitting Unavailable AICHHOLZ, HOG GRADER YESICA Attending Unavailable Elise Stone Unavailable MD Gopal Potter Attending Provider Yesica Nickerson Primary Care Provider Tika Otero Unavailable Boby Cevallos Attending Unavailable Boby Cevallos Attending Unavailable Brian Leblanc MD Primary Care Provider Krishan INSPECTOR AND MENDER, Yesica Unavailable Yesica Nickerson Primary Care Provider MD Salinas White Attending Provider YESICA NICKERSON Attending Unavailable ZEESHAN BENSON Referring Unavailable ZEESHAN BENSON Attending Unavailable KRISHAN, YESICA Attending Unavailable KRISHAN, YESICA Attending Unavailable SUNNI MATHEW Attending Unavailable AICHHOLZ, YESICA Referring Unavailable RADHIKA QUISPE Attending Unavailable AICHULISSES, YESICA Attending Unavailable KRISHAN, YESICA Attending Unavailable Yesica Nickerson J Primary Care Unavailable Salinas White Attending Unavailable Salinas White Admitting Unavailable Allergies Allergy Classification Reported Allergen(s) Allergy Type Date of Onset Reaction(s) Facility (13 sources) Amoxicillin; Translations: [amoxicillin] Drug Allergy 06-29-19 Unknown (qualifier value), Unknown [facility] (6 sources) Iodine; Translations: [iodine containing compounds] Drug allergy Eruption of skin (disorder) [facility] (11 sources) PARoxetine; Translations: [paroxetine] Drug Allergy 06-29-19 23 Unknown (qualifier value), Unknown [facility] (11 sources) Povidone-Iodine; Translations: [povidone iodine topical] Drug Allergy 06-29-19 Unknown (qualifier value) [facility] (8 sources) rofecoxib; Translations: [rofecoxib] Drug Allergy 06-29-19 23 Unknown (qualifier value) [facility] (11 sources) Sertraline; Translations: [sertraline] Drug Allergy 06-29-19 23 Unknown (qualifier value), Unknown [facility] (1 source) Adhesive agent Drug allergy (disorder) [facility] (5 sources) Iodine Drug Allergy 01-27-20 13 burning sensation, Redness of Skin, Redness of Skin, burning sensation [facility] (1 source) Latex Drug allergy (disorder) [facility] (3 sources) Cortisone; Translations: [cortisone] Drug Allergy 06-29-19 23 Itching [facility] (3 sources) Iodine Drug Allergy 01-25-20 23 [facility] (3 sources) methylPREDNISolone Drug Allergy 01-25-20 Itching [facility] (3 sources) Povidone-Iodine Drug Allergy 05-27-19 Other [facility] (3 sources) rofecoxib Drug Allergy 04-14-19 Unknown [facility] (1 source) Amoxicillin Drug Allergy 01-21-20 [facility] (1 source) Iodine Drug Allergy 01-21-20 [facility] (1 source) PARoxetine Drug Allergy 06-29-19 [facility] (1 source) Povidone-Iodine Drug Allergy 06-29-19 [facility] (1 source) rofecoxib Drug Allergy 06-29-19 [facility] (1 source) Sertraline Drug Allergy 06-29-19 [facility] Medications Current Medications Medication Drug Class(es) Dates Sig (Normalized) Sig (Original) ALPRAZolam 0.25 mg oral tablet (7 sources) Benzodiazepine Start: 09-13-2021 alprazolam 0.25 mg Tab 30 tab(s), Refills(s) 0 Start Date: 09/13/21 Status: Ordered atorvastatin 10 mg oral tablet (4 sources) HMG-CoA Reductase Inhibitor Start: 10-30-2023 End: 01-28-2024 take 1 tablet by mouth once daily atorvastatin (Lipitor) 10 MG tablet Indications: Mixed hyperlipidemia (CMS/HCC) Take 1 tablet (10 mg) by mouth Daily 90 tablet 1 10/30/2023 01/28/2024 Active Atorvastatin Will cium 10 MG Oral for 90 Days Active cholecalciferol 0.025 mg oral capsule (3 sources) Vitamin D take 2 capsules by mouth every week Cholecalciferol (Vitamin D3) 1000 units capsule Take 2,000 Units by mouth 1 (one) time per week Active DHEA 10 MG (1 source) DHEA 10 MG as di rected Orally Active Hormone Cream Base cream (3 sources) Hormone Cream Ba se cream 0.5 mL Daily From [place] drug compound Active hydroCHLOROthiazide 25 mg oral tablet (2 [...] Active metaxalone 800 mg oral table t (7 sources) Start: 11-13-2021 metaxalone 800 mg Tab Refills(s) 0 Start Date: 11/13/21 Status: Ordered metaxalone (Skel axin) 800 MG tablet Take 400 mg by mouth 4 (four) times a day as needed for muscle spasms Active omeprazole 20 mg delayed release oral capsule (11 sources) Proton Pump Inhibitor Start: 12-04-2023 End: 01-03-2024 take 1 capsule by mouth before mealtime omeprazole (PriLOSEC) [address] capsule Indications: Peptic ulcer without hemorrhage, perforation, or obstruction Take 1 capsule (20 mg) by mouth in the morning. Take before meals. 30 capsule 2 12/04/2023 01/03/2024 Active Start: 09-13-2021 take 1 capsule by mo ut once daily omeprazole 40 mg Cap-DR 30 EA, TAKE 1 CAPSULE BY MOUTH EVERY DAY, Refills(s) 0 Start Date: 09/13/21 Status: Ordered Omeprazole Activ e spironolactone 25 mg oral tablet (3 sources) Aldosterone Antagonist Start: 11-17-2023 End: 12-17-2023 take 1 tablet by mouth once daily as needed spironolactone (Aldactone) 25 MG tablet Indications: Bilateral lower extremity edema Take 1 tablet (25 mg) by mouth Daily as needed (swelling legs) 30 tablet 2 11/17/2023 12/17/2023 Active UNABLE TO FIND (3 sources) take 1 tablet by mouth once daily UNABLE TO FIND Take 1 tablet by mouth Daily Med Name: DHEA 5mg tablet Active Problems Active Problems Problem Classification Problem Date Documented Date Episodic/Chronic Anxiety disorders (3 sources) Mixed anxiety and depressive disorder; Translations: [Anxiety disorder, unspecified] Onset: 04-29-2023 04-29-2023 Chronic Cardiac dysrhythmias (3 sources) Palpitations; Translations: [Palpitations] Onset: 09-24-2023 09-24-2023 Episodic Conditions associated with dizziness or vertigo (4 sources) Dizziness and giddiness; Translations: [Dizziness and giddiness] Onset: 09-23-2023 Episodic Disorders of lipid metabolism (3 sources) Mixed hyperlipidemia; Translations: [Mixed hyperlipidemia] Onset: 04-14-2023 04-14-2023 Chronic Endometriosis (3 sources) Endometriosis (clinical); Translations: [Endometriosis, unspecified] Onset: 01-29-2013 01-24-2023 Chronic Esophageal disorders (4 sources) Gastroesophageal reflux disease without esophagitis; Translations: [Gastro-esophageal reflux disease without esophagitis] Onset: 12-04-2023 12-04-2023 Chronic Fluid and electrolyte disorders (3 sources) Hypokalemia; Translations: [Hypokalemia] Onset: 10-30-2023 10-30-2023 Episodic Gastroduodenal ulcer (except hemorrhage) (5 sources) Peptic ulcer without hemorrhage, without perforation AND without obstruction; Translations: [Peptic ulcer, site unspecified, unspecified as acute or chronic, without hemorrhage or perforation] Onset: 01-29-2013 01-24-2023 Chronic Headache; including migraine (3 sources) Migraine; Translations: [Migraine, unspecified, not intractable, without status migrainosus] Onset: 04-29-2023 04-29-2023 Chronic Immunizations and screening for infectious disease (5 sources) Anti-nuclear factor positive; Translations: [Other specified abnormal immunological findings in serum] Onset: 11-06-2023 11-06-2023 Episodic Joint disorders and dislocations; trauma-related (3 sources) Derangement of right knee; Translations: [Unspecified internal derangement of right knee] Onset: 01-24-2023 01-24-2023 Chronic Malaise and fatigue (4 sources) Asthenia; Translations: [Weakness] Onset: 09-23-2023 Episodic Menopausal disorders (7 sources) Menopausal and female climacteric states; Translations: [Menopause ovarian failure] Onset: 04-19-2022 Chronic Menstrual disorders (8 sources) Amenorrhea; Translations: [Amenorrhea, unspecified] Onset: 01-24-2023 01-24-2023 Chronic Nonmalignant breast conditions (3 sources) Fibrocystic disease of breast; Translations: [Diffuse cystic mastopathy of unspecified breast] Onset: 01-29-2013 01-24-2023 Chronic Osteoarthritis (3 sources) Osteoarthritis of knee; Translations: [Osteoarthritis of knee, unspecified] Onset: 01-24-2023 01-24-2023 Chronic Other endocrine disorders (1 source) Other specified disorders of adrenal gland; Translations: [OTHER SPEC DISORDERS ADRENAL GLAND] Onset: 03-06-2023 Chronic Other female genital disorders (3 sources) Pain in female genitalia on intercourse; Translations: [Unspecified dyspareunia] Onset: 04-29-2023 04-29-2023 Chronic Other nervous system disorders (1 source) Other chronic pain; Translations: [OTHER CHRONIC PAIN] Onset: 06-19-2021 Chronic Other nervous system disorders (3 sources) Thoracic outlet syndrome; Translations: [Brachial plexus disorders] Onset: 04-29-2023 04-29-2023 Chronic Other nutritional; endocrine; and metabolic disorders (1 source) Obesity, unspecified; Translations: [OBESITY UNSPECIFIED] Onset: 04-22-2022 Chronic Other nutritional; endocrine; and metabolic disorders (1 source) Body mass index (BMI) 30.0-30.9, adult; Translations: [BODY MASS INDEX BMI 30.0-30.9 ADULT] Onset: 06-20-2021 Chronic Other nutritional; endocrine; and metabolic disorders (5 sources) Obesity; Translations: [Obesity, unspecified] Onset: 01-24-2023 01-24-2023 Chronic Other upper respiratory disease (2 sources) Seasonal allergic rhinitis; Translations: [Other seasonal allergic rhinitis] Chronic Other upper respiratory disease (1 source) Other seasonal allergic rhinitis Chronic Other upper respiratory infections (1 source) Acute pharyngitis, unspecified Episodic Residual codes; unclassified (3 sources) Obstructive sleep apnea syndrome; Translations: [Obstructive sleep apnea (adult) (pediatric)] Onset: 04-29-2023 04-29-2023 Chronic Residual codes; unclassified (4 sources) Localized edema; Translations: [LOCALIZED EDEMA] Onset: 05-18-2022 Episodic Residual codes; unclassified (5 sources) Tobacco user; Translations: [Tobacco use] Onset: 04-29-2023 04-29-2023 Episodic Substance-related disorders (3 sources) Smokes tobacco daily; Translations: [Nicotine dependence, unspecified, uncomplicated] Onset: 01-24-2023 01-24-2023 Chronic Thyroid disorders (1 source) Nontoxic goiter, unspecified; Translations: [NONTOXIC GOITER UNSPECIFIED] Onset: 04-22-2022 Chronic Varicose veins of lower extremity (5 sources) Varicose veins of lower extremity; Translations: [Varicose veins of bilateral lower extremities with pain] Onset: 08-05-2023 08-05-2023 Episodic Past or Other Problems Problem Classification Problem Date Documented Date Episodic/Chronic Headache; including migraine (3 sources) Headache; Translations: [Headache] Onset: 06-17-2007 04-29-2023 Episodic Other connective tissue disease (4 sources) Fibromyalgia; Translations: [FIBROMYALGIA] Onset: 06-15-2021 Episodic Other connective tissue disease (3 sources) Plantar fasciitis; Translations: [Plantar fascial fibromatosis] Onset: 01-24-2023 01-24-2023 Episodic Other connective tissue disease (3 sources) Fibromyalgia; Translations: [Fibromyalgia] Onset: 04-29-2023 04-29-2023 Episodic Other non-traumatic joint disorders (7 sources) Pain in right knee; Translations: [Pain in joint, lower leg] Onset: 06-14-2021 Episodic Other non-traumatic joint disorders (1 source) Pain in left knee; Translations: [PAIN IN LEFT KNEE] Onset: 06-19-2021 Episodic Other screening for suspected conditions (not mental disorders or infectious disease) (16 sources) Encounter for screening mammogram for malignant neoplasm of breast; Translations: [Abnormal findings on diagnostic imaging of breast] Onset: 01-11-2022 Episodic Other skin disorders (3 sources) Disorder of skin of lower limb; Translations: [Disorder of the skin and subcutaneous tissue, unspecified] Onset: 08-05-2023 08-05-2023 Episodic Other skin disorders (3 sources) Mass of skin of right lower limb; Translations: [Disorder of the skin and subcutaneous tissue, unspecified] Onset: 08-05-2023 08-05-2023 Episodic Residual codes; unclassified (1 source) Family [...] MALIG NEOPLASM OTH ORGN/SYS] Onset: 01-16-2022 Episodic Residual codes; unclassified (3 sources) Bilateral lower limb edema; Translations: [Localized edema] Onset: 04-14-2023 04-14-2023 Episodic Residual codes; unclassified (3 sources) Menopause present; Translations: [Asymptomatic menopausal state] Onset: 04-30-2023 04-30-2023 Episodic Residual codes; unclassified (3 sources) Patient participation status; Translations: [Other specified health status] Onset: 08-05-2023 08-05-2023 Episodic Unclassified (1 source) Exposure to 2019 novel coronavirus; Translations: [Contact with and (suspected) exposure to COVID19] Unclassified (1 source) Suspected COVID-19 virus infection Z20.822 Viral infection (1 source) COVID-19 Results Test Name Value Interpretation Reference Range Facility Automated basophil %Ordered By: Salinas White on 12-04-2023 Basophils/100 WBC (Bld) 0.9 % Normal . [facility] Comment on above: Performed By: #### C 3, CH50, C4 #### [facility] , #### ADDONUAPLUS, CRP, CREAT, ESR, CBC #### [address] Automated basophil countOrde red By: Salinas White on 12-04-2023 Basophils (Bld) [#/Vol] 0.0 10*3/uL Normal 0.0-0.2 [facility] Comment on above: Performed By: #### C 3, CH50, C4 #### [facility] , #### ADDONUAPLUS, CRP, CREAT, ESR, CBC #### [facility] [address] [place] [address] Automated blood monocyte cou ntOrdered By: Salinas White on 12-04-2023 Monocytes (Bld) [#/Vol] 0.3 10*3/uL Normal 0.0-0.8 [facility] Comment on above: Performed By: #### C 3, CH50, C4 #### [facility] , #### ADDONUAPLUS, CRP, CREAT, ESR, CBC #### [address] Automated eosinophil %Ordere d By: Salinas White on 12-04-2023 Eosinophils/100 WBC (Bld) 2.7 % Normal . [facility] Comment on above: Performed By: #### C 3, CH50, C4 #### [facility] , #### ADDONUAPLUS, CRP, CREAT, ESR, CBC #### [facility] [address] [place] [address] Automated eosinophil countOr dered By: Salinas White on 12-04-2023 Eosinophils (Bld) [#/Vol] 0.1 10*3/uL Normal 0.0-0.45 [facility] Comment on above: Performed By: #### C 3, CH50, C4 #### [facility] , #### ADDONUAPLUS, CRP, CREAT, ESR, CBC #### [address] Automated monocyte %Ordered By: Salinas White on 12-04-2023 Monocytes/100 WBC (Bld) 6.1 % Normal . [facility] Comment on above: Performed By: #### C 3, CH50, C4 #### [facility] , #### ADDONUAPLUS, CRP, CREAT, ESR, CBC #### [address] Automated neutrophil %Ordere d By: Salinas White on 12-04-2023 Neutrophils/100 WBC (Bld) 50.0 % Normal . [facility] Comment on above: Performed By: #### C 3, CH50, C4 #### [facility] , #### ADDONUAPLUS, CRP, CREAT, ESR, CBC #### [facility] [address] [place] [address] Bacteria [Presence] in Urine by AutomatedOrdered By: Salinas White on 12-04-2023 Bacteria Auto Ql (U) Rare [HPF] None Seen [facility] Bilirubin Test strip Ql (U)O rdered By: Salinas White on 12-04-2023 Bilirubin Ql (U) Negative Negative [facility] C reactive protein [Mass/vol ume] in Serum or PlasmaOrdered By: Salinas White on 12-04-2023 CRP [Mass/Vol] < 0.5 mg/dL 0.0-0.5 [facility] C-Reactive Proteinon 024 CRP [Mass/Vol] mg/L Normal 0.0-0.5 [facility] Comment on above: Result Comment: PERF ORMED BY: [place] [address] PATHOLOGIST BATCH MIXER OPERATOR LYDIA JACKSON M.D. Performed By: #### C 3, CH50, C4 #### [facility] , #### ADDONUAPLUS, CRP, CREAT, ESR, CBC #### [address] Color of Urine by AutoOrdere d By: Salinas White on 12-04-2023 Color (U) Light-yellow Normal Yellow [facility] Comment on above: Order Comment: Name Collection Type:: Clean-Voided Midstream Performed By: #### C 3, CH50, C4 #### [facility] , #### ADDONUAPLUS, CRP, CREAT, ESR, CBC #### [place] [address] [place] Complement C3on 12-04-2023 Complement C3 125 mg/dL Normal 82-167 [facility] Comment on above: Result Comment: Perf ormed at: CB - [facility] [address] [id number] Drywall Hanger: Bill Lagunas PhD, Phone: [phone] Performed By: #### C 3, CH50, C4 #### [facility] , #### ADDONUAPLUS, CRP, CREAT, ESR, CBC #### [place] [address] [place] Complement C4on 12-04-2023 Complement C4 29 mg/dL Normal 12-38 [facility] Comment on above: Result Comment: PERF ORMED BY: [place] [address] PATHOLOGIST BATCH MIXER OPERATOR LYDIA JACKSON M.D. Performed By: #### C 3, CH50, C4 #### [facility] , #### ADDONUAPLUS, CRP, CREAT, ESR, CBC #### [address] Complement Total (CH50)on Complement Total (CH50) 52 Normal >41 [facility] Comment on above: Result Comment: Age Male Female 1 - 30 days Not Estab. Not Estab. 31 days - 6 months >32 >20 7 months - 17 years >39 >39 >17 years >41 >41 NOTE: The adult ( >17 years ) reference interval range is used to flag abnormals on this report. If the patient is 17 years old or younger, use the table above to determine out of range values. Performed at: - [facility] [address] [id number] Drywall Hanger: Bill Lagunas PhD, Phone: [phone] PERFORMED BY: [place] [address] PATHOLOGIST BATCH MIXER OPERATOR LYDIA JACKSON M.D. Performed By: #### C 3, CH50, C4 #### [facility] , #### ADDONUAPLUS, CRP, CREAT, ESR, CBC #### [address] Complete Blood Count Auto Di ffon 12-04-2023 Mean Corpuscular HGB Conc 34.1 g/dL Normal 32.0-35.0 [facility] Comment on above: Performed By: #### C 3, CH50, C4 #### [facility] , #### ADDONUAPLUS, CRP, CREAT, ESR, CBC #### [address] NRBC% 0.1 /100{WBC} Normal 0-0.5 [facility] Comment on above: Performed By: #### C 3, CH50, C4 #### [facility] , #### ADDONUAPLUS, CRP, CREAT, ESR, CBC #### [address] Creatinineon 12-04-2023 GFR/1.73 sq M.predicted MDRD (S/P/Bld) [Vol rate/Area] mL/min/{1.73_m2} Normal [facility] Comment on above: Performed By: #### C 3, CH50, C4 #### [facility] , #### ADDONUAPLUS, CRP, CREAT, ESR, CBC #### [address] Creatinine [Mass/volume] in Serum or PlasmaOrdered By: Salinas White on 12-04-2023 Creatinine [Mass/Vol] 0.71 mg/dL Normal 0.60-1.20 [facility] Comment on above: Performed By: #### C 3, CH50, C4 #### [facility] , #### ADDONUAPLUS, CRP, CREAT, ESR, CBC #### [address] Dipstick and Microscopicon 1 Bacteria,Urine Rare Normal None Seen [facility] Comment on above: Order Comment: Name Collection Type:: Clean-Voided Midstream Performed By: #### C 3, CH50, C4 #### [facility] , #### ADDONUAPLUS, CRP, CREAT, ESR, CBC #### [facility] [address] [place] [address] Bilirubin,Urine Negative Normal Negative [facility] Comment on above: Order Comment: Name Collection Type:: Clean-Voided Midstream Performed By: #### C 3, CH50, C4 #### [facility] , #### ADDONUAPLUS, CRP, CREAT, ESR, CBC #### [address] Glucose Ql (U) Normal Normal Normal [facility] Comment on above: Order Comment: Name Collection Type:: Clean-Voided Midstream Performed By: #### C 3, CH50, C4 #### [facility] , #### ADDONUAPLUS, CRP, CREAT, ESR, CBC #### [address] Hyaline Casts,Urine None Normal 0-8 [facility] Comment on above: Order Comment: Name Collection Type:: Clean-Voided Midstream Performed By: #### C 3, CH50, C4 #### [facility] , #### ADDONUAPLUS, CRP, CREAT, ESR, CBC #### [address] Mucus,Urine Rare Normal [facility] Comment on above: Order Comment: Name Collection Type:: Clean-Voided Midstream Result Comment: PERF ORMED BY: [place] [address] PATHOLOGIST BATCH MIXER OPERATOR LYDIA JACKSON M.D. Performed By: #### C 3, CH50, C4 #### [facility] , #### ADDONUAPLUS, CRP, CREAT, ESR, CBC #### [address] Nitrite,Urine Negative Normal Negative [facility] Comment on above: Order Comment: Name Collection Type:: Clean-Voided Midstream Performed By: #### C 3, CH50, C4 #### [facility] , #### ADDONUAPLUS, CRP, CREAT, ESR, CBC #### [address] Occult Blood,Urine Negative Normal Negative [facility] Comment on above: Order Comment: Name Collection Type:: Clean-Voided Midstream Performed By: #### C 3, CH50, C4 #### [facility] , #### ADDONUAPLUS, CRP, CREAT, ESR, CBC #### [address] Protein,Urine Negative Normal Negative [facility] Comment on above: Order Comment: Name Collection Type:: Clean-Voided Midstream Performed By: #### C 3, CH50, C4 #### [facility] , #### ADDONUAPLUS, CRP, CREAT, ESR, CBC #### [address] RBC,Urine None Seen Normal 0-4 [facility] Comment on above: Order Comment: Name Collection Type:: Clean-Voided Midstream Performed By: #### C 3, CH50, C4 #### [facility] , #### ADDONUAPLUS, CRP, CREAT, ESR, CBC #### [address] Specificy [place],Urine 1.018 Normal 1.001-1.030 [facility] Comment on above: Order Comment: Name Collection Type:: Clean-Voided Midstream Performed By: #### C 3, CH50, C4 #### [facility] , #### ADDONUAPLUS, CRP, CREAT, ESR, CBC #### [address] Squamous Epithelial Cell,Urine 3-4 High 0-2 [facility] Comment on above: Order Comment: Name Collection Type:: Clean-Voided Midstream Performed By: #### C 3, CH50, C4 #### [facility] , #### ADDONUAPLUS, CRP, CREAT, ESR, CBC #### [address] Urobilinogen,Urine Normal Normal Normal [facility] Comment on above: Order Comment: Name Collection Type:: Clean-Voided Midstream Performed By: #### C 3, CH50, C4 #### [facility] , #### ADDONUAPLUS, CRP, CREAT, ESR, CBC #### [address] WBC,Urine 1-2 Normal 0-4 [facility] Comment on above: Order Comment: Name Collection Type:: Clean-Voided Midstream Performed By: #### C 3, CH50, C4 #### [facility] , #### ADDONUAPLUS, CRP, CREAT, ESR, CBC #### [address] Epithelial cells.squamous [# /area] in Urine sediment by Automated countOrdered By: Salinas White on 12-04-2023 Epithelial cells.squamous Auto (Urine sed) [#/Area] 3-4 [HPF] High 0-2 [facility] Erythrocyte Sedimentation Ra florentino 12-04-2023 ESR (Bld) [Velocity] 6 mm/h Normal 0-19 [facility] Comment on above: Result Comment: PERF ORMED BY: [place] [address] PATHOLOGIST BATCH MIXER OPERATOR LYDIA JACKSON M.D. Performed By: #### C 3, CH50, C4 #### [facility] , #### ADDONUAPLUS, CRP, CREAT, ESR, CBC #### [address] Erythrocyte distribution wid th [Ratio] by Automated countOrdered By: Salinas White on 12-04-2023 Erythrocyte distribution width (RBC) [Ratio] 13.1 % Normal 11.9-15.3 [facility] Comment on above: Performed By: #### C 3, CH50, C4 #### [facility] , #### ADDONUAPLUS, CRP, CREAT, ESR, CBC #### [address] Erythrocyte sedimentation ra te by Photometric methodOrdered By: Salinas White on 12-04-2023 ESR Photometric method (Bld) [Velocity] 6 mm/hr 0-19 [facility] Erythrocytes [#/area] in Uri ne sediment by Automated countOrdered By: Salinas White on 12-04-2023 RBC Auto (Urine sed) [#/Area] None seen [HPF] 0-4 [facility] Erythrocytes [#/volume] in B lood by Automated countOrdered By: Salinas White on 12-04-2023 RBC (Bld) [#/Vol] 4.65 10*6/uL Normal 3.60-5.00 [facility] Comment on above: Performed By: #### C 3, CH50, C4 #### [facility] , #### ADDONUAPLUS, CRP, CREAT, ESR, CBC #### [facility] [address] [place] [address] Glucose [Mass/volume] in Uri ne by Test stripOrdered By: Salinas Whiet on 12-04-2023 Glucose Test strip (U) [Mass/Vol] Normal mg/dL Normal [facility] Hematocrit [Volume Fraction] of Blood by Automated countOrdered By: Salinas White on 12-04-2023 Hematocrit (Bld) [Volume fraction] 41.2 % Normal 34.0-46.4 [facility] Comment on above: Performed By: #### C 3, CH50, C4 #### [facility] , #### ADDONUAPLUS, CRP, CREAT, ESR, CBC #### [facility] [address] [place] [address] Hemoglobin Test strip Ql (U) Ordered By: Salinas White on 12-04-2023 Hemoglobin Ql (U) Negative Negative [facility] Hemoglobin [Mass/volume] in BloodOrdered By: Salinas White on 12-04-2023 Hemoglobin (Bld) [Mass/Vol] 14.1 g/dL Normal 11.8-15.4 [facility] Comment on above: Performed By: #### C 3, CH50, C4 #### [facility] , #### ADDONUAPLUS, CRP, CREAT, ESR, CBC #### [facility] [address] [place] [address] [place] Hyaline casts [#/area] in Ur ine sediment by Automated countOrdered By: Salinas White on 12-04-2023 Hyaline casts Auto (Urine sed) [#/Area] None [LPF] 0-8 [facility] Ketones [Presence] in Urine by Test stripOrdered By: Salinas White on 12-04-2023 Ketones Ql (U) Negative Normal Negative [facility] Comment on above: Order Comment: Name Collection Type:: Clean-Voided Midstream Performed By: #### C 3, CH50, C4 #### [facility] , #### ADDONUAPLUS, CRP, CREAT, ESR, CBC #### [facility] [address] [place] [address] [place] Leukocyte esterase [Presence ] in Urine by Test stripOrdered By: Salinas White on 12-04-2023 Leukocyte esterase Test strip Ql (U) Negative Normal Negative [facility] Comment on above: Order Comment: Name Collection Type:: Clean-Voided Midstream Performed By: #### C 3, CH50, C4 #### [facility] , #### ADDONUAPLUS, CRP, CREAT, ESR, CBC #### [facility] [address] [place] [address] [place] Leukocytes [#/area] in Urine sediment by Automated countOrdered By: Salinas White on 12-04-2023 WBC Auto (Urine sed) [#/Area] 1-2 [HPF] 0-4 [facility] Leukocytes [#/volume] correc carol for nucleated erythrocytes in Blood by Automated counOrdered By: Salinas White on 12-04-2023 WBC corrected for nucl RBC Auto (Bld) [#/Vol] 4.5 10*3/uL 3.8-11.6 [facility] Leukocytes [#/volume] in Blo od by Automated countOrdered By: Salinas White on 12-04-2023 WBC (Bld) [#/Vol] 4.5 10*3/uL Normal 3.8-11.6 [facility] Comment on above: Performed By: #### C 3, CH50, C4 #### [facility] , #### ADDONUAPLUS, CRP, CREAT, ESR, CBC #### [address] Lymphocytes [#/volume] in Bl ood by Automated countOrdered By: Salinas White on 12-04-2023 Lymphocytes (Bld) [#/Vol] 1.8 10*3/uL Normal 1.00-4.8 [facility] Comment on above: Performed By: #### C 3, CH50, C4 #### [facility] , #### ADDONUAPLUS, CRP, CREAT, ESR, CBC #### [address] Lymphocytes/100 leukocytes i n Blood by Automated countOrdered By: Salinas White on 12-04-2023 Lymphocytes/100 WBC (Bld) 40.3 % Normal . [facility] Comment on above: Performed By: #### C 3, CH50, C4 #### [facility] , #### ADDONUAPLUS, CRP, CREAT, ESR, CBC #### [address] MCH [Entitic mass] by Automa carol countOrdered By: Salinas White on 12-04-2023 MCH (RBC) [Entitic mass] 30.3 pg Normal 24.7-34.3 [facility] Comment on above: Performed By: #### C 3, CH50, C4 #### [facility] , #### ADDONUAPLUS, CRP, CREAT, ESR, CBC #### [address] MCHC Auto (RBC) [Mass/Vol]Or dered By: Salinas White on 12-04-2023 MCHC (RBC) [Mass/Vol] 34.1 g/dL 32.0-35.0 [facility] MCV [Entitic volume] by Auto mated countOrdered By: Salinas White on 12-04-2023 MCV (RBC) [Entitic vol] 88.7 fL Normal 80-100 [facility] Comment on above: Performed By: #### C 3, CH50, C4 #### [facility] , #### ADDONUAPLUS, CRP, CREAT, ESR, CBC #### [facility] [address] [place] [address] Mucus [Presence] in Urine by AutomatedOrdered By: Salinas White on 12-04-2023 Mucus Auto Ql (U) Rare [LPF] [facility] Neutrophils [#/volume] in Bl ood by Automated countOrdered By: Salinas White on 12-04-2023 Neutrophils (Bld) [#/Vol] 2.3 10*3/uL Normal 1.8-7.7 [facility] Comment on above: Performed By: #### C 3, CH50, C4 #### [facility] , #### ADDONUAPLUS, CRP, CREAT, ESR, CBC #### [facility] [address] [place] [address] Nitrite Test strip Ql (U)Ord ered By: Salinas White on 12-04-2023 Nitrite Ql (U) Negative Negative [facility] No Panel InformationOrdered By: Salinas White on 12-04-2023 Estimated GFR (CKD-EPI) > 60.0 mL/Min [facility] Creatinine Clearance (Chem N/A [facility] Nucleated erythrocytes [Pres ence] in Blood by Automated countOrdered By: Salinas White on 12-04-2023 Nucleated RBC Auto Ql (Bld) 0.1 /100{WBC} 0-0.5 [facility] Platelet mean volume [Entiti c volume] in Blood by Automated countOrdered By: Salinas White on 12-04-2023 Platelet mean volume (Bld) [Entitic vol] 9.7 fL Normal 6.3-10.7 [facility] Comment on above: Performed By: #### C 3, CH50, C4 #### [facility] , #### ADDONUAPLUS, CRP, CREAT, ESR, CBC #### [facility] [address] [place] [address] Platelets [#/volume] in Bloo d by Automated countOrdered By: Salinas White on 12-04-2023 Platelets (Bld) [#/Vol] 205 10*3/uL Normal 150-450 [facility] Comment on above: Performed By: #### C 3, CH50, C4 #### [facility] , #### ADDONUAPLUS, CRP, CREAT, ESR, CBC #### [facility] [address] [place] [address] Protein Test strip (U) [Mass /Vol]Ordered By: Salinas White on 12-04-2023 Protein (U) [Mass/Vol] Negative Negative [facility] Specific gravity Test strip (U) [Rel density]Ordered By: Salinas White on 12-04-2023 Specific gravity (U) [Rel density] 1.018 1.001-1.030 [facility] Urine appearanceOrdered By: Salinas White on 12-04-2023 Appearance (U) Clear Normal Clear [facility] Comment on above: Order Comment: Name Collection Type:: Clean-Voided Midstream Performed By: #### C 3, CH50, C4 #### [facility] , #### ADDONUAPLUS, CRP, CREAT, ESR, CBC #### [facility] [address] [place] [address] Urobilinogen Test strip (U) [Mass/Vol]Ordered By: Salinas White on 12-04-2023 Urobilinogen (U) [Mass/Vol] Normal mg/dL Normal [facility] pH of Urine by Test stripOrd ered By: Salinas White on 12-04-2023 pH (U) 6.0 [pH] Normal 5.0-9.0 [facility] Comment on above: Order Comment: Name Collection Type:: Clean-Voided Midstream Performed By: #### C 3, CH50, C4 #### [facility] , #### ADDONUAPLUS, CRP, CREAT, ESR, CBC #### [facility] [address] [place] [id number] [facility] ED Note-Physicianon 09-29-19 ED Note-Physician ED Note-Physician Basic Information Time Seen: Fadi Mccoy PA-C 09/23/2023 11:00 Chief Complaint felt off since [...] prescription medications Follow-up With When Contact Information YESCIA NICKERSON In 3 days 09/26/2023 EDT [address] [place] [address] [phone] Business (1) Additional Instructions: Patient Education Dizziness [...] made to ensure accuracy, however, inadvertently computerized director of nuclear medicine mistakes may be present. Appropriate healthcare PPE [...] compounds (Rash) (more content not included)... Normal [facility] Comment on above: Result Comment: Elec tronically Signed By: Fadi Mccoy PA-C\.br\Date and Time Signed: 09/23/23 12:54 EDT\.br\Electronically Co-Signed By: Boby Cevallos DO\.br\Date and Time Co-Signed: 09/29/23 09:31 EDT BB Draw & Holdon 09-23-2023 BB D&H Sample drawn for Blood Ba Normal [facility] Comment on above: Performed By: #### 1 [id number] #### [facility] [address] [place] [address] CBC w/ Auto Diffon 4 Basophils/100 WBC (Bld) 0.6 % Normal 0.0-2.0 [facility] Comment on above: Performed By: #### 2 [id number] #### [facility] [address] [place] [address] Basophils/Leukocytes Auto (Bld) [Pure # fraction] 0.0 E9/L Normal 0.0-0.2 [facility] Comment on above: Performed By: #### 2 [id number] #### [facility] [address] [place] [address] Eosinophils (Bld) [#/Vol] 0.0 E9/L Normal 0.0-0.5 [facility] Comment on above: Performed By: #### 2 [id number] #### [facility] [address] [place] [address] Eosinophils/100 WBC (Bld) 0.6 % Normal 0.0-8.0 [facility] Comment on above: Performed By: #### 2 [id number] #### [facility] [address] [place] [address] Erythrocyte distribution width (RBC) [Ratio] 12.8 % Normal 10.9-14.2 [facility] Comment on above: Performed By: #### 2 [id number] #### [facility] [address] [place] [address] Hematocrit (Bld) [Volume fraction] 42.7 % Normal 34.0-46.0 [facility] Comment on above: Performed By: #### 2 [id number] #### [facility] [address] [place] [address] Hemoglobin (Bld) [Mass/Vol] 14.7 g/dL Normal 12.0-16.0 [facility] Comment on above: Performed By: #### 2 [id number] #### [facility] [address] [place] [address] Lymphocytes (Bld) [#/Vol] 1.8 E9/L Normal 1.0-4.0 [facility] Comment on above: Performed By: #### 2 [id number] #### [facility] [address] [place] [address] Lymphocytes/100 WBC (Bld) 30.1 % Normal 14.0-50.0 [facility] Comment on above: Performed By: #### 2 [id number] #### [facility] [address] [place] [address] MCH (RBC) [Entitic mass] 29.9 pg Normal 27.0-34.0 [facility] Comment on above: Performed By: #### 2 [id number] #### [facility] [address] [place] [address] MCHC (RBC) [Mass/Vol] 34.4 g/dL Normal 31.4-36.0 [facility] Comment on above: Performed By: #### 2 [id number] #### [facility] [address] [place] [address] MCV (RBC) [Entitic vol] 86.8 fL Normal 80.0-100.0 [facility] Comment on above: Performed By: #### 2 [id number] #### [facility] [address] [place] [address] Monocytes (Bld) [#/Vol] 0.4 E9/L Normal 0.2-1.0 [facility] Comment on above: Performed By: #### 2 [id number] #### [facility] [address] [place] [address] Neutrophils (Bld) [#/Vol] 3.7 E9/L Normal 2.0-7.5 [facility] Comment on above: Performed By: #### 2 [id number] #### [facility] [address] [place] [address] Neutrophils/100 WBC (Bld) 61.2 % Normal 36.0-75.0 [facility] Comment on above: Performed By: #### 2 [id number] #### [facility] [address] [place] [address] Platelet mean volume (Bld) [Entitic vol] 9.4 fL Normal 6.4-10.8 [facility] Comment on above: Performed By: #### 2 [id number] #### [facility] [address] [place] [address] Platelets (Bld) [#/Vol] 184.0 E9/L Normal 150.0-500.0 [facility] Comment on above: Performed By: #### 2 [id number] #### [facility] [address] [place] [address] RBC (Bld) [#/Vol] 4.9 E12/L Normal 4.3-5.9 [facility] Comment on above: Performed By: #### 2 [id number] #### [facility] [address] [place] [address] WBC corrected for nucl RBC Auto (Bld) [#/Vol] 6.0 E9/L Normal 4.0-11.0 [facility] Comment on above: Performed By: #### 2 [id number] #### [facility] [address] [place] [address] CHEMISTRYOrdered By: SYSTEM SYSTEM on 09-23-2023 Albumin [...] Sensitivity Troponin I Instructions For Use, Angel [employer], September 2017) Urea nitrogen [Mass/Vol] 24 mg/dL High 5 - 21 mg/dL [facility] Urea nitrogen/Creatinine [Mass ratio] 27 mg/mg High 10 - 20 [facility] CHEMISTRYOrdered By: Lab ROP User on 09-23-2023 Glucose [Mass/Vol] 89 mg/dL Normal 55 - 99 mg/dL [facility] POC Subsection Comment on above: Result Comment: Trixie dominique Meter POC Device SN [id number] 1 Invalid Interpretation Code [facility] POC Subsection POC User ID [id number] 1 Invalid Interpretation Code [facility] POC Subsection POC Username OksanaBretEARLINE TERRANCEJERICHO Invalid Interpretation Code [facility] POC Subsection CMPon 09-23-2023 Albumin [Mass/Vol] 4.7 g/dL Normal 3.3-5.0 [facility] Comment on above: Performed By: #### 2 [id number] #### [facility] [address] [place] [address] Albumin/Globulin (S) [Mass conc ratio] 2.0 Normal 1.1-2.2 [facility] Comment on above: Performed By: #### 2 [id number] #### [facility] [address] [place] [address] ALP [Catalytic activity/Vol] 47 Int._Unit/L Normal 21-98 [facility] Comment on above: Performed By: #### 2 [id number] #### [facility] [address] [place] [address] ALT No additional P-5'-P [Catalytic activity/Vol] 22 Int._Unit/L Normal 6-46 [facility] Comment on above: Performed By: #### 2 [id number] #### [facility] [address] [place] [address] Anion gap [Moles/Vol] 10 mmol/L Normal 6-16 [facility] Comment on above: Performed By: #### 2 [id number] #### [facility] [address] [place] [address] AST [Catalytic activity/Vol] 19 Int._Unit/L Normal 5-43 [facility] Comment on above: Performed By: #### 2 [id number] #### [facility] [address] [place] [address] Bilirubin [Mass/Vol] 0.4 mg/dL Normal 0.0-1.1 [facility] Comment on above: Performed By: #### 2 [id number] #### [facility] [address] [place] [address] Calcium [Mass/Vol] 9.9 mg/dL Normal 8.9-11.1 [facility] Comment on above: Performed By: #### 2 [id number] #### [facility] [address] [place] [address] Chloride [Moles/Vol] 104 mmol/L Normal 101-111 [facility] Comment on above: Performed By: #### 2 [id number] #### [facility] [address] [place] [address] CO2 [Moles/Vol] 31 mmol/L Normal 21-31 [facility] Comment on above: Performed By: #### 2 [id number] #### [facility] [address] [place] [address] Creatinine [Mass/Vol] 0.9 mg/dL Normal 0.5-1.3 [facility] Comment on above: Performed By: #### 2 [id number] #### [facility] [address] [place] [address] Globulin (S) [Mass/Vol] 2.4 g/dL Normal 1.4-4.0 [facility] Comment on above: Performed By: #### 2 441200 #### [facility] [address] [place] [address] Glucose [Mass/Vol] 101 mg/dL Normal 55-199 [facility] Comment on above: Performed By: #### 2 717208 #### [facility] [address] [place] [address] Potassium [Moles/Vol] 3.5 mmol/L Normal 3.5-5.3 [facility] Comment on above: Performed By: #### 2 [id number] #### [facility] [address] [place] [address] Protein [Mass/Vol] 7.1 g/dL Normal 6.0-7.8 [facility] Comment on above: Performed By: #### 2 [id number] #### [facility] [address] [place] [address] Sodium [Moles/Vol] 141 mmol/L Normal 135-145 [facility] Comment on above: Performed By: #### 2 701151 #### [facility] [address] [place] [address] Urea nitrogen [Mass/Vol] 24 mg/dL High 5-21 [facility] Comment on above: Performed By: #### 2 674148 #### [facility] [address] [place] [address] Urea nitrogen/Creatinine [Mass ratio] 27 No Units High 10-20 [facility] Comment on above: Performed By: #### 2 [id number] #### [facility] [address] [place] [address] COAGULATIONOrdered By: Abigail Robles on 09-23-2023 aPTT Coag (PPP) [Time] 35.1 s Normal 25.1 - 36.5 second(s) [facility] Auto Coag Comment on above: Interpretive Data: Xochitl fernándezmeter 15 days - 4 weeks 1 - [...] the same coagulation reagent and instrumentation as [facility]. Currently there are no coagulation studies available worldwide for children to 14 days, and no normal ranges. Heparin therapeutic range (represented by Anti-Factor Xa activity of 0.2 - 0.4 U/mL) corresponds to PTT of 56.6 - 109.0 sec. INR Coag (PPP) [Relative time] 1.01 {INR} Invalid Interpretation Code [facility] Auto Coag Comment on above: Interpretive Data: I NR results are specifically intended to assess patients stabilized on long-term Anticoagulation therapy suggested INR s Less Intensive Anticoagulation 2.0 3.0 Conventional Range 3.0 4.5 PT Coag (PPP) [Time] 11.3 s Normal 9.4 - 1 2.5 second(s) [facility] Auto Coag Comment on [...] the same coagulation reagent and instrumentation as [facility]. Currently there are no [...] Eliu Zhao M.D. neg for bleed. Normal [facility] Capillary Glucose POCon Glucose [Mass/Vol] 89 mg/dL Normal 55-99 [facility] Comment on above: Result Comment: Trixie dominique Meter Performed By: #### 2 [id number] #### [facility] [address] [place] [address] ED Clinical Summaryon 2023 ED Clinical Summary ED Clinical Summary [address] [address] ED Clinical Summary Person Information Name: AUDREY ISAACS [facility] Age: 48 Years : 1975 Sex: Female Language: Emirati PCP: YESICA NICKERSON CNP Marital Status: Visit [...] 09/23/2023 13:01:25 09/23/2023 13:01:25 09/23/2023 13:01:25 ADDRESS: [address] [place] [phone] PHYS DOC NOTES: MEDICAL INFORMATION: Prescriptions Given: Medications to Continue with No Changes Other Medications alprazolam (alprazolam 0.25 mg Tab) 30 tab(s). metaxalone (metaxalone 800 mg Tab) omeprazole (omeprazole 40 mg Cap-DR) 30 EA, TAKE 1 CAPSULE BY MOUTH EVERY DAY. PATIENT EDUCATION INFORMATION: Instructions: Dizziness Follow up: With: Address: When: YESICA NICKERSON [address] [facility] [place], [place] [phone] Business (1) In 3 days 09/26/2023 DIAGNOSIS: Dizziness; Weakness Normal [facility] ED Patient Summaryon 024 ED Patient Summary ED Patient Summary [address] [address] Patient Discharge Instructions Person Information Name: AUDREY ISAACS Age: 48 Years Arrival Date: 09/23/2023 10:54:19 Discharge Diagnosis: Dizziness; Weakness Primary Care Physician: YESICA NICKERSON CNP Provider Information Primary Provider: Boby Cevallos DO [employer] Specialist:Fadi Mccoy PA-C The exam and treatment you received in the Emergency Department were for an urgent problem and are not intended as complete care. It is important that you follow up with a doctor, nurse practitioner, or physician?s power plant assistant for ongoing care. If your symptoms become worse or you do not improve as expected and you are unable to reach your usual health care provider, you should return to the Emergency Department. We are available 24 hours a day. AUDREY ISAACS has been given the following list of patient education materials, prescriptions and follow-up instructions: Follow-up Instructions: With: Address: When: YESICA NICKERSON [address] [place], [place] [phone] Business (1) In 3 days 09/26/2023 In the event that this physician does not participate in your insurance network, please consult with your insurance company to find a nearby participating provider. Patient Education Materials: Dizziness A MESSAGE TO ALL PATIENTS REGARDING OPIOIDS PRESCRIPTION OPIOIDS: WHAT YOU NEED TO KNOW Prescription opioids can be used to help relieve ctrinsih-il-tnryvr pain and are often prescribed following a [...] be struggling with addiction, tell your health critical care transport nurse and ask for guidance or call [employer]?S National Helpline at 3-013-478-PQA (more content not included)... Normal [facility] HEMATOLOGYOrdered By: Siobhan Robles on 09-23-2023 Basophils/100 [...] Coag (PPP) [Time] 35.1 second(s) Normal 25.1-36.5 [facility] Comment on above: Result Comment: Para meter [...] the same coagulation reagent and instrumentation as [facility]. Currently there are no coagulation studies available worldwide for children to 14 days, and no normal ranges. Heparin therapeutic range (represented by Anti-Factor Xa activity of 0.2 - 0.4 U/mL) corresponds to PTT of 56.6 - 109.0 sec. Performed By: #### 1 [id number] #### [facility] [address] [place] [address] INR Coag (PPP) [Relative time] 1.01 {INR} Invalid Interpretation Code [facility] Comment on above: Result Comment: INR results are specifically intended to assess patients stabilized on long-term Anticoagulation therapy suggested INR?s ?Less Intensive Anticoagulation? 2.0 ? 3.0 Conventional Range 3.0 ? 4.5 Performed By: #### 1 [id number] #### [facility] [address] [place] [address] PT Coag (PPP) [Time] 11.3 second(s) Normal 9.4-12.5 [facility] Comment on above: Result Comment: 15 d [...] the same coagulation reagent and instrumentation as [facility]. Currently there are no coagulation studies available worldwide for children to 14 days, and no normal ranges. Performed By: #### 1 [id number] #### [facility] [address] [place] [id number] Troponin 0 Hr.on 09-23-2023 Troponin HS <2.30 Low 10.10-27.10 [facility] Comment on above: Result Comment: The 95% CI (Confidence Interval) PPV (Positive Predictive Value) for myocardial infarction in females is 38 pg/mL, in males 51 pg/mL. The results should be used in conjunction with clinical conditions of myocardial infarction. (Access High Sensitivity Troponin I Instructions For Use, [employer], September 2017) Performed By: #### 1 [id number] #### [facility] [address] [place] [address] UA with Cult Rflxon 09-23-19 24 Bilirubin Ql (U) Negative Normal Negative [facility] Comment on above: Performed By: #### 4 [id number] #### [facility] [address] [place] [address] Clarity (U) Clear Normal Clear [facility] Comment on above: Performed By: #### 4 [id number] #### [facility] [address] [place] [address] Color (U) Light-Yellow Normal Yellow [facility] Comment on above: Result Comment: Micr oscopic readings are only performed on those samples that meet specific criteria set forth by [facility]. Performed By: #### 4 [id number] #### [facility] [address] [place] [address] Glucose Ql (U) Negative Normal Negative [facility] Comment on above: Performed By: #### 4 [id number] #### [facility] [address] [place] [address] Hemoglobin Auto test strip (U) [Mass/Vol] Negative Normal Negative [facility] Comment on above: Performed By: #### 4 [id number] #### [facility] [address] [place] [address] Ketones Auto test strip Ql (U) Negative Normal Negative [facility] Comment on above: Performed By: #### 4 [id number] #### [facility] [address] [place] [address] Leukocyte esterase Auto test strip Ql (U) Negative Normal Negative [facility] Comment on above: Performed By: #### 4 [id number] #### [facility] [address] [place] [address] Nitrite Auto test strip Ql (U) Negative Normal Negative [facility] Comment on above: Performed By: #### 4 [id number] #### [facility] [address] [place] [address] pH (U) 5.5 [pH] Invalid Interpretation Code 5.0-9.0 [facility] Comment on above: Performed By: #### 4 [id number] #### [facility] [address] [place] [address] Protein Ql (U) Negative Normal Negative [facility] Comment on above: Performed By: #### 4 [id number] #### [facility] [address] [place] [address] Specific gravity (U) [Rel density] 1.023 Invalid Interpretation Code 1.005-1.030 [facility] Comment on above: Performed By: #### 4 [id number] #### [facility] [address] [place] [address] Urobilinogen (U) [Mass/Vol] Negative Normal Negative [facility] Comment on above: Performed By: #### 4 [id number] #### [facility] [address] [place] [address] Type of Urine collection method Clean Catch Normal [facility] Comment on above: Performed By: #### 4 [id number] #### [facility] [address] [place] [address] URINALYSISOrdered By: SYSTEM SYSTEM on 09-23-2023 Bilirubin Ql (U) Negative Normal Negativemg/ d L [facility] UA Auto SS Clarity (U) Clear (09/23/23 12:16 PM) Normal Clear [facility] UA Auto SS Color (U) Light-Yellow 1 (09/23/23 12:16 PM) Normal Yellow [facility] UA Auto SS Comment on above: Interpretive Data: M icroscopic readings are only performed on those samples that meet specific criteria set forth by [facility]. Glucose Ql (U) Negative Normal Negativemg/d L [facility] UA Auto SS Hemoglobin Auto test strip [...] PM) Invalid Interpretation Code 5.0 - 9.0 [facility] UA Auto SS Protein Ql (U) Negative Normal Negativemg/d L [facility] UA Auto SS Specific gravity (U) [Rel density] 1.023 *NA* (09/23/23 12:16 PM) Invalid Interpretation Code 1.005 - 1.030 [facility] UA Auto SS Urobilinogen (U) [Mass/Vol] Negative Normal Negativemg/d L [facility] UA Auto SS URINALYSISOrdered By: Fadi Mccoy on 09-23-2023 UA Spec Desc Clean Catch (09/23/23 12:16 PM) Normal [facility] UA Auto SS XR Chest Single Viewon [...] mGy = na DAP = na Normal [facility] eGFRon 09-23-2023 eGFR 79 mL/min/1.73 m2 Normal >=59 [facility] Comment on above: Order Comment: Order added by Discern Expert. Performed By: #### 1 [id number] #### [facility] [address] [place] [address] COVID Quick Testingon 2022 Result Positive [facility] [facility] [employer] Other No Panel InformationOrdered By: Gopal Potter on 06-28-2022 Cortisol Response to Stimulation See comment [facility] Comment on above: [employer] 11.4 Col: 06/28/22 1000 [employer] 30Min 20.6 Col: 06/28/22 1050 [place] 60Min 23.2 Col: 06/28/22 1120 Quick Strepon 06-11-2022 S. pyogenes Org specific cx Ql (Throat) Negative [employer] Other Quick Strep [facility] [facility] [employer] Other PROF CHEM 8 (BAS METB)on Anion gap [Moles/Vol] 10.7 mmol/L Normal [facility] Comment on above: Performed By: #### B MP #### [facility] [address] [address] [address] Brandon Hodges Calcium [Mass/Vol] 9.3 mg/dL Normal 8.5-10.1 [facility] Comment on above: Performed By: #### B MP #### [facility] [address] [place] [address] Dr. Brandon Hodges Chloride [Moles/Vol] 103 mmol/L Normal 98-107 [facility] Comment on above: Performed By: #### B MP #### [facility] [address] [address] [address] Brandon Hodges CO2 [Moles/Vol] 31.5 mmol/L Normal 21.0-32.0 [facility] Comment on above: Performed By: #### B MP #### [facility] [address] [place] [address] Dr. Brandon Hodges Creatinine [Mass/Vol] 0.76 mg/dL Normal 0.55-1.02 [facility] Comment on above: Performed By: #### B MP #### [facility] [address] [place] [address] Dr. Brandon Hodges EGFR-AF PALESTINIAN >60 Normal >=60 [facility] Comment on above: Performed By: #### B MP #### [facility] [address] [place] [address] Dr. Brandon Hodges EGFR-NON AF PALESTINIAN >60 Normal >=60 [facility] Comment on above: Performed By: #### B MP #### [facility] [address] [place] [address] Dr. Brandon Hodges Glucose [Mass/Vol] 124 mg/dL Critically high 74-106 [facility] Comment on above: Performed By: #### B MP #### [facility] [address] [place] [address] Dr. Brandon Hodges Potassium [Moles/Vol] 4.2 mmol/L Normal 3.5-5.1 [facility] Comment on above: Performed By: #### B MP #### [facility] [address] [place] [address] Dr. Brandon Hodges Sodium [Moles/Vol] 141 mmol/L Normal 136-145 [facility] Comment on above: Performed By: #### B MP #### [facility] [address] [place] [address] Dr. Brandon Hodges Urea nitrogen [Mass/Vol] 19.0 mg/dL Critically high 7.0-18.0 [facility] Comment on above: Performed By: #### B MP #### [facility] [address] [place] [address] Dr. Brandon Hodges Urea nitrogen/Creatinine [Mass ratio] 25.0 mg/mg Normal [facility] Comment on above: Performed By: #### B MP #### [facility] [address] [place] [address] Dr. Brandon Hodges TESTOSTERONE, FREE,DIRECT, T OTALon 04-25-2022 Free Testosterone(Direct) <0.2 Normal 0.0-4.2 [facility] Comment on above: Result Comment: Perf ormed at: BN Performed By: #### I NSULIN #### [facility] [address] [place] [address] Dr. Brandon Hodges Testosterone [Mass/Vol] 3 ng/dL Critically low 4-50 [facility] Comment on above: Result Comment: Perf ormed at: CB Performed By: #### I NSULIN #### [facility] [address] [place] [address] Dr. Brandon Hodges ESTRONEon 04-23-2022 Estrone, Serum 20 pg/mL Normal [facility] Comment on above: Result Comment: Rang e Adult (Premenopausal) 27 - 231 Menstrual Cycle (1-10 days) 19 - 149 Menstrual Cycle (11-20 days) 32 - 176 Menstrual Cycle (21-30 days) 37 - 200 Adult (Postmenopausal) 0 - 125 Performed By: #### I NSULIN #### [facility] [address] [place] [address] Dr. Brandon Hodges REVERSE T3on 04-23-2022 Reverse T3, Serum 36.8 ng/dL Critically high 9.2-24.1 [facility] Comment on above: Result Comment: This test was developed and its performance characteristics determined by [employer]. It has not been cleared or approved by the Food and Drug Administration. Performed By: #### B MP #### [facility] [address] [address] [address] Brandon Hodges CORTISOLon 04-20-2022 Cortisol 1.0 ug/dL Normal [facility] Comment on above: Result Comment: [place] isol AM 6.2 - 19.4 Cortisol PM 2.3 - 11.9 Performed By: #### C ORTISO #### [facility] [address] [place] [address] Dr. Brandon Hodges DHEA-SULFATEon 04-20-2022 DHEA-Sulfate 55.9 ug/dL Normal 41.2-243.7 [facility] Comment on above: Performed By: #### I NSULIN #### [facility] [address] [place] [address] Dr. Brandon Hodges ESTRADIOLon 04-20-2022 Estradiol 25.1 pg/mL Normal [facility] Comment on above: Result Comment: Adul t Female: Follicular phase 12.5 - 166.0 Ovulation phase 85.8 - 498.0 Luteal phase 43.8 - 211.0 Postmenopausal <6.0 - 54.7 1st trimester 215.0 - >4300.0 Jason ECLIA methodology Performed By: #### B MP #### [facility] [address] [place] [address] Dr. Brandon Hodges INSULINon 04-20-2022 Insulin 30.0 uIU/mL Critically high 2.6-24.9 [facility] Comment on above: Performed By: #### I NSULIN #### [facility] [address] [place] [address] Dr. Brandon Hodges PROGESTERONEon 04-20-2022 Progesterone <0.[address] [facility] Comment on above: Result Comment: Foll icular phase 0.1 - 0.9 Luteal phase 1.8 - 23.9 Ovulation phase 0.1 - 12.0 First trimester 11.0 - 44.3 Second trimester 25.4 - 83.3 Third trimester 58.7 - 214.0 Postmenopausal 0.0 - 0.1 Performed By: #### B MP #### [facility] [address] [place] [address] Dr. Brandon Hodges SEX HORMONE-BINDING GLOBULIN on 04-20-2022 Sex Horm Binding Glob, Serum 30.3 nmol/L Normal 24.6-122.0 [facility] Comment on above: Performed By: #### B MP #### [facility] [address] [place] [address] Dr. Brandon Hodges FERRITINon 04-19-2022 Ferritin [Mass/Vol] 53.0 ng/mL Normal 6.2-137.0 [facility] Comment on above: Performed By: #### B MP #### [facility] [address] [place] [address] Dr. Brandon Hodges FREE T3on 04-19-2022 FREE T3 2.34 pg/mlL Normal 2.18-3.98 [facility] Comment on above: Performed By: #### T SH, T4, FT3, BMP, LIPID, LIVER #### [facility] [address] [place] [address] Dr. Brandon Hodges FREE T4on 04-19-2022 Free T4 [Mass/Vol] 0.92 ng/dL Normal 0.76-1.46 [facility] Comment on above: Performed By: #### B MP #### [facility] [address] [place] [address] Dr. Brandon Hodges GLYCOHEMOGLOBIN A1Con 2022 ADA RECOMMENDATION SEE BELOW Normal [facility] Comment on above: Result Comment: ADA RECOMMENDED LIMIT 4.0 - 6.0 ADA THERAPEUTIC TARGET < 7.0 ACTION SUGGESTED > 7.0 Performed By: #### A 1C #### [facility] [address] [place] [address] Dr. Brandon Hodges Glucose [Mass/Vol] 105 mg/dL Normal [facility] Comment on above: Performed By: #### A 1C #### [facility] [address] [place] [address] Dr. Brandon Hodges HbA1c (Bld) [Mass fraction] 5.3 % Normal 4.5-6.2 [facility] Comment on above: Performed By: #### A 1C #### [facility] [address] [place] [address] Dr. Brandon Hodges LIPID PROFILEon 04-19-2022 CHOL-HDL RATIO NORM SEE BELOW Normal [facility] Comment on above: Result Comment: 3.3 - 4.4 LOW RISK 4.4 - 7.1 AVERAGE RISK 7.1 - 11.0 MODERATE RISK >11.0 HIGH RISK Performed By: #### T SH, T4, FT3, BMP, LIPID, LIVER #### [facility] [address] [address] [address] Brandon Hodges Cholesterol [Mass/Vol] 258 mg/dL Critically high <=200 [facility] Comment on above: Performed By: #### T SH, T4, FT3, BMP, LIPID, LIVER #### [facility] [address] [address] [address] Brandon Hodges Cholesterol in HDL [Mass/Vol] 47 mg/dL Normal 40-60 [facility] Comment on above: Performed By: #### T SH, T4, FT3, BMP, LIPID, LIVER #### [facility] [address] [address] [address] Brandon Hodges Cholesterol in LDL [Mass/Vol] 199.0 mg/dL Normal [facility] Comment on above: Performed By: #### T SH, T4, FT3, BMP, LIPID, LIVER #### [facility] [address] [address] [address] Brandon Hodges Cholesterol.total/Chol esterol in HDL [Mass ratio] 5.5 {ratio} Normal [facility] Comment on above: Performed By: #### T SH, T4, FT3, BMP, LIPID, LIVER #### [facility] [address] [place] [address] Dr. Brandon Hodges HDL NORMAL > or = 60 mg/dl - LOW CARDIOVASCULAR RISK <40 mg/dl - HIGH CARDIOVASCULAR RISK Normal [facility] Comment on above: Performed By: #### T SH, T4, FT3, BMP, LIPID, LIVER #### [facility] [address] [place] [address] Dr. Brandon Hodges LDL CALC NORMAL SEE BELOW Normal [facility] Comment on above: Result Comment: <100 mg/dl OPTIMAL 100 - 129 mg/dl NEAR OR ABOVE OPTIMAL 130 - 159 mg/dl BORDERLINE HIGH 160 - 189 mg/dl HIGH >190 mg/dl VERY HIGH Performed By: #### T SH, T4, FT3, BMP, LIPID, LIVER #### [facility] [address] [address] [address] Brandon Hodges Triglyceride [Mass/Vol] 60 mg/dL Normal <=150 [facility] Comment on above: Performed By: #### T SH, T4, FT3, BMP, LIPID, LIVER #### [facility] [address] [place] [address] Dr. Brandon Hodges VLDL CALC 12.0 mg/dL Normal [facility] Comment on above: Performed By: #### T SH, T4, FT3, BMP, LIPID, LIVER #### [facility] [address] [place] [address] Dr. Brandon Hodges LIVER PROFILEon 04-19-2022 Albumin [Mass/Vol] 4.3 g/dL Normal 3.4-5.0 [facility] Comment on above: Performed By: #### T SH, T4, FT3, BMP, LIPID, LIVER #### [facility] [address] [place] [address] Dr. Brandon Hodges Albumin/Globulin [Mass ratio] 1.3 {ratio} Normal [facility] Comment on above: Performed By: #### T SH, T4, FT3, BMP, LIPID, LIVER #### [facility] [address] [address] [address] Brandon Hodges ALP [Catalytic activity/Vol] 86 U/L Normal 46-116 [facility] Comment on above: Performed By: #### T SH, T4, FT3, BMP, LIPID, LIVER #### [facility] [address] [address] [address] Brandon Hodges ALT [Catalytic activity/Vol] 31 U/L Normal 14-59 [facility] Comment on above: Performed By: #### T SH, T4, FT3, BMP, LIPID, LIVER #### [facility] [address] [address] [address] Brandon Hodges AST [Catalytic activity/Vol] 18 U/L Normal 15-37 [facility] Comment on above: Performed By: #### T SH, T4, FT3, BMP, LIPID, LIVER #### [facility] [address] [place] [address] Dr. Brandon Hodges BILI, CONJUGATED <0.1 Normal 0.0-0.2 [facility] Comment on above: Performed By: #### T SH, T4, FT3, BMP, LIPID, LIVER #### [facility] [address] [place] [address] Dr. Brandon Hodges Bilirubin [Mass/Vol] 0.3 mg/dL Normal 0.2-1.0 [facility] Comment on above: Performed By: #### T SH, T4, FT3, BMP, LIPID, LIVER #### [facility] [address] [place] [address] Dr. Brandon Hodges Globulin (S) [Mass/Vol] 3.4 g/dL Normal [facility] Comment on above: Performed By: #### T SH, T4, FT3, BMP, LIPID, LIVER #### [facility] [address] [place] [address] Dr. Brandon Hodges Protein [Mass/Vol] 7.7 g/dL Normal 6.4-8.2 [facility] Comment on above: Performed By: #### T SH, T4, FT3, BMP, LIPID, LIVER #### [facility] [address] [place] [address] Dr. Brandon Hodges PROF CHEM 8 (BAS METB)on Anion gap [Moles/Vol] 14.5 mmol/L Normal [facility] Comment on above: Performed By: #### T SH, T4, FT3, BMP, LIPID, LIVER #### [facility] [address] [place] [address] Dr. Brandon Hodges Calcium [Mass/Vol] 9.6 mg/dL Normal 8.5-10.1 [facility] Comment on above: Performed By: #### T SH, T4, FT3, BMP, LIPID, LIVER #### [facility] [address] [place] [address] Dr. Brandon Hodges Chloride [Moles/Vol] 108 mmol/L Critically high 98-107 [facility] Comment on above: Performed By: #### T SH, T4, FT3, BMP, LIPID, LIVER #### [facility] [address] [address] [address] Brandon Hodges CO2 [Moles/Vol] 26.1 mmol/L Normal 21.0-32.0 [facility] Comment on above: Performed By: #### T SH, T4, FT3, BMP, LIPID, LIVER #### [facility] [address] [address] [address] Brandon Hodges Creatinine [Mass/Vol] 0.75 mg/dL Normal 0.55-1.02 [facility] Comment on above: Performed By: #### T SH, T4, FT3, BMP, LIPID, LIVER #### [facility] [address] [place] [address] Dr. Brandon Hodges EGFR-AF PALESTINIAN >60 Normal >=60 [facility] Comment on above: Performed By: #### T SH, T4, FT3, BMP, LIPID, LIVER #### [facility] [address] [place] [address] Dr. Brandon Hodges EGFR-NON AF PALESTINIAN >60 Normal >=60 [facility] Comment on above: Performed By: #### T SH, T4, FT3, BMP, LIPID, LIVER #### [facility] [address] [place] [address] Dr. Brandon Hodges Glucose [Mass/Vol] 122 mg/dL Critically high 74-106 [facility] Comment on above: Performed By: #### T SH, T4, FT3, BMP, LIPID, LIVER #### [facility] [address] [address] [address] Brandon Hodges Potassium [Moles/Vol] 4.6 mmol/L Normal 3.5-5.1 [facility] Comment on above: Performed By: #### T SH, T4, FT3, BMP, LIPID, LIVER #### [facility] [address] [place] [address] Dr. Brandon Hodges Sodium [Moles/Vol] 144 mmol/L Normal 136-145 [facility] Comment on above: Performed By: #### T SH, T4, FT3, BMP, LIPID, LIVER #### [facility] [address] [place] [address] Dr. Brandon Hodges Urea nitrogen [Mass/Vol] 13.0 mg/dL Normal 7.0-18.0 [facility] Comment on above: Performed By: #### T SH, T4, FT3, BMP, LIPID, LIVER #### [facility] [address] [place] [address] Dr. Brandon Hodges Urea nitrogen/Creatinine [Mass ratio] 17.3 mg/mg Normal [facility] Comment on above: Performed By: #### T SH, T4, FT3, BMP, LIPID, LIVER #### [facility] [address] [place] [address] Dr. Brandon Hodges T4on 04-19-2022 T4 [Mass/Vol] 9.00 ug/dL Normal 4.80-13.90 [facility] Comment on above: Performed By: #### T SH, T4, FT3, BMP, LIPID, LIVER #### [facility] [address] [place] [address] Dr. Brandon Hodges TSHon 04-19-2022 TSH 0.335 uIU/mL Critically low 0.358-3.740 [facility] Comment on above: Performed By: #### T SH, T4, FT3, BMP, LIPID, LIVER #### [facility] [address] [place] [address] Dr. Brandon Hodges VITAMIN D 25 OHon 04-19-2022 VIT D 25-OH 29.4 ng/mL Normal [facility] Comment on above: Performed By: #### B MP #### [facility] [address] [place] [address] Dr. Brandon Hodges VIT D RANGES SEE BELOW Normal [facility] Comment on above: Result Comment: <20 ng/mL Vit D deficient 20 - <30 ng/mL Vit D insufficient 30 - 100 ng/mL Vit D sufficient >100 ng/mL Potential Toxicity Performed By: #### B #### [facility] [address] [address] [address] Brandon Hodges MG MAMM SCREEN 3D KRISTI CADon 01-11-2022 MG MAMM SCREEN 3D KRISTI CAD Patient: AUDREY ISAACS Exam Date: 01/11/2022 : 1975 Gender:F Ordering : VANCE YESICA NICKERSON [employer] Admission #: [id number] Family : Order #: [id number] CLICK HERE TO VIEW EXAM RADIOLOGY REPORT PROCEDURE: MAMMOGRAM SCREENING 3D BILATERAL CAD COMPARISON: MG MAMM RT DIAG FU, 04/08/2016. MG MAMM SCREEN KRISTI W CAD, 03/28/2016. INDICATIONS: Screening mammography Calculator Name NCI Breast Cancer Risk Assessment Tool 5 Year Breast Cancer Risk 1.70% Lifetime Breast Cancer Risk 12.00% Personal Breast Cancer No Personal Ovarian Cancer No Treatments None Family Cancers Grandmother-materna l with breast cancer at age 78; Grandfather-materna l with brain cancer at age 55; Grandmother-paterna l with leukemia cancer at age 72. LOCATION: [facility] BREAST COMPOSITION: Heterogeneously dense,which may obscure [...] PALPABLE LUMP SHOULD BE BIOPSIED. Dictated by: Jonathan Hollingsworth M.D. on 01/15/2022 at 11:59 Approved by: Jonathan Hollingsworth M.D. on 01/15/2022 at 12:[address] [facility] CHEMISTRYOrdered By: SYSTEM SYSTEM on 08-17-2021 Anion gap [Moles/Vol] 9 mmol/L Normal 6 - 16 mEq/L [facility] Remisol Calcium [Mass/Vol] 9.2 mg/dL Normal 8.9 - 11. 1 mg/dL [facility] Remisol Chloride [Moles/Vol] 107 mmol/L Normal 101 [...] Normal >=59mL/min/1 .73 m2 FT Chem S Glucose [Mass/Vol] 96 mg/dL Normal 55 - 199 mg/dL [facility] Remisol Potassium [Moles/Vol] 3.8 mmol/L Normal 3.5 - 5.3 mmol/L [facility] Remisol Sodium [Moles/Vol] 139 mmol/L Normal 135 - 145 mmol/L [facility] Remisol Urea nitrogen [Mass/Vol] 18 mg/dL Normal 5 - 21 mg/dL [facility] Remisol Urea nitrogen/Creatinine [Mass ratio] 22 mg/mg High 10 - 20 [facility] Remisol HEMATOLOGYOrdered By: Alana Hill on 08-17-2021 Erythrocyte distribution width (RBC) [Ratio] 12.9 % Normal 10.9 - 14.2 % [facility] HemeAutoSS Hematocrit (Bld) [Volume fraction] 41.2 % Normal 34.0 - 46.0 % [facility] HemeAutoSS Hemoglobin (Bld) [Mass/Vol] 14.2 g/dL Normal 12.0 - 16.0 gm/dL [facility] HemeAutoSS MCH (RBC) [Entitic mass] 29.6 pg [...] 179.0 E9/L Normal 150.0 - 500.0 E9/L [facility] HemeAutoSS RBC (Bld) [#/Vol] 4.8 E12/L Normal 4.3 - 5.9 E12/L [facility] HemeAutoSS WBC corrected for nucl RBC Auto (Bld) [#/Vol] 5.1 E9/L Normal 4.0 - 11.0 E9/L [facility] HemeAutoSS MRI Knee w/o Righton 022 MRI [...] by Colt Silvestre on 08/01/2021 1109 Normal [facility] 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 Performed By: #### B MP #### [facility] [address] [place] [address] Dr. Brandon Hodges RENITA by IFAon 06-18-2021 Antinuclear Antibodies, IFA Negative Normal [facility] Comment on above: Result Comment: Nega tive <1:80 Borderline 1:80 Positive >1:80 ICAP nomenclature: AC-0 For more information about Hep-2 cell patterns use ANApatterns.org, the official website for the International Consensus on Antinuclear Antibody (RENITA) Patterns (ICAP). Performed By: #### I NSULIN #### [facility] [address] [place] [address] Dr. Brandon Hodges ANTISTREPTOLYSIN O AB (ASO)o n 06-16-2021 Antistreptolysin O Ab 108.1 IU/mL Normal 0.0-200.0 Th e [facility] Comment on above: Performed By: #### I NSULIN #### [facility] [address] [place] [address] Dr. Brandon Hodges RHEUMATOID FACTORon 06-17-19 RA Latex Turbid. 11.1 IU/mL Normal <14.0 [facility] Comment on above: Performed By: #### I NSULIN #### [facility] [address] [place] [address] Dr. Brandon Hodges CBC AUTO DIFFon 06-15-2021 BASO # 0.0 103/ul Normal 0.0-0.1 [facility] Comment on above: Performed By: #### I NSULIN #### [facility] [address] [place] [address] Dr. Brandon Hodges Basophils/100 WBC (Bld) 0.4 % Normal 0.2-2.0 [facility] Comment on above: Performed By: #### I NSULIN #### [facility] [address] [place] [address] Dr. Brandon Hodges EO # 0.0 103/ul Normal 0.0-0.7 [facility] Comment on above: Performed By: #### I NSULIN #### [facility] [address] [place] [address] Dr. Brandon Hodges Eosinophils/100 WBC (Bld) 0.7 % Critically low 0.9-7.0 [facility] Comment on above: Performed By: #### I NSULIN #### [facility] [address] [place] [address] Dr. Brandon Hodges Erythrocyte distribution width (RBC) [Ratio] 12.8 % Normal 11.0-15.0 [facility] Comment on above: Performed By: #### I NSULIN #### [facility] [address] [place] [address] Dr. Brandon Hodges Hematocrit (Bld) [Volume fraction] 43.3 % Normal 36.0-48.0 [facility] Comment on above: Performed By: #### I NSULIN #### [facility] [address] [place] [address] Dr. Brandon Hodges Hemoglobin (Bld) [Mass/Vol] 14.1 g/dL Normal 12.0-16.0 [facility] Comment on above: Performed By: #### I NSULIN #### [facility] [address] [place] [address] Dr. Brandon Hodges IG # 0.00 10e3/ul Normal 0.00-0.03 [facility] Comment on above: Performed By: #### I NSULIN #### [facility] [address] [place] [address] Dr. Brandon Hodges IG % 0.0 % Normal 0.0-0.5 [facility] Comment on above: Performed By: #### I NSULIN #### [facility] [address] [place] [address] Dr. Brandon Hodges LYMPH # 1.6 103/ul Normal 1.2-3.8 [facility] Comment on above: Performed By: #### I NSULIN #### [facility] [address] [place] [address] Dr. Brandon Hodges Lymphocytes/100 WBC (Bld) 35.1 % Normal 20.5-60.0 [facility] Comment on above: Performed By: #### I NSULIN #### [facility] [address] [place] [address] Dr. Brandon Hodges MANUAL DIFF REQ NO Normal [facility] Comment on above: Performed By: #### I NSULIN #### [facility] [address] [place] [address] Dr. Brandon Hodges MCH (RBC) [Entitic mass] 29.4 pg Normal 26.7-34.0 [facility] Comment on above: Performed By: #### I NSULIN #### [facility] [address] [place] [address] Dr. Brandon Hodges MCHC (RBC) [Mass/Vol] 32.6 g/dL Normal 29.9-35.2 [facility] Comment on above: Performed By: #### I NSULIN #### [facility] [address] [place] [address] Dr. Brandon Hodges MCV (RBC) [Entitic vol] 90.2 fL Normal 81.0-99.0 [facility] Comment on above: Performed By: #### I NSULIN #### [facility] [address] [place] [address] Dr. Brandon Hodges MONO # 0.3 103/ul Normal 0.3-0.8 [facility] Comment on above: Performed By: #### I NSULIN #### [facility] [address] [place] [address] Dr. Brandon Hodges Monocytes/100 WBC (Bld) 6.8 % Normal 1.7-12.0 [facility] Comment on above: Performed By: #### I NSULIN #### [facility] [address] [place] [address] Dr. Brandon Hodges NEUT # 2.6 103/ul Normal 1.4-6.5 [facility] Comment on above: Performed By: #### I NSULIN #### [facility] [address] [place] [address] Dr. Brandon Hodges Neutrophils/100 WBC (Bld) 57.0 % Normal 43.0-75.0 [facility] Comment on above: Performed By: #### I NSULIN #### [facility] [address] [place] [address] Dr. Brandon Hodges Platelet mean volume (Bld) [Entitic vol] 10.8 fL Normal 9.5-13.5 [facility] Comment on above: Performed By: #### I NSULIN #### [facility] [address] [place] [address] Dr. Brandon Hodges PLT 220 103/ul Normal 150-450 [facility] Comment on above: Performed By: #### I NSULIN #### [facility] [address] [place] [address] Dr. Brandon Hodges RBC 4.80 106/ul Normal 4.20-5.40 [facility] Comment on above: Performed By: #### I NSULIN #### [facility] [address] [place] [address] Dr. Brandon Hodges WBC 4.6 103/ul Normal 4.0-11.0 [facility] Comment on above: Performed By: #### I NSULIN #### [facility] [address] [place] [address] Dr. Brandon Hodges CRPon 06-15-2021 CRP [Mass/Vol] mg/L Normal <=1.0 [facility] Comment on above: Performed By: #### T SH, T4, FT3, BMP, LIPID, LIVER #### [facility] [address] [place] [address] Dr. Brandon Hodges FREE T4on 06-15-2021 Free T4 [Mass/Vol] 0.86 ng/dL Normal 0.76-1.46 [facility] Comment on above: Performed By: #### I NSULIN #### [facility] [address] [place] [address] Dr. Brandon Hodges LIPID PROFILEon 06-15-2021 CHOL-HDL RATIO NORM SEE BELOW Normal [facility] Comment on above: Result Comment: 3.3 - 4.4 LOW RISK 4.4 - 7.1 AVERAGE RISK 7.1 - 11.0 MODERATE RISK >11.0 HIGH RISK Performed By: #### T SH, T4, FT3, BMP, LIPID, LIVER #### [facility] [address] [place] [address] Dr. Brandon Hodges Cholesterol [Mass/Vol] 211 mg/dL Critically high <=200 [facility] Comment on above: Performed By: #### T SH, T4, FT3, BMP, LIPID, LIVER #### [facility] [address] [address] [address] Brandon Hodges Cholesterol in HDL [Mass/Vol] 37 mg/dL Critically low 40-60 [facility] Comment on above: Performed By: #### T SH, T4, FT3, BMP, LIPID, LIVER #### [facility] [address] [address] [address] Brandon Hodges Cholesterol in LDL [Mass/Vol] 151.4 mg/dL Normal [facility] Comment on above: Performed By: #### T SH, T4, FT3, BMP, LIPID, LIVER #### [facility] [address] [address] [address] Brandon Hogdes Cholesterol.total/Chol esterol in HDL [Mass ratio] 5.7 {ratio} Normal [facility] Comment on above: Performed By: #### T SH, T4, FT3, BMP, LIPID, LIVER #### [facility] [address] [address] [address] Brandon Hodges HDL NORMAL > or = 60 mg/dl - LOW CARDIOVASCULAR RISK <40 mg/dl - HIGH CARDIOVASCULAR RISK Normal [facility] Comment on above: Performed By: #### T SH, T4, FT3, BMP, LIPID, LIVER #### [facility] [address] [address] [address] Brandon Hodges LDL CALC NORMAL SEE BELOW Normal [facility] Comment on above: Result Comment: <100 mg/dl OPTIMAL 100 - 129 mg/dl NEAR OR ABOVE OPTIMAL 130 - 159 mg/dl BORDERLINE HIGH 160 - 189 mg/dl HIGH >190 mg/dl VERY HIGH Performed By: #### T SH, T4, FT3, BMP, LIPID, LIVER #### [facility] [address] [address] [address] Brandon Hodges Triglyceride [Mass/Vol] 113 mg/dL Normal <=150 [facility] Comment on above: Performed By: #### T SH, T4, FT3, BMP, LIPID, LIVER #### [facility] [address] [address] [address] Brandon Hodges VLDL CALC 22.6 mg/dL Normal [facility] Comment on above: Performed By: #### T SH, T4, FT3, BMP, LIPID, LIVER #### [facility] [address] [place] [address] Dr. Brandon Hodges PROF 14(COMP METB)on 022 Albumin [Mass/Vol] 3.8 g/dL Normal 3.4-5.0 [facility] Comment on above: Performed By: #### T SH, T4, FT3, BMP, LIPID, LIVER #### [facility] [address] [place] [address] Dr. Brandon Hodges Albumin/Globulin [Mass ratio] 1.2 {ratio} Normal [facility] Comment on above: Performed By: #### T SH, T4, FT3, BMP, LIPID, LIVER #### [facility] [address] [place] [address] Dr. Brandon Hodges ALP [Catalytic activity/Vol] 75 U/L Normal 46-116 [facility] Comment on above: Performed By: #### T SH, T4, FT3, BMP, LIPID, LIVER #### [facility] [address] [place] [address] Dr. Brandon Hodges ALT [Catalytic activity/Vol] 26 U/L Normal 14-59 [facility] Comment on above: Performed By: #### T SH, T4, FT3, BMP, LIPID, LIVER #### [facility] [address] [place] [address] Dr. Brandon Hodges Anion gap [Moles/Vol] 10.2 mmol/L Normal [facility] Comment on above: Performed By: #### T SH, T4, FT3, BMP, LIPID, LIVER #### [facility] [address] [place] [address] Dr. Brandon Hodges AST [Catalytic activity/Vol] 10 U/L Critically low 15-37 [facility] Comment on above: Performed By: #### T SH, T4, FT3, BMP, LIPID, LIVER #### [facility] [address] [place] [address] Dr. Brandon Hodges Bilirubin [Mass/Vol] 0.4 mg/dL Normal 0.2-1.0 [facility] Comment on above: Performed By: #### T SH, T4, FT3, BMP, LIPID, LIVER #### [facility] [address] [place] [address] Dr. Brandon Hodges Calcium [Mass/Vol] 8.3 mg/dL Critically low 8.5-10.1 [facility] Comment on above: Performed By: #### T SH, T4, FT3, BMP, LIPID, LIVER #### [facility] [address] [address] [address] Brandon Hodges Chloride [Moles/Vol] 103 mmol/L Normal 98-107 [facility] Comment on above: Performed By: #### T SH, T4, FT3, BMP, LIPID, LIVER #### [facility] [address] [place] [address] Dr. Brandon Hodges CO2 [Moles/Vol] 28.8 mmol/L Normal 21.0-32.0 [facility] Comment on above: Performed By: #### T SH, T4, FT3, BMP, LIPID, LIVER #### [facility] [address] [place] [address] Dr. Brandon Hodges Creatinine [Mass/Vol] 0.81 mg/dL Normal 0.55-1.02 [facility] Comment on above: Performed By: #### T SH, T4, FT3, BMP, LIPID, LIVER #### [facility] [address] [place] [address] Dr. Brandon Hodges EGFR-AF PALESTINIAN >60 Normal >=60 [facility] Comment on above: Performed By: #### T SH, T4, FT3, BMP, LIPID, LIVER #### [facility] [address] [place] [address] Dr. Brandon Hodges EGFR-NON AF PALESTINIAN >60 Normal >=60 [facility] Comment on above: Performed By: #### T SH, T4, FT3, BMP, LIPID, LIVER #### [facility] [address] [place] [address] Dr. Brandon Hodges Globulin (S) [Mass/Vol] 3.1 g/dL Normal [facility] Comment on above: Performed By: #### T SH, T4, FT3, BMP, LIPID, LIVER #### [facility] [address] [address] [address] Brandon Hodges Glucose [Mass/Vol] 95 mg/dL Normal 74-106 [facility] Comment on above: Performed By: #### T SH, T4, FT3, BMP, LIPID, LIVER #### [facility] [address] [address] [address] Brandon Hodges Potassium [Moles/Vol] 3.9 mmol/L Normal 3.5-5.1 [facility] Comment on above: Performed By: #### T SH, T4, FT3, BMP, LIPID, LIVER #### [facility] [address] [address] [address] Brandon Hodges Protein [Mass/Vol] 6.9 g/dL Normal 6.1-8.2 [facility] Comment on above: Performed By: #### T SH, T4, FT3, BMP, LIPID, LIVER #### [facility] [address] [place] [address] Dr. Brandon Hodges Sodium [Moles/Vol] 138 mmol/L Normal 136-145 [facility] Comment on above: Performed By: #### T SH, T4, FT3, BMP, LIPID, LIVER #### [facility] [address] [address] [address] Brandon Hodges Urea nitrogen [Mass/Vol] 20.0 mg/dL Critically high 7.0-18.0 [facility] Comment on above: Performed By: #### T SH, T4, FT3, BMP, LIPID, LIVER #### [facility] [address] [address] [address] Brandon Hodges Urea nitrogen/Creatinine [Mass ratio] 24.7 mg/mg Normal [facility] Comment on above: Performed By: #### T SH, T4, FT3, BMP, LIPID, LIVER #### [facility] [address] [place] [address] Dr. Brandon Hodges SED RATE [facility] 2021 SED RATE <1 Normal <=20 [facility] Comment on above: Performed By: #### B MP #### [facility] [address] [place] [address] Dr. Brandon Hodges TSHon 06-15-2021 TSH 1.006 uIU/mL Normal 0.470-4.680 [facility] Comment on above: Performed By: #### T SH, T4, FT3, BMP, LIPID, LIVER #### [facility] [address] [place] [address] Dr. Brandon Hodges TSH RANGE SEE BELOW Normal [facility] Comment on above: Result Comment: <0.3 4 UIU/ml HYPERTHYROID 0.34-5.60 UIU/ml EUTHYROID >5.60 UIU/ml HYPOTHYROID Performed By: #### T SH, T4, FT3, BMP, LIPID, LIVER #### [facility] [address] [place] [address] Dr. Brandon Hodges URIC ACID SERUMon 06-15-2021 Urate [Mass/Vol] 4.2 mg/dL Normal 2.5-6.2 [facility] Comment on above: Performed By: #### T SH, T4, FT3, BMP, LIPID, LIVER #### [facility] [address] [place] [address] Dr. Brandon Hodges VITAMIN D 25 OHon 06-15-2021 VIT D 25-OH 47.6 ng/mL Normal [facility] Comment on above: Performed By: #### B MP #### [facility] [address] [place] [address] Dr. Brandon Hodges VIT D RANGES SEE BELOW Normal [facility] Comment on above: Result Comment: <20 ng/mL Vit D deficient 20 - <30 ng/mL Vit D insufficient 30 - 100 ng/mL Vit D sufficient >100 ng/mL Potential Toxicity Performed By: #### B MP #### [facility] [address] [place] [address] Dr. Brandon Hodges XR KNEE KRISTI 3 Von 06-14-2021 XR KNEE KRISTI 3 V EXAMINATION: XR KNEE KRISTI 3 V HISTORY: Pain of right knee [...] by: DOUGLAS SOLANO Date: 2021-06-14 13:[address] [facility] Vital Signs Date Time Vital Sign Value Performing Clinician Faci lity 12-04-2023 09:33-0400 Body height 177.8 cm Yesica Nickerson INSPECTOR AND [employer]ENDER Work Phone: [facility] 12-04-2023 09:33-0400 Body mass index (BMI) [Ratio] 33.23 kg/m2 Yesica Nickerson INSPECTOR AND MENDER Work Phone: [facility] 12-04-2023 09:33-0400 Body temperature 98.8 [degF] Yesica Nickerson INSPECTOR AND MENDER Work Phone: [facility] 12-04-2023 09:33-0400 Body weight 105.05 kg Yesica Nickerson INSPECTOR AND MENDER Work Phone: [facility] 12-04-2023 09:33-0400 Diastolic blood pressure 82 mm[Hg] Yesica Nickerson INSPECTOR AND MENDER Work Phone: [facility] 12-04-2023 09:33-0400 Heart rate 70 /min Yesica Nickerson INSPECTOR AND MENDER Work Phone: [facility] 12-04-2023 09:33-0400 Respiratory rate 18 /min Yesica Nickerson INSPECTOR AND MENDER Work Phone: [facility] 12-04-2023 09:33-0400 SaO2% (BldA) [Mass fraction] 99 % Yesica Nickerson INSPECTOR AND MENDER Work Phone: [facility] 12-04-2023 09:33-0400 Systolic blood pressure 132 mm[Hg] Yesica Nickerson INSPECTOR AND MENDER Work Phone: [facility] 09-23-2023 13:00-0400 Diastolic blood pressure 85 mm[Hg] Boby Mart [facility] 09-23-2023 13:00-0400 Heart rate 69 /min Boby Mart [facility] 09-23-2023 13:00-0400 Mean blood pressure 99 mm[Hg] Boby Mart [facility] 09-23-2023 13:00-0400 Respiratory rate 16 /min Boyb Mart [facility] 09-23-2023 13:00-0400 SaO2% (BldA) [Mass fraction] 98 % Boby Mart [facility] 09-23-2023 13:00-0400 Systolic blood pressure 127 mm[Hg] Boby Mart [facility] 09-23-2023 12:00-0400 Diastolic blood pressure 82 mm[Hg] Boby Ballesterose [facility] 09-23-2023 12:00-0400 Heart rate 68 /min Boby Mart [facility] 09-23-2023 12:00-0400 Mean blood pressure 94 mm[Hg] Boby Mart [facility] 09-23-2023 12:00-0400 SaO2% (BldA) [Mass fraction] 96 % Boby Mart [facility] 09-23-2023 12:00-0400 Systolic blood pressure 119 mm[Hg] Boby Mart [facility] 09-23-2023 11:05-0400 gluc 89 mg/dL Boby Mart [facility] 09-23-2023 11:05-0400 gluc Boby Ballesterose [facility] 09-23-2023 10:59-0400 Body temperature 98.6 [degF] Boby Cevallos [facility] 09-23-2023 10:59-0400 Diastolic blood pressure 96 mm[Hg] Boby Cevallos [facility] 09-23-2023 10:59-0400 Heart rate 84 /min Boby Cevallos [facility] 09-23-2023 10:59-0400 Respiratory rate 18 /min Boby Cevallos [facility] 09-23-2023 10:59-0400 SaO2% (BldA) [Mass fraction] 99 % Boby Cevallos [facility] 09-23-2023 10:59-0400 Systolic blood pressure 140 mm[Hg] Boby Cevallos [employer] [facility] 01-20-2023 17:00-0500 Body height 176.53 cm Tika Webermond Other [employer] Other 01-20-2023 17:00-0500 Body mass index (BMI) [Ratio] 33.85 kg/m2 Tika Webermond Other [employer] Other 01-20-2023 17:00-0500 Body temperature 98 [degF] Tika Webermond Other [employer] Other 01-20-2023 17:00-0500 Body weight 105.51 kg Tika Shanna Other [employer] Other 01-20-2023 17:00-0500 Respiratory rate 18 /min Tika Webermond Other [employer] Other 12-04-2023 17:00-0500 SaO2% (BldA) [Mass fraction] 99 % Tika Otero Other [employer] Other 06-11-2022 15:50-0400 Body height 176.53 cm Elise Stone Other [employer] Other 06-11-2022 15:50-0400 Body mass index (BMI) [Ratio] 36.39 kg/m2 Elise Stone Other [employer] Other 06-11-2022 15:50-0400 Body temperature 97.3 [degF] Elise Stone Other [employer] Other 06-11-2022 15:50-0400 Body weight 113.4 kg Elise Stone Other [employer] Other 06-11-2022 15:50-0400 Respiratory rate 18 /min Elise Stone Other [employer] Other 06-11-2022 15:50-0400 SaO2% (BldA) [Mass fraction] 99 % Elise Stone Other [employer] Other 02-28-2022 15:11-0500 Blood Pressure Location Juancarlos Enzo [facility] 02-28-2022 15:11-0500 Diastolic blood pressure 80 mm[Hg] Juancarlos Giraldo [facility] 02-28-2022 15:11-0500 Heart rate 84 /min Juancarlos Adamschristie [facility] 02-28-2022 15:11-0500 Respiratory rate 18 /min Juancarlos Giraldo [facility] 02-28-2022 15:11-0500 SaO2% (BldA) [Mass fraction] 96 % Juancarlos Giraldo [facility] 02-28-2022 15:11-0500 Systolic blood pressure 140 mm[Hg] Juancarlos Christofferson [facility] 11-19-2021 15:13-0400 Blood Pressure Location Juancarlos Giraldo [facility] 11-19-2021 15:13-0400 Diastolic blood pressure 75 mm[Hg] Juancarlos Giraldo [facility] 11-19-2021 15:13-0400 Heart rate 86 /min Juancarlos Giraldo [facility] 11-19-2021 15:13-0400 Respiratory rate 18 /min Juancarlos Giraldo [facility] 11-19-2021 15:13-0400 SaO2% (BldA) [Mass fraction] 96 % Juancarlos Giraldo [facility] 11-19-2021 15:13-0400 Systolic blood pressure 126 mm[Hg] Juancarlos Giraldo [facility] Encounters Encounter Date Encounter Type Care Provider Facility Start: 12-04-2023 End: 12-04-2023 Patient encounter procedure Yesica Nickerson Work Phone: [facility] [address] Work Phone: Start: 12-04-2023 End: 12-04-2023 ambulatory Yesica Nickerson Work Phone: [facility] Work Phone: Start: 12-04-2023 End: 12-04-2023 Bamboo flowsheet Yesica Nickerson INSPECTOR AND MENDER Work Phone: [facility] Start: 12-04-2023 End: 12-04-2023 Bamboo flowsheet Yesica Aichholz INSPECTOR AND MENDER Work Phone: [facility] Start: 12-04-2023 End: 12-04-2023 ambulatory YESICA AICHHOLZ Not Available Start: 12-04-2023 End: 12-04-2023 Office outpatient visit 15 minutes Yesica Aichholz INSPECTOR AND MENDER Work Phone: [facility] Comment on above: RENITA positive (Primar y Dx); Peptic ulcer without hemorrhage, perforation, or obstruction; Varicose veins of both lower extremities with pain; Class 1 obesity without serious comorbidity with body mass index (BMI) of 33.0 to 33.9 in adult, unspecified obesity type; Tobacco user; Gastroesophageal reflux disease without esophagitis Start: 10-30-2023 End: 10-30-2023 ambulatory YESICA AICHHOLZ Not Available Start: 10-16-2023 End: 10-16-2023 ambulatory RADHIKA QUISPE Not Available Start: 09-25-2023 End: 09-25-2023 ambulatory SUNNI A QUINCY Not Available Start: 09-24-2023 End: 09-24-2023 ambulatory YESICA AICHHOLZ Not Available Start: 09-23-2023 End: 09-23-2023 Emergency department patient visit Boby Cevallos [facility] Start: 08-05-2023 End: 08-05-2023 ambulatory YESICA AICHHOLZ Not Available Start: 05-27-2023 End: 05-27-2023 ambulatory ZEESHAN BENSON Not Available Start: 04-29-2023 End: 04-29-2023 ambulatory YESICA AICHHOLZ Not Available Start: 01-20-2023 End: 01-20-2023 ambulatory Tika Otero Other [employer] Other Start: 01-20-2023 Office outpatient vi sit 15 minutes Tika Otero [facility] [place] Start: 06-28-2022 End: 06-28-2022 ambulatory Yesica Linda Osoriohulisses Work Phone: [facility] Work Phone: Start: 06-28-2022 End: 06-28-2022 Discharged Recurring Yesica Nickerson Work Phone: [facility] Work Phone: Start: 06-11-2022 End: 06-11-2022 ambulatory Elise Stone Other [facility] [employer] Other Start: 06-11-2022 Office outpatient ne w 30 minutes Elise Stone [facility] [place] Start: 05-18-2022 End: 05-19-2022 ambulatory HOG [employer] YESICA NELSONEVELYNChristine Facility:[facility] Start: 04-19-2022 End: 04-20-2022 ambulatory HOG GRADER YESICA KRISHAN Facility:[facility] Start: 02-28-2022 End: 02-28-2022 Patient encounter procedure Juancarlos Giraldo [facility] Start: 01-11-2022 End: 01-12-2022 ambulatory HOG GRADER YESICA NELSONEVELYNChristine Facility:[facility] Start: 11-29-2021 End: 03-03-2022 Preprocedural examination done Zeeshan Benson [facility] Start: 11-29-2021 End: 03-03-2022 Recurring Zeeshan Benson [facility] Start: 11-19-2021 End: 11-19-2021 Patient encounter procedure [facility] [facility] Start: 08-17-2021 End: 08-17-2021 Patient encounter procedure Zeeshan Benson [facility] Start: 06-15-2021 End: 06-16-2021 ambulatory HOG GRADER YESICA NELSONEVELYNChristine Facility:H1 Start: 06-14-2021 End: 06-15-2021 ambulatory HOG GRADER YESICA NICKERSON Facility:[facility]1 Procedures Date Procedure Procedure Detail Performing Clinician Start: 05-12-2023 Mammography Yesica white [employer] Work Phone: Plan of Treatment Date Care Activity Detail Author Start: 05-11-2026 Screening for malign ant neoplasm of colon [facility] Start: 05-11-2024 Screening for malign ant neoplasm of breast Mammogram [facility] Start: 12-25-2023 End: 12-25-2023 Patient encounter procedure 12/25/2023 3:00 PM EST Procedure Visit [facility] [address] [place] [address] Radhika Quispe MD [address] [place] [address] [facility] Start: 12-04-2023 Hemolytic complement CH50 level [facility] Start: 06-01-2005 Screening for malign ant neoplasm of cervix HPV/Cotest [facility] Start: 06-01-1996 Screening for malign ant neoplasm of cervix Pap Smear [facility] Start: 1975 Screening for malign ant neoplasm of colon [facility] Complement C3 [Mass/volume] in Serum or Plasma [facility] Complement C4 [Mass/volume] in Serum or Plasma [facility] Payers Date Payer Category Payer Self-pay [id number] 2021 [facility] er [id number] 1975 Unknown [id number] 2.16.840.1.105041.3.579 .2.593 1975 Unknown [id number] 2.16.840.1.496128.3.579 .2.593 1975 Unknown [id number] 2.16.840.1.505876.3.579 .2.593 1975 Unknown [id number] 2.16.840.1.142920.3.579 .2.593 1975 Unknown [id number] 2.16.840.1.456457.3.579 .2.593 1975 Unknown [id number] 2.16.840.1.547053.3.579 .2.727 1975 Unknown [id number] 2.16.840.1.440123.3.579 .2.727 1975 Unknown [id number] 2.16.840.1.790032.3.579 .2.125 1975 Unknown [id number] 2.16.840.1.064805.3.579 .2.1258 1975 Unknown [id number] 2.16.840.1.655010.3.579 .2.125 1975 Unknown [id number] 2.16.840.1.195077.3.579 .2.125 1975 Unknown [id number] 2.16.840.1.256831.3.579 .2.125 1975 Unknown [id number] 2.16.840.1.340464.3.579 .2.125 1975 Unknown [id number] 2.16.840.1.410517.3.579 .2.125 1975 Unknown [id number] 2.16.840.1.756070.3.579 .2.1259 1975 Unknown [id number] 2.16.840.1.260972.3.579 .2.1259 1959 Unknown [id number] Private Health Insurance [employer] [id number] Unknown [id number] 2.16.840.1.422279.3.579 .2.531 Social History Date Type Detail Facility Tobacco smoking status No Smokin g Status Entered [facility] Start: 04-28-2023 End: 04-29-2023 Sex Assigned At Female [facility] Start: 02-28-2022 Tobacco smoking status Light t obacco smoker (finding) [facility] Start: 1975 Sex Assigned At Female [facility] Start: 10-16-2023 [facility] History of tobacco use Cigarette Smoker [facility] Start: 04-28-2023 End: 10-16-2023 Cigarettes smoked current (pack per day) - Reported 0.5 [facility] Start: 10-30-2023 End: 12-04-2023 Alcoholic beverage intake Ex-drinker (finding) [facility] Do you belong to any clubs or organizations such as buddhism groups, unions, fraternal or athletic groups, or school groups? No [facility] Are you now , , , , never or living with a partner? [facility] How often to you hav e a drink containing alcohol? Monthly or less [facility] How many standard dr inks containing alcohol do you have on a typical day? 1 or 2 [facility] How often do you hav e 6 or more drinks on 1 occasion? Never [facility] How hard is it for y ou to pay for the very basics like food, housing, medical care, and heating Not hard at all [facility] Do you feel stress - tense, restless, nervous, or anxious, or unable to sleep at night because your mind is troubled all the time - these days [OSQ] To some extent [facility] (I/We) worried wheth er (my/our) food would run out before (I/we) got money to buy more. Never true [facility] Start: 04-19-2023 Alcohol Comment 2-4 times a month [facility] Start: 1975 Sex assigned at Not on file [facility] Start: 04-09-2018 Tobacco smoking stat [facility] Smoker (finding) [facility] Functional Status Date Assessment Result Facility 09-23-2023 Functional Status N/A [facility] 02-28-2022 Functional Status No [facility] 11-19-2021 Functional Status N/A [facility] Clinical Notes 06-11-2022 to 12-04-2023 Yesica Nickerson NP - 12/04/2023 10:22 AM Kyra Nickerson, ERICH - 12/04/2023 10:22 AM Kyra Nickerson NP - 12/04/2023 10:22 AM Kyra Nickerson, ERICH - 12/04/2023 10:21 AM EDT Note Date & Type Note Facility 12-04-2023 History of Present illness Narrative Associated Problem(s): Tobacco user Vapes The patient has been advised of the risks of continued smoking: stroke, LA, all forms of cancer, lung disease, and . Options for quitting smoking include: cold turkey, hypnosis, acupuncture, nicotine replacement meds (gum, lozenges, and patches), Buproprion, and Varenicline. At this time pt is encouraged to evaluate their goals for wanting to quit smoking, and reach out to provider when ready to start this process Associated Problem(s): RENITA positive Has rheumatology today Associated Problem(s): Gastroesophageal reflux disease without esophagitis If does not take PPI, after 2 days does have symptoms Doing ok with 20mg dose, has stepped down from 40mg Associated Problem(s): Peptic ulcer without hemorrhage, perforation, or obstruction Over 20 years ago Associated Problem(s): Varicose veins of both lower extremities with pain S/p procedure last week to RLE Pt will need a refill on her omeprazole 20mg Images from the original note were not included. Audrey Isaacs is a 48 y.o. female presents with chief complaint of No chief complaint on file. HPI: Here to review her labs, +RENITA, has appt today with endo GERD She reports no abdominal pain, no belching, no chest pain, no choking, no coughing, no dysphagia, no early satiety, no nausea, no sore throat, no water brash or no wheezing. This is a chronic problem. The current episode started more than 1 year ago. The problem occurs occasionally. The problem has been unchanged. She has tried a PPI for the symptoms. The treatment provided significant relief. Past procedures include a UGI. SUBJECTIVE: MEDICATIONS: Current Outpatient Medications Medication Instructions ALPRAZolam (XANAX) 0.25 mg, Daily PRN atorvastatin (LIPITOR) 10 mg, Oral, Daily Hormone Cream Base cream 0.5 mL, Daily metaxalone (SKELAXIN) 400 mg, 4 times daily PRN omeprazole (PRILOSEC) 20 mg, Oral, Daily before breakfast spironolactone (ALDACTONE) 25 mg, Oral, Daily PRN UNABLE TO FIND 1 tablet, Daily Vitamin D3 2,000 Units, Weekly ALLERGIES: Allergies Allergen Reactions Amoxicillin Unknown Iodine Other Reaction(s): burning Methylprednisolone Itching Paxil [Paroxetine] Unknown Povidone Iodine Other Povidone-Iodine Other Reaction(s): Redness of Skin Vioxx [Rofecoxib] Unknown Zoloft [Sertraline] Unknown REVIEW OF SYMPTOMS: Review of Systems Constitutional: Negative for appetite change, chills and fever. HENT: Negative for congestion, ear pain and sore throat. Eyes: Negative for pain, discharge, redness and visual disturbance. Respiratory: Negative for cough, choking, shortness of breath and wheezing. Cardiovascular: Negative for chest pain, palpitations and leg swelling. Gastrointestinal: Negative for abdominal pain, blood in stool, constipation, diarrhea, dysphagia, nausea and vomiting. Genitourinary: Negative for difficulty urinating, dysuria and frequency. Musculoskeletal: Positive for arthralgias. Negative for back pain, joint swelling and myalgias. Skin: Negative for rash and wound. Neurological: Negative for dizziness, tremors, seizures, syncope and headaches. Psychiatric/Behavioral: Negative for behavioral problems, self-injury and suicidal ideas. The patient is not nervous/anxious. Hematological: Does not bruise/bleed easily. Endocrine: Negative for polydipsia, polyphagia and polyuria. Allergic/Immunologic: Negative for environmental allergies and food allergies. PAST MEDICAL HISTORY Past Medical History: Diagnosis Date Anxiety and depression ([facility]) 04/29/2023 Arthritis Bilateral chronic knee pain 04/29/2023 Bunion Dry eyes Dysmenorrhea Dyspareunia, female 04/29/2023 Fibromyalgia 04/29/2023 GERD without esophagitis Headache 06/17/2007 Low serum cortisol level 04/29/2023 Lymphedema of left arm Menopause ovarian failure 04/29/2023 Menorrhagia with irregular cycle Migraines ([facility]) 04/29/2023 BRITTANY (obstructive sleep apnea) 04/29/2023 Pelvic pain in female Plantar fasciitis Tear of meniscus of knee Thoracic outlet syndrome 04/29/2023 Tobacco user 04/29/2023 Past Surgical History: Procedure Laterality Date BELT ABDOMINOPLASTY 2005 Tummy tuck BREAST BIOPSY Procedure:Breast biopsy kristi benign BUNIONECTOMY CHOLECYSTECTOMY 2004 HERNIA REPAIR 1978 HYSTERECTOMY 05/04/2019 KNEE ARTHROSCOPY W/ DEBRIDEMENT Right 12/07/2021 MTP MENISCECTOMY OOPHORECTOMY 2004 OTHER SURGICAL HISTORY Exc lymph node left axilla PERC BX OR EXCISION LYMPH NODE 2015 TONSILLECTOMY 06/17/2007 and Adenoidectomy WISDOM TOOTH EXTRACTION family history includes Arthritis in her mother; Cancer in her maternal grandfather, maternal grandmother, mother, and paternal grandmother; Diabetes in her maternal grandmother; Hypertension in her father and maternal grandmother; Nephrolithiasis in her father; Stroke in her paternal grandfather. OBJECTIVE: Visit Vitals BP 132/82 (BP Location: Right arm, Patient Position: Sitting, BP Cuff Size: Adult long) Pulse 70 Temp 98.8 F (Temporal) Resp 18 Ht 5' 10 Wt 231 lb 9.6 oz SpO2 99% BMI 33.23 kg/m Smoking Status Every Day BSA 2.28 m Physical Exam Vitals and nursing note reviewed. Constitutional: General: She is not in acute distress. Appearance: Normal appearance. HENT: Head: Normocephalic and atraumatic. Right Ear: External ear normal. Left Ear: External ear normal. Nose: Nose normal. Mouth/Throat: Mouth: Mucous membranes are moist. Eyes: Extraocular Movements: Extraocular movements intact. Conjunctiva/sclera: Conjunctivae normal. Neck: Vascular: No carotid bruit. Cardiovascular: Rate and Rhythm: Normal rate and regular rhythm. Pulses: Normal pulses. Heart sounds: Normal heart sounds. Pulmonary: Effort: Pulmonary effort is normal. Breath sounds: Normal breath sounds. Abdominal: General: Bowel sounds are normal. There is no distension. Palpations: Abdomen is soft. There is no mass. Tenderness: There is no abdominal tenderness. Musculoskeletal: General: Normal range of motion. Cervical back: Normal range of motion and neck supple. Right lower leg: No edema. Left lower leg: No edema. Lymphadenopathy: Cervical: No cervical adenopathy. Skin: General: Skin is warm and dry. Capillary Refill: Capillary refill takes 2 to 3 seconds. Findings: No rash. Neurological: General: No focal deficit present. Mental Status: She is alert and oriented to person, place, and time. Psychiatric: Mood and Affect: Mood normal. Behavior: Behavior normal. Thought Content: Thought content normal. Judgment: Judgment normal. ASSESSMENT AND PLAN: No follow-ups on file. Problem List Items Addressed This Visit Obesity Peptic ulcer without hemorrhage, perforation, or obstruction Over 20 years ago Relevant Medications omeprazole (PriLOSEC) [address] capsule Tobacco user Vapes The patient has been advised of the risks of continued smoking: stroke, LA, all forms of cancer, lung disease, and . Options for quitting smoking include: cold turkey, hypnosis, acupuncture, nicotine replacement meds (gum, lozenges, and patches), Buproprion, and Varenicline. At this time pt is encouraged to evaluate their goals for wanting to quit smoking, and reach out to provider when ready to start this process Varicose veins of both lower extremities with pain S/p procedure last week to RLE RENITA positive - Primary Has rheumatology today Gastroesophageal reflux disease without esophagitis If does not take PPI, after 2 days does have symptoms Doing ok with 20mg dose, has stepped down from 40mg documented in this encounter [facility] 09-23-2023 Hospital Discharge instructions Patient Education 09/23/2023 13:01:25 Dizziness Dizziness [...] balance is good. If you need to test and balance engineer one place for a long time, move [...] Watch your dizziness for any changes. Take [id number] and prescription medicines only as told by [...] provider. Document Revised: 01/08/2021 Document Reviewed: 01/08/2021 Elsevier Patient Education 2022 [employer]. Follow Up Care 09/23/2023 10:55:56 With:YESICA NICKERSON Address: [address] [place] [address] [phone] Business (1) When:09/26/2023 12:52:48 [facility] 09-23-2023 Note ED Patient Education Note Neurology [...] is good. ? If you need to test and balance engineer one place for a long time, move [...] your dizziness for any changes. ? Take [id number] and prescription medicines only as told by [...] provider. Document Revised: 01/08/2021 Document Reviewed: 01/08/2021 HeadCount Patient Education ? 2022 [employer]. [facility] 01-20-2023 Evaluation note Encounter Date Diagnosis Assessment [...] no improvement in 2 to 3 days [employer] Other 04-25-2023 Evaluation note* Encounter Date Diagnosis [...] understanding and is agreeable with treatment plan. [employer] Other Evaluation + Plan note No data available for this section [facility] Future Appointments Appointment Date:02/28/2022 03:15:00 PM Scheduled Provider:Juancarlos Giraldo MD Location:[facility]iology Clinic Appointment Type:Cardiology [facility] ([place] note[facility] assessment information available [facility] Work Phone: Evaluation note* Diagnosis Bilateral lower extremity edema- Primary Encounter for screening mammogram for malignant neoplasm of breast Colon cancer screening Special screening for malignant neoplasms, colon BRITTANY (obstructive sleep apnea) Obstructive sleep apnea (adult) (pediatric) Primary osteoarthritis of both knees Varicose veins of both lower extremities with pain- Primary Participant in health and wellness plan Bilateral lower extremity edema Class 1 obesity without serious comorbidity in adult, unspecified BMI, unspecified obesity type Menopause Symptomatic menopausal or female climacteric states Menopause ovarian failure Skin lesion of left lower extremity Skin lesion of right lower extremity Dizziness- Primary Dizziness and giddiness Class 1 obesity without serious comorbidity in adult, unspecified BMI, unspecified obesity type Anxiety and depression (CMS/HCC) Heart palpitations Palpitations Migraine without status migrainosus, not intractable, unspecified migraine type (CMS/HCC) Other fatigue- Primary Mixed hyperlipidemia (CMS/HCC) Mixed hyperlipidemia Heart palpitations Palpitations Class 1 obesity without serious comorbidity in adult, unspecified BMI, unspecified obesity type Menopause ovarian failure Dizziness Dizziness and giddiness Hypokalemia Hypopotassemia RENITA positive- Primary Peptic ulcer without hemorrhage, perforation, or obstruction Varicose veins of both lower extremities with pain Class 1 obesity without serious comorbidity with body mass index (BMI) of 33.0 to 33.9 in adult, unspecified obesity type Tobacco user Tobacco use disorder Gastroesophageal reflux disease without esophagitis Esophageal reflux documented in this encounter [facility] HealthcareHistory general Narrative - Reported* Type Description Date Medical History Anxiety Medical History History of muscle spasm Medical History acid reflux Surgical History tonsillectomy Surgical History hernia Surgical History cholecystectomy Surgical History oophorectomy Surgical History Tummy Tuck Surgical History lymph node resection left axill vianney Surgical History hysterectomy 04/2019 Surgical History knee surgery 10/2021 Hospitalization History see above [employer] Other History general Narrative - Reported* Type Description Date Medical History Anxiety Medical History History of muscle spasm Medical History acid reflux Medical History high cholesterol Surgical History tonsillectomy Surgical History hernia Surgical History cholecystectomy Surgical History oophorectomy Surgical History Tummy Tuck Surgical History lymph node resection left axill vianney Surgical History hysterectomy 04/2019 Surgical History knee surgery 10/2021 Hospitalization History see above [employer] Other Hospital Discharge instructions No data available for this section [facility] No data available for this section [facility] Summary Purpose Family History No Family History Records Found Relationship Condition Age at Onset Recorded Date/T sharif father Hypertension Unknown grandparent Malignant neoplasm Unknown Advance Directives No Advanced Directives Records Found Advance Directive Response Recorded Date/ Time Advance Directives No March 8:22pm Chief Complaint and Reason for Visit Chief Complaint Thyroid Additional Source Comments INFORMATION SOURCE (unrecogn ized section and content) DATE CREATED AUTHOR 08/02/2021 [facility] dical Specialist DATE CREATED AUTHOR AUTHOR'S ORGANIZ ATION 05/25/2022 [facility] DATE CREATED AUTHOR AUTHOR'S ORGANIZ ATION 09/25/2023 [facility] DATE CREATED AUTHOR AUTHOR'S ORGANIZ ATION 09/30/2023 [facility] DATE CREATED AUTHOR AUTHOR'S ORGANIZ ATION 12/06/2023 [facility] Specialists EPIC DATE CREATED AUTHOR AUTHOR'S ORGANIZ ATION 12/10/2023 [facility] Care Team (unrecognized sect ion and content) Team Status: Active Member Role Status Dates Yesica Nickerson Primary Care Provider Active Team Status: Inactive Member Role Status Dates Gopal Potter MD Attending Provider Active Yesica Nickerson Primary Care Provider Active [employer] Relationship Specialty Start Date End Date Brian Leblanc MD [address] [place] [phone] PCP - General Family Medicine 04/14/23 Yesica Nickerson NP [address] [place] [phone] PCP - [employer] 09/18/23 [employer] Relationship Specialty Start Date End Date Brian Leblanc MD [address] [place] [phone] PCP - General Family Medicine 04/14/23 Yesica Nickerson NP [address] [place] [phone] PCP - [employer] 09/18/23 Team Status: Inactive Member Role Status Dates Yesica Mckeon Krishan Primary Care Provider Active Sta rt: December 04, 2023 End: December 04, 2023 Salinas White MD Attending Provider Active St art: December 04, 2023 End: December 04, 2023 REASON FOR VISIT (unrecogniz ed section and [...] BE BASED ON THE PRIMARY CLINICAL RECORDS. [employer] provides no warranty or guarantee of the accuracy or completeness of information in this document.
[2023-12-11 09:06] VITALS: BP 122/74; PULSE 72; O2SAT 97
== END 2023-12-11 09:53 | disposition home or self-care (01) ==
LOC: VC 07:31
PROVIDERS: PCP Radiology Diagnostic Radiology; Visit Provider Radiology Diagnostic Radiology
DX: I83.813 Varicose veins of bilateral lower extremities with pain (principal)
CPT/HCPCS: 36466

== ENCOUNTER 2023-12-17 09:24 | Outpatient (OUT) | payer BC, SELFPAY ==
[2023-12-17 08:32] VITALS: BMI 33.5
--- NOTE | 2023-12-17 08:32 | VEINCLINIC_ITS ---
Vital Signs 12/17/23 08:32 Height 5 ft 9 in Weight 103 kg BMI 33.5 Varicose Veins Patient in today for follow up ultrasound of right lower extremity following treatment of Varithena/microfoam completed on 12/11/23. Ben Zeng MD personally performed the services described in this documentation, as scribed by Nguyen Craven RDMS in my presence and it is both accurate and complete. Nguyen Zeng RDMS, am scribing for, and in the presence of, Dr. Bon Hollingsworth and in the presence of the patient. thigh: bilateral, knee: bilateral, calf: bilateral, ankle: bilateral and simmons: bilateral aching, cramping, sharp and intermittent 8 1 year Worsened in recent months: Yes other (denies) other (daily anti-inflammatory) Reports muscle spasms of leg, limb pain and leg edema (pitting) History of lower extremity trauma: No Superficial thrombophlebitis: No Family history of varicose veins: yes (mother and father) Has patient had previous lower extremity venous surgery: No Patient has previously received the following treatment(s) for lower extremity varicose veins: Reports none Does patient have a history of : yes (grav 3 para 2) Does patient intend to have future pregnancies: no Has patient had lower extremity venous scan with relux testing: Yes Support hose used: Yes (6 months) Prescribed by provider: No Problems walking or doing physical activity: No Do you walk much: Yes Do you stand much: Yes Medication compliance: good Large amounts of Vitamin K: No Review of Systems ROS Narrative Ben Zeng MD personally performed the services described in this documentation, as scribed by Nguyen Craven RDMS in my presence and it is both accurate and complete. Nguyen Zeng RDMS, am scribing for, and in the presence of, Dr. Bon Hollingsworth and in the presence of the patient. Status of ROS 10 or more systems reviewed and unremark able except as noted in history and below Cardiovascular Reports: edema; Denies: swelling of feet/ankles Musculoskeletal Reports: extremity pain, extremity swelling, joint pain, joint swelling, muscle cramps and muscle weakness Integumentary/Breast Reports: skin pain, skin tenderness and skin swelling PFSH PFS Medical History (Updated 11/27/23 @ 07:32 by Kelsi Sal RN) Phlebitis and thrombophlebitis of superficial vessels of right lower extremity ?I80.01 - Phlebitis and thrombophlebitis of superficial vessels of right lower extremity (ICD-10) Lymphoma of lymph nodes of axilla ?C85.94 - Non-Hodgkin lymphoma, unspecified, lymph nodes of axilla and upper limb (ICD-10) Hemorrhage following tonsillectomy and adenoidectomy ?J95.830 - Postprocedural hemorrhage of a respiratory system organ or structure following a respiratory system procedure (ICD-10) Encounter for cholecystectomy ?Z76.89 - Persons encountering health services in other specified circumstances (ICD-10) Lymphedema ?I89.0 - Lymphedema, not elsewhere classified (ICD-10) Migraines ?G43.909 - Migraine, unspecified, not intractable, without status migrainosus (ICD-10) Gastroesophageal reflux ?K21.9 - Gastro-esophageal reflux disease without esophagitis (ICD-10) Varicose veins of bilateral lower extremities with pain ?I83.813 - Varicose veins of bilateral lower extremities with pain (ICD-10) Hypertension ?I10 - Essential (primary) hypertension (ICD-10) Hypercholesteremia ?E78.00 - Pure hypercholesterolemia, unspecified (ICD-10) Endometriosis ?N80.9 - Endometriosis, unspecified (ICD-10) Surgical History (Updated 12/11/23 @ 09:50 by Abel Tineo) S/P sclerotherapy of varicose veins ?Z98.890 - Other specified postprocedural states (ICD-10) ?Z86.79 - Personal history of other diseases of the circulatory system (ICD- 10) H/O hernia repair ?Z98.890 - Other specified postprocedural states (ICD-10) ?Z87.19 - Personal history of other diseases of the digestive system (ICD-10) H/O arthroscopy of knee ?Z98.890 - Other specified postprocedural states (ICD-10) H/O: hysterectomy ?Z90.710 - Acquired absence of both cervix and uterus (ICD-10) Family History (Updated 08/19/23 @ 10:03 by Kelsi Sal RN) Mother Family history of cancer Varicose veins of bilateral lower extremities with pain Grandmother Family history of diabetes mellitus Father Family history of hypertension Varicose veins of bilateral lower extremities with pain Son Family history of hypertension Grandfather Family history of stroke Social History (Updated 08/19/23 @ 08:47 by Kelsi Sal RN) Within the past year, how often did you have a drink containing alcohol: monthly or less Smoking status: Current every day smoker Do you use any of these nicotine containing products: vaping products Non-prescribed substance use: denies use Meds Home Medications and Allergies Home Medications ?Medication ?Instructions ?Recorded ?Confirmed ?Type alprazolam 0.25 mg tablet (Xanax) 0.25 mg PO PRN 08/19/23 08/19/23 History atorvastatin 10 mg tablet 10 mg PO QPM 08/19/23 08/19/23 History hormonal cream 08/19/23 History hydrochlorothiazide 12.5 mg tablet 25 mg PO DAILY 08/19/23 08/19/23 History meloxicam 15 mg tablet 15 mg PO DAILY 08/19/23 08/19/23 History omeprazole 20 mg capsule,delayed 20 mg PO DAILY 08/19/23 08/19/23 History release aspirin 325 mg capsule 325 mg PO DAILY 12/17/23 12/17/23 History Allergies Allergy/AdvReac Type Severity Reaction Status Date / Time rofecoxib (From Vioxx) Allergy Unknown Unknown Unverified 08/19/23 08:53 amoxicillin Allergy rash Unverified 08/19/23 08:53 iodine Allergy Rash Unverified 08/19/23 09:58 methylprednisolone Allergy itching Unverified 08/19/23 10:18 paroxetine (From Paxil) Allergy Unknown Unverified 08/19/23 08:53 sertraline (From Zoloft) Allergy Unknown Unverified 08/19/23 08:53 Exam Narrative Exam Narrative: IBen MD personally performed the services described in this docume ntation, as scribed by Nguyen Craven RDMS in my presence and it is both accurate and complete. I, Nguyen Craven RDMS, am scribing for, and in the presence of, Dr. Bno Hollingsworth and in the presence of the patient. Constitutional Vital Signs, click to edit/add: Last Vital Signs Pulse 53 L 08/19/23 08:58 Resp 16 08/19/23 08:58 BP 104/72 08/19/23 08:58 Pulse Ox 98 08/19/23 08:58 Documenting provider has reviewed patient's vital signs: yes Common normals: oriented x3 Nutritional appearance: overweight Lymph Lymphatic: no lymphedema noted Cardio Peripheral pulses: posterior tibial pulses present and dorsalis pedis pulses present Extremity General: calf tenderness, edema and other findings Right lower extremity: lower leg Right lower leg: inspection and palpation Left lower extremity: lower leg Left lower leg: inspection and palpation Neuro Common normals: oriented x3 Results Imaging Venous US: Radiologist's impression: Chemically induced thrombus in multiple varicose veins right leg. Thrombus extends into one PTV distal lower leg. Ben Zeng MD personally performed the services described in this documentation, as scribed by Nguyen Craven RDMS in my presence and it is both accurate and complete. Nguyen Zeng RDMS, am scribing for, and in the presence of, Dr. Bon Hollingsworth and in the presence of the patient. Assessment and Plan Assessment and Plan (1) Phlebitis and thrombophlebitis of superficial vessels of right lower extremity: Plan Plan is for patient to return for sclerotherapy of right leg on 12/29/23. Ben Zeng MD personally performed the services described in this documentation, as scribed by Nguyen Craven RDMS in my presence and it is both accurate and complete. Nguyen Zeng RDMS, am scribing for, and in the presence of, Dr. Bon Hollingsworth and in the presence of the patient.
--- NOTE | 2023-12-17 09:25 | VEIN_ITS ---
Patient Name: AUDREY MUÑOZ MR#: [id number] : 1975 Exam Date: 12/17/2023 Ordering Doctor: DR JONATHAN MAS M.D. RADIOLOGY REPORT PROCEDURE: [facility] - OFFICE VISIT FOLLOW UP [facility] PROGRESS NOTES: The patient reports improvement in leg symptoms. There has been interval reduction in varicosities. The patient has followed our recommendations to walk 20-30 minutes once or twice per day since the procedure. Physical exam demonstrates decrease in varicosities of the leg. Persistent spider veins are identified along the right leg. Review of the ultrasound performed the same day demonstrates occlusive thrombus extending throughout the treated vein(s), see separate report, consistent with a successful ablation. Short segment of thrombus within the distal posterior tibial vein. No thrombus extending into or beyond the saphenofemoral junction. The patient expressed a desire to proceed with treatment of spider veins. The patient was informed that treatment was a process and would require several procedures/sessions. [facility] 1. Successful ablation of the right leg treated branch saphenous vein(s). 2. Persistent spider veins. 3. Short segment of deep vein thrombus within distal posterior tibial vein. PLAN: 1. Sclerotherapy. 2. Short segment of deep vein thrombus within distal posterior tibial vein. Patient is undergoing eye surgery in a few days so will not begin taking aspirin. Consider follow-up ultrasound evaluation in 2 weeks to document natural body clearing of the thrombus. Nurse notes, history and physical were reviewed and confirmed, see attached forms. The nurse was present throughout the physical exam and consultation Dictated by: Jonathan Mas M.D. on 12/17/2023 at 10:02 Approved by: Jonathan Mas M.D. on 12/17/2023 at 10:08
--- NOTE | 2023-12-17 09:25 | VEIN_ITS ---
Patient Name: AUDREY MUÑOZ MR#: [id number] : 1975 Exam Date: 12/17/2023 Ordering Doctor: DR JONATHAN HOLLINGSWORTH M.D. RADIOLOGY REPORT PROCEDURE: [facility] EXT VENOUS RT LMTD COMPARISON: [facility] EXT VENOUS RT [facility], 12/03/2023. INDICATIONS: I80.01 - Phlebitis and thrombophlebitis of superficial veins right leg TECHNIQUE: Lower extremity carver scale and Duplex Doppler evaluation of the deep venous system from the inguinal ligament through the calf veins. FINDINGS: REGION: Right lower extremity. THROMBI: Positive for DVT. Chemically induced thrombus in multiple varicose veins right leg. Thrombus extends into PTV distal lower leg in a 5-6 cm segment. COMPRESSIBILITY: Non-compressible segments. FLOW: Normal waveform and antegrade flow between 5 and 20 cm/s.Areas of no flow corresponding to thrombus OTHER: Mutliple small varicose veins remain. Largest measures 3.5 mm in proximal anterior thigh. CONCLUSION: 1. Successful post ablation occlusion of treated right leg incompetent branch saphenous varicosities. Dictated by: Jonathan Hollingsworth M.D. on 12/17/2023 at 09:47 Approved by: Jonathan Hollingsworth M.D. on 12/17/2023 at 10:02
--- OUTSIDE RECORDS SUMMARY | 2023-12-17 09:30 | XMS_ITS | CCD ---
Author Organization [facility] Care Team Providers Care Risk Management Specialist Name Role Phone YESICA NICKERSON Primary Care Physician AICHHOLZ, FELT HAT FLANGING OPERATOR YESICA Primary Care Unavailable AICHHOLZ, FELT HAT FLANGING OPERATOR YESICA Admitting Unavailable DR DOUGLAS SOLANO V Consulting Unavailable AICHHOLZ, FELT HAT FLANGING OPERATOR YESICA Attending Unavailable AICHHOLZ, FELT HAT FLANGING OPERATOR YESICA Consulting Unavailable AICHHOLZ, FELT HAT FLANGING OPERATOR YESICA Attending Unavailable AICHHOLZ, FELT HAT FLANGING OPERATOR YESICA Consulting Unavailable AICHHOLZ, FELT HAT FLANGING OPERATOR YESICA Primary Care Unavailable AICHHOLZ, FELT HAT FLANGING OPERATOR YESICA Admitting Unavailable AICHHOLZ, FELT HAT FLANGING OPERATOR YESICA Attending Unavailable AICHHOLZ, FELT HAT FLANGING OPERATOR YESICA Consulting Unavailable AICHHOLZ, FELT HAT FLANGING OPERATOR YESICA Primary Care Unavailable AICHHOLZ, FELT HAT FLANGING OPERATOR YESICA Admitting Unavailable AICHHOLZ, FELT HAT FLANGING OPERATOR YESICA Attending Unavailable AICHHOLZ, FELT HAT FLANGING OPERATOR YESICA Consulting Unavailable AICHHOLZ, FELT HAT FLANGING OPERATOR YESICA Primary Care Unavailable AICHHOLZ, FELT HAT FLANGING OPERATOR YESICA Admitting Unavailable DR JONATHAN HOLLINGSWORTH Consulting Unavailable AICHHOLZ, FELT HAT FLANGING OPERATOR YESICA Consulting Unavailable AICHHOLZ, FELT HAT FLANGING OPERATOR YESICA Primary Care Unavailable AICHHOLZ, FELT HAT FLANGING OPERATOR YESICA Admitting Unavailable AICHHOLZ, FELT HAT FLANGING OPERATOR YESICA Attending Unavailable Elise Stone Unavailable MD Gopal Potter Attending Provider [phone] Yesica Nickerson Primary Care Provider Tika Otero Unavailable Boby Cevallos Attending Unavailable Boby Cevallos Attending Unavailable Brian Leblanc MD Primary Care Provider Aicsirena DECORATION CHECKER, Yesica Unavailable Yesica Nickerson Primary Care Provider MD Salinas White Attending Provider [phone] YESICA NICKERSON Attending Unavailable ZEESHAN BENSON Referring [...] Drug Allergy 06-29-19 Unknown (qualifier value), Unknown [facility] (6 sources) Iodine; Translations: [iodine containing compounds] Drug allergy Eruption of skin (disorder) [facility] (11 sources) PARoxetine; Translations: [paroxetine] Drug Allergy 06-29-19 23 Unknown (qualifier value), Unknown [facility] (11 sources) Povidone-Iodine; Translations: [povidone iodine topical] Drug Allergy 06-29-19 Unknown (qualifier value) [facility] (8 sources) rofecoxib; Translations: [rofecoxib] Drug Allergy 06-29-19 23 Unknown (qualifier value) [facility] (11 sources) Sertraline; Translations: [sertraline] Drug Allergy 06-29-19 23 Unknown (qualifier value), Unknown [facility] (1 source) Adhesive agent Drug allergy (disorder) [facility] (5 sources) Iodine Drug Allergy 01-27-20 13 burning sensation, Redness of Skin, Redness of Skin, burning sensation [facility] (1 source) Latex Drug allergy (disorder) [facility] (3 sources) Cortisone; Translations: [cortisone] Drug Allergy 06-29-19 23 Itching [facility] (3 sources) Iodine Drug Allergy 01-25-20 23 [facility] (3 sources) methylPREDNISolone Drug Allergy 01-25-20 Itching [facility] (3 sources) Povidone-Iodine Drug Allergy 05-27-19 Other [facility] (3 sources) rofecoxib Drug Allergy 04-14-19 Unknown [facility] (1 source) Amoxicillin Drug Allergy 01-21-20 [facility] (1 source) Iodine Drug Allergy 01-21-20 [facility] (1 source) PARoxetine Drug Allergy 06-29-19 [facility] (1 source) Povidone-Iodine Drug Allergy 06-29-19 [facility] (1 source) rofecoxib Drug Allergy 06-29-19 [facility] (1 source) Sertraline Drug Allergy 06-29-19 [facility] Medications Current Medications Medication Drug Class(es) [...] plexus disorders] Onset: 04-29-2023 04-29-2023 Chronic Other non-traumatic joint disorders (1 source) Pain in unspecified joint; Translations: [Pain in unspecified joint] Onset: 12-04-2023 Episodic Other nutritional; endocrine; and metabolic disorders (1 [...] Basophils/100 WBC (Bld) 0.9 % Normal . [facility] Comment on above: Performed By: #### C 3, CH50, C4 #### [facility] , #### ADDONUAPLUS, CRP, CREAT, ESR, CBC #### [facility] [address] Automated basophil countOrde red By: Salinas White on 12-04-2023 Basophils (Bld) [#/Vol] 0.0 10*3/uL Normal 0.0-0.2 [facility] Comment on above: Performed By: #### C 3, CH50, C4 #### [facility] , #### ADDONUAPLUS, CRP, CREAT, ESR, CBC #### [facility] [address] Automated blood monocyte cou ntOrdered By: Salinas White on 12-04-2023 Monocytes (Bld) [#/Vol] 0.3 10*3/uL Normal 0.0-0.8 [facility] Comment on above: Performed By: #### C 3, CH50, C4 #### [facility] , #### ADDONUAPLUS, CRP, CREAT, ESR, CBC #### [address] Automated eosinophil %Ordere d By: Salinas White on 12-04-2023 Eosinophils/100 WBC (Bld) 2.7 % Normal . [facility] Comment on above: Performed By: #### C 3, CH50, C4 #### [facility] , #### ADDONUAPLUS, CRP, CREAT, ESR, CBC #### [address] Automated eosinophil countOr dered By: Salinas White on 12-04-2023 Eosinophils (Bld) [#/Vol] 0.1 10*3/uL Normal 0.0-0.45 [facility] Comment on above: Performed By: #### C 3, CH50, C4 #### [facility] , #### ADDONUAPLUS, CRP, CREAT, ESR, CBC #### [address] Automated monocyte %Ordered By: Salinas White on 12-04-2023 Monocytes/100 WBC (Bld) 6.1 % Normal . [facility] Comment on above: Performed By: #### C 3, CH50, C4 #### [facility] , #### ADDONUAPLUS, CRP, CREAT, ESR, CBC #### [address] Automated neutrophil %Ordere d By: Salinas White on 12-04-2023 Neutrophils/100 WBC (Bld) 50.0 % Normal . [facility] Comment on above: Performed By: #### C 3, CH50, C4 #### [facility] , #### ADDONUAPLUS, CRP, CREAT, ESR, CBC #### [address] Bacteria [Presence] in Urine by AutomatedOrdered By: Salinas White on 12-04-2023 Bacteria Auto Ql (U) Rare [HPF] None Seen [facility] Bilirubin Test strip Ql (U)O rdered By: Slainas White on 12-04-2023 Bilirubin Ql (U) Negative Negative [facility] C reactive protein [Mass/vol ume] in Serum or PlasmaOrdered By: Salinas White on 12-04-2023 CRP [Mass/Vol] < 0.5 mg/dL 0.0-0.5 [facility] C-Reactive Proteinon 024 CRP [Mass/Vol] mg/L Normal 0.0-0.5 [facility] Comment on above: Result Comment: PERF ORMED BY: [place] [address] PATHOLOGIST DIPPING MACHINE OPERATOR LYDIA JACKSON M.D. Performed By: #### C 3, CH50, C4 #### [facility] , #### ADDONUAPLUS, CRP, CREAT, ESR, CBC #### [address] Color of Urine by AutoOrdere d By: Salinas White on 12-04-2023 Color (U) Light-yellow Normal Yellow [facility] Comment on above: Order Comment: Name Collection Type:: Clean-Voided Midstream Performed By: #### C 3, CH50, C4 #### [facility] , #### ADDONUAPLUS, CRP, CREAT, ESR, CBC #### [facility] [address] [place] [address] Complement C3on 12-04-2023 Complement C3 125 mg/dL Normal 82-167 [facility] Comment on above: Result Comment: Perf ormed at: - [facility] [address] [id number] Lookback Coordinator: Bill Lagunas PhD, Phone: [phone] Performed By: #### C 3, CH50, C4 #### [facility] , #### ADDONUAPLUS, CRP, CREAT, ESR, CBC #### [place] [address] [place] Complement C4on 12-04-2023 Complement C4 29 mg/dL Normal 12-38 [facility] Comment on above: Result Comment: PERF ORMED BY: [place] [address] PATHOLOGIST DIPPING MACHINE OPERATOR LYDIA JACKSON M.D. Performed By: #### C 3, CH50, C4 #### [facility] , #### ADDONUAPLUS, CRP, CREAT, ESR, CBC #### [address] Complement Total (CH50)on Complement Total (CH50) 52 Normal >41 [facility] Comment on above: Result [...] of range values. Performed at: - [facility] [address] [id number] Lookback Coordinator: Bill Lagunas PhD, Phone: [phone] PERFORMED BY: [place] [address] PATHOLOGIST DIPPING MACHINE OPERATOR LYDIA JACKSON M.D. Performed By: #### C 3, CH50, C4 #### [facility] , #### ADDONUAPLUS, CRP, CREAT, ESR, CBC #### [address] Complete Blood Count Auto Di ffon 12-04-2023 Mean Corpuscular HGB Conc 34.1 g/dL Normal 32.0-35.0 [facility] Comment on above: Performed By: #### C 3, CH50, C4 #### [facility] , #### ADDONUAPLUS, CRP, CREAT, ESR, CBC #### [address] [place] [address] [place] NRBC% 0.1 /100{WBC} Normal 0-0.5 [facility] Comment on above: Performed By: #### C 3, CH50, C4 #### [facility] , #### ADDONUAPLUS, CRP, CREAT, ESR, CBC #### [place] [address] [place] Creatinineon 12-04-2023 GFR/1.73 sq M.predicted MDRD (S/P/Bld) [Vol rate/Area] mL/min/{1.73_m2} Normal [facility] Comment on above: Performed By: #### C 3, CH50, C4 #### [facility] , #### ADDONUAPLUS, CRP, CREAT, ESR, CBC #### [address] Creatinine [Mass/volume] in Serum or PlasmaOrdered By: Salinas White on 12-04-2023 Creatinine [Mass/Vol] 0.71 mg/dL Normal 0.60-1.20 [facility] Comment on above: Performed By: #### C 3, CH50, C4 #### [facility] , #### ADDONUAPLUS, CRP, CREAT, ESR, CBC #### [address] Dipstick and Microscopicon 1 Bacteria,Urine Rare Normal None Seen [facility] Comment on above: Order Comment: Name Collection Type:: Clean-Voided Midstream Performed By: #### C 3, CH50, C4 #### [facility] , #### ADDONUAPLUS, CRP, CREAT, ESR, CBC #### [facility] [address] [place] [address] [place] Bilirubin,Urine Negative Normal Negative [facility] Comment on above: Order Comment: Name Collection Type:: Clean-Voided Midstream Performed By: #### C 3, CH50, C4 #### [facility] , #### ADDONUAPLUS, CRP, CREAT, ESR, CBC #### [address] Glucose Ql (U) Normal Normal Normal [facility] Comment on above: Order Comment: Name Collection Type:: Clean-Voided Midstream Performed By: #### C 3, CH50, C4 #### [facility] , #### ADDONUAPLUS, CRP, CREAT, ESR, CBC #### [address] Hyaline Casts,Urine None Normal 0-8 [facility] Comment on above: Order Comment: Name Collection Type:: Clean-Voided Midstream Performed By: #### C 3, CH50, C4 #### [facility] , #### ADDONUAPLUS, CRP, CREAT, ESR, CBC #### [address] Mucus,Urine Rare Normal [facility] Comment on above: Order Comment: Name Collection Type:: Clean-Voided Midstream Result Comment: PERF ORMED BY: [place] [address] PATHOLOGIST DIPPING MACHINE OPERATOR LYDIA JACKSON M.D. Performed By: #### C 3, CH50, C4 #### [facility] , #### ADDONUAPLUS, CRP, CREAT, ESR, CBC #### [address] Nitrite,Urine Negative Normal Negative [facility] Comment on above: Order Comment: Name Collection Type:: Clean-Voided Midstream Performed By: #### C 3, CH50, C4 #### [facility] , #### ADDONUAPLUS, CRP, CREAT, ESR, CBC #### [address] Occult Blood,Urine Negative Normal Negative [facility] Comment on above: Order Comment: Name Collection Type:: Clean-Voided Midstream Performed By: #### C 3, CH50, C4 #### [facility] , #### ADDONUAPLUS, CRP, CREAT, ESR, CBC #### [address] Protein,Urine Negative Normal Negative [facility] Comment on above: Order Comment: Name Collection Type:: Clean-Voided Midstream Performed By: #### C 3, CH50, C4 #### [facility] , #### ADDONUAPLUS, CRP, CREAT, ESR, CBC #### [address] RBC,Urine None Seen Normal 0-4 [facility] Comment on above: Order Comment: Name Collection Type:: Clean-Voided Midstream Performed By: #### C 3, CH50, C4 #### [facility] , #### ADDONUAPLUS, CRP, CREAT, ESR, CBC #### [address] Specificy [place],Urine 1.018 Normal 1.001-1.030 [facility] Comment on above: Order Comment: Name Collection Type:: Clean-Voided Midstream Performed By: #### C 3, CH50, C4 #### [facility] , #### ADDONUAPLUS, CRP, CREAT, ESR, CBC #### [address] Squamous Epithelial Cell,Urine 3-4 High 0-2 [facility] Comment on above: Order Comment: Name Collection Type:: Clean-Voided Midstream Performed By: #### C 3, CH50, C4 #### [facility] , #### ADDONUAPLUS, CRP, CREAT, ESR, CBC #### [address] Urobilinogen,Urine Normal Normal Normal [facility] Comment on above: Order Comment: Name Collection Type:: Clean-Voided Midstream Performed By: #### C 3, CH50, C4 #### [facility] , #### ADDONUAPLUS, CRP, CREAT, ESR, CBC #### [address] WBC,Urine 1-2 Normal 0-4 [facility] Comment on above: Order Comment: Name Collection Type:: Clean-Voided Midstream Performed By: #### C 3, CH50, C4 #### [facility] , #### ADDONUAPLUS, CRP, CREAT, ESR, CBC #### [address] Epithelial cells.squamous [# /area] in Urine sediment by Automated countOrdered By: Salinas White on 12-04-2023 Epithelial cells.squamous Auto (Urine sed) [#/Area] 3-4 [HPF] High 0-2 [facility] Erythrocyte Sedimentation Ra florentino 12-04-2023 ESR (Bld) [Velocity] 6 mm/h Normal 0-19 [facility] Comment on above: Result Comment: PERF ORMED BY: [place] [address] PATHOLOGIST DIPPING MACHINE OPERATOR LYDIA JACKSON M.D. Performed By: #### C 3, CH50, C4 #### [facility] , #### ADDONUAPLUS, CRP, CREAT, ESR, CBC #### [address] Erythrocyte distribution wid th [Ratio] by Automated countOrdered By: Salinas White on 12-04-2023 Erythrocyte distribution width (RBC) [Ratio] 13.1 % Normal 11.9-15.3 [facility] Comment on above: Performed By: #### C 3, CH50, C4 #### [facility] , #### ADDONUAPLUS, CRP, CREAT, ESR, CBC #### [address] [place] [address] [place] Erythrocyte sedimentation ra te by Photometric methodOrdered By: Salinas White on 12-04-2023 ESR Photometric method (Bld) [Velocity] 6 mm/hr 0-19 [facility] Erythrocytes [#/area] in Uri ne sediment by Automated countOrdered By: Salinas White on 12-04-2023 RBC Auto (Urine sed) [#/Area] None seen [HPF] 0-4 [facility] Erythrocytes [#/volume] in B lood by Automated countOrdered By: Salinas White on 12-04-2023 RBC (Bld) [#/Vol] 4.65 10*6/uL Normal 3.60-5.00 [facility] Comment on above: Performed By: #### C 3, CH50, C4 #### [facility] , #### ADDONUAPLUS, CRP, CREAT, ESR, CBC #### [facility] [address] [place] [address] Glucose [Mass/volume] in Uri ne by Test stripOrdered By: Salinas White on 12-04-2023 Glucose Test strip (U) [Mass/Vol] Normal mg/dL Normal [facility] Hematocrit [Volume Fraction] of Blood by Automated countOrdered By: Salinas White on 12-04-2023 Hematocrit (Bld) [Volume fraction] 41.2 % Normal 34.0-46.4 [facility] Comment on above: Performed By: #### C 3, CH50, C4 #### [facility] , #### ADDONUAPLUS, CRP, CREAT, ESR, CBC #### [facility] [address] [place] [address] Hemoglobin Test strip Ql (U) Ordered By: Salinas White on 12-04-2023 Hemoglobin Ql (U) Negative Negative [facility] Hemoglobin [Mass/volume] in BloodOrdered By: Salinas White on 12-04-2023 Hemoglobin (Bld) [Mass/Vol] 14.1 g/dL Normal 11.8-15.4 [facility] Comment on above: Performed By: #### C 3, CH50, C4 #### [facility] , #### ADDONUAPLUS, CRP, CREAT, ESR, CBC #### [facility] [address] [place] [address] Hyaline casts [#/area] in Ur ine sediment by Automated countOrdered By: Salinas White on 12-04-2023 Hyaline casts Auto (Urine sed) [#/Area] None [LPF] 0-8 [facility] Ketones [Presence] in Urine by Test stripOrdered By: Salinas White on 12-04-2023 Ketones Ql (U) Negative Normal Negative [facility] Comment on above: Order Comment: Name Collection Type:: Clean-Voided Midstream Performed By: #### C 3, CH50, C4 #### [facility] , #### ADDONUAPLUS, CRP, CREAT, ESR, CBC #### [facility] [address] [place] [address] Leukocyte esterase [Presence ] in Urine by Test stripOrdered By: Salinas White on 12-04-2023 Leukocyte esterase Test strip Ql (U) Negative Normal Negative [facility] Comment on above: Order Comment: Name Collection Type:: Clean-Voided Midstream Performed By: #### C 3, CH50, C4 #### [facility] , #### ADDONUAPLUS, CRP, CREAT, ESR, CBC #### [facility] [address] [place] [address] Leukocytes [#/area] in Urine sediment by Automated countOrdered By: Salinas White on 12-04-2023 WBC Auto (Urine sed) [#/Area] 1-2 [HPF] 0-4 [facility] Leukocytes [#/volume] correc carol for nucleated erythrocytes in Blood by Automated counOrdered By: Salinas White on 12-04-2023 WBC corrected for nucl RBC Auto (Bld) [#/Vol] 4.5 10*3/uL 3.8-11.6 [facility] Leukocytes [#/volume] in Blo od by Automated countOrdered By: Salinas White on 12-04-2023 WBC (Bld) [#/Vol] 4.5 10*3/uL Normal 3.8-11.6 [facility] Comment on above: Performed By: #### C 3, CH50, C4 #### [facility] , #### ADDONUAPLUS, CRP, CREAT, ESR, CBC #### [address] Lymphocytes [#/volume] in Bl ood by Automated countOrdered By: Salinas White on 12-04-2023 Lymphocytes (Bld) [#/Vol] 1.8 10*3/uL Normal 1.00-4.8 [facility] Comment on above: Performed By: #### C 3, CH50, C4 #### [facility] , #### ADDONUAPLUS, CRP, CREAT, ESR, CBC #### [address] Lymphocytes/100 leukocytes i n Blood by Automated countOrdered By: Salinas White on 12-04-2023 Lymphocytes/100 WBC (Bld) 40.3 % Normal . [facility] Comment on above: Performed By: #### C 3, CH50, C4 #### [facility] , #### ADDONUAPLUS, CRP, CREAT, ESR, CBC #### [address] MCH [Entitic mass] by Automa carol countOrdered By: Salinas White on 12-04-2023 MCH (RBC) [Entitic mass] 30.3 pg Normal 24.7-34.3 [facility] Comment on above: Performed By: #### C 3, CH50, C4 #### [facility] , #### ADDONUAPLUS, CRP, CREAT, ESR, CBC #### [address] MCHC Auto (RBC) [Mass/Vol]Or dered By: Salinas White on 12-04-2023 MCHC (RBC) [Mass/Vol] 34.1 g/dL 32.0-35.0 [facility] MCV [Entitic volume] by Auto mated countOrdered By: Salinas White on 12-04-2023 MCV (RBC) [Entitic vol] 88.7 fL Normal 80-100 [facility] Comment on above: Performed By: #### C 3, CH50, C4 #### [facility] , #### ADDONUAPLUS, CRP, CREAT, ESR, CBC #### [facility] [address] Mucus [Presence] in Urine by AutomatedOrdered By: Salinas White on 12-04-2023 Mucus Auto Ql (U) Rare [LPF] [facility] Neutrophils [#/volume] in Bl ood by Automated countOrdered By: Salinas White on 12-04-2023 Neutrophils (Bld) [#/Vol] 2.3 10*3/uL Normal 1.8-7.7 [facility] Comment on above: Performed By: #### C 3, CH50, C4 #### [facility] , #### ADDONUAPLUS, CRP, CREAT, ESR, CBC #### [facility] [address] Nitrite Test strip Ql (U)Ord ered By: Salinas White on 12-04-2023 Nitrite Ql (U) Negative Negative [facility] No Panel InformationOrdered By: Salinas White on 12-04-2023 Estimated GFR (CKD-EPI) > 60.0 mL/Min [facility] Creatinine Clearance (Chem N/A [facility] Nucleated erythrocytes [Pres ence] in Blood by Automated countOrdered By: Salinas White on 12-04-2023 Nucleated RBC Auto Ql (Bld) 0.1 /100{WBC} 0-0.5 [facility] Platelet mean volume [Entiti c volume] in Blood by Automated countOrdered By: Salinas White on 12-04-2023 Platelet mean volume (Bld) [Entitic vol] 9.7 fL Normal 6.3-10.7 [facility] Comment on above: Performed By: #### C 3, CH50, C4 #### [facility] , #### ADDONUAPLUS, CRP, CREAT, ESR, CBC #### [facility] [address] Platelets [#/volume] in Bloo d by Automated countOrdered By: Salinas White on 12-04-2023 Platelets (Bld) [#/Vol] 205 10*3/uL Normal 150-450 [facility] Comment on above: Performed By: #### C 3, CH50, C4 #### [facility] , #### ADDONUAPLUS, CRP, CREAT, ESR, CBC #### [facility] [address] [place] [address] [place] Protein Test strip (U) [Mass /Vol]Ordered By: Salinas White on 12-04-2023 Protein (U) [Mass/Vol] Negative Negative [facility] Specific gravity Test strip (U) [Rel density]Ordered By: Salinas White on 12-04-2023 Specific gravity (U) [Rel density] 1.018 1.001-1.030 [facility] Urine appearanceOrdered By: Salinas White on 12-04-2023 Appearance (U) Clear Normal Clear [facility] Comment on above: Order Comment: Name Collection Type:: Clean-Voided Midstream Performed By: #### C 3, CH50, C4 #### [facility] , #### ADDONUAPLUS, CRP, CREAT, ESR, CBC #### [facility] [address] [place] [address] [place] Urobilinogen Test strip (U) [Mass/Vol]Ordered By: Salinas White on 12-04-2023 Urobilinogen (U) [Mass/Vol] Normal mg/dL Normal [facility] pH of Urine by Test stripOrd ered By: Salinas White on 12-04-2023 pH (U) 6.0 [pH] Normal 5.0-9.0 [facility] Comment on above: Order Comment: Name Collection Type:: Clean-Voided Midstream Performed By: #### C 3, CH50, C4 #### [facility] , #### ADDONUAPLUS, CRP, CREAT, ESR, CBC #### [facility] [address] ED Note-Physicianon 09-29-19 ED Note-Physician ED Note-Physician [...] medications Follow-up With When Contact Information YESICA KRISHAN In 3 days 09/26/2023 EDT [address] [place] [address] [phone] Business (1) Additional Instructions: Patient Education Dizziness [...] made to ensure accuracy, however, inadvertently computerized tobacco primer machine operator mistakes may be present. Appropriate [...] compounds (Rash) (more content not included)... Normal [facility] Comment on above: Result Comment: Elec tronically Signed By: Fadi Mccoy PA-C\.br\Date and Time Signed: 09/23/23 12:54 EDT\.br\Electronically Co-Signed By: Boby Cevallos DO\.br\Date and Time Co-Signed: 09/29/23 09:31 EDT BB Draw & Holdon 09-23-2023 BB D&H Sample drawn for Blood Ba Normal [facility] Comment on above: Performed By: #### 1 [id number] #### [facility] [address] [place] [address] CBC w/ Auto Diffon 4 Basophils/100 WBC (Bld) 0.6 % Normal 0.0-2.0 [facility] Comment on above: Performed By: #### 2 [id number] #### [facility] [address] [place] [address] Basophils/Leukocytes Auto (Bld) [Pure # fraction] 0.0 E9/L Normal 0.0-0.2 [facility] Comment on above: Performed By: #### 2 [id number] #### [facility] [address] [place] [address] Eosinophils (Bld) [#/Vol] 0.0 E9/L Normal 0.0-0.5 [facility] Comment on above: Performed By: #### 2 [id number] #### [facility] [address] [place] [address] Eosinophils/100 WBC (Bld) 0.6 % Normal 0.0-8.0 [facility] Comment on above: Performed By: #### 2 [id number] #### [facility] [address] [place] [address] Erythrocyte distribution width (RBC) [Ratio] 12.8 % Normal 10.9-14.2 [facility] Comment on above: Performed By: #### 2 [id number] #### [facility] [address] [place] [address] Hematocrit (Bld) [Volume fraction] 42.7 % Normal 34.0-46.0 [facility] Comment on above: Performed By: #### 2 [id number] #### [facility] [address] [place] [address] Hemoglobin (Bld) [Mass/Vol] 14.7 g/dL Normal 12.0-16.0 [facility] Comment on above: Performed By: #### 2 [id number] #### [facility] [address] [place] [address] Lymphocytes (Bld) [#/Vol] 1.8 E9/L Normal 1.0-4.0 [facility] Comment on above: Performed By: #### 2 [id number] #### [facility] [address] [place] [address] Lymphocytes/100 WBC (Bld) 30.1 % Normal 14.0-50.0 [facility] Comment on above: Performed By: #### 2 [id number] #### [facility] [address] [place] [address] MCH (RBC) [Entitic mass] 29.9 pg Normal 27.0-34.0 [facility] Comment on above: Performed By: #### 2 [id number] #### [facility] [address] [place] [address] MCHC (RBC) [Mass/Vol] 34.4 g/dL Normal 31.4-36.0 [facility] Comment on above: Performed By: #### 2 [id number] #### [facility] [address] [place] [address] MCV (RBC) [Entitic vol] 86.8 fL Normal 80.0-100.0 [facility] Comment on above: Performed By: #### 2 [id number] #### [facility] [address] [place] [address] Monocytes (Bld) [#/Vol] 0.4 E9/L Normal 0.2-1.0 [facility] Comment on above: Performed By: #### 2 [id number] #### [facility] [address] [place] [address] Neutrophils (Bld) [#/Vol] 3.7 E9/L Normal 2.0-7.5 [facility] Comment on above: Performed By: #### 2 [id number] #### [facility] [address] [place] [address] Neutrophils/100 WBC (Bld) 61.2 % Normal 36.0-75.0 [facility] Comment on above: Performed By: #### 2 [id number] #### [facility] [address] [place] [address] Platelet mean volume (Bld) [Entitic vol] 9.4 fL Normal 6.4-10.8 [facility] Comment on above: Performed By: #### 2 [id number] #### [facility] [address] [place] [address] Platelets (Bld) [#/Vol] 184.0 E9/L Normal 150.0-500.0 [facility] Comment on above: Performed By: #### 2 [id number] #### [facility] [address] [place] [address] RBC (Bld) [#/Vol] 4.9 E12/L Normal 4.3-5.9 [facility] Comment on above: Performed By: #### 2 [id number] #### [facility] [address] [place] [address] WBC corrected for nucl RBC Auto (Bld) [#/Vol] 6.0 E9/L Normal 4.0-11.0 [facility] Comment on above: Performed By: #### 2 [id number] #### [facility] [address] [place] [address] CHEMISTRYOrdered By: SYSTEM SYSTEM on 09-23-2023 Albumin [...] Sensitivity Troponin I Instructions For Use, Angel [place], September 2017) Urea nitrogen [Mass/Vol] 24 mg/dL High 5 - 21 mg/dL Remisol Chem Urea nitrogen/Creatinine [Mass ratio] 27 mg/mg High 10 - 20 Remisol Chem CHEMISTRYOrdered By: Lab ROP User on 09-23-2023 Glucose [Mass/Vol] 89 mg/dL Normal 55 - 99 mg/dL [facility] POC Subsection Comment on above: Result Comment: Trixie dominique Meter POC Device SN [id number] Invalid Interpretation Code [facility] POC Subsection POC User ID [id number] Invalid Interpretation Code [facility] Subsection POC Username SANG HEBERT Invalid Interpretation Code [facility] POC Subsection CMPon 09-23-2023 Albumin [Mass/Vol] 4.7 g/dL Normal 3.3-5.0 [facility] Comment on above: Performed By: #### 2 [id number] #### [facility] [address] [place] [address] Albumin/Globulin (S) [Mass conc ratio] 2.0 Normal 1.1-2.2 [facility] Comment on above: Performed By: #### 2 [id number] #### [facility] [address] [place] [address] ALP [Catalytic activity/Vol] 47 Int._Unit/L Normal 21-98 [facility] Comment on above: Performed By: #### 2 [id number] #### [facility] [address] [place] [address] ALT No additional P-5'-P [Catalytic activity/Vol] 22 Int._Unit/L Normal 6-46 [facility] Comment on above: Performed By: #### 2 [id number] #### [facility] [address] [place] [address] Anion gap [Moles/Vol] 10 mmol/L Normal 6-16 [facility] Comment on above: Performed By: #### 2 [id number] #### [facility] [address] [place] [address] AST [Catalytic activity/Vol] 19 Int._Unit/L Normal 5-43 [facility] Comment on above: Performed By: #### 2 [id number] #### [facility] [address] [place] [address] Bilirubin [Mass/Vol] 0.4 mg/dL Normal 0.0-1.1 [facility] Comment on above: Performed By: #### 2 [id number] #### [facility] [address] [place] [address] Calcium [Mass/Vol] 9.9 mg/dL Normal 8.9-11.1 [facility] Comment on above: Performed By: #### 2 148135 #### [facility] [address] [place] [address] Chloride [Moles/Vol] 104 mmol/L Normal 101-111 [facility] Comment on above: Performed By: #### 2 [id number] #### [facility] [address] [place] [address] CO2 [Moles/Vol] 31 mmol/L Normal 21-31 [facility] Comment on above: Performed By: #### 2 [id number] #### [facility] [address] [place] [address] Creatinine [Mass/Vol] 0.9 mg/dL Normal 0.5-1.3 [facility] Comment on above: Performed By: #### 2 [id number] #### [facility] [address] [place] [address] Globulin (S) [Mass/Vol] 2.4 g/dL Normal 1.4-4.0 [facility] Comment on above: Performed By: #### 2 [id number] #### [facility] [address] [place] [address] Glucose [Mass/Vol] 101 mg/dL Normal 55-199 [facility] Comment on above: Performed By: #### 2 [id number] #### [facility] [address] [place] [address] Potassium [Moles/Vol] 3.5 mmol/L Normal 3.5-5.3 [facility] Comment on above: Performed By: #### 2 [id number] #### [facility] [address] [place] [address] Protein [Mass/Vol] 7.1 g/dL Normal 6.0-7.8 [facility] Comment on above: Performed By: #### 2 [id number] #### [facility] [address] [place] [address] Sodium [Moles/Vol] 141 mmol/L Normal 135-145 [facility] Comment on above: Performed By: #### 2 239215 #### [facility] [address] [place] [address] Urea nitrogen [Mass/Vol] 24 mg/dL High 5-21 [facility] Comment on above: Performed By: #### 2 [id number] #### [facility] [address] [place] [address] Urea nitrogen/Creatinine [Mass ratio] 27 No Units High 10-20 [facility] Comment on above: Performed By: #### 2 [id number] #### [facility] [address] [place] [address] COAGULATIONOrdered By: Abigail Robles on 09-23-2023 aPTT Coag (PPP) [Time] 35.1 s Normal 25.1 - 36.5 second(s) [facility] Auto Coag Comment on above: Interpretive Data: Xochitl romero 15 days - 4 weeks 1 - [...] the same coagulation reagent and instrumentation as [facility]. Currently there are no coagulation studies available worldwide for children to 14 days, and no normal ranges. Heparin therapeutic range (represented by Anti-Factor Xa activity of 0.2 - 0.4 U/mL) corresponds to PTT of 56.6 - 109.0 sec. INR Coag (PPP) [Relative time] 1.01 {INR} Invalid Interpretation Code [facility] Comment on above: Interpretive Data: I NR results are specifically intended to assess patients stabilized on long-term Anticoagulation therapy suggested INR s Less Intensive Anticoagulation 2.0 3.0 Conventional Range 3.0 4.5 PT Coag (PPP) [Time] 11.3 s Normal 9.4 - 1 2.5 second(s) [facility] Comment on above: Interpretive Data: [...] the same coagulation reagent and instrumentation as [facility]. Currently there are no coagulation studies available [...] Technologist: CASI Quiñones Read 09/23/2023 11:15 am EDTPavel M.D., William L neg for bleed. Normal [facility] Capillary Glucose POCon 08-0 Glucose [Mass/Vol] 89 mg/dL Normal 55-99 [facility] Comment on above: Result Comment: Trixie fox Meter Performed By: #### 2 [id number] #### [facility] [address] [place] [address] ED Clinical Summaryon 2023 ED Clinical Summary ED Clinical Summary [address] [address] ED Clinical Summary Person Information Name: AUDREY ISAACS [facility] Age: 48 Years : 1975 Sex: Female Language: Latvian PCP: YESICA NICKERSON CNP Marital Status: Visit [...] 09/23/2023 13:01:25 09/23/2023 13:01:25 09/23/2023 13:01:25 ADDRESS: [address] [place] [id number] PHYS DOC NOTES: MEDICAL INFORMATION: Prescriptions Given: Medications to Continue with No Changes Other Medications alprazolam (alprazolam 0.25 mg Tab) 30 tab(s). metaxalone (metaxalone 800 mg Tab) omeprazole (omeprazole 40 mg Cap-DR) 30 EA, TAKE 1 CAPSULE BY MOUTH EVERY DAY. PATIENT EDUCATION INFORMATION: Instructions: Dizziness Follow up: With: Address: When: YESICA NICKERSON [address] [place], [place] [phone] Business (1) In 3 days 09/26/2023 DIAGNOSIS: Dizziness; Weakness Normal [facility] ED Patient Summaryon ED Patient Summary ED Patient Summary [address] [place] [id number] Patient Discharge Instructions Person Information Name: AUDREY ISAACS Age: 48 Years Arrival Date: 09/23/2023 10:54:19 Discharge Diagnosis: Dizziness; Weakness Primary Care Physician: YESICA NICKERSON CNP Provider Information Primary Provider: Boby Cevallos DO Advanced Engine Cleaner:Fadi Mccoy PA-C The exam and treatment you received in the Emergency Department were for an urgent problem and are not intended as complete care. It is important that you follow up with a doctor, nurse practitioner, or physician?s public services assistant for ongoing care. If your symptoms [...] With: Address: When: YESICA NICKERSON [address] [place], [place] [phone] Business (1) In 3 days 09/26/2023 In the event that this physician does not participate in your insurance network, please consult with your insurance company to find a nearby participating provider. Patient Education Materials: Dizziness A MESSAGE TO ALL PATIENTS REGARDING OPIOIDS PRESCRIPTION OPIOIDS: WHAT YOU NEED TO KNOW Prescription opioids can be used to help relieve nchdwifv-ws-mlxztf pain and are often prescribed following a [...] struggling with addiction, tell your health care specialist and ask for guidance or call [facility] National Helpline at 5-179-781-NRN (more content not included)... [facility] HEMATOLOGYOrdered By: Siobhan Robles on 09-23-2023 Basophils/100 [...] Coag (PPP) [Time] 35.1 second(s) Normal 25.1-36.5 [facility] Comment on above: Result Comment: Para [...] the same coagulation reagent and instrumentation as [facility]. Currently there are no coagulation studies available worldwide for children to 14 days, and no normal ranges. Heparin therapeutic range (represented by Anti-Factor Xa activity of 0.2 - 0.4 U/mL) corresponds to PTT of 56.6 - 109.0 sec. Performed By: #### 1 [id number] #### [facility] [address] [place] [address] INR Coag (PPP) [Relative time] 1.01 {INR} Invalid Interpretation Code [facility] Comment on above: Result Comment: INR results are specifically intended to assess patients stabilized on long-term Anticoagulation therapy suggested INR?s ?Less Intensive Anticoagulation? 2.0 ? 3.0 Conventional Range 3.0 ? 4.5 Performed By: #### 1 [id number] #### [facility] [address] [place] [address] PT Coag (PPP) [Time] 11.3 second(s) Normal 9.4-12.5 [facility] Comment on above: Result Comment: 15 [...] the same coagulation reagent and instrumentation as [facility]. Currently there are no coagulation studies available worldwide for children to 14 days, and no normal ranges. Performed By: #### 1 [id number] #### [facility] [address] [place] [address] Troponin 0 Hr.on 09-23-2023 Troponin HS <2.30 Low 10.10-27.10 [facility] Comment on above: Result Comment: The 95% CI (Confidence Interval) PPV (Positive Predictive Value) for myocardial infarction in females is 38 pg/mL, in males 51 pg/mL. The results should be used in conjunction with clinical conditions of myocardial infarction. (Access High Sensitivity Troponin I Instructions For Use, Angel [place], September 2017) Performed By: #### 1 [id number] #### [facility] [address] [place] [address] UA with Cult Rflxon 09-23-19 24 Bilirubin Ql (U) Negative Normal Negative [facility] Comment on above: Performed By: #### 4 [id number] #### [facility] [address] [place] [address] Clarity (U) Clear Normal Clear [facility] Comment on above: Performed By: #### 4 [id number] #### [facility] [address] [place] [address] Color (U) Light-Yellow Normal Yellow [facility] Comment on above: Result Comment: Micr oscopic readings are only performed on those samples that meet specific criteria set forth by [facility]. Performed By: #### 4 [id number] #### [facility] [address] [place] [address] Glucose Ql (U) Negative Normal Negative [facility] Comment on above: Performed By: #### 4 [id number] #### [facility] [address] [place] [address] Hemoglobin Auto test strip (U) [Mass/Vol] Negative Normal Negative [facility] Comment on above: Performed By: #### 4 [id number] #### [facility] [address] [place] [address] Ketones Auto test strip Ql (U) Negative Normal Negative [facility] Comment on above: Performed By: #### 4 [id number] #### [facility] [address] [place] [address] Leukocyte esterase Auto test strip Ql (U) Negative Normal Negative [facility] Comment on above: Performed By: #### 4 [id number] #### [facility] [address] [place] [address] Nitrite Auto test strip Ql (U) Negative Normal Negative [facility] Comment on above: Performed By: #### 4 [id number] #### [facility] [address] [place] [address] pH (U) 5.5 [pH] Invalid Interpretation Code 5.0-9.0 [facility] Comment on above: Performed By: #### 4 [id number] #### [facility] [address] [place] [address] Protein Ql (U) Negative Normal Negative [facility] Comment on above: Performed By: #### 4 [id number] #### [facility] [address] [place] [address] Specific gravity (U) [Rel density] 1.023 Invalid Interpretation Code 1.005-1.030 [facility] Comment on above: Performed By: #### 4 [id number] #### [facility] [address] [place] [address] Urobilinogen (U) [Mass/Vol] Negative Normal Negative [facility] Comment on above: Performed By: #### 4 [id number] #### [facility] [address] [place] [address] Type of Urine collection method Clean Catch Normal [facility] Comment on above: Performed By: #### 4 [id number] #### [facility] [address] [place] [address] URINALYSISOrdered By: SYSTEM SYSTEM on 09-23-2023 Bilirubin Ql (U) Negative Normal Negativemg/ d L FT UA Auto SS Clarity (U) Clear (09/23/23 12:16 PM) Normal Clear [facility] UA Auto SS Color (U) Light-Yellow 1 (09/23/23 12:16 PM) Normal Yellow [facility]A Auto SS Comment on above: Interpretive Data: M icroscopic readings are only performed on those samples that meet specific criteria set forth by [facility]. Glucose Ql (U) Negative Normal [...] Urobilinogen (U) [Mass/Vol] Negative Normal Negativemg/d L [facility] UA Auto SS URINALYSISOrdered By: Fadi Mccoy on 09-23-2023 UA Spec Desc Clean Catch (09/23/23 12:16 PM) Normal [facility] UA Auto SS XR Chest Single Viewon [...] mGy = na DAP = na Normal [facility] eGFRon 09-23-2023 eGFR 79 mL/min/1.73 m2 Normal >=59 [facility] Comment on above: Order Comment: Order added by Discern Expert. Performed By: #### 1 [id number] #### [facility] [address] [place] [address] COVID Quick Testingon 2022 Result Positive [facility] Other No Panel InformationOrdered By: Gopal Potter on 06-28-2022 Cortisol Response to Stimulation See comment [facility] Comment on above: [employer] 11.4 Col: 06/28/22 1000 [place] 30Min 20.6 Col: 06/28/22 1050 [place] 60Min 23.2 Col: 06/28/22 1120 Quick Strepon 06-11-2022 S. pyogenes Org specific cx Ql (Throat) Negative [facility] Other Quick Strep [facility] Other PROF CHEM 8 (BAS METB)on Anion gap [Moles/Vol] 10.7 mmol/L Normal [facility] Comment on above: Performed By: #### B MP #### [facility] [address] [address] [address] Brandon Hodges Calcium [Mass/Vol] 9.3 mg/dL Normal 8.5-10.1 [facility] Comment on above: Performed By: #### B MP #### [facility] [address] [address] [address] Brandon Hodges Chloride [Moles/Vol] 103 mmol/L Normal 98-107 [facility] Comment on above: Performed By: #### B MP #### [facility] [address] [address] [address] Brandon Hodges CO2 [Moles/Vol] 31.5 mmol/L Normal 21.0-32.0 [facility] Comment on above: Performed By: #### B MP #### [facility] [address] [address] [address] Brandon Hodges Creatinine [Mass/Vol] 0.76 mg/dL Normal 0.55-1.02 [facility] Comment on above: Performed By: #### B MP #### [facility] [address] [address] [address] Brandon Hodges EGFR-AF TURKISH >60 Normal >=60 [facility] Comment on above: Performed By: #### B MP #### [facility] [address] [address] [address] Brandon Hodges EGFR-NON AF TURKISH >60 Normal >=60 [facility] Comment on above: Performed By: #### B MP #### [facility] [address] [address] [address] Brandon Hodges Glucose [Mass/Vol] 124 mg/dL Critically high 74-106 [facility] Comment on above: Performed By: #### B MP #### [facility] [address] [address] [address] Brandon Hodges Potassium [Moles/Vol] 4.2 mmol/L Normal 3.5-5.1 [facility] Comment on above: Performed By: #### B MP #### [facility] [address] [address] [address] Brandon Hodges Sodium [Moles/Vol] 141 mmol/L Normal 136-145 [facility] Comment on above: Performed By: #### B MP #### [facility] [address] [address] [address] Brandon Hodges Urea nitrogen [Mass/Vol] 19.0 mg/dL Critically high 7.0-18.0 [facility] Comment on above: Performed By: #### B MP #### [facility] [address] [address] [address] Brandon Hodges Urea nitrogen/Creatinine [Mass ratio] 25.0 mg/mg Normal [facility] Comment on above: Performed By: #### B MP #### [facility] [address] [place] [address] Dr. Brandon Hodges TESTOSTERONE, FREE,DIRECT, T OTALon 04-25-2022 Free Testosterone(Direct) <0.2 Normal 0.0-4.2 [facility] Comment on above: Result Comment: Perf ormed at: BN Performed By: #### I NSULIN #### [facility] [address] [place] [address] Dr. Brandon Hodges Testosterone [Mass/Vol] 3 ng/dL Critically low 4-50 [facility] Comment on above: Result Comment: Perf ormed at: CB Performed By: #### I NSULIN #### [facility] [address] [place] [address] Dr. Brandon Hodges ESTRONEon 04-23-2022 Estrone, Serum 20 pg/mL Normal [facility] Comment on above: Result Comment: Rang e Adult (Premenopausal) 27 - 231 Menstrual Cycle (1-10 days) 19 - 149 Menstrual Cycle (11-20 days) 32 - 176 Menstrual Cycle (21-30 days) 37 - 200 Adult (Postmenopausal) 0 - 125 Performed By: #### I NSULIN #### [facility] [address] [place] [address] Dr. Brandon Hodges REVERSE T3on 04-23-2022 Reverse T3, Serum 36.8 ng/dL Critically high 9.2-24.1 [facility] Comment on above: Result Comment: This test was developed and its performance characteristics determined by [employer]. It has not been cleared or approved by the Food and Drug Administration. Performed By: #### B MP #### [facility] [address] [place] [address] Dr. Brandon Hodges CORTISOLon 04-20-2022 Cortisol 1.0 ug/dL Normal [facility] Comment on above: Result Comment: [place] isol AM 6.2 - 19.4 Cortisol PM 2.3 - 11.9 Performed By: #### C ORTISO #### [facility] [address] [place] [address] Dr. Brandon Hodges DHEA-SULFATEon 04-20-2022 DHEA-Sulfate 55.9 ug/dL Normal 41.2-243.7 [facility] Comment on above: Performed By: #### I NSULIN #### [facility] [address] [place] [address] Dr. Brandon Hodges ESTRADIOLon 04-20-2022 Estradiol 25.1 pg/mL Normal [facility] Comment on above: Result Comment: Adul t Female: Follicular phase 12.5 - 166.0 Ovulation phase 85.8 - 498.0 Luteal phase 43.8 - 211.0 Postmenopausal <6.0 - 54.7 1st trimester 215.0 - >4300.0 Jason ECLIA methodology Performed By: #### B VITA #### [facility] [address] [place] [address] Dr. Brandon Hodges INSULINon 04-20-2022 Insulin 30.0 uIU/mL Critically high 2.6-24.9 [facility] Comment on above: Performed By: #### I NSULIN #### [facility] [address] [place] [address] Dr. Brandon Hodges PROGESTERONEon 04-20-2022 Progesterone <0.1 Normal [facility] Comment on above: Result Comment: Foll icular phase 0.1 - 0.9 Luteal phase 1.8 - 23.9 Ovulation phase 0.1 - 12.0 First trimester 11.0 - 44.3 Second trimester 25.4 - 83.3 Third trimester 58.7 - 214.0 Postmenopausal 0.0 - 0.1 Performed By: #### B MP #### [facility] [address] [address] [address] Brandon Hodges SEX HORMONE-BINDING GLOBULIN on 04-20-2022 Sex Horm Binding Glob, Serum 30.3 nmol/L Normal 24.6-122.0 [facility] Comment on above: Performed By: #### B MP #### [facility] [address] [address] [address] Brandon Hodges FERRITINon 04-19-2022 Ferritin [Mass/Vol] 53.0 ng/mL Normal 6.2-137.0 [facility] Comment on above: Performed By: #### B MP #### [facility] [address] [place] [address] Dr. Brandon Hodges FREE T3on 04-19-2022 FREE T3 2.34 pg/mlL Normal 2.18-3.98 [facility] Comment on above: Performed By: #### T SH, T4, FT3, BMP, LIPID, LIVER #### [facility] [address] [place] [address] Dr. Brandon Hodges FREE T4on 04-19-2022 Free T4 [Mass/Vol] 0.92 ng/dL Normal 0.76-1.46 [facility] Comment on above: Performed By: #### B MP #### [facility] [address] [place] [address] Dr. Brandon Hodges GLYCOHEMOGLOBIN A1Con 2022 ADA RECOMMENDATION SEE BELOW Normal [facility] Comment on above: Result Comment: ADA RECOMMENDED LIMIT 4.0 - 6.0 ADA THERAPEUTIC TARGET < 7.0 ACTION SUGGESTED > 7.0 Performed By: #### A 1C #### [facility] [address] [place] [address] Dr. Brandon Hodges Glucose [Mass/Vol] 105 mg/dL Normal [facility] Comment on above: Performed By: #### A 1C #### [facility] [address] [place] [address] Dr. Brandon Hodges HbA1c (Bld) [Mass fraction] 5.3 % Normal 4.5-6.2 [facility] Comment on above: Performed By: #### A 1C #### [facility] [address] [address] [address] Brandon Hodges LIPID PROFILEon 04-19-2022 CHOL-HDL RATIO NORM SEE BELOW Normal [facility] Comment on above: Result Comment: 3.3 - 4.4 LOW RISK 4.4 - 7.1 AVERAGE RISK 7.1 - 11.0 MODERATE RISK >11.0 HIGH RISK Performed By: #### T SH, T4, FT3, BMP, LIPID, LIVER #### [facility] [address] [address] [address] Brandon Hodges Cholesterol [Mass/Vol] 258 mg/dL Critically high <=200 [facility] Comment on above: Performed By: #### T SH, T4, FT3, BMP, LIPID, LIVER #### [facility] [address] [address] [address] Brandon Hodges Cholesterol in HDL [Mass/Vol] 47 mg/dL Normal 40-60 [facility] Comment on above: Performed By: #### T SH, T4, FT3, BMP, LIPID, LIVER #### [facility] [address] [address] [address] Brandon Hodges Cholesterol in LDL [Mass/Vol] 199.0 mg/dL Normal [facility] Comment on above: Performed By: #### T SH, T4, FT3, BMP, LIPID, LIVER #### [facility] [address] [address] [address] Brandon Hodges Cholesterol.total/Chol esterol in HDL [Mass ratio] 5.5 {ratio} Normal [facility] Comment on above: Performed By: #### T SH, T4, FT3, BMP, LIPID, LIVER #### [facility] [address] [address] [address] Brandon Hodges HDL NORMAL > or = 60 mg/dl - LOW CARDIOVASCULAR RISK <40 mg/dl - HIGH CARDIOVASCULAR RISK Normal [facility] Comment on above: Performed By: #### T SH, T4, FT3, BMP, LIPID, LIVER #### [facility] [address] [place] [address] Dr. Brandon Hodges LDL CALC NORMAL SEE BELOW Normal [facility] Comment on above: Result Comment: <100 mg/dl OPTIMAL 100 - 129 mg/dl NEAR OR ABOVE OPTIMAL 130 - 159 mg/dl BORDERLINE HIGH 160 - 189 mg/dl HIGH >190 mg/dl VERY HIGH Performed By: #### T SH, T4, FT3, BMP, LIPID, LIVER #### [facility] [address] [place] [address] Dr. Brandon Hodges Triglyceride [Mass/Vol] 60 mg/dL Normal <=150 [facility] Comment on above: Performed By: #### T SH, T4, FT3, BMP, LIPID, LIVER #### [facility] [address] [place] [address] Dr. Brandon Hodges VLDL CALC 12.0 mg/dL Normal [facility] Comment on above: Performed By: #### T SH, T4, FT3, BMP, LIPID, LIVER #### [facility] [address] [place] [address] Dr. Brandon Hodges LIVER PROFILEon 04-19-2022 Albumin [Mass/Vol] 4.3 g/dL Normal 3.4-5.0 [facility] Comment on above: Performed By: #### T SH, T4, FT3, BMP, LIPID, LIVER #### [facility] [address] [place] [address] Dr. Brandon Hodges Albumin/Globulin [Mass ratio] 1.3 {ratio} Normal [facility] Comment on above: Performed By: #### T SH, T4, FT3, BMP, LIPID, LIVER #### [facility] [address] [place] [address] Dr. Brandon Hodges ALP [Catalytic activity/Vol] 86 U/L Normal 46-116 [facility] Comment on above: Performed By: #### T SH, T4, FT3, BMP, LIPID, LIVER #### [facility] [address] [place] [address] Dr. Brandon Hodges ALT [Catalytic activity/Vol] 31 U/L Normal 14-59 [facility] Comment on above: Performed By: #### T SH, T4, FT3, BMP, LIPID, LIVER #### [facility] [address] [place] [address] Dr. Brandon Hodges AST [Catalytic activity/Vol] 18 U/L Normal 15-37 [facility] Comment on above: Performed By: #### T SH, T4, FT3, BMP, LIPID, LIVER #### [facility] [address] [place] [address] Dr. Brandon Hodges BILI, CONJUGATED <0.1 Normal 0.0-0.2 [facility] Comment on above: Performed By: #### T SH, T4, FT3, BMP, LIPID, LIVER #### [facility] [address] [place] [address] Dr. Brandon Hodges Bilirubin [Mass/Vol] 0.3 mg/dL Normal 0.2-1.0 [facility] Comment on above: Performed By: #### T SH, T4, FT3, BMP, LIPID, LIVER #### [facility] [address] [place] [address] Dr. Brandon Hodges Globulin (S) [Mass/Vol] 3.4 g/dL Normal [facility] Comment on above: Performed By: #### T SH, T4, FT3, BMP, LIPID, LIVER #### [facility] [address] [place] [address] Dr. Brandon Hodges Protein [Mass/Vol] 7.7 g/dL Normal 6.4-8.2 [facility] Comment on above: Performed By: #### T SH, T4, FT3, BMP, LIPID, LIVER #### [facility] [address] [place] [address] Dr. Brandon Hodges PROF CHEM 8 (BAS METB)on Anion gap [Moles/Vol] 14.5 mmol/L Normal [facility] Comment on above: Performed By: #### T SH, T4, FT3, BMP, LIPID, LIVER #### [facility] [address] [place] [address] Dr. Brandon Hogdes Calcium [Mass/Vol] 9.6 mg/dL Normal 8.5-10.1 [facility] Comment on above: Performed By: #### T SH, T4, FT3, BMP, LIPID, LIVER #### [facility] [address] [address] [address] Brandon Hodges Chloride [Moles/Vol] 108 mmol/L Critically high 98-107 [facility] Comment on above: Performed By: #### T SH, T4, FT3, BMP, LIPID, LIVER #### [facility] [address] [address] [address] Brandon Hodges CO2 [Moles/Vol] 26.1 mmol/L Normal 21.0-32.0 [facility] Comment on above: Performed By: #### T SH, T4, FT3, BMP, LIPID, LIVER #### [facility] [address] [place] [address] Dr. Brandon Hodges Creatinine [Mass/Vol] 0.75 mg/dL Normal 0.55-1.02 [facility] Comment on above: Performed By: #### T SH, T4, FT3, BMP, LIPID, LIVER #### [facility] [address] [place] [address] Dr. Brandon Hodges EGFR-AF TURKISH >60 Normal >=60 [facility] Comment on above: Performed By: #### T SH, T4, FT3, BMP, LIPID, LIVER #### [facility] [address] [place] [address] Dr. Brandon Hodges EGFR-NON AF TURKISH >60 Normal >=60 [facility] Comment on above: Performed By: #### T SH, T4, FT3, BMP, LIPID, LIVER #### [facility] [address] [place] [address] Dr. Brandon Hodges Glucose [Mass/Vol] 122 mg/dL Critically high 74-106 [facility] Comment on above: Performed By: #### T SH, T4, FT3, BMP, LIPID, LIVER #### [facility] [address] [place] [address] Dr. Brandon Hodges Potassium [Moles/Vol] 4.6 mmol/L Normal 3.5-5.1 [facility] Comment on above: Performed By: #### T SH, T4, FT3, BMP, LIPID, LIVER #### [facility] [address] [address] [address] Brandon Hodges Sodium [Moles/Vol] 144 mmol/L Normal 136-145 [facility] Comment on above: Performed By: #### T SH, T4, FT3, BMP, LIPID, LIVER #### [facility] [address] [place] [address] Dr. Brandon Hodges Urea nitrogen [Mass/Vol] 13.0 mg/dL Normal 7.0-18.0 [facility] Comment on above: Performed By: #### T SH, T4, FT3, BMP, LIPID, LIVER #### [facility] [address] [place] [address] Dr. Brandon Hodges Urea nitrogen/Creatinine [Mass ratio] 17.3 mg/mg Normal [facility] Comment on above: Performed By: #### T SH, T4, FT3, BMP, LIPID, LIVER #### [facility] [address] [place] [address] Dr. Brandon Hodges T4on 04-19-2022 T4 [Mass/Vol] 9.00 ug/dL Normal 4.80-13.90 [facility] Comment on above: Performed By: #### T SH, T4, FT3, BMP, LIPID, LIVER #### [facility] [address] [place] [address] Dr. Brandon Hodges TSHon 04-19-2022 TSH 0.335 uIU/mL Critically low 0.358-3.740 [facility] Comment on above: Performed By: #### T SH, T4, FT3, BMP, LIPID, LIVER #### [facility] [address] [place] [address] Dr. Brandon Hodges VITAMIN D 25 OHon 04-19-2022 VIT D 25-OH 29.4 ng/mL Normal [facility] Comment on above: Performed By: #### B MP #### [facility] [address] [place] [address] Dr. Brandon Hodges VIT D RANGES SEE BELOW Normal [facility] Comment on above: Result Comment: <20 ng/mL Vit D deficient 20 - <30 ng/mL Vit D insufficient 30 - 100 ng/mL Vit D sufficient >100 ng/mL Potential Toxicity Performed By: #### B #### [facility] [address] [address] [address] Brandon Hodges MG MAMM SCREEN 3D KRISTI CADon 01-11-2022 MG MAMM SCREEN 3D KRISTI CAD Patient: AUDREY ISAACS Exam Date: 01/11/2022 : 1975 Gender:F Ordering : VANCE YESICA NICKERSON [employer] Admission #: [id number] Family : Order #: [id number] CLICK HERE TO VIEW EXAM RADIOLOGY REPORT [...] leukemia cancer at age 72. LOCATION: [facility] BREAST COMPOSITION: Heterogeneously dense,which may obscure small [...] Hollingsworth M.D. on 01/15/2022 at 12:03 Normal [facility] CHEMISTRYOrdered By: SYSTEM SYSTEM on 08-17-2021 Anion [...] rate/Area] mL/min/1.73 m2 Normal >=59mL/min/1 .73 m2 [facility] Chem S Glucose [Mass/Vol] 96 mg/dL Normal [...] by Colt Silvestre on 08/01/2021 1109 Normal [facility] THYROGLOBULINon 06-24-2021 Thyroglobulin 3.9 ng/mL Normal [facility] Comment on above: Result Comment: [...] ng/mL. Performed By: #### B MP #### [facility] [address] [place] [address] Dr. Brandon Hodges RENITA by IFAon 06-18-2021 Antinuclear Antibodies, IFA Negative Normal [facility] Comment on above: Result Comment: Nega tive <1:80 Borderline 1:80 Positive >1:80 ICAP nomenclature: AC-0 For more information about Hep-2 cell patterns use ANApatterns.org, the official website for the International Consensus on Antinuclear Antibody (RENITA) Patterns (ICAP). Performed By: #### I NSULIN #### [facility] [address] [place] [address] Dr. Brandon Hodges ANTISTREPTOLYSIN O AB (ASO)o n 06-16-2021 Antistreptolysin O Ab 108.1 IU/mL Normal 0.0-200.0 [facility] Comment on above: Performed By: #### I NSULIN #### [facility] [address] [place] [address] Dr. Brandon Hodges RHEUMATOID FACTORon 06-17-19 RA Latex Turbid. 11.1 IU/mL Normal <14.0 [facility] Comment on above: Performed By: #### I NSULIN #### [facility] [address] [place] [address] Dr. Brandon Hodges CBC AUTO DIFFon 06-15-2021 BASO # 0.0 103/ul Normal 0.0-0.1 [facility] Comment on above: Performed By: #### I NSULIN #### [facility] [address] [place] [address] Dr. Brandon Hodges Basophils/100 WBC (Bld) 0.4 % Normal 0.2-2.0 [facility] Comment on above: Performed By: #### I NSULIN #### [facility] [address] [place] [address] Dr. Brandon Hodges EO # 0.0 103/ul Normal 0.0-0.7 [facility] Comment on above: Performed By: #### I NSULIN #### [facility] [address] [place] [address] Dr. Brandon Hodges Eosinophils/100 WBC (Bld) 0.7 % Critically low 0.9-7.0 [facility] Comment on above: Performed By: #### I NSULIN #### [facility] [address] [place] [address] Dr. Brandon Hodges Erythrocyte distribution width (RBC) [Ratio] 12.8 % Normal 11.0-15.0 [facility] Comment on above: Performed By: #### I NSULIN #### [facility] [address] [place] [address] Dr. Brandon Hodges Hematocrit (Bld) [Volume fraction] 43.3 % Normal 36.0-48.0 [facility] Comment on above: Performed By: #### I NSULIN #### [facility] [address] [place] [address] Dr. Brandon Hodges Hemoglobin (Bld) [Mass/Vol] 14.1 g/dL Normal 12.0-16.0 [facility] Comment on above: Performed By: #### I NSULIN #### [facility] [address] [place] [address] Dr. Brandon Hodges IG # 0.00 10e3/ul Normal 0.00-0.03 [facility] Comment on above: Performed By: #### I NSULIN #### [facility] [address] [place] [address] Dr. Brandon Hodges IG % 0.0 % Normal 0.0-0.5 [facility] Comment on above: Performed By: #### I NSULIN #### [facility] [address] [place] [address] Dr. Brandon Hodges LYMPH # 1.6 103/ul Normal 1.2-3.8 [facility] Comment on above: Performed By: #### I NSULIN #### [facility] [address] [place] [address] Dr. Brandon Hodges Lymphocytes/100 WBC (Bld) 35.1 % Normal 20.5-60.0 [facility] Comment on above: Performed By: #### I NSULIN #### [facility] [address] [place] [address] Dr. Brandon Hodges MANUAL DIFF REQ NO Normal [facility] Comment on above: Performed By: #### I NSULIN #### [facility] [address] [place] [address] Dr. Brandon Hodges MCH (RBC) [Entitic mass] 29.4 pg Normal 26.7-34.0 [facility] Comment on above: Performed By: #### I NSULIN #### [facility] [address] [place] [address] Dr. Brandon Hodges MCHC (RBC) [Mass/Vol] 32.6 g/dL Normal 29.9-35.2 [facility] Comment on above: Performed By: #### I NSULIN #### [facility] [address] [place] [address] Dr. Brandon Hodges MCV (RBC) [Entitic vol] 90.2 fL Normal 81.0-99.0 [facility] Comment on above: Performed By: #### I NSULIN #### [facility] [address] [place] [address] Dr. Brandon Hodges MONO # 0.3 103/ul Normal 0.3-0.8 [facility] Comment on above: Performed By: #### I NSULIN #### [facility] [address] [place] [address] Dr. Brandon Hodges Monocytes/100 WBC (Bld) 6.8 % Normal 1.7-12.0 [facility] Comment on above: Performed By: #### I NSULIN #### [facility] [address] [place] [address] Dr. Brandon Hodges NEUT # 2.6 103/ul Normal 1.4-6.5 [facility] Comment on above: Performed By: #### I NSULIN #### [facility] [address] [place] [address] Dr. Brandon Hodges Neutrophils/100 WBC (Bld) 57.0 % Normal 43.0-75.0 [facility] Comment on above: Performed By: #### I NSULIN #### [facility] [address] [place] [address] Dr. Brandon Hodges Platelet mean volume (Bld) [Entitic vol] 10.8 fL Normal 9.5-13.5 [facility] Comment on above: Performed By: #### I NSULIN #### [facility] [address] [place] [address] Dr. Brandon Hodges PLT 220 103/ul Normal 150-450 [facility] Comment on above: Performed By: #### I NSULIN #### [facility] [address] [place] [address] Dr. Brandon Hodges RBC 4.80 106/ul Normal 4.20-5.40 [facility] Comment on above: Performed By: #### I NSULIN #### [facility] [address] [place] [address] Dr. Brandon Hodges WBC 4.6 103/ul Normal 4.0-11.0 [facility] Comment on above: Performed By: #### I NSULIN #### [facility] [address] [place] [address] Dr. Brandon Hodges CRPon 06-15-2021 CRP [Mass/Vol] mg/L Normal <=1.0 [facility] Comment on above: Performed By: #### T SH, T4, FT3, BMP, LIPID, LIVER #### [facility] [address] [place] [address] Dr. Brandon Hodges FREE T4on 06-15-2021 Free T4 [Mass/Vol] 0.86 ng/dL Normal 0.76-1.46 [facility] Comment on above: Performed By: #### I NSULIN #### [facility] [address] [place] [address] Dr. Brandon Hodges LIPID PROFILEon 06-15-2021 CHOL-HDL RATIO NORM SEE BELOW Normal [facility] Comment on above: Result Comment: 3.3 - 4.4 LOW RISK 4.4 - 7.1 AVERAGE RISK 7.1 - 11.0 MODERATE RISK >11.0 HIGH RISK Performed By: #### T SH, T4, FT3, BMP, LIPID, LIVER #### [facility] [address] [place] [address] Dr. Brandon Hodges Cholesterol [Mass/Vol] 211 mg/dL Critically high <=200 [facility] Comment on above: Performed By: #### T SH, T4, FT3, BMP, LIPID, LIVER #### [facility] [address] [place] [address] Dr. Brandon Hodges Cholesterol in HDL [Mass/Vol] 37 mg/dL Critically low 40-60 [facility] Comment on above: Performed By: #### T SH, T4, FT3, BMP, LIPID, LIVER #### [facility] [address] [place] [address] Dr. Brandon Hodges Cholesterol in LDL [Mass/Vol] 151.4 mg/dL Normal [facility] Comment on above: Performed By: #### T SH, T4, FT3, BMP, LIPID, LIVER #### [facility] [address] [place] [address] Dr. Brandon Hodges Cholesterol.total/Chol esterol in HDL [Mass ratio] 5.7 {ratio} Normal [facility] Comment on above: Performed By: #### T SH, T4, FT3, BMP, LIPID, LIVER #### [facility] [address] [place] [address] Dr. Brandon Hodges HDL NORMAL > or = 60 mg/dl - LOW CARDIOVASCULAR RISK <40 mg/dl - HIGH CARDIOVASCULAR RISK Normal [facility] Comment on above: Performed By: #### T SH, T4, FT3, BMP, LIPID, LIVER #### [facility] [address] [place] [address] Dr. Brandon Hodges LDL CALC NORMAL SEE BELOW Normal [facility] Comment on above: Result Comment: <100 mg/dl OPTIMAL 100 - 129 mg/dl NEAR OR ABOVE OPTIMAL 130 - 159 mg/dl BORDERLINE HIGH 160 - 189 mg/dl HIGH >190 mg/dl VERY HIGH Performed By: #### T SH, T4, FT3, BMP, LIPID, LIVER #### [facility] [address] [place] [address] Dr. Brandon Hodges Triglyceride [Mass/Vol] 113 mg/dL Normal <=150 [facility] Comment on above: Performed By: #### T SH, T4, FT3, BMP, LIPID, LIVER #### [facility] [address] [place] [address] Dr. Brandon Hodges VLDL CALC 22.6 mg/dL Normal [facility] Comment on above: Performed By: #### T SH, T4, FT3, BMP, LIPID, LIVER #### [facility] [address] [place] [address] Dr. Brandon Hodges PROF 14(COMP METB)on 022 Albumin [Mass/Vol] 3.8 g/dL Normal 3.4-5.0 [facility] Comment on above: Performed By: #### T SH, T4, FT3, BMP, LIPID, LIVER #### [facility] [address] [place] [address] Dr. Brandon Hodges Albumin/Globulin [Mass ratio] 1.2 {ratio} Normal [facility] Comment on above: Performed By: #### T SH, T4, FT3, BMP, LIPID, LIVER #### [facility] [address] [place] [address] Dr. Brandon Hodges ALP [Catalytic activity/Vol] 75 U/L Normal 46-116 [facility] Comment on above: Performed By: #### T SH, T4, FT3, BMP, LIPID, LIVER #### [facility] [address] [place] [address] Dr. Brandon Hodges ALT [Catalytic activity/Vol] 26 U/L Normal 14-59 [facility] Comment on above: Performed By: #### T SH, T4, FT3, BMP, LIPID, LIVER #### [facility] [address] [place] [address] Dr. Brandon Hodges Anion gap [Moles/Vol] 10.2 mmol/L Normal [facility] Comment on above: Performed By: #### T SH, T4, FT3, BMP, LIPID, LIVER #### [facility] [address] [place] [address] Dr. Brandon Hodges AST [Catalytic activity/Vol] 10 U/L Critically low 15-37 [facility] Comment on above: Performed By: #### T SH, T4, FT3, BMP, LIPID, LIVER #### [facility] [address] [address] [address] Brandon Hodges Bilirubin [Mass/Vol] 0.4 mg/dL Normal 0.2-1.0 [facility] Comment on above: Performed By: #### T SH, T4, FT3, BMP, LIPID, LIVER #### [facility] [address] [address] [address] Brandon Hodges Calcium [Mass/Vol] 8.3 mg/dL Critically low 8.5-10.1 [facility] Comment on above: Performed By: #### T SH, T4, FT3, BMP, LIPID, LIVER #### [facility] [address] [place] [address] Dr. Brandon Hodges Chloride [Moles/Vol] 103 mmol/L Normal 98-107 [facility] Comment on above: Performed By: #### T SH, T4, FT3, BMP, LIPID, LIVER #### [facility] [address] [place] [address] Dr. Brandon Hodges CO2 [Moles/Vol] 28.8 mmol/L Normal 21.0-32.0 [facility] Comment on above: Performed By: #### T SH, T4, FT3, BMP, LIPID, LIVER #### [facility] [address] [place] [address] Dr. Brandon Hodges Creatinine [Mass/Vol] 0.81 mg/dL Normal 0.55-1.02 [facility] Comment on above: Performed By: #### T SH, T4, FT3, BMP, LIPID, LIVER #### [facility] [address] [place] [address] Dr. Brandon Hodges EGFR-AF TURKISH >60 Normal >=60 [facility] Comment on above: Performed By: #### T SH, T4, FT3, BMP, LIPID, LIVER #### [facility] [address] [place] [address] Dr. Brandon Hodges EGFR-NON AF TURKISH >60 Normal >=60 [facility] Comment on above: Performed By: #### T SH, T4, FT3, BMP, LIPID, LIVER #### [facility] [address] [place] [address] Dr. Brandon Hodges Globulin (S) [Mass/Vol] 3.1 g/dL Normal [facility] Comment on above: Performed By: #### T SH, T4, FT3, BMP, LIPID, LIVER #### [facility] [address] [place] [address] Dr. Brandon Hodges Glucose [Mass/Vol] 95 mg/dL Normal 74-106 [facility] Comment on above: Performed By: #### T SH, T4, FT3, BMP, LIPID, LIVER #### [facility] [address] [place] [address] Dr. Brandon Hodges Potassium [Moles/Vol] 3.9 mmol/L Normal 3.5-5.1 [facility] Comment on above: Performed By: #### T SH, T4, FT3, BMP, LIPID, LIVER #### [facility] [address] [place] [address] Dr. Brandon Hodges Protein [Mass/Vol] 6.9 g/dL Normal 6.1-8.2 [facility] Comment on above: Performed By: #### T SH, T4, FT3, BMP, LIPID, LIVER #### [facility] [address] [place] [address] Dr. Brandon Hodges Sodium [Moles/Vol] 138 mmol/L Normal 136-145 [facility] Comment on above: Performed By: #### T SH, T4, FT3, BMP, LIPID, LIVER #### [facility] [address] [place] [address] Dr. Brandon Hodges Urea nitrogen [Mass/Vol] 20.0 mg/dL Critically high 7.0-18.0 [facility] Comment on above: Performed By: #### T SH, T4, FT3, BMP, LIPID, LIVER #### [facility] [address] [place] [address] Dr. Brandon Hodges Urea nitrogen/Creatinine [Mass ratio] 24.7 mg/mg Normal [facility] Comment on above: Performed By: #### T SH, T4, FT3, BMP, LIPID, LIVER #### [facility] [address] [place] [address] Dr. Brandon Hodges [facility] SED RATE <1 Normal <=20 [facility] Comment on above: Performed By: #### B MP #### [facility] [address] [place] [address] Dr. Brandon Hodges TSHon 06-15-2021 TSH 1.006 uIU/mL Normal 0.470-4.680 [facility] Comment on above: Performed By: #### T SH, T4, FT3, BMP, LIPID, LIVER #### [facility] [address] [place] [address] Dr. Brandon Hodges TSH RANGE SEE BELOW Normal [facility] Comment on above: Result Comment: <0.3 4 UIU/ml HYPERTHYROID 0.34-5.60 UIU/ml EUTHYROID >5.60 UIU/ml HYPOTHYROID Performed By: #### T SH, T4, FT3, BMP, LIPID, LIVER #### [facility] [address] [place] [address] Dr. Brandon Hodges URIC ACID SERUMon 06-15-2021 Urate [Mass/Vol] 4.2 mg/dL Normal 2.5-6.2 [facility] Comment on above: Performed By: #### T SH, T4, FT3, BMP, LIPID, LIVER #### [facility] [address] [place] [address] Dr. Brandon Hodges VITAMIN D 25 OHon 06-15-2021 VIT D 25-OH 47.6 ng/mL Normal [facility] Comment on above: Performed By: #### B MP #### [facility] [address] [place] [address] Dr. Brandon Hodges VIT D RANGES SEE BELOW Normal [facility] Comment on above: Result Comment: <20 ng/mL Vit D deficient 20 - <30 ng/mL Vit D insufficient 30 - 100 ng/mL Vit D sufficient >100 ng/mL Potential Toxicity Performed By: #### B MP #### [facility] [address] [place] [address] Dr. Brandon Hodges XR KNEE KRISTI 3 [...] by: DOUGLAS SOLANO Date: 2021-06-14 13:35 Normal [facility] Vital Signs Date Time Vital Sign Value Performing Clinician Debra tolentino 12-04-2023 09:33-0400 Body height 177.8 cm Yesica Osoriosirena DECORATION CHECKER Work Phone: [facility] 12-04-2023 09:33-0400 Body mass index (BMI) [Ratio] 33.23 kg/m2 Yesica Krishan DECORATION CHECKER Work Phone: [facility] 12-04-2023 09:33-0400 Body temperature 98.8 [degF] Yesica Krishan DECORATION CHECKER Work Phone: [facility] 12-04-2023 09:33-0400 Body weight 105.05 kg Yesica Pastranastephmax DECORATION CHECKER Work Phone: [facility] 12-04-2023 09:33-0400 Diastolic blood pressure 82 mm[Hg] Yesica Krishan DECORATION CHECKER Work Phone: [facility] 12-04-2023 09:33-0400 Heart rate 70 /min Yesica Pastranaulisses DECORATION CHECKER Work Phone: [facility] 12-04-2023 09:33-0400 Respiratory rate 18 /min Yesica Krishan DECORATION CHECKER Work Phone: [facility] 12-04-2023 09:33-0400 SaO2% (BldA) [Mass fraction] 99 % Yesica Krishan DECORATION CHECKER Work Phone: [facility] 12-04-2023 09:33-0400 Systolic blood pressure 132 mm[Hg] Yesica Nickerson NP Work Phone: [facility] 09-23-2023 13:00-0400 Diastolic blood pressure 85 mm[Hg] Boby Cevallos [facility] 09-23-2023 13:00-0400 Heart rate 69 /min Boby Mart [facility] 09-23-2023 13:00-0400 Mean blood pressure 99 mm[Hg] Boby Mart [facility] 09-23-2023 13:00-0400 Respiratory rate 16 /min Boby Mart [facility] 09-23-2023 13:00-0400 SaO2% (BldA) [Mass fraction] 98 % Boby Mart [facility] 09-23-2023 13:00-0400 Systolic blood pressure 127 mm[Hg] Boby Mart [facility] 09-23-2023 12:00-0400 Diastolic blood pressure 82 mm[Hg] Boby Ballesterose [facility] 09-23-2023 12:00-0400 Heart rate 68 /min Boby Ballesterose [facility] 09-23-2023 12:00-0400 Mean blood pressure 94 mm[Hg] Boby Mart [facility] 09-23-2023 12:00-0400 SaO2% (BldA) [Mass fraction] 96 % Boby Mart [facility] 09-23-2023 12:00-0400 Systolic blood pressure 119 mm[Hg] Boby Mart [facility] 09-23-2023 11:05-0400 gluc 89 mg/dL Boby Mart [facility] 09-23-2023 11:05-0400 gluc Boby Cevallos [facility] 09-23-2023 10:59-0400 Body temperature 98.6 [degF] Boby Cevallos [facility] 09-23-2023 10:59-0400 Diastolic blood pressure 96 mm[Hg] Boby Cevallos [facility] 09-23-2023 10:59-0400 Heart rate 84 /min Boby Cevallos [facility] 09-23-2023 10:59-0400 Respiratory rate 18 /min Boby Cevallos [facility] 09-23-2023 10:59-0400 SaO2% (BldA) [Mass fraction] 99 % Boby Cevallos [facility] 09-23-2023 10:59-0400 Systolic blood pressure 140 mm[Hg] Boby Cevallos [facility] 01-20-2023 17:00-0500 Body height 176.53 cm Tika Shanna Other [facility] 01-20-2023 17:00-0500 Body mass index (BMI) [Ratio] 33.85 kg/m2 Tika Shanna Other [facility] 01-20-2023 17:00-0500 Body temperature 98 [degF] Tika Shanna Other [facility] Other 01-20-2023 17:00-0500 Body weight 105.51 kg Tika Shanna Other [facility] Other 01-20-2023 17:00-0500 Respiratory rate 18 /min Tika Otero Other [facility] Other 01-20-2023 17:00-0500 SaO2% (BldA) [Mass fraction] 99 % Tika Shanna Other [facility] Other 06-11-2022 15:50-0400 Body height 176.53 cm Elise Stone Other [facility] Other 06-11-2022 15:50-0400 Body mass index (BMI) [Ratio] 36.39 kg/m2 Elise Stone Other [facility] Other 06-11-2022 15:50-0400 Body temperature 97.3 [degF] Elise Stone Other [facility] Other 06-11-2022 15:50-0400 Body weight 113.4 kg Elise Stone Other [facility] Other 06-11-2022 15:50-0400 Respiratory rate 18 /min Elise Stone Other [facility] Other 06-11-2022 15:50-0400 SaO2% (BldA) [Mass fraction] 99 % Elise Stone Other [facility] Other 02-28-2022 15:11-0500 Blood Pressure Location Juancarlos Adamschristie [facility] 02-28-2022 15:11-0500 Diastolic blood pressure 80 mm[Hg] Juancarlos Giraldo [facility] 02-28-2022 15:11-0500 Heart rate 84 /min Juancarlos Giraldo [facility] 02-28-2022 15:11-0500 Respiratory rate 18 [...] 11-19-2021 15:13-0400 Respiratory rate 18 /min Juancarlos Flemingoffchristie [facility] 11-19-2021 15:13-0400 SaO2% (BldA) [Mass fraction] 96 % Juancarlos Giraldo [facility] 11-19-2021 15:13-0400 Systolic blood pressure 126 mm[Hg] Juancarlos Christofferson [facility] Encounters Encounter Date Encounter Type Care Provider Facility Start: 12-04-2023 End: 12-04-2023 Patient encounter procedure Yesica Nickerson Work Phone: [facility] [address] Work Phone: Start: 12-04-2023 End: 12-04-2023 ambulatory Yesica Nickerson Work Phone: [facility] Work Phone: Start: 12-04-2023 End: 12-04-2023 Bamboo flowsheet Yesica Nickerson DECORATION CHECKER Work Phone: [facility] Start: 12-04-2023 End: 12-04-2023 Bamboo flowsheet Yesica Aichholz DECORATION CHECKER Work Phone: [facility] Start: 12-04-2023 End: 12-04-2023 ambulatory YESICA AICHHOLZ Not Available Start: 12-04-2023 End: 12-04-2023 Office outpatient visit 15 minutes Yesica Aichholz DECORATION CHECKER Work Phone: [facility] Comment on [...] Available Start: 09-25-2023 End: 09-25-2023 ambulatory SUNNI Darby SYDI Not Available Start: 09-24-2023 End: 09-24-2023 ambulatory YESICA AICHHOLZ Not Available Start: 09-23-2023 End: 09-23-2023 Emergency department patient visit Boby Cevallos [facility] Start: 08-05-2023 End: 08-05-2023 ambulatory YESICA AICHHOLZ Not Available Start: 05-27-2023 End: 05-27-2023 ambulatory ZEESHAN BENSON Not Available Start: 04-29-2023 End: 04-29-2023 ambulatory YESICA AICHHOLZ Not Available Start: 01-20-2023 End: 01-20-2023 ambulatory Tika Otero Other [facility] Other Start: 01-20-2023 Office outpatient vi sit 15 minutes Tika Otero [facility] [place] Start: 06-28-2022 End: 06-28-2022 ambulatory Yesica Nickerson Work Phone: [facility] Work Phone: Start: 06-28-2022 End: 06-28-2022 Discharged Recurring Yesica Nickerson Work Phone: [facility] Work Phone: Start: 06-11-2022 End: 06-11-2022 ambulatory Elise Stone Other [facility] Other Start: 06-11-2022 Office outpatient ne w 30 minutes Elise Stone [facility] [place] Start: 05-18-2022 End: 05-19-2022 ambulatory VANCE NICKERSON Facility:[facility] Start: 04-19-2022 End: 04-20-2022 ambulatory VANCE NICKERSON Facility:[facility] Start: 02-28-2022 End: 02-28-2022 Patient [...] 06-14-2021 End: 06-15-2021 ambulatory VANCE NICKERSON Facility:[facility] Procedures Date Procedure Procedure Detail Performing Clinician Start: 05-12-2023 Mammography Yesica white DECORATION CHECKER Work Phone: Plan of Treatment Date Care Activity Detail Author Start: 05-11-2026 Screening for malign ant neoplasm of colon [facility] Start: 05-11-2024 Screening for malign ant neoplasm of breast Mammogram [facility] Start: 12-25-2023 End: 12-25-2023 Patient encounter procedure 12/25/2023 3:00 PM EST Procedure Visit [facility] [address] [place] [id number] Radhika Quispe MD [address] [place] [address] [facility] Start: 12-04-2023 Hemolytic complement CH50 level [facility] Start: 06-01-2005 Screening for malign ant neoplasm of cervix HPV/Cotest [facility] Start: 06-01-1996 Screening for malign ant neoplasm of cervix Pap Smear [facility] Start: 1975 Screening for malign ant neoplasm of colon [facility] Complement C3 [Mass/volume] in Serum or Plasma [facility] Complement C4 [Mass/volume] in Serum or Plasma [facility] Payers Date Payer Category Payer Self-pay [id number] 2021 Blue Cross Blue Shield BCBS [id number] 1975 Unknown [id number] [id number] .2.593 1975 Unknown [id number] 2.16.840.1.206085.3.579 .2.593 1975 Unknown [id number] 2.16.840.1.246938.3.579 .2.593 1975 Unknown [id number] 2.16.840.1.122409.3.579 .2.593 1975 Unknown [id number] 2.16.840.1.595111.3.579 .2.593 1975 Unknown [id number] 2.16.840.1.996075.3.579 .2.727 1975 Unknown [id number] 2.16.840.1.862664.3.579 .2.727 1975 Unknown [id number] 2.16.840.1.449012.3.579 .2.1259 1975 Unknown [id number] 2.16.840.1.257031.3.579 .2.1259 1975 Unknown [id number] 2.16.840.1.261547.3.579 .2.1259 1975 Unknown [id number] 2.16.840.1.753636.3.579 .2.1259 1975 Unknown [id number] 2.16.840.1.062605.3.579 .2.1259 1975 Unknown [id number] 2.16.840.1.684097.3.579 .2.1259 1975 Unknown [id number] 2.16.840.1.557252.3.579 .2.1259 1975 Unknown [id number] 2.16.840.1.497113.3.579 .2.1259 1975 Unknown [id number] 2.16.840.1.808993.3.579 .2.1259 1959 Unknown [id number] Private Health Insurance [facility] [id number] Unknown [id number] [id number] .2.531 Social History Date Type Detail Facility Tobacco smoking status No Smokin g Status Entered [facility] Start: 04-28-2023 End: 04-29-2023 Sex Assigned At Female [facility] Start: 02-28-2022 Tobacco smoking status Light t obacco smoker (finding) [facility] Start: 1975 Sex Assigned At Female [facility] Start: 10-16-2023 [facility] History of tobacco use Cigarette Smoker [facility] Start: 04-28-2023 End: 10-16-2023 Cigarettes smoked current (pack per day) - Reported 0.5 [facility] Start: 10-30-2023 End: 12-04-2023 Alcoholic beverage intake Ex-drinker (finding) [facility] Do you belong to any clubs or organizations such as moravian groups, unions, fraternal or athletic groups, or [...] To some extent [facility] (I/We) worried [facility] (my/our) food would run out before (I/we) got money to buy more. Never true [facility] Start: 04-19-2023 Alcohol Comment 2-4 times a month [facility] Start: 1975 Sex assigned at Not on file [facility] Start: 04-09-2018 Tobacco smoking stat us [facility] Smoker (finding) [facility] Functional Status Date Assessment Result Facility 09-23-2023 Functional Status N/A [facility] 02-28-2022 Functional Status No [facility] 11-19-2021 Functional Status N/A [facility] Clinical Notes 06-11-2022 to 12-04-2023 Yesica Nickerson NP - 12/04/2023 10:22 AM Kyra Nickerson NP - 12/04/2023 10:22 AM Kyra Nickerson NP - 12/04/2023 10:22 AM Kyra Nickerson NP - 12/04/2023 10:21 AM EDT Note Date & Type Note Facility 12-04-2023 History of Present illness Narrative Associated Problem(s): Tobacco user Vapes The patient has been advised of the risks of continued smoking: stroke, SD, all forms of cancer, lung disease, and [...] Medical History: Diagnosis Date Anxiety and depression (CMS/[facility]) 04/29/2023 Arthritis Bilateral chronic knee pain 04/29/2023 Bunion Dry eyes Dysmenorrhea Dyspareunia, female 04/29/2023 Fibromyalgia 04/29/2023 GERD without esophagitis Headache 06/17/2007 Low serum cortisol level 04/29/2023 Lymphedema of left arm Menopause ovarian failure 04/29/2023 Menorrhagia with irregular cycle Migraines ([facility]) 04/29/2023 BRITTANY (obstructive sleep apnea) 04/29/2023 Pelvic [...] of the risks of continued smoking: stroke, SD, all forms of cancer, lung disease, and [...] down from 40mg documented in this encounter [facility] 09-23-2023 Hospital Discharge instructions Patient Education 09/23/2023 [...] balance is good. 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 Take pmac-fom-elruhfd and prescription medicines only as told by [...] Document Reviewed: 01/08/2021 Elsevier Patient Education 2022 [employer]. Follow Up Care 09/23/2023 10:55:56 With:YESICA NICKERSON Address: [address] [place] [address] [phone] Business (1) When:09/26/2023 12:52:48 [facility] 09-23-2023 [...] is good. ? 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 ? Take ztsx-ewp-drwziml and prescription medicines only as told by [...] provider. Document Revised: 01/08/2021 Document Reviewed: 01/08/2021 [employer] Patient Education ? 2022 [employer] [facility] 01-20-2023 Evaluation note Encounter Date Diagnosis [...] no improvement in 2 to 3 days [facility] Other 04-25-2023 Evaluation note* Encounter Date Diagnosis [...] understanding and is agreeable with treatment plan. [facility] Other Evaluation + Plan note No data available for this section [facility] Future Appointments Appointment Date:02/28/2022 03:15:00 PM Scheduled Provider:Juancarlos Giraldo MD Location:.Cardiology Clinic Appointment Type:[facility] (FT) [facility] Work Phone: Evaluation note* Diagnosis Bilateral [...] esophagitis Esophageal reflux documented in this encounter [facility] HealthcareHistory general Narrative - Reported* Type Description Date Medical History Anxiety Medical History History of muscle spasm Medical History acid reflux Surgical History tonsillectomy Surgical History hernia Surgical History cholecystectomy Surgical History oophorectomy Surgical History Tummy Tuck Surgical History lymph node resection left axill vianney Surgical History hysterectomy 04/2019 Surgical History knee surgery 10/2021 Hospitalization History see above [facility] Other History general Narrative - Reported* Type Description Date Medical History Anxiety Medical History History of muscle spasm Medical History acid reflux Medical History high cholesterol Surgical History tonsillectomy Surgical History hernia Surgical History cholecystectomy Surgical History oophorectomy Surgical History Tummy Tuck Surgical History lymph node resection left axill vianney Surgical History hysterectomy 04/2019 Surgical History knee surgery 10/2021 Hospitalization History see above [facility] Other Hospital Discharge instructions No data available [...] section and content) DATE CREATED AUTHOR 08/02/2021 [facility] dical Specialist DATE CREATED AUTHOR AUTHOR'S ORGANIZ ATION 05/25/2022 [facility] DATE CREATED AUTHOR AUTHOR'S ORGANIZ ATION 09/25/2023 [facility] DATE CREATED AUTHOR AUTHOR'S ORGANIZ ATION 09/30/2023 [facility] DATE CREATED AUTHOR AUTHOR'S ORGANIZ ATION 12/06/2023 [facility] dical Specialists EPIC DATE CREATED AUTHOR AUTHOR'S ORGANIZ ATION 12/15/2023 [facility] ysician [facility] Care Team (unrecognized sect ion and content) Team Status: Active Member Role Status Dates Yesica Nickerson Primary Care Provider Active Team Status: Inactive Member Role Status Dates Gopal Potter MD Attending Provider Active Yesica Nickerson Primary Care Provider Active Risk Management Specialist Relationship Specialty Start Date End Date Brian Leblanc MD [address] [place] [address] PCP - General Family Medicine 04/14/23 Yesica Nickerson NP [address] [place] [address] PCP - [facility] 09/18/23 Risk Management Specialist Relationship Specialty Start Date End Date Brian Leblanc MD [address] [place] [address] PCP - General Family Medicine 04/14/23 Yesica Nickerson NP [address] [place] [address] PCP Briseida Rivera 09/18/23 Team Status: Inactive Member Role Status Dates Yesica Linda Nickerson Primary Care Provider Active Sta rt: December [...] BE BASED ON THE PRIMARY CLINICAL RECORDS. [facility] [email or web address] [facility]. provides no warranty or guarantee of the accuracy or completeness of information in this document.
--- NOTE | 2023-12-17 12:26 | W.VEIN ---
Discharge Plan Discharge Disposition: Home, Self-Care Outpatient Diagnostics: VC INJ Sclerosing SOLMULT Vein (Routine) Timeframe: 1 Month Facility: [facility] - Location: Vein Center Ordered By: Ben Hollingsworth Follow Up Appointments: 12/29/23 Plan of Treatment: sclerotherapy Print Language: Belarusian Discharge Date/Time: 12/17/23 12:26
== END 2023-12-17 12:26 | disposition home or self-care (01) ==
PROVIDERS: PCP Radiology Diagnostic Radiology; Visit Provider Radiology Diagnostic Radiology
DX: I80.01 Phlebitis and thrombophlebitis of superficial vessels of right lower extremity (principal)
CPT/HCPCS: 93971; G0463

== ENCOUNTER 2023-12-29 08:59 | Outpatient (OUT) | payer BC, SELFPAY ==
--- NOTE | 2023-12-29 07:32 | VEINCLINIC_ITS ---
Vital Signs 12/29/23 10:04 BP 118/68 BP Location Right Brachial BP Position Sitting BP Cuff Size Adult BP Source Automatic Cuff Respiration 16 Pulse 62 Pulse Source Monitor Pulse Oximetry (%) 99 Oxygen Delivery Method Room Air Varicose Veins Patient in today for sclerotherapy Gabe Zeng MD personally performed the services described in this documentation, as scribed by Abel Tineo RN in my presence and it is both accurate and complete. Abel Zeng RN, am scribing for, and in the presence of, Dr. Gabe Gutierrez and in the presence of the patient. thigh: bilateral, knee: bilateral, calf: bilateral, ankle: bilateral and simmons: bilateral aching, cramping, sharp and intermittent 8 1 year Worsened in recent months: Yes other (denies) other (daily anti-inflammatory) Reports muscle spasms of leg, limb pain and leg edema (pitting) History of lower extremity trauma: No Superficial thrombophlebitis: No Family history of varicose veins: yes (mother and father) Has patient had previous lower extremity venous surgery: No Patient has previously received the following treatment(s) for lower extremity varicose veins: Reports none Does patient have a history of : yes (grav 3 para 2) Does patient intend to have future pregnancies: no Has patient had lower extremity venous scan with relux testing: Yes Support hose used: Yes (6 months) Prescribed by provider: No Problems walking or doing physical activity: No Do you walk much: Yes Do you stand much: Yes Medication compliance: good Large amounts of Vitamin K: No Review of Systems ROS Narrative Gabe Zeng MD personally performed the services described in this documentation, as scribed by Abel Tineo RN in my presence and it is both accurate and complete. Abel Zeng RN, am scribing for, and in the presence of, Dr. Gabe Gutierrez and in the presence of the patient. Status of ROS 10 or more systems reviewed and unremark able except as noted in history and below Cardiovascular Reports: edema; Denies: swelling of feet/ankles Musculoskeletal Reports: extremity pain, extremity swelling, joint pain, joint swelling, muscle cramps and muscle weakness Integumentary/Breast Reports: skin pain, skin tenderness and skin swelling [facility] Medical History (Updated 11/27/23 @ 07:32 by Kelsi Sal RN) Phlebitis and thrombophlebitis of superficial vessels of right lower extremity ?I80.01 - Phlebitis and thrombophlebitis of superficial vessels of right lower extremity (ICD-10) Lymphoma of lymph nodes of axilla ?C85.94 - Non-Hodgkin lymphoma, unspecified, lymph nodes of axilla and upper limb (ICD-10) Hemorrhage following tonsillectomy and adenoidectomy ?J95.830 - Postprocedural hemorrhage of a respiratory system organ or structure following a respiratory system procedure (ICD-10) Encounter for cholecystectomy ?Z76.89 - Persons encountering health services in other specified circumstances (ICD-10) Lymphedema ?I89.0 - Lymphedema, not elsewhere classified (ICD-10) Migraines ?G43.909 - Migraine, unspecified, not intractable, without status migrainosus (ICD-10) Gastroesophageal reflux ?K21.9 - Gastro-esophageal reflux disease without esophagitis (ICD-10) Varicose veins of bilateral lower extremities with pain ?I83.813 - Varicose veins of bilateral lower extremities with pain (ICD-10) Hypertension ?I10 - Essential (primary) hypertension (ICD-10) Hypercholesteremia ?E78.00 - Pure hypercholesterolemia, unspecified (ICD-10) Endometriosis ?N80.9 - Endometriosis, unspecified (ICD-10) Surgical History (Updated 12/29/23 @ 10:05 by Abel Tineo) S/P sclerotherapy of varicose veins ?Z98.890 - Other specified postprocedural states (ICD-10) ?Z86.79 - Personal history of other diseases of the circulatory system (ICD- 10) S/P sclerotherapy of varicose veins ?Z98.890 - Other specified postprocedural states (ICD-10) ?Z86.79 - Personal history of other diseases of the circulatory system (ICD- 10) H/O hernia repair ?Z98.890 - Other specified postprocedural states (ICD-10) ?Z87.19 - Personal history of other diseases of the digestive system (ICD-10) H/O arthroscopy of knee ?Z98.890 - Other specified postprocedural states (ICD-10) H/O: hysterectomy ?Z90.710 - Acquired absence of both cervix and uterus (ICD-10) Family History (Updated 07/02/24 @ 10:03 by Kelsi Sal RN) Mother Family history of cancer Varicose veins of bilateral lower extremities with pain Grandmother Family history of diabetes mellitus Father Family history of hypertension Varicose veins of bilateral lower extremities with pain Son Family history of hypertension Grandfather Family history of stroke Social History (Updated 08/19/23 @ 08:47 by Kelsi Sal RN) Within the past year, how often did you have a drink containing alcohol: monthly or less Smoking status: Current every day smoker Do you use any of these nicotine containing products: vaping products Non-prescribed substance use: denies use Meds Home Medications and Allergies Home Medications ?Medication ?Instructions ?Recorded ?Confirmed ?Type alprazolam 0.25 mg tablet (Xanax) 0.25 mg PO PRN 08/19/23 08/19/23 History atorvastatin 10 mg tablet 10 mg PO QPM 08/19/23 08/19/23 History hormonal cream 08/19/23 History hydrochlorothiazide 12.5 mg tablet 25 mg PO DAILY 08/19/23 08/19/23 History meloxicam 15 mg tablet 15 mg PO DAILY 08/19/23 08/19/23 History omeprazole 20 mg capsule,delayed 20 mg PO DAILY 08/19/23 08/19/23 History release aspirin 325 mg capsule 325 mg PO DAILY 12/17/23 12/17/23 History Allergies Allergy/AdvReac Type Severity Reaction Status Date / Time rofecoxib (From Vioxx) Allergy Unknown Unknown Unverified 08/19/23 08:53 amoxicillin Allergy rash Unverified 08/19/23 08:53 iodine Allergy Rash Unverified 08/19/23 09:58 methylprednisolone Allergy itching Unverified 08/19/23 10:18 paroxetine (From Paxil) Allergy Unknown Unverified 08/19/23 08:53 sertraline (From Zoloft) Allergy Unknown Unverified 08/19/23 08:53 Exam Narrative Exam Narrative: IGabe MD personally performed the services described in this documentation, as scribed by Abel Tineo RN in my presence and it is both accurate and complete. IAbel RN, am scribing for, and in the presence of, Dr. Gabe Gutierrez and in the presence of the patient. Constitutional Vital Signs, click to edit/add: Last Vital Signs Pulse 53 L 08/19/23 08:58 Resp 16 08/19/23 08:58 BP 104/72 08/19/23 08:58 Pulse Ox 98 08/19/23 08:58 Documenting provider has reviewed patient's vital signs: yes Common normals: oriented x3 Nutritional appearance: overweight Lymph Lymphatic: no lymphedema noted Cardio Peripheral pulses: posterior tibial pulses present and dorsalis pedis pulses present Extremity General: calf tenderness, edema and other findings Right lower extremity: lower leg Right lower leg: inspection and palpation Left lower extremity: lower leg Left lower leg: inspection and palpation Neuro Common normals: oriented x3 Assessment and Plan Assessment and Plan (1) Varicose veins of bilateral lower extremities with pain: Plan additional sclerotherapy. Gabe Zeng MD personally performed the services described in this documentation, as scribed by Abel Tineo RN in my presence and it is both accurate and complete. Abel Zeng RN, am scribing for, and in the presence of, Dr. Gabe Gutierrez and in the presence of the patient. Procedures Procedure Instructions Procedures sclerotherapy: Risks and benefits of the procedure were discussed at length and informed written consent was obtained.? Time-out procedure was performed and the correct patient and procedure were confirmed.? Staff present during time-out: Abel iTneo RN and Gabe Gutierrez MD.? Patient prepped and procedure performed in usual sterile fashion. Injections performed by and Abel Tineo RN Sclerosing Agent:?? 4cc 0.5% Polidocanol Site Injected: right leg Number of Injections: 28 Anesthesia: Supercooled air The patient tolerated the procedure well without complication.? Hemostasis was obtained and thigh-high compression stocking was applied by patient.? Instructed patient to wear stocking for at least 96 hours and sleep with it and only remove for showering.? Will wear stocking for 2 weeks.? The patient verbalizes understanding and states they will comply.? Patient was given post-procedure instructions. Patient was discharged in good condition.? Scheduled to undergo additional injection sclerotherapy on 01/19/2024 Gabe Zeng MD personally performed the services described in this documentation, as scribed by Abel Tineo RN in my presence and it is both accurate and complete. Abel Zeng RN, am scribing for, and in the presence of, Dr. Gabe Gutierrez and in the presence of the patient.
--- NOTE | 2023-12-29 07:46 | W.VEIN ---
Discharge Plan Discharge Disposition: Home, Self-Care Outpatient Diagnostics: VC INJ Sclerosing SOLMULT Vein (Routine) Timeframe: 2 Weeks Facility: [facility] - Location: [facility] Ordered By: Gabe Gutierrez Follow Up Appointments: 01/19/2024 Print Language: Icelandic
--- NOTE | 2023-12-29 09:00 | VEIN_ITS ---
[address] [address] Patient Name: AUDREY MUÑOZ MRN: [id number] date: 1975 Sex: F Assigned Patient Location: Current Patient Location: Accession/Order Number: [id number] Exam Date: 12/29/2023 09:01 Report Date: 12/29/2023 10:17 At the request of: JONATHAN MAS Procedure: VC INJ Sclerosing SOLMULT Vein EXAMINATION: VC INJ Sclerosing SOLMULT Vein HISTORY: I83.813 - Varicose veins of bilateral lower extremities w... COMPARISON: No relevant comparison available. TECHNIQUE: The risks and benefits of the procedure were explained at length to the patient and informed written consent was obtained. Abel Tineo was present and assisted. The procedure was performed under sterile technique. The patient's leg was wrapped with Coban and postprocedural verbal and written instructions provided. SCLEROSANT: 4 cc, 0.5% polidocanol VEIN(S) INJECTED: 27 veins in the right leg VISUALIZATION: Ultrasound was not used to visualize the sclerosant ANESTHESIA: Supercooled air COMPLICATIONS: None VEIN/VC INJ Sclerosing SOLMULT Vein IMPRESSION: Technically successful sclerotherapy as described Electronically authenticated by: DOUGLAS SOLANO Date: 12/29/2023 10:17
--- OUTSIDE RECORDS SUMMARY | 2023-12-29 09:24 | XMS_ITS | CCD ---
Author Organization [facility] Care Team Providers Care Staff Rn Name Role Phone YESICA NICKERSON Primary Care Physician AICHSTEPHZ, MATTE CUTTER YESICA Primary Care Unavailable AICHHOLZ, MATTE CUTTER YESICA Admitting Unavailable DR DOUGLAS SOLANO V Consulting Unavailable AICHHOLZ, MATTE CUTTER YESICA Attending Unavailable AICHHOLZ, MATTE CUTTER YESICA Consulting Unavailable AICHHOLZ, MATTE CUTTER YESICA Attending Unavailable AICHHOLZ, MATTE CUTTER YESICA Consulting Unavailable AICHHOLZ, MATTE CUTTER YESICA Primary Care Unavailable AICHHOLZ, MATTE CUTTER YESICA Admitting Unavailable AICHHOLZ, MATTE CUTTER YESICA Attending Unavailable AICHHOLZ, MATTE CUTTER YESICA Consulting Unavailable AICHHOLZ, MATTE CUTTER YESICA Primary Care Unavailable AICHHOLZ, MATTE CUTTER YESICA Admitting Unavailable AICHHOLZ, MATTE CUTTER YESICA Attending Unavailable AICHHOLZ, MATTE CUTTER YESICA Consulting Unavailable AICHHOLZ, MATTE CUTTER YESICA Primary Care Unavailable AICHHOLZ, MATTE CUTTER YESICA Admitting Unavailable DR JONATHAN HOLLINGSWORTH Consulting Unavailable AICHHOLZ, MATTE CUTTER YESICA Consulting Unavailable AICHHOLZ, MATTE CUTTER YESICA Primary Care Unavailable AICHHOLZ, MATTE CUTTER YESICA Admitting Unavailable AICHHOLZ, MATTE CUTTER YESICA Attending Unavailable Elise Stone Unavailable MD Gopal Potter Attending Provider [phone] Yesica Nickerson Primary Care Provider [phone] Tika Otero Unavailable Boby Cevallos Attending Unavailable Boby Cevallos Attending Unavailable Brian Leblanc MD Primary Care Provider [phone] Aicryan VACUUM TANK TENDER, Yesica Unavailable Yesica Nickerson Primary Care Provider [phone] MD Salinas White Attending Provider [phone] Yesica Nickerson Primary Care Unavailable Sal[place] White Attending Unavailable Salinas White Admitting Unavailable YESICA NICKERSON Attending Unavailable ZEESHAN BENSON Referring Unavailable ZEESHAN BENSON Attending Unavailable KRISHAN, YESICA Attending Unavailable KRISHAN, YESICA Attending Unavailable SUNNI MATHEW Attending Unavailable KRISHAN, YESICA Referring Unavailable RADHIKA QUISPE Attending Unavailable AICRYAN, YESICA Attending Unavailable AICRYAN, YESICA Attending Unavailable RADHIKA QUISPE Attending Unavailable Allergies Allergy Classification Reported Allergen(s) Allergy Type Date of Onset Reaction(s) Facility (14 sources) Amoxicillin; Translations: [amoxicillin] Drug Allergy 06-29-19 Unknown (qualifier value), Unknown [facility] (6 sources) Iodine; Translations: [iodine containing compounds] Drug allergy Eruption of skin (disorder) [facility] (12 sources) PARoxetine; Translations: [paroxetine] Drug Allergy 06-29-19 Unknown (qualifier value), Unknown [facility] (12 sources) Povidone-Iodine; Translations: [povidone iodine topical] Drug Allergy 06-29-19 Unknown (qualifier value) [facility] (8 sources) rofecoxib; Translations: [rofecoxib] Drug Allergy 06-29-19 Unknown (qualifier value) [facility] (12 sources) Sertraline; Translations: [sertraline] Drug Allergy 06-29-19 Unknown (qualifier value), Unknown [facility] (1 source) Adhesive agent Drug allergy (disorder) [facility] (5 sources) Iodine Drug Allergy 01-27-20 13 burning sensation, Redness of Skin, Redness of Skin, burning sensation [facility] (1 source) Latex Drug allergy (disorder) [facility] (3 sources) Cortisone; Translations: [cortisone] Drug Allergy 06-29-19 Itching [facility] (4 sources) Iodine Drug Allergy 01-25-20 [facility] (4 sources) methylPREDNISolone Drug Allergy 01-25-20 Itching [facility] (4 sources) Povidone-Iodine Drug Allergy 05-27-19 24 Other [facility] (4 sources) rofecoxib Drug Allergy 04-14-19 Unknown [facility] (1 source) Amoxicillin Drug Allergy 01-21-20 [facility] (1 source) Iodine Drug Allergy 01-21-20 [facility] (1 source) PARoxetine Drug Allergy 06-29-19 [facility] (1 source) Povidone-Iodine Drug Allergy 06-29-19 [facility] (1 source) rofecoxib Drug Allergy 06-29-19 [facility] (1 source) Sertraline Drug Allergy 06-29-19 [facility] Medications Current Medications Medication Drug Class(es) Dates Sig (Normalized) Sig (Original) ALPRAZolam 0.25 mg oral tablet (8 sources) Benzodiazepine Start: 09-13-2021 alprazolam 0.25 mg Tab 30 tab(s), Refills(s) 0 Start Date: 09/13/21 Status: Ordered atorvastatin 10 mg oral tablet (5 sources) HMG-CoA Reductase Inhibitor Start: 10-30-2023 End: 01-28-2024 take 1 tablet by mouth once daily atorvastatin (Lipitor) 10 MG tablet Indications: Mixed hyperlipidemia (CMS/HCC) Take 1 tablet (10 mg) by mouth Daily 90 tablet 1 10/30/2023 01/28/2024 Active Atorvastatin Will cium 10 MG Oral for 90 Days Active cholecalciferol 0.025 mg oral capsule (4 sources) Vitamin D take 2 capsules by mouth every week Cholecalciferol (Vitamin D3) 1000 units capsule Take 2,000 Units by mouth 1 (one) time per week Active DHEA 10 MG (1 source) DHEA 10 MG as di rected Orally Active Hormone Cream Base cream (4 sources) Hormone Cream Ba se cream 0.5 [...] Active metaxalone 800 mg oral table t (8 sources) Start: 11-13-2021 metaxalone 800 mg Tab Refills(s) 0 Start Date: 11/13/21 Status: Ordered metaxalone (Skel axin) 800 MG tablet Take 400 mg by mouth 4 (four) times a day as needed for muscle spasms Active omeprazole 20 mg delayed release oral capsule (12 sources) Proton Pump Inhibitor Start: 12-04-2023 End: 01-03-2024 take 1 capsule by mouth before mealtime omeprazole (PriLOSEC) [address] capsule Indications: Peptic ulcer without hemorrhage, perforation, or obstruction Take 1 capsule (20 mg) by mouth in the morning. Take before meals. 30 capsule 2 12/04/2023 01/03/2024 Active Start: 09-13-2021 take 1 capsule by mo uth once daily omeprazole 40 mg Cap-DR 30 EA, TAKE 1 CAPSULE BY MOUTH EVERY DAY, Refills(s) 0 Start Date: 09/13/21 Status: Ordered Omeprazole Activ e spironolactone 25 mg oral tablet (4 sources) Aldosterone Antagonist Start: 11-17-2023 End: 12-17-2023 take 1 tablet by mouth once daily as needed spironolactone (Aldactone) 25 MG tablet Indications: Bilateral lower extremity edema Take 1 tablet (25 mg) by mouth Daily as needed (swelling legs) 30 tablet 2 11/17/2023 Active UNABLE TO FIND (4 sources) take 1 tablet by mouth once daily UNABLE TO FIND Take 1 tablet by mouth Daily Med Name: DHEA 5mg tablet Active Problems Active Problems Problem Classification Problem Date Documented Date Episodic/Chronic Anxiety disorders (4 sources) Mixed anxiety and depressive disorder; Translations: [Anxiety disorder, unspecified] Onset: 04-29-2023 04-29-2023 Chronic Disorders of lipid metabolism (4 sources) Mixed hyperlipidemia; Translations: [Mixed hyperlipidemia] Onset: 04-14-2023 04-14-2023 Chronic Endometriosis (4 sources) Endometriosis (clinical); Translations: [Endometriosis, unspecified] Onset: 01-29-2013 01-24-2023 Chronic Esophageal disorders (5 sources) Gastroesophageal reflux disease without esophagitis; Translations: [Gastro-esophageal reflux disease without esophagitis] Onset: 12-04-2023 12-04-2023 Chronic Fluid and electrolyte disorders (4 sources) Hypokalemia; Translations: [Hypokalemia] Onset: 10-30-2023 10-30-2023 Episodic Gastroduodenal ulcer (except hemorrhage) (6 sources) Peptic ulcer without hemorrhage, without perforation AND without obstruction; Translations: [Peptic ulcer, site unspecified, unspecified as acute or chronic, without hemorrhage or perforation] Onset: 01-29-2013 01-24-2023 Chronic Headache; including migraine (4 sources) Migraine; Translations: [Migraine, unspecified, not intractable, without status migrainosus] Onset: 04-29-2023 04-29-2023 Chronic Immunizations and screening for infectious disease (6 sources) Anti-nuclear factor positive; Translations: [Other specified abnormal immunological findings in serum] Onset: 11-06-2023 11-06-2023 Episodic Joint disorders and dislocations; trauma-related (4 sources) Derangement of right knee; Translations: [Unspecified internal derangement of right knee] Onset: 01-24-2023 01-24-2023 Chronic Malaise and fatigue (5 sources) Asthenia; Translations: [Weakness] Onset: 09-23-2023 Episodic Menopausal disorders (8 sources) Menopausal and female climacteric states; Translations: [Menopause ovarian failure] Onset: 04-19-2022 Chronic Menstrual disorders (10 sources) Amenorrhea; Translations: [Amenorrhea, unspecified] Onset: 01-24-2023 01-24-2023 Chronic Nonmalignant breast conditions (4 sources) Fibrocystic disease of breast; Translations: [Diffuse cystic mastopathy of unspecified breast] Onset: 01-29-2013 01-24-2023 Chronic Osteoarthritis (4 sources) Osteoarthritis of knee; Translations: [Osteoarthritis of knee, unspecified] Onset: 01-24-2023 01-24-2023 Chronic Other endocrine disorders (1 source) Other specified disorders of adrenal gland; Translations: [OTHER SPEC DISORDERS ADRENAL GLAND] Onset: 04-22-2022 Chronic Other eye disorders (1 source) Dermatochalasis of right upper eyelid; Translations: [Dermatochalasis] 12-25-2023 Episodic Other eye disorders (1 source) Ptosis of eyelid; Translations: [Unspecified ptosis of bilateral eyelids] 12-25-2023 Episodic Other female genital disorders (4 sources) Pain in female genitalia on intercourse; Translations: [Unspecified dyspareunia] Onset: 04-29-2023 04-29-2023 Chronic Other nervous system disorders (1 source) Other chronic pain; Translations: [OTHER CHRONIC PAIN] Onset: 06-19-2021 Chronic Other nervous system disorders (4 sources) Thoracic outlet syndrome; Translations: [Brachial plexus [...] Chronic Other nutritional; endocrine; and metabolic disorders (6 sources) Obesity; Translations: [Obesity, unspecified] Onset: 01-24-2023 01-24-2023 Chronic Other upper respiratory disease (2 sources) Seasonal allergic rhinitis; Translations: [Other seasonal allergic rhinitis] Chronic Other upper respiratory disease (1 source) Other seasonal allergic rhinitis Chronic Other upper respiratory infections (1 source) Acute pharyngitis, unspecified Episodic Residual codes; unclassified (4 sources) Obstructive sleep apnea syndrome; Translations: [Obstructive sleep apnea (adult) (pediatric)] Onset: 04-29-2023 04-29-2023 Chronic Residual codes; unclassified (4 sources) Localized edema; Translations: [LOCALIZED EDEMA] Onset: 05-18-2022 Episodic Substance-related disorders (4 sources) Smokes tobacco daily; Translations: [Nicotine dependence, unspecified, uncomplicated] Onset: 01-24-2023 01-24-2023 Chronic Thyroid disorders (1 source) Nontoxic goiter, unspecified; Translations: [NONTOXIC GOITER UNSPECIFIED] Onset: 04-22-2022 Chronic Past or Other Problems Problem Classification Problem Date Documented Date Episodic/Chronic Cardiac dysrhythmias (4 sources) Palpitations; Translations: [Palpitations] Onset: 09-24-2023 09-24-2023 Episodic Conditions associated with dizziness or vertigo (5 sources) Dizziness and giddiness; Translations: [Dizziness and giddiness] Onset: 09-23-2023 Episodic Headache; including migraine (4 sources) Headache; Translations: [Headache] Onset: 06-17-2007 04-29-2023 Episodic Other connective tissue disease (4 sources) Fibromyalgia; Translations: [FIBROMYALGIA] Onset: 06-15-2021 Episodic Other connective tissue disease (4 sources) Plantar fasciitis; Translations: [Plantar fascial fibromatosis] Onset: 01-24-2023 01-24-2023 Episodic Other connective tissue disease (4 sources) Fibromyalgia; Translations: [Fibromyalgia] Onset: 04-29-2023 04-29-2023 Episodic Other non-traumatic joint disorders (8 sources) Pain in right knee; Translations: [Pain in joint, lower leg] Onset: 06-14-2021 Episodic Other non-traumatic joint disorders (1 source) Pain in left knee; Translations: [PAIN IN LEFT KNEE] Onset: 06-19-2021 Episodic Other screening for suspected conditions (not mental disorders or infectious disease) (20 sources) Encounter for screening mammogram for malignant neoplasm of breast; Translations: [Abnormal findings on diagnostic imaging of breast] Onset: 01-11-2022 Episodic Other skin disorders (4 sources) Disorder of skin of lower limb; Translations: [Disorder of the skin and subcutaneous tissue, unspecified] Onset: 08-05-2023 08-05-2023 Episodic Other skin disorders (4 sources) Mass of skin of right lower [...] ORGN/SYS] Onset: 01-16-2022 Episodic Residual codes; unclassified (4 sources) Bilateral lower limb edema; Translations: [Localized edema] Onset: 04-14-2023 04-14-2023 Episodic Residual codes; unclassified (6 sources) Tobacco user; Translations: [Tobacco use] Onset: 04-29-2023 04-29-2023 Episodic Residual codes; unclassified (4 sources) Menopause present; Translations: [Asymptomatic menopausal state] Onset: 04-30-2023 04-30-2023 Episodic Residual codes; unclassified (4 sources) Patient participation status; Translations: [Other specified health status] Onset: 08-05-2023 08-05-2023 Episodic Unclassified (1 source) Exposure to 2019 novel coronavirus; Translations: [Contact with and (suspected) exposure to COVID19] Unclassified (1 source) Suspected COVID-19 virus infection Z20.822 Varicose veins of lower extremity (6 sources) Varicose veins of lower extremity; Translations: [Varicose veins of bilateral lower extremities with pain] Onset: 08-05-2023 08-05-2023 Episodic Viral infection (1 source) COVID-19 Results Test Name Value Interpretation Reference Range Facility Automated basophil %Ordered By: Salinas White on 12-04-2023 Basophils/100 WBC (Bld) 0.9 % Normal . [facility] Comment on above: Performed By: #### C 3, CH50, C4 #### [facility] , #### ADDONUAPLUS, CRP, CREAT, ESR, CBC #### [facility] [address] Automated basophil countOrde red By: Salinas White on 12-04-2023 Basophils (Bld) [#/Vol] 0.0 10*3/uL Normal 0.0-0.2 [facility] Comment on above: Performed By: #### C 3, CH50, C4 #### [facility] , #### ADDONUAPLUS, CRP, CREAT, ESR, CBC #### [facility] [address] [place] [address] Automated blood monocyte cou ntOrdered By: Salinas White on 12-04-2023 Monocytes (Bld) [#/Vol] 0.3 10*3/uL Normal 0.0-0.8 [facility] Comment on above: Performed By: #### C 3, CH50, C4 #### [facility] , #### ADDONUAPLUS, CRP, CREAT, ESR, CBC #### [address] Automated eosinophil %Ordere d By: Salinas White on 12-04-2023 Eosinophils/100 WBC (Bld) 2.7 % Normal . [facility] Comment on above: Performed By: #### C 3, CH50, C4 #### [facility] , #### ADDONUAPLUS, CRP, CREAT, ESR, CBC #### [address] Automated eosinophil countOr dered By: Salinas White on 12-04-2023 Eosinophils (Bld) [#/Vol] 0.1 10*3/uL Normal 0.0-0.45 [facility] Comment on above: Performed By: #### C 3, CH50, C4 #### [facility] , #### ADDONUAPLUS, CRP, CREAT, ESR, CBC #### [address] Automated monocyte %Ordered By: Sal[place] White on 12-04-2023 Monocytes/100 WBC (Bld) 6.1 % Normal . [facility] Comment on above: Performed By: #### C 3, CH50, C4 #### [facility] , #### ADDONUAPLUS, CRP, CREAT, ESR, CBC #### [address] Automated neutrophil %Ordere d By: Salinas White on 12-04-2023 Neutrophils/100 WBC (Bld) 50.0 % Normal . [facility] Comment on above: Performed By: #### C 3, CH50, C4 #### [facility] , #### ADDONUAPLUS, CRP, CREAT, ESR, CBC #### [facility] [address] [place] [address] [place] Bacteria [Presence] in Urine by AutomatedOrdered By: Salinas White on 12-04-2023 Bacteria Auto Ql (U) Rare [HPF] None Seen [facility] Bilirubin Test strip Ql (U)O rdered By: Salinas White on 12-04-2023 Bilirubin Ql (U) Negative Negative [facility] C reactive protein [Mass/vol ume] in Serum or PlasmaOrdered By: Salinas White on 12-04-2023 CRP [Mass/Vol] < 0.5 mg/dL 0.0-0.5 [facility] C-Reactive Proteinon 024 CRP [Mass/Vol] mg/L Normal 0.0-0.5 [facility] Comment on above: Result Comment: PERF ORMED BY: [place] [address] PATHOLOGIST INFORMATICS PHYSICIAN LIAISON LYDIA JACKSON M.D. Performed By: #### C 3, CH50, C4 #### [facility] , #### ADDONUAPLUS, CRP, CREAT, ESR, CBC #### [address] Color of Urine by AutoOrdere d By: Salinas White on 12-04-2023 Color (U) Light-yellow Normal Yellow [facility] Comment on above: Order Comment: Name Collection Type:: Clean-Voided Midstream Performed By: #### C 3, CH50, C4 #### [facility] , #### ADDONUAPLUS, CRP, CREAT, ESR, CBC #### [facility] [address] [place] [address] [place] Complement C3on 12-04-2023 Complement C3 125 mg/dL Normal 82-167 [facility] Comment on above: Result Comment: Perf ormed at: - [facility] [address] [id number] Entry Table Operator: Bill Lagunas PhD, Phone: [phone] Performed By: #### C 3, CH50, C4 #### [facility] , #### ADDONUAPLUS, CRP, CREAT, ESR, CBC #### [place] [id number] [place] Complement C4on 12-04-2023 Complement C4 29 mg/dL Normal 12-38 [facility] Comment on above: Result Comment: PERF ORMED BY: [place] [address] PATHOLOGIST INFORMATICS PHYSICIAN LIAISON LYDIA JACKSON M.D. Performed By: #### C 3, CH50, C4 #### [facility] , #### ADDONUAPLUS, CRP, CREAT, ESR, CBC #### [address] Complement Total (CH50)on Complement Total (CH50) 52 Normal >41 [facility] Comment on above: Result Comment: [...] out of range values. Performed at: - [facility] [id number] Entry Table Operator: Bill Lagunas PhD, Phone: [phone] PERFORMED BY: [place] [address] PATHOLOGIST INFORMATICS PHYSICIAN LIAISON LYDIA JACKSON M.D. Performed By: #### C 3, CH50, C4 #### [facility] , #### ADDONUAPLUS, CRP, CREAT, ESR, CBC #### [place] [id number] [facility] Complete Blood Count Auto Di ffon 12-04-2023 Mean Corpuscular HGB Conc 34.1 g/dL Normal 32.0-35.0 [facility] Comment on above: Performed By: #### C 3, CH50, C4 #### [facility] , #### ADDONUAPLUS, CRP, CREAT, ESR, CBC #### [facility] [address] NRBC% 0.1 /100{WBC} Normal 0-0.5 [facility] Comment on above: Performed By: #### C 3, CH50, C4 #### [facility] , #### ADDONUAPLUS, CRP, CREAT, ESR, CBC #### [facility] [address] [place] [address] Creatinineon 12-04-2023 GFR/1.73 sq M.predicted MDRD (S/P/Bld) [Vol rate/Area] mL/min/{1.73_m2} Normal [facility] Comment on above: Performed By: #### C 3, CH50, C4 #### [facility] , #### ADDONUAPLUS, CRP, CREAT, ESR, CBC #### [facility] [address] [place] [address] Creatinine [Mass/volume] in Serum or PlasmaOrdered By: Salinas White on 12-04-2023 Creatinine [Mass/Vol] 0.71 mg/dL Normal 0.60-1.20 [facility] Comment on above: Performed By: #### C 3, CH50, C4 #### [facility] , #### ADDONUAPLUS, CRP, CREAT, ESR, CBC #### [facility] [address] [place] [address] Dipstick and Microscopicon 1 Bacteria,Urine Rare Normal None Seen [facility] Comment on above: Order Comment: Name Collection Type:: Clean-Voided Midstream Performed By: #### C 3, CH50, C4 #### [facility] , #### ADDONUAPLUS, CRP, CREAT, ESR, CBC #### [address] Bilirubin,Urine Negative Normal Negative [facility] Comment on above: Order Comment: Name Collection Type:: Clean-Voided Midstream Performed By: #### C 3, CH50, C4 #### [facility] , #### ADDONUAPLUS, CRP, CREAT, ESR, CBC #### [address] Glucose Ql (U) Normal Normal Normal [facility] Comment on above: Order Comment: Name Collection Type:: Clean-Voided Midstream Performed By: #### C 3, CH50, C4 #### [facility] , #### ADDONUAPLUS, CRP, CREAT, ESR, CBC #### [address] Hyaline Casts,Urine None Normal 0-8 [facility] Comment on above: Order Comment: Name Collection Type:: Clean-Voided Midstream Performed By: #### C 3, CH50, C4 #### [facility] , #### ADDONUAPLUS, CRP, CREAT, ESR, CBC #### [address] Mucus,Urine Rare Normal [facility] Comment on above: Order Comment: Name Collection Type:: Clean-Voided Midstream Result Comment: PERF ORMED BY: [place] [address] PATHOLOGIST INFORMATICS PHYSICIAN LIAISON LYDIA JACKSON M.D. Performed By: #### C 3, CH50, C4 #### [facility] , #### ADDONUAPLUS, CRP, CREAT, ESR, CBC #### [address] Nitrite,Urine Negative Normal Negative [facility] Comment on above: Order Comment: Name Collection Type:: Clean-Voided Midstream Performed By: #### C 3, CH50, C4 #### [facility] , #### ADDONUAPLUS, CRP, CREAT, ESR, CBC #### [address] Occult Blood,Urine Negative Normal Negative [facility] Comment on above: Order Comment: Name Collection Type:: Clean-Voided Midstream Performed By: #### C 3, CH50, C4 #### [facility] , #### ADDONUAPLUS, CRP, CREAT, ESR, CBC #### [address] Protein,Urine Negative Normal Negative [facility] Comment on above: Order Comment: Name Collection Type:: Clean-Voided Midstream Performed By: #### C 3, CH50, C4 #### [facility] , #### ADDONUAPLUS, CRP, CREAT, ESR, CBC #### [address] RBC,Urine None Seen Normal 0-4 [facility] Comment on above: Order Comment: Name Collection Type:: Clean-Voided Midstream Performed By: #### C 3, CH50, C4 #### [facility] , #### ADDONUAPLUS, CRP, CREAT, ESR, CBC #### [address] Specificy [place],Urine 1.018 Normal 1.001-1.030 [facility] Comment on above: Order Comment: Name Collection Type:: Clean-Voided Midstream Performed By: #### C 3, CH50, C4 #### [facility] , #### ADDONUAPLUS, CRP, CREAT, ESR, CBC #### [address] Squamous Epithelial Cell,Urine 3-4 High 0-2 [facility] Comment on above: Order Comment: Name Collection Type:: Clean-Voided Midstream Performed By: #### C 3, CH50, C4 #### [facility] , #### ADDONUAPLUS, CRP, CREAT, ESR, CBC #### [address] Urobilinogen,Urine Normal Normal Normal [facility] Comment on above: Order Comment: Name Collection Type:: Clean-Voided Midstream Performed By: #### C 3, CH50, C4 #### [facility] , #### ADDONUAPLUS, CRP, CREAT, ESR, CBC #### [address] WBC,Urine 1-2 Normal 0-4 [facility] Comment on above: Order Comment: Name Collection Type:: Clean-Voided Midstream Performed By: #### C 3, CH50, C4 #### [facility] , #### ADDONUAPLUS, CRP, CREAT, ESR, CBC #### [address] Epithelial cells.squamous [# /area] in Urine sediment by Automated countOrdered By: Salinas White on 12-04-2023 Epithelial cells.squamous Auto (Urine sed) [#/Area] 3-4 [HPF] High 0-2 [facility] Erythrocyte Sedimentation Ra florentino 12-04-2023 ESR (Bld) [Velocity] 6 mm/h Normal 0-19 [facility] Comment on above: Result Comment: PERF ORMED BY: [place] [address] PATHOLOGIST INFORMATICS PHYSICIAN LIAISON LYDIA JACKSON M.D. Performed By: #### C 3, CH50, C4 #### [facility] , #### ADDONUAPLUS, CRP, CREAT, ESR, CBC #### [address] Erythrocyte distribution wid th [Ratio] by Automated countOrdered By: Salinas White on 12-04-2023 Erythrocyte distribution width (RBC) [Ratio] 13.1 % Normal 11.9-15.3 [facility] Comment on above: Performed By: #### C 3, CH50, C4 #### [facility] , #### ADDONUAPLUS, CRP, CREAT, ESR, CBC #### [facility] [address] [place] [address] Erythrocyte sedimentation ra te by Photometric methodOrdered By: Salinas White on 12-04-2023 ESR Photometric method (Bld) [Velocity] 6 mm/hr 0-19 [facility] Erythrocytes [#/area] in Uri ne sediment by Automated countOrdered By: Salinas White on 12-04-2023 RBC Auto (Urine sed) [#/Area] None seen [HPF] 0-4 [facility] Erythrocytes [#/volume] in B lood by Automated countOrdered By: Salinas White on 12-04-2023 RBC (Bld) [#/Vol] 4.65 10*6/uL Normal 3.60-5.00 [facility] Comment on above: Performed By: #### C 3, CH50, C4 #### [facility] , #### ADDONUAPLUS, CRP, CREAT, ESR, CBC #### [address] Glucose [Mass/volume] in Uri ne by Test stripOrdered By: Salinas White on 12-04-2023 Glucose Test strip (U) [Mass/Vol] Normal mg/dL Normal [facility] Hematocrit [Volume Fraction] of Blood by Automated countOrdered By: Salinas White on 12-04-2023 Hematocrit (Bld) [Volume fraction] 41.2 % Normal 34.0-46.4 [facility] Comment on above: Performed By: #### C 3, CH50, C4 #### [facility] , #### ADDONUAPLUS, CRP, CREAT, ESR, CBC #### [address] Hemoglobin Test strip Ql (U) Ordered By: Salinas White on 12-04-2023 Hemoglobin Ql (U) Negative Negative [facility] Hemoglobin [Mass/volume] in BloodOrdered By: Salinas White on 12-04-2023 Hemoglobin (Bld) [Mass/Vol] 14.1 g/dL Normal 11.8-15.4 [facility] Comment on above: Performed By: #### C 3, CH50, C4 #### [facility] , #### ADDONUAPLUS, CRP, CREAT, ESR, CBC #### [facility] [address] [place] [address] [place] Hyaline casts [#/area] in Ur ine sediment by Automated countOrdered By: Salinas White on 12-04-2023 Hyaline casts Auto (Urine sed) [#/Area] None [LPF] 0-8 [facility] Ketones [Presence] in Urine by Test stripOrdered By: Salinas White on 12-04-2023 Ketones Ql (U) Negative Normal Negative [facility] Comment on above: Order Comment: Name Collection Type:: Clean-Voided Midstream Performed By: #### C 3, CH50, C4 #### [facility] , #### ADDONUAPLUS, CRP, CREAT, ESR, CBC #### [facility] [address] [place] [address] [place] Leukocyte esterase [Presence ] in Urine by Test stripOrdered By: Salinas White on 12-04-2023 Leukocyte esterase Test strip Ql (U) Negative Normal Negative [facility] Comment on above: Order Comment: Name Collection Type:: Clean-Voided Midstream Performed By: #### C 3, CH50, C4 #### [facility] , #### ADDONUAPLUS, CRP, CREAT, ESR, CBC #### [facility] [address] [place] [address] [place] Leukocytes [#/area] in Urine sediment by Automated countOrdered By: Salinas White on 12-04-2023 WBC Auto (Urine sed) [#/Area] 1-2 [HPF] 0-4 [facility] Leukocytes [#/volume] correc carol for nucleated erythrocytes in Blood by Automated counOrdered By: Salinas White on 12-04-2023 WBC corrected for nucl RBC Auto (Bld) [#/Vol] 4.5 10*3/uL 3.8-11.6 [facility] Leukocytes [#/volume] in Blo od by Automated countOrdered By: Salinas White on 12-04-2023 WBC (Bld) [#/Vol] 4.5 10*3/uL Normal 3.8-11.6 [facility] Comment on above: Performed By: #### C 3, CH50, C4 #### [facility] , #### ADDONUAPLUS, CRP, CREAT, ESR, CBC #### [facility] [address] [place] [address] [place] Lymphocytes [#/volume] in Bl ood by Automated countOrdered By: Salinas White on 12-04-2023 Lymphocytes (Bld) [#/Vol] 1.8 10*3/uL Normal 1.00-4.8 [facility] Comment on above: Performed By: #### C 3, CH50, C4 #### [facility] , #### ADDONUAPLUS, CRP, CREAT, ESR, CBC #### [facility] [address] [place] [address] [place] Lymphocytes/100 leukocytes i n Blood by Automated countOrdered By: Salinas White on 12-04-2023 Lymphocytes/100 WBC (Bld) 40.3 % Normal . [facility] Comment on above: Performed By: #### C 3, CH50, C4 #### [facility] , #### ADDONUAPLUS, CRP, CREAT, ESR, CBC #### [facility] [address] [place] [address] [place] MCH [Entitic mass] by Automa carol countOrdered By: Salinas White on 12-04-2023 MCH (RBC) [Entitic mass] 30.3 pg Normal 24.7-34.3 [facility] Comment on above: Performed By: #### C 3, CH50, C4 #### [facility] , #### ADDONUAPLUS, CRP, CREAT, ESR, CBC #### [facility] [address] [place] [address] MCHC Auto (RBC) [Mass/Vol]Or dered By: Salinas White on 12-04-2023 MCHC (RBC) [Mass/Vol] 34.1 g/dL 32.0-35.0 [facility] MCV [Entitic volume] by Auto mated countOrdered By: Salinas White on 12-04-2023 MCV (RBC) [Entitic vol] 88.7 fL Normal 80-100 [facility] Comment on above: Performed By: #### C 3, CH50, C4 #### [facility] , #### ADDONUAPLUS, CRP, CREAT, ESR, CBC #### [facility] [address] [place] [address] Mucus [Presence] in Urine by AutomatedOrdered By: Salinas White on 12-04-2023 Mucus Auto Ql (U) Rare [LPF] [facility] Neutrophils [#/volume] in Bl ood by Automated countOrdered By: Salinas White on 12-04-2023 Neutrophils (Bld) [#/Vol] 2.3 10*3/uL Normal 1.8-7.7 [facility] Comment on above: Performed By: #### C 3, CH50, C4 #### [facility] , #### ADDONUAPLUS, CRP, CREAT, ESR, CBC #### [facility] [address] [place] [address] Nitrite Test strip Ql (U)Ord ered By: Salinas White on 12-04-2023 Nitrite Ql (U) Negative Negative [facility] No Panel InformationOrdered By: Salinas White on 12-04-2023 Estimated GFR (CKD-EPI) > 60.0 mL/Min [facility] Creatinine Clearance (Chem N/A [facility] Nucleated erythrocytes [Pres ence] in Blood by Automated countOrdered By: Salinas White on 12-04-2023 Nucleated RBC Auto Ql (Bld) 0.1 /100{WBC} 0-0.5 [facility] Platelet mean volume [Entiti c volume] in Blood by Automated countOrdered By: Salinas White on 12-04-2023 Platelet mean volume (Bld) [Entitic vol] 9.7 fL Normal 6.3-10.7 [facility] Comment on above: Performed By: #### C 3, CH50, C4 #### [facility] , #### ADDONUAPLUS, CRP, CREAT, ESR, CBC #### [facility] [address] Platelets [#/volume] in Bloo d by Automated countOrdered By: Salinas White on 12-04-2023 Platelets (Bld) [#/Vol] 205 10*3/uL Normal 150-450 [facility] Comment on above: Performed By: #### C 3, CH50, C4 #### [facility] , #### ADDONUAPLUS, CRP, CREAT, ESR, CBC #### [facility] [address] [place] [address] Protein Test strip (U) [Mass /Vol]Ordered By: Salinas White on 12-04-2023 Protein (U) [Mass/Vol] Negative Negative [facility] Specific gravity Test strip (U) [Rel density]Ordered By: Salinas White on 12-04-2023 Specific gravity (U) [Rel density] 1.018 1.001-1.030 [facility] Urine appearanceOrdered By: Salinas White on 12-04-2023 Appearance (U) Clear Normal Clear [facility] Comment on above: Order Comment: Name Collection Type:: Clean-Voided Midstream Performed By: #### C 3, CH50, C4 #### [facility] , #### ADDONUAPLUS, CRP, CREAT, ESR, CBC #### [facility] [address] [place] [address] Urobilinogen Test strip (U) [Mass/Vol]Ordered By: Salinas Websterpaddyanh on 12-04-2023 Urobilinogen (U) [Mass/Vol] Normal mg/dL Normal [facility] pH of Urine by Test stripOrd ered By: Salinas White on 12-04-2023 pH (U) 6.0 [pH] Normal 5.0-9.0 [facility] Comment on above: Order Comment: Name Collection Type:: Clean-Voided Midstream Performed By: #### C 3, CH50, C4 #### [facility] , #### ADDONUAPLUS, CRP, CREAT, ESR, CBC #### [facility] [address] ED Note-Physicianon 09-29-19 ED Note-Physician ED [...] medications Follow-up With When Contact Information YESICA NICKERSON In 3 days 09/26/2023 EDT [address] [place] [address] [phone] Business (1) Additional Instructions: Patient Education Dizziness [...] made to ensure accuracy, however, inadvertently computerized nanny babysitter mistakes may be present. Appropriate healthcare PPE [...] compounds (Rash) (more content not included)... Normal [facility] Comment on above: Result Comment: Elec tronically Signed By: Fadi Mccoy PA-C\.br\Date and Time Signed: 09/23/23 12:54 EDT\.br\Electronically Co-Signed By: Boby Cevallos DO\.br\Date and Time Co-Signed: 09/29/23 09:31 EDT BB Draw & Holdon 09-23-2023 BB D&H Sample drawn for Blood Ba Normal [facility] Comment on above: Performed By: #### 1 [id number] #### [facility] [address] [place] [address] CBC w/ Auto Diffon 4 Basophils/100 WBC (Bld) 0.6 % Normal 0.0-2.0 [facility] Comment on above: Performed By: #### 2 [id number] #### [facility] [address] [place] [address] Basophils/Leukocytes Auto (Bld) [Pure # fraction] 0.0 E9/L Normal 0.0-0.2 [facility] Comment on above: Performed By: #### 2 [id number] #### [facility] [address] [place] [address] Eosinophils (Bld) [#/Vol] 0.0 E9/L Normal 0.0-0.5 [facility] Comment on above: Performed By: #### 2 [id number] #### [facility] [address] [place] [address] Eosinophils/100 WBC (Bld) 0.6 % Normal 0.0-8.0 [facility] Comment on above: Performed By: #### 2 [id number] #### [facility] [address] [place] [address] Erythrocyte distribution width (RBC) [Ratio] 12.8 % Normal 10.9-14.2 [facility] Comment on above: Performed By: #### 2 [id number] #### [facility] [address] [place] [address] Hematocrit (Bld) [Volume fraction] 42.7 % Normal 34.0-46.0 [facility] Comment on above: Performed By: #### 2 [id number] #### [facility] [address] [place] [address] Hemoglobin (Bld) [Mass/Vol] 14.7 g/dL Normal 12.0-16.0 [facility] Comment on above: Performed By: #### 2 [id number] #### [facility] [address] [place] [address] Lymphocytes (Bld) [#/Vol] 1.8 E9/L Normal 1.0-4.0 [facility] Comment on above: Performed By: #### 2 [id number] #### [facility] [address] [place] [address] Lymphocytes/100 WBC (Bld) 30.1 % Normal 14.0-50.0 [facility] Comment on above: Performed By: #### 2 [id number] #### [facility] [address] [place] [address] MCH (RBC) [Entitic mass] 29.9 pg Normal 27.0-34.0 [facility] Comment on above: Performed By: #### 2 [id number] #### [facility] [address] [place] [address] MCHC (RBC) [Mass/Vol] 34.4 g/dL Normal 31.4-36.0 [facility] Comment on above: Performed By: #### 2 [id number] #### [facility] [address] [place] [address] MCV (RBC) [Entitic vol] 86.8 fL Normal 80.0-100.0 [facility] Comment on above: Performed By: #### 2 [id number] #### [facility] [address] [place] [address] Monocytes (Bld) [#/Vol] 0.4 E9/L Normal 0.2-1.0 [facility] Comment on above: Performed By: #### 2 [id number] #### [facility] [address] [place] [address] Neutrophils (Bld) [#/Vol] 3.7 E9/L Normal 2.0-7.5 [facility] Comment on above: Performed By: #### 2 [id number] #### [facility] [address] [place] [address] Neutrophils/100 WBC (Bld) 61.2 % Normal 36.0-75.0 [facility] Comment on above: Performed By: #### 2 [id number] #### [facility] [address] [place] [address] Platelet mean volume (Bld) [Entitic vol] 9.4 fL Normal 6.4-10.8 [facility] Comment on above: Performed By: #### 2 [id number] #### [facility] [address] [place] [address] Platelets (Bld) [#/Vol] 184.0 E9/L Normal 150.0-500.0 [facility] Comment on above: Performed By: #### 2 [id number] #### [facility] [address] [place] [address] RBC (Bld) [#/Vol] 4.9 E12/L Normal 4.3-5.9 [facility] Comment on above: Performed By: #### 2 [id number] #### [facility] [address] [place] [address] WBC corrected for nucl RBC Auto (Bld) [#/Vol] 6.0 E9/L Normal 4.0-11.0 [facility] Comment on above: Performed By: #### 2 [id number] #### [facility] [address] [place] [address] CHEMISTRYOrdered By: SYSTEM SYSTEM on 09-23-2023 Albumin [...] Sensitivity Troponin I Instructions For Use, [email or web address], September 2017) Urea nitrogen [Mass/Vol] 24 mg/dL High 5 - 21 mg/dL [facility] Urea nitrogen/Creatinine [Mass ratio] 27 mg/mg High 10 - 20 [facility] CHEMISTRYOrdered By: Lab ROP User on 09-23-2023 Glucose [Mass/Vol] 89 mg/dL Normal 55 - 99 mg/dL [facility] [place] [place] POC Subsection Comment on above: Result Comment: Trixie dominique Meter POC Device SN [id number] Invalid Interpretation Code [facility] [place] [place] POC Subsection POC User ID [id number] Invalid Interpretation Code [facility] [place] [place] POC Subsection POC Username SANG HEBERT Invalid Interpretation Code [facility] [place] [place] POC Subsection CMPon 09-23-2023 Albumin [Mass/Vol] 4.7 g/dL Normal 3.3-5.0 [facility] Comment on above: Performed By: #### 2 [id number] #### [facility] [address] [place] [address] Albumin/Globulin (S) [Mass conc ratio] 2.0 Normal 1.1-2.2 [facility] Comment on above: Performed By: #### 2 [id number] #### [facility] [address] [place] [address] ALP [Catalytic activity/Vol] 47 Int._Unit/L Normal 21-98 [facility] Comment on above: Performed By: #### 2 [id number] #### [facility] [address] [place] [address] ALT No additional P-5'-P [Catalytic activity/Vol] 22 Int._Unit/L Normal 6-46 [facility] Comment on above: Performed By: #### 2 [id number] #### [facility] [address] [place] [address] Anion gap [Moles/Vol] 10 mmol/L Normal 6-16 [facility] Comment on above: Performed By: #### 2 [id number] #### [facility] [address] [place] [address] AST [Catalytic activity/Vol] 19 Int._Unit/L Normal 5-43 [facility] Comment on above: Performed By: #### 2 [id number] #### [facility] [address] [place] [address] Bilirubin [Mass/Vol] 0.4 mg/dL Normal 0.0-1.1 [facility] Comment on above: Performed By: #### 2 [id number] #### [facility] [address] [place] [address] Calcium [Mass/Vol] 9.9 mg/dL Normal 8.9-11.1 [facility] Comment on above: Performed By: #### 2 [id number] #### [facility] [address] [place] [address] Chloride [Moles/Vol] 104 mmol/L Normal 101-111 [facility] Comment on above: Performed By: #### 2 739184 #### [facility] [address] [place] [address] CO2 [Moles/Vol] 31 mmol/L Normal 21-31 [facility] Comment on above: Performed By: #### 2 [id number] #### [facility] [address] [place] [address] Creatinine [Mass/Vol] 0.9 mg/dL Normal 0.5-1.3 [facility] Comment on above: Performed By: #### 2 799549 #### [facility] [address] [place] [address] Globulin (S) [Mass/Vol] 2.4 g/dL Normal 1.4-4.0 [facility] Comment on above: Performed By: #### 2 039216 #### [facility] [address] [place] [address] Glucose [Mass/Vol] 101 mg/dL Normal 55-199 [facility] Comment on above: Performed By: #### 2 [id number] #### [facility] [address] [place] [address] Potassium [Moles/Vol] 3.5 mmol/L Normal 3.5-5.3 [facility] Comment on above: Performed By: #### 2 468599 #### [facility] [address] [place] [address] Protein [Mass/Vol] 7.1 g/dL Normal 6.0-7.8 [facility] Comment on above: Performed By: #### 2 772980 #### [facility] [address] [place] [address] Sodium [Moles/Vol] 141 mmol/L Normal 135-145 [facility] Comment on above: Performed By: #### 2 995236 #### [facility] [address] [place] [address] Urea nitrogen [Mass/Vol] 24 mg/dL High 5-21 [facility] Comment on above: Performed By: #### 2 313391 #### [facility] [address] [place] [address] Urea nitrogen/Creatinine [Mass ratio] 27 No Units High 10-20 [facility] Comment on above: Performed By: #### 2 [id number] #### [facility] [address] [place] [address] COAGULATIONOrdered By: Abigail Robles on 09-23-2023 aPTT Coag (PPP) [Time] 35.1 s Normal 25.1 - 36.5 second(s) [facility] [place] [place] Auto Coag Comment on above: Interpretive Data: [...] the same coagulation reagent and instrumentation as [facility] [place] [place]. Currently there are no coagulation studies available worldwide for children to 14 days, and no normal ranges. Heparin therapeutic range (represented by Anti-Factor Xa activity of 0.2 - 0.4 U/mL) corresponds to PTT of 56.6 - 109.0 sec. INR Coag (PPP) [Relative time] 1.01 {INR} Invalid Interpretation Code [facility] [place] [place] Auto Coag Comment on above: Interpretive Data: I NR results are specifically intended to assess patients stabilized on long-term Anticoagulation therapy suggested INR s Less Intensive Anticoagulation 2.0 3.0 Conventional Range 3.0 4.5 PT Coag (PPP) [Time] 11.3 s Normal 9.4 - 1 2.5 second(s) [facility] [place] [place] Auto Coag Comment on above: Interpretive Data: [...] the same coagulation reagent and instrumentation as [facility] [place] [place]. Currently there are no coagulation studies available [...] Eliu Zhao M.D. neg for bleed. Normal [facility] Capillary Glucose POCon Glucose [Mass/Vol] 89 mg/dL Normal 55-99 [facility] Comment on above: Result Comment: Trixie dominique Meter Performed By: #### 2 [id number] #### [facility] [address] [place] [address] ED Clinical Summaryon 2023 ED Clinical Summary ED Clinical Summary [address] [address] ED Clinical Summary Person Information Name: AUDREY ISAACS [place] Age: 48 Years : 1975 Sex: Female Language: Nepali PCP: YESICA NICKERSON CNP Marital Status: Visit [...] 13:01:25 09/23/2023 13:01:25 09/23/2023 13:01:25 AD[address]ESS: [id number] [facility] [id number] PHYS DOC NOTES: MEDICAL INFORMATION: Prescriptions Given: Medications to Continue with No Changes Other Medications alprazolam (alprazolam 0.25 mg Tab) 30 tab(s). metaxalone (metaxalone 800 mg Tab) omeprazole (omeprazole 40 mg Cap-DR) 30 EA, TAKE 1 CAPSULE BY MOUTH EVERY DAY. PATIENT EDUCATION INFORMATION: Instructions: Dizziness Follow up: With: Address: When: YESICA NICKERSON [address], [place], [place] [id number] [phone] [employer] (1) In 3 days 09/26/2023 DIAGNOSIS: Dizziness; Weakness Normal [facility] ED Patient Summaryon 024 ED Patient Summary ED Patient Summary [address] [address] Patient Discharge Instructions Person Information Name: AUDREY ISAACS Age: 48 Years Arrival Date: 09/23/2023 10:54:19 Discharge Diagnosis: Dizziness; Weakness Primary Care Physician: YESICA NICKERSON CNP Provider Information Primary Provider: Boby Cevallos DO Advanced Pre Planning Advisor:Fadi Mccoy PA-C The exam and treatment you received in the Emergency Department were for an urgent problem and are not intended as complete care. It is important that you follow up with a doctor, nurse practitioner, or physician?s dental assistant teacher for ongoing care. If your symptoms become worse or you do not improve as expected and you are unable to reach your usual health care provider, you should return to the Emergency Department. We are available 24 hours a day. AUDREY ISAACS has been given the following list of patient education materials, prescriptions and follow-up instructions: Follow-up Instructions: With: Address: When: YESICA [address], [place], [place] [phone] [employer] (1) In 3 days 09/26/2023 In the event that this physician does not participate in your insurance network, please consult with your insurance company to find a nearby participating provider. Patient Education Materials: Dizziness A MESSAGE TO ALL PATIENTS REGARDING OPIOIDS PRESCRIPTION OPIOIDS: WHAT YOU NEED TO KNOW Prescription opioids can be used to help relieve cibfpvqa-gh-prudde pain and are often prescribed following a [...] struggling with addiction, tell your health career services assistant and ask for guidance or call [facility]?S National Helpline at 9-265-650-JKR (more content not included)... Normal [facility] HEMATOLOGYOrdered By: Siobhan Robles on 09-23-2023 [...] Coag (PPP) [Time] 35.1 second(s) Normal 25.1-36.5 [facility] Comment on above: Result Comment: Para [...] the same coagulation reagent and instrumentation as [facility] [place] [place]. Currently there are no coagulation studies available worldwide for children to 14 days, and no normal ranges. Heparin therapeutic range (represented by Anti-Factor Xa activity of 0.2 - 0.4 U/mL) corresponds to PTT of 56.6 - 109.0 sec. Performed By: #### 1 [id number] #### [facility] [address] [place] [address] INR Coag (PPP) [Relative time] 1.01 {INR} Invalid Interpretation Code [facility] Comment on above: Result Comment: INR results are specifically intended to assess patients stabilized on long-term Anticoagulation therapy suggested INR?s ?Less Intensive Anticoagulation? 2.0 ? 3.0 Conventional Range 3.0 ? 4.5 Performed By: #### 1 [id number] #### [facility] [address] [place] [address] PT Coag (PPP) [Time] 11.3 second(s) Normal 9.4-12.5 [facility] Comment on above: Result Comment: 15 [...] the same coagulation reagent and instrumentation as [facility] [place] [place]. Currently there are no coagulation studies available worldwide for children to 14 days, and no normal ranges. Performed By: #### 1 [id number] #### [facility] [address] [place] [address] Troponin 0 Hr.on 09-23-2023 Troponin HS <2.30 Low 10.10-27.10 [facility] Comment on above: Result Comment: The 95% CI (Confidence Interval) PPV (Positive Predictive Value) for myocardial infarction in females is 38 pg/mL, in males 51 pg/mL. The results should be used in conjunction with clinical conditions of myocardial infarction. (Access High Sensitivity Troponin I Instructions For Use, [employer], September 2017) Performed By: #### 1 [id number] #### [facility] [address] [place] [address] UA with Cult Rflxon 09-23-19 24 Bilirubin Ql (U) Negative Normal Negative [facility] Comment on above: Performed By: #### 4 [id number] #### [facility] [address] [place] [address] Clarity (U) Clear Normal Clear [facility] Comment on above: Performed By: #### 4 [id number] #### [facility] [address] [place] [address] Color (U) Light-Yellow Normal Yellow [facility] Comment on above: Result Comment: Micr oscopic readings are only performed on those samples that meet specific criteria set forth by [facility]. Performed By: #### 4 [id number] #### [facility] [address] [place] [address] Glucose Ql (U) Negative Normal Negative [facility] Comment on above: Performed By: #### 4 [id number] #### [facility] [address] [place] [address] Hemoglobin Auto test strip (U) [Mass/Vol] Negative Normal Negative [facility] Comment on above: Performed By: #### 4 [id number] #### [facility] [address] [place] [address] Ketones Auto test strip Ql (U) Negative Normal Negative [facility] Comment on above: Performed By: #### 4 [id number] #### [facility] [address] [place] [address] Leukocyte esterase Auto test strip Ql (U) Negative Normal Negative [facility] Comment on above: Performed By: #### 4 [id number] #### [facility] [address] [place] [address] Nitrite Auto test strip Ql (U) Negative Normal Negative [facility] Comment on above: Performed By: #### 4 [id number] #### [facility] [address] [place] [address] pH (U) 5.5 [pH] Invalid Interpretation Code 5.0-9.0 [facility] Comment on above: Performed By: #### 4 [id number] #### [facility] [address] [place] [address] Protein Ql (U) Negative Normal Negative [facility] Comment on above: Performed By: #### 4 [id number] #### [facility] [address] [place] [address] Specific gravity (U) [Rel density] 1.023 Invalid Interpretation Code 1.005-1.030 [facility] Comment on above: Performed By: #### 4 [id number] #### [facility] [address] [place] [address] Urobilinogen (U) [Mass/Vol] Negative Normal Negative [facility] Comment on above: Performed By: #### 4 [id number] #### [facility] [facility] [address] [place] [address] Type of Urine collection method Clean Catch Normal [facility] Comment on above: Performed By: #### 4 [id number] #### [facility] [address] [id number] URINALYSISOrdered By: SYSTEM SYSTEM on 09-23-2023 Bilirubin Ql (U) Negative Normal Negativemg/ d L [facility] [place] [place] UA Auto SS Clarity (U) Clear (09/23/23 12:16 PM) Normal Clear [facility] [place] [place] UA Auto SS Color (U) Light-Yellow 1 (09/23/23 12:16 PM) Normal Yellow [facility] Auto SS Comment on above: Interpretive Data: M icroscopic readings are only performed on those samples that meet specific criteria set forth by [facility]. Glucose Ql (U) Negative Normal [...] PM) Invalid Interpretation Code 1.005 - 1.030 [facility] [place] [place] UA Auto SS Urobilinogen (U) [Mass/Vol] Negative Normal Negativemg/d L [facility] [place] [place] UA Auto SS URINALYSISOrdered By: Fadi Mccoy on 09-23-2023 UA Spec Desc Clean Catch (09/23/23 12:16 PM) Normal [facility] [place] [place] UA Auto SS XR Chest Single Viewon [...] mGy = na DAP = na Normal [facility] eGFRon 09-23-2023 eGFR 79 mL/min/1.73 m2 Normal >=59 [facility] Comment on above: Order Comment: Order added by Discern Expert. Performed By: #### 1 [id number] #### [facility] [address] [place] [address] COVID Quick Testingon 2022 Result Positive [employer] Other No Panel InformationOrdered By: Gopal Potter on 06-28-2022 Cortisol Response to Stimulation See comment [facility] Comment on above: [employer] 11.4 Col: 06/28/22 1000 [place] 30Min 20.6 Col: 06/28/22 1050 [place] 60Min 23.2 Col: 06/28/22 1120 Quick Strepon 06-11-2022 S. pyogenes Org specific cx Ql (Throat) Negative [employer] Other Quick Strep [employer] Other PROF CHEM 8 (BAS METB)on Anion gap [Moles/Vol] 10.7 mmol/L Normal [facility] Comment on above: Performed By: #### B MP #### [facility] [address] [address] [address] Brandon Hodges Calcium [Mass/Vol] 9.3 mg/dL Normal 8.5-10.1 [facility] Comment on above: Performed By: #### B MP #### [facility] [address] [address] [address] Brandon Hodges Chloride [Moles/Vol] 103 mmol/L Normal 98-107 [facility] Comment on above: Performed By: #### B MP #### [facility] [address] [address] [address] Brandon Hodges CO2 [Moles/Vol] 31.5 mmol/L Normal 21.0-32.0 [facility] Comment on above: Performed By: #### B MP #### [facility] [address] [address] [address] Brandon Hodges Creatinine [Mass/Vol] 0.76 mg/dL Normal 0.55-1.02 [facility] Comment on above: Performed By: #### B MP #### [facility] [address] [address] [address] Brandon Hodges EGFR-AF LAO >60 Normal >=60 [facility] Comment on above: Performed By: #### B MP #### [facility] [address] [address] [address] Brandon Hodges EGFR-NON AF LAO >60 Normal >=60 [facility] Comment on above: Performed By: #### B MP #### [facility] [address] [address] [address] Brandon Hodges Glucose [Mass/Vol] 124 mg/dL Critically high 74-106 [facility] Comment on above: Performed By: #### B MP #### [facility] [address] [address] [address] Brandon Hodges Potassium [Moles/Vol] 4.2 mmol/L Normal 3.5-5.1 [facility] Comment on above: Performed By: #### B MP #### [facility] [address] [address] [address] Brandon Hodges Sodium [Moles/Vol] 141 mmol/L Normal 136-145 [facility] Comment on above: Performed By: #### B MP #### [facility] [address] [address] [address] Brandon Hodges Urea nitrogen [Mass/Vol] 19.0 mg/dL Critically high 7.0-18.0 [facility] Comment on above: Performed By: #### B MP #### [facility] [address] [address] [address] Brandon Hodges Urea nitrogen/Creatinine [Mass ratio] 25.0 mg/mg Normal [facility] Comment on above: Performed By: #### B MP #### [facility] [address] [address] [address] Brandon Hodges TESTOSTERONE, FREE,DIRECT, T OTALon 04-25-2022 Free Testosterone(Direct) <0.2 Normal 0.0-4.2 [facility] Comment on above: Result Comment: Perf ormed at: BN Performed By: #### I NSULIN #### [facility] [address] [address] [address] Brandon Hodges Testosterone [Mass/Vol] 3 ng/dL Critically low 4-50 [facility] Comment on above: Result Comment: Perf ormed at: CB Performed By: #### I NSULIN #### [facility] [address] [address] [address] Brandon Hodges ESTRONEon 04-23-2022 Estrone, Serum 20 pg/mL Normal [facility] Comment on above: Result Comment: Rang e Adult (Premenopausal) 27 - 231 Menstrual Cycle (1-10 days) 19 - 149 Menstrual Cycle (11-20 days) 32 - 176 Menstrual Cycle (21-30 days) 37 - 200 Adult (Postmenopausal) 0 - 125 Performed By: #### I NSULIN #### [facility] [address] [address] [address] Brandon Hodges REVERSE T3on 04-23-2022 Reverse T3, Serum 36.8 ng/dL Critically high 9.2-24.1 [facility] Comment on above: Result Comment: This test was developed and its performance characteristics determined by [facility] [facility]. It has not been cleared or approved by the Food and Drug Administration. Performed By: #### B MP #### [facility] [address] [place] [address] Dr. Brandon Hodges CORTISOLon 04-20-2022 Cortisol 1.0 ug/dL Normal [facility] Comment on above: Result Comment: Dakoat isol AM 6.2 - 19.4 Cortisol PM 2.3 - 11.9 Performed By: #### C ORTISO #### [facility] [address] [place] [address] Dr. Brandon Hodges DHEA-SULFATEon 04-20-2022 DHEA-Sulfate 55.9 ug/dL Normal 41.2-243.7 [facility] Comment on above: Performed By: #### I NSULIN #### [facility] [address] [place] [address] Dr. Brandon Hodges ESTRADIOLon 04-20-2022 Estradiol 25.1 pg/mL Normal [facility] Comment on above: Result Comment: Adul t Female: Follicular phase 12.5 - 166.0 Ovulation phase 85.8 - 498.0 Luteal phase 43.8 - 211.0 Postmenopausal <6.0 - 54.7 1st trimester 215.0 - >4300.0 Jason ECLIA methodology Performed By: #### B MP #### [facility] [address] [place] [address] Dr. Brandon Hodges INSULINon 04-20-2022 Insulin 30.0 uIU/mL Critically high 2.6-24.9 [facility] Comment on above: Performed By: #### I NSULIN #### [facility] [address] [place] [address] Dr. Brandon Hodges PROGESTERONEon 04-20-2022 Progesterone <0.1 Normal [facility] Comment on above: Result Comment: Foll icular phase 0.1 - 0.9 Luteal phase 1.8 - 23.9 Ovulation phase 0.1 - 12.0 First trimester 11.0 - 44.3 Second trimester 25.4 - 83.3 Third trimester 58.7 - 214.0 Postmenopausal 0.0 - 0.1 Performed By: #### B MP #### [facility] [address] [place] [address] Dr. Brandon Hodges SEX HORMONE-BINDING GLOBULIN on 04-20-2022 Sex Horm Binding Glob, Serum 30.3 nmol/L Normal 24.6-122.0 [facility] Comment on above: Performed By: #### B MP #### [facility] [address] [place] [address] Dr. Brandon Hodges FERRITINon 04-19-2022 Ferritin [Mass/Vol] 53.0 ng/mL Normal 6.2-137.[address] [facility] Comment on above: Performed By: #### B MP #### [facility] [address] [place] [address] Dr. Brandon Hodges FREE T3on 04-19-2022 FREE T3 2.34 pg/mlL Normal 2.18-3.98 [facility] Comment on above: Performed By: #### T SH, T4, FT3, BMP, LIPID, LIVER #### [facility] [address] [place] [address] Dr. Brandon Hodges FREE T4on 04-19-2022 Free T4 [Mass/Vol] 0.92 ng/dL Normal 0.76-1.[address] [facility] Comment on above: Performed By: #### B MP #### [facility] [address] [place] [address] Dr. Brandon Hodges GLYCOHEMOGLOBIN A1Con 2022 ADA RECOMMENDATION SEE BELOW Normal [facility] Comment on above: Result Comment: ADA RECOMMENDED LIMIT 4.0 - 6.0 ADA THERAPEUTIC TARGET < 7.0 ACTION SUGGESTED > 7.0 Performed By: #### A 1C #### [facility] [address] [place] [address] Dr. Brandon Hodges Glucose [Mass/Vol] 105 mg/dL Normal [facility] Comment on above: Performed By: #### A 1C #### [facility] [address] [address] [address] Brandon Hodges HbA1c (Bld) [Mass fraction] 5.3 % Normal 4.5-6.2 [facility] Comment on above: Performed By: #### A 1C #### [facility] [address] [address] [address] Brandon Hodges LIPID PROFILEon 04-19-2022 CHOL-HDL RATIO NORM SEE BELOW Normal [facility] Comment on above: Result Comment: 3.3 - 4.4 LOW RISK 4.4 - 7.1 AVERAGE RISK 7.1 - 11.0 MODERATE RISK >11.0 HIGH RISK Performed By: #### T SH, T4, FT3, BMP, LIPID, LIVER #### [facility] [address] [place] [address] Dr. Brandon Hodges Cholesterol [Mass/Vol] 258 mg/dL Critically high <=200 [facility] Comment on above: Performed By: #### T SH, T4, FT3, BMP, LIPID, LIVER #### [facility] [address] [address] [address] Brandon Hodges Cholesterol in HDL [Mass/Vol] 47 mg/dL Normal 40-60 [facility] Comment on above: Performed By: #### T SH, T4, FT3, BMP, LIPID, LIVER #### [facility] [address] [address] [address] Brandon Hodges Cholesterol in LDL [Mass/Vol] 199.0 mg/dL Normal [facility] Comment on above: Performed By: #### T SH, T4, FT3, BMP, LIPID, LIVER #### [facility] [address] [address] [address] Brandon Hodges Cholesterol.total/Chol esterol in HDL [Mass ratio] 5.5 {ratio} Normal [facility] Comment on above: Performed By: #### T SH, T4, FT3, BMP, LIPID, LIVER #### [facility] [address] [place] [address] Dr. Brandon Hodges HDL NORMAL > or = 60 mg/dl - LOW CARDIOVASCULAR RISK <40 mg/dl - HIGH CARDIOVASCULAR RISK Normal [facility] Comment on above: Performed By: #### T SH, T4, FT3, BMP, LIPID, LIVER #### [facility] [address] [place] [address] Dr. Brandon Hodges LDL CALC NORMAL SEE BELOW Normal [facility] Comment on above: Result Comment: <100 mg/dl OPTIMAL 100 - 129 mg/dl NEAR OR ABOVE OPTIMAL 130 - 159 mg/dl BORDERLINE HIGH 160 - 189 mg/dl HIGH >190 mg/dl VERY HIGH Performed By: #### T SH, T4, FT3, BMP, LIPID, LIVER #### [facility] [address] [address] [address] Brandon Hodges Triglyceride [Mass/Vol] 60 mg/dL Normal <=150 [facility] Comment on above: Performed By: #### T SH, T4, FT3, BMP, LIPID, LIVER #### [facility] [address] [address] [address] Brandon Hodges VLDL CALC 12.0 mg/dL Normal [facility] Comment on above: Performed By: #### T SH, T4, FT3, BMP, LIPID, LIVER #### [facility] [address] [address] [address] Brandon Hodges LIVER PROFILEon 04-19-2022 Albumin [Mass/Vol] 4.3 g/dL Normal 3.4-5.0 [facility] Comment on above: Performed By: #### T SH, T4, FT3, BMP, LIPID, LIVER #### [facility] [address] [place] [address] Dr. Brandon Hodges Albumin/Globulin [Mass ratio] 1.3 {ratio} Normal [facility] Comment on above: Performed By: #### T SH, T4, FT3, BMP, LIPID, LIVER #### [facility] [address] [place] [address] Dr. Brandon Hodges ALP [Catalytic activity/Vol] 86 U/L Normal 46-116 [facility] Comment on above: Performed By: #### T SH, T4, FT3, BMP, LIPID, LIVER #### [facility] [address] [place] [address] Dr. Brandon Hodges ALT [Catalytic activity/Vol] 31 U/L Normal 14-59 [facility] Comment on above: Performed By: #### T SH, T4, FT3, BMP, LIPID, LIVER #### [facility] [address] [place] [address] Dr. Brandon Hodges AST [Catalytic activity/Vol] 18 U/L Normal 15-37 [facility] Comment on above: Performed By: #### T SH, T4, FT3, BMP, LIPID, LIVER #### [facility] [address] [place] [address] Dr. Brandon Hodges BILI, CONJUGATED <0.1 Normal 0.0-0.2 [facility] Comment on above: Performed By: #### T SH, T4, FT3, BMP, LIPID, LIVER #### [facility] [address] [place] [address] Dr. Brandon Hodges Bilirubin [Mass/Vol] 0.3 mg/dL Normal 0.2-1.0 [facility] Comment on above: Performed By: #### T SH, T4, FT3, BMP, LIPID, LIVER #### [facility] [address] [place] [address] Dr. Brandon Hodges Globulin (S) [Mass/Vol] 3.4 g/dL Normal [facility] Comment on above: Performed By: #### T SH, T4, FT3, BMP, LIPID, LIVER #### [facility] [address] [place] [address] Dr. Brandon Hodges Protein [Mass/Vol] 7.7 g/dL Normal 6.4-8.2 [facility] Comment on above: Performed By: #### T SH, T4, FT3, BMP, LIPID, LIVER #### [facility] [address] [place] [address] Dr. Brandon Hodges PROF CHEM 8 (BAS METB)on Anion gap [Moles/Vol] 14.5 mmol/L Normal [facility] Comment on above: Performed By: #### T SH, T4, FT3, BMP, LIPID, LIVER #### [facility] [address] [address] [address] Brandon Hodges Calcium [Mass/Vol] 9.6 mg/dL Normal 8.5-10.1 [facility] Comment on above: Performed By: #### T SH, T4, FT3, BMP, LIPID, LIVER #### [facility] [address] [place] [address] Dr. Brandon Hodges Chloride [Moles/Vol] 108 mmol/L Critically high 98-107 [facility] Comment on above: Performed By: #### T SH, T4, FT3, BMP, LIPID, LIVER #### [facility] [address] [place] [address] Dr. Brandon Hodges CO2 [Moles/Vol] 26.1 mmol/L Normal 21.0-32.0 [facility] Comment on above: Performed By: #### T SH, T4, FT3, BMP, LIPID, LIVER #### [facility] [address] [place] [address] Dr. Brandon Hodges Creatinine [Mass/Vol] 0.75 mg/dL Normal 0.55-1.02 [facility] Comment on above: Performed By: #### T SH, T4, FT3, BMP, LIPID, LIVER #### [facility] [address] [place] [address] Dr. Brandon Hodges EGFR-AF LAO >60 Normal >=60 [facility] Comment on above: Performed By: #### T SH, T4, FT3, BMP, LIPID, LIVER #### [facility] [address] [place] [address] Dr. Brandon Hodges EGFR-NON AF LAO >60 Normal >=60 [facility] Comment on above: Performed By: #### T SH, T4, FT3, BMP, LIPID, LIVER #### [facility] [address] [place] [address] Dr. Brandon Hodges Glucose [Mass/Vol] 122 mg/dL Critically high 74-106 [facility] Comment on above: Performed By: #### T SH, T4, FT3, BMP, LIPID, LIVER #### [facility] [address] [address] [address] Brandon Hodges Potassium [Moles/Vol] 4.6 mmol/L Normal 3.5-5.1 [facility] Comment on above: Performed By: #### T SH, T4, FT3, BMP, LIPID, LIVER #### [facility] [address] [address] [address] Brandon Hodges Sodium [Moles/Vol] 144 mmol/L Normal 136-145 [facility] Comment on above: Performed By: #### T SH, T4, FT3, BMP, LIPID, LIVER #### [facility] [address] [place] [address] Dr. Brandon Hodges Urea nitrogen [Mass/Vol] 13.0 mg/dL Normal 7.0-18.0 [facility] Comment on above: Performed By: #### T SH, T4, FT3, BMP, LIPID, LIVER #### [facility] [address] [place] [address] Dr. Brandon Hodges Urea nitrogen/Creatinine [Mass ratio] 17.3 mg/mg Normal [facility] Comment on above: Performed By: #### T SH, T4, FT3, BMP, LIPID, LIVER #### [facility] [address] [place] [address] Dr. Brandon Hodges T4on 04-19-2022 T4 [Mass/Vol] 9.00 ug/dL Normal 4.80-13.90 [facility] Comment on above: Performed By: #### T SH, T4, FT3, BMP, LIPID, LIVER #### [facility] [address] [place] [address] Dr. Brandon Hodges TSHon 04-19-2022 TSH 0.335 uIU/mL Critically low 0.358-3.740 [facility] Comment on above: Performed By: #### T SH, T4, FT3, BMP, LIPID, LIVER #### [facility] [address] [place] [address] Dr. Brandon Hodges VITAMIN D 25 OHon 04-19-2022 VIT D 25-OH 29.4 ng/mL Normal [facility] Comment on above: Performed By: #### B MP #### [facility] [address] [id number] Brandon Hodges VIT D RANGES SEE BELOW Normal [facility] Comment on above: Result Comment: <20 ng/mL Vit D deficient 20 - <30 ng/mL Vit D insufficient 30 - 100 ng/mL Vit D sufficient >100 ng/mL Potential Toxicity Performed By: #### B MP #### [facility] [address] [place], [place] [address] Dr. Brandon Hodges MG MAMM SCREEN 3D KRISTI CADon 01-11-2022 MG MAMM SCREEN 3D KRISTI CAD Patient: AUDREY ISAACS Exam Date: 01/11/2022 : 1975 Gender:F Ordering : [facility] Admission #: [id number] Family : Order #: [id number] CLICK HERE TO VIEW EXAM RADIOLOGY REPORT [...] leukemia cancer at age 72. LOCATION: [facility] BREAST COMPOSITION: Heterogeneously dense,which may [...] Hollingsworth M.D. on 01/15/2022 at 12:03 Normal [facility] CHEMISTRYOrdered By: SYSTEM SYSTEM on [...] rate/Area] mL/min/1.73 m2 Normal >=59mL/min/1 .73 m2 [facility] [place] [place] Chem S GFR/1.73 sq M.predicted among non-blacks MDRD (S/P/Bld) [Vol rate/Area] mL/min/1.73 m2 Normal >=59mL/min/1 .73 m2 [facility] [place] [place] Chem S Glucose [Mass/Vol] 96 mg/dL Normal [...] 5.1 E9/L Normal 4.0 - 11.0 E9/L FT HemeAutoSS MRI Knee w/o Righton 022 MRI [...] by Colt Silvestre on 08/01/2021 1109 Normal [facility] [employer] THYROGLOBULINon 06-24-2021 Thyroglobulin 3.9 ng/mL Normal [facility] Comment on [...] ng/mL. Performed By: #### B MP #### [facility] [address] [place] [address] Dr. Brandon Hodges RENITA by IFAon 06-18-2021 Antinuclear Antibodies, IFA Negative Normal [facility] Comment on above: Result Comment: Nega tive <1:80 Borderline 1:80 Positive >1:80 ICAP nomenclature: AC-0 For more information about Hep-2 cell patterns use ANApatterns.org, the official website for the International Consensus on Antinuclear Antibody (RENITA) Patterns (ICAP). Performed By: #### I NSULIN #### [facility] [address] [place] [address] Dr. Brandon Hodges ANTISTREPTOLYSIN O AB (ASO)o n 06-16-2021 Antistreptolysin O Ab 108.1 IU/mL Normal 0.0-200.0 [facility] Comment on above: Performed By: #### I NSULIN #### [facility] [address] [place] [address] Dr. Brandon Hodges RHEUMATOID FACTORon 06-17-19 RA Latex Turbid. 11.1 IU/mL Normal <14.0 [facility] Comment on above: Performed By: #### I NSULIN #### [facility] [address] [place] [address] Dr. Brandon Hodges CBC AUTO DIFFon 06-15-2021 BASO # 0.0 103/ul Normal 0.0-0.1 [facility] Comment on above: Performed By: #### I NSULIN #### [facility] [address] [place] [address] Dr. Brandon Hodges Basophils/100 WBC (Bld) 0.4 % Normal 0.2-2.0 [facility] Comment on above: Performed By: #### I NSULIN #### [facility] [address] [place] [address] Dr. Brandon Hodges EO # 0.0 103/ul Normal 0.0-0.7 [facility] Comment on above: Performed By: #### I NSULIN #### [facility] [address] [place] [address] Dr. Brandon Hodges Eosinophils/100 WBC (Bld) 0.7 % Critically low 0.9-7.0 [facility] Comment on above: Performed By: #### I NSULIN #### [facility] [address] [place] [address] Dr. Brandon Hodges Erythrocyte distribution width (RBC) [Ratio] 12.8 % Normal 11.0-15.0 [facility] Comment on above: Performed By: #### I NSULIN #### [facility] [address] [place] [address] Dr. Brandon Hodges Hematocrit (Bld) [Volume fraction] 43.3 % Normal 36.0-48.0 [facility] Comment on above: Performed By: #### I NSULIN #### [facility] [address] [place] [address] Dr. Brandon Hodges Hemoglobin (Bld) [Mass/Vol] 14.1 g/dL Normal 12.0-16.0 [facility] Comment on above: Performed By: #### I NSULIN #### [facility] [address] [place] [address] Dr. Brandon Hodges IG # 0.00 10e3/ul Normal 0.00-0.03 [facility] Comment on above: Performed By: #### I NSULIN #### [facility] [address] [place] [address] Dr. Brandon Hodges IG % 0.0 % Normal 0.0-0.5 [facility] Comment on above: Performed By: #### I NSULIN #### [facility] [address] [place] [address] Dr. Brandon Hodges LYMPH # 1.6 103/ul Normal 1.2-3.8 [facility] Comment on above: Performed By: #### I NSULIN #### [facility] [address] [place] [address] Dr. Brandon Hodges Lymphocytes/100 WBC (Bld) 35.1 % Normal 20.5-60.0 [facility] Comment on above: Performed By: #### I NSULIN #### [facility] [address] [place] [address] Dr. Brandon Hodges MANUAL DIFF REQ NO Normal [facility] Comment on above: Performed By: #### I NSULIN #### [facility] [address] [place] [address] Dr. Brandon Hodges MCH (RBC) [Entitic mass] 29.4 pg Normal 26.7-34.0 [facility] Comment on above: Performed By: #### I NSULIN #### [facility] [address] [place] [address] Dr. Brandon Hodges MCHC (RBC) [Mass/Vol] 32.6 g/dL Normal 29.9-35.2 [facility] Comment on above: Performed By: #### I NSULIN #### [facility] [address] [place] [address] Dr. Brandon Hodges MCV (RBC) [Entitic vol] 90.2 fL Normal 81.0-99.0 [facility] Comment on above: Performed By: #### I NSULIN #### [facility] [address] [place] [address] Dr. Brandon Hodges MONO # 0.3 103/ul Normal 0.3-0.8 [facility] Comment on above: Performed By: #### I NSULIN #### [facility] [address] [place] [address] Dr. Brandon Hodges Monocytes/100 WBC (Bld) 6.8 % Normal 1.7-12.0 [facility] Comment on above: Performed By: #### I NSULIN #### [facility] [address] [place] [address] Dr. Brandon Hodges NEUT # 2.6 103/ul Normal 1.4-6.5 [facility] Comment on above: Performed By: #### I NSULIN #### [facility] [address] [place] [address] Dr. Brandon Hodges Neutrophils/100 WBC (Bld) 57.0 % Normal 43.0-75.0 [facility] Comment on above: Performed By: #### I NSULIN #### [facility] [address] [place] [address] Dr. Brandon Hodges Platelet mean volume (Bld) [Entitic vol] 10.8 fL Normal 9.5-13.5 [facility] Comment on above: Performed By: #### I NSULIN #### [facility] [address] [place] [address] Dr. Brandon Hodges PLT 220 103/ul Normal 150-450 [facility] Comment on above: Performed By: #### I NSULIN #### [facility] [address] [place] [address] Dr. Brandon Hodges RBC 4.80 106/ul Normal 4.20-5.40 [facility] Comment on above: Performed By: #### I NSULIN #### [facility] [address] [place] [address] Dr. Brandon Hodges WBC 4.6 103/ul Normal 4.0-11.0 [facility] Comment on above: Performed By: #### I NSULIN #### [facility] [address] [place] [address] Dr. Brandon Hodges CRPon 06-15-2021 CRP [Mass/Vol] mg/L Normal <=1.0 [facility] Comment on above: Performed By: #### T SH, T4, FT3, BMP, LIPID, LIVER #### [facility] [address] [place] [address] Dr. Brandon Hodges FREE T4on 06-15-2021 Free T4 [Mass/Vol] 0.86 ng/dL Normal 0.76-1.46 [facility] Comment on above: Performed By: #### I NSULIN #### [facility] [address] [place] [address] Dr. Brandon Hodges LIPID PROFILEon 06-15-2021 CHOL-HDL RATIO NORM SEE BELOW Normal [facility] Comment on above: Result Comment: 3.3 - 4.4 LOW RISK 4.4 - 7.1 AVERAGE RISK 7.1 - 11.0 MODERATE RISK >11.0 HIGH RISK Performed By: #### T SH, T4, FT3, BMP, LIPID, LIVER #### [facility] [address] [address] [address] Brandon Hodges Cholesterol [Mass/Vol] 211 mg/dL Critically high <=200 [facility] Comment on above: Performed By: #### T SH, T4, FT3, BMP, LIPID, LIVER #### [facility] [address] [address] [address] Brandon Hodges Cholesterol in HDL [Mass/Vol] 37 mg/dL Critically low 40-60 [facility] Comment on above: Performed By: #### T SH, T4, FT3, BMP, LIPID, LIVER #### [facility] [address] [place] [address] Dr. Brandon Hodges Cholesterol in LDL [Mass/Vol] 151.4 mg/dL Normal [facility] Comment on above: Performed By: #### T SH, T4, FT3, BMP, LIPID, LIVER #### [facility] [address] [address] [address] Brandon Hodges Cholesterol.total/Chol esterol in HDL [Mass ratio] 5.7 {ratio} Normal [facility] Comment on above: Performed By: #### T SH, T4, FT3, BMP, LIPID, LIVER #### [facility] [address] [place] [address] Dr. Brandon Hodges HDL NORMAL > or = 60 mg/dl - LOW CARDIOVASCULAR RISK <40 mg/dl - HIGH CARDIOVASCULAR RISK Normal [facility] Comment on above: Performed By: #### T SH, T4, FT3, BMP, LIPID, LIVER #### [facility] [address] [address] [address] Brandon Hodegs LDL CALC NORMAL SEE BELOW Normal [facility] Comment on above: Result Comment: <100 mg/dl OPTIMAL 100 - 129 mg/dl NEAR OR ABOVE OPTIMAL 130 - 159 mg/dl BORDERLINE HIGH 160 - 189 mg/dl HIGH >190 mg/dl VERY HIGH Performed By: #### T SH, T4, FT3, BMP, LIPID, LIVER #### [facility] [address] [place] [address] Dr. Brandon Hodges Triglyceride [Mass/Vol] 113 mg/dL Normal <=150 [facility] Comment on above: Performed By: #### T SH, T4, FT3, BMP, LIPID, LIVER #### [facility] [address] [place] [address] Dr. Brandon Hodges VLDL CALC 22.6 mg/dL Normal [facility] Comment on above: Performed By: #### T SH, T4, FT3, BMP, LIPID, LIVER #### [facility] [address] [place] [address] Dr. Brandon Hodges PROF 14(COMP METB)on 022 Albumin [Mass/Vol] 3.8 g/dL Normal 3.4-5.0 [facility] Comment on above: Performed By: #### T SH, T4, FT3, BMP, LIPID, LIVER #### [facility] [address] [place] [address] Dr. Brandon Hodges Albumin/Globulin [Mass ratio] 1.2 {ratio} Normal [facility] Comment on above: Performed By: #### T SH, T4, FT3, BMP, LIPID, LIVER #### [facility] [address] [place] [address] Dr. Brandon Hodges ALP [Catalytic activity/Vol] 75 U/L Normal 46-116 [facility] Comment on above: Performed By: #### T SH, T4, FT3, BMP, LIPID, LIVER #### [facility] [address] [place] [address] Dr. Brandon Hodges ALT [Catalytic activity/Vol] 26 U/L Normal 14-59 [facility] Comment on above: Performed By: #### T SH, T4, FT3, BMP, LIPID, LIVER #### [facility] [address] [place] [address] Dr. Brandon Hodges Anion gap [Moles/Vol] 10.2 mmol/L Normal [facility] Comment on above: Performed By: #### T SH, T4, FT3, BMP, LIPID, LIVER #### [facility] [address] [place] [address] Dr. Brandon Hodges AST [Catalytic activity/Vol] 10 U/L Critically low 15-37 [facility] Comment on above: Performed By: #### T SH, T4, FT3, BMP, LIPID, LIVER #### [facility] [address] [place] [address] Dr. Brandon Hodges Bilirubin [Mass/Vol] 0.4 mg/dL Normal 0.2-1.0 [facility] Comment on above: Performed By: #### T SH, T4, FT3, BMP, LIPID, LIVER #### [facility] [address] [place] [address] Dr. Brandon Hodges Calcium [Mass/Vol] 8.3 mg/dL Critically low 8.5-10.1 [facility] Comment on above: Performed By: #### T SH, T4, FT3, BMP, LIPID, LIVER #### [facility] [address] [place] [address] Dr. Brandon Hodges Chloride [Moles/Vol] 103 mmol/L Normal 98-107 [facility] Comment on above: Performed By: #### T SH, T4, FT3, BMP, LIPID, LIVER #### [facility] [address] [place] [address] Dr. Brandon Hodges CO2 [Moles/Vol] 28.8 mmol/L Normal 21.0-32.0 [facility] Comment on above: Performed By: #### T SH, T4, FT3, BMP, LIPID, LIVER #### [facility] [address] [place] [address] Dr. Brandon Hodges Creatinine [Mass/Vol] 0.81 mg/dL Normal 0.55-1.02 [facility] Comment on above: Performed By: #### T SH, T4, FT3, BMP, LIPID, LIVER #### [facility] [address] [place] [address] Dr. Brandon Hodges EGFR-AF LAO >60 Normal >=60 [facility] Comment on above: Performed By: #### T SH, T4, FT3, BMP, LIPID, LIVER #### [facility] [address] [address] [address] Brandon Hodges EGFR-NON AF LAO >60 Normal >=60 [facility] Comment on above: Performed By: #### T SH, T4, FT3, BMP, LIPID, LIVER #### [facility] [address] [address] [address] Brandon Hodges Globulin (S) [Mass/Vol] 3.1 g/dL Normal [facility] Comment on above: Performed By: #### T SH, T4, FT3, BMP, LIPID, LIVER #### [facility] [address] [place] [address] Dr. Brandon Hodges Glucose [Mass/Vol] 95 mg/dL Normal 74-[address] [facility] Comment on above: Performed By: #### T SH, T4, FT3, BMP, LIPID, LIVER #### [facility] [address] [place] [address] Dr. Brandon Hodges Potassium [Moles/Vol] 3.9 mmol/L Normal 3.5-5.1 [facility] Comment on above: Performed By: #### T SH, T4, FT3, BMP, LIPID, LIVER #### [facility] [address] [address] [address] Brandon Hodges Protein [Mass/Vol] 6.9 g/dL Normal 6.1-8.[address] [facility] Comment on above: Performed By: #### T SH, T4, FT3, BMP, LIPID, LIVER #### [facility] [address] [place] [address] Dr. Brandon Hodges Sodium [Moles/Vol] 138 mmol/L Normal 136-[address] [facility] Comment on above: Performed By: #### T SH, T4, FT3, BMP, LIPID, LIVER #### [facility] [address] [place] [address] Dr. Brandon Hodges Urea nitrogen [Mass/Vol] 20.0 mg/dL Critically high 7.0-18.0 [facility] Comment on above: Performed By: #### T SH, T4, FT3, BMP, LIPID, LIVER #### [facility] [address] [place] [address] Dr. Brandon Hodges Urea nitrogen/Creatinine [Mass ratio] 24.7 mg/mg Normal [facility] Comment on above: Performed By: #### T SH, T4, FT3, BMP, LIPID, LIVER #### [facility] [address] [place] [address] Dr. Brandon Hodges SED RATE WESTERGRENon 2021 SED RATE <1 Normal <=20 [facility] Comment on above: Performed By: #### B MP #### [facility] [address] [place] [address] Dr. Brandon Hodges TSHon 06-15-2021 TSH 1.006 uIU/mL Normal 0.470-4.680 [facility] Comment on above: Performed By: #### T SH, T4, FT3, BMP, LIPID, LIVER #### [facility] [address] [place] [address] Dr. Brandon Hodges TSH RANGE SEE BELOW Normal [facility] Comment on above: Result Comment: <0.3 4 UIU/ml HYPERTHYROID 0.34-5.60 UIU/ml EUTHYROID >5.60 UIU/ml HYPOTHYROID Performed By: #### T SH, T4, FT3, BMP, LIPID, LIVER #### [facility] [address] [place] [address] Dr. Brandon Hodges URIC ACID SERUMon 06-15-2021 Urate [Mass/Vol] 4.2 mg/dL Normal 2.5-6.2 [facility] Comment on above: Performed By: #### T SH, T4, FT3, BMP, LIPID, LIVER #### [facility] [address] [place] [address] Dr. Brandon Hodges VITAMIN D 25 OHon 06-15-2021 VIT D 25-OH 47.6 ng/mL Normal [facility] Comment on above: Performed By: #### B MP #### [facility] [address] [place] [address] Dr. Brandon Hodges VIT D RANGES SEE BELOW Normal [facility] Comment on above: Result Comment: <20 ng/mL Vit D deficient 20 - <30 ng/mL Vit D insufficient 30 - 100 ng/mL Vit D sufficient >100 ng/mL Potential Toxicity Performed By: #### B #### [facility] [address] [place] [address] Dr. Brandon Hodges XR KNEE KRISTI 3 [...] DOUGLAS SOLANO Date: 2021-06-14 13:35 Normal [facility] Vital Signs Date Time Vital Sign Value Performing Clinician Faci john pauly 12-04-2023 09:33-0400 Body height 177.8 cm Yesica Krishan [employer] Work Phone: [facility] 12-04-2023 09:33-0400 Body mass index (BMI) [Ratio] 33.23 kg/m2 Yesica Krishan [employer] Work Phone: [facility] 12-04-2023 09:33-0400 Body temperature 98.8 [degF] Yesica Krishan [employer] Work Phone: [facility] 12-04-2023 09:33-0400 Body weight 105.05 kg Yesica Krishan [employer] Work Phone: [facility] 12-04-2023 09:33-0400 Diastolic blood pressure 82 mm[Hg] Yesica Nickerson [employer] Work Phone: [facility] 12-04-2023 09:33-0400 Heart rate 70 /min Yesica Nickerson [employer] Work Phone: [facility] 12-04-2023 09:33-0400 Respiratory rate 18 /min Yesica Nickerson [employer] Work Phone: [facility] 12-04-2023 09:33-0400 SaO2% (BldA) [Mass fraction] 99 % Yesica Nickerson [employer] Work Phone: [facility] 12-04-2023 09:33-0400 Systolic blood pressure 132 mm[Hg] Yesica Nickerson [employer] Work Phone: [facility] 09-23-2023 13:00-0400 Diastolic blood pressure 85 mm[Hg] Boby Ballesterose [facility] 09-23-2023 13:00-0400 Heart rate 69 /min Boby Mart [facility] 09-23-2023 13:00-0400 Mean blood pressure 99 mm[Hg] Boby Mart [facility] 09-23-2023 13:00-0400 Respiratory rate 16 /min Boby Mart [facility] 09-23-2023 13:00-0400 SaO2% (BldA) [Mass fraction] 98 % Boby Mart [facility] 09-23-2023 13:00-0400 Systolic blood pressure 127 mm[Hg] Boby Mart [facility] 09-23-2023 12:00-0400 Diastolic blood pressure 82 mm[Hg] Boby Mart [facility] 09-23-2023 12:00-0400 Heart rate 68 /min Boby Mart [facility] 09-23-2023 12:00-0400 Mean blood pressure 94 mm[Hg] Boby Mart [facility] 09-23-2023 12:00-0400 SaO2% (BldA) [Mass fraction] 96 % Boby Mart [facility] 09-23-2023 12:00-0400 Systolic blood pressure 119 mm[Hg] Boby Cevallos [facility] 09-23-2023 11:05-0400 gluc 89 mg/dL Boby Ballesterose [facility] 09-23-2023 11:05-0400 gluc Boby Cevallos [facility] 09-23-2023 10:59-0400 Body temperature 98.6 [degF] Boby Cevallos [facility] 09-23-2023 10:59-0400 Diastolic blood pressure 96 mm[Hg] Boby Cevallos [facility] 09-23-2023 10:59-0400 Heart rate 84 /min Boby Cevallos [facility] 09-23-2023 10:59-0400 Respiratory rate 18 /min Boby Cevallos [facility] 09-23-2023 10:59-0400 SaO2% (BldA) [Mass fraction] 99 % Boby Cevallos [facility] 09-23-2023 10:59-0400 Systolic blood pressure 140 mm[Hg] Boby Cevallos [facility] 01-20-2023 17:00-0500 Body height 176.53 cm Tika Otero Other [facility] Other 01-20-2023 17:00-0500 Body mass index (BMI) [Ratio] 33.85 kg/m2 Tika Otero Other [facility] Other 01-20-2023 17:00-0500 Body temperature 98 [degF] Tika Otero Other [facility] Other 01-20-2023 17:00-0500 Body weight 105.51 kg Tika Otero Other [facility] Other 01-20-2023 17:00-0500 Respiratory rate 18 /min Tika Otero Other [facility] Other 01-20-2023 17:00-0500 SaO2% (BldA) [Mass fraction] 99 % Tika Otero Other [facility] Other 06-11-2022 15:50-0400 Body height 176.53 cm Elise Stone Other [facility] Other 06-11-2022 15:50-0400 Body mass index (BMI) [Ratio] 36.39 kg/m2 Elise Stone Other [facility] Other 06-11-2022 15:50-0400 Body temperature 97.3 [degF] Elise Stone Other [facility] Other 06-11-2022 15:50-0400 Body weight 113.4 kg Elise Stone Other [facility] Other 06-11-2022 15:50-0400 Respiratory rate 18 /min Elise Stone Other [facility] Other 06-11-2022 15:50-0400 SaO2% (BldA) [Mass fraction] 99 % Elise Stone Other [facility] Other 02-28-2022 15:11-0500 [facility] 02-28-2022 15:11-0500 Diastolic blood pressure 80 mm[Hg] Juancarlos Christofferson [facility] 02-28-2022 15:11-0500 Heart rate 84 /min Juancarlos Christofferson [facility] 02-28-2022 15:11-0500 Respiratory rate 18 /min Juancarlos Christofferson [facility] 02-28-2022 15:11-0500 SaO2% (BldA) [Mass fraction] 96 % Juancarlos Christofferson [facility] 02-28-2022 15:11-0500 Systolic blood pressure 140 mm[Hg] Juancarlos Christofferson [facility] 11-19-2021 15:13-0400 Blood Pressure Location Juancarlos Christofferson [facility] 11-19-2021 15:13-0400 Diastolic blood pressure 75 mm[Hg] Juancarlos Christofferson [facility] 11-19-2021 15:13-0400 Heart rate 86 /min Juancarlos Christofferson [facility] 11-19-2021 15:13-0400 Respiratory rate 18 /min Juancarlos Christofferson [facility] 11-19-2021 15:13-0400 SaO2% (BldA) [Mass fraction] 96 % Juancarlos Christofferson [facility] 11-19-2021 15:13-0400 Systolic blood pressure 126 mm[Hg] Juancarlos Christofferson [facility] Encounters Encounter Date Encounter Type Care Provider Facility Start: 12-25-2023 End: 12-25-2023 Patient encounter procedure Radhika Quispe MD Work Phone: [facility] Comment on above: 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); Ptosis of both eyelids Start: 12-25-2023 End: 12-25-2023 ambulatory RADHIKA QUISPE Not Available Start: 12-04-2023 End: 12-04-2023 Patient encounter procedure Yesica Devonpatienceulisses Work Phone: [facility] [address] Work Phone: Start: 12-04-2023 End: 12-04-2023 ambulatory Yesica Mckeon Devonpatienceulisses Work Phone: [facility] Work Phone: Start: 12-04-2023 End: 12-04-2023 Bamboo flowsheet Yesica Krishan [employer] Work Phone: [facility] Start: 12-04-2023 End: 12-04-2023 Bamboo flowsheet Yesica Devonpatiencestephz [employer] Work Phone: [facility] Start: 12-04-2023 End: 12-04-2023 ambulatory YESICA AICHHOLZ Not Available Start: 12-04-2023 End: 12-04-2023 Office outpatient visit 15 minutes Yesica Devonpatienceulisses [employer] Work Phone: [facility] Comment on [...] Available Start: 09-25-2023 End: 09-25-2023 ambulatory SUNNI Wilner MATHEW Not Available Start: 09-24-2023 End: 09-24-2023 ambulatory YESICA AICHHOLZ Not Available Start: 09-23-2023 End: 09-23-2023 Emergency department patient visit Boby Cevallos [facility] Start: 08-05-2023 End: 08-05-2023 ambulatory YESICAWilner PASTRANAHOLZ Not Available Start: 05-27-2023 End: 05-27-2023 ambulatory ZEESHAN BENSON Not Available Start: 04-29-2023 End: 04-29-2023 ambulatory YESICA AICHHOLZ Not Available Start: 01-20-2023 End: 01-20-2023 ambulatory Tika Otero Other [facility] Other Start: 01-20-2023 Office outpatient vi sit 15 minutes Tikashun Otero [facility] Start: 06-28-2022 End: 06-28-2022 ambulatory Yesica Pastranaholchristine Work Phone: [facility] Work Phone: Start: 06-28-2022 End: 06-28-2022 Discharged Recurring Yesica Pastranaholchristine Work Phone: [facility] Work Phone: Start: 06-11-2022 End: 06-11-2022 ambulatory Elise Stone Other [place] [employer] Other Start: 06-11-2022 Office outpatient ne w 30 minutes Elise Stone [facility] Start: 05-18-2022 End: 05-19-2022 ambulatory MATTE CUTTER YESICA AICHHOLZ Facility:[facility] Start: 04-19-2022 End: 04-20-2022 ambulatory MATTE CUTTER YESICA AICHHOLZ Facility:[facility] Start: 02-28-2022 End: 02-28-2022 Patient encounter procedure Juancarlos Giraldo [facility] Start: 01-11-2022 End: 01-12-2022 ambulatory MATTE CUTTER YESICA AICHHOLZ Facility:[facility] Start: 11-29-2021 End: 03-03-2022 Preprocedural examination done Zeeshan Benson [facility] Start: 11-29-2021 End: 03-03-2022 Recurring Zeeshan Benson [facility] Start: 11-19-2021 End: 11-19-2021 Patient encounter procedure Juancarlos Giraldo [facility] Start: 08-17-2021 End: 08-17-2021 Patient encounter procedure Zeeshan Benson [facility] Start: 06-15-2021 End: 06-16-2021 ambulatory MATTE CUTTER YESICA PASTRANASTEPHChristine Facility:[facility] Start: 06-14-2021 End: 06-15-2021 ambulatory MATTE CUTTER YESICA DEVONPatienceULISSES Facility:[facility] Procedures Date Procedure Procedure Detail Performing Clinician Start: 05-12-2023 Mammography Yesica white NP Work Phone: Plan of Treatment Date Care Activity Detail Author Start: 05-11-2026 Screening for malign ant neoplasm of colon [facility] Start: 05-11-2024 Screening for malign ant neoplasm of breast Mammogram [facility] Start: 01-08-2024 End: 01-08-2024 Patient encounter procedure 01/08/2024 9:30 AM EST Office Visit [facility] [address] [place] [address] Radhkia Quispe MD [address] [place] [address] [facility] Start: 12-25-2023 End: 12-25-2023 Patient encounter procedure 12/25/2023 3:00 PM EST Procedure Visit [facility] [address] [place] [address] Radhika Quispe MD [address] [place] [address] [phone] (work) [facility] Start: 12-04-2023 Hemolytic complement CH50 level [facility] Start: 06-01-2005 Screening for malign ant neoplasm of cervix HPV/Cotest [facility] Start: 06-01-1996 Screening for malign ant neoplasm of cervix Pap Smear [facility] Start: 1975 Screening for malign ant neoplasm of colon [facility] Complement C3 [Mass/volume] in Serum or Plasma [facility] Complement C4 [Mass/volume] in Serum or Plasma [facility] Payers Date Payer Category Payer Self-pay [id number] 2021 [facility] er .[id number] 1975 Unknown [id number] 2.16.840.1.341634.3.579 .2.593 1975 Unknown [id number] 2.16.840.1.996329.3.579 .2.593 1975 Unknown [id number] 2.16.840.1.480748.3.579 .2.593 1975 Unknown [id number] 2.16.840.1.190770.3.579 .2.593 1975 Unknown [id number] 2.16.840.1.584594.3.579 .2.593 1975 Unknown [id number] 2.16.840.1.483114.3.579 .2.727 1975 Unknown [id number] 2.16.840.1.152997.3.579 .2.727 1975 Unknown [id number] 2.16.840.1.736972.3.579 .2.1258 1975 Unknown [id number] 2.16.840.1.386346.3.579 .2.1258 1975 Unknown [id number] 2.16.840.1.500305.3.579 .2.1258 1975 Unknown [id number] 2.16.840.1.538823.3.579 .2.1258 1975 Unknown [id number] 2.16.840.1.439013.3.579 .2.1258 1975 Unknown [id number] 2.16.840.1.727630.3.579 .2.1258 1975 Unknown [id number] 2.16.840.1.154846.3.579 .2.1258 1975 Unknown [id number] 2.16.840.1.836206.3.579 .2.1258 1975 Unknown [id number] 2.16.840.1.535143.3.579 .2.1258 1975 Unknown [id number] 2.16.840.1.359925.3.579 .2.9 1959 Unknown [id number] Private Health Insurance [employer] [id number] Unknown [id number] [id number] .2.531 Social History Date Type Detail Facility Tobacco smoking status No Smokin g Status Entered [facility] Start: 04-28-2023 End: 04-29-2023 Sex Assigned At Female [facility] Start: 02-28-2022 Tobacco smoking status Light t obacco smoker (finding) [facility] Start: 1975 Sex Assigned At Female F [facility] Start: 10-16-2023 Tobacco smoking stat [facility] Smokes tobacco daily [facility] History of tobacco use Cigarette Smoker [facility] Start: 04-28-2023 End: 10-16-2023 Cigarettes smoked current (pack per day) - Reported 0.5 [facility] Start: 10-30-2023 End: 12-04-2023 Alcoholic beverage intake Ex-drinker (finding) [facility] Do you belong to any clubs or organizations such as hoahaoism groups, unions, fraternal or athletic groups, or [...] Alcohol Comment 2-4 times a month NO [facility] Start: 1975 Sex assigned at Not on file [facility] Start: 04-09-2018 [facility] Functional Status Date Assessment Result Facility 09-23-2023 Functional Status N/A [facility] 02-28-[address] [facility] 11-19-2021 Functional Status N/A [facility] Clinical Notes 06-11-2022 to 12-25-2023 Radhika Quispe MD - 12/25/2023 3:00 PM Zohra Nickerson NP - 12/04/2023 10:22 AM BETTYashley Pastranastephchristine, ERICH - 12/04/2023 10:22 AM EDYONASashley Devonpatiencestephchristine, ERICH - 12/04/2023 10:22 AM EDT Note Date & Type Note Facility 12-25-2023 History of Present illness Narrative Assessment/Plan SURGEON: Radhika Quispe MD PREOPERATIVE DIAGNOSIS: Dermatochalasis POSTOPERATIVE DIAGNOSIS: Same ANESTHESIA: Local PROCEDURE: Blepharoplasty upper lid, both eyes The patient was brought to the out-patient operating room and given a local anesthetic injection of 2% lidocaine with epinephrine. Approximately 1.5cc was injected across the breadth of the lid at the level of the superior tarsal margin. 15 minutes was allowed to elapse for hemostasis purposes. The eyes were then prepped and draped in the usual sterile fashion. A curvilinear vasiliy was placed 6mm superior to the lid margin. The excess skin was measured using forceps and this was also marked. A number 15 blade was then used to open the skin and orbicularis muscle. A skin muscle flap was developed and using sharp dissection technique the flap was cut away from the underlying tissue.There was some minimal to moderate lipid also removed to achieve symmetry with the contra-lateral side. The brow ptosis was addressed by dissecting superiorly above the orbital rim bluntly with first a cotton tip swab then cutting bovie to the level of the occipito-frontalis fascia. A 4-0 mersilene suture was then anchored through the fascia and attached to the orbicularis to elevate the lateral brow. Complete hemostasis was achieved with bipolar cauterization. The skin and orbicularis muscle were then closed using running 6-0 prolene suture. In a similar fashion in the opposite eye, the skin was marked and opened. A flap developed and excised. The brow dissected and elevated. The skin closed and dressed with topical antibiotic ointment. A ice compress was applied for ten minutes. The patient left the OR in good condition with instruction to rest at home the remainder of the day with intermittant icing of the wound. Radhika Quispe MD documented in this encounter [facility] 12-04-2023 History of Present illness Narrative Associated Problem(s): Tobacco user Vapes The patient has been advised of the risks of continued smoking: stroke, RI, all forms of cancer, lung disease, and [...] Medical History: Diagnosis Date Anxiety and depression ([facility]) 04/29/2023 Arthritis Bilateral chronic knee pain 04/29/2023 Bunion Dry eyes Dysmenorrhea Dyspareunia, female 04/29/2023 Fibromyalgia 04/29/2023 GERD without esophagitis Headache 06/17/2007 Low serum cortisol level 04/29/2023 Lymphedema of left arm Menopause ovarian failure 04/29/2023 Menorrhagia with irregular cycle Migraines (CMS/HCC) 04/29/2023 BRITTANY (obstructive sleep apnea) 04/29/2023 Pelvic pain in female Plantar fasciitis Tear of meniscus of knee Thoracic outlet syndrome 04/29/2023 Tobacco user 04/29/2023 Past Surgical History: Procedure Laterality Date BELT ABDOMINOPLASTY 2005 Tummy tuck BREAST BIOPSY Procedure:Breast biopsy kristi benign BUNIONECTOMY CHOLECYSTECTOMY 2004 HERNIA REPAIR 1978 HYSTERECTOMY 05/04/2019 KNEE ARTHROSCOPY W/ DEBRIDEMENT Right 12/07/2021 MTP MENISCECTOMY OOPHORECTOMY 2003 OTHER SURGICAL HISTORY Exc lymph node left [...] of the risks of continued smoking: stroke, RI, all forms of cancer, lung disease, and [...] down from 40mg documented in this encounter [facility] 09-23-2023 Hospital Discharge instructions Patient Education 09/23/2023 [...] balance is good. 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 Take camz-whp-mjzziws and prescription medicines only as told by [...] provider. Document Revised: 01/08/2021 Document Reviewed: 01/08/2021 [employer] Patient Education 2022 [employer]. Follow Up Care 09/23/2023 10:55:56 With:YESICA NICKERSON Address: [address] [place] [address] [phone] Business (1) When:09/26/2023 12:52:48 [facility] 09-23-2023 Note ED Patient Education Note [...] is good. ? 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 ? Take txmi-qmv-xqhllic and prescription medicines only as told by [...] provider. Document Revised: 01/08/2021 Document Reviewed: 01/08/2021 [employer] Patient Education ? 2022 [employer]. [facility] 01-20-2023 Evaluation note Encounter Date Diagnosis [...] no improvement in 2 to 3 days [facility] Other 04-25-2023 Evaluation note* Encounter Date Diagnosis [...] understanding and is agreeable with treatment plan. [facility] Other Evaluation + Plan note No data available for this section [facility] Future Appointments Appointment Date:02/28/2022 03:15:00 PM Scheduled Provider:Juancarlos Giraldo MD Location:.[facility]iology Clinic Appointment Type:Cardiology [facility] (FT) [facility] assessment information available [facility] Work Phone: Evaluation note* Diagnosis Bilateral [...] esophagitis Esophageal reflux documented in this encounter [facility] Healthcare[facility]* Diagnosis Bilateral lower extremity edema- Primary [...] Gastroesophageal reflux disease without esophagitis Esophageal reflux Dermatochalasis of both upper eyelids- Primary Ptosis of both eyelids Unspecified ptosis of eyelid documented in this encounter [facility] HealthcareHistory general Narrative - Reported* Type Description Date Medical History Anxiety Medical History History of muscle spasm Medical History acid reflux Surgical History tonsillectomy Surgical History hernia Surgical History cholecystectomy Surgical History oophorectomy Surgical History Tummy Tuck Surgical History lymph node resection left axill vianney Surgical History hysterectomy 04/2019 Surgical History knee surgery 10/2021 Hospitalization History see above [facility] Other History general Narrative - Reported* Type Description Date Medical History Anxiety Medical History History of muscle spasm Medical History acid reflux Medical History high cholesterol Surgical History tonsillectomy Surgical History hernia Surgical History cholecystectomy Surgical History oophorectomy Surgical History Tummy Tuck Surgical History lymph node resection left axill vianney Surgical History hysterectomy 04/2019 Surgical History knee surgery 10/2021 Hospitalization History see above [facility] Other Hospital Discharge instructions No data available for this section [facility] No data available for this section [facility] Summary Purpose Family History No Family [...] section and content) DATE CREATED AUTHOR 08/02/2021 [facility] DATE CREATED AUTHOR AUTHOR'S ORGANIZ ATION 05/25/2022 [facility] DATE CREATED AUTHOR AUTHOR'S ORGANIZ ATION 09/25/2023 [facility] DATE CREATED AUTHOR AUTHOR'S ORGANIZ ATION 09/30/2023 [facility] DATE CREATED AUTHOR AUTHOR'S ORGANIZ ATION 12/15/2023 [facility] DATE CREATED AUTHOR AUTHOR'S ORGANIZ ATION 12/27/2023 [facility] EPIC Care Team (unrecognized sect ion and content) Team Status: Active Member Role Status Dates Yesica Nickerson Primary Care Provider Active Team Status: Inactive Member Role Status Dates Gopal Potter MD Attending Provider Active Yesica Nickerson Primary Care Provider Active Staff Rn Relationship Specialty Start Date End Date Brian Leblanc MD [address] [place] [address] PCP - General Family Medicine 04/14/23 Yesica Nickerson NP [address] [place] [address] [facility] Staff Rn Relationship Specialty Start Date End Date Brian Leblanc MD [address] [place] [address] PCP - General Family Medicine 04/14/23 Yesica Nickerson NP [address] [place] [address] PCP - Shauna Rivera 09/18/23 Team Status: Inactive Member Role Status Dates Yesica Nickerson Primary Care Provider Active Sta rt: December 04, 2023 End: December 04, 2023 Salinas White MD Attending Provider Active St art: December 04, 2023 End: December 04, 2023 Staff Rn Relationship Specialty Start Date End Date Brian Leblanc MD [address] [place] [address] PCP - General Family [facility] 04/14/23 Yesica Nickerson NP [address] [place] [address] PCP Briseida Villatoro [employer] 09/18/23 REASON FOR VISIT (unrecogniz ed section and [...] BE BASED ON THE PRIMARY CLINICAL RECORDS. [employer] provides no warranty or guarantee of the accuracy or completeness of information in this document.
[2023-12-29 10:04] VITALS: BP 118/68; PULSE 62; O2SAT 99
== END 2023-12-29 10:06 | disposition home or self-care (01) ==
LOC: VC 08:59
PROVIDERS: PCP Radiology Diagnostic Radiology; Visit Provider Radiology Diagnostic Radiology
DX: I83.813 Varicose veins of bilateral lower extremities with pain (principal)
CPT/HCPCS: 36471

== ENCOUNTER 2024-01-19 08:01 | Outpatient (OUT) | payer BC, SELFPAY ==
--- NOTE | 2024-01-19 07:26 | VEINCLINIC_ITS ---
Vital Signs 01/19/24 11:01 Height 5 ft 9 in Weight 103 kg BMI 33.5 BP 106/58 BP Location Left Brachial BP Position Sitting BP Cuff Size Adult BP Source Manual Cuff Respiration 18 Pulse 68 Pulse Oximetry (%) 97 Varicose Veins Patient in today for sclerotherapy Ben Zeng MD personally performed the services described in this documentation, as scribed by Abel Tineo RN in my presence and it is both accurate and complete. Abel Zeng RN, am scribing for, and in the presence of, Dr. Ben Hollingsworth and in the presence of the patient. thigh: bilateral, knee: bilateral, calf: bilateral, ankle: bilateral and simmons: bilateral aching, cramping, sharp and intermittent 8 1 year Worsened in recent months: Yes other (denies) other (daily anti-inflammatory) Reports muscle spasms of leg, limb pain and leg edema (pitting) History of lower extremity trauma: No Superficial thrombophlebitis: No Family history of varicose veins: yes (mother and father) Has patient had previous lower extremity venous surgery: No Patient has previously received the following treatment(s) for lower extremity varicose veins: Reports none Does patient have a history of : yes (grav 3 para 2) Does patient intend to have future pregnancies: no Has patient had lower extremity venous scan with relux testing: Yes Support hose used: Yes (6 months) Prescribed by provider: No Problems walking or doing physical activity: No Do you walk much: Yes Do you stand much: Yes Medication compliance: good Large amounts of Vitamin K: No Review of Systems ROS Narrative Ben Zeng MD personally performed the services described in this documentation, as scribed by Abel Tineo RN in my presence and it is both accurate and complete. Abel Zeng RN, am scribing for, and in the presence of, Dr. Ben Hollingsworth and in the presence of the patient. Status of ROS 10 or more systems reviewed and unremark able except as noted in history and below Cardiovascular Reports: edema; Denies: swelling of feet/ankles Musculoskeletal Reports: extremity pain, extremity swelling, joint pain, joint swelling, muscle cramps and muscle weakness Integumentary/Breast Reports: skin pain, skin tenderness and skin swelling [facility] Medical History (Updated 11/27/23 @ 07:32 by Kelsi Sal RN) Phlebitis and thrombophlebitis of superficial vessels of right lower extremity ?I80.01 - Phlebitis and thrombophlebitis of superficial vessels of right lower extremity (ICD-10) Lymphoma of lymph nodes of axilla ?C85.94 - Non-Hodgkin lymphoma, unspecified, lymph nodes of axilla and upper limb (ICD-10) Hemorrhage following tonsillectomy and adenoidectomy ?J95.830 - Postprocedural hemorrhage of a respiratory system organ or structure following a respiratory system procedure (ICD-10) Encounter for cholecystectomy ?Z76.89 - Persons encountering health services in other specified circumstances (ICD-10) Lymphedema ?I89.0 - Lymphedema, not elsewhere classified (ICD-10) Migraines ?G43.909 - Migraine, unspecified, not intractable, without status migrainosus (ICD-10) Gastroesophageal reflux ?K21.9 - Gastro-esophageal reflux disease without esophagitis (ICD-10) Varicose veins of bilateral lower extremities with pain ?I83.813 - Varicose veins of bilateral lower extremities with pain (ICD-10) Hypertension ?I10 - Essential (primary) hypertension (ICD-10) Hypercholesteremia ?E78.00 - Pure hypercholesterolemia, unspecified (ICD-10) Endometriosis ?N80.9 - Endometriosis, unspecified (ICD-10) Surgical History (Updated 01/19/24 @ 14:36 by Abel Tineo) S/P sclerotherapy of varicose veins ?Z98.890 - Other specified postprocedural states (ICD-10) ?Z86.79 - Personal history of other diseases of the circulatory system (ICD- 10) S/P sclerotherapy of varicose veins ?Z98.890 - Other specified postprocedural states (ICD-10) ?Z86.79 - Personal history of other diseases of the circulatory system (ICD- 10) S/P sclerotherapy of varicose veins ?Z98.890 - Other specified postprocedural states (ICD-10) ?Z86.79 - Personal history of other diseases of the circulatory system (ICD- 10) H/O hernia repair ?Z98.890 - Other specified postprocedural states (ICD-10) ?Z87.19 - Personal history of other diseases of the digestive system (ICD-10) H/O arthroscopy of knee ?Z98.890 - Other specified postprocedural states (ICD-10) H/O: hysterectomy ?Z90.710 - Acquired absence of both cervix and uterus (ICD-10) Family History (Updated 08/19/23 @ 10:03 by Kelsi Sal RN) Mother Family history of cancer Varicose veins of bilateral lower extremities with pain Grandmother Family history of diabetes mellitus Father Family history of hypertension Varicose veins of bilateral lower extremities with pain Son Family history of hypertension Grandfather Family history of stroke Social History (Updated 08/19/23 @ 08:47 by Kelsi Sal RN) Within the past year, how often did you have a drink containing alcohol: monthly or less Smoking status: Current every day smoker Do you use any of these nicotine containing products: vaping products Non-prescribed substance use: denies use Meds Home Medications and Allergies Home Medications ?Medication ?Instructions ?Recorded ?Confirmed ?Type alprazolam 0.25 mg tablet (Xanax) 0.25 mg PO PRN 08/19/23 08/19/23 History atorvastatin 10 mg tablet 10 mg PO QPM 08/19/23 08/19/23 History hormonal cream 08/19/23 History hydrochlorothiazide 12.5 mg tablet 25 mg PO DAILY 08/19/23 08/19/23 History meloxicam 15 mg tablet 15 mg PO DAILY 08/19/23 08/19/23 History omeprazole 20 mg capsule,delayed 20 mg PO DAILY 08/19/23 08/19/23 History release aspirin 325 mg capsule 325 mg PO DAILY 12/17/23 12/17/23 History Allergies Allergy/AdvReac Type Severity Reaction Status Date / Time rofecoxib (From Vioxx) Allergy Unknown Unknown Unverified 08/19/23 08:53 amoxicillin Allergy rash Unverified 08/19/23 08:53 iodine Allergy Rash Unverified 08/19/23 09:58 methylprednisolone Allergy itching Unverified 08/19/23 10:18 paroxetine (From Paxil) Allergy Unknown Unverified 08/19/23 08:53 sertraline (From Zoloft) Allergy Unknown Unverified 08/19/23 08:53 Exam Narrative Exam Narrative: Ben Zeng MD personally performed the services described in this documentation, as scribed by Abel Tineo RN in my presence and it is both accurate and complete. I, Abel Tineo RN, am scribing for, and in the presence of, Dr. Ben Hollingsworth and in the presence of the patient. Constitutional Vital Signs, click to edit/add: Last Vital Signs Pulse 53 L 08/19/23 08:58 Resp 16 08/19/23 08:58 BP 104/72 08/19/23 08:58 Pulse Ox 98 08/19/23 08:58 Documenting provider has reviewed patient's vital signs: yes Common normals: oriented x3 Nutritional appearance: overweight Lymph Lymphatic: no lymphedema noted Cardio Peripheral pulses: posterior tibial pulses present and dorsalis pedis pulses present Extremity General: calf tenderness, edema and other findings Right lower extremity: lower leg Right lower leg: inspection and palpation Left lower extremity: lower leg Left lower leg: inspection and palpation Neuro Common normals: oriented x3 Assessment and Plan Assessment and Plan (1) Varicose veins of bilateral lower extremities with pain: Plan Plan of complete at this time. Patient to f/u in future as necessary. IBen MD personally performed the services described in this documentation, as scribed by Abel Tineo RN in my presence and it is both accurate and complete. I, Abel Tineo RN, am scribing for, and in the presence of, Dr. Ben Hollingsworth and in the presence of the patient. Procedures Procedure Instructions Procedures sclerotherapy: Risks and benefits of the procedure were discussed at length and informed written consent was obtained.? Time-out procedure was performed and the correct patient and procedure were confirmed.? Staff present during time-out: Abel Tineo RN and Ben Hollingsworth MD.? Patient prepped and procedure performed in usual sterile fashion. Injections performed by Dr. Hollingsworth and Abel Tineo RN Sclerosing Agent:?? 4cc 0.5% Polidocanol Site Injected: left leg Number of Injections: 34 Anesthesia: Supercooled air The patient tolerated the procedure well without complication.? Hemostasis was obtained and thigh-high compression stocking was applied by patient.? Instructed patient to wear stocking for at least 96 hours and sleep with it and only remove for showering.? Will wear stocking for 2 weeks.? The patient verbalizes understanding and states they will comply.? Patient was given post-procedure instructions. Patient was discharged in good condition.? Plan of care complete at this time. Patient to f/u as necessary. IBen MD personally performed the services described in this documentation, as scribed by Abel Tineo RN in my presence and it is both accurate and complete. IAbel RN, am scribing for, and in the presence of, Dr. Ben Hollingsworth and in the presence of the patient.
--- NOTE | 2024-01-19 07:28 | W.VEIN ---
Discharge Plan Discharge Disposition: Home, Self-Care Plan of Treatment: f/u in future as necessary Patient Instructions: Polidocanol (By injection) Print Language: [place] Citizen
--- NOTE | 2024-01-19 08:01 | VEIN_ITS ---
[address] [address] Patient Name: AUDREY MUÑOZ MRN: [id number] date: 1975 Sex: F Assigned Patient Location: Current Patient Location: Accession/Order Number: [id number] Exam Date: 01/19/2024 08:02 Report Date: 01/19/2024 16:27 At the request of: DOUGLAS SOLANO Procedure: VC INJ Sclerosing SOLMULT Vein EXAMINATION: VC INJ Sclerosing SOLMULT Vein HISTORY: I83.813 - Varicose veins of bilateral lower extremities w... The risks and benefits of the procedure were explained at length to the patient and informed written consent was obtained. The procedure was performed under sterile technique. The patient's leg was wrapped with Coban and postprocedural verbal and written instructions provided. Abel Tineo RN was present and assisted. SCLEROSANT: 2mL 0.5% Polidocanol. VEIN(S) INJECTED: 34 veins in the left leg. VISUALIZATION: Ultrasound was not used to visualize the sclerosant. ANESTHESIA: Supercooled air. COMPLICATIONS: None. Electronically authenticated by: JONATHAN MAS Date: 01/19/2024 16:27
--- OUTSIDE RECORDS SUMMARY | 2024-01-19 08:13 | XMS_ITS | CCD ---
Author Organization [facility] Care Team Providers Care Inter Com Servicer Name Role Phone YESICA NICKERSON Primary Care Physician AICHEVELYNZ, BUSINESS BANKING RELATIONSHIP MANAGER YESICA Primary Care Unavailable AICHHOLZ, BUSINESS BANKING RELATIONSHIP MANAGER YESICA Admitting Unavailable DR DOUGLAS SOALNO V Consulting Unavailable AICHHOLZ, BUSINESS BANKING RELATIONSHIP MANAGER YESICA Attending Unavailable AICHHOLZ, BUSINESS BANKING RELATIONSHIP MANAGER YESICA Consulting Unavailable AICHHOLZ, BUSINESS BANKING RELATIONSHIP MANAGER YESICA Attending Unavailable AICHHOLZ, BUSINESS BANKING RELATIONSHIP MANAGER YESICA Consulting Unavailable AICHHOLZ, BUSINESS BANKING RELATIONSHIP MANAGER YESICA Primary Care Unavailable AICHHOLZ, BUSINESS BANKING RELATIONSHIP MANAGER YESICA Admitting Unavailable AICHHOLZ, BUSINESS BANKING RELATIONSHIP MANAGER YESICA Attending Unavailable AICHHOLZ, BUSINESS BANKING RELATIONSHIP MANAGER YESICA Consulting Unavailable AICHHOLZ, BUSINESS BANKING RELATIONSHIP MANAGER YESICA Primary Care Unavailable AICHHOLZ, BUSINESS BANKING RELATIONSHIP MANAGER YESICA Admitting Unavailable AICHHOLZ, BUSINESS BANKING RELATIONSHIP MANAGER YESICA Attending Unavailable AICHHOLZ, BUSINESS BANKING RELATIONSHIP MANAGER YESICA Consulting Unavailable AICHHOLZ, BUSINESS BANKING RELATIONSHIP MANAGER YESICA Primary Care Unavailable AICHHOLZ, BUSINESS BANKING RELATIONSHIP MANAGER YESICA Admitting Unavailable DR JONATHAN HOLLINGSWORTH Consulting Unavailable AICHHOLZ, BUSINESS BANKING RELATIONSHIP MANAGER YESICA Consulting Unavailable AICHHOLZ, BUSINESS BANKING RELATIONSHIP MANAGER YESICA Primary Care Unavailable AICHHOLZ, BUSINESS BANKING RELATIONSHIP MANAGER YESICA Admitting Unavailable AICHHOLZ, BUSINESS BANKING RELATIONSHIP MANAGER YESICA Attending Unavailable Elise Stone Unavailable MD Gopal Potter Attending Provider [phone] Yesica Nickerson Primary Care Provider Tika Otero Unavailable Boby Cevallos Attending Unavailable Boby Cevallos Attending Unavailable Brian Leblanc MD Primary Care Provider Aicryan REGISTERED DENTAL ASSISTANT, Yesica Unavailable Yesica Nickerson Primary Care Provider MD Salinas White Attending Provider [phone] Yesica Nickerson Primary Care Unavailable Salinas White Attending Unavailable Salinas White Admitting Unavailable YESICA NICKERSON Attending Unavailable RADHIKA QUISPE Attending Unavailable RADHIKA QUISPE Attending Unavailable YESICA NICKERSON Attending Unavailable RADHIKA QUISPE Attending Unavailable SUNNI MATHEW Attending Unavailable YESICA NICKERSON Referring Unavailable YESICA NICKERSON Attending Unavailable YESICA NICKERSON Attending Unavailable ZEESHAN BENSON Attending Unavailable ZEESHAN BENSON Referring Unavailable YESICA NICKERSON Attending Unavailable Allergies Allergy Classification Reported Allergen(s) Allergy Type Date of Onset Reaction(s) Facility (17 sources) Amoxicillin; Translations: [amoxicillin] Drug Allergy 06-29-19 Unknown (qualifier value), Unknown [facility] (6 sources) Iodine; Translations: [iodine containing compounds] Drug allergy Eruption of skin (disorder) [facility] (15 sources) PARoxetine; Translations: [paroxetine] Drug Allergy 06-29-19 Unknown (qualifier value), Unknown [facility] (15 sources) Povidone-Iodine; Translations: [povidone iodine topical] Drug Allergy 06-29-19 Unknown (qualifier value) [facility] (8 sources) rofecoxib; Translations: [rofecoxib] Drug Allergy 06-29-19 Unknown (qualifier value) [facility] (15 sources) Sertraline; Translations: [sertraline] Drug Allergy 06-29-19 Unknown (qualifier value), Unknown [facility] (1 source) Adhesive agent Drug allergy (disorder) [facility] (5 sources) Iodine Drug Allergy 01-27-20 13 burning sensation, Redness of Skin, Redness of Skin, burning sensation [facility] (1 source) Latex Drug allergy (disorder) [facility] (3 sources) Cortisone; Translations: [cortisone] Drug Allergy 06-29-19 Itching [facility] (7 sources) Iodine Drug Allergy 01-25-20 [facility] (7 sources) methylPREDNISolone Drug Allergy 01-25-20 Itching [facility] (7 sources) Povidone-Iodine Drug Allergy 05-27-19 24 Other [facility] (7 sources) rofecoxib Drug Allergy 04-14-19 Unknown [facility] (1 source) Amoxicillin Drug Allergy 01-21-20 [facility] (1 source) Iodine Drug Allergy 01-21-20 [facility] (1 source) PARoxetine Drug Allergy 06-29-19 [facility] (1 source) Povidone-Iodine Drug Allergy 06-29-19 [facility] (1 source) rofecoxib Drug Allergy 06-29-19 [facility] (1 source) Sertraline Drug Allergy 06-29-19 [facility] Medications Current Medications Medication Drug Class(es) Dates Sig (Normalized) Sig (Original) ALPRAZolam 0.25 mg oral tablet (11 sources) Benzodiazepine Start: 09-13-2021 alprazolam 0.25 mg Tab 30 tab(s), Refills(s) 0 Start Date: 09/13/21 Status: Ordered atorvastatin 10 mg oral tablet (8 sources) HMG-CoA Reductase Inhibitor Start: 10-30-2023 End: 01-28-2024 take 1 tablet by mouth once daily atorvastatin (Lipitor) 10 MG tablet Indications: Mixed hyperlipidemia (CMS/HCC) Take 1 tablet (10 mg) by mouth Daily 90 tablet 1 10/30/2023 01/28/2024 Active Atorvastatin Will cium 10 MG Oral for 90 Days Active cholecalciferol 0.025 mg oral capsule (7 sources) Vitamin D take 2 capsules by mouth every week Cholecalciferol (Vitamin D3) 1000 units capsule Take 2,000 Units by mouth 1 (one) time per week Active DHEA 10 MG (1 source) DHEA 10 MG as di rected Orally Active Hormone Cream Base cream (7 sources) Hormone Cream Ba se cream 0.5 [...] Active metaxalone 800 mg oral table t (11 sources) Start: 11-13-2021 metaxalone 800 mg Tab Refills(s) 0 Start Date: 11/13/21 Status: Ordered metaxalone (Skel axin) 800 MG tablet Take 400 mg by mouth 4 (four) times a day as needed for muscle spasms Active omeprazole 20 mg delayed release oral capsule (16 sources) Proton Pump Inhibitor Start: 12-04-2023 End: 02-04-2024 take 1 capsule by mouth before mealtime omeprazole (PriLOSEC) [address] capsule Indications: Peptic ulcer without hemorrhage, perforation, or obstruction Take 1 capsule (20 mg) by mouth in the morning. Take before meals. 30 capsule 2 01/05/2024 02/04/2024 Active Start: 09-13-2021 take 1 capsule by mo uth once daily omeprazole 40 mg Cap-DR 30 EA, TAKE 1 CAPSULE BY MOUTH EVERY DAY, Refills(s) 0 Start Date: 09/13/21 Status: Ordered Omeprazole Activ e spironolactone 25 mg oral tablet (7 sources) Aldosterone Antagonist Start: 11-17-2023 End: 12-17-2023 take 1 tablet by mouth once daily as needed spironolactone (Aldactone) 25 MG tablet Indications: Bilateral lower extremity edema Take 1 tablet (25 mg) by mouth Daily as needed (swelling legs) 30 tablet 2 11/17/2023 Active UNABLE TO FIND (7 sources) take 1 tablet by mouth once daily UNABLE TO FIND Take 1 tablet by mouth Daily Med Name: DHEA 5mg tablet Active Problems Active Problems Problem Classification Problem Date Documented Date Episodic/Chronic Anxiety disorders (7 sources) Mixed anxiety and depressive disorder; Translations: [Anxiety disorder, unspecified] Onset: 04-29-2023 04-29-2023 Chronic Disorders of lipid metabolism (7 sources) Mixed hyperlipidemia; Translations: [Mixed hyperlipidemia] Onset: 04-14-2023 04-14-2023 Chronic Endometriosis (7 sources) Endometriosis (clinical); Translations: [Endometriosis, unspecified] Onset: 01-29-2013 01-24-2023 Chronic Esophageal disorders (8 sources) Gastroesophageal reflux disease without esophagitis; Translations: [Gastro-esophageal reflux disease without esophagitis] Onset: 12-04-2023 12-04-2023 Chronic Fluid and electrolyte disorders (7 sources) Hypokalemia; Translations: [Hypokalemia] Onset: 10-30-2023 10-30-2023 Episodic Gastroduodenal ulcer (except hemorrhage) (10 sources) Peptic ulcer without hemorrhage, without perforation AND without obstruction; Translations: [Peptic ulcer, site unspecified, unspecified as acute or chronic, without hemorrhage or perforation] Onset: 01-29-2013 01-24-2023 Chronic Headache; including migraine (7 sources) Migraine; Translations: [Migraine, unspecified, not intractable, without status migrainosus] Onset: 04-29-2023 04-29-2023 Chronic Immunizations and screening for infectious disease (9 sources) Anti-nuclear factor positive; Translations: [Other specified abnormal immunological findings in serum] Onset: 11-06-2023 11-06-2023 Episodic Joint disorders and dislocations; trauma-related (7 sources) Derangement of right knee; Translations: [Unspecified internal derangement of right knee] Onset: 01-24-2023 01-24-2023 Chronic Malaise and fatigue (8 sources) Asthenia; Translations: [Weakness] Onset: 09-23-2023 Episodic Menopausal disorders (11 sources) Menopausal and female climacteric states; Translations: [Menopause ovarian failure] Onset: 04-19-2022 Chronic Menstrual disorders (16 sources) Amenorrhea; Translations: [Amenorrhea, unspecified] Onset: 01-24-2023 01-24-2023 Chronic Nonmalignant breast conditions (7 sources) Fibrocystic disease of breast; Translations: [Diffuse cystic mastopathy of unspecified breast] Onset: 01-29-2013 01-24-2023 Chronic Osteoarthritis (7 sources) Osteoarthritis of knee; Translations: [Osteoarthritis of knee, unspecified] Onset: 01-24-2023 01-24-2023 Chronic Other aftercare (1 source) Surgical follow-up; Translations: [Encounter for surgical aftercare following surgery on the sense organs] 01-08-2024 Episodic Other endocrine disorders (1 source) Other specified disorders of adrenal gland; Translations: [OTHER SPEC DISORDERS ADRENAL GLAND] Onset: 04-22-2022 Chronic Other eye disorders (1 source) Dermatochalasis of right upper eyelid; Translations: [Dermatochalasis] 12-25-2023 Episodic Other eye disorders (1 source) Ptosis of eyelid; Translations: [Unspecified ptosis of bilateral eyelids] 12-25-2023 Episodic Other female genital disorders (7 sources) Pain in female genitalia on intercourse; Translations: [Unspecified dyspareunia] Onset: 04-29-2023 04-29-2023 Chronic Other nervous system disorders (1 source) Other chronic pain; Translations: [OTHER CHRONIC PAIN] Onset: 06-19-2021 Chronic Other nervous system disorders (7 sources) Thoracic outlet syndrome; Translations: [Brachial plexus [...] Chronic Other nutritional; endocrine; and metabolic disorders (9 sources) Obesity; Translations: [Obesity, unspecified] Onset: 01-24-2023 01-24-2023 Chronic Other upper respiratory disease (2 sources) Seasonal allergic rhinitis; Translations: [Other seasonal allergic rhinitis] Chronic Other upper respiratory disease (1 source) Other seasonal allergic rhinitis Chronic Other upper respiratory infections (1 source) Acute pharyngitis, unspecified Episodic Residual codes; unclassified (7 sources) Obstructive sleep apnea syndrome; Translations: [Obstructive sleep apnea (adult) (pediatric)] Onset: 04-29-2023 04-29-2023 Chronic Residual codes; unclassified (4 sources) Localized edema; Translations: [LOCALIZED EDEMA] Onset: 05-18-2022 Episodic Substance-related disorders (7 sources) Smokes tobacco daily; Translations: [Nicotine dependence, unspecified, uncomplicated] Onset: 01-24-2023 01-24-2023 Chronic Thyroid disorders (1 source) Nontoxic goiter, unspecified; Translations: [NONTOXIC GOITER UNSPECIFIED] Onset: 04-22-2022 Chronic Past or Other Problems Problem Classification Problem Date Documented Date Episodic/Chronic Cardiac dysrhythmias (7 sources) Palpitations; Translations: [Palpitations] Onset: 09-24-2023 09-24-2023 Episodic Conditions associated with dizziness or vertigo (8 sources) Dizziness and giddiness; Translations: [Dizziness and giddiness] Onset: 09-23-2023 Episodic Headache; including migraine (7 sources) Headache; Translations: [Headache] Onset: 06-17-2007 04-29-2023 Episodic Other connective tissue disease (4 sources) Fibromyalgia; Translations: [FIBROMYALGIA] Onset: 06-15-2021 Episodic Other connective tissue disease (7 sources) Plantar fasciitis; Translations: [Plantar fascial fibromatosis] Onset: 01-24-2023 01-24-2023 Episodic Other connective tissue disease (7 sources) Fibromyalgia; Translations: [Fibromyalgia] Onset: 04-29-2023 04-29-2023 Episodic Other non-traumatic joint disorders (11 sources) Pain in right knee; Translations: [Pain [...] breast] Onset: 01-11-2022 Episodic Other skin disorders (7 sources) Disorder of skin of lower limb; Translations: [Disorder of the skin and subcutaneous tissue, unspecified] Onset: 08-05-2023 08-05-2023 Episodic Other skin disorders (7 sources) Mass of skin of right lower [...] ORGN/SYS] Onset: 01-16-2022 Episodic Residual codes; unclassified (7 sources) Bilateral lower limb edema; Translations: [Localized edema] Onset: 04-14-2023 04-14-2023 Episodic Residual codes; unclassified (9 sources) Tobacco user; Translations: [Tobacco use] Onset: 04-29-2023 04-29-2023 Episodic Residual codes; unclassified (7 sources) Menopause present; Translations: [Asymptomatic menopausal state] Onset: 04-30-2023 04-30-2023 Episodic Residual codes; unclassified (7 sources) Patient participation status; Translations: [Other specified health status] Onset: 08-05-2023 08-05-2023 Episodic Unclassified (1 source) Exposure to 2019 novel coronavirus; Translations: [Contact with and (suspected) exposure to COVID19] Unclassified (1 source) Suspected COVID-19 virus infection Z20.822 Varicose veins of lower extremity (9 sources) Varicose veins of lower extremity; Translations: [Varicose veins of bilateral lower extremities with pain] Onset: 08-05-2023 08-05-2023 Episodic Viral infection (1 source) COVID-19 Results Test Name Value Interpretation Reference Range Facility Automated basophil %Ordered By: Salinas White on 12-04-2023 Basophils/100 WBC (Bld) 0.9 % Normal . [facility] Comment on above: Performed By: #### C 3, CH50, C4 #### [facility] , #### ADDONUAPLUS, CRP, CREAT, ESR, CBC #### [facility] [address] Automated basophil countOrde red By: Salinas White on 12-04-2023 Basophils (Bld) [#/Vol] 0.0 10*3/uL Normal 0.0-0.2 [facility] Comment on above: Performed By: #### C 3, CH50, C4 #### [facility] , #### ADDONUAPLUS, CRP, CREAT, ESR, CBC #### [address] Automated blood monocyte cou ntOrdered By: Salinas Websterjose g on 12-04-2023 Monocytes (Bld) [#/Vol] 0.3 10*3/uL Normal 0.0-0.8 [facility] Comment on above: Performed By: #### C 3, CH50, C4 #### [facility] , #### ADDONUAPLUS, CRP, CREAT, ESR, CBC #### [address] Automated eosinophil %Ordere d By: Salinas Websterjose g on 12-04-2023 Eosinophils/100 WBC (Bld) 2.7 % Normal . [facility] Comment on above: Performed By: #### C 3, CH50, C4 #### [facility] , #### ADDONUAPLUS, CRP, CREAT, ESR, CBC #### [address] Automated eosinophil countOr dered By: Salinas Websterjose g on 12-04-2023 Eosinophils (Bld) [#/Vol] 0.1 10*3/uL Normal 0.0-0.45 [facility] Comment on above: Performed By: #### C 3, CH50, C4 #### [facility] , #### ADDONUAPLUS, CRP, CREAT, ESR, CBC #### [address] Automated monocyte %Ordered By: Salinas Websterjose g on 12-04-2023 Monocytes/100 WBC (Bld) 6.1 % Normal . [facility] Comment on above: Performed By: #### C 3, CH50, C4 #### [facility] , #### ADDONUAPLUS, CRP, CREAT, ESR, CBC #### [address] Automated neutrophil %Ordere d By: Salinas White on 12-04-2023 Neutrophils/100 WBC (Bld) 50.0 % Normal . [facility] Comment on above: Performed By: #### C 3, CH50, C4 #### [facility] , #### ADDONUAPLUS, CRP, CREAT, ESR, CBC #### [facility] [address] [place] [address] [place] Bacteria [Presence] in Urine by AutomatedOrdered By: Salinas White on 12-04-2023 Bacteria Auto Ql (U) Rare [HPF] None Seen [facility] Bilirubin Test strip Ql (U)O rdered By: Salinas White on 12-04-2023 Bilirubin Ql (U) Negative Negative [facility] C reactive protein [Mass/vol ume] in Serum or PlasmaOrdered By: Salinas White on 12-04-2023 CRP [Mass/Vol] < 0.5 mg/dL 0.0-0.5 [facility] C-Reactive Proteinon 024 CRP [Mass/Vol] mg/L Normal 0.0-0.5 [facility] Comment on above: Result Comment: PERF ORMED BY: [place] [address] PATHOLOGIST FORENSIC CHEMIST LYDIA JACKSON M.D. Performed By: #### C 3, CH50, C4 #### [facility] , #### ADDONUAPLUS, CRP, CREAT, ESR, CBC #### [facility] [address] [place] [address] [place] Color of Urine by AutoOrdere d By: Salinas White on 12-04-2023 Color (U) Light-yellow Normal Yellow [facility] Comment on above: Order Comment: Name Collection Type:: Clean-Voided Midstream Performed By: #### C 3, CH50, C4 #### [facility] , #### ADDONUAPLUS, CRP, CREAT, ESR, CBC #### [facility] [address] [place], [place] [id number] [place] Complement C3on 12-04-2023 Complement C3 125 mg/dL Normal 82-167 [facility] Comment on above: Result Comment: Perf ormed at: - [facility] [id number] Underwriting Operations Manager: Bill Lagunas PhD, Phone: [phone] Performed By: #### C 3, CH50, C4 #### [facility] , #### ADDONUAPLUS, CRP, CREAT, ESR, CBC #### [address] Complement C4on 12-04-2023 Complement C4 29 mg/dL Normal 12-38 [facility] Comment on above: Result Comment: PERF ORMED BY: [place] [address] PATHOLOGIST FORENSIC CHEMIST LYDIA JACKSON M.D. Performed By: #### C 3, CH50, C4 #### [facility] , #### ADDONUAPLUS, CRP, CREAT, ESR, CBC #### [address] Complement Total (CH50)on Complement Total (CH50) 52 Normal >41 [facility] Comment on above: Result Comment: [...] out of range values. Performed at: - [facility] [id number] Underwriting Operations Manager: Bill Lagunas PhD, Phone: [phone] PERFORMED BY: [place] [address] PATHOLOGIST FORENSIC CHEMIST LYDIA JACKSON M.D. Performed By: #### C 3, CH50, C4 #### [facility] , #### ADDONUAPLUS, CRP, CREAT, ESR, CBC #### [address] Complete Blood Count Auto Di ffon 12-04-2023 Mean Corpuscular HGB Conc 34.1 g/dL Normal 32.0-35.0 [facility] Comment on above: Performed By: #### C 3, CH50, C4 #### [facility] , #### ADDONUAPLUS, CRP, CREAT, ESR, CBC #### [address] NRBC% 0.1 /100{WBC} Normal 0-0.5 [facility] Comment on above: Performed By: #### C 3, CH50, C4 #### [facility] , #### ADDONUAPLUS, CRP, CREAT, ESR, CBC #### [address] Creatinineon 12-04-2023 GFR/1.73 sq M.predicted MDRD (S/P/Bld) [Vol rate/Area] mL/min/{1.73_m2} Normal [facility] Comment on above: Performed By: #### C 3, CH50, C4 #### [facility] , #### ADDONUAPLUS, CRP, CREAT, ESR, CBC #### [address] Creatinine [Mass/volume] in Serum or PlasmaOrdered By: Salinas White on 12-04-2023 Creatinine [Mass/Vol] 0.71 mg/dL Normal 0.60-1.20 [facility] Comment on above: Performed By: #### C 3, CH50, C4 #### [facility] , #### ADDONUAPLUS, CRP, CREAT, ESR, CBC #### [place] [address] [place] Dipstick and Microscopicon 1 Bacteria,Urine Rare Normal None Seen [facility] Comment on above: Order Comment: Name Collection Type:: Clean-Voided Midstream Performed By: #### C 3, CH50, C4 #### [facility] , #### ADDONUAPLUS, CRP, CREAT, ESR, CBC #### [address] Bilirubin,Urine Negative Normal Negative [facility] Comment on above: Order Comment: Name Collection Type:: Clean-Voided Midstream Performed By: #### C 3, CH50, C4 #### [facility] , #### ADDONUAPLUS, CRP, CREAT, ESR, CBC #### [address] Glucose Ql (U) Normal Normal Normal [facility] Comment on above: Order Comment: Name Collection Type:: Clean-Voided Midstream Performed By: #### C 3, CH50, C4 #### [facility] , #### ADDONUAPLUS, CRP, CREAT, ESR, CBC #### [address] Hyaline Casts,Urine None Normal 0-8 [facility] Comment on above: Order Comment: Name Collection Type:: Clean-Voided Midstream Performed By: #### C 3, CH50, C4 #### [facility] , #### ADDONUAPLUS, CRP, CREAT, ESR, CBC #### [address] Mucus,Urine Rare Normal [facility] Comment on above: Order Comment: Name Collection Type:: Clean-Voided Midstream Result Comment: PERF ORMED BY: [place] [address] PATHOLOGIST FORENSIC CHEMIST LYDIA JACKSON M.D. Performed By: #### C 3, CH50, C4 #### [facility] , #### ADDONUAPLUS, CRP, CREAT, ESR, CBC #### [address] Nitrite,Urine Negative Normal Negative [facility] Comment on above: Order Comment: Name Collection Type:: Clean-Voided Midstream Performed By: #### C 3, CH50, C4 #### [facility] , #### ADDONUAPLUS, CRP, CREAT, ESR, CBC #### [address] Occult Blood,Urine Negative Normal Negative [facility] Comment on above: Order Comment: Name Collection Type:: Clean-Voided Midstream Performed By: #### C 3, CH50, C4 #### [facility] , #### ADDONUAPLUS, CRP, CREAT, ESR, CBC #### [address] Protein,Urine Negative Normal Negative [facility] Comment on above: Order Comment: Name Collection Type:: Clean-Voided Midstream Performed By: #### C 3, CH50, C4 #### [facility] , #### ADDONUAPLUS, CRP, CREAT, ESR, CBC #### [address] RBC,Urine None Seen Normal 0-4 [facility] Comment on above: Order Comment: Name Collection Type:: Clean-Voided Midstream Performed By: #### C 3, CH50, C4 #### [facility] , #### ADDONUAPLUS, CRP, CREAT, ESR, CBC #### [address] Specificy [place],Urine 1.018 Normal 1.001-1.030 [facility] Comment on above: Order Comment: Name Collection Type:: Clean-Voided Midstream Performed By: #### C 3, CH50, C4 #### [facility] , #### ADDONUAPLUS, CRP, CREAT, ESR, CBC #### [address] Squamous Epithelial Cell,Urine 3-4 High 0-2 [facility] Comment on above: Order Comment: Name Collection Type:: Clean-Voided Midstream Performed By: #### C 3, CH50, C4 #### [facility] , #### ADDONUAPLUS, CRP, CREAT, ESR, CBC #### [address] Urobilinogen,Urine Normal Normal Normal [facility] Comment on above: Order Comment: Name Collection Type:: Clean-Voided Midstream Performed By: #### C 3, CH50, C4 #### [facility] , #### ADDONUAPLUS, CRP, CREAT, ESR, CBC #### [address] WBC,Urine 1-2 Normal 0-4 [facility] Comment on above: Order Comment: Name Collection Type:: Clean-Voided Midstream Performed By: #### C 3, CH50, C4 #### [facility] , #### ADDONUAPLUS, CRP, CREAT, ESR, CBC #### [address] Epithelial cells.squamous [# /area] in Urine sediment by Automated countOrdered By: Salinas White on 12-04-2023 Epithelial cells.squamous Auto (Urine sed) [#/Area] 3-4 [HPF] High 0-2 [facility] Erythrocyte Sedimentation Ra florentino 12-04-2023 ESR (Bld) [Velocity] 6 mm/h Normal 0-19 [facility] Comment on above: Result Comment: PERF ORMED BY: [place] [address] PATHOLOGIST FORENSIC CHEMIST LYDIA JACKSON M.D. Performed By: #### C 3, CH50, C4 #### [facility] , #### ADDONUAPLUS, CRP, CREAT, ESR, CBC #### [address] [place] [address] [place] Erythrocyte distribution wid th [Ratio] by Automated countOrdered By: Salinas White on 12-04-2023 Erythrocyte distribution width (RBC) [Ratio] 13.1 % Normal 11.9-15.3 [facility] Comment on above: Performed By: #### C 3, CH50, C4 #### [facility] , #### ADDONUAPLUS, CRP, CREAT, ESR, CBC #### [address] [address] Erythrocyte sedimentation ra te by Photometric methodOrdered By: Salinas White on 12-04-2023 ESR Photometric method (Bld) [Velocity] 6 mm/hr 0-19 [facility] Erythrocytes [#/area] in Uri ne sediment by Automated countOrdered By: Salinas White on 12-04-2023 RBC Auto (Urine sed) [#/Area] None seen [HPF] 0-4 [facility] Erythrocytes [#/volume] in B lood by Automated countOrdered By: Salinas White on 12-04-2023 RBC (Bld) [#/Vol] 4.65 10*6/uL Normal 3.60-5.00 [facility] Comment on above: Performed By: #### C 3, CH50, C4 #### [facility] , #### ADDONUAPLUS, CRP, CREAT, ESR, CBC #### [address] Glucose [Mass/volume] in Uri ne by Test stripOrdered By: Salinas White on 12-04-2023 Glucose Test strip (U) [Mass/Vol] Normal mg/dL Normal [facility] Hematocrit [Volume Fraction] of Blood by Automated countOrdered By: Salinas White on 12-04-2023 Hematocrit (Bld) [Volume fraction] 41.2 % Normal 34.0-46.4 [facility] Comment on above: Performed By: #### C 3, CH50, C4 #### [facility] , #### ADDONUAPLUS, CRP, CREAT, ESR, CBC #### [facility] [address] [place] [address] Hemoglobin Test strip Ql (U) Ordered By: Salinas White on 12-04-2023 Hemoglobin Ql (U) Negative Negative [facility] Hemoglobin [Mass/volume] in BloodOrdered By: Salinas White on 12-04-2023 Hemoglobin (Bld) [Mass/Vol] 14.1 g/dL Normal 11.8-15.4 [facility] Comment on above: Performed By: #### C 3, CH50, C4 #### [facility] , #### ADDONUAPLUS, CRP, CREAT, ESR, CBC #### [address] Hyaline casts [#/area] in Ur ine sediment by Automated countOrdered By: Salinsa White on 12-04-2023 Hyaline casts Auto (Urine sed) [#/Area] None [LPF] 0-8 [facility] Ketones [Presence] in Urine by Test stripOrdered By: Salinas White on 12-04-2023 Ketones Ql (U) Negative Normal Negative [facility] Comment on above: Order Comment: Name Collection Type:: Clean-Voided Midstream Performed By: #### C 3, CH50, C4 #### [facility] , #### ADDONUAPLUS, CRP, CREAT, ESR, CBC #### [address] Leukocyte esterase [Presence ] in Urine by Test stripOrdered By: Salinas White on 12-04-2023 Leukocyte esterase Test strip Ql (U) Negative Normal Negative [facility] Comment on above: Order Comment: Name Collection Type:: Clean-Voided Midstream Performed By: #### C 3, CH50, C4 #### [facility] , #### ADDONUAPLUS, CRP, CREAT, ESR, CBC #### [address] Leukocytes [#/area] in Urine sediment by Automated countOrdered By: Salinas White on 12-04-2023 WBC Auto (Urine sed) [#/Area] 1-2 [HPF] 0-4 [facility] Leukocytes [#/volume] correc carol for nucleated erythrocytes in Blood by Automated counOrdered By: Salinas White on 12-04-2023 WBC corrected for nucl RBC Auto (Bld) [#/Vol] 4.5 10*3/uL 3.8-11.6 [facility] Leukocytes [#/volume] in Blo od by Automated countOrdered By: Salinas White on 12-04-2023 WBC (Bld) [#/Vol] 4.5 10*3/uL Normal 3.8-11.6 [facility] Comment on above: Performed By: #### C 3, CH50, C4 #### [facility] , #### ADDONUAPLUS, CRP, CREAT, ESR, CBC #### [facility] [address] [place] [address] Lymphocytes [#/volume] in Bl ood by Automated countOrdered By: Salinas White on 12-04-2023 Lymphocytes (Bld) [#/Vol] 1.8 10*3/uL Normal 1.00-4.8 [facility] Comment on above: Performed By: #### C 3, CH50, C4 #### [facility] , #### ADDONUAPLUS, CRP, CREAT, ESR, CBC #### [facility] [address] [place] [address] [place] Lymphocytes/100 leukocytes i n Blood by Automated countOrdered By: Salinas White on 12-04-2023 Lymphocytes/100 WBC (Bld) 40.3 % Normal . [facility] Comment on above: Performed By: #### C 3, CH50, C4 #### [facility] , #### ADDONUAPLUS, CRP, CREAT, ESR, CBC #### [facility] [address] [place] [address] [place] MCH [Entitic mass] by Automa carol countOrdered By: Salinas White on 12-04-2023 MCH (RBC) [Entitic mass] 30.3 pg Normal 24.7-34.3 [facility] Comment on above: Performed By: #### C 3, CH50, C4 #### [facility] , #### ADDONUAPLUS, CRP, CREAT, ESR, CBC #### [facility] [address] [place] [address] MCHC Auto (RBC) [Mass/Vol]Or dered By: Salinas White on 12-04-2023 MCHC (RBC) [Mass/Vol] 34.1 g/dL 32.0-35.0 [facility] MCV [Entitic volume] by Auto mated countOrdered By: Salinas White on 12-04-2023 MCV (RBC) [Entitic vol] 88.7 fL Normal 80-100 [facility] Comment on above: Performed By: #### C 3, CH50, C4 #### [facility] , #### ADDONUAPLUS, CRP, CREAT, ESR, CBC #### [address] Mucus [Presence] in Urine by AutomatedOrdered By: Salinas White on 12-04-2023 Mucus Auto Ql (U) Rare [LPF] [facility] Neutrophils [#/volume] in Bl ood by Automated countOrdered By: Salinas White on 12-04-2023 Neutrophils (Bld) [#/Vol] 2.3 10*3/uL Normal 1.8-7.7 [facility] Comment on above: Performed By: #### C 3, CH50, C4 #### [facility] , #### ADDONUAPLUS, CRP, CREAT, ESR, CBC #### [facility] [address] [place] [address] Nitrite Test strip Ql (U)Ord ered By: Salinas White on 12-04-2023 Nitrite Ql (U) Negative Negative [facility] No Panel InformationOrdered By: Salinas White on 12-04-2023 Estimated GFR (CKD-EPI) > 60.0 mL/Min [facility] Creatinine Clearance (Chem N/A [facility] Nucleated erythrocytes [Pres ence] in Blood by Automated countOrdered By: Salinas White on 12-04-2023 Nucleated RBC Auto Ql (Bld) 0.1 /100{WBC} 0-0.5 [facility] Platelet mean volume [Entiti c volume] in Blood by Automated countOrdered By: Salinas White on 12-04-2023 Platelet mean volume (Bld) [Entitic vol] 9.7 fL Normal 6.3-10.7 [facility] Comment on above: Performed By: #### C 3, CH50, C4 #### [facility] , #### ADDONUAPLUS, CRP, CREAT, ESR, CBC #### [facility] [address] [place] [address] [place] Platelets [#/volume] in Bloo d by Automated countOrdered By: Salinas White on 12-04-2023 Platelets (Bld) [#/Vol] 205 10*3/uL Normal 150-450 [facility] Comment on above: Performed By: #### C 3, CH50, C4 #### [facility] , #### ADDONUAPLUS, CRP, CREAT, ESR, CBC #### [facility] [address] Protein Test strip (U) [Mass /Vol]Ordered By: Salinas White on 12-04-2023 Protein (U) [Mass/Vol] Negative Negative [facility] Specific gravity Test strip (U) [Rel density]Ordered By: Salinas White on 12-04-2023 Specific gravity (U) [Rel density] 1.018 1.001-1.030 [facility] Urine appearanceOrdered By: Salinas White on 12-04-2023 Appearance (U) Clear Normal Clear [facility] Comment on above: Order Comment: Name Collection Type:: Clean-Voided Midstream Performed By: #### C 3, CH50, C4 #### [facility] , #### ADDONUAPLUS, CRP, CREAT, ESR, CBC #### [facility] [address] [place] [id number] [facility] Urobilinogen Test strip (U) [Mass/Vol]Ordered By: Salinas White on 12-04-2023 Urobilinogen (U) [Mass/Vol] Normal mg/dL Normal [facility] pH of Urine by Test stripOrd ered By: Salinas White on 12-04-2023 pH (U) 6.0 [pH] Normal 5.0-9.0 [facility] Comment on above: Order Comment: Name Collection Type:: Clean-Voided Midstream Performed By: #### C 3, CH50, C4 #### [facility] , #### ADDONUAPLUS, CRP, CREAT, ESR, CBC #### [facility] [address] [place] [id number] [facility] ED Note-Physicianon 09-29-19 ED Note-Physician ED Note-Physician [...] 3 days 09/26/2023 EDT [address] [place] [address] [phone] Business (1) Additional Instructions: Patient Education Dizziness [...] made to ensure accuracy, however, inadvertently computerized project internship mistakes may be present. Appropriate healthcare PPE [...] compounds (Rash) (more content not included)... Normal [facility] Comment on above: Result Comment: Elec tronically Signed By: Fadi Mccoy PA-C\.br\Date and Time Signed: 09/23/23 12:54 EDT\.br\Electronically Co-Signed By: Boby Cevallos DO\.br\Date and Time Co-Signed: 09/29/23 09:31 EDT BB Draw & Holdon 09-23-2023 BB D&H Sample drawn for Blood Ba Normal [facility] Comment on above: Performed By: #### 1 [id number] #### [facility] [address] [place] [address] CBC w/ Auto Diffon 4 Basophils/100 WBC (Bld) 0.6 % Normal 0.0-2.0 [facility] Comment on above: Performed By: #### 2 [id number] #### [facility] [address] [place] [address] Basophils/Leukocytes Auto (Bld) [Pure # fraction] 0.0 E9/L Normal 0.0-0.2 [facility] Comment on above: Performed By: #### 2 [id number] #### [facility] [address] [place] [address] Eosinophils (Bld) [#/Vol] 0.0 E9/L Normal 0.0-0.5 [facility] Comment on above: Performed By: #### 2 [id number] #### [facility] [address] [place] [address] Eosinophils/100 WBC (Bld) 0.6 % Normal 0.0-8.0 [facility] Comment on above: Performed By: #### 2 [id number] #### [facility] [address] [place] [address] Erythrocyte distribution width (RBC) [Ratio] 12.8 % Normal 10.9-14.2 [facility] Comment on above: Performed By: #### 2 [id number] #### [facility] [address] [place] [address] Hematocrit (Bld) [Volume fraction] 42.7 % Normal 34.0-46.0 [facility] Comment on above: Performed By: #### 2 [id number] #### [facility] [address] [place] [address] Hemoglobin (Bld) [Mass/Vol] 14.7 g/dL Normal 12.0-16.0 [facility] Comment on above: Performed By: #### 2 [id number] #### [facility] [address] [place] [address] Lymphocytes (Bld) [#/Vol] 1.8 E9/L Normal 1.0-4.0 [facility] Comment on above: Performed By: #### 2 [id number] #### [facility] [address] [place] [address] Lymphocytes/100 WBC (Bld) 30.1 % Normal 14.0-50.0 [facility] Comment on above: Performed By: #### 2 [id number] #### [facility] [address] [place] [address] MCH (RBC) [Entitic mass] 29.9 pg Normal 27.0-34.0 [facility] Comment on above: Performed By: #### 2 [id number] #### [facility] [address] [place] [address] MCHC (RBC) [Mass/Vol] 34.4 g/dL Normal 31.4-36.0 [facility] Comment on above: Performed By: #### 2 [id number] #### [facility] [address] [place] [address] MCV (RBC) [Entitic vol] 86.8 fL Normal 80.0-100.0 [facility] Comment on above: Performed By: #### 2 [id number] #### [facility] [address] [place] [address] Monocytes (Bld) [#/Vol] 0.4 E9/L Normal 0.2-1.0 [facility] Comment on above: Performed By: #### 2 [id number] #### [facility] [address] [place] [address] Neutrophils (Bld) [#/Vol] 3.7 E9/L Normal 2.0-7.5 [facility] Comment on above: Performed By: #### 2 [id number] #### [facility] [address] [place] [address] Neutrophils/100 WBC (Bld) 61.2 % Normal 36.0-75.0 [facility] Comment on above: Performed By: #### 2 [id number] #### [facility] [address] [place] [address] Platelet mean volume (Bld) [Entitic vol] 9.4 fL Normal 6.4-10.8 [facility] Comment on above: Performed By: #### 2 [id number] #### [facility] [address] [place] [address] Platelets (Bld) [#/Vol] 184.0 E9/L Normal 150.0-500.0 [facility] Comment on above: Performed By: #### 2 [id number] #### [facility] [address] [place] [address] RBC (Bld) [#/Vol] 4.9 E12/L Normal 4.3-5.9 [facility] Comment on above: Performed By: #### 2 [id number] #### [facility] [address] [place] [address] WBC corrected for nucl RBC Auto (Bld) [#/Vol] 6.0 E9/L Normal 4.0-11.0 [facility] Comment on above: Performed By: #### 2 [id number] #### [facility] [address] [place] [address] CHEMISTRYOrdered By: SYSTEM SYSTEM on 09-23-2023 Albumin [...] Sensitivity Troponin I Instructions For Use, Angel Birmingham, September 2017) Urea nitrogen [Mass/Vol] 24 mg/dL High 5 - 21 mg/dL [facility] Urea nitrogen/Creatinine [Mass ratio] 27 mg/mg High 10 - 20 [facility] CHEMISTRYOrdered By: Lab ROP User on 09-23-2023 Glucose [Mass/Vol] 89 mg/dL Normal 55 - 99 mg/dL [facility] POC Subsection Comment on above: Result Comment: Trixie dominique Meter POC Device SN [id number] Invalid Interpretation Code [facility] POC Subsection POC User ID [id number] Invalid Interpretation Code [facility] POC Subsection POC Username SANG HEBERT Invalid Interpretation Code [facility] POC Subsection CMPon 09-23-2023 Albumin [Mass/Vol] 4.7 g/dL Normal 3.3-5.0 [facility] Comment on above: Performed By: #### 2 [id number] #### [facility] [address] [place] [address] Albumin/Globulin (S) [Mass conc ratio] 2.0 Normal 1.1-2.2 [facility] Comment on above: Performed By: #### 2 [id number] #### [facility] [address] [place] [address] ALP [Catalytic activity/Vol] 47 Int._Unit/L Normal 21-98 [facility] Comment on above: Performed By: #### 2 [id number] #### [facility] [address] [place] [address] ALT No additional P-5'-P [Catalytic activity/Vol] 22 Int._Unit/L Normal 6-46 [facility] Comment on above: Performed By: #### 2 [id number] #### [facility] [address] [place] [address] Anion gap [Moles/Vol] 10 mmol/L Normal 6-16 [facility] Comment on above: Performed By: #### 2 [id number] #### [facility] [address] [place] [address] AST [Catalytic activity/Vol] 19 Int._Unit/L Normal 5-43 [facility] Comment on above: Performed By: #### 2 [id number] #### [facility] [address] [place] [address] Bilirubin [Mass/Vol] 0.4 mg/dL Normal 0.0-1.1 [facility] Comment on above: Performed By: #### 2 [id number] #### [facility] [address] [place] [address] Calcium [Mass/Vol] 9.9 mg/dL Normal 8.9-11.1 [facility] Comment on above: Performed By: #### 2 [id number] #### [facility] [address] [place] [address] Chloride [Moles/Vol] 104 mmol/L Normal 101-111 [facility] Comment on above: Performed By: #### 2 [id number] #### [facility] [address] [place] [address] CO2 [Moles/Vol] 31 mmol/L Normal 21-31 [facility] Comment on above: Performed By: #### 2 [id number] #### [facility] [address] [place] [address] Creatinine [Mass/Vol] 0.9 mg/dL Normal 0.5-1.3 [facility] Comment on above: Performed By: #### 2 [id number] #### [facility] [address] [place] [address] Globulin (S) [Mass/Vol] 2.4 g/dL Normal 1.4-4.0 [facility] Comment on above: Performed By: #### 2 [id number] #### [facility] [address] [place] [address] Glucose [Mass/Vol] 101 mg/dL Normal 55-199 [facility] Comment on above: Performed By: #### 2 [id number] #### [facility] [address] [place] [address] Potassium [Moles/Vol] 3.5 mmol/L Normal 3.5-5.3 [facility] Comment on above: Performed By: #### 2 155551 #### [facility] [address] [place] [address] Protein [Mass/Vol] 7.1 g/dL Normal 6.0-7.8 [facility] Comment on above: Performed By: #### 2 [id number] #### [facility] [address] [place] [address] Sodium [Moles/Vol] 141 mmol/L Normal 135-145 [facility] Comment on above: Performed By: #### 2 766120 #### [facility] [address] [place] [address] Urea nitrogen [Mass/Vol] 24 mg/dL High 5-21 [facility] Comment on above: Performed By: #### 2 [id number] #### [facility] [address] [place] [address] Urea nitrogen/Creatinine [Mass ratio] 27 No Units High 10-20 [facility] Comment on above: Performed By: #### 2 [id number] #### [facility] [address] [place] [address] COAGULATIONOrdered By: Abigail Robles on 09-23-2023 aPTT Coag (PPP) [Time] 35.1 s Normal 25.1 - 36.5 second(s) [facility] Auto Coag Comment on above: Interpretive Data: Xochitl jolenesandee 15 days - 4 weeks 1 - [...] the same coagulation reagent and instrumentation as [facility]. Currently there are no coagulation studies available worldwide for children to 14 days, and no normal ranges. Heparin therapeutic range (represented by Anti-Factor Xa activity of 0.2 - 0.4 U/mL) corresponds to PTT of 56.6 - 109.0 sec. INR Coag (PPP) [Relative time] 1.01 {INR} Invalid Interpretation Code [facility] Auto Coag Comment on above: Interpretive Data: I NR results are specifically intended to assess patients stabilized on long-term Anticoagulation therapy suggested INR s Less Intensive Anticoagulation 2.0 3.0 Conventional Range 3.0 4.5 PT Coag (PPP) [Time] 11.3 s Normal 9.4 - 1 2.5 second(s) [facility] Auto Coag Comment on above: Interpretive Data: [...] the same coagulation reagent and instrumentation as [facility]. Currently there are no coagulation studies available [...] Quiñones Read 09/23/2023 11:15 am EDT, Eliu Zhoa M.D. neg for bleed. Normal [facility] Capillary Glucose POCon 08-0 Glucose [Mass/Vol] 89 mg/dL Normal 55-99 [facility] Comment on above: Result Comment: Trixie dominique Meter Performed By: #### 2 [id number] #### [facility] [address] [place] [address] ED Clinical Summaryon 2023 ED Clinical Summary ED Clinical Summary [address] [address] ED Clinical Summary Person Information [...] 09/23/2023 13:01:25 09/23/2023 13:01:25 09/23/2023 13:01:25 ADDRESS: [facility] [place] [id number] PHYS DOC NOTES: MEDICAL INFORMATION: Prescriptions Given: Medications to Continue with No Changes Other Medications alprazolam (alprazolam 0.25 mg Tab) 30 tab(s). metaxalone (metaxalone 800 mg Tab) omeprazole (omeprazole 40 mg Cap-DR) 30 EA, TAKE 1 CAPSULE BY MOUTH EVERY DAY. PATIENT EDUCATION INFORMATION: Instructions: Dizziness Follow up: With: Address: When: YESICA BRANDON [address] [place], [place] [id number] [phone] coComment (1) In 3 days 09/26/2023 DIAGNOSIS: Dizziness; Weakness Normal [facility] ED Patient Summaryon 024 ED Patient Summary ED Patient Summary [address] [address] Patient Discharge Instructions Person Information Name: AUDREY ISAACS Age: 48 Years Arrival Date: 09/23/2023 10:54:19 Discharge Diagnosis: Dizziness; Weakness Primary Care Physician: YESICA NICKERSON CNP Provider Information Primary Provider: Boby Cevallos DO [employer] Helper:Fadi Mccoy PA-C The exam and treatment you received in the Emergency Department were for an urgent problem and are not intended as complete care. It is important that you follow up with a doctor, nurse practitioner, or physician?s assistant media planner for ongoing care. If your symptoms become worse or you do not improve as expected and you are unable to reach your usual health care provider, you should return to the Emergency Department. We are available 24 hours a day. AUDREY ISAACS has been given the following list of patient education materials, prescriptions and follow-up instructions: Follow-up Instructions: With: Address: When: YESICA BRANDON [address] [place], [place] [phone] coComment (1) In 3 days 09/26/2023 In the event that this physician does not participate in your insurance network, please consult with your insurance company to find a nearby participating provider. Patient Education Materials: Dizziness A MESSAGE TO ALL PATIENTS REGARDING OPIOIDS PRESCRIPTION OPIOIDS: WHAT YOU NEED TO KNOW Prescription opioids can be used to help relieve [id number] pain and are often prescribed following a [...] be struggling with addiction, tell your health intensive care unit registered nurse and ask for guidance or call [facility]?S National Helpline at 3-866-857-ELQ (more content not included)... Normal [facility] HEMATOLOGYOrdered By: Siobhan Robles on 09-23-2023 [...] Coag (PPP) [Time] 35.1 second(s) Normal 25.1-36.5 [facility] Comment on above: Result Comment: Para [...] the same coagulation reagent and instrumentation as [facility]. Currently there are no coagulation studies available worldwide for children to 14 days, and no normal ranges. Heparin therapeutic range (represented by Anti-Factor Xa activity of 0.2 - 0.4 U/mL) corresponds to PTT of 56.6 - 109.0 sec. Performed By: #### 1 [id number] #### [facility] [address] [place] [address] INR Coag (PPP) [Relative time] 1.01 {INR} Invalid Interpretation Code [facility] Comment on above: Result Comment: INR results are specifically intended to assess patients stabilized on long-term Anticoagulation therapy suggested INR?s ?Less Intensive Anticoagulation? 2.0 ? 3.0 Conventional Range 3.0 ? 4.5 Performed By: #### 1 [id number] #### [facility] [address] [place] [address] PT Coag (PPP) [Time] 11.3 second(s) Normal 9.4-12.5 [facility] Comment on above: Result Comment: 15 [...] the same coagulation reagent and instrumentation as [facility]. Currently there are no coagulation studies available worldwide for children to 14 days, and no normal ranges. Performed By: #### 1 [id number] #### [facility] [address] [place] [address] Troponin 0 Hr.on 09-23-2023 Troponin HS <2.30 Low 10.10-27.10 [facility] Comment on above: Result Comment: The 95% CI (Confidence Interval) PPV (Positive Predictive Value) for myocardial infarction in females is 38 pg/mL, in males 51 pg/mL. The results should be used in conjunction with clinical conditions of myocardial infarction. (Access High Sensitivity Troponin I Instructions For Use, Angel Ivette, September 2017) Performed By: #### 1 [id number] #### [facility] [address] [place] [address] UA with Cult Rflxon 09-23-19 24 Bilirubin Ql (U) Negative Normal Negative [facility] Comment on above: Performed By: #### 4 [id number] #### [facility] [address] [place] [address] Clarity (U) Clear Normal Clear [facility] Comment on above: Performed By: #### 4 [id number] #### [facility] [facility] [address] [place] [address] Color (U) Light-Yellow Normal Yellow [facility] Comment on above: Result Comment: Micr oscopic readings are only performed on those samples that meet specific criteria set forth by [facility]. Performed By: #### 4 [id number] #### [facility] [address] [place] [address] Glucose Ql (U) Negative Normal Negative [facility] Comment on above: Performed By: #### 4 [id number] #### [facility] [address] [place] [address] Hemoglobin Auto test strip (U) [Mass/Vol] Negative Normal Negative [facility] Comment on above: Performed By: #### 4 [id number] #### [facility] [address] [place] [address] Ketones Auto test strip Ql (U) Negative Normal Negative [facility] Comment on above: Performed By: #### 4 [id number] #### [facility] [address] [place] [address] Leukocyte esterase Auto test strip Ql (U) Negative Normal Negative [facility] Comment on above: Performed By: #### 4 [id number] #### [facility] [address] [place] [address] Nitrite Auto test strip Ql (U) Negative Normal Negative [facility] Comment on above: Performed By: #### 4 [id number] #### [facility] [address] [place] [address] pH (U) 5.5 [pH] Invalid Interpretation Code 5.0-9.0 [facility] Comment on above: Performed By: #### 4 [id number] #### [facility] [address] [place] [address] Protein Ql (U) Negative Normal Negative [facility] Comment on above: Performed By: #### 4 [id number] #### [facility] [address] [place] [address] Specific gravity (U) [Rel density] 1.023 Invalid Interpretation Code 1.005-1.030 [facility] Comment on above: Performed By: #### 4 [id number] #### [facility] [address] [id number] Urobilinogen (U) [Mass/Vol] Negative Normal Negative [facility] Comment on above: Performed By: #### 4 [id number] #### [facility] [address] [place] [address] Type of Urine collection method Clean Catch Normal [facility] Comment on above: Performed By: #### 4 [id number] #### [facility] [address] [id number] URINALYSISOrdered By: SYSTEM SYSTEM on 09-23-2023 Bilirubin [...] that meet specific criteria set forth by [facility]. Glucose Ql (U) Negative Normal [...] Protein Ql (U) Negative Normal Negativemg/d L [facility] UA Auto SS Specific gravity (U) [Rel density] 1.023 *NA* (09/23/23 12:16 PM) Invalid Interpretation Code 1.005 - 1.030 [facility] UA Auto SS Urobilinogen (U) [Mass/Vol] Negative Normal Negativemg/d L [facility] UA Auto SS URINALYSISOrdered By: Fadi Mccoy on 09-23-2023 UA Spec Desc Clean Catch (09/23/23 12:16 PM) Normal [facility] UA Auto SS XR Chest Single Viewon [...] mGy = na DAP = na Normal [facility] eGFRon 09-23-2023 eGFR 79 mL/min/1.73 m2 Normal >=59 [facility] Comment on above: Order Comment: Order added by Discern Expert. Performed By: #### 1 [id number] #### [facility] [address] [place] [address] COVID Quick Testingon 2022 Result Positive [employer] Other No Panel InformationOrdered By: Gopal Potter on 06-28-2022 Cortisol Response to Stimulation See comment [facility] Comment on above: [employer] 11.4 Col: 06/28/22 1000 [place] 30Min 20.6 Col: 06/28/22 1050 [place] 60Min 23.2 Col: 06/28/22 1120 Quick Strepon 06-11-2022 S. pyogenes Org specific cx Ql (Throat) Negative [employer] [facility] [employer] Other Quick Strep [facility] [employer] Other PROF CHEM 8 (BAS METB)on Anion gap [Moles/Vol] 10.7 mmol/L Normal [facility] Comment on above: Performed By: #### B MP #### [facility] [address] [place] [address] Dr. Brandon Hodges Calcium [Mass/Vol] 9.3 mg/dL Normal 8.5-10.1 [facility] Comment on above: Performed By: #### B MP #### [facility] [address] [address] [address] Brandon Hodges Chloride [Moles/Vol] 103 mmol/L Normal 98-107 [facility] Comment on above: Performed By: #### B MP #### [facility] [address] [address] [address] Brandon Hodges CO2 [Moles/Vol] 31.5 mmol/L Normal 21.0-32.0 [facility] Comment on above: Performed By: #### B MP #### [facility] [address] [address] [address] Brandon Hodges Creatinine [Mass/Vol] 0.76 mg/dL Normal 0.55-1.02 [facility] Comment on above: Performed By: #### B MP #### [facility] [address] [address] [address] Brandon Hodges EGFR-AF NEW ZEALANDER >60 Normal >=60 [facility] Comment on above: Performed By: #### B MP #### [facility] [address] [address] [address] Brandon Hodges EGFR-NON AF NEW ZEALANDER >60 Normal >=60 [facility] Comment on above: Performed By: #### B MP #### [facility] [address] [place] [address] Dr. Brandon Hodges Glucose [Mass/Vol] 124 mg/dL Critically high 74-106 T [facility] Comment on above: Performed By: #### B MP #### [facility] [address] [address] [address] Brandon Hodges Potassium [Moles/Vol] 4.2 mmol/L Normal 3.5-5.1 [facility] Comment on above: Performed By: #### B MP #### [facility] [address] [address] [address] Brandon Hodges Sodium [Moles/Vol] 141 mmol/L Normal 136-145 [facility] Comment on above: Performed By: #### B MP #### [facility] [address] [address] [address] Brandon Hodges Urea nitrogen [Mass/Vol] 19.0 mg/dL Critically high 7.0-18.0 [facility] Comment on above: Performed By: #### B MP #### [facility] [address] [address] [address] Brandon Hodges Urea nitrogen/Creatinine [Mass ratio] 25.0 mg/mg Normal [facility] Comment on above: Performed By: #### B MP #### [facility] [address] [address] [address] Brandon Hodges TESTOSTERONE, FREE,DIRECT, T OTALon 04-25-2022 Free Testosterone(Direct) <0.2 Normal 0.0-4.2 [facility] Comment on above: Result Comment: Perf ormed at: BN Performed By: #### I NSULIN #### [facility] [address] [place] [address] Dr. Brandon Hodges Testosterone [Mass/Vol] 3 ng/dL Critically low 4-50 [facility] Comment on above: Result Comment: Perf ormed at: CB Performed By: #### I NSULIN #### [facility] [address] [place] [address] Dr. Brandon Hodges ESTRONEon 04-23-2022 Estrone, Serum 20 pg/mL Normal [facility] Comment on above: Result Comment: Rang e Adult (Premenopausal) 27 - 231 Menstrual Cycle (1-10 days) 19 - 149 Menstrual Cycle (11-20 days) 32 - 176 Menstrual Cycle (21-30 days) 37 - 200 Adult (Postmenopausal) 0 - 125 Performed By: #### I NSULIN #### [facility] [address] [place] [address] Dr. Brandon Hodges REVERSE T3on 04-23-2022 Reverse T3, Serum 36.8 ng/dL Critically high 9.2-24.1 [facility] Comment on above: Result Comment: This test was developed and its performance characteristics determined by [employer]. It has not been cleared or approved by the Food and Drug Administration. Performed By: #### B MP #### [facility] [address] [place] [address] Dr. Brandon Hodges CORTISOLon 04-20-2022 Cortisol 1.0 ug/dL Normal [facility] Comment on above: Result Comment: [place] isol AM 6.2 - 19.4 Cortisol PM 2.3 - 11.9 Performed By: #### C ORTISO #### [facility] [address] [place] [address] Dr. Brandon Hodges DHEA-SULFATEon 04-20-2022 DHEA-Sulfate 55.9 ug/dL Normal 41.2-243.7 [facility] Comment on above: Performed By: #### I CEDRICULIN #### [facility] [address] [place] [address] Dr. Brandon Hodges ESTRADIOLon 04-20-2022 Estradiol 25.1 pg/mL Normal [facility] Comment on above: Result Comment: Adul t Female: Follicular phase 12.5 - 166.0 Ovulation phase 85.8 - 498.0 Luteal phase 43.8 - 211.0 Postmenopausal <6.0 - 54.7 1st trimester 215.0 - >4300.0 Jason ECLIA methodology Performed By: #### B MP #### [facility] [address] [place] [address] Dr. Brandon Hodges INSULINon 04-20-2022 Insulin 30.0 uIU/mL Critically high 2.6-24.9 [facility] Comment on above: Performed By: #### I NSULIN #### [facility] [address] [address] [address] Brandon Hodges PROGESTERONEon 04-20-2022 Progesterone <0.1 Normal [facility] Comment on above: Result Comment: Foll icular phase 0.1 - 0.9 Luteal phase 1.8 - 23.9 Ovulation phase 0.1 - 12.0 First trimester 11.0 - 44.3 Second trimester 25.4 - 83.3 Third trimester 58.7 - 214.0 Postmenopausal 0.0 - 0.1 Performed By: #### B MP #### [facility] [address] [place] [address] Dr. Brandon Hodges SEX HORMONE-BINDING GLOBULIN on 04-20-2022 Sex Horm Binding Glob, Serum 30.3 nmol/L Normal 24.6-122.0 [facility] Comment on above: Performed By: #### B MP #### [facility] [address] [place] [address] Dr. Brandon Hodges FERRITINon 04-19-2022 Ferritin [Mass/Vol] 53.0 ng/mL Normal 6.2-137.0 [facility] Comment on above: Performed By: #### B MP #### [facility] [address] [address] [address] Brandon Hodges FREE T3on 04-19-2022 FREE T3 2.34 pg/mlL Normal 2.18-3.98 [facility] Comment on above: Performed By: #### T SH, T4, FT3, BMP, LIPID, LIVER #### [facility] [address] [place] [address] Dr. Brandon Hodges FREE T4on 04-19-2022 Free T4 [Mass/Vol] 0.92 ng/dL Normal 0.76-1.46 [facility] Comment on above: Performed By: #### B MP #### [facility] [address] [place] [address] Dr. Brandon Hodges GLYCOHEMOGLOBIN A1Con 2022 ADA RECOMMENDATION SEE BELOW Normal [facility] Comment on above: Result Comment: ADA RECOMMENDED LIMIT 4.0 - 6.0 ADA THERAPEUTIC TARGET < 7.0 ACTION SUGGESTED > 7.0 Performed By: #### A 1C #### [facility] [address] [address] [address] Brandon Hodges Glucose [Mass/Vol] 105 mg/dL Normal [facility] Comment on above: Performed By: #### A 1C #### [facility] [address] [address] [address] Brandon Hodges HbA1c (Bld) [Mass fraction] 5.3 % Normal 4.5-6.2 [facility] Comment on above: Performed By: #### A 1C #### [facility] [address] [address] [address] Brandon Hodges LIPID PROFILEon 04-19-2022 CHOL-HDL RATIO NORM SEE BELOW Normal [facility] Comment on above: Result Comment: 3.3 - 4.4 LOW RISK 4.4 - 7.1 AVERAGE RISK 7.1 - 11.0 MODERATE RISK >11.0 HIGH RISK Performed By: #### T SH, T4, FT3, BMP, LIPID, LIVER #### [facility] [address] [place] [address] Dr. Brandon Hodges Cholesterol [Mass/Vol] 258 mg/dL Critically high <=200 [facility] Comment on above: Performed By: #### T SH, T4, FT3, BMP, LIPID, LIVER #### [facility] [address] [place] [address] Dr. Brandon Hodges Cholesterol in HDL [Mass/Vol] 47 mg/dL Normal 40-60 [facility] Comment on above: Performed By: #### T SH, T4, FT3, BMP, LIPID, LIVER #### [facility] [address] [address] [address] Brandon Hodges Cholesterol in LDL [Mass/Vol] 199.0 mg/dL Normal [facility] Comment on above: Performed By: #### T SH, T4, FT3, BMP, LIPID, LIVER #### [facility] [address] [address] [address] Brandon Hodges Cholesterol.total/Chol esterol in HDL [Mass ratio] 5.5 {ratio} Normal [facility] Comment on above: Performed By: #### T SH, T4, FT3, BMP, LIPID, LIVER #### [facility] [address] [address] [address] Brandon Hodges HDL NORMAL > or = 60 mg/dl - LOW CARDIOVASCULAR RISK <40 mg/dl - HIGH CARDIOVASCULAR RISK Normal [facility] Comment on above: Performed By: #### T SH, T4, FT3, BMP, LIPID, LIVER #### [facility] [address] [address] [address] Brandon Hodges LDL CALC NORMAL SEE BELOW Normal [facility] Comment on above: Result Comment: <100 mg/dl OPTIMAL 100 - 129 mg/dl NEAR OR ABOVE OPTIMAL 130 - 159 mg/dl BORDERLINE HIGH 160 - 189 mg/dl HIGH >190 mg/dl VERY HIGH Performed By: #### T SH, T4, FT3, BMP, LIPID, LIVER #### [facility] [address] [place] [address] Dr. Brandon Hodges Triglyceride [Mass/Vol] 60 mg/dL Normal <=150 [facility] Comment on above: Performed By: #### T SH, T4, FT3, BMP, LIPID, LIVER #### [facility] [address] [place] [address] Dr. Brandon Hodges VLDL CALC 12.0 mg/dL Normal [facility] Comment on above: Performed By: #### T SH, T4, FT3, BMP, LIPID, LIVER #### [facility] [address] [address] [address] Brandon Hodges LIVER PROFILEon 04-19-2022 Albumin [Mass/Vol] 4.3 g/dL Normal 3.4-5.0 [facility] Comment on above: Performed By: #### T SH, T4, FT3, BMP, LIPID, LIVER #### [facility] [address] [place] [address] Dr. Brandon Hodges Albumin/Globulin [Mass ratio] 1.3 {ratio} Normal [facility] Comment on above: Performed By: #### T SH, T4, FT3, BMP, LIPID, LIVER #### [facility] [address] [place] [address] Dr. Brandon Hodges ALP [Catalytic activity/Vol] 86 U/L Normal 46-116 [facility] Comment on above: Performed By: #### T SH, T4, FT3, BMP, LIPID, LIVER #### [facility] [address] [place] [address] Dr. Brandon Hodges ALT [Catalytic activity/Vol] 31 U/L Normal 14-59 [facility] Comment on above: Performed By: #### T SH, T4, FT3, BMP, LIPID, LIVER #### [facility] [address] [place] [address] Dr. Brandon Hodges AST [Catalytic activity/Vol] 18 U/L Normal 15-37 [facility] Comment on above: Performed By: #### T SH, T4, FT3, BMP, LIPID, LIVER #### [facility] [address] [place] [address] Dr. Brandon Hodges BILI, CONJUGATED <0.1 Normal 0.0-0.2 [facility] Comment on above: Performed By: #### T SH, T4, FT3, BMP, LIPID, LIVER #### [facility] [address] [place] [address] Dr. Brandon Hodges Bilirubin [Mass/Vol] 0.3 mg/dL Normal 0.2-1.0 [facility] Comment on above: Performed By: #### T SH, T4, FT3, BMP, LIPID, LIVER #### [facility] [address] [place] [address] Dr. Brandon Hodges Globulin (S) [Mass/Vol] 3.4 g/dL Normal [facility] Comment on above: Performed By: #### T SH, T4, FT3, BMP, LIPID, LIVER #### [facility] [address] [place] [address] Dr. Brandon Hodegs Protein [Mass/Vol] 7.7 g/dL Normal 6.4-8.2 [facility] Comment on above: Performed By: #### T SH, T4, FT3, BMP, LIPID, LIVER #### [facility] [address] [place] [address] Dr. Brandon Hodges PROF CHEM 8 (BAS METB)on Anion gap [Moles/Vol] 14.5 mmol/L Normal [facility] Comment on above: Performed By: #### T SH, T4, FT3, BMP, LIPID, LIVER #### [facility] [address] [place] [address] Dr. Brandon Hodges Calcium [Mass/Vol] 9.6 mg/dL Normal 8.5-10.1 [facility] Comment on above: Performed By: #### T SH, T4, FT3, BMP, LIPID, LIVER #### [facility] [address] [place] [address] Dr. Brandon Hodges Chloride [Moles/Vol] 108 mmol/L Critically high 98-107 [facility] Comment on above: Performed By: #### T SH, T4, FT3, BMP, LIPID, LIVER #### [facility] [address] [place] [address] Dr. Brandon Hodges CO2 [Moles/Vol] 26.1 mmol/L Normal 21.0-32.0 [facility] Comment on above: Performed By: #### T SH, T4, FT3, BMP, LIPID, LIVER #### [facility] [address] [place] [address] Dr. Brandon Hodges Creatinine [Mass/Vol] 0.75 mg/dL Normal 0.55-1.02 [facility] Comment on above: Performed By: #### T SH, T4, FT3, BMP, LIPID, LIVER #### [facility] [address] [place] [address] Dr. Brandon Hodges EGFR-AF NEW ZEALANDER >60 Normal >=60 [facility] Comment on above: Performed By: #### T SH, T4, FT3, BMP, LIPID, LIVER #### [facility] [address] [place] [address] Dr. Brandon Hodges EGFR-NON AF NEW ZEALANDER >60 Normal >=60 [facility] Comment on above: Performed By: #### T SH, T4, FT3, BMP, LIPID, LIVER #### [facility] [address] [place] [address] Dr. Brandon Hodges Glucose [Mass/Vol] 122 mg/dL Critically high 74-106 [facility] Comment on above: Performed By: #### T SH, T4, FT3, BMP, LIPID, LIVER #### [facility] [address] [place] [address] Dr. Brandon Hodges Potassium [Moles/Vol] 4.6 mmol/L Normal 3.5-5.1 [facility] Comment on above: Performed By: #### T SH, T4, FT3, BMP, LIPID, LIVER #### [facility] [address] [address] [address] Brandon Hodges Sodium [Moles/Vol] 144 mmol/L Normal 136-145 [facility] Comment on above: Performed By: #### T SH, T4, FT3, BMP, LIPID, LIVER #### [facility] [address] [place] [address] Dr. Brandon Hodges Urea nitrogen [Mass/Vol] 13.0 mg/dL Normal 7.0-18.0 [facility] Comment on above: Performed By: #### T SH, T4, FT3, BMP, LIPID, LIVER #### [facility] [address] [place] [address] Dr. Brandon Hodges Urea nitrogen/Creatinine [Mass ratio] 17.3 mg/mg Normal [facility] Comment on above: Performed By: #### T SH, T4, FT3, BMP, LIPID, LIVER #### [facility] [address] [place] [address] Dr. Brandon Hodges T4on 04-19-2022 T4 [Mass/Vol] 9.00 ug/dL Normal 4.80-13.90 [facility] Comment on above: Performed By: #### T SH, T4, FT3, BMP, LIPID, LIVER #### [facility] [address] [place] [address] Dr. Brandon Hodges TSHon 04-19-2022 TSH 0.335 uIU/mL Critically low 0.358-3.740 [facility] Comment on above: Performed By: #### T SH, T4, FT3, BMP, LIPID, LIVER #### [facility] [address] [place], [place] [address] Dr. Brandon Hodges VITAMIN D 25 OHon 04-19-2022 VIT D 25-OH 29.4 ng/mL Normal [facility] Comment on above: Performed By: #### B MP #### [facility] [address] [place], [place] [address] Dr. Brandon Hodges VIT D RANGES SEE BELOW Normal [facility] Comment on above: Result Comment: <20 ng/mL Vit D deficient 20 - <30 ng/mL Vit D insufficient 30 - 100 ng/mL Vit D sufficient >100 ng/mL Potential Toxicity Performed By: #### B MP #### [facility] [address] [place], [place] [address] Dr. Brandon Hodges MG MAMM SCREEN 3D KRISTI CADon 01-11-2022 MG MAMM SCREEN 3D KRISTI CAD Patient: AUDREY ISAACS Exam Date: 01/11/2022 : 1975 Gender:F Ordering : [facility]ERSON [facility] Admission #: [id number] Family : Order #: [id number] CLICK HERE TO VIEW EXAM RADIOLOGY REPORT [...] leukemia cancer at age 72. LOCATION: [facility] BREAST COMPOSITION: Heterogeneously dense,which may obscure [...] Hollingsworth M.D. on 01/15/2022 at 12:03 Normal [facility] CHEMISTRYOrdered By: SYSTEM SYSTEM on 08-17-2021 Anion gap [Moles/Vol] 9 mmol/L Normal 6 - 16 mEq/L [facility] Remisol Calcium [Mass/Vol] 9.2 mg/dL Normal 8.9 - 11. 1 mg/dL [facility] Chloride [Moles/Vol] 107 mmol/L Normal 101 - 1 11 mmol/L [facility] Remisol CO2 [Moles/Vol] 27 mmol/L Normal 21 - 31 mmol/L [facility] Creatinine [Mass/Vol] 0.8 mg/dL Normal 0.5 - 1.3 mg/dL [facility] GFR/1.73 sq M.predicted among blacks MDRD (S/P/Bld) [Vol rate/Area] mL/min/1.73 m2 Normal >=59mL/min/1 .73 m2 [facility] Chem S GFR/1.73 sq M.predicted among non-blacks MDRD (S/P/Bld) [Vol rate/Area] mL/min/1.73 m2 Normal >=59mL/min/1 .73 m2 [facility] Chem S Glucose [Mass/Vol] 96 mg/dL Normal [...] by Colt Silvestre on 08/01/2021 1109 Normal [facility] THYROGLOBULINon 06-24-2021 Thyroglobulin 3.9 ng/mL Normal [facility] [...] ng/mL. Performed By: #### B MP #### [facility] [address] [place] [address] Dr. Brandon Hodges RENITA by IFAon 06-18-2021 Antinuclear Antibodies, IFA Negative Normal [facility] Comment on above: Result Comment: Nega tive <1:80 Borderline 1:80 Positive >1:80 ICAP nomenclature: AC-0 For more information about Hep-2 cell patterns use ANApatterns.org, the official website for the International Consensus on Antinuclear Antibody (RENITA) Patterns (ICAP). Performed By: #### I NSULIN #### [facility] [address] [place] [address] Dr. Brandon Hodges ANTISTREPTOLYSIN O AB (ASO)o n 06-16-2021 Antistreptolysin O Ab 108.1 IU/mL Normal 0.0-200.0 [facility] Comment on above: Performed By: #### I NSULIN #### [facility] [address] [place] [address] Dr. Brandon Hodges RHEUMATOID FACTORon 06-17-19 RA Latex Turbid. 11.1 IU/mL Normal <14.0 [facility] Comment on above: Performed By: #### I NSULIN #### [facility] [address] [place] [address] Dr. Brandon Hodges CBC AUTO DIFFon 06-15-2021 BASO # 0.0 103/ul Normal 0.0-0.1 [facility] Comment on above: Performed By: #### I NSULIN #### [facility] [address] [place] [address] Dr. Brandon Hodges Basophils/100 WBC (Bld) 0.4 % Normal 0.2-2.0 [facility] Comment on above: Performed By: #### I NSULIN #### [facility] [address] [place] [address] Dr. Brandon Hodges EO # 0.0 103/ul Normal 0.0-0.7 [facility] Comment on above: Performed By: #### I NSULIN #### [facility] [address] [place] [address] Dr. Brandon Hodges Eosinophils/100 WBC (Bld) 0.7 % Critically low 0.9-7.0 [facility] Comment on above: Performed By: #### I NSULIN #### [facility] Laboratory [address] [place] [address] Dr. Brandon Hodges Erythrocyte distribution width (RBC) [Ratio] 12.8 % Normal 11.0-15.0 [facility] Comment on above: Performed By: #### I NSULIN #### [facility] [address] [place] [address] Dr. Brandon Hodges Hematocrit (Bld) [Volume fraction] 43.3 % Normal 36.0-48.0 [facility] Comment on above: Performed By: #### I NSULIN #### [facility] [address] [place] [address] Dr. Brandon Hodges Hemoglobin (Bld) [Mass/Vol] 14.1 g/dL Normal 12.0-16.0 [facility] Comment on above: Performed By: #### I NSULIN #### [facility] [address] [place] [address] Dr. Brandon Hodges IG # 0.00 10e3/ul Normal 0.00-0.03 [facility] Comment on above: Performed By: #### I NSULIN #### [facility] [address] [place] [address] Dr. Brandon Hodges IG % 0.0 % Normal 0.0-0.5 [facility] Comment on above: Performed By: #### I NSULIN #### [facility] [address] [place] [address] Dr. Brandon Hodges LYMPH # 1.6 103/ul Normal 1.2-3.8 [facility] Comment on above: Performed By: #### I NSULIN #### [facility] [address] [place] [address] Dr. Brandon Hodges Lymphocytes/100 WBC (Bld) 35.1 % Normal 20.5-60.0 [facility] Comment on above: Performed By: #### I NSULIN #### [facility] [address] [place] [address] Dr. Brandon Hodges MANUAL DIFF REQ NO Normal [facility] Comment on above: Performed By: #### I NSULIN #### [facility] [address] [place] [address] Dr. Brandon Hodges MCH (RBC) [Entitic mass] 29.4 pg Normal 26.7-34.0 [facility] Comment on above: Performed By: #### I NSULIN #### [facility] [address] [place] [address] Dr. Brandon Hodges MCHC (RBC) [Mass/Vol] 32.6 g/dL Normal 29.9-35.2 [facility] Comment on above: Performed By: #### I NSULIN #### [facility] [address] [place] [address] Dr. Brandon Hodges MCV (RBC) [Entitic vol] 90.2 fL Normal 81.0-99.0 [facility] Comment on above: Performed By: #### I NSULIN #### [facility] [address] [place] [address] Dr. Brandon Hodges MONO # 0.3 103/ul Normal 0.3-0.8 [facility] Comment on above: Performed By: #### I NSULIN #### [facility] [address] [place] [address] Dr. Brandon Hodges Monocytes/100 WBC (Bld) 6.8 % Normal 1.7-12.0 [facility] Comment on above: Performed By: #### I NSULIN #### [facility] [address] [place] [address] Dr. Brandon Hodges NEUT # 2.6 103/ul Normal 1.4-6.5 [facility] Comment on above: Performed By: #### I NSULIN #### [facility] [address] [address] [address] Brandon Hodges Neutrophils/100 WBC (Bld) 57.0 % Normal 43.0-75.0 [facility] Comment on above: Performed By: #### I NSULIN #### [facility] [address] [address] [address] Brandon Hodges Platelet mean volume (Bld) [Entitic vol] 10.8 fL Normal 9.5-13.5 [facility] Comment on above: Performed By: #### I NSULIN #### [facility] [address] [address] [address] Brandon Hodges PLT 220 103/ul Normal 150-450 [facility] Comment on above: Performed By: #### I NSULIN #### [facility] [address] [place] [address] Dr. Brandon Hodges RBC 4.80 106/ul Normal 4.20-5.40 [facility] Comment on above: Performed By: #### I NSULIN #### [facility] [address] [address] [address] Brandon Hodges WBC 4.6 103/ul Normal 4.0-11.0 [facility] Comment on above: Performed By: #### I NSULIN #### [facility] [address] [place] [address] Dr. Brandon Hodges CRPon 06-15-2021 CRP [Mass/Vol] mg/L Normal <=1.0 [facility] Comment on above: Performed By: #### T SH, T4, FT3, BMP, LIPID, LIVER #### [facility] [address] [address] [address] Brandon Hodges FREE T4on 06-15-2021 Free T4 [Mass/Vol] 0.86 ng/dL Normal 0.76-1.46 [facility] Comment on above: Performed By: #### I NSULIN #### [facility] [address] [place] [address] Dr. Brandon Hodges LIPID PROFILEon 06-15-2021 CHOL-HDL RATIO NORM SEE BELOW Normal [facility] Comment on above: Result Comment: 3.3 - 4.4 LOW RISK 4.4 - 7.1 AVERAGE RISK 7.1 - 11.0 MODERATE RISK >11.0 HIGH RISK Performed By: #### T SH, T4, FT3, BMP, LIPID, LIVER #### [facility] [address] [address] [address] Brandon Hodges Cholesterol [Mass/Vol] 211 mg/dL Critically high <=200 [facility] Comment on above: Performed By: #### T SH, T4, FT3, BMP, LIPID, LIVER #### [facility] [address] [address] [address] Brandon Hodges Cholesterol in HDL [Mass/Vol] 37 mg/dL Critically low 40-60 [facility] Comment on above: Performed By: #### T SH, T4, FT3, BMP, LIPID, LIVER #### [facility] [address] [address] [address] Brandon Hodges Cholesterol in LDL [Mass/Vol] 151.4 mg/dL Normal [facility] Comment on above: Performed By: #### T SH, T4, FT3, BMP, LIPID, LIVER #### [facility] [address] [address] [address] Brandon Hodges Cholesterol.total/Chol esterol in HDL [Mass ratio] 5.7 {ratio} Normal [facility] Comment on above: Performed By: #### T SH, T4, FT3, BMP, LIPID, LIVER #### [facility] [address] [place] [address] Dr. Brandon Hodges HDL NORMAL > or = 60 mg/dl - LOW CARDIOVASCULAR RISK <40 mg/dl - HIGH CARDIOVASCULAR RISK Normal [facility] Comment on above: Performed By: #### T SH, T4, FT3, BMP, LIPID, LIVER #### [facility] [address] [address] [address] Brandon Hodges LDL CALC NORMAL SEE BELOW Normal [facility] Comment on above: Result Comment: <100 mg/dl OPTIMAL 100 - 129 mg/dl NEAR OR ABOVE OPTIMAL 130 - 159 mg/dl BORDERLINE HIGH 160 - 189 mg/dl HIGH >190 mg/dl VERY HIGH Performed By: #### T SH, T4, FT3, BMP, LIPID, LIVER #### [facility] [address] [address] [address] Brandon Hodges Triglyceride [Mass/Vol] 113 mg/dL Normal <=150 [facility] Comment on above: Performed By: #### T SH, T4, FT3, BMP, LIPID, LIVER #### [facility] [address] [place] [address] Dr. Brandon Hodges VLDL CALC 22.6 mg/dL Normal [facility] Comment on above: Performed By: #### T SH, T4, FT3, BMP, LIPID, LIVER #### [facility] [address] [place] [address] Dr. Brandon Hodges PROF 14(COMP METB)on 022 Albumin [Mass/Vol] 3.8 g/dL Normal 3.4-5.0 [facility] Comment on above: Performed By: #### T SH, T4, FT3, BMP, LIPID, LIVER #### [facility] [address] [place] [address] Dr. Brandon Hodges Albumin/Globulin [Mass ratio] 1.2 {ratio} Normal [facility] Comment on above: Performed By: #### T SH, T4, FT3, BMP, LIPID, LIVER #### [facility] [address] [place] [address] Dr. Brandon Hodges ALP [Catalytic activity/Vol] 75 U/L Normal 46-116 [facility] Comment on above: Performed By: #### T SH, T4, FT3, BMP, LIPID, LIVER #### [facility] [address] [place] [address] Dr. Brandon Hodges ALT [Catalytic activity/Vol] 26 U/L Normal 14-59 [facility] Comment on above: Performed By: #### T SH, T4, FT3, BMP, LIPID, LIVER #### [facility] [address] [place] [address] Dr. Brandon Hodges Anion gap [Moles/Vol] 10.2 mmol/L Normal [facility] Comment on above: Performed By: #### T SH, T4, FT3, BMP, LIPID, LIVER #### [facility] [address] [place] [address] Dr. Brandon Hodges AST [Catalytic activity/Vol] 10 U/L Critically low 15-37 [facility] Comment on above: Performed By: #### T SH, T4, FT3, BMP, LIPID, LIVER #### [facility] [address] [place] [address] Dr. Brandon Hodges Bilirubin [Mass/Vol] 0.4 mg/dL Normal 0.2-1.0 [facility] Comment on above: Performed By: #### T SH, T4, FT3, BMP, LIPID, LIVER #### [facility] [address] [place] [address] Dr. Brandon Hodges Calcium [Mass/Vol] 8.3 mg/dL Critically low 8.5-10.1 [facility] Comment on above: Performed By: #### T SH, T4, FT3, BMP, LIPID, LIVER #### [facility] [address] [place] [address] Dr. Brandon Hodges Chloride [Moles/Vol] 103 mmol/L Normal 98-107 [facility] Comment on above: Performed By: #### T SH, T4, FT3, BMP, LIPID, LIVER #### [facility] [address] [place] [address] Dr. Brandon Hodges CO2 [Moles/Vol] 28.8 mmol/L Normal 21.0-32.0 [facility] Comment on above: Performed By: #### T SH, T4, FT3, BMP, LIPID, LIVER #### [facility] [address] [place] [address] Dr. Brandon Hodges Creatinine [Mass/Vol] 0.81 mg/dL Normal 0.55-1.02 [facility] Comment on above: Performed By: #### T SH, T4, FT3, BMP, LIPID, LIVER #### [facility] [address] [place] [address] Dr. Brandon Hodges EGFR-AF NEW ZEALANDER >60 Normal >=60 [facility] Comment on above: Performed By: #### T SH, T4, FT3, BMP, LIPID, LIVER #### [facility] [address] [address] [address] Brandon Hodges EGFR-NON AF NEW ZEALANDER >60 Normal >=60 [facility] Comment on above: Performed By: #### T SH, T4, FT3, BMP, LIPID, LIVER #### [facility] [address] [address] [address] Brandon Hodges Globulin (S) [Mass/Vol] 3.1 g/dL Normal [facility] Comment on above: Performed By: #### T SH, T4, FT3, BMP, LIPID, LIVER #### [facility] [address] [place] [address] Dr. Brandon Hodges Glucose [Mass/Vol] 95 mg/dL Normal 74-106 [facility] Comment on above: Performed By: #### T SH, T4, FT3, BMP, LIPID, LIVER #### [facility] [address] [address] [address] Brandon Hodges Potassium [Moles/Vol] 3.9 mmol/L Normal 3.5-5.1 [facility] Comment on above: Performed By: #### T SH, T4, FT3, BMP, LIPID, LIVER #### [facility] [address] [place] [address] Dr. Brandon Hodges Protein [Mass/Vol] 6.9 g/dL Normal 6.1-8.2 [facility] Comment on above: Performed By: #### T SH, T4, FT3, BMP, LIPID, LIVER #### [facility] [address] [address] [address] Brandon Hodges Sodium [Moles/Vol] 138 mmol/L Normal 136-145 [facility] Comment on above: Performed By: #### T SH, T4, FT3, BMP, LIPID, LIVER #### [facility] [address] [address] [address] Brandon Hodges Urea nitrogen [Mass/Vol] 20.0 mg/dL Critically high 7.0-18.0 [facility] Comment on above: Performed By: #### T SH, T4, FT3, BMP, LIPID, LIVER #### [facility] [address] [place] [address] Dr. Brandon Hodges Urea nitrogen/Creatinine [Mass ratio] 24.7 mg/mg Normal [facility] Comment on above: Performed By: #### T SH, T4, FT3, BMP, LIPID, LIVER #### [facility] [address] [place] [address] Dr. Brandon Hod[facility] <1 Normal <=20 [facility] Comment on above: Performed By: #### B MP #### [facility] [address] [place] [address] Dr. Brandon Hodegs TSHon 06-15-2021 TSH 1.006 uIU/mL Normal 0.470-4.680 [facility] Comment on above: Performed By: #### T SH, T4, FT3, BMP, LIPID, LIVER #### [facility] [address] [place] [address] Dr. Brandon Hodges TSH RANGE SEE BELOW Normal [facility] Comment on above: Result Comment: <0.3 4 UIU/ml HYPERTHYROID 0.34-5.60 UIU/ml EUTHYROID >5.60 UIU/ml HYPOTHYROID Performed By: #### T SH, T4, FT3, BMP, LIPID, LIVER #### [facility] [address] [place] [address] Dr. Brandon Hodges URIC ACID SERUMon 06-15-2021 Urate [Mass/Vol] 4.2 mg/dL Normal 2.5-6.2 [facility] Comment on above: Performed By: #### T SH, T4, FT3, BMP, LIPID, LIVER #### [facility] [address] [place] [address] Dr. Brandon Hodges VITAMIN D 25 OHon 06-15-2021 VIT D 25-OH 47.6 ng/mL Normal [facility] Comment on above: Performed By: #### B MP #### [facility] [address] [address] [address] Brandon Hodges VIT D RANGES SEE BELOW Normal [facility] Comment on above: Result Comment: <20 ng/mL Vit D deficient 20 - <30 ng/mL Vit D insufficient 30 - 100 ng/mL Vit D sufficient >100 ng/mL Potential Toxicity Performed By: #### B MP #### [facility] [address] [address] [address] Brandon Hodges XR KNEE KRISTI 3 [...] by: DOUGLAS SOLANO Date: 2021-06-14 13:35 Normal [facility] Vital Signs Date Time Vital Sign Value Performing Clinician Faci lity 12-04-2023 09:33-0400 Body height 177.8 cm Yesica Nickerson REGISTERED DENTAL ASSISTANT Work Phone: [facility] 12-04-2023 09:33-0400 Body mass index (BMI) [Ratio] 33.23 kg/m2 Yesica Nickerson REGISTERED DENTAL ASSISTANT Work Phone: [facility] 12-04-2023 09:33-0400 Body temperature 98.8 [degF] Yesica Nickerson REGISTERED DENTAL ASSISTANT Work Phone: [facility] 12-04-2023 09:33-0400 Body weight 105.05 kg Yesica Nickerson REGISTERED DENTAL ASSISTANT Work Phone: [facility] 12-04-2023 09:33-0400 Diastolic blood pressure 82 mm[Hg] Yesica Nickerson REGISTERED DENTAL ASSISTANT Work Phone: [facility] 12-04-2023 09:33-0400 Heart rate 70 /min Yesica Nickerson REGISTERED DENTAL ASSISTANT Work Phone: [facility] 12-04-2023 09:33-0400 Respiratory rate 18 /min Yesica Nickerson REGISTERED DENTAL ASSISTANT Work Phone: [facility] 12-04-2023 09:33-0400 SaO2% (BldA) [Mass fraction] 99 % Yesica Nickerson REGISTERED DENTAL ASSISTANT Work Phone: [facility] 12-04-2023 09:33-0400 Systolic blood pressure 132 mm[Hg] Yesica Nickerson REGISTERED DENTAL ASSISTANT Work Phone: [facility] 09-23-2023 13:00-0400 Diastolic blood pressure 85 mm[Hg] Boby Ball[facility] 09-23-2023 13:00-0400 Heart rate 69 /min Boby Mart [facility] 09-23-2023 13:00-0400 Mean blood pressure 99 mm[Hg] Boby Mart [facility] 09-23-2023 13:00-0400 Respiratory rate 16 /min Boby Mart [facility] 09-23-2023 13:00-0400 SaO2% (BldA) [Mass fraction] 98 % Boby Mart [facility] 09-23-2023 13:00-0400 Systolic blood pressure 127 mm[Hg] Boby Mart [facility] 09-23-2023 12:00-0400 Diastolic blood pressure 82 mm[Hg] Boby Mart [facility] 09-23-2023 12:00-0400 Heart rate 68 /min Boby Mart [facility] 09-23-2023 12:00-0400 Mean blood pressure 94 mm[Hg] Boby Mart [facility] 09-23-2023 12:00-0400 SaO2% (BldA) [Mass fraction] 96 % Boby Cevallos [facility] 09-23-2023 12:00-0400 Systolic blood pressure 119 mm[Hg] Boby Ballesterose [facility] 09-23-2023 11:05-0400 gluc 89 mg/dL Boby Ballesterose [facility] 09-23-2023 11:05-0400 gluc Boby Cevallos [facility] 09-23-2023 10:59-0400 Body temperature 98.6 [degF] Boby Cevallos [facility] 09-23-2023 10:59-0400 Diastolic blood pressure 96 mm[Hg] Boby Cevallos [facility] 09-23-2023 10:59-0400 Heart rate 84 /min Boby Ballesterose [facility] 09-23-2023 10:59-0400 Respiratory rate 18 /min Boby Cevallos [facility] 09-23-2023 10:59-0400 SaO2% (BldA) [Mass fraction] 99 % Boby Cevallos [facility] 09-23-2023 10:59-0400 Systolic blood pressure 140 mm[Hg] Boby Cevallos [facility] 01-20-2023 17:00-0500 Body height 176.53 cm Tika Otero Other [employer] Other 01-20-2023 17:00-0500 Body mass index (BMI) [Ratio] 33.85 kg/m2 Tika Otero Other [employer] Other 01-20-2023 17:00-0500 Body temperature 98 [degF] Tika Otero Other [employer] Other 01-20-2023 17:00-0500 Body weight 105.51 kg Tika Otero Other [employer] Other 01-20-2023 17:00-0500 Respiratory rate 18 /min Tika Otero Other [employer] Other 01-20-2023 17:00-0500 SaO2% (BldA) [Mass fraction] 99 % Tika Otero Other [employer] Other 06-11-2022 15:50-0400 Body height 176.53 cm Elies Stone Other [employer] Other 06-11-2022 15:50-0400 Body mass index (BMI) [Ratio] 36.39 kg/m2 Elise Stone Other [employer] Other 06-11-2022 15:50-0400 Body temperature 97.3 [degF] Elise Stone Other [employer] Other 06-11-2022 15:50-0400 Body weight 113.4 kg Elise Stone Other [employer] Other 06-11-2022 15:50-0400 Respiratory rate 18 /min Elise Stone Other [employer] Other 06-11-2022 15:50-0400 SaO2% (BldA) [Mass fraction] 99 % Elise Stone Other [employer] Other 02-28-2022 15:11-0500 Blood Pressure Location Juancarlos Christofferson [facility] 02-28-2022 15:11-0500 Diastolic blood pressure 80 mm[Hg] Juancarlos Christofferson [facility] 02-28-2022 15:11-0500 Heart rate 84 /min Juancarlos Christofferson [facility] 02-28-2022 15:11-0500 Respiratory rate 18 /min Juancarlos Christofferson [facility] 02-28-2022 15:11-0500 SaO2% (BldA) [Mass fraction] 96 % Juancarlos Christofferson [facility] 02-28-2022 15:11-0500 Systolic blood pressure 140 mm[Hg] Juancarlos Christofferson [facility] 11-19-2021 15:13-0400 Blood Pressure Location Juancarlos Christofferson [facility] 11-19-2021 15:13-0400 Diastolic blood pressure 75 mm[Hg] Juancarlos Christofferson [facility] 11-19-2021 15:13-0400 Heart rate 86 /min Juancarlos Christofferson [facility] 11-19-2021 15:13-0400 Respiratory rate 18 /min Juancarlos Christofferson [facility] 11-19-2021 15:13-0400 SaO2% (BldA) [Mass fraction] 96 % Juancarlos Christofferson [facility] 11-19-2021 15:13-0400 Systolic blood pressure 126 mm[Hg] Juancarlos Christofferson [facility] Encounters Encounter Date Encounter Type Care Provider Facility Start: 01-08-2024 End: 01-08-2024 Milena Quispe MD Work Phone: [facility] Start: 01-08-2024 End: 01-08-2024 Bamboo flowsheet Radhika Quispe MD Work Phone: [facility] Start: 01-08-2024 End: 01-08-2024 Postop follow up visit related to original px Radhika Quispe MD Work Phone: [facility] Comment on above: Postoperative care f or cataract (Primary Dx) Start: 01-08-2024 End: 01-08-2024 ambulatory RADHIKA QUISPE Not Available Start: 01-05-2024 End: 01-05-2024 Refill Yesica Nickerson REGISTERED DENTAL ASSISTANT Work Phone: [facility] Comment on above: Peptic ulcer without hemorrhage, perforation, or obstruction Start: 12-25-2023 End: 12-25-2023 Patient encounter procedure Radhika Quispe MD Work Phone: [facility] Comment on above: 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); Ptosis of both eyelids Start: 12-25-2023 End: 12-25-2023 ambulatory RADHIKA QUISPE Not Available Start: 12-04-2023 End: 12-04-2023 Patient encounter procedure Yesica Nickerson Work Phone: [facility] [address] Work Phone: Start: 12-04-2023 End: 12-04-2023 ambulatory Yesica Nickerson Work Phone: [facility] Work Phone: Start: 12-04-2023 End: 12-04-2023 Bamboo flowsheet Yesica Nickerson REGISTERED DENTAL ASSISTANT Work Phone: [facility] Start: 12-04-2023 End: 12-04-2023 Bamboo flowsheet Yesica Nickerson REGISTERED DENTAL ASSISTANT Work Phone: [facility] Start: 12-04-2023 End: 12-04-2023 ambulatory YESICA AICHHOLZ Not Available Start: 12-04-2023 End: 12-04-2023 Office outpatient visit 15 minutes Yesica Nickerson REGISTERED DENTAL ASSISTANT Work Phone: [facility] Comment on above: RENITA positive (Primar y Dx); Peptic ulcer without hemorrhage, perforation, or obstruction; Varicose veins of both lower extremities with pain; Class 1 obesity without serious comorbidity with body mass index (BMI) of 33.0 to 33.9 in adult, unspecified obesity type; Tobacco user; Gastroesophageal reflux disease without esophagitis Start: 10-30-2023 End: 10-30-2023 ambulatory YESICA AICRYAN Not Available Start: 10-16-2023 End: 10-16-2023 ambulatory RADHIKA QUISPE Not Available Start: 09-25-2023 End: 09-25-2023 ambulatory SUNNI Darby QUINCY Not Available Start: 09-24-2023 End: 09-24-2023 ambulatory YESICA AICHHOLZ Not Available Start: 09-23-2023 End: 09-23-2023 Emergency department patient visit Boby Cevallos [facility] Start: 08-05-2023 End: 08-05-2023 ambulatory YESICA AICHHOLZ Not Available Start: 05-27-2023 End: 05-27-2023 ambulatory ZEESHAN Collins KELLEY Not Available Start: 04-29-2023 End: 04-29-2023 ambulatory YESICA AICHHOLZ Not Available Start: 01-20-2023 End: 01-20-2023 ambulatory Tika Otero Other [employer] Other Start: 01-20-2023 Office outpatient vi sit 15 minutes Tika Otero [facility] [place] Start: 06-28-2022 End: 06-28-2022 ambulatory Yesica Nickerson Work Phone: [facility] Work Phone: Start: 06-28-2022 End: 06-28-2022 Discharged Recurring Yesica Nickerson Work Phone: [facility] Work Phone: Start: 06-11-2022 End: 06-11-2022 ambulatory Elise Stone Other [facility] [employer] Other Start: 06-11-2022 Office outpatient ne w 30 minutes Elise Stone [facility] [place] Start: 05-18-2022 End: 05-19-2022 ambulatory [employer]ATIONSH[employer] MANAGER YESICA NELSONEVELYNChristine Facility:[facility] Start: 04-19-2022 End: 04-20-2022 ambulatory BUSINESS B[employer] RELATIONSHIP MANAGER YESICA NELSONEVELYNChristine Facility:[facility] Start: 02-28-2022 End: 02-28-2022 Patient encounter procedure Juancarlos Giraldo [facility] Start: 01-11-2022 End: 01-12-2022 ambulatory [employer] RELATIONSHIP MANAGER YESICA CASIEPatienceEVELYNChristine Facility:[facility] Start: 11-29-2021 End: 03-03-2022 Preprocedural examination done Zeeshan Benson [facility] Start: 11-29-2021 End: 03-03-2022 Recurring Zeeshan Benson [facility] Start: 11-19-2021 End: 11-19-2021 Patient encounter procedure Juancarlos Giraldo [facility] Start: 08-17-2021 End: 08-17-2021 Patient encounter procedure Zeeshan Benson [facility] Start: 06-15-2021 End: 06-16-2021 ambulatory BUSINESS B[employer] RELATIONSHIP MANAGER YESICA NICKERSON Facility:[facility] Start: 06-14-2021 End: 06-15-2021 ambulatory BUSINESS B[employer] RELATIONSHIP MANAGER YESICA BRANDON Facility:[facility] Procedures Date Procedure Procedure Detail Performing Clinician Start: 05-12-2023 Mammography Yesica white REGISTERED DENTAL ASSISTANT Work Phone: Plan of Treatment Date Care Activity Detail Author Start: 05-11-2026 Screening for malign ant neoplasm of colon [facility] Start: 05-11-2024 Screening for malign ant neoplasm of breast Mammogram [facility] Start: 01-08-2024 End: 01-08-2024 Patient encounter procedure [facility] Comment on above: Arrived Start: 12-25-2023 End: 12-25-2023 Patient encounter procedure 12/25/2023 3:00 PM EST Procedure Visit [facility] [address] [place] [address] Radhika Quispe MD [address] [place] [address] [facility] Start: 12-04-2023 Hemolytic complement CH50 level [facility] Start: 06-01-2005 Screening for malign ant neoplasm of cervix HPV/Cotest [facility] Start: 06-01-1996 Screening for malign ant neoplasm of cervix Pap Smear [facility] Start: 1975 Screening for malign ant neoplasm of colon [facility] Complement C3 [Mass/volume] in Serum or Plasma [facility] Complement C4 [Mass/volume] in Serum or Plasma [facility] Payers Date Payer Category Payer Self-pay [id number] 2021 [facility] er [id number] .[id number] 5 1975 Unknown [id number] 2.16.840.1.518456.3.579 .2.593 1975 Unknown [id number] 2.16.840.1.424679.3.579 .2.593 1975 Unknown [id number] 2.16.840.1.640598.3.579 .2.593 1975 Unknown [id number] 2.16.840.1.199128.3.579 .2.593 1975 Unknown [id number] 2.16.840.1.708274.3.579 .2.593 1975 Unknown [id number] 2.16.840.1.466925.3.579 .2.727 1975 Unknown [id number] 2.16.840.1.685582.3.579 .2.727 1975 Unknown [id number] 2.16.840.1.707986.3.579 .2.125 1975 Unknown [id number] 2.16.840.1.109313.3.579 .2.1258 1975 Unknown [id number] 2.16.840.1.418054.3.579 .2.1258 1975 Unknown [id number] 2.16.840.1.331237.3.579 .2.125 1975 Unknown [id number] 2.16.840.1.545051.3.579 .2.1258 1975 Unknown [id number] 2.16.840.1.721427.3.579 .2.125 1975 Unknown [id number] 2.16.840.1.867143.3.579 .2.1258 1975 Unknown [id number] 2.16.840.1.490754.3.579 .2.1258 1975 Unknown [id number] 2.16.840.1.502825.3.579 .2.1259 1975 Unknown [id number] 2.16.840.1.140463.3.579 .2.1259 1975 Unknown [id number] 2.16.840.1.127574.3.579 .2.1259 1959 Unknown [id number] Private Health Insurance [employer] [id number] Unknown [id number] 2.16.840.1.952763.3.579 .2.531 Social History Date Type Detail Facility Tobacco smoking status No Smokin g Status Entered [facility] Start: 04-28-2023 End: 04-29-2023 Sex Assigned At Female [facility] Start: 02-28-2022 Tobacco smoking status Light t obacco smoker (finding) [facility] Start: 1975 Sex Assigned At Female F [facility] Start: 10-16-2023 [facility] History of tobacco use Cigarette Smoker [facility] Start: 04-28-2023 End: 10-16-2023 Cigarettes smoked current (pack per day) - Reported 0.5 [facility] Start: 10-30-2023 End: 01-08-2024 Alcoholic beverage intake Ex-drinker (finding) [facility] Do you belong to any clubs or organizations such as evangelical groups, unions, fraternal or athletic groups, or [...] - these days [OSQ] To some extent [facility] (I/We) worried wheth er (my/our) food would run out before (I/we) got money to buy more. Never true [facility] Start: 04-19-2023 Alcohol Comment 2-4 times a month [facility] Start: 1975 Sex assigned at Not on file [facility] Start: 04-09-2018 Tobacco smoking stat [facility] Smoker (finding) [facility] Functional Status Date Assessment Result Facility 09-23-2023 Functional Status N/A [facility] 02-28-2022 Functional Status No [facility] 11-19-2021 Functional Status N/A [facility] Clinical Notes 06-11-2022 to 01-08-2024 Radhika Quispe MD - 01/08/2024 9:30 AM Татьяна Quispe MD - 12/25/2023 3:00 PM Zohra Nickerson NP - 12/04/2023 10:22 AM Kyra Nickerson NP - 12/04/2023 10:22 AM EDT Note Date & Type Note Facility 01-08-2024 History of Present illness Narrative Assessment/Plan (vit) e cream to suture line documented in this encounter [facility] 12-25-2023 History of Present illness Narrative Assessment/Plan [...] Radhika Quispe MD documented in this encounter [facility] 12-04-2023 History of Present illness Narrative Associated Problem(s): Tobacco user Vapes The patient has been advised of the risks of continued smoking: stroke, MT, all forms of cancer, lung disease, and [...] Medical History: Diagnosis Date Anxiety and depression (CMS/HCC) 04/29/2023 Arthritis Bilateral chronic knee pain 04/29/2023 [...] of the risks of continued smoking: stroke, MT, all forms of cancer, lung disease, and [...] 40mg documented in this encounter [facility] 09-23-2023 Hospital Discharge instructions Patient [...] balance is good. If you need to caseworker intake one place for a long time, move [...] Watch your dizziness for any changes. Take wkws-qea-hexqfiz and prescription medicines only as told by [...] Document Reviewed: 01/08/2021 Elsevier Patient Education 2022 Animated Speech. Follow Up Care 09/23/2023 10:55:56 With:YESICAWilner NICKERSON Address: [address] [place] [address] [phone] Business (1) When:09/26/2023 12:52:48 [facility] 09-23-2023 Note ED Patient Education Note [...] is good. ? If you need to caseworker intake one place for a long time, move [...] your dizziness for any changes. ? Take oaka-awg-purusfw and prescription medicines only as told by [...] provider. Document Revised: 01/08/2021 Document Reviewed: 01/08/2021 [employer] Patient Education ? 2022 Animated Speech. [facility] 01-20-2023 Evaluation note Encounter Date Diagnosis [...] no improvement in 2 to 3 days [employer] Other 04-25-2023 Evaluation note* Encounter Date Diagnosis [...] understanding and is agreeable with treatment plan. [employer] Other Evaluation + Plan note No data available for this section [facility] Future Appointments Appointment Date:02/28/2022 03:15:00 PM Scheduled Provider:Juancarlos Giraldo MD Location:.[facility]iology Clinic Appointment Type:[facility] (FT) [facility] information available [facility] Work Phone: Evaluation note* Diagnosis [...] esophagitis Esophageal reflux documented in this encounter [facility] HealthcareEvaluation note* Diagnosis Bilateral lower extremity edema- [...] ptosis of eyelid documented [facility] encounter [facility]* Diagnosis Bilateral lower extremity edema- [...] Gastroesophageal reflux disease without esophagitis Esophageal reflux Peptic ulcer without hemorrhage, perforation, or obstruction documented in this encounter [facility]* Diagnosis Bilateral lower extremity edema- [...] Gastroesophageal reflux disease without esophagitis Esophageal reflux Postoperative care for cataract- Primary Follow-up examination, following other surgery documented in this encounter [facility] HealthcareHistory general Narrative - Reported* Type Description Date Medical History Anxiety Medical History History of muscle spasm Medical History acid reflux Surgical History tonsillectomy Surgical History hernia Surgical History cholecystectomy Surgical History oophorectomy Surgical History Tummy Tuck Surgical History lymph node resection left axill vianney Surgical History hysterectomy 04/2019 Surgical History knee surgery 10/2021 Hospitalization History see above [employer] Other History general Narrative - Reported* Type Description Date Medical History Anxiety Medical History History of muscle spasm Medical History acid reflux Medical History high cholesterol Surgical History tonsillectomy Surgical History hernia Surgical History cholecystectomy Surgical History oophorectomy Surgical History Tummy Tuck Surgical History lymph node resection left axill vianney Surgical History hysterectomy 04/2019 Surgical History knee surgery 10/2021 Hospitalization History see above [employer] Other Hospital Discharge instructions No data available for this section [facility] No data available for this section [facility] Summary Purpose Family History No Family [...] section and content) DATE CREATED AUTHOR 08/02/2021 [facility] Specialist DATE CREATED AUTHOR AUTHOR'S ORGANIZ ATION 05/25/2022 [facility] DATE CREATED AUTHOR AUTHOR'S ORGANIZ ATION 09/25/2023 [facility] DATE CREATED AUTHOR AUTHOR'S ORGANIZ ATION 09/30/2023 [facility] DATE CREATED AUTHOR AUTHOR'S ORGANIZ ATION 12/15/2023 [facility] DATE CREATED AUTHOR AUTHOR'S ORGANIZ ATION 01/11/2024 [facility] EPIC Care Team (unrecognized sect ion and content) Team Status: Active Member Role Status Dates Yesica Nickerson Primary Care Provider Active Team Status: Inactive Member Role Status Dates Gopal Potter MD Attending Provider Active Yesica Nickerson Primary Care Provider Active Inter Com Servicer Relationship Specialty Start Date End Date Brian Leblanc MD [address] [place] [phone] PCP - General Family Medicine 04/14/23 Yesica Nickerson NP [address] [place] [phone] PCP - [facility] [employer] 09/18/23 Inter Com Servicer Relationship Specialty Start Date End Date Brian Leblanc MD [address] [place] [phone] PCP - General Family Medicine 04/14/23 Yesica Nickerson NP [address] [place] [address] PCP - [facility] [employer] 09/18/23 Team Status: Inactive Member Role Status Dates Yesica Nickerson Primary Care Provider Active Sta rt: December 04, 2023 End: December 04, 2023 Salinas White MD Attending Provider Active St art: December 04, 2023 End: December 04, 2023 Inter Com Servicer Relationship Specialty Start Date End Date Brian Leblanc MD [address] [place] [phone] PCP - General Family Medicine 04/14/23 Yesica Nickerson NP [address] [place] [phone] PCP - [facility] [employer] 09/18/23 Inter Com Servicer Relationship Specialty Start Date End Date Brian Leblanc MD [address] [place] [phone] PCP - [facility] 04/14/23 Yesica Nickerson NP [address] [place] [phone] PCP - [facility] 09/18/23 Inter Com Servicer Relationship Specialty Start Date End Date Brian Leblanc MD [address] [place] [phone] PCP - [facility] 04/14/23 Yesica Nickerson NP [address] [place] [phone] PCP - [facility] [employer] 09/18/23 REASON FOR VISIT (unrecogniz ed section and content) Reason Onset Date Comments Med Refill 01/05/2024 Reason Comments Follow-up Goals (unrecognized section and content) Goals may [...] BE BASED ON THE PRIMARY CLINICAL RECORDS. [facility] provides no warranty or guarantee of the accuracy or completeness of information in this document.
[2024-01-19 11:01] VITALS: BP 106/58; PULSE 68; O2SAT 97; BMI 33.5
== END 2024-01-19 08:02 | disposition home or self-care (01) ==
LOC: VC 08:01
PROVIDERS: PCP Radiology Diagnostic Radiology; Visit Provider Radiology Diagnostic Radiology
DX: I83.813 Varicose veins of bilateral lower extremities with pain (principal)
CPT/HCPCS: 36471

== ENCOUNTER 2024-02-17 11:54 | Outpatient (OUT) | payer BC, SELFPAY ==
--- OUTSIDE RECORDS SUMMARY | 2024-02-17 12:13 | XMS_ITS | CCD ---
Author Organization [facility] Care Team Providers Care Bombsight Specialist Name Role Phone YESICA NICKERSON Primary Care Physician AICHSTEPHZ, DATABASES COMPUTER CONSULTANT YESICA Primary Care Unavailable AICHHOLZ, DATABASES COMPUTER CONSULTANT YESICA Admitting Unavailable DR DOUGLAS SOLANO V Consulting Unavailable AICHHOLZ, DATABASES COMPUTER CONSULTANT YESICA Attending Unavailable AICHHOLZ, DATABASES COMPUTER CONSULTANT YESICA Consulting Unavailable AICHHOLZ, DATABASES COMPUTER CONSULTANT YESICA Attending Unavailable AICHHOLZ, DATABASES COMPUTER CONSULTANT YESICA Consulting Unavailable AICHHOLZ, DATABASES COMPUTER CONSULTANT YESICA Primary Care Unavailable AICHHOLZ, DATABASES COMPUTER CONSULTANT YESICA Admitting Unavailable AICHHOLZ, DATABASES COMPUTER CONSULTANT YESICA Attending Unavailable AICHHOLZ, DATABASES COMPUTER CONSULTANT YESICA Consulting Unavailable AICHHOLZ, DATABASES COMPUTER CONSULTANT YESICA Primary Care Unavailable AICHHOLZ, DATABASES COMPUTER CONSULTANT YESICA Admitting Unavailable AICHHOLZ, DATABASES COMPUTER CONSULTANT YESICA Attending Unavailable AICHHOLZ, DATABASES COMPUTER CONSULTANT YESICA Consulting Unavailable AICHHOLZ, DATABASES COMPUTER CONSULTANT YESICA Primary Care Unavailable AICHHOLZ, DATABASES COMPUTER CONSULTANT YESICA Admitting Unavailable DR JONATHAN HOLLINGSWORTH Consulting Unavailable AICHHOLZ, DATABASES COMPUTER CONSULTANT YESICA Consulting Unavailable AICHHOLZ, DATABASES COMPUTER CONSULTANT YESICA Primary Care Unavailable AICHHOLZ, DATABASES COMPUTER CONSULTANT YESICA Admitting Unavailable AICHHOLZ, DATABASES COMPUTER CONSULTANT YESICA Attending Unavailable Elise Stone Unavailable MD Gopal Potter Attending Provider Yesica Nickerson Primary Care Provider [phone] Tika Otero Unavailable Boby Cevallos Attending Unavailable Boby Cevallos Attending Unavailable Brian Leblanc MD Primary Care Provider [phone] Aicsirena ACADEMIC ASSISTANT, Yesica Unavailable Yesica Nickerson Primary Care Provider [phone] MD Salinas White Attending Provider [phone] Yesica Nickerson Primary Care Unavailable Salinas White [...] Allergy Type Date of Onset Reaction(s) Facility (20 sources) Amoxicillin; Translations: [amoxicillin] Drug Allergy 06-29-19 Unknown (qualifier value), Unknown [facility] (6 sources) Iodine; Translations: [iodine containing compounds] Drug allergy Eruption of skin (disorder) [facility] (20 sources) PARoxetine; Translations: [paroxetine] Drug Allergy 06-29-19 Unknown (qualifier value), Unknown [facility] (20 sources) Povidone-Iodine; Translations: [povidone iodine topical] Drug Allergy 06-29-19 Unknown (qualifier value) [facility] (8 sources) rofecoxib; Translations: [rofecoxib] Drug Allergy 06-29-19 Unknown (qualifier value) [facility] (20 sources) Sertraline; Translations: [sertraline] Drug Allergy 06-29-19 Unknown (qualifier value), Unknown [facility] (1 source) Adhesive agent Drug allergy (disorder) [facility] (5 sources) Iodine Drug Allergy 01-27-20 13 burning sensation, Redness of Skin, Redness of Skin, burning sensation [facility] (1 source) Latex Drug allergy (disorder) [facility] (3 sources) Cortisone; Translations: [cortisone] Drug Allergy 06-29-19 [facility]ching [facility] (19 sources) Iodine Drug Allergy 01-25-20 [facility] (19 sources) methylPREDNISolone Drug Allergy 01-25-20 Itching [facility] (19 sources) Povidone-Iodine Drug Allergy 05-27-19 24 Other [facility] (19 sources) rofecoxib Drug Allergy 04-14-19 Unknown [facility] (1 source) Amoxicillin Drug Allergy 01-21-20 [facility] (1 source) Iodine Drug Allergy 01-21-20 [facility] (1 source) PARoxetine Drug Allergy 06-29-19 [facility] (1 source) Povidone-Iodine Drug Allergy 06-29-19 [facility] (1 source) rofecoxib Drug Allergy 06-29-19 [facility] (1 source) Sertraline Drug Allergy 06-29-19 [facility] Medications Current Medications Medication Drug Class(es) Dates Sig (Normalized) Sig (Original) ALPRAZolam 0.25 mg oral tablet (20 sources) Benzodiazepine Start: 09-13-2021 alprazolam 0.25 mg Tab 30 tab(s), Refills(s) 0 Start Date: 09/13/21 Status: Ordered atorvastatin 10 mg oral tablet (20 sources) HMG-CoA Reductase Inhibitor Start: 07-29-2023 End: 01-28-2024 take 1 tablet by mouth once daily atorvastatin (Lipitor) 10 MG tablet Indications: Mixed hyperlipidemia (CMS/HCC) Take 1 tablet (10 mg) by mouth Daily 90 tablet 1 10/30/2023 01/28/2024 Active Atorvastatin Will cium 10 MG Oral for 90 Days Active cholecalciferol 0.025 mg oral capsule (19 sources) Vitamin D take 2 capsules by mouth every week Cholecalciferol (Vitamin D3) 1000 units capsule Take 2,000 Units by mouth 1 (one) time per week Active DHEA 10 MG (1 source) DHEA 10 MG as di rected Orally Active Hormone Cream Base cream (19 sources) Hormone Cream Ba se cream 0.5 mL Daily From [facility] drug compound Active hydroCHLOROthiazide 25 mg oral tablet (6 sources) Thiazide Diuretic Start: 2023 End: 2023 take 1 tablet by mouth once daily hydroCHLOROthiazide (HYDRODiuril) 25 MG tablet Indications: Bilateral lower extremity edema Take 1 tablet (25 mg) by mouth Daily 90 tablet 07/15/2023 10/21/2023 Discontinued (Side effects) take 1 tablet by nikolai th every twenty-four hours hydroCHLOROthiazide 25 MG 1 capsule in t he morning Orally Once a day Active hydroCHLOROthiaz gerson Active Levomefolate Glucosamine (MethylFolate) 400 MCG capsule (7 sources) End: 10-30-2023 take 1 capsule by mouth once daily Levomefolate Glucosamine (MethylFolate) 400 MCG capsule Take 1 capsule by mouth Daily 10/30/2023 Discontinued take 1 capsule by mouth once leisa ly Levomefolate Glucosamine (MethylFolate) 400 MCG capsule Take 1 capsule by mouth Daily Active Magnesium glycinate (7 sources) End: 10-30-2023 take 1 capsule by mouth once daily for pain Magnesium Glycinate 665 MG capsule Take 1 capsule by mouth Daily For muscle pain 10/30/2023 Discontinued take 1 capsule by [facility] once daily for pain Magnesium Glycinate 665 MG capsule Take 1 capsule by mouth Daily For muscle pain Active meloxicam 15 mg oral tablet (8 sources) Nonsteroidal Anti-inflammatory Drug Start: 07-29-2023 End: 10-30-2023 take 1 tablet by mouth once daily meloxicam (Mobic) 15 MG tablet Indications: Primary osteoarthritis of both knees Take 1 tablet (15 mg) by mouth Daily 90 tablet 1 07/29/2023 10/30/2023 Active take 1 tablet by nikolai every twenty-four hours Meloxicam 15 MG 1 tablet Orally Once a day Active Meloxicam Active metaxalone 800 mg oral table t (20 sources) Start: 11-13-2021 metaxalone 800 mg Tab Refills(s) 0 Start Date: 11/13/21 Status: Ordered metaxalone (Skel axin) 800 MG tablet Take 400 mg by mouth 4 (four) times a day as needed for muscle spasms Active omeprazole 20 mg delayed release oral capsule (20 sources) Proton Pump Inhibitor Start: 12-04-2023 End: 02-04-2024 take 1 capsule by mouth before mealtime omeprazole (PriLOSEC) [address] capsule Indications: Peptic ulcer without hemorrhage, perforation, or obstruction Take 1 capsule (20 mg) by mouth in the morning. Take before meals. 30 capsule 2 01/05/2024 02/04/2024 Active Start: 09-13-2021 take 1 capsule by mo [facility] once daily omeprazole 40 mg Cap-DR 30 EA, TAKE 1 CAPSULE BY MOUTH EVERY DAY, Refills(s) 0 Start Date: 09/13/21 Status: Ordered take 1 capsule by [facility] before mealtime omeprazole (PriLOSEC) [address] capsule Take 20 mg by mouth in the morning. Take before meals. Do not crush or chew.. Active Omeprazole Activ e spironolactone 25 mg oral tablet (18 sources) Aldosterone Antagonist Start: 10-21-2023 End: 04-18-2024 take 1 tablet by mouth once daily as needed spironolactone (Aldactone) 25 MG tablet Indications: Bilateral lower extremity edema Take 1 tablet (25 mg) by mouth Daily as needed (swelling legs) 30 tablet 2 11/17/2023 12/17/2023 Active UNABLE TO FIND (19 sources) take 1 tablet by mouth once daily UNABLE TO FIND Take 1 tablet by mouth Daily Med Name: DHEA 5mg tablet Active Problems Active Problems Problem Classification Problem Date Documented Date Episodic/Chronic Anxiety disorders (19 sources) Mixed anxiety and depressive disorder; Translations: [Anxiety disorder, unspecified] Onset: 04-29-2023 04-29-2023 Chronic Disorders of lipid metabolism (20 sources) Mixed hyperlipidemia; Translations: [Mixed hyperlipidemia] Onset: 04-14-2023 04-14-2023 Chronic Endometriosis (19 sources) Endometriosis (clinical); Translations: [Endometriosis, unspecified] Onset: 01-29-2013 01-24-2023 Chronic Esophageal disorders (10 sources) Gastroesophageal reflux disease without esophagitis; Translations: [Gastro-esophageal reflux disease without esophagitis] Onset: 12-04-2023 12-04-2023 Chronic Fluid and electrolyte disorders (16 sources) Hypokalemia; Translations: [Hypokalemia] Onset: 10-30-2023 10-30-2023 Episodic Gastroduodenal ulcer (except hemorrhage) (20 sources) Peptic ulcer without hemorrhage, without perforation AND without obstruction; Translations: [Peptic ulcer, site unspecified, unspecified as acute or chronic, without hemorrhage or perforation] Onset: 01-29-2013 01-24-2023 Chronic Headache; including migraine (19 sources) Migraine; Translations: [Migraine, unspecified, not intractable, without status migrainosus] Onset: 04-29-2023 04-29-2023 Chronic Immunizations and screening for infectious disease (14 sources) Anti-nuclear factor positive; Translations: [Other specified abnormal immunological findings in serum] Onset: 11-06-2023 11-06-2023 Episodic Joint disorders and dislocations; trauma-related (19 sources) Derangement of right knee; Translations: [Unspecified internal derangement of right knee] Onset: 01-24-2023 01-24-2023 Chronic Malaise and fatigue (17 sources) Asthenia; Translations: [Weakness] Onset: 09-23-2023 Episodic Menopausal disorders (20 sources) Menopausal and female climacteric states; Translations: [Menopause ovarian failure] Onset: 04-19-2022 Chronic Nonmalignant breast conditions (19 sources) Fibrocystic disease of breast; Translations: [Diffuse cystic mastopathy of unspecified breast] Onset: 01-29-2013 01-24-2023 Chronic Osteoarthritis (19 sources) Osteoarthritis of knee; Translations: [Osteoarthritis of knee, unspecified] Onset: 01-24-2023 01-24-2023 Chronic Other aftercare (1 source) Surgical follow-up; Translations: [Encounter for surgical aftercare following surgery on the sense organs] 01-08-2024 Episodic Other endocrine disorders (1 source) Other specified disorders of adrenal gland; Translations: [OTHER SPEC DISORDERS ADRENAL GLAND] Onset: 04-22-2022 Chronic Other eye disorders (2 sources) Dermatochalasis of right upper eyelid; Translations: [Dermatochalasis] 12-25-2023 Episodic Other eye disorders (2 sources) Ptosis of eyelid; Translations: [Unspecified ptosis of bilateral eyelids] 12-25-2023 Episodic Other female genital disorders (19 sources) Pain in female genitalia on intercourse; Translations: [Unspecified dyspareunia] Onset: 04-29-2023 04-29-2023 Chronic Other nervous system disorders (1 source) Other chronic pain; Translations: [OTHER CHRONIC PAIN] Onset: 06-19-2021 Chronic Other nervous system disorders (19 sources) Thoracic outlet syndrome; Translations: [Brachial plexus [...] Chronic Other nutritional; endocrine; and metabolic disorders (20 sources) Obesity; Translations: [Obesity, unspecified] Onset: 01-24-2023 01-24-2023 Chronic Other upper respiratory disease (2 sources) Seasonal allergic rhinitis; Translations: [Other seasonal allergic rhinitis] Chronic Other upper respiratory disease (1 source) Other seasonal allergic rhinitis Chronic Other upper respiratory infections (1 source) Acute pharyngitis, unspecified Episodic Residual codes; unclassified (19 sources) Obstructive sleep apnea syndrome; Translations: [Obstructive sleep apnea (adult) (pediatric)] Onset: 04-29-2023 04-29-2023 Chronic Residual codes; unclassified (4 sources) Localized edema; Translations: [LOCALIZED EDEMA] Onset: 05-18-2022 Episodic Substance-related disorders (19 sources) Smokes tobacco daily; Translations: [Nicotine dependence, unspecified, uncomplicated] Onset: 01-24-2023 01-24-2023 Chronic Thyroid disorders (1 source) Nontoxic goiter, unspecified; Translations: [NONTOXIC GOITER UNSPECIFIED] Onset: 04-22-2022 Chronic Past or Other Problems Problem Classification Problem Date Documented Date Episodic/Chronic Blindness and vision defects (1 source) Loss of part of visual field ; Translations: [Unspecified visual field defects] 10-16-2023 Episodic Cardiac dysrhythmias (20 sources) Palpitations; Translations: [Palpitations] Onset: 09-24-2023 09-24-2023 Episodic Conditions associated with dizziness or vertigo (20 sources) Dizziness and giddiness; Translations: [Dizziness and giddiness] Onset: 09-23-2023 Episodic Headache; including migraine (19 sources) Headache; Translations: [Headache] Onset: 06-17-2007 04-29-2023 Episodic Menstrual disorders (20 sources) Amenorrhea; Translations: [Amenorrhea, unspecified] Onset: 01-24-2023 Resolved: 01-22-2024 01-24-2023 Chronic Other connective tissue disease (4 sources) Fibromyalgia; Translations: [FIBROMYALGIA] Onset: 06-15-2021 Episodic Other connective tissue disease (19 sources) Plantar fasciitis; Translations: [Plantar fascial fibromatosis] Onset: 01-24-2023 01-24-2023 Episodic Other connective tissue disease (19 sources) Fibromyalgia; Translations: [Fibromyalgia] Onset: 04-29-2023 04-29-2023 Episodic Other non-traumatic joint disorders (20 sources) Pain in right knee; Translations: [Pain [...] breast] Onset: 01-11-2022 Episodic Other skin disorders (19 sources) Disorder of skin of lower limb; Translations: [Disorder of the skin and subcutaneous tissue, unspecified] Onset: 08-05-2023 08-05-2023 Episodic Other skin disorders (19 sources) Mass of skin of right lower [...] ORGN/SYS] Onset: 01-16-2022 Episodic Residual codes; unclassified (20 sources) Bilateral lower limb edema; Translations: [Localized edema] Onset: 04-14-2023 04-14-2023 Episodic Residual codes; unclassified (20 sources) Tobacco user; Translations: [Tobacco use] Onset: 04-29-2023 04-29-2023 Episodic Residual codes; unclassified (19 sources) Menopause present; Translations: [Asymptomatic menopausal state] Onset: 04-30-2023 04-30-2023 Episodic Residual codes; unclassified (19 sources) Patient participation status; Translations: [Other specified health status] Onset: 08-05-2023 08-05-2023 Episodic Unclassified (1 source) Exposure to 2019 novel coronavirus; Translations: [Contact with and (suspected) exposure to COVID19] Unclassified (1 source) Suspected COVID-19 virus infection Z20.822 Varicose veins of lower extremity (20 sources) Varicose veins of lower extremity; Translations: [Varicose veins of bilateral lower extremities with pain] Onset: 08-05-2023 08-05-2023 Episodic Viral infection (1 source) COVID-19 Results Test Name Value Interpretation Reference Range Facility Automated basophil %Ordered By: Salinas White on 12-04-2023 Basophils/100 WBC (Bld) 0.9 % Normal . [facility] Comment on above: Performed By: #### C 3, CH50, C4 #### [facility] , #### ADDONUAPLUS, CRP, CREAT, ESR, CBC #### [facility] [address] Automated basophil countOrde red By: Salinas White on 12-04-2023 Basophils (Bld) [#/Vol] 0.0 10*3/uL Normal 0.0-0.2 [facility] Comment on above: Performed By: #### C 3, CH50, C4 #### [facility] , #### ADDONUAPLUS, CRP, CREAT, ESR, CBC #### [facility] [address] Automated blood monocyte cou ntOrdered By: Salinas White on 12-04-2023 Monocytes (Bld) [#/Vol] 0.3 10*3/uL Normal 0.0-0.8 [facility] Comment on above: Performed By: #### C 3, CH50, C4 #### [facility] , #### ADDONUAPLUS, CRP, CREAT, ESR, CBC #### [facility] [address] [place] [address] Automated eosinophil %Ordere d By: Salinas White on 12-04-2023 Eosinophils/100 WBC (Bld) 2.7 % Normal . [facility] Comment on above: Performed By: #### C 3, CH50, C4 #### [facility] , #### ADDONUAPLUS, CRP, CREAT, ESR, CBC #### [address] Automated eosinophil countOr dered By: Salinas White on 12-04-2023 Eosinophils (Bld) [#/Vol] 0.1 10*3/uL Normal 0.0-0.45 [facility] Comment on above: Performed By: #### C 3, CH50, C4 #### [facility] , #### ADDONUAPLUS, CRP, CREAT, ESR, CBC #### [address] Automated monocyte %Ordered By: Salinas White on 12-04-2023 Monocytes/100 WBC (Bld) 6.1 % Normal . [facility] Comment on above: Performed By: #### C 3, CH50, C4 #### [facility] , #### ADDONUAPLUS, CRP, CREAT, ESR, CBC #### [address] Automated neutrophil %Ordere d By: Salinas White on 12-04-2023 Neutrophils/100 WBC (Bld) 50.0 % Normal . [facility] Comment on above: Performed By: #### C 3, CH50, C4 #### [facility] , #### ADDONUAPLUS, CRP, CREAT, ESR, CBC #### [address] Bacteria [Presence] in Urine by AutomatedOrdered By: Salinas White on 12-04-2023 Bacteria Auto Ql (U) Rare [HPF] None Seen [facility] Bilirubin Test strip Ql (U)O rdered By: Salinas Websterjose g on 12-04-2023 Bilirubin Ql (U) Negative Negative [facility] C reactive protein [Mass/vol ume] in Serum or PlasmaOrdered By: Salinas White on 12-04-2023 CRP [Mass/Vol] < 0.5 mg/dL 0.0-0.5 [facility] C-Reactive Proteinon 024 CRP [Mass/Vol] mg/L Normal 0.0-0.5 [facility] Comment on above: Result Comment: PERF ORMED BY: [place] [address] PATHOLOGIST DERMATOLOGY NURSE LYDIA JACKSON M.D. Performed By: #### C 3, CH50, C4 #### [facility] , #### ADDONUAPLUS, CRP, CREAT, ESR, CBC #### [address] Color of Urine by AutoOrdere d By: Salinas White on 12-04-2023 Color (U) Light-yellow Normal Yellow [facility] Comment on above: Order Comment: Name Collection Type:: Clean-Voided Midstream Performed By: #### C 3, CH50, C4 #### [facility] , #### ADDONUAPLUS, CRP, CREAT, ESR, CBC #### [address] Complement C3on 12-04-2023 Complement C3 125 mg/dL Normal 82-167 [facility] Comment on above: Result Comment: Perf ormed at: - [facility] [address] [id number] Salt Grinder: Bill Lagunas PhD, Phone: [phone] Performed By: #### C 3, CH50, C4 #### [facility] , #### ADDONUAPLUS, CRP, CREAT, ESR, CBC #### [facility] [address] [place] [address] Complement C4on 12-04-2023 Complement C4 29 mg/dL Normal 12-38 [facility] Comment on above: Result Comment: PERF ORMED BY: [place] [address] PATHOLOGIST DERMATOLOGY NURSE LYDIA JACKSON M.D. Performed By: #### C 3, CH50, C4 #### [facility] , #### ADDONUAPLUS, CRP, CREAT, ESR, CBC #### [address] Complement Total (CH50)on Complement Total (CH50) 52 Normal >41 [facility] Comment on above: Result [...] of range values. Performed at: - [facility] [address] [id number] Salt Grinder: Bill Lagunas PhD, Phone: [phone] PERFORMED BY: [place] [address] PATHOLOGIST DERMATOLOGY NURSE LYDIA JACKSON M.D. Performed By: #### C 3, CH50, C4 #### [facility] , #### ADDONUAPLUS, CRP, CREAT, ESR, CBC #### [address] Complete Blood Count Auto Di ffon 12-04-2023 Mean Corpuscular HGB Conc 34.1 g/dL Normal 32.0-35.0 [facility] Comment on above: Performed By: #### C 3, CH50, C4 #### [facility] , #### ADDONUAPLUS, CRP, CREAT, ESR, CBC #### [facility] [address] NRBC% 0.1 /100{WBC} Normal 0-0.5 [facility] Comment on above: Performed By: #### C 3, CH50, C4 #### [facility] , #### ADDONUAPLUS, CRP, CREAT, ESR, CBC #### [facility] [address] [place] [address] [place] Creatinineon 12-04-2023 GFR/1.73 sq M.predicted MDRD (S/P/Bld) [Vol rate/Area] mL/min/{1.73_m2} Normal [facility] Comment on above: Performed By: #### C 3, CH50, C4 #### [facility] , #### ADDONUAPLUS, CRP, CREAT, ESR, CBC #### [address] Creatinine [Mass/volume] in Serum or PlasmaOrdered By: Salinas White on 12-04-2023 Creatinine [Mass/Vol] 0.71 mg/dL Normal 0.60-1.20 [facility] Comment on above: Performed By: #### C 3, CH50, C4 #### [facility] , #### ADDONUAPLUS, CRP, CREAT, ESR, CBC #### [address] Dipstick and Microscopicon 1 Bacteria,Urine Rare Normal None Seen [facility] Comment on above: Order Comment: Name Collection Type:: Clean-Voided Midstream Performed By: #### C 3, CH50, C4 #### [facility] , #### ADDONUAPLUS, CRP, CREAT, ESR, CBC #### [facility] [address] [place] [address] [place] Bilirubin,Urine Negative Normal Negative [facility] Comment on above: Order Comment: Name Collection Type:: Clean-Voided Midstream Performed By: #### C 3, CH50, C4 #### [facility] , #### ADDONUAPLUS, CRP, CREAT, ESR, CBC #### [address] Glucose Ql (U) Normal Normal Normal [facility] Comment on above: Order Comment: Name Collection Type:: Clean-Voided Midstream Performed By: #### C 3, CH50, C4 #### [facility] , #### ADDONUAPLUS, CRP, CREAT, ESR, CBC #### [address] Hyaline Casts,Urine None Normal 0-8 [facility] Comment on above: Order Comment: Name Collection Type:: Clean-Voided Midstream Performed By: #### C 3, CH50, C4 #### [facility] , #### ADDONUAPLUS, CRP, CREAT, ESR, CBC #### [address] Mucus,Urine Rare Normal [facility] Comment on above: Order Comment: Name Collection Type:: Clean-Voided Midstream Result Comment: PERF ORMED BY: [place] [address] PATHOLOGIST DERMATOLOGY NURSE LYDIA JACKSON M.D. Performed By: #### C 3, CH50, C4 #### [facility] , #### ADDONUAPLUS, CRP, CREAT, ESR, CBC #### [address] Nitrite,Urine Negative Normal Negative [facility] Comment on above: Order Comment: Name Collection Type:: Clean-Voided Midstream Performed By: #### C 3, CH50, C4 #### [facility] , #### ADDONUAPLUS, CRP, CREAT, ESR, CBC #### [address] Occult Blood,Urine Negative Normal Negative [facility] Comment on above: Order Comment: Name Collection Type:: Clean-Voided Midstream Performed By: #### C 3, CH50, C4 #### [facility] , #### ADDONUAPLUS, CRP, CREAT, ESR, CBC #### [address] Protein,Urine Negative Normal Negative [facility] Comment on above: Order Comment: Name Collection Type:: Clean-Voided Midstream Performed By: #### C 3, CH50, C4 #### [facility] , #### ADDONUAPLUS, CRP, CREAT, ESR, CBC #### [address] RBC,Urine None Seen Normal 0-4 [facility] Comment on above: Order Comment: Name Collection Type:: Clean-Voided Midstream Performed By: #### C 3, CH50, C4 #### [facility] , #### ADDONUAPLUS, CRP, CREAT, ESR, CBC #### [address] Specificy [place],Urine 1.018 Normal 1.001-1.030 [facility] Comment on above: Order Comment: Name Collection Type:: Clean-Voided Midstream Performed By: #### C 3, CH50, C4 #### [facility] , #### ADDONUAPLUS, CRP, CREAT, ESR, CBC #### [address] Squamous Epithelial Cell,Urine 3-4 High 0-2 [facility] Comment on above: Order Comment: Name Collection Type:: Clean-Voided Midstream Performed By: #### C 3, CH50, C4 #### [facility] , #### ADDONUAPLUS, CRP, CREAT, ESR, CBC #### [address] Urobilinogen,Urine Normal Normal Normal [facility] Comment on above: Order Comment: Name Collection Type:: Clean-Voided Midstream Performed By: #### C 3, CH50, C4 #### [facility] , #### ADDONUAPLUS, CRP, CREAT, ESR, CBC #### [address] WBC,Urine 1-2 Normal 0-4 [facility] Comment on above: Order Comment: Name Collection Type:: Clean-Voided Midstream Performed By: #### C 3, CH50, C4 #### [facility] , #### ADDONUAPLUS, CRP, CREAT, ESR, CBC #### [facility] [address] [place] [address] Epithelial cells.squamous [# /area] in Urine sediment by Automated countOrdered By: Salinas White on 12-04-2023 Epithelial cells.squamous Auto (Urine sed) [#/Area] 3-4 [HPF] High 0-2 [facility] Erythrocyte Sedimentation Ra florentino 12-04-2023 ESR (Bld) [Velocity] 6 mm/h Normal 0-19 [facility] Comment on above: Result Comment: PERF ORMED BY: [place] [address] PATHOLOGIST DERMATOLOGY NURSE LYDIA JACKSON M.D. Performed By: #### C 3, CH50, C4 #### [facility] , #### ADDONUAPLUS, CRP, CREAT, ESR, CBC #### [address] Erythrocyte distribution wid th [Ratio] by Automated countOrdered By: Salinas White on 12-04-2023 Erythrocyte distribution width (RBC) [Ratio] 13.1 % Normal 11.9-15.3 [facility] Comment on above: Performed By: #### C 3, CH50, C4 #### [facility] , #### ADDONUAPLUS, CRP, CREAT, ESR, CBC #### [facility] [address] [place] [address] Erythrocyte sedimentation ra te by Photometric methodOrdered By: Salinas White on 12-04-2023 ESR Photometric method (Bld) [Velocity] 6 mm/hr 0-19 [facility] Erythrocytes [#/area] in Uri ne sediment by Automated countOrdered By: Salinas White on 12-04-2023 RBC Auto (Urine sed) [#/Area] None seen [HPF] 0-4 [facility] Erythrocytes [#/volume] in B lood by Automated countOrdered By: Salinas White on 12-04-2023 RBC (Bld) [#/Vol] 4.65 10*6/uL Normal 3.60-5.00 [facility] Comment on above: Performed By: #### C 3, CH50, C4 #### [facility] , #### ADDONUAPLUS, CRP, CREAT, ESR, CBC #### [facility] [address] [place] [address] Glucose [Mass/volume] in Uri ne by Test stripOrdered By: Salinas White on 12-04-2023 Glucose Test strip (U) [Mass/Vol] Normal mg/dL Normal [facility] Hematocrit [Volume Fraction] of Blood by Automated countOrdered By: Salinas White on 12-04-2023 Hematocrit (Bld) [Volume fraction] 41.2 % Normal 34.0-46.4 [facility] Comment on above: Performed By: #### C 3, CH50, C4 #### [facility] , #### ADDONUAPLUS, CRP, CREAT, ESR, CBC #### [facility] [address] [place] [address] Hemoglobin Test strip Ql (U) Ordered By: Salinas White on 12-04-2023 Hemoglobin Ql (U) Negative Negative [facility] Hemoglobin [Mass/volume] in BloodOrdered By: Salinas White on 12-04-2023 Hemoglobin (Bld) [Mass/Vol] 14.1 g/dL Normal 11.8-15.4 [facility] Comment on above: Performed By: #### C 3, CH50, C4 #### [facility] , #### ADDONUAPLUS, CRP, CREAT, ESR, CBC #### [facility] [address] [place] [address] Hyaline casts [#/area] in Ur ine sediment by Automated countOrdered By: Salinas White on 12-04-2023 Hyaline casts Auto (Urine sed) [#/Area] None [LPF] 0-8 [facility] Ketones [Presence] in Urine by Test stripOrdered By: Salinas White on 12-04-2023 Ketones Ql (U) Negative Normal Negative [facility] Comment on above: Order Comment: Name Collection Type:: Clean-Voided Midstream Performed By: #### C 3, CH50, C4 #### [facility] , #### ADDONUAPLUS, CRP, CREAT, ESR, CBC #### [facility] [address] [place] [address] Leukocyte esterase [Presence ] in Urine by Test stripOrdered By: Salinas White on 12-04-2023 Leukocyte esterase Test strip Ql (U) Negative Normal Negative [facility] Comment on above: Order Comment: Name Collection Type:: Clean-Voided Midstream Performed By: #### C 3, CH50, C4 #### [facility] , #### ADDONUAPLUS, CRP, CREAT, ESR, CBC #### [facility] [address] [place] [address] Leukocytes [#/area] in Urine sediment by Automated countOrdered By: Salinas White on 12-04-2023 WBC Auto (Urine sed) [#/Area] 1-2 [HPF] 0-4 [facility] Leukocytes [#/volume] correc carol for nucleated erythrocytes in Blood by Automated counOrdered By: Salinas White on 12-04-2023 WBC corrected for nucl RBC Auto (Bld) [#/Vol] 4.5 10*3/uL 3.8-11.6 [facility] Leukocytes [#/volume] in Blo od by Automated countOrdered By: Salinas White on 12-04-2023 WBC (Bld) [#/Vol] 4.5 10*3/uL Normal 3.8-11.6 [facility] Comment on above: Performed By: #### C 3, CH50, C4 #### [facility] , #### ADDONUAPLUS, CRP, CREAT, ESR, CBC #### [address] Lymphocytes [#/volume] in Bl ood by Automated countOrdered By: Salinas White on 12-04-2023 Lymphocytes (Bld) [#/Vol] 1.8 10*3/uL Normal 1.00-4.8 [facility] Comment on above: Performed By: #### C 3, CH50, C4 #### [facility] , #### ADDONUAPLUS, CRP, CREAT, ESR, CBC #### [address] Lymphocytes/100 leukocytes i n Blood by Automated countOrdered By: Salinas White on 12-04-2023 Lymphocytes/100 WBC (Bld) 40.3 % Normal . [facility] Comment on above: Performed By: #### C 3, CH50, C4 #### [facility] , #### ADDONUAPLUS, CRP, CREAT, ESR, CBC #### [address] MCH [Entitic mass] by Automa carol countOrdered By: Salinas White on 12-04-2023 MCH (RBC) [Entitic mass] 30.3 pg Normal 24.7-34.3 [facility] Comment on above: Performed By: #### C 3, CH50, C4 #### [facility] , #### ADDONUAPLUS, CRP, CREAT, ESR, CBC #### [address] MCHC Auto (RBC) [Mass/Vol]Or dered By: Salinas White on 12-04-2023 MCHC (RBC) [Mass/Vol] 34.1 g/dL 32.0-35.0 [facility] MCV [Entitic volume] by Auto mated countOrdered By: Salinas White on 12-04-2023 MCV (RBC) [Entitic vol] 88.7 fL Normal 80-100 [facility] Comment on above: Performed By: #### C 3, CH50, C4 #### [facility] , #### ADDONUAPLUS, CRP, CREAT, ESR, CBC #### [facility] [address] Mucus [Presence] in Urine by AutomatedOrdered By: Salinas White on 12-04-2023 Mucus Auto Ql (U) Rare [LPF] [facility] Neutrophils [#/volume] in Bl ood by Automated countOrdered By: Salinas White on 12-04-2023 Neutrophils (Bld) [#/Vol] 2.3 10*3/uL Normal 1.8-7.7 [facility] Comment on above: Performed By: #### C 3, CH50, C4 #### [facility] , #### ADDONUAPLUS, CRP, CREAT, ESR, CBC #### [facility] [address] [place] [address] Nitrite Test strip Ql (U)Ord ered By: Salinas White on 12-04-2023 Nitrite Ql (U) Negative Negative [facility] No Panel InformationOrdered By: Salinas White on 12-04-2023 Estimated GFR (CKD-EPI) > 60.0 mL/Min [facility] Creatinine Clearance (Chem N/A [facility] Nucleated erythrocytes [Pres ence] in Blood by Automated countOrdered By: Salinas White on 12-04-2023 Nucleated RBC Auto Ql (Bld) 0.1 /100{WBC} 0-0.5 [facility] Platelet mean volume [Entiti c volume] in Blood by Automated countOrdered By: Salinas White on 12-04-2023 Platelet mean volume (Bld) [Entitic vol] 9.7 fL Normal 6.3-10.7 [facility] Comment on above: Performed By: #### C 3, CH50, C4 #### [facility] , #### ADDONUAPLUS, CRP, CREAT, ESR, CBC #### [facility] [address] Platelets [#/volume] in Bloo d by Automated countOrdered By: Salinas White on 12-04-2023 Platelets (Bld) [#/Vol] 205 10*3/uL Normal 150-450 [facility] Comment on above: Performed By: #### C 3, CH50, C4 #### [facility] , #### ADDONUAPLUS, CRP, CREAT, ESR, CBC #### [facility] [address] Protein Test strip (U) [Mass /Vol]Ordered By: Salinas White on 12-04-2023 Protein (U) [Mass/Vol] Negative Negative [facility] Specific gravity Test strip (U) [Rel density]Ordered By: Salinas White on 12-04-2023 Specific gravity (U) [Rel density] 1.018 1.001-1.030 [facility] Urine appearanceOrdered By: Salinas White on 12-04-2023 Appearance (U) Clear Normal Clear [facility] Comment on above: Order Comment: Name Collection Type:: Clean-Voided Midstream Performed By: #### C 3, CH50, C4 #### [facility] , #### ADDONUAPLUS, CRP, CREAT, ESR, CBC #### [facility] [address] [place] [address] [place] Urobilinogen Test strip (U) [Mass/Vol]Ordered By: Salinas White on 12-04-2023 Urobilinogen (U) [Mass/Vol] Normal mg/dL Normal [facility] pH of Urine by Test stripOrd ered By: Salinas White on 12-04-2023 pH (U) 6.0 [pH] Normal 5.0-9.0 [facility] Comment on above: Order Comment: Name Collection Type:: Clean-Voided Midstream Performed By: #### C 3, CH50, C4 #### [facility] , #### ADDONUAPLUS, CRP, CREAT, ESR, CBC #### [facility] [address] ALL SED RATEon 10-31-2023 TBH SED RATE 12 NINF [facility] are [facility] Plectix Biosystemscar e Ptosis Visual Field, Limited - OU - Both Eyeson 10-16-2023 [facility] CodeGuard e Radiology Study observation (narrative) [facility] ALL CBC WITH AUTO DIFFon BASOPHILS ABSOLUTE AUTO 0.0 [facility] Basophils/100 WBC (Bld) 0.3 % 0.2 - 2.0 % [facility] Eosinophils/100 WBC (Bld) 0.9 % 0.9 - 7.0 % [facility] Erythrocyte distribution width (RBC) [Ratio] 12.2 % 11.0 - 15.0 % [facility] Hematocrit (Bld) [Volume fraction] 42.0 % 36.0 - 48.0 % [facility] Hemoglobin (Bld) [Mass/Vol] 14.2 g/dL 12.0 - 16.0 g/dL [facility] IMMATURE GRANULOCYTES ABS AUTO 0.01 [facility] Immature granulocytes/100 WBC (Bld) 0.2 % 0.0 - 0.5 % [facility] LYMPHOCYTES ABSOLUTE AUTO 1.9 [facility] Lymphocytes/100 WBC (Bld) 28.9 % 20.5 - 60.0 % [facility] MCH (RBC) [Entitic mass] 29.9 pg 26.7 - 34.0 pg [facility] MCHC (RBC) [Mass/Vol] 33.8 g/dL 29.9 - 35.2 g/dL [facility] MCV (RBC) [Entitic vol] 88.4 fL 81.0 - 99.0 fL [facility] MONOCYTES ABSOLUTE AUTO 0.6 [facility] Monocytes/100 WBC (Bld) 8.5 % 1.7 - 12.0 % [facility] NEUTROPHILS ABSOLUTE AUTO 4.0 [facility] Neutrophils/100 WBC (Bld) 61.2 % 43.0 - 75.0 % [facility] Platelet mean volume (Bld) [Entitic vol] 10.5 fL 9.5 - 13.5 fL [facility] TBH EO # 0.1 [facility] PLT 213 [facility] RBC 4.75 [facility] WBC 6.5 [facility] ED Note-Physicianon 09-29-19 ED Note-Physician ED Note-Physician [...] Brain w/o Contrast Dysphagia Screen eGFR Extra Adn Tube Extra SST Tube Oxygen Protocol PT [...] In 3 days 09/26/2023 EDT [address] [place] [address] [phone] Business (1) Additional Instructions: Patient Education Dizziness [...] made to ensure accuracy, however, inadvertently computerized optician apprentice mistakes may be present. Appropriate healthcare PPE [...] compounds (Rash) (more content not included)... Normal [facility] Comment on above: Result Comment: Elec tronically Signed By: Fadi Mccoy PA-C\.br\Date and Time Signed: 09/23/23 12:54 EDT\.br\Electronically Co-Signed By: Boby Cevallos DO\.br\Date and Time Co-Signed: 09/29/23 09:31 EDT BB Draw & Holdon 09-23-2023 BB D&H Sample drawn for Blood Ba Normal [facility] Comment on above: Performed By: #### 1 [id number] #### [facility] [address] [place] [address] CBC w/ Auto Diffon 4 Basophils/100 WBC (Bld) 0.6 % Normal 0.0-2.0 [facility] Comment on above: Performed By: #### 2 [id number] #### [facility] [address] [place] [address] Basophils/Leukocytes Auto (Bld) [Pure # fraction] 0.0 E9/L Normal 0.0-0.2 [facility] Comment on above: Performed By: #### 2 [id number] #### [facility] [address] [place] [address] Eosinophils (Bld) [#/Vol] 0.0 E9/L Normal 0.0-0.5 [facility] Comment on above: Performed By: #### 2 [id number] #### [facility] [address] [place] [address] Eosinophils/100 WBC (Bld) 0.6 % Normal 0.0-8.0 [facility] Comment on above: Performed By: #### 2 [id number] #### [facility] [address] [place] [address] Erythrocyte distribution width (RBC) [Ratio] 12.8 % Normal 10.9-14.2 [facility] Comment on above: Performed By: #### 2 [id number] #### [facility] [address] [place] [address] Hematocrit (Bld) [Volume fraction] 42.7 % Normal 34.0-46.0 [facility] Comment on above: Performed By: #### 2 [id number] #### [facility] [address] [place] [address] Hemoglobin (Bld) [Mass/Vol] 14.7 g/dL Normal 12.0-16.0 [facility] Comment on above: Performed By: #### 2 [id number] #### [facility] [address] [place] [address] Lymphocytes (Bld) [#/Vol] 1.8 E9/L Normal 1.0-4.0 [facility] Comment on above: Performed By: #### 2 [id number] #### [facility] [address] [place] [address] Lymphocytes/100 WBC (Bld) 30.1 % Normal 14.0-50.0 [facility] Comment on above: Performed By: #### 2 [id number] #### [facility] [address] [place] [address] MCH (RBC) [Entitic mass] 29.9 pg Normal 27.0-34.0 [facility] Comment on above: Performed By: #### 2 [id number] #### [facility] [address] [place] [address] MCHC (RBC) [Mass/Vol] 34.4 g/dL Normal 31.4-36.0 [facility] Comment on above: Performed By: #### 2 [id number] #### [facility] [address] [place] [address] MCV (RBC) [Entitic vol] 86.8 fL Normal 80.0-100.0 [facility] Comment on above: Performed By: #### 2 [id number] #### [facility] [address] [place] [address] Monocytes (Bld) [#/Vol] 0.4 E9/L Normal 0.2-1.0 [facility] Comment on above: Performed By: #### 2 [id number] #### [facility] [address] [place] [address] Neutrophils (Bld) [#/Vol] 3.7 E9/L Normal 2.0-7.5 [facility] Comment on above: Performed By: #### 2 [id number] #### [facility] [address] [place] [address] Neutrophils/100 WBC (Bld) 61.2 % Normal 36.0-75.0 [facility] Comment on above: Performed By: #### 2 [id number] #### [facility] [address] [place] [address] Platelet mean volume (Bld) [Entitic vol] 9.4 fL Normal 6.4-10.8 [facility] Comment on above: Performed By: #### 2 [id number] #### [facility] [address] [place] [address] Platelets (Bld) [#/Vol] 184.0 E9/L Normal 150.0-500.0 [facility] Comment on above: Performed By: #### 2 [id number] #### [facility] [address] [place] [address] RBC (Bld) [#/Vol] 4.9 E12/L Normal 4.3-5.9 [facility] Comment on above: Performed By: #### 2 [id number] #### [facility] [address] [place] [address] WBC corrected for nucl RBC Auto (Bld) [#/Vol] 6.0 E9/L Normal 4.0-11.0 [facility] Comment on above: Performed By: #### 2 [id number] #### [facility] [address] [place] [address] CHEMISTRYOrdered By: SYSTEM SYSTEM on 09-23-2023 Albumin [...] 89 mg/dL Normal 55 - 99 mg/dL [facility] POC Subsection Comment on above: Result Comment: Trixie dominique Meter POC Device SN [id number] Invalid Interpretation Code [facility] POC Subsection POC User ID [id number] 1 Invalid Interpretation Code [facility] POC Subsection POC Username SANG HEBERT Invalid Interpretation Code [facility] POC Subsection CMPon 09-23-2023 Albumin [Mass/Vol] 4.7 g/dL Normal 3.3-5.0 [facility] Comment on above: Performed By: #### 2 [id number] #### [facility] [address] [place] [address] Albumin/Globulin (S) [Mass conc ratio] 2.0 Normal 1.1-2.2 [facility] Comment on above: Performed By: #### 2 [id number] #### [facility] [address] [place] [address] ALP [Catalytic activity/Vol] 47 Int._Unit/L Normal 21-98 [facility] Comment on above: Performed By: #### 2 [id number] #### [facility] [address] [place] [address] ALT No additional P-5'-P [Catalytic activity/Vol] 22 Int._Unit/L Normal 6-46 [facility] Comment on above: Performed By: #### 2 [id number] #### [facility] [address] [place] [address] Anion gap [Moles/Vol] 10 mmol/L Normal 6-16 [facility] Comment on above: Performed By: #### 2 190311 #### [facility] [address] [place] [address] AST [Catalytic activity/Vol] 19 Int._Unit/L Normal 5-43 [facility] Comment on above: Performed By: #### 2 [id number] #### [facility] [address] [place] [address] Bilirubin [Mass/Vol] 0.4 mg/dL Normal 0.0-1.1 [facility] Comment on above: Performed By: #### 2 [id number] #### [facility] [address] [place] [address] Calcium [Mass/Vol] 9.9 mg/dL Normal 8.9-11.1 [facility] Comment on above: Performed By: #### 2 [id number] #### [facility] [address] [place] [address] Chloride [Moles/Vol] 104 mmol/L Normal 101-111 [facility] Comment on above: Performed By: #### 2 115480 #### [facility] [address] [place] [address] CO2 [Moles/Vol] 31 mmol/L Normal 21-31 [facility] Comment on above: Performed By: #### 2 044107 #### [facility] [address] [place] [address] Creatinine [Mass/Vol] 0.9 mg/dL Normal 0.5-1.3 [facility] Comment on above: Performed By: #### 2 603121 #### [facility] [address] [place] [address] Globulin (S) [Mass/Vol] 2.4 g/dL Normal 1.4-4.0 [facility] Comment on above: Performed By: #### 2 [id number] #### [facility] [address] [place] [address] Glucose [Mass/Vol] 101 mg/dL Normal 55-199 [facility] Comment on above: Performed By: #### 2 073730 #### [facility] [address] [place] [address] Potassium [Moles/Vol] 3.5 mmol/L Normal 3.5-5.3 [facility] Comment on above: Performed By: #### 2 [id number] #### [facility] [address] [place] [address] Protein [Mass/Vol] 7.1 g/dL Normal 6.0-7.8 [facility] Comment on above: Performed By: #### 2 112469 #### [facility] [address] [place] [address] Sodium [Moles/Vol] 141 mmol/L Normal 135-145 [facility] Comment on above: Performed By: #### 2 697357 #### [facility] [address] [place] [address] Urea nitrogen [Mass/Vol] 24 mg/dL High 5-21 [facility] Comment on above: Performed By: #### 2 [id number] #### [facility] [address] [place] [address] Urea nitrogen/Creatinine [Mass ratio] 27 No Units High 10-20 [facility] Comment on above: Performed By: #### 2 [id number] #### [facility] [address] [place] [address] COAGULATIONOrdered By: Abigail Robles on 09-23-2023 aPTT Coag (PPP) [Time] 35.1 s Normal 25.1 - 36.5 second(s) [facility] Comment on above: Interpretive Data: [...] the same coagulation reagent and instrumentation as [facility]. Currently there are no coagulation studies available worldwide for children to 14 days, and no normal ranges. Heparin therapeutic range (represented by Anti-Factor Xa activity of 0.2 - 0.4 U/mL) corresponds to PTT of 56.6 - 109.0 sec. INR Coag (PPP) [Relative time] 1.01 {INR} Invalid Interpretation Code [facility] Comment on above: Interpretive Data: I NR results are specifically intended to assess patients stabilized on long-term Anticoagulation therapy suggested INR s Less Intensive Anticoagulation 2.0 3.0 Conventional Range 3.0 4.5 PT Coag (PPP) [Time] 11.3 s Normal 9.4 - 1 2.5 second(s) [facility] Comment on above: Interpretive Data: 1 5 days - 4 weeks 1 - 5 months 6 -11 months 1 5 years 6 10 years 11 -17 years Mean: 11.2 (9.5 12.6) Mean: 11.0 (9.7 12.8) Mean: 11.0 (9.8 13.0) Mean: 11.3 (9.9 13.4) Mean: 11.7 (10.0 14.6) Mean: 11.8 (10.0 - 14.1) Pediatric Reference ranges were obtained from a study by karyn Mejía. prepared from 1437 samples obtained at 7 different centers using the same coagulation reagent and instrumentation as [facility]. Currently there are no coagulation studies available [...] M.D., William L neg for bleed. Normal [facility] Capillary Glucose POCon 08 Glucose [Mass/Vol] 89 mg/dL Normal 55-99 [facility] Comment on above: Result Comment: Trixie dominique Meter Performed By: #### 2 [id number] #### [facility] [address] [place] [id number] ED Clinical Summaryon 2023 ED Clinical Summary ED Clinical Summary [address] [address] ED Clinical Summary Person Information Name: AUDREY ISAACS [facility] Age: 48 Years : 1975 Sex: Female Language: Croatian PCP: YESICA NICKERSON CNP Marital Status: Visit [...] 09/23/2023 13:01:25 09/23/2023 13:01:25 09/23/2023 13:01:25 ADDRESS: [address] [place] [id number] PHYS DOC NOTES: MEDICAL INFORMATION: Prescriptions Given: Medications to Continue with No Changes Other Medications alprazolam (alprazolam 0.25 mg Tab) 30 tab(s). metaxalone (metaxalone 800 mg Tab) omeprazole (omeprazole 40 mg Cap-DR) 30 EA, TAKE 1 CAPSULE BY MOUTH EVERY DAY. PATIENT EDUCATION INFORMATION: Instructions: Dizziness Follow up: With: Address: When: YESICA NICKERSON [address] [facility] [place], [place] [phone] Business (1) In 3 days 09/26/2023 DIAGNOSIS: Dizziness; Weakness Normal [facility] ED Patient Summaryon 024 ED Patient Summary ED Patient Summary [address] [address] Patient Discharge Instructions Person Information Name: AUDREY ISAACS Age: 48 Years Arrival Date: 09/23/2023 10:54:19 Discharge Diagnosis: Dizziness; Weakness Primary Care Physician: YESICA NICKERSON CNP Provider Information Primary Provider: Boby Cevallos DO Advanced Environmental Assistant:Fadi Mccoy PA-C The exam and treatment you received in the Emergency Department were for an urgent problem and are not intended as complete care. It is important that you follow up with a doctor, nurse practitioner, or physician?s assistant office manager for ongoing care. If your symptoms become [...] With: Address: When: YESICA NICKERSON [address] [place], [place] [phone] Business (1) In 3 days 09/26/2023 In the event that this physician does not participate in your insurance network, please consult with your insurance company to find a nearby participating provider. Patient Education Materials: Dizziness A MESSAGE TO ALL PATIENTS REGARDING OPIOIDS PRESCRIPTION OPIOIDS: WHAT YOU NEED TO KNOW Prescription opioids can be used to help relieve hyuifenb-uu-fcxyyb pain and are often prescribed following a [...] be struggling with addiction, tell your health personal care aid and ask for guidance or call [facility] National Helpline at 6-845-903-GRM (more content not included)... Normal [facility] HEMATOLOGYOrdered By: Siobhan Robles on 09-23-2023 [...] Coag (PPP) [Time] 35.1 second(s) Normal 25.1-36.5 [facility] Comment on above: Result Comment: Para [...] the same coagulation reagent and instrumentation as [facility]. Currently there are no coagulation studies available worldwide for children to 14 days, and no normal ranges. Heparin therapeutic range (represented by Anti-Factor Xa activity of 0.2 - 0.4 U/mL) corresponds to PTT of 56.6 - 109.0 sec. Performed By: #### 1 [id number] #### [facility] [address] [place] [address] INR Coag (PPP) [Relative time] 1.01 {INR} Invalid Interpretation Code [facility] Comment on above: Result Comment: INR results are specifically intended to assess patients stabilized on long-term Anticoagulation therapy suggested INR?s ?Less Intensive Anticoagulation? 2.0 ? 3.0 Conventional Range 3.0 ? 4.5 Performed By: #### 1 [id number] #### [facility] [address] [place] [address] PT Coag (PPP) [Time] 11.3 second(s) Normal 9.4-12.5 [facility] [facility] Comment on above: Result Comment: 15 [...] the same coagulation reagent and instrumentation as [facility] Currently there are no coagulation studies available worldwide for children to 14 days, and no normal ranges. Performed By: #### 1 [id number] #### [facility] [address] [place] [address] Troponin 0 Hr.on 09-23-2023 Troponin HS <2.30 Low 10.10-27.10 [facility] Comment on above: Result Comment: The 95% CI (Confidence Interval) PPV (Positive Predictive Value) for myocardial infarction in females is 38 pg/mL, in males 51 pg/mL. The results should be used in conjunction with clinical conditions of myocardial infarction. (Access High Sensitivity Troponin I Instructions For Use, [employer], September 2017) Performed By: #### 1 [id number] #### [facility] [address] [place] [address] UA with Cult Rflxon 09-23-19 24 Bilirubin Ql (U) Negative Normal Negative [facility] Comment on above: Performed By: #### 4 [id number] #### [facility] [address] [place] [address] Clarity (U) Clear Normal Clear [facility] Comment on above: Performed By: #### 4 [id number] #### [facility] [address] [place] [address] Color (U) Light-Yellow Normal Yellow [facility] Comment on above: Result Comment: Micr oscopic readings are only performed on those samples that meet specific criteria set forth by [facility]. Performed By: #### 4 [id number] #### [facility] [address] [place] [address] Glucose Ql (U) Negative Normal Negative [facility] Comment on above: Performed By: #### 4 [id number] #### [facility] [address] [place] [address] Hemoglobin Auto test strip (U) [Mass/Vol] Negative Normal Negative [facility] Comment on above: Performed By: #### 4 [id number] #### [facility] [address] [place] [address] Ketones Auto test strip Ql (U) Negative Normal Negative [facility] Comment on above: Performed By: #### 4 [id number] #### [facility] [address] [place] [address] Leukocyte esterase Auto test strip Ql (U) Negative Normal Negative [facility] Comment on above: Performed By: #### 4 [id number] #### [facility] [address] [place] [address] Nitrite Auto test strip Ql (U) Negative Normal Negative [facility] Comment on above: Performed By: #### 4 [id number] #### [facility] [address] [place] [address] pH (U) 5.5 [pH] Invalid Interpretation Code 5.0-9.0 [facility] Comment on above: Performed By: #### 4 [id number] #### [facility] [address] [place] [address] Protein Ql (U) Negative Normal Negative [facility] Comment on above: Performed By: #### 4 [id number] #### [facility] [address] [place] [address] Specific gravity (U) [Rel density] 1.023 Invalid Interpretation Code 1.005-1.030 [facility] Comment on above: Performed By: #### 4 [id number] #### [facility] [address] [place] [address] Urobilinogen (U) [Mass/Vol] Negative Normal Negative [facility] Comment on above: Performed By: #### 4 [id number] #### [facility] [address] [place] [address] Type of Urine collection method Clean Catch Normal [facility] Comment on above: Performed By: #### 4 [id number] #### [facility] [address] [place] [address] URINALYSISOrdered By: [employer] on 09-23-2023 Bilirubin Ql (U) Negative Normal Negativemg/ d L FT UA Auto SS Clarity (U) Clear (09/23/23 12:16 PM) Normal Clear [facility] UA Auto SS Color (U) Light-Yellow 1 (09/23/23 12:16 PM) Normal Yellow [facility] UA Auto SS Comment on above: Interpretive Data: M icroscopic readings are only performed on those samples that meet specific criteria set forth by [facility]. Glucose Ql (U) Negative Normal [...] Desc Clean Catch (09/23/23 12:16 PM) Normal [facility] UA Auto SS XR Chest Single Viewon [...] mGy = na DAP = na Normal [facility] eGFRon 09-23-2023 eGFR 79 mL/min/1.73 m2 Normal >=59 [facility] Comment on above: Order Comment: Order added by [employer] Expert. Performed By: #### 1 [id number] #### [facility] [address] [place] [address] COVID Quick Testingon 2022 Result Positive [employer] Other No Panel InformationOrdered By: Gopal Potter on 06-28-2022 Cortisol Response to Stimulation See comment [facility] Comment on above: [employer] 11.4 Col: 06/28/22 1000 [place] 30Min 20.6 Col: 06/28/22 1050 [place] 60Min 23.2 Col: 06/28/22 1120 Quick Strepon 06-11-2022 S. pyogenes Org specific cx Ql (Throat) Negative [employer] Other Quick Strep [employer] Other PROF CHEM 8 (BAS METB)on Anion gap [Moles/Vol] 10.7 mmol/L Normal [facility] Comment on above: Performed By: #### B #### [facility] [address] [address] [address] Brandon Hodges Calcium [Mass/Vol] 9.3 mg/dL Normal 8.5-10.1 [facility] Comment on above: Performed By: #### B MP #### [facility] [address] [address] [address] Brandon Hodges Chloride [Moles/Vol] 103 mmol/L Normal 98-107 [facility] Comment on above: Performed By: #### B MP #### [facility] [address] [address] [address] Brandon Hodges CO2 [Moles/Vol] 31.5 mmol/L Normal 21.0-32.0 [facility] Comment on above: Performed By: #### B MP #### [facility] [address] [place] [address] Dr. Brandon Hodges Creatinine [Mass/Vol] 0.76 mg/dL Normal 0.55-1.02 [facility] Comment on above: Performed By: #### B MP #### [facility] [address] [address] [address] Brandon Hodges EGFR-AF MONTENEGRIN >60 Normal >=60 [facility] Comment on above: Performed By: #### B MP #### [facility] [address] [address] [address] Brandon Hodges EGFR-NON AF MONTENEGRIN >60 Normal >=60 [facility] Comment on above: Performed By: #### B MP #### [facility] [address] [address] [address] Brandon Hodges Glucose [Mass/Vol] 124 mg/dL Critically high 74-106 [facility] Comment on above: Performed By: #### B MP #### [facility] [address] [address] [address] Brandon Hodges Potassium [Moles/Vol] 4.2 mmol/L Normal 3.5-5.1 [facility] Comment on above: Performed By: #### B MP #### [facility] [address] [address] [address] Brandon Hodges Sodium [Moles/Vol] 141 mmol/L Normal 136-145 [facility] Comment on above: Performed By: #### B MP #### [facility] [address] [place] [address] Dr. Brandon Hodges Urea nitrogen [Mass/Vol] 19.0 mg/dL Critically high 7.0-18.0 [facility] Comment on above: Performed By: #### B MP #### [facility] [address] [place] [address] Dr. Brandon Hodges Urea nitrogen/Creatinine [Mass ratio] 25.0 mg/mg Normal [facility] Comment on above: Performed By: #### B MP #### [facility] [address] [place] [address] Dr. Brandon Hodges TESTOSTERONE, FREE,DIRECT, T OTALon 04-25-2022 Free Testosterone(Direct) <0.2 Normal 0.0-4.2 [facility] Comment on above: Result Comment: Perf ormed at: BN Performed By: #### I NSULIN #### [facility] [address] [place] [address] Dr. Brandon Hodges Testosterone [Mass/Vol] 3 ng/dL Critically low 4-50 [facility] Comment on above: Result Comment: Perf ormed at: CB Performed By: #### I NSULIN #### [facility] [address] [place] [address] Dr. Brandon Hodges ESTRONEon 04-23-2022 Estrone, Serum 20 pg/mL Normal [facility] Comment on above: Result Comment: Rang e Adult (Premenopausal) 27 - 231 Menstrual Cycle (1-10 days) 19 - 149 Menstrual Cycle (11-20 days) 32 - 176 Menstrual Cycle (21-30 days) 37 - 200 Adult (Postmenopausal) 0 - 125 Performed By: #### I NSULIN #### [facility] [address] [place] [address] Dr. Brandon Hodges REVERSE T3on 04-23-2022 Reverse T3, Serum 36.8 ng/dL Critically high 9.2-24.1 [facility] Comment on above: Result Comment: This test was developed and its performance characteristics determined by [employer]. It has not been cleared or approved by the Food and Drug Administration. Performed By: #### B MP #### [facility] [address] [place] [address] Dr. Brandon Hodges CORTISOLon 04-20-2022 Cortisol 1.0 ug/dL Normal [facility] Comment on above: Result Comment: [place] isol AM 6.2 - 19.4 Cortisol PM 2.3 - 11.9 Performed By: #### C ORTISO #### [facility] [address] [place] [address] Dr. Brandon Hodges DHEA-SULFATEon 04-20-2022 DHEA-Sulfate 55.9 ug/dL Normal 41.2-243.7 [facility] Comment on above: Performed By: #### I NSULIN #### [facility] [address] [place] [address] Dr. Brandon Hodges ESTRADIOLon 04-20-2022 Estradiol 25.1 pg/mL Normal [facility] Comment on above: Result Comment: Adul t Female: Follicular phase 12.5 - 166.0 Ovulation phase 85.8 - 498.0 Luteal phase 43.8 - 211.0 Postmenopausal <6.0 - 54.7 1st trimester 215.0 - >4300.0 Jason ECLIA methodology Performed By: #### B MP #### [facility] [address] [place] [address] Dr. Brandon Hodges INSULINon 04-20-2022 Insulin 30.0 uIU/mL Critically high 2.6-24.9 [facility] Comment on above: Performed By: #### I NSULIN #### [facility] [address] [place] [address] Dr. Brandon Hodges PROGESTERONEon 04-20-2022 Progesterone <0.1 Normal [facility] Comment on above: Result Comment: Foll icular phase 0.1 - 0.9 Luteal phase 1.8 - 23.9 Ovulation phase 0.1 - 12.0 First trimester 11.0 - 44.3 Second trimester 25.4 - 83.3 Third trimester 58.7 - 214.0 Postmenopausal 0.0 - 0.1 Performed By: #### B MP #### [facility] [address] [address] [address] Brandon Hodges SEX HORMONE-BINDING GLOBULIN on 04-20-2022 Sex Horm Binding Glob, Serum 30.3 nmol/L Normal 24.6-122.0 [facility] Comment on above: Performed By: #### B MP #### [facility] [address] [place] [address] Dr. Brandon Hodges FERRITINon 04-19-2022 Ferritin [Mass/Vol] 53.0 ng/mL Normal 6.2-137.0 [facility] Comment on above: Performed By: #### B MP #### [facility] [address] [address] [address] Brandon Hodges FREE T3on 04-19-2022 FREE T3 2.34 pg/mlL Normal 2.18-3.98 [facility] Comment on above: Performed By: #### T SH, T4, FT3, BMP, LIPID, LIVER #### [facility] [address] [address] [address] Brandon Hodges FREE T4on 04-19-2022 Free T4 [Mass/Vol] 0.92 ng/dL Normal 0.76-1.46 [facility] Comment on above: Performed By: #### B MP #### [facility] [address] [place] [address] Dr. Brandon Hodges GLYCOHEMOGLOBIN A1Con 2022 ADA RECOMMENDATION SEE BELOW Normal [facility] Comment on above: Result Comment: ADA RECOMMENDED LIMIT 4.0 - 6.0 ADA THERAPEUTIC TARGET < 7.0 ACTION SUGGESTED > 7.0 Performed By: #### A 1C #### [facility] [address] [place] [address] Dr. Brandon Hodges Glucose [Mass/Vol] 105 mg/dL Normal [facility] Comment on above: Performed By: #### A 1C #### [facility] [address] [place] [address] Dr. Brandon Hodges HbA1c (Bld) [Mass fraction] 5.3 % Normal 4.5-6.2 [facility] Comment on above: Performed By: #### A 1C #### [facility] [address] [place] [address] Dr. Brandon Hodges LIPID PROFILEon 04-19-2022 CHOL-HDL RATIO NORM SEE BELOW Normal [facility] Comment on above: Result Comment: 3.3 - 4.4 LOW RISK 4.4 - 7.1 AVERAGE RISK 7.1 - 11.0 MODERATE RISK >11.0 HIGH RISK Performed By: #### T SH, T4, FT3, BMP, LIPID, LIVER #### [facility] [address] [place] [address] Dr. Brandon Hodges Cholesterol [Mass/Vol] 258 mg/dL Critically high <=200 [facility] Comment on above: Performed By: #### T SH, T4, FT3, BMP, LIPID, LIVER #### [facility] [address] [place] [address] Dr. Brandon Hodges Cholesterol in HDL [Mass/Vol] 47 mg/dL Normal 40-60 [facility] Comment on above: Performed By: #### T SH, T4, FT3, BMP, LIPID, LIVER #### [facility] [address] [place] [address] Dr. Brandon Hodges Cholesterol in LDL [Mass/Vol] 199.0 mg/dL Normal [facility] Comment on above: Performed By: #### T SH, T4, FT3, BMP, LIPID, LIVER #### [facility] [address] [place] [address] Dr. Brandon Hodges Cholesterol.total/Chol esterol in HDL [Mass ratio] 5.5 {ratio} Normal [facility] Comment on above: Performed By: #### T SH, T4, FT3, BMP, LIPID, LIVER #### [facility] [address] [address] [address] Brandon Hodges HDL NORMAL > or = 60 mg/dl - LOW CARDIOVASCULAR RISK <40 mg/dl - HIGH CARDIOVASCULAR RISK Normal [facility] Comment on above: Performed By: #### T SH, T4, FT3, BMP, LIPID, LIVER #### [facility] [address] [place] [address] Dr. Brandon Hodges LDL CALC NORMAL SEE BELOW Normal [facility] Comment on above: Result Comment: <100 mg/dl OPTIMAL 100 - 129 mg/dl NEAR OR ABOVE OPTIMAL 130 - 159 mg/dl BORDERLINE HIGH 160 - 189 mg/dl HIGH >190 mg/dl VERY HIGH Performed By: #### T SH, T4, FT3, BMP, LIPID, LIVER #### [facility] [address] [place] [address] Dr. Brandon Hodges Triglyceride [Mass/Vol] 60 mg/dL Normal <=150 [facility] Comment on above: Performed By: #### T SH, T4, FT3, BMP, LIPID, LIVER #### [facility] [address] [address] [address] Brandon Hodges VLDL CALC 12.0 mg/dL Normal [facility] Comment on above: Performed By: #### T SH, T4, FT3, BMP, LIPID, LIVER #### [facility] [address] [place] [address] Dr. Brandon Hodges LIVER PROFILEon 04-19-2022 Albumin [Mass/Vol] 4.3 g/dL Normal 3.4-5.0 [facility] Comment on above: Performed By: #### T SH, T4, FT3, BMP, LIPID, LIVER #### [facility] [address] [place] [address] Dr. Brandon Hodges Albumin/Globulin [Mass ratio] 1.3 {ratio} Normal [facility] Comment on above: Performed By: #### T SH, T4, FT3, BMP, LIPID, LIVER #### [facility] [address] [place] [address] Dr. Brandon Hodges ALP [Catalytic activity/Vol] 86 U/L Normal 46-116 [facility] Comment on above: Performed By: #### T SH, T4, FT3, BMP, LIPID, LIVER #### [facility] [address] [place] [address] Dr. Brandon Hodges ALT [Catalytic activity/Vol] 31 U/L Normal 14-59 [facility] Comment on above: Performed By: #### T SH, T4, FT3, BMP, LIPID, LIVER #### [facility] [address] [place] [address] Dr. Brandon Hodges AST [Catalytic activity/Vol] 18 U/L Normal 15-37 [facility] Comment on above: Performed By: #### T SH, T4, FT3, BMP, LIPID, LIVER #### [facility] [address] [place] [address] Dr. Brandon Hodges BILI, CONJUGATED <0.1 Normal 0.0-0.2 [facility] Comment on above: Performed By: #### T SH, T4, FT3, BMP, LIPID, LIVER #### [facility] [address] [place] [address] Dr. Brandon Hodges Bilirubin [Mass/Vol] 0.3 mg/dL Normal 0.2-1.0 [facility] Comment on above: Performed By: #### T SH, T4, FT3, BMP, LIPID, LIVER #### [facility] [address] [place] [address] Dr. Brandon Hodges Globulin (S) [Mass/Vol] 3.4 g/dL Normal [facility] Comment on above: Performed By: #### T SH, T4, FT3, BMP, LIPID, LIVER #### [facility] [address] [place] [address] Dr. Brandon Hodges Protein [Mass/Vol] 7.7 g/dL Normal 6.4-8.2 [facility] Comment on above: Performed By: #### T SH, T4, FT3, BMP, LIPID, LIVER #### [facility] [address] [place] [address] Dr. Brandon Hodges PROF CHEM 8 (BAS METB)on Anion gap [Moles/Vol] 14.5 mmol/L Normal [facility] Comment on above: Performed By: #### T SH, T4, FT3, BMP, LIPID, LIVER #### [facility] [address] [place] [address] Dr. Brandon Hodges Calcium [Mass/Vol] 9.6 mg/dL Normal 8.5-10.1 [facility] Comment on above: Performed By: #### T SH, T4, FT3, BMP, LIPID, LIVER #### [facility] [address] [place] [address] Dr. Brandon Hodges Chloride [Moles/Vol] 108 mmol/L Critically high 98-107 [facility] Comment on above: Performed By: #### T SH, T4, FT3, BMP, LIPID, LIVER #### [facility] [address] [place] [address] Dr. Brandon Hodges CO2 [Moles/Vol] 26.1 mmol/L Normal 21.0-32.0 [facility] Comment on above: Performed By: #### T SH, T4, FT3, BMP, LIPID, LIVER #### [facility] [address] [place] [address] Dr. Brandon Hodges Creatinine [Mass/Vol] 0.75 mg/dL Normal 0.55-1.02 [facility] Comment on above: Performed By: #### T SH, T4, FT3, BMP, LIPID, LIVER #### [facility] [address] [place] [address] Dr. Brandon Hodges EGFR-AF MONTENEGRIN >60 Normal >=60 [facility] Comment on above: Performed By: #### T SH, T4, FT3, BMP, LIPID, LIVER #### [facility] [address] [place] [address] Dr. Brandon Hodges EGFR-NON AF MONTENEGRIN >60 Normal >=60 [facility] Comment on above: Performed By: #### T SH, T4, FT3, BMP, LIPID, LIVER #### [facility] [address] [place] [address] Dr. Brandon Hodges Glucose [Mass/Vol] 122 mg/dL Critically high 74-106 [facility] Comment on above: Performed By: #### T SH, T4, FT3, BMP, LIPID, LIVER #### [facility] [address] [place] [address] Dr. Brandon Hodges Potassium [Moles/Vol] 4.6 mmol/L Normal 3.5-5.1 [facility] Comment on above: Performed By: #### T SH, T4, FT3, BMP, LIPID, LIVER #### [facility] [address] [place] [address] Dr. Brandon Hodges Sodium [Moles/Vol] 144 mmol/L Normal 136-145 [facility] Comment on above: Performed By: #### T SH, T4, FT3, BMP, LIPID, LIVER #### [facility] [address] [place] [address] Dr. Brandon Hodges Urea nitrogen [Mass/Vol] 13.0 mg/dL Normal 7.0-18.0 [facility] Comment on above: Performed By: #### T SH, T4, FT3, BMP, LIPID, LIVER #### [facility] [address] [place] [address] Dr. Brandon Hodges Urea nitrogen/Creatinine [Mass ratio] 17.3 mg/mg Normal [facility] Comment on above: Performed By: #### T SH, T4, FT3, BMP, LIPID, LIVER #### [facility] [address] [place] [address] Dr. Brandon Hodges T4on 04-19-2022 T4 [Mass/Vol] 9.00 ug/dL Normal 4.80-13.90 [facility] Comment on above: Performed By: #### T SH, T4, FT3, BMP, LIPID, LIVER #### [facility] [address] [place] [address] Dr. Brandon Hodges TSHon 04-19-2022 TSH 0.335 uIU/mL Critically low 0.358-3.740 [facility] Comment on above: Performed By: #### T SH, T4, FT3, BMP, LIPID, LIVER #### [facility] [address] [place] [address] Dr. Brandon Hodges VITAMIN D 25 OHon 04-19-2022 VIT D 25-OH 29.4 ng/mL Normal [facility] Comment on above: Performed By: #### B MP #### [facility] [address] [place] [address] Dr. Brandon Hodges VIT D RANGES SEE BELOW Normal [facility] Comment on above: Result Comment: <20 ng/mL Vit D deficient 20 - <30 ng/mL Vit D insufficient 30 - 100 ng/mL Vit D sufficient >100 ng/mL Potential Toxicity Performed By: #### B #### [facility] [address] [address] [address] Brandon Hodges MG MAMM SCREEN 3D KRISTI CADon 01-11-2022 MG MAMM SCREEN 3D KRISTI CAD Patient: AUDREY ISAACS Exam Date: 01/11/2022 : 1975 Gender:F Ordering : VANCE YESICAWilner [facility] Admission #: [id number] Family : Order #: [id number] CLICK HERE TO VIEW EXAM RADIOLOGY REPORT [...] leukemia cancer at age 72. LOCATION: [facility] BREAST COMPOSITION: Heterogeneously dense,which may [...] Hollingsworth M.D. on 01/15/2022 at 12:03 Normal [facility] CHEMISTRYOrdered By: SYSTEM SYSTEM on 08-17-2021 [...] rate/Area] mL/min/1.73 m2 Normal >=59mL/min/1 .73 m2 [facility] Chem S Glucose [Mass/Vol] 96 mg/dL Normal [...] 8.7 fL Normal 6.4 - 10.8 fL [facility] [employer] Platelets (Bld) [#/Vol] 179.0 E9/L Normal 150.0 - 500.0 E9/L FT [employer] RBC (Bld) [#/Vol] 4.8 E12/L Normal [...] by Colt Silvestre on 08/01/2021 1109 Normal [facility] Specialist THYROGLOBULINon 06-24-2021 Thyroglobulin 3.9 ng/mL Normal [facility] Comment on above: Result Comment: This [...] is 2.0 ng/mL. Performed By: #### B #### [facility] [address] [place] [address] Dr. Brandon Hodges RENITA by IFAon 06-18-2021 Antinuclear Antibodies, IFA Negative Normal [facility] Comment on above: Result Comment: Nega tive <1:80 Borderline 1:80 Positive >1:80 ICAP nomenclature: AC-0 For more information about Hep-2 cell patterns use ANApatterns.org, the official website for the International Consensus on Antinuclear Antibody (RENITA) Patterns (ICAP). Performed By: #### I NSULIN #### [facility] [address] [place] [address] Dr. Brandon Hodges ANTISTREPTOLYSIN O AB (ASO)o n 06-16-2021 Antistreptolysin O Ab 108.1 IU/mL Normal 0.0-200.0 [facility] Comment on above: Performed By: #### I NSULIN #### [facility] [address] [place] [address] Dr. Brandon Hodges RHEUMATOID FACTORon 06-17-19 RA Latex Turbid. 11.1 IU/mL Normal <14.0 [facility] Comment on above: Performed By: #### I NSULIN #### [facility] [address] [place] [address] Dr. Brandon Hodges CBC AUTO DIFFon 06-15-2021 BASO # 0.0 103/ul Normal 0.0-0.1 [facility] Comment on above: Performed By: #### I NSULIN #### [facility] [address] [place] [address] Dr. Brandon Hodges Basophils/100 WBC (Bld) 0.4 % Normal 0.2-2.0 [facility] Comment on above: Performed By: #### I NSULIN #### [facility] [address] [place] [address] Dr. Brandon Hodges EO # 0.0 103/ul Normal 0.0-0.7 [facility] Comment on above: Performed By: #### I NSULIN #### [facility] [address] [place] [address] Dr. Brandon Hodges Eosinophils/100 WBC (Bld) 0.7 % Critically low 0.9-7.0 [facility] Comment on above: Performed By: #### I NSULIN #### [facility] [address] [place] [address] Dr. Brandon Hodges Erythrocyte distribution width (RBC) [Ratio] 12.8 % Normal 11.0-15.0 [facility] Comment on above: Performed By: #### I NSULIN #### [facility] [address] [place] [address] Dr. Brandon Hodges Hematocrit (Bld) [Volume fraction] 43.3 % Normal 36.0-48.0 [facility] Comment on above: Performed By: #### I NSULIN #### [facility] [address] [place] [address] Dr. Brandon Hodges Hemoglobin (Bld) [Mass/Vol] 14.1 g/dL Normal 12.0-16.0 [facility] Comment on above: Performed By: #### I NSULIN #### [facility] [address] [place] [address] Dr. Brandon Hodges IG # 0.00 10e3/ul Normal 0.00-0.03 [facility] Comment on above: Performed By: #### I NSULIN #### [facility] [address] [place] [address] Dr. Brandon Hodges IG % 0.0 % Normal 0.0-0.5 [facility] Comment on above: Performed By: #### I NSULIN #### [facility] [address] [place] [address] Dr. Brandon Hodges LYMPH # 1.6 103/ul Normal 1.2-3.8 [facility] Comment on above: Performed By: #### I NSULIN #### [facility] [address] [place] [address] Dr. Brandon Hodges Lymphocytes/100 WBC (Bld) 35.1 % Normal 20.5-60.0 [facility] Comment on above: Performed By: #### I NSULIN #### [facility] [address] [place] [address] Dr. Brandon Hodges MANUAL DIFF REQ NO Normal [facility] Comment on above: Performed By: #### I NSULIN #### [facility] [address] [address] [address] Brandon Hodges MCH (RBC) [Entitic mass] 29.4 pg Normal 26.7-34.0 [facility] Comment on above: Performed By: #### I NSULIN #### [facility] [address] [place] [address] Dr. Brandon Hodges MCHC (RBC) [Mass/Vol] 32.6 g/dL Normal 29.9-35.2 [facility] Comment on above: Performed By: #### I NSULIN #### [facility] [address] [place] [address] Dr. Brandon Hodges MCV (RBC) [Entitic vol] 90.2 fL Normal 81.0-99.0 [facility] Comment on above: Performed By: #### I NSULIN #### [facility] [address] [place] [address] Dr. Brandon Hodges MONO # 0.3 103/ul Normal 0.3-0.8 [facility] Comment on above: Performed By: #### I NSULIN #### [facility] [address] [place] [address] Dr. Brandon Hodges Monocytes/100 WBC (Bld) 6.8 % Normal 1.7-12.0 [facility] Comment on above: Performed By: #### I NSULIN #### [facility] [address] [place] [address] Dr. Brandon Hodges NEUT # 2.6 103/ul Normal 1.4-6.5 [facility] Comment on above: Performed By: #### I NSULIN #### [facility] [address] [place] [address] Dr. Brandon Hodges Neutrophils/100 WBC (Bld) 57.0 % Normal 43.0-75.0 [facility] Comment on above: Performed By: #### I NSULIN #### [facility] [address] [place] [address] Dr. Brandon Hodges Platelet mean volume (Bld) [Entitic vol] 10.8 fL Normal 9.5-13.5 [facility] Comment on above: Performed By: #### I NSULIN #### [facility] [address] [place] [address] Dr. Brandon Hodges PLT 220 103/ul Normal 150-450 [facility] Comment on above: Performed By: #### I NSULIN #### [facility] [address] [address] [address] Brandon Hodges RBC 4.80 106/ul Normal 4.20-5.40 [facility] Comment on above: Performed By: #### I NSULIN #### [facility] [address] [address] [address] Brandon Hodges WBC 4.6 103/ul Normal 4.0-11.0 [facility] Comment on above: Performed By: #### I NSULIN #### [facility] [address] [place] [address] Dr. Brandon Hodges CRPon 06-15-2021 CRP [Mass/Vol] mg/L Normal <=1.0 [facility] Comment on above: Performed By: #### T SH, T4, FT3, BMP, LIPID, LIVER #### [facility] [address] [place] [address] Dr. Brandon Hodges FREE T4on 06-15-2021 Free T4 [Mass/Vol] 0.86 ng/dL Normal 0.76-1.46 [facility] Comment on above: Performed By: #### I NSULIN #### [facility] [address] [place] [address] Dr. Brandon Hodges LIPID PROFILEon 06-15-2021 CHOL-HDL RATIO NORM SEE BELOW Normal [facility] Comment on above: Result Comment: 3.3 - 4.4 LOW RISK 4.4 - 7.1 AVERAGE RISK 7.1 - 11.0 MODERATE RISK >11.0 HIGH RISK Performed By: #### T SH, T4, FT3, BMP, LIPID, LIVER #### [facility] [address] [place] [address] Dr. Brandon Hodges Cholesterol [Mass/Vol] 211 mg/dL Critically high <=200 [facility] Comment on above: Performed By: #### T SH, T4, FT3, BMP, LIPID, LIVER #### [facility] [address] [address] [address] Brandon Hodges Cholesterol in HDL [Mass/Vol] 37 mg/dL Critically low 40-60 [facility] Comment on above: Performed By: #### T SH, T4, FT3, BMP, LIPID, LIVER #### [facility] [address] [address] [address] Brandon Hodges Cholesterol in LDL [Mass/Vol] 151.4 mg/dL Normal [facility] Comment on above: Performed By: #### T SH, T4, FT3, BMP, LIPID, LIVER #### [facility] [address] [place] [address] Dr. Brandon Hodges Cholesterol.total/Chol esterol in HDL [Mass ratio] 5.7 {ratio} Normal [facility] Comment on above: Performed By: #### T SH, T4, FT3, BMP, LIPID, LIVER #### [facility] [address] [place] [address] Dr. Brandon Hodges HDL NORMAL > or = 60 mg/dl - LOW CARDIOVASCULAR RISK <40 mg/dl - HIGH CARDIOVASCULAR RISK Normal [facility] Comment on above: Performed By: #### T SH, T4, FT3, BMP, LIPID, LIVER #### [facility] [address] [place] [address] Dr. rBandon Hodges LDL CALC NORMAL SEE BELOW Normal [facility] Comment on above: Result Comment: <100 mg/dl OPTIMAL 100 - 129 mg/dl NEAR OR ABOVE OPTIMAL 130 - 159 mg/dl BORDERLINE HIGH 160 - 189 mg/dl HIGH >190 mg/dl VERY HIGH Performed By: #### T SH, T4, FT3, BMP, LIPID, LIVER #### [facility] [address] [place] [address] Dr. Brandon Hodges Triglyceride [Mass/Vol] 113 mg/dL Normal <=150 [facility] Comment on above: Performed By: #### T SH, T4, FT3, BMP, LIPID, LIVER #### [facility] [address] [place] [address] Dr. Brandon Hodges VLDL CALC 22.6 mg/dL Normal [facility] Comment on above: Performed By: #### T SH, T4, FT3, BMP, LIPID, LIVER #### [facility] [address] [place] [address] Dr. Brandon Hodges PROF 14(COMP METB)on 022 Albumin [Mass/Vol] 3.8 g/dL Normal 3.4-5.0 [facility] Comment on above: Performed By: #### T SH, T4, FT3, BMP, LIPID, LIVER #### [facility] [address] [place] [address] Dr. Brandon Hodges Albumin/Globulin [Mass ratio] 1.2 {ratio} Normal [facility] Comment on above: Performed By: #### T SH, T4, FT3, BMP, LIPID, LIVER #### [facility] [address] [place] [address] Dr. Brandon Hodges ALP [Catalytic activity/Vol] 75 U/L Normal 46-116 [facility] Comment on above: Performed By: #### T SH, T4, FT3, BMP, LIPID, LIVER #### [facility] [address] [place] [address] Dr. Brandon Hodges ALT [Catalytic activity/Vol] 26 U/L Normal 14-59 [facility] Comment on above: Performed By: #### T SH, T4, FT3, BMP, LIPID, LIVER #### [facility] [address] [place] [address] Dr. Brandon Hodges Anion gap [Moles/Vol] 10.2 mmol/L Normal [facility] Comment on above: Performed By: #### T SH, T4, FT3, BMP, LIPID, LIVER #### [facility] [address] [place] [address] Dr. Brandon Hodges AST [Catalytic activity/Vol] 10 U/L Critically low 15-37 [facility] Comment on above: Performed By: #### T SH, T4, FT3, BMP, LIPID, LIVER #### [facility] [address] [address] [address] Brandon Hodges Bilirubin [Mass/Vol] 0.4 mg/dL Normal 0.2-1.0 [facility] Comment on above: Performed By: #### T SH, T4, FT3, BMP, LIPID, LIVER #### [facility] [address] [place] [address] Dr. Brandon Hodges Calcium [Mass/Vol] 8.3 mg/dL Critically low 8.5-10.1 [facility] Comment on above: Performed By: #### T SH, T4, FT3, BMP, LIPID, LIVER #### [facility] [address] [place] [address] Dr. Brandon Hodges Chloride [Moles/Vol] 103 mmol/L Normal 98-107 [facility] Comment on above: Performed By: #### T SH, T4, FT3, BMP, LIPID, LIVER #### [facility] [address] [place] [address] Dr. Brandon Hodges CO2 [Moles/Vol] 28.8 mmol/L Normal 21.0-32.0 [facility] Comment on above: Performed By: #### T SH, T4, FT3, BMP, LIPID, LIVER #### [facility] [address] [place] [address] Dr. Brandon Hodges Creatinine [Mass/Vol] 0.81 mg/dL Normal 0.55-1.02 [facility] Comment on above: Performed By: #### T SH, T4, FT3, BMP, LIPID, LIVER #### [facility] [address] [place] [address] Dr. Brandon Hodges EGFR-AF MONTENEGRIN >60 Normal >=60 [facility] Comment on above: Performed By: #### T SH, T4, FT3, BMP, LIPID, LIVER #### [facility] [address] [place] [address] Dr. Brandon Hodges EGFR-NON AF MONTENEGRIN >60 Normal >=60 [facility] Comment on above: Performed By: #### T SH, T4, FT3, BMP, LIPID, LIVER #### [facility] [address] [place] [address] Dr. Brandon Hodges Globulin (S) [Mass/Vol] 3.1 g/dL Normal [facility] Comment on above: Performed By: #### T SH, T4, FT3, BMP, LIPID, LIVER #### [facility] [address] [place] [address] Dr. Brandon Hodges Glucose [Mass/Vol] 95 mg/dL Normal 74-106 [facility] Comment on above: Performed By: #### T SH, T4, FT3, BMP, LIPID, LIVER #### [facility] [address] [place] [address] Dr. Brandon Hodges Potassium [Moles/Vol] 3.9 mmol/L Normal 3.5-5.1 [facility] Comment on above: Performed By: #### T SH, T4, FT3, BMP, LIPID, LIVER #### [facility] [address] [place] [address] Dr. Brandon Hodges Protein [Mass/Vol] 6.9 g/dL Normal 6.1-8.2 [facility] Comment on above: Performed By: #### T SH, T4, FT3, BMP, LIPID, LIVER #### [facility] [address] [place] [address] Dr. Brandon Hodges Sodium [Moles/Vol] 138 mmol/L Normal 136-145 [facility] Comment on above: Performed By: #### T SH, T4, FT3, BMP, LIPID, LIVER #### [facility] [address] [place] [address] Dr. Brandon Hodges Urea nitrogen [Mass/Vol] 20.0 mg/dL Critically high 7.0-18.0 [facility] Comment on above: Performed By: #### T SH, T4, FT3, BMP, LIPID, LIVER #### [facility] [address] [place] [address] Dr. Brandon Hodges Urea nitrogen/Creatinine [Mass ratio] 24.7 mg/mg Normal [facility] Comment on above: Performed By: #### T SH, T4, FT3, BMP, LIPID, LIVER #### [facility] [address] [place] [address] Dr. Brandon Hodges SED RATE WESTERGRENon 2021 SED RATE <1 Normal <=20 [facility] Comment on above: Performed By: #### B MP #### [facility] [address] [place] [address] Dr. Brandon Hodges TSHon 06-15-2021 TSH 1.006 uIU/mL Normal 0.470-4.680 [facility] Comment on above: Performed By: #### T SH, T4, FT3, BMP, LIPID, LIVER #### [facility] [address] [place] [address] Dr. Brandon Hodges TSH RANGE SEE BELOW Normal [facility] Comment on above: Result Comment: <0.3 4 UIU/ml HYPERTHYROID 0.34-5.60 UIU/ml EUTHYROID >5.60 UIU/ml HYPOTHYROID Performed By: #### T SH, T4, FT3, BMP, LIPID, LIVER #### [facility] [address] [place] [address] Dr. Brandon Hodges URIC ACID SERUMon 06-15-2021 Urate [Mass/Vol] 4.2 mg/dL Normal 2.5-6.2 [facility] Comment on above: Performed By: #### T SH, T4, FT3, BMP, LIPID, LIVER #### [facility] [address] [place] [address] Dr. Brandon Hodges VITAMIN D 25 OHon 06-15-2021 VIT D 25-OH 47.6 ng/mL Normal [facility] Comment on above: Performed By: #### B MP #### [facility] [address] [place] [address] Dr. Brandon Hodges VIT D RANGES SEE BELOW Normal [facility] Comment on above: Result Comment: <20 ng/mL Vit D deficient 20 - <30 ng/mL Vit D insufficient 30 - 100 ng/mL Vit D sufficient >100 ng/mL Potential Toxicity Performed By: #### B MP #### [facility] [address] [place] [address] Dr. Brandon Hodges XR KNEE KRISTI 3 [...] by: DOUGLAS SOLANO Date: 2021-06-14 13:35 Normal [facility] Vital Signs Date Time Vital Sign Value Performing Clinician Faci lity 12-04-2023 09:33-0400 Body height 177.8 cm Yesica Pastranagabino ACADEMIC ASSISTANT Work Phone: [facility] 12-04-2023 09:33-0400 Body mass index (BMI) [Ratio] 33.23 kg/m2 Yesica Krishan ACADEMIC ASSISTANT Work Phone: [facility] 12-04-2023 09:33-0400 Body temperature 98.8 [degF] Yesica Pastranagabino ACADEMIC ASSISTANT Work Phone: [facility] 12-04-2023 09:33-0400 Body weight 105.05 kg Yesica Fortunez ACADEMIC ASSISTANT Work Phone: [facility] 12-04-2023 09:33-0400 Diastolic blood pressure 82 mm[Hg] Yesica Devonsophiegabino ACADEMIC ASSISTANT Work Phone: [facility] 12-04-2023 09:33-0400 Heart rate 70 /min Yesica Pastranastephz ACADEMIC ASSISTANT Work Phone: [facility] 12-04-2023 09:33-0400 Respiratory rate 18 /min Yesica Victorianostephz ACADEMIC ASSISTANT Work Phone: [facility] 12-04-2023 09:33-0400 SaO2% (BldA) [Mass fraction] 99 % Yesica Krishan ACADEMIC ASSISTANT Work Phone: [facility] 12-04-2023 09:33-0400 Systolic blood pressure 132 mm[Hg] Yesica Devonhstephz ACADEMIC ASSISTANT Work Phone: [facility] 10-30-2023 08:45-0400 Body height 177.8 cm Yesica Victorianoholz ACADEMIC ASSISTANT Work Phone: [facility] 10-30-2023 08:45-0400 Body mass index (BMI) [Ratio] 33.17 kg/m2 Yesica Devonhholz ACADEMIC ASSISTANT Work Phone: [facility] 10-30-2023 08:45-0400 Body temperature 98.4 [degF] Yesicawilner Pastranaholz ACADEMIC ASSISTANT Work Phone: [facility] 10-30-2023 08:45-0400 Body weight 104.87 kg Yesica Victorianoholz ACADEMIC ASSISTANT Work Phone: [facility] 10-30-2023 08:45-0400 Diastolic blood pressure 80 mm[Hg] Yesica Devonhholz ACADEMIC ASSISTANT Work Phone: [facility] 10-30-2023 08:45-0400 Heart rate 71 /min Yesica Victorianoholz ACADEMIC ASSISTANT Work Phone: [facility] 10-30-2023 08:45-0400 Respiratory rate 18 /min Yesica Victorianoholz ACADEMIC ASSISTANT Work Phone: [facility] 10-30-2023 08:45-0400 SaO2% (BldA) [Mass fraction] 97 % Yesica Victorianoholz ACADEMIC ASSISTANT Work Phone: [facility] 10-30-2023 08:45-0400 Systolic blood pressure 120 mm[Hg] Yesica Victorianoholz ACADEMIC ASSISTANT Work Phone: [facility] 09-23-2023 13:00-0400 Diastolic blood pressure 85 mm[Hg] Boby Cevallos [facility] 09-23-2023 13:00-0400 Heart rate 69 /min Boby Cevallos [facility] 09-23-2023 13:00-0400 Mean blood pressure 99 mm[Hg] Boby Mart [facility] 09-23-2023 13:00-0400 Respiratory rate 16 /min Boby Ballesterose [facility] 09-23-2023 13:00-0400 SaO2% (BldA) [Mass fraction] 98 % Boby Cevallos [facility] 09-23-2023 13:00-0400 Systolic blood pressure 127 mm[Hg] Boby Ballesterose [facility] 09-23-2023 12:00-0400 Diastolic blood pressure 82 mm[Hg] Boby Ballesterose [facility] 09-23-2023 12:00-0400 Heart rate 68 /min Boby Cevallos [facility] 09-23-2023 12:00-0400 Mean blood pressure 94 mm[Hg] Boby Ballesterose [facility] 09-23-2023 12:00-0400 SaO2% (BldA) [Mass fraction] 96 % Boby Ballesterose [facility] 09-23-2023 12:00-0400 Systolic blood pressure 119 mm[Hg] Boby Cevallos [facility] 09-23-2023 11:05-0400 gluc 89 mg/dL Boby Ballesterose [facility] 09-23-2023 11:05-0400 gluc Boby Ballesterose [facility] 09-23-2023 10:59-0400 Body temperature 98.6 [degF] Boby Ballesterose [facility] 09-23-2023 10:59-0400 Diastolic blood pressure 96 mm[Hg] Boby Ballesterose [facility] 09-23-2023 10:59-0400 Heart rate 84 /min Boby Cevallos [facility] 09-23-2023 10:59-0400 Respiratory rate 18 /min Boby Cevallos [facility] 09-23-2023 10:59-0400 SaO2% (BldA) [Mass fraction] 99 % Boby Cevallos [facility] 09-23-2023 10:59-0400 Systolic blood pressure 140 mm[Hg] Boby Cevallos [facility] 01-20-2023 17:00-0500 Body height 176.53 cm Tika Shanna Other [employer] Other 01-20-2023 17:00-0500 Body mass index (BMI) [Ratio] 33.85 kg/m2 Tika Shanna Other [employer] Other 01-20-2023 17:00-0500 Body temperature 98 [degF] Tika Shanna Other [employer] Other 01-20-2023 17:00-0500 Body weight 105.51 kg Tika Shanna Other [employer] Other 01-20-2023 17:00-0500 Respiratory rate 18 /min Tika Shanna Other [employer] Other 01-20-2023 17:00-0500 SaO2% (BldA) [Mass fraction] 99 % Tika Shanna Other [employer] Other 06-11-2022 15:50-0400 Body height 176.53 cm Elise Stone Other [employer] Other 06-11-2022 15:50-0400 Body mass index (BMI) [Ratio] 36.39 kg/m2 Elise Stone Other [employer] Other 06-11-2022 15:50-0400 Body temperature 97.3 [degF] Elise Stone Other [employer] Other 06-11-2022 15:50-0400 Body weight 113.4 kg Elise Stone Other [employer] Other 06-11-2022 15:50-0400 Respiratory rate 18 /min Elise Stone Other [employer] Other 06-11-2022 15:50-0400 SaO2% (BldA) [Mass fraction] 99 % Elise Stone Other [employer] Other 02-28-2022 15:11-0500 Blood Pressure Location Juancarlos Lonnieofferson [facility] 02-28-2022 15:11-0500 Diastolic blood pressure 80 mm[Hg] Juancarlos Christofferson [facility] 02-28-2022 15:11-0500 Heart rate 84 /min Juancarlos Christofferson [facility] 02-28-2022 15:11-0500 Respiratory rate 18 /min Juancarlos Christofferson [facility] 02-28-2022 15:11-0500 SaO2% (BldA) [Mass fraction] 96 % Juancarlos Christofferson [facility] 02-28-2022 15:11-0500 Systolic blood pressure 140 mm[Hg] Juancarlos Christofferson [facility] 10-03-2022 15:13-0400 Blood Pressure Location Juancarlos Giraldo [facility] 11-19-2021 15:13-0400 Diastolic blood pressure 75 mm[Hg] Juancarlos Giraldo [facility] 11-19-2021 15:13-0400 Heart rate 86 /min Juancarlos Giraldo [facility] 11-19-2021 15:13-0400 Respiratory rate 18 /min Juancarlos Giraldo [facility] 11-19-2021 15:13-0400 SaO2% (BldA) [Mass fraction] 96 % Juancarlos Giraldo [facility] 11-19-2021 15:13-0400 Systolic blood pressure 126 mm[Hg] Juancarlos Enzo [facility] Encounters Encounter Date Encounter Type Care Provider Facility Start: 01-22-2024 End: 01-22-2024 Orders Only Yesica Nickerson ACADEMIC ASSISTANT Work Phone: [facility] Comment on above: Menopause ovarian fa ilure (Primary Dx) Start: 01-19-2024 End: 01-19-2024 Refill Yesica Nickerson ACADEMIC ASSISTANT Work Phone: [facility] Comment on above: Bilateral lower extr emity edema Start: 01-08-2024 End: 01-08-2024 Bamboo flowsheet Radhika [...] Start: 01-05-2024 End: 01-05-2024 Refill Yesica Nickerson ACADEMIC ASSISTANT Work Phone: [facility] Comment [...] procedure Yesica Nickerson Work Phone: [facility] [address] Work Phone: Start: 12-04-2023 End: 12-04-2023 ambulatory Yesica Nickerson Work Phone: [facility] Work Phone: Start: 12-04-2023 End: 12-04-2023 Bamboo flowsheet Yesica Nickerson ACADEMIC ASSISTANT Work Phone: [facility] Start: 12-04-2023 End: 12-04-2023 Bamboo flowsheet Yesica Nickerson ACADEMIC ASSISTANT Work Phone: [facility] Start: 12-04-2023 End: 12-04-2023 ambulatory YESICA NICKERSON Not Available Start: 12-04-2023 End: 12-04-2023 Office outpatient visit 15 minutes Yesica Nickerson ACADEMIC ASSISTANT Work Phone: [facility] Comment on above: RENITA positive (Primar y Dx); Peptic ulcer without hemorrhage, perforation, or obstruction; Varicose veins of both lower extremities with pain; Class 1 obesity without serious comorbidity with body mass index (BMI) of 33.0 to 33.9 in adult, unspecified obesity type; Tobacco user; Gastroesophageal reflux disease without esophagitis Start: 11-17-2023 End: 11-17-2023 Refill Yesica Aichholz ACADEMIC ASSISTANT Work Phone: [facility] Comment on above: Bilateral lower extr emity edema Start: 11-06-2023 End: 11-06-2023 Orders Only Yesica Victorianoholz ACADEMIC ASSISTANT Work Phone: [facility] Comment on above: RENITA positive (Primar y Dx) Start: 10-31-2023 End: 10-31-2023 Clinisync Result Encounter Yesica Devonshruthiz ACADEMIC ASSISTANT Work Phone: [facility] Unsolicited Start: 10-31-2023 End: 10-31-2023 Clinisync Result Encounter Yesica Victorianoholz ACADEMIC ASSISTANT Work Phone: [facility] Unsolicited Start: 10-30-2023 End: 10-30-2023 Bamboo flowsheet Yesica Aichholz ACADEMIC ASSISTANT Work Phone: [facility] Start: 10-30-2023 End: 10-30-2023 Bamboo flowsheet Yesica Aichholz ACADEMIC ASSISTANT Work Phone: [facility] Start: 10-30-2023 End: 10-30-2023 Office outpatient visit 25 minutes Yesica Devikaz ACADEMIC ASSISTANT Work Phone: [facility] Comment on above: Other fatigue (Prima ry Dx); Mixed hyperlipidemia (CMS/HCC); Heart palpitations; Class 1 obesity without serious comorbidity in adult, unspecified BMI, unspecified obesity type; Menopause ovarian failure; Dizziness; Hypokalemia Start: 10-30-2023 End: 10-30-2023 ambulatory YESICA AICHHOLZ Not Available Start: 10-21-2023 End: 10-21-2023 Refill Yesica Aichholz ACADEMIC ASSISTANT Work Phone: [facility] Comment on above: Bilateral lower extr emity edema (Primary Dx) Start: 10-16-2023 End: 10-16-2023 Bamboo flowsheet Radhika Quispe MD Work Phone: [facility] Start: 10-16-2023 End: 10-16-2023 Bamboo flowsheet Radhika Quispe MD Work Phone: [facility] Start: 10-16-2023 End: 10-16-2023 Office outpatient new 45 minutes Radhika Quispe MD Work Phone: [facility] Comment on above: Ptosis of both eyeli ds (Primary Dx); Dermatochalasis of both upper eyelids; Loss of part of visual field Start: 10-16-2023 End: 10-16-2023 ambulatory RADHIKA QUISPE Not Available Start: 10-10-2023 End: 10-10-2023 Clinisync Result Encounter Yesica Aichholz ACADEMIC ASSISTANT Work Phone: [facility] External Department Unsolicited Start: 10-10-2023 End: 10-10-2023 Clinisync Result Encounter Yesica Aichholz ACADEMIC ASSISTANT Work Phone: [facility] Unsolicited Start: 09-25-2023 End: 09-25-2023 ambulatory SUNNI A PETITTI Not Available Start: 09-24-2023 End: 09-24-2023 ambulatory YESICA AICHHOLZ Not Available Start: 09-23-2023 End: 09-23-2023 Emergency department patient visit Boby Cevallos [facility] Start: 08-05-2023 End: 08-05-2023 ambulatory YESICA AICHHOLZ Not Available Start: 05-27-2023 End: 05-27-2023 ambulatory ZEESHAN BENSON Not Available Start: 04-29-2023 End: 04-29-2023 ambulatory YESICA AICHHOLZ Not Available Start: 01-20-2023 End: 01-20-2023 ambulatory Tika Otero Other [employer] Other Start: 01-20-2023 Office outpatient vi sit 15 minutes Tika Otero [facility] [place] Start: 06-28-2022 End: 06-28-2022 ambulatory Yesica J Aichholz Work Phone: [facility] Work Phone: Start: 06-28-2022 End: 06-28-2022 Discharged Recurring Yesica Nickerson Work Phone: [facility] Work Phone: Start: 06-11-2022 End: 06-11-2022 ambulatory Elise Stone Other [employer] Other Start: 06-11-2022 Office outpatient ne w 30 minutes Elise Stone [facility] [place] Start: 05-18-2022 End: 05-19-2022 ambulatory VANCE NICKERSON Facility:[facility] Start: 04-19-2022 End: 04-20-2022 ambulatory AVNCE NICKERSON Facility:[facility] Start: 02-28-2022 End: 02-28-2022 Patient encounter procedure Juancarlos Giraldo [facility] Start: 01-11-2022 End: 01-12-2022 ambulatory VANCE NICKERSON Facility:[facility] Start: 11-29-2021 End: 03-03-2022 Preprocedural examination done Zeeshan Benson [facility] Start: 11-29-2021 End: 03-03-2022 Recurring Zeeshan Benson [facility] Start: 11-19-2021 End: 11-19-2021 Patient encounter procedure Juancarlos Giraldo [facility] Start: 08-17-2021 End: 08-17-2021 Patient encounter procedure Zeeshan Benson [facility] Start: 06-15-2021 End: 06-16-2021 ambulatory [employer] COMPUTER CONSULTANT YESICA NICKERSON Facility:[facility] Start: 06-14-2021 End: 06-15-2021 ambulatory [employer] COMPUTER CONSULTANT YESICA NICKERSON Facility: Procedures Date Procedure Procedure Detail Performing Clinician Start: 10-31-2023 ALL SED RATE Yesica white ACADEMIC ASSISTANT Work Phone: Start: 10-16-2023 Visual field xm uni/ bi w/interpretj limited exam Radhika Quispe MD Work Phone: Start: 10-10-2023 ALL CBC WITH AUTO DIFF Yesica Nickerson ACADEMIC ASSISTANT Work Phone: Start: 05-12-2023 Mammography Yesica Malagon cindy ACADEMIC ASSISTANT Work Phone: Plan of Treatment Date Care Activity Detail Author Start: 05-11-2026 Screening for malign ant neoplasm of colon [facility] Start: 05-11-2024 Screening for malign ant neoplasm of breast Mammogram [facility] Start: 01-22-2024 End: 01-21-2025 DHEA-sulfate DHEA-sulfate Lab Routine Menopause ovarian failure Expected: 01/22/2024 (Approximate), Expires: 01/21/2025 [facility] Comment on above: Expected: 01/22/2024 (Approximate), Expires: 01/21/2025 Start: 01-22-2024 End: 01-21-2025 [place] [place] [place] Lab Routine Menopause ovarian failure Expected: 01/22/2024 (Approximate), Expires: 01/21/2025 [facility] Comment on above: Expected: 01/22/2024 (Approximate), Expires: 01/21/2025 Start: 01-22-2024 End: 01-21-2025 Estrone Estrone Lab Routine Menopause ovarian failure Expected: 01/22/2024 (Approximate), Expires: 01/21/2025 [facility] Work Phone: Comment on above: Expected: 01/22/2024 (Approximate), Expires: 01/21/2025 Start: 01-22-2024 End: 01-21-2025 Pregnenolone Pregnenolone Lab Routine Menopause ovarian failure Expected: 01/22/2024 (Approximate), Expires: 01/21/2025 [facility] Comment on above: Expected: 01/22/2024 (Approximate), Expires: 01/21/2025 Start: 01-22-2024 End: 01-21-2025 Progesterone Progesterone Lab Routine Menopause ovarian failure Expected: 01/22/2024 (Approximate), Expires: 01/21/2025 [facility] Comment on above: Expected: 01/22/2024 (Approximate), Expires: 01/21/2025 Start: 01-22-2024 End: 01-21-2025 Testosterone, total and free Testosterone, total and free Lab Routine Menopause ovarian failure Expected: 01/22/2024 (Approximate), Expires: 01/21/2025 [facility] Comment on above: Expected: 01/22/2024 (Approximate), Expires: 01/21/2025 Start: 01-08-2024 End: 01-08-2024 Patient encounter procedure [facility] Comment on above: Arrived Start: 12-25-2023 End: 12-25-2023 Patient encounter procedure 12/25/2023 3:00 PM EST Procedure Visit [facility] [address] [place] [id number] Radhika Quispe MD [address] [place] [address] [facility] Start: 12-04-2023 Hemolytic complement CH50 level [facility] Start: 12-04-2023 End: 12-04-2023 Patient encounter procedure 12/04/2023 9:20 AM EDT Office Visit [facility] [address] [place] [address] Yesica Nickerson NP [address] [place] [address] [facility] Start: 11-20-2023 End: 10-20-2024 Basic metabolic 1998 panel - Serum or Plasma Basic metabolic panel Lab Routine Bilateral lower extremity edema Expected: 11/20/2023 (Approximate), Expires: 10/20/2024 [facility] Work Phone: Comment on above: Expected: 11/20/2023 (Approximate), Expires: 10/20/2024 Start: 10-30-2023 End: 10-29-2024 RENITA BY IFA W/REFLEX ([facility]) RENITA BY IFA W/REFLEX ([facility]) Lab Routine Other fatigue Expected: 10/30/2023 (Approximate), Expires: 10/29/2024 [facility] Comment on above: Expected: 10/30/2023 (Approximate), Expires: 10/29/2024 Start: 10-30-2023 End: 10-29-2024 Basic metabolic 1998 panel - Serum or Plasma Basic metabolic panel Lab Routine Hypokalemia Expected: 10/30/2023 (Approximate), Expires: 10/29/2024 [facility] Work Phone: Comment on above: Expected: 10/30/2023 (Approximate), Expires: 10/29/2024 Start: 10-30-2023 End: 10-29-2024 C reactive protein [Mass/volume] in Serum or Plasma C-reactive protein Lab Routine Other fatigue Expected: 10/30/2023 (Approximate), Expires: 10/29/2024 [facility] Comment on above: Expected: 10/30/2023 (Approximate), Expires: 10/29/2024 Start: 10-30-2023 End: 10-29-2024 DHEA-sulfate DHEA-sulfate Lab Routine Menopause ovarian failure Expected: 10/30/2023 (Approximate), Expires: 10/29/2024 [facility] Comment on above: Expected: 10/30/2023 (Approximate), Expires: 10/29/2024 Start: 10-30-2023 End: 10-29-2024 Erythrocyte sedimentation rate Sedimentation rate, automated Lab Routine Other fatigue Expected: 10/30/2023 (Approximate), Expires: 10/29/2024 [facility] Comment on above: Expected: 10/30/2023 (Approximate), Expires: 10/29/2024 Start: 10-30-2023 End: 10-29-2024 Estradiol Estradiol Lab Routine Menopause ovarian failure Expected: 10/30/2023 (Approximate), Expires: 10/29/2024 [facility] Comment on above: Expected: 10/30/2023 (Approximate), Expires: 10/29/2024 Start: 10-30-2023 End: 10-29-2024 Estrogens, total Estrogens, total Lab Routine Menopause ovarian failure Expected: 10/30/2023 (Approximate), Expires: 10/29/2024 [facility] Comment on above: Expected: 10/30/2023 (Approximate), Expires: 10/29/2024 Start: 10-30-2023 End: 10-29-2024 Magnesium [Mass/volume] in Serum or Plasma Magnesium Lab Routine Heart palpitations Other fatigue Expected: 10/30/2023 (Approximate), Expires: 10/29/2024 [facility] Comment on above: Expected: 10/30/2023 (Approximate), Expires: 10/29/2024 Start: 10-30-2023 End: 10-29-2024 Pregnenolone Pregnenolone Lab Routine Menopause ovarian failure Expected: 10/30/2023 (Approximate), Expires: 10/29/2024 [facility] Comment on above: Expected: 10/30/2023 (Approximate), Expires: 10/29/2024 Start: 10-30-2023 End: 10-29-2024 Progesterone Progesterone Lab Routine Menopause ovarian failure Expected: 10/30/2023 (Approximate), Expires: 10/29/2024 [facility] Comment on above: Expected: 10/30/2023 (Approximate), Expires: 10/29/2024 Start: 10-30-2023 End: 10-29-2024 Testosterone, total and free Testosterone, total and free Lab Routine Menopause ovarian failure Expected: 10/30/2023 (Approximate), Expires: 10/29/2024 [facility] Comment on above: Expected: 10/30/2023 (Approximate), Expires: 10/29/2024 Start: 10-30-2023 End: 10-29-2024 Thyroid peroxidase and thyroglobulin antibodies Thyroid peroxidase and thyroglobulin antibodies Lab Routine Other fatigue Expected: 10/30/2023 (Approximate), Expires: 10/29/2024 [facility] Comment on above: Expected: 10/30/2023 (Approximate), Expires: 10/29/2024 Start: 10-30-2023 End: 10-29-2024 Thyrotropin [Units/volume] in Serum or Plasma TSH Lab Routine Other fatigue Expected: 10/30/2023 (Approximate), Expires: 10/29/2024 [facility] Comment on above: Expected: 10/30/2023 (Approximate), Expires: 10/29/2024 Start: 10-30-2023 End: 10-29-2024 Thyroxine (T4) free [Mass/volume] in Serum or Plasma T4, free Lab Routine Other fatigue Expected: 10/30/2023 (Approximate), Expires: 10/29/2024 [facility] Comment on above: Expected: 10/30/2023 (Approximate), Expires: 10/29/2024 Start: 10-30-2023 End: 10-30-2023 Patient encounter procedure [facility] Comment on above: Mixed hyperlipidemia (CMS/HCC) Start: 10-22-2023 End: 10-22-2023 Patient encounter procedure 10/22/2023 2:00 PM EDT Office Visit [facility] [address] [place] [phone] Yesica Nickerson NP [address] [place] [address] [facility] Start: 10-16-2023 End: 10-16-2023 Patient encounter procedure [facility] Comment on above: Arrived Start: 06-01-2005 Screening for malign ant neoplasm of cervix HPV/Cotest [facility] Start: 06-01-1996 Screening for malign ant neoplasm of cervix Pap Smear [facility] Start: 1975 Screening for malign ant neoplasm of colon [facility] Complement C3 [Mass/volume] in Serum or Plasma [facility] Complement C4 [Mass/volume] in Serum or Plasma [facility] Payers Date Payer Category Payer Self-pay [id number] 2021 Blue Cross Blue Shield BCBS [id number] 2021 Unknown BCBS BCBS [id number] 2021-Present [phone] [id number] .[id number] 1975 Unknown [id number] 2.16.840.1.526871.3.579 .2.593 1975 Unknown [id number] 2.16.840.1.634130.3.579 .2.593 1975 Unknown [id number] 2.16.840.1.371589.3.579 .2.593 1975 Unknown [id number] 2.16.840.1.807438.3.579 .2.593 1975 Unknown [id number] 2.16.840.1.726713.3.579 .2.593 1975 Unknown [id number] 2.16.840.1.637481.3.579 .2.727 1975 Unknown [id number] 2.16.840.1.471248.3.579 .2.727 1975 Unknown [id number] 2.16.840.1.976111.3.579 .2.1259 1975 Unknown [id number] 2.16.840.1.476833.3.579 .2.1259 1975 Unknown [id number] 2.16.840.1.500309.3.579 .2.1258 1975 Unknown [id number] 2.16.840.1.873040.3.579 .2.1258 1975 Unknown [id number] 2.16.840.1.029850.3.579 .2.1258 1975 Unknown [id number] 2.16.840.1.734437.3.579 .2.1258 1975 Unknown [id number] 2.16.840.1.341047.3.579 .2.1258 1975 Unknown [id number] 2.16.840.1.758727.3.579 .2.1258 1975 Unknown [id number] 2.16.840.1.039202.3.579 .2.1258 1975 Unknown [id number] 2.16.840.1.049968.3.579 .2.1258 1975 Unknown [id number] 2.16.840.1.503046.3.579 .2.9 1959 Unknown [id number] Private Health Insurance [facility] Insurance Co [id number] Unknown [id number] 2.16.840.1.716046.3.579 .2.531 Social History Date Type Detail Facility Tobacco smoking status No Smokin g Status Entered [facility] Start: 04-28-2023 End: 04-29-2023 Sex Assigned At Female [facility] Start: 02-28-2022 Tobacco smoking status Light t obacco smoker (finding) [facility] Start: 1975 Sex Assigned At Female F [facility] Start: 05-27-2023 End: 10-16-2023 Tobacco smoking status NHIS Smokes tobacco daily [facility] History of tobacco use Cigarette Smoker [facility] Start: 04-28-2023 End: 10-16-2023 Cigarettes smoked current (pack per day) - Reported 0.5 [facility] Start: 10-16-2023 End: 10-30-2023 Alcoholic beverage intake Ex-drinker (finding) [facility] Do you belong to any clubs or organizations such as anglican groups, unions, fraternal or athletic groups, or [...] [facility] Start: 04-09-2018 Tobacco smoking stat [facility] Smoker (finding) [facility] Functional Status Date Assessment Result Facility 09-23-2023 Functional Status N/A [facility] 02-28-2022 Functional Status No [facility] 11-19-2021 Functional Status N/A [facility] Clinical Notes 06-11-2022 to 01-08-2024 Radhika Quispe MD - 01/08/2024 9:30 AM Татьяна Quispe MD - 12/25/2023 3:00 PM Zohra Nickerson NP - 12/04/2023 10:22 AM Kyra Nickerson NP - 12/04/2023 10:22 AM EDT Note Date & Type Note Facility 01-08-2024 History of Present illness Narrative Assessment/Plan (vit) e cream to suture line documented in this encounter [facility] 12-25-2023 History of Present illness Narrative Assessment/Plan [...] Radhika Quispe MD documented in this encounter [facility] 10-17-2024 History of Present illness Narrative Associated Problem(s): Tobacco user Vapes The patient has been advised of the risks of continued smoking: stroke, OR, all forms of cancer, lung disease, and [...] Medical History: Diagnosis Date Anxiety and depression ([facility]) 04/29/2023 Arthritis Bilateral chronic knee [...] of the risks of continued smoking: stroke, OR, all forms of cancer, lung disease, and [...] down from 40mg documented in this encounter [facility] 10-30-2023 History of Present illness Narrative Associated Problem(s): Heart palpitations Less freq, reviewed holter, no significant findings PT WOULD LIKE A REFILL ON HER OMEPRAZOLE 20MG Audrey Isaacs is a 48 y.o. female presents with chief complaint of No chief complaint on file. HPI: Here for recheck and to review labs and holter monitor. She is having less of heart palpitations and dizziness. Her primary complaint is profound fatigue. Denies chest pain/pressure. Swelling in lower legs is stable, and she does have constipation as well. Since her last visit she has had MRI brain, labs and holter It is also time for her to have repeat labs for her menopause compounded cream SUBJECTIVE: MEDICATIONS: Current Outpatient Medications Medication Instructions ALPRAZolam (XANAX) 0.25 mg, Oral, Daily PRN atorvastatin (LIPITOR) 10 mg, Oral, Daily Hormone Cream Base cream 0.5 mL, Does not apply, Daily, From [facility] drug compound meloxicam (MOBIC) 15 mg, Oral, Daily metaxalone (SKELAXIN) 400 mg, Oral, 4 times daily PRN omeprazole (PRILOSEC) 20 mg, Oral, Daily before breakfast, Do not crush or chew. spironolactone (ALDACTONE) 25 mg, Oral, Daily PRN UNABLE TO FIND 1 tablet, Oral, Daily, Med Name: DHEA 5mg tablet Vitamin D3 2,000 Units, Oral, Weekly ALLERGIES: Allergies Allergen Reactions Amoxicillin Unknown Iodine Other Reaction(s): burning Methylprednisolone Itching Paxil [Paroxetine] Unknown Povidone Iodine Other Povidone-Iodine Other Reaction(s): Redness of Skin Vioxx [Rofecoxib] Unknown Zoloft [Sertraline] Unknown REVIEW OF SYMPTOMS: Review of Systems Constitutional: Positive for fatigue. Negative for appetite change, chills and fever. HENT: Negative for congestion, ear pain and sore throat. Eyes: Negative for pain, discharge, redness and visual disturbance. Burning eyes Respiratory: Negative for cough, shortness of breath and wheezing. Cardiovascular: Positive for palpitations. Negative for chest pain and leg swelling. Gastrointestinal: Positive for constipation. Negative for abdominal pain, blood in stool, diarrhea, nausea and vomiting. Genitourinary: Negative for difficulty urinating, dysuria and frequency. Musculoskeletal: Negative for arthralgias, back pain, joint swelling and myalgias. Skin: Negative for rash and wound. Neurological: Positive for dizziness. Negative for tremors, seizures, syncope and headaches. Psychiatric/Behavioral: Negative for behavioral problems, self-injury and suicidal ideas. The patient is not nervous/anxious. Hematological: Does not bruise/bleed easily. Endocrine: Negative for polydipsia, polyphagia and polyuria. Allergic/Immunologic: Negative for environmental allergies and food allergies. PAST MEDICAL HISTORY Past Medical History: Diagnosis Date Anxiety and depression ([facility]) 04/29/2023 Arthritis Bilateral chronic knee pain 04/29/2023 Bunion Dry eyes Dysmenorrhea Dyspareunia, female 04/29/2023 Fibromyalgia 04/29/2023 GERD without esophagitis Headache 06/17/2007 Low serum cortisol level 04/29/2023 Lymphedema of left arm Menopause ovarian failure 04/29/2023 Menorrhagia with irregular cycle Migraines ([facility]) 04/29/2023 BRITTANY (obstructive sleep apnea) [...] her paternal grandfather. OBJECTIVE: Visit Vitals BP 120/80 (BP Location: Left arm, Patient Position: Sitting, BP Cuff Size: Adult long) Pulse 71 Temp 98.4 F (Temporal) Resp 18 Ht 5' 10 Wt 231 lb 3.2 oz SpO2 97% BMI 33.17 kg/m Smoking Status Every Day BSA 2.28 m Physical Exam Vitals and nursing note reviewed. Constitutional: General: She is not in acute distress. Appearance: Normal appearance. HENT: Head: Normocephalic and atraumatic. Right Ear: External ear normal. Left Ear: External ear normal. Nose: Nose normal. Mouth/Throat: Mouth: Mucous membranes are moist. Eyes: Extraocular Movements: Extraocular movements intact. Conjunctiva/sclera: Conjunctivae normal. Cardiovascular: Rate and Rhythm: Normal rate and regular rhythm. Pulses: Normal pulses. Heart sounds: Normal heart sounds. Pulmonary: Effort: Pulmonary effort is normal. Breath sounds: Normal breath sounds. Musculoskeletal: General: Normal range of motion. Cervical back: Normal range of motion and neck supple. Skin: General: Skin is warm and dry. [...] Problem List Items Addressed This Visit Obesity Mixed hyperlipidemia (CMS/HCC) Relevant Medications atorvastatin (Lipitor) 10 MG tablet Menopause ovarian failure Relevant Orders DHEA-sulfate Estradiol Progesterone Testosterone, total and free Estrogens, total Pregnenolone Heart palpitations - Primary Less freq, reviewed holter, no significant findings Relevant Orders Magnesium Dizziness Other fatigue Relevant Orders Magnesium T4, free TSH Thyroid peroxidase and thyroglobulin antibodies Sedimentation rate, automated C-reactive protein RENITA BY IFA W/REFLEX ([facility]) Hypokalemia Relevant Orders Basic metabolic panel documented in this encounter [facility] 10-16-2023 Note Right Eye Threshold was 30-2. Strategy was [place]. Reliability was good. Progression has no prior data. Foveal threshold was reduced. Findings include superior altitudinal defect. Left Eye Threshold was 30-2. Strategy was [place]. Reliability was good. Progression has no prior data. Foveal threshold was reduced. Findings include superior altitudinal defect. Notes Loss of superior field ou Manual elevation improves >35 degree ou Mrd 0.7mm ou [facility] 10-16-2023 History of Present illness Narrative Assessment/Plan surgical repair indicated ou documented in this encounter [facility] 09-23-2023 Hospital Discharge instructions Patient Education [...] balance is good. If you need to stave jointer one place for a long time, move [...] Watch your dizziness for any changes. Take [id number] and prescription medicines only as told by [...] provider. Document Revised: 01/08/2021 Document Reviewed: 01/08/2021 [employer] Patient Education 2022 [employer]. Follow Up Care 09/23/2023 10:55:56 With:YESICA NICKERSON Address: [address] [place] [address] [phone] Business (1) When:09/26/2023 12:52:48 [facility] 09-23-2023 Note ED Patient Education Note Neurology [...] is good. ? If you need to stave jointer one place for a long time, move [...] your dizziness for any changes. ? Take [id number]-[id number] and prescription medicines only as told by [...] provider. Document Revised: 01/08/2021 Document Reviewed: 01/08/2021 [employer] Patient Education ? 2022 [employer]. [facility] 01-20-2023 Evaluation note Encounter Date Diagnosis [...] no improvement in 2 to 3 days [employer] Other 04-25-2023 Evaluation note* Encounter Date Diagnosis [...] understanding and is agreeable with treatment plan. [employer] Other Evaluation + Plan note No data available [facility] this section [facility]ments Appointment Date:02/28/2022 03:15:00 PM Scheduled Provider:Juancarlos Giraldo MD Location:.Cardiology Clinic Appointment Type:[facility] (FT) [facility] information [facility] Work Phone: Evaluation note* Diagnosis Bilateral [...] esophagitis Esophageal reflux documented in this encounter [facility] HealthcareEvaluation note* Diagnosis Bilateral lower extremity edema- [...] ptosis of eyelid documented in this encounter [facility] Healthcare[facility] note* Diagnosis Bilateral lower extremity edema- [...] perforation, or obstruction documented in this encounter [facility] [facility] Diagnosis Bilateral lower extremity [...] following other surgery documented in this encounter [facility]* [...] Gastroesophageal reflux disease without esophagitis Esophageal reflux Bilateral lower extremity edema documented in this encounter [facility]* [...] Gastroesophageal reflux disease without esophagitis Esophageal reflux Menopause ovarian failure- Primary documented in this [facility]* Diagnosis Other fatigue- Primary Mixed hyperlipidemia (CMS/HCC) Mixed hyperlipidemia Heart palpitations Palpitations Class 1 obesity without serious comorbidity in adult, unspecified BMI, unspecified obesity type Menopause ovarian failure Dizziness Dizziness and giddiness Hypokalemia Hypopotassemia documented in this encounter [facility]* Diagnosis Ptosis of both eyelids- Primary Unspecified ptosis of eyelid Dermatochalasis of both upper eyelids Loss of part of visual field documented in [facility]* Diagnosis Bilateral lower extremity edema- Primary documented in this [facility]* Diagnosis RENITA positive- Primary documented in this [facility]* Diagnosis Bilateral lower extremity edema [facility] Narrative - Reported* Type Description Date Medical History Anxiety Medical History History of muscle spasm Medical History acid reflux Surgical History tonsillectomy Surgical History hernia Surgical History cholecystectomy Surgical History oophorectomy Surgical History Tummy Tuck Surgical History lymph node resection left axill vianney Surgical History hysterectomy 04/2019 Surgical History knee surgery 10/2021 Hospitalization History see above [employer] Other History general Narrative - Reported* Type Description Date Medical History Anxiety Medical History History of muscle spasm Medical History acid reflux Medical History high cholesterol Surgical History tonsillectomy Surgical History hernia Surgical History cholecystectomy Surgical History oophorectomy Surgical History Tummy Tuck Surgical History lymph node resection left axill vianney Surgical History hysterectomy 04/2019 Surgical History knee surgery 10/2021 Hospitalization History see above [employer] Other Hospital Discharge instructions No data available for this section [facility] data available for this section [facility] ([facility]arrative)* Consultation (Routine) - Pending Review Specialty Diagnoses / Procedures Referred By Elizabet moise Referred To Contact Rheumatology Diagnoses RENITA positive Procedures CT OFFICE/OUTPATIENT NEW HIGH MDM 60 MINUTES Yesica Nickerson NP [address] [place] [address] Clay Handley MD [address] [facility] building [address] [place] [phone] Referral ID Status Reason Start Date Expiration Date Visits Requested Visits Authorized [id number] Pending Review Specialty Services Required 11/06/2023 05/04/2024 1 1 [facility] Summary Purpose Family History Relationship Condition Age at Onset Recorded Date/T sharif father Hypertension Unknown grandparent Malignant neoplasm Unknown Advance Directives Advance Directive Response Recorded Date/ Time Advance Directives No March 8:22pm Chief Complaint and Reason for Visit Chief Complaint Thyroid Additional Source Comments INFORMATION SOURCE (unrecogn ized section and content) DATE CREATED AUTHOR 08/02/2021 [facility] Specialist DATE CREATED AUTHOR AUTHOR'S ORGANIZ ATION [facility]2022 [facility] DATE CREATED AUTHOR AUTHOR'S ORGANIZ ATION 09/25/2023 [facility] DATE CREATED AUTHOR AUTHOR'S ORGANIZ ATION 09/30/2023 [facility] DATE CREATED AUTHOR AUTHOR'S ORGANIZ ATION 12/15/2023 [facility] DATE CREATED AUTHOR AUTHOR'S ORGANIZ ATION 01/11/2024 [facility] EPIC Care Team (unrecognized sect ion and content) Team Status: Active Member Role Status Dates Yesica Nickerson Primary Care Provider Active Team Status: Inactive Member Role Status Dates Gopal Potter MD Attending Provider Active Yesica Nickerson Primary Care Provider Active [employer] Relationship Specialty Start Date End Date Brian Leblanc MD [address] [place] [phone] PCP - General Family Medicine 04/14/23 Yesica Nickerson NP [address] [place] [address] PCP - [employer] 09/18/23 [employer] Relationship Specialty Start Date End Date Brian Leblanc MD [address] [place] [phone] PCP - General Family Medicine 04/14/23 Yesica Nickerson NP [address] [place] [address] PCP - [employer] 09/18/23 Team Status: Inactive Member Role Status Dates Yesica Nickerson Primary Care Provider Active Sta rt: December 04, 2023 End: December 04, 2023 Salinas White MD Attending Provider Active St art: December 04, 2023 End: December 04, 2023 [employer] Specialist Relationship Specialty Start Date End Date Brian Leblanc MD [address] [place] [phone] PCP - General Family Medicine 04/14/23 Yesica Nickerson NP [address] [place] [address] PCP - [employer] 09/18/23 [employer] Specialist Relationship Specialty Start Date End Date Brian Leblanc MD [address] [place] [phone] PCP - General Family Medicine 04/14/23 Yesica Nickerson NP [address] [place] [phone] PCP - [employer] 09/18/23 [employer] Specialist Relationship Specialty Start Date End Date Brian Leblanc MD [address] [place] [address] PCP - General Family Medicine 04/14/23 Yesica Nickerson NP [address] [place] [phone] PCP - [employer] 09/18/23 [employer] Specialist Relationship Specialty Start Date End Date Brian Leblanc MD [address] [place] [phone] PCP - General Family Medicine 04/14/23 Yesica Nickerson NP [address] [place] [address] PCP - [employer] 09/18/23 [employer] Specialist Relationship Specialty Start Date End Date Brian Leblanc MD [address] [place] [address] PCP - General Family Medicine 04/14/23 Yesica Nickerson NP [address] [place] [address] PCP - [employer] 09/18/23 [employer] Specialist Relationship Specialty Start Date End Date Brian Leblanc MD [address] [place] [address] PCP - General Family Medicine 04/14/23 Yesica Nickerson NP [address] [place] [address] PCP - [employer] 09/18/23 [employer] Specialist Relationship Specialty Start Date End Date Brian Leblanc MD [address] [place] [address] PCP - General Family Medicine 04/14/23 [employer] Specialist Relationship Specialty Start Date End Date Brian Leblanc MD [address] [place] [address] PCP - General Family Medicine 04/14/23 [employer] Specialist Relationship Specialty Start Date End Date Brian Leblanc MD [address] [place] [address] PCP - General Family Medicine 04/14/23 [employer] Specialist Relationship Specialty Start Date End Date Brian Leblanc MD [address] [place] [address] PCP - General Family Medicine 04/14/23 Yesica Nickerson NP [address] [place] [address] PCP - [employer] 09/18/23 [employer] Specialist Relationship Specialty Start Date End Date Brian Leblanc MD [address] [place] [phone] PCP - General Family Medicine 04/14/23 Yesica Nickerson NP [address] [place] [address] PCP - Shauna Rivera 09/18/23 REASON FOR VISIT (unrecogniz ed section and content) Reason Onset Date Comments Med Refill 01/05/2024 Reason Comments Follow-up Reason Comments Med Refill Reason Comments Ptosis Goals (unrecognized section and content) Goals may [...] BE BASED ON THE PRIMARY CLINICAL RECORDS. [employer] provides no warranty or guarantee of the accuracy or completeness of information in this document.
[2024-02-18 04:06] LABS: Estradiol <5.0 pg/mL (.); Progesterone 0.4 ng/mL (.)
[2024-02-21 12:07] LABS: Free Testosterone(Direct) 0.8 pg/mL (0.0-4.2); Testosterone 16 ng/dL (4-50)
[2024-02-21 15:11] LABS: Estrone, Serum 32 pg/mL (.)
== END 2024-02-17 11:55 | disposition home or self-care (01) ==
PROVIDERS: PCP Nurse Practitioner; Visit Provider Nurse Practitioner
DX: E28.39 Other primary ovarian failure (principal)
CPT/HCPCS: 36415; 82627; 82670; 82679; 84140; 84144; 84402; 84403